=== PATIENT | male | born 1995 | race Two or more races ===

== ENCOUNTER 2020-04-12 09:25 | Outpatient (REF) | payer MEDICAID, SELFPAY | END 2020-04-12 09:26 | disposition home or self-care (01) | LOC: HO.LAB 09:25 | PROVIDERS: Visit Provider Internal Medicine | DX: Z20.822 Contact with and (suspected) exposure to COVID-19 (principal) | CPT/HCPCS: 36415; C9803; U0003; U0005 ==

== ENCOUNTER 2021-12-06 18:10 | Emergency (ER) | payer MEDICAID, SELFPAY | END 2021-12-06 19:37 | disposition left against medical advice (07) | PROVIDERS: Emergency Provider Emergency Medicine | DX: H57.11 Ocular pain, right eye (principal) ==

== ENCOUNTER 2022-05-20 11:37 | Emergency (ER) | payer MEDICAID, SELFPAY ==
--- NOTE | ~2022-05-20 | CT_ITS ---
EXAMINATION: CT SOFT TISSUE NECK WITH CONTRAST CLINICAL INFORMATION: Pain and swelling. COMPARISON: No relevant prior imaging. TECHNIQUE: Following the intravenous administration of 100 mL of Omnipaque 350 intravenous contrast, helical imaging was performed in the axial plane with generation of coronal and sagittal reformatted images. This CT examination was performed using dose optimization techniques as appropriate, variously including the following: *Automated exposure control *Adjustment of mA and/or kV according to patient size (this includes techniques or standardized protocols for targeted exams where dose is matched to indication/reason for exam; i.e. extremities or head) *Use of iterative reconstruction technique DLP: 1892 mGy-cm FINDINGS: There is no discrete drainable fluid collection. No pathologically enlarged cervical lymph nodes. No mediastinal or axillary adenopathy is visualized within the [id number] of this examination. Pharyngeal mucosal spaces are unremarkable. Parapharyngeal and retromaxillary fat is preserved. Api Developer spaces are symmetric. The parotid and submandibular glands are normal. The tongue base and epiglottis are normal. Preepiglottic fat is preserved. Glottic and subglottic airways are widely patent. The thyroid gland is normal and the remainder of the visualized visceral soft tissues are normal. Lung apices are clear. Aortic arch apex is normal. Cervical carotid and vertebral arteries are patent. Internal jugular veins fill symmetrically. There is no acute osseous finding. No worrisome lytic or blastic osseous lesion. Grossly no spinal canal compromise. The skull base is intact. No mastoid middle ear effusion. No active paranasal sinus disease. Limited visualization the intracranial anatomy reveals no abnormal finding. CT/CT soft tissue neck w IV con IMPRESSION: Unremarkable soft tissue neck CT scan. No discrete drainable fluid collection or abnormal inflammatory changes. No pathologically enlarged cervical lymph nodes.
--- NOTE | ~2022-05-20 | XR_ITS ---
EXAMINATION: XR CHEST CLINICAL INFORMATION: Chest pain. COMPARISON: None available. TECHNIQUE: Frontal view of the chest was obtained. FINDINGS: No significant abnormality is noted involving the heart, lungs, mediastinum, bony thorax or soft tissues. XR/XR chest 1V IMPRESSION: No acute cardiopulmonary process.
--- NOTE | ~2022-05-20 | CT_ITS ---
EXAMINATION: CT CHEST, ABDOMEN AND PELVIS WITH CONTRAST CLINICAL INFORMATION: Reason for Exam epigastric pain. Abdominal pain. COMPARISON: No pertinent prior studies are available for comparison TECHNIQUE: Multidetector volumetric imaging was performed from the thoracic inlet through the pubic symphysis following the administration of: Oral contrast: None Intravenous contrast: 125 mL Omnipaque 350 No contrast reaction reported Sagittal and coronal reformatted images were obtained on the technologist workstation. Total exam dose-length product 654 mGy-cm FINDINGS: CHEST: Lung: Trachea and central airway are patent. No focal consolidation. No significant pulmonary nodules are seen. Pleura: No pleural effusion or pneumothorax. Mediastinum: No suspicious thyroid findings. Normal heart size. No pericardial effusion. No hilar or mediastinal lymphadenopathy. Vascular: Normal caliber aorta.. Chest Wall/Axilla: No axillary or internal mammary lymphadenopathy. ABDOMEN/PELVIS: Liver, Gallbladder and Biliary Tree: The liver is normal in size, shape, and attenuation. No focal hepatic lesion or biliary ductal dilatation is present. The gallbladder is unremarkable with no evidence of radiopaque gallstones, gallbladder wall thickening, or obvious pericholecystic inflammatory changes. Pancreas: Unremarkable. No acute inflammatory changes. Spleen: Unremarkable. No focal lesion. Adrenal Glands: Unremarkable Kidneys and Ureters: The kidneys are normal in size, shape, and attenuation. No hydronephrosis, hydroureter, or calculi. Gastrointestinal Tract: Stomach and small bowel non-dilated. No colonic wall thickening or pericolonic inflammatory changes. The appendix is not identified. There appears be surgical clip in the cecum, could reflect prior appendectomy. No acute inflammatory changes seen in the right upper quadrant. No free fluid. No free air. Abdominal Wall: No significant hernia is appreciated. Lymphovascular Structures: No lymphadenopathy. The aorta is unremarkable. Bladder: No focal mass or wall thickening seen. No bladder calculi. Pelvic Viscera: Unremarkable. Osseous Structures: No acute or suspicious osseous abnormality. CT/CT abdomen pelvis w IV con IMPRESSION: *No acute findings identified in the chest. *No acute findings identified in the abdomen or pelvis. *The appendix not visualized. Question prior appendectomy. *Etiology of the patient's symptoms has not been identified by CT.
[2022-05-20 11:45] VITALS: BP 164/82; BP 198/105; PULSE 101; PULSE 108; RESP 20; TEMP 36.8; O2SAT 100; BMI 26.6
--- NOTE | 2022-05-20 11:45 | ED.GENADULT ---
HPI - General Adult General Chief complaint: General Medical Stated complaint: Panic attack, SOB per EMS Time Seen by Provider: 05/20/22 11:44 Source: patient and EMS Mode of arrival: EMS Limitations: no limitations History of Present Illness HPI narrative: Patient is a 26 year old assigned male at with a history of anxiety presenting to the emergency department today with epigastric pain, neck pain, and an anxiety attack. Patient states that he has been nauseous and vomiting but now he is having epigastric pain and neck pain. Patient denies any dizziness, lightheadedness, fever, chills, blurry vision, double vision, loss of vision, chest pain, difficulty breathing, shortness of breath, back pain, night sweats, pain with urination, increased urinary frequency, increased urinary urgency, blood in his urine or stool, syncope or a near syncopal episode, recent trauma or falls, bowel incontinence, bladder incontinence, bowel retention, bladder retention, or any other complaints at this time. Onset (ago): minute(s) Location: chest Severity: mild Severity scale (1-10): 3 Relieving factors: none Exacerbating factors: none Associated symptoms: nausea/vomiting Treatments prior to arrival: none Related Data Previous Rx's Medication Instructions Recorded metoclopramide HCl 10 mg tablet 10 mg PO Q6H PRN nausea and 05/20/22 (Reglan) vomiting #10 tabs Allergies Allergy/AdvReac Type Severity Reaction Status Date / Time No Known Allergies Allergy Unverified 11/19/19 16:18 [No Known Allergies*] Review of Systems Constitutional: Constitutional: Reports no additional constitutional complaints, Denies chills, Denies fever(s) and Denies night sweats Eyes: Eyes: Reports no additional eye complaints, Denies blurry vision, Denies change in vision, Denies diplopia, Denies eye discharge, Denies loss of vision and Denies eye pain ENT: Denies dizziness and Reports neck pain Cardiovascular: Cardiovascular: Reports no additional cardiovascular complaints, Denies chest pain, Denies lightheadedness, Denies Loss of Consciousness and Denies dyspnea Respiratory: Respiratory: Reports no additional respiratory complaints and Denies dyspnea Gastrointestinal: Gastrointestinal: Reports no additional gastrointestinal complaints, Reports abdominal pain, Denies melena, Denies hematochezia, Denies change in bowel habits, Denies change in stool character, Reports nausea and Reports vomiting Genitourinary: Genitourinary: Reports no additional male genitourinary complaints, Denies hematuria, Denies oliguria, Denies difficulty urinating, Denies dysuria, Denies urinary frequency, Denies urinary hesitancy, Denies urinary incontinence and Denies urinary urgency Musculoskeletal: Musculoskeletal: Reports no additional musculoskeletal complaints, Reports neck pain, Denies numbness and Denies tingling Neurologic: Denies dizziness, Denies loss of vision, Denies numbness and Denies tingling Psychiatric: Psychiatric: Reports no additional psychiatric complaints Endocrine: Endocrine: Reports no additional endocrine complaints Hematologic/Lymphatic: Hematologic/Lymphatic: Reports no additional hematologic/lymphatic complaints Allergic/Immunologic: Allergic/Immunologic: Reports no additional allergic/immunologic complaints [facility] Past Medical History Attestation statement: The following information was validated with the patient. Source: old records reviewed and nursing notes reviewed Social History Social History Smoked in Last 30 Days: No Use of substances other than those prescribed or required for medical reasons: Yes Substance Use Type: Marijuana Substance Use Frequency: Daily Last Used Substance: Days (ago) Advance Directives: No Advance Directives Information Provided: No Physical Exam ED Vital Signs: Vital Signs - 24 hr 05/20/22 11:45 05/20/22 12:19 05/20/22 13:17 Temperature 98.2 F Pulse Rate 101 H Pulse Rate [Apical] 101 H Respiratory Rate 20 20 Blood Pressure 198/105 H Pulse Oximetry 100 Oxygen Delivery Method Room Air 05/20/22 13:26 05/20/22 14:35 Temperature 98.8 F Pulse Rate 95 109 H Pulse Rate [Apical] Respiratory Rate 16 Blood Pressure 172/95 H Pulse Oximetry 98 Oxygen Delivery Method Room Air BMI result Body Mass Index 26.6 Const General: cooperative, no acute distress, alert and awake Nutritional Appearance: well nourished Orientation/consciousness: patient oriented x3 Limitations: no limitations HENMT Head: Yes normal to inspection and Yes atraumatic Ears: hearing grossly normal bilaterally and external ears normal General nose exam: Normal external nose present, no nasal discharge noted and no epistaxis Face and sinus: Yes normal facial exam, No abrasion and No laceration Mouth: Normal oral and palatal mucosa present, no drooling and no muffled voice Eyes General: appearance normal, both eyes and all related structures Periorbital: periorbital findings normal Eyelids: Yes eyelids normal Conjunctivae: conjunctivae normal Pupils: Equal, round and reactive pupils present EOM: EOMs intact bilaterally Neck Neck: Yes normal visual inspection, Yes full ROM and Yes no lymphadenopathy Chest Chest palpation & inspection: normal inspection of the chest Resp Effort & Inspection: normal respiratory effort and able to speak in complete sentences Auscultation: clear to auscultation bilaterally Cardio Rate: tachycardic Rhythm: regular rhythm GI Inspection: Yes normal to inspection Palpation (GI): Soft to palpation, not firm, nontender, no guarding and not rigid Neuro General: patient oriented x3 and moves all extremities Cranial nerves: Yes Equal, round and reactive pupils present Cognition (Neuro): normal cognition Motor exam (neuro): 5/5 motor strength present throughout Sensory Exam: Normal double simultaneous stimulation for sensation Coordination: [id number] test normal Extrem General: Yes normal to inspection, Yes full ROM and Yes capillary refill normal Psych Appearance: grossly normal Mental Status: mental status grossly normal Affect: normal affect Attitude: cooperative Thought process: Normal thought process present Thought content: Normal thought content present Insight: Good insight present (Psych) Medications Administered Discontinued Medications Generic Name Dose Route Start Last Admin Trade Name Freq PRN Reason Stop Dose Admin Al Hydroxide/Mg Hydroxide 15 ml 05/20/22 13:08 05/20/22 13:16 Magnesium Hydrox/Alum Hydrox 30 Ml Oral.Susp PO 05/20/22 13:09 15 ml ONCE ONE Administration Sodium Chloride 1,000 mls @ 999 mls/hr 05/20/22 12:00 05/20/22 12:59 Ns IV 05/20/22 13:00 Infused .Q1H1M PRIYANKA Infusion Sodium Chloride 1,000 mls @ 999 mls/hr 05/20/22 15:15 05/20/22 16:51 Ns IV 05/20/22 16:15 Infused .Q1H1M PRIYANKA Infusion Iohexol 100 ml 05/20/22 14:02 05/20/22 14:02 Iohexol 350 Mg/Ml 100 Ml Infus..Btl IV 05/20/22 14:03 100 ml ONCE ONE Administration Lorazepam 1 mg 05/20/22 11:48 05/20/22 12:07 Lorazepam 2 Mg/Ml Vial IVPUSH 05/20/22 11:49 1 mg ONCE ONE Administration Metoclopramide HCl 10 mg 05/20/22 15:13 05/20/22 15:26 Metoclopramide Hcl 10 Mg/2 Ml Vial IVPUSH 05/20/22 15:14 10 mg ONCE ONE Administration Morphine Sulfate 4 mg 05/20/22 13:08 05/20/22 13:17 Morphine Sulfate 4 Mg/Ml Cartridge IVPUSH 05/20/22 13:09 4 mg ONCE ONE Administration Protocol Ondansetron HCl 4 mg 05/20/22 13:08 05/20/22 13:17 Ondansetron Hcl 4 Mg/2 Ml Vial IVPUSH 05/20/22 13:09 4 mg ONCE ONE Administration Pantoprazole Sodium 40 mg 05/20/22 11:48 05/20/22 12:07 Pantoprazole Sodium 40 Mg/10 Ml Vial IVPUSH 05/20/22 11:49 40 mg ONCE ONE Administration Medical Decision Making Medical Decision Making [facility] Narrative: Patient is a 26 year old assigned male at with a history of anxiety and diabetes presenting to the emergency department today with nausea, vomiting, epigastric pain, and neck pain. Patient's physical exam showed tachycardia but was otherwise unremarkable. Patient's blood work was unremarkable. Patient's urine showed no acute process. Patient's drug screen did come back positive for opiates however, I believe this to be secondary to the morphine we gave him in the department. Patient's EKG showed tachycardia. Patient's chest x-ray, chest CT, soft tissue next CT, and abdomen/pelvis CT showed no acute process. I explained my physical exam findings as well as all test results to the patient. I answered all questions asked by the patient. Patient received IV fluids and anit-emetics which he stated helped his symptoms significantly. I stressed the importance of the patient taking his medication as prescribed. I stressed the importance of the patient following up with his primary care provider. I stressed the importance of the patient returning to the emergency department immediately if his symptoms were to worsen or if he were to develop any dizziness, shortness of breath, difficulty breathing, chest pain, blurry vision, loss of vision, nausea, vomiting, abdominal pain, fever, chills, back pain, or any other complaints. Patient verbalized agreement and understanding with this treatment plan and discharge. Differential Diagnosis Differential Diagnoses: The differential diagnosis associated with the presentation includes viral illness, nausea, vomiting Lab Data MDM Lab Attestation statement: I reviewed the patient's lab results. 05/20/22 12:01 05/20/22 12:01 Labs: Lab Results 05/20/22 05/20/22 05/20/22 Range/Units 11:52 12:01 12:01 WBC 11.1 H (4.8-10.8) X10*3/uL RBC 4.89 (4.60-5.80) X10*6/uL Hgb 14.9 (14.0-18.0) g/dl Hct 41.4 L (42.0-52.0) % MCV 84.7 (80.0-98.0) fL MCH 30.5 (27.0-33.0) pg MCHC 36.0 (31.0-36.0) g/dl RDW 11.7 (11.0-16.0) % Plt Count 256 (160-400) X10*3/uL MPV 10.8 (9.4-12.4) fL Immature Gran % (Auto) 0.3 (0.0-0.4) % Neut % (Auto) 76.1 H (45-73) % Lymph % (Auto) 17.1 L (20-40) % [place] % (Auto) 5.9 (2-11) % Eos % (Auto) 0.2 (0-4) % Baso % (Auto) 0.4 (0-2) % Lymph # (Auto) 1.9 (1.2-4.9) X10*3/uL [place] # (Auto) 0.7 (0.1-1.2) X10*3/uL Eos # (Auto) 0.0 (0.0-0.4) X10*3/uL Baso # (Auto) 0.1 (0.0-0.2) X10*3/uL Abs Immat Gran (auto) 0.03 (0.00-0.03) X10*3/uL Absolute Neuts (auto) 8.5 H (2.0-8.3) x10*3/uL Absolute Nucleated RBC 0.000 (0.0-0.012) X10*3/uL Nucleated RBC % (auto) 0.0 (0.0-0.2) /100WBC VBG pH (7.32-7.43) VBG pCO2 mmHg VBG pO2 mmHg VBG HCO3 (22-26) mmol/L VBG O2 Saturation % VBG Base Excess mmol/L Sodium 137 (135-145) mmol/L Potassium 4.9 (3.3-5.1) mmol/L Chloride 100 (96-108) mmol/L Carbon Dioxide 22 (22-29) mmol/L Anion Gap 20 (12-20) BUN 18 H (9-16) mg/dL Creatinine 1.04 (0.5-1.4) mg/dL Estim Creat Clear Calc 98.8 Estimated GFR > 60 Random Glucose 314 H (60-115) mg/dL Calcium 10.0 (8.4-10.2) mg/dL Magnesium 1.9 (1.6-2.6) mg/dL Total Bilirubin 1.7 H (0.0-1.0) mg/dL AST 21 (5-37) U/L ALT 12 (0-40) U/L Alkaline Phosphatase 90 (39-117) U/L Ammonia (13-55) umol/L Total Creatine Kinase 79 (38-174) U/L Troponin I High Sens (<3.5-35.0) ng/L Total Protein 7.8 (6.5-8.0) g/dL Albumin 4.6 (3.5-5.0) g/dL Lipase 20 (8-78) U/L Urine Color Urine Appearance Urine pH (5.0-9.0) Ur Specific [place] (1.005-1.025) Urine Protein (Neg-Trace) mg/dL Urine Glucose (UA) (Negative) mg/dL Urine Ketones (Negative) mg/dL Urine Blood (Negative) Urine Nitrite (Negative) Ur Leukocyte Esterase (Negative) Urine RBC (0-2) /HPF Urine WBC (0-5) /HPF Ur Squamous Epith Cells (0-2) /HPF Urine Bacteria (None Seen) Hyaline Casts (0-2) /LPF Urine Opiates Screen (Not Detect) Urine Fentanyl Screen (Not Detect) Ur Barbiturates Screen (Not Detect) Ur Phencyclidine Scrn (Not Detect) Ur Amphetamines Screen (Not Detect) U Benzodiazepines Scrn (Not Detect) Urine Cocaine Screen (Not Detect) U Marijuana (THC) Screen (Not Detect) Ethyl Alcohol mg/dL COVID-19 ([facility]) Negative (Negative) COVID-19 Clin Com See Note S. pyogenes GrpA JOSE (Negative) 05/20/22 05/20/22 05/20/22 Range/Units 12:01 12:01 12:01 WBC (4.8-10.8) X10*3/uL RBC (4.60-5.80) X10*6/uL Hgb (14.0-18.0) g/dl Hct (42.0-52.0) % MCV (80.0-98.0) fL MCH (27.0-33.0) pg MCHC (31.0-36.0) g/dl RDW (11.0-16.0) % Plt Count (160-400) X10*3/uL MPV (9.4-12.4) fL Immature Gran % (Auto) (0.0-0.4) % Neut % (Auto) (45-73) % Lymph % (Auto) (20-40) % [place] % (Auto) (2-11) % Eos % (Auto) (0-4) % Baso % (Auto) (0-2) % Lymph # (Auto) (1.2-4.9) X10*3/uL [place] # (Auto) (0.1-1.2) X10*3/uL Eos # (Auto) (0.0-0.4) X10*3/uL Baso # (Auto) (0.0-0.2) X10*3/uL Abs Immat Gran (auto) (0.00-0.03) X10*3/uL Absolute Neuts (auto) (2.0-8.3) x10*3/uL Absolute Nucleated RBC (0.0-0.012) X10*3/uL Nucleated RBC % (auto) (0.0-0.2) /100WBC VBG pH (7.32-7.43) VBG pCO2 mmHg VBG pO2 mmHg VBG HCO3 (22-26) mmol/L VBG O2 Saturation % VBG Base Excess mmol/L Sodium (135-145) mmol/L Potassium (3.3-5.1) mmol/L Chloride (96-108) mmol/L Carbon Dioxide (22-29) mmol/L Anion Gap (12-20) BUN (9-16) mg/dL Creatinine (0.5-1.4) mg/dL Estim Creat Clear Calc Estimated GFR Random Glucose (60-115) mg/dL Calcium (8.4-10.2) mg/dL Magnesium (1.6-2.6) mg/dL Total Bilirubin (0.0-1.0) mg/dL AST (5-37) U/L ALT (0-40) U/L Alkaline Phosphatase (39-117) U/L Ammonia 28 (13-55) umol/L Total Creatine Kinase (38-174) U/L Troponin I High Sens < 3.5 (<3.5-35.0) ng/L Total Protein (6.5-8.0) g/dL Albumin (3.5-5.0) g/dL Lipase (8-78) U/L Urine Color Urine Appearance Urine pH (5.0-9.0) Ur Specific [place] (1.005-1.025) Urine Protein (Neg-Trace) mg/dL Urine Glucose (UA) (Negative) mg/dL Urine Ketones (Negative) mg/dL Urine Blood (Negative) Urine Nitrite (Negative) Ur Leukocyte Esterase (Negative) Urine RBC (0-2) /HPF Urine WBC (0-5) /HPF Ur Squamous Epith Cells (0-2) /HPF Urine Bacteria (None Seen) Hyaline Casts (0-2) /LPF Urine Opiates Screen (Not Detect) Urine Fentanyl Screen (Not Detect) Ur Barbiturates Screen (Not Detect) Ur Phencyclidine Scrn (Not Detect) Ur Amphetamines Screen (Not Detect) U Benzodiazepines Scrn (Not Detect) Urine Cocaine Screen (Not Detect) U Marijuana (THC) Screen (Not Detect) Ethyl Alcohol < 10 mg/dL COVID-19 ([facility]) (Negative) COVID-19 Clin Com S. pyogenes GrpA JOSE (Negative) 05/20/22 05/20/22 05/20/22 Range/Units 12:05 14:15 14:47 WBC (4.8-10.8) X10*3/uL RBC (4.60-5.80) X10*6/uL Hgb (14.0-18.0) g/dl Hct (42.0-52.0) % MCV (80.0-98.0) fL MCH (27.0-33.0) pg MCHC (31.0-36.0) g/dl RDW (11.0-16.0) % Plt Count (160-400) X10*3/uL MPV (9.4-12.4) fL Immature Gran % (Auto) (0.0-0.4) % Neut % (Auto) (45-73) % Lymph % (Auto) (20-40) % [place] % (Auto) (2-11) % Eos % (Auto) (0-4) % Baso % (Auto) (0-2) % Lymph # (Auto) (1.2-4.9) X10*3/uL [place] # (Auto) (0.1-1.2) X10*3/uL Eos # (Auto) (0.0-0.4) X10*3/uL Baso # (Auto) (0.0-0.2) X10*3/uL Abs Immat Gran (auto) (0.00-0.03) X10*3/uL Absolute Neuts (auto) (2.0-8.3) x10*3/uL Absolute Nucleated RBC (0.0-0.012) X10*3/uL Nucleated RBC % (auto) (0.0-0.2) /100WBC VBG pH 7.47 H (7.32-7.43) VBG pCO2 28 mmHg VBG pO2 54 mmHg VBG HCO3 20 L (22-26) mmol/L VBG O2 Saturation 86.0 % VBG Base Excess -1.3 mmol/L Sodium (135-145) mmol/L Potassium (3.3-5.1) mmol/L Chloride (96-108) mmol/L Carbon Dioxide (22-29) mmol/L Anion Gap (12-20) BUN (9-16) mg/dL Creatinine (0.5-1.4) mg/dL Estim Creat Clear Calc Estimated GFR Random Glucose (60-115) mg/dL Calcium (8.4-10.2) mg/dL Magnesium (1.6-2.6) mg/dL Total Bilirubin (0.0-1.0) mg/dL AST (5-37) U/L ALT (0-40) U/L Alkaline Phosphatase (39-117) U/L Ammonia (13-55) umol/L Total Creatine Kinase (38-174) U/L Troponin I High Sens (<3.5-35.0) ng/L Total Protein (6.5-8.0) g/dL Albumin (3.5-5.0) g/dL Lipase (8-78) U/L Urine Color Yellow Urine Appearance Clear Urine pH 6.0 (5.0-9.0) Ur Specific [place] >= 1.030 H (1.005-1.025) Urine Protein 300 (3+) H (Neg-Trace) mg/dL Urine Glucose (UA) >=1000 H (Negative) mg/dL Urine Ketones 80 (Negative) mg/dL Urine Blood Large (3+) H (Negative) Urine Nitrite Negative (Negative) Ur Leukocyte Esterase Negative (Negative) Urine RBC >20 H (0-2) /HPF Urine WBC 0-5 (0-5) /HPF Ur Squamous Epith Cells 0-2 (0-2) /HPF Urine Bacteria None Seen (None Seen) Hyaline Casts 0-2 (0-2) /LPF Urine Opiates Screen (Not Detect) Urine Fentanyl Screen (Not Detect) Ur Barbiturates Screen (Not Detect) Ur Phencyclidine Scrn (Not Detect) Ur Amphetamines Screen (Not Detect) U Benzodiazepines Scrn (Not Detect) Urine Cocaine Screen (Not Detect) U Marijuana (THC) Screen (Not Detect) Ethyl Alcohol mg/dL COVID-19 ([facility]) (Negative) COVID-19 Clin Com S. pyogenes GrpA JOSE Negative (Negative) 05/20/22 Range/Units 14:47 WBC (4.8-10.8) X10*3/uL RBC (4.60-5.80) X10*6/uL Hgb (14.0-18.0) g/dl Hct (42.0-52.0) % MCV (80.0-98.0) fL MCH (27.0-33.0) pg MCHC (31.0-36.0) g/dl RDW (11.0-16.0) % Plt Count (160-400) X10*3/uL MPV (9.4-12.4) fL Immature Gran % (Auto) (0.0-0.4) % Neut % (Auto) (45-73) % Lymph % (Auto) (20-40) % [place] % (Auto) (2-11) % Eos % (Auto) (0-4) % Baso % (Auto) (0-2) % Lymph # (Auto) (1.2-4.9) X10*3/uL [place] # (Auto) (0.1-1.2) X10*3/uL Eos # (Auto) (0.0-0.4) X10*3/uL Baso # (Auto) (0.0-0.2) X10*3/uL Abs Immat Gran (auto) (0.00-0.03) X10*3/uL Absolute Neuts (auto) (2.0-8.3) x10*3/uL Absolute Nucleated RBC (0.0-0.012) X10*3/uL Nucleated RBC % (auto) (0.0-0.2) /100WBC VBG pH (7.32-7.43) VBG pCO2 mmHg VBG pO2 mmHg VBG HCO3 (22-26) mmol/L VBG O2 Saturation % VBG Base Excess mmol/L Sodium (135-145) mmol/L Potassium (3.3-5.1) mmol/L Chloride (96-108) mmol/L Carbon Dioxide (22-29) mmol/L Anion Gap (12-20) BUN (9-16) mg/dL Creatinine (0.5-1.4) mg/dL Estim Creat Clear Calc Estimated GFR Random Glucose (60-115) mg/dL Calcium (8.4-10.2) mg/dL Magnesium (1.6-2.6) mg/dL Total Bilirubin (0.0-1.0) mg/dL AST (5-37) U/L ALT (0-40) U/L Alkaline Phosphatase (39-117) U/L Ammonia (13-55) umol/L Total Creatine Kinase (38-174) U/L Troponin I High Sens (<3.5-35.0) ng/L Total Protein (6.5-8.0) g/dL Albumin (3.5-5.0) g/dL Lipase (8-78) U/L Urine Color Urine Appearance Urine pH (5.0-9.0) Ur Specific [place] (1.005-1.025) Urine Protein (Neg-Trace) mg/dL Urine Glucose (UA) (Negative) mg/dL Urine Ketones (Negative) mg/dL Urine Blood (Negative) Urine Nitrite (Negative) Ur Leukocyte Esterase (Negative) Urine RBC (0-2) /HPF Urine WBC (0-5) /HPF Ur Squamous Epith Cells (0-2) /HPF Urine Bacteria (None Seen) Hyaline Casts (0-2) /LPF Urine Opiates Screen POSITIVE H (Not Detect) Urine Fentanyl Screen Not Detected (Not Detect) Ur Barbiturates Screen Not Detected (Not Detect) Ur Phencyclidine Scrn Not Detected (Not Detect) Ur Amphetamines Screen Not Detected (Not Detect) U Benzodiazepines Scrn Not Detected (Not Detect) Urine Cocaine Screen Not Detected (Not Detect) U Marijuana (THC) Screen POSITIVE H (Not Detect) Ethyl Alcohol mg/dL COVID-19 ([facility]) (Negative) COVID-19 Clin Com S. pyogenes GrpA JOSE (Negative) Independent Interpretation I performed an independent interpretation of an: EKG Interpretation: Vent. Rate: 104 BPM ? ? Atrial Rate: 104 BPM P-R Int: 126 ms? QRS Dur: 094 ms QT Int: 340 ms ? ? ? P-R-T Axes: 063 055 065 degrees QTc Int: 447 ms ? Sinus tachycardia with Premature atrial complexes with Aberrant conduction Otherwise normal ECG No previous ECGs available DD/ 1152 Radiology Impression Radiologist Impression: My interpretation is in agreement with the radiologist's impression of these imaging studies. EXAMINATION: XR CHEST CLINICAL INFORMATION: Chest pain. COMPARISON: None available. TECHNIQUE: Frontal view of the chest was obtained. FINDINGS: No significant abnormality is noted involving the heart, lungs, mediastinum, bony thorax or soft tissues. XR/XR chest 1V IMPRESSION: No acute cardiopulmonary process. Dictated By: Gonzalez Leong MD Signed By: Electronically signed by Gonzalez Leong MD 05/20/22 1233 EXAMINATION: CT CHEST, ABDOMEN AND PELVIS WITH CONTRAST CLINICAL INFORMATION: Reason for Exam epigastric pain. Abdominal pain. COMPARISON: No pertinent prior studies are available for comparison TECHNIQUE: Multidetector volumetric imaging was performed from the thoracic inlet through the pubic symphysis following the administration of: Oral contrast: None Intravenous contrast: 125 mL Omnipaque 350 No contrast reaction reported Sagittal and coronal reformatted images were obtained on the technologist workstation. Total exam dose-length product 654 mGy-cm FINDINGS: CHEST: Lung: Trachea and central airway are patent. No focal consolidation. No significant pulmonary nodules are seen. Pleura: No pleural effusion or pneumothorax. Mediastinum: No suspicious thyroid findings. Normal heart size.? No pericardial effusion.? No hilar or mediastinal lymphadenopathy. Vascular: Normal caliber aorta.. Chest Wall/Axilla: No axillary or internal mammary lymphadenopathy. ABDOMEN/PELVIS: Liver, Gallbladder and Biliary Tree: The liver is normal in size, shape, and attenuation. No focal hepatic lesion or biliary ductal dilatation is present. The gallbladder is unremarkable with no evidence of radiopaque gallstones, gallbladder wall thickening, or obvious pericholecystic inflammatory changes.? Pancreas: Unremarkable. No acute inflammatory changes.? Spleen: Unremarkable. No focal lesion.? Adrenal Glands: Unremarkable? Kidneys and Ureters: The kidneys are normal in size, shape, and attenuation. No hydronephrosis, hydroureter, or calculi. ? Gastrointestinal Tract: Stomach and small bowel non-dilated.? No colonic wall thickening or pericolonic inflammatory changes.? The appendix is not identified. There appears be surgical clip in the cecum, could reflect prior appendectomy. No acute inflammatory changes seen in the right upper quadrant. No free fluid. No free air. Abdominal Wall: No significant hernia is appreciated.? Lymphovascular Structures: No lymphadenopathy. The aorta is unremarkable.? Bladder: No focal mass or wall thickening seen.? No bladder calculi.? Pelvic Viscera: Unremarkable. Osseous Structures: No acute or suspicious osseous abnormality.? CT/CT abdomen pelvis w IV con IMPRESSION: *No acute findings identified in the chest. *No acute findings identified in the abdomen or pelvis. *The appendix not visualized. Question prior appendectomy. *Etiology of the patient's symptoms has not been identified by CT. ? Dictated By: Marino Mcak MD Signed By: Electronically signed by Marino Mack MD 05/20/22 1455 EXAMINATION: CT SOFT TISSUE NECK WITH CONTRAST CLINICAL INFORMATION: Pain and swelling.? COMPARISON: No relevant prior imaging.? ? TECHNIQUE: Following the intravenous administration of 100 mL of Omnipaque 350 intravenous contrast, helical imaging was performed in the axial plane with generation of coronal and sagittal reformatted images. This CT examination was performed using dose optimization techniques as appropriate, variously including the following: *Automated exposure control *Adjustment of mA and/or kV according to patient size (this includes techniques or standardized protocols for targeted exams where dose is matched to indication/reason for exam; i.e. extremities or head) *Use of iterative reconstruction technique DLP: 1892 mGy-cm FINDINGS: There is no discrete drainable fluid collection. No pathologically enlarged cervical lymph nodes. No mediastinal or axillary adenopathy is visualized within the [id number] of this examination. Pharyngeal mucosal spaces are unremarkable. Parapharyngeal and retromaxillary fat is preserved. Wardrobe Manager spaces are symmetric. The parotid and submandibular glands are normal. The tongue base and epiglottis are normal. Preepiglottic fat is preserved. Glottic and subglottic airways are widely patent. The thyroid gland is normal and the remainder of the visualized visceral soft tissues are normal. Lung apices are clear. Aortic arch apex is normal. Cervical carotid and vertebral arteries are patent. Internal jugular veins fill symmetrically. There is no acute osseous finding. No worrisome lytic or blastic osseous lesion. Grossly no spinal canal compromise. The skull base is intact. No mastoid middle ear effusion. No active paranasal sinus disease. Limited visualization the intracranial anatomy reveals no abnormal finding. CT/CT soft tissue neck w IV con IMPRESSION: Unremarkable soft tissue neck CT scan. No discrete drainable fluid collection or abnormal inflammatory changes. No pathologically enlarged cervical lymph nodes. Dictated By: Martin Martin MD Signed By: Electronically signed by Martin Martin MD 05/20/22 1528 Independent Historian Clinical information obtained from an independent historian. History obtained from or confirmed by: EMS Discharge Plan Discharge Clinical Impression: Lack of adequate sleep, Nausea & vomiting Patient Disposition: Home, Self-Care Instructions: Acute Nausea and Vomiting (ED) Additional Instructions: Follow up with your primary care provider. Return to the emergency department immediately if your symptoms worsen or if you develop any dizziness, shortness of breath, difficulty breathing, chest pain, blurry vision, loss of vision, nausea, vomiting, abdominal pain, fever, chills, back pain, or any other complaints. Prescriptions: New metoclopramide HCl [Reglan] 10 mg tablet 10 mg PO Q6H PRN (Reason: nausea and vomiting) Qty: 10 0RF Referrals: [facility] [Provider Group] (Call to establish and follow up with a urologist to discuss your difficulty urinating and erectile difficulties. ) [place],Leanne, CHAIR TRIMMER [Primary Care Provider] - Stand Alone Forms: Work/School Release Print Language: Armenian
--- NOTE | 2022-05-20 11:47 | ECG_ITS ---
Test Reason : chest pain Blood Pressure : / mmHG Vent. Rate : 104 BPM Atrial Rate : 104 BPM P-R Int : 126 ms QRS Dur : 094 ms QT Int : 340 ms P-R-T Axes : 063 055 065 degrees QTc Int : 447 ms Sinus tachycardia with Premature atrial complexes with Aberrant conduction Otherwise normal ECG No previous ECGs available Referred By: Laisha Vela Electronically Signed By:Marcus Valdes
[2022-05-20 12:07] LABS: MANUAL DIFF FLAG NO
[2022-05-20] MEDS: LORazepam 2 MG/ML VIAL 1 MG IVPUSH (12:07)
[2022-05-20] MEDS: 0.9 % Sodium Chloride 1,000 ML 999 ML IV ×2 (12:07→15:43)
[2022-05-20] MEDS: Pantoprazole Sodium 40 MG/10 ML VIAL IVPUSH (12:07)
[2022-05-20 12:08] LABS: Basophils Absolute Auto 0.1 X10*3/uL (0.0-0.2); Basophils Percent Auto 0.4 % (0-2); Eosinophils Percent Auto 0.2 % (0-4); Hematocrit 41.4 % (42.0-52.0); Hemoglobin 14.9 g/dl (14.0-18.0); Imm Gran Abs Auto 0.03 X10*3/uL (0.00-0.03); Imm Gran Pct Auto 0.3 % (0.0-0.4); Lymphocytes Absolute Auto 1.9 X10*3/uL (1.2-4.9); Lymphocytes Percent Auto 17.1 % (20-40); Mean Corpuscular Hemoglobin 30.5 pg (27.0-33.0); Mean Corpuscular Volume 84.7 fL (80.0-98.0); Mean Platelet Volume 10.8 fL (9.4-12.4); Monocytes Absolute Auto 0.7 X10*3/uL (0.1-1.2); Monocytes Percent Auto 5.9 % (2-11); Neutrophils Absolute Auto 8.5 x10*3/uL (2.0-8.3); Neutrophils Percent Auto 76.1 % (45-73); Platelet Count 256 X10*3/uL (160-400); Red Blood Count 4.89 X10*6/uL (4.60-5.80); Red Cell Distribution Width 11.7 % (11.0-16.0); White Blood Count 11.1 X10*3/uL (4.8-10.8)
[2022-05-20 12:11] LABS: VBG Base Excess -1.3 mmol/L; VBG HCO3 20 mmol/L (22-26); VBG pCO2 28 mmHg; VBG pH 7.47 (7.32-7.43); VBG pO2 54 mmHg
[2022-05-20 12:14] LABS: Venous Blood Gas Refer to POC result
[2022-05-20 12:19] VITALS: PULSE 101
[2022-05-20 12:19] LABS: Ammonia 28 umol/L (13-55)
[2022-05-20 12:30] LABS: COVID-19 Test Negative (Negative); IDNOW Serial# 08D9AD1C
[2022-05-20 12:34] LABS: Alanine Aminotransferase 12 U/L (0-40); Albumin Level 4.6 g/dL (3.5-5.0); Alkaline Phosphatase 90 U/L (39-117); Anion Gap 20 (12-20); Aspartate Amino Transferase 21 U/L (5-37); Bilirubin Total 1.7 mg/dL (0.0-1.0); Blood Urea Nitrogen 18 mg/dL (9-16); Carbon Dioxide 22 mmol/L (22-29); Chloride 100 mmol/L (96-108); Creatinine Clr Calc Pharmacy 98.8; Estimated Glomerular Filt Rate > 60; Ethanol < 10 mg/dL; Glucose Random 314 mg/dL (60-115); Magnesium 1.9 mg/dL (1.6-2.6); Potassium 4.9 mmol/L (3.3-5.1); Sodium 137 mmol/L (135-145); Total Protein 7.8 g/dL (6.5-8.0); Troponin-I High Sensitivity < 3.5 ng/L (<3.5-35.0)
--- OUTSIDE RECORDS SUMMARY | 2022-05-20 12:40 | XMS_ITS | Continuity of Care Document ---
:1995 Author Organization [facility] Address [address] [place] [id number]- Care Team Providers Name Role Phone Tete Sutherland MD Primary Care Physician Encounter [facility] ACCT R [id number] Date(s): 10/27/20 - 10/27/[address] [address]- Discharge Disposition: A-D/C Walkout Attending Physician: Not on Staff, Attending MD Admitting Physician: Not on Staff, Admitting MD Referring Physician: Not on Staff, Referring MD Allergies, Adverse Reactions, Alerts Substance Reaction Severity Status NKA Active Medications BD Ultra-Fine 33G Lancets See Instructions, # 200 each, Refills 5, Tot. Refills 5, Maintenance, use as directed for Type 1 Diabetes Mellitus, 11/03/10 17:07:08 Start Date: 11/03/10 Stop Date: 05/02/11 Status: OrderedFreestyle Lite Lancets See Instructions, # 150 application, Refills 5, Tot. Refills 5, Maintenance, use as directed for Type 2 Diabetes Mellitus. check 4-5times a day, 04/09/12 15:09:59 Start Date: 04/09/12 Stop Date: 05/09/12 Status: OrderedFreestyle Lite Monitor See Instructions, # 1 each, Refills 5, Tot. Refills 5, Maintenance, use as directed for Type 1 Diabetes Mellitus, 01/22/11 14:36:41 Start Date: 01/22/11 Stop Date: 07/21/11 Status: OrderedFreestyle Lite Test Strips See Instructions, # 150 application, Maintenance, use as directed for Type 2 Diabetes Mellitus, check 4-5 times a day, 04/24/12 15:54:02 Start Date: 2/21/13 Stop Date: 05/24/12 Status: OrderedFreestyle Lite Test Strips See Instructions, # 200 each, Refills 11, Tot. Refills 11, Maintenance, DX: Type 2 Diabetes Mellitus, insulin requiring monitor blood sugars as directed up to 6 times per day, 06/16/13 16:57:20, Compound Start Date: 06/16/13 Stop Date: 06/11/14 Status: OrderedFreestyle Lite Test Strips See Instructions, # 150 application, Maintenance, use as directed for Type 2 Diabetes Mellitus, check 4-5 times a day, 10/31/11 15:14:02 Start Date: 10/31/11 Stop Date: 11/30/11 Status: OrderedGlucagon Emergency Kit See Instructions, Refills 11, Maintenance, use for t1dm, 01/04/12 15:05:37 Start Date: 01/04/12 Status: OrderedHumalog 100 u/ml subcutaneous injection Max dose of 60 units per day , Subcutaneous Injection, 3 times a day before meals, # 2 vials, 11 Refills, Maintenance Start Date: 08/05/09 Status: OrderedHumalog Kwik Pen 100 units/mL subcutaneous injection See Instructions, Subcutaneous Infusion, Use as directed for Diabetes mellitus type 1. (Max Dose=50 units/day), 11 Refills, Maintenance, 30, days Start Date: 04/24/12 Stop Date: 04/19/13 Status: OrderedInsulin Syringe, BD Ultra-Fine 1 cc 31 G x 8 mm (5/16in) See Instructions, Refills 11, Tot. Refills 5, Maintenance, use for t1dm 4-5 times daily, 01/04/12 15:06:09 Start Date: 01/04/12 Status: OrderedKetostix, Foil Wrapped See Instructions, # 50 each, Refills 5, Tot. Refills 5, Maintenance, use for t1dm, 08/10/09 15:31:48 Start Date: 08/10/09 Status: OrderedLantus Solostar Pen 100 units/mL subcutaneous solution See Instructions, Subcutaneous Injection, Use as directed for Diabetes mellitus type 1. (Max Dose = 70 units), # 3 vials, 11 Refills, Maintenance, 06/16/13 16:50:48, Use as directed for Diabetes mellitus type 1. (Max Dose = 70 units) Start Date: 06/16/13 Stop Date: 06/11/14 Status: OrderedLantus Solostar Pen 100 units/mL subcutaneous solution See Instructions, Subcutaneous Injection, Use as directed for Diabetes mellitus type 1. (Max Dose = 100 units/day), # 10 each, 6 Refills, Maintenance Start Date: 03/10/10 Stop Date: 10/06/10 Status: Orderedlisinopril 10 mg oral tablet 1 tablet = 10 mg, By Mouth, Daily, # 30 tablet, 6 Refills, Maintenance, Tablet, 1 tablet By Mouth Daily Start Date: 10/21/12 Status: Orderedmetformin 500 mg oral tablet, extended release 4 tablet = 2,000 mg, By Mouth, Daily, # 120 tablet, 11 Refills, Maintenance, 06/16/13 16:53:56, ER Tablet, 4 tablet By Mouth Daily Start Date: 06/16/13 Status: OrderedNovoLog Mix 70/30 FlexPen subcutaneous suspension See Instructions, Max dose of 70 units per day use as directed for IDDM, # 7 each, 11 Refills, Maintenance, 06/16/13 16:52:00, Suspension, Max dose of 70 units per day use as directed for IDDM Start Date: 06/16/13 Status: OrderedNovoLog Mix 70/30 subcutaneous suspension max dose of 60 units per day , Subcutaneous Infusion, Daily, # 2 vials, 11 Refills, Maintenance Start Date: 08/05/09 Status: OrderedOne Touch Ultra Test Strips See Instructions, # 200 each, Refills 5, Tot. Refills 5, Maintenance, Use as directed for T2DM. Test4-6x/day, 08/21/10 15:54:34 Start Date: 08/21/10 Status: OrderedPen [place], 32 G x 4 mm BD Ultra Fine III See instructions, # 150 each, Refills 11, Tot. Refills 11, Maintenance, DX: Type 2 Diabetes Mellitususe for insulin administration sc via insulin pen up to 5 times per day, 06/16/13 16:55:05, Compound Start Date: 06/16/13 Stop Date: 06/11/14 Status: Ordered Problem List Condition Effective Dates Status Health Status Informant Diabetes mellitus type 2(Confirmed) Active
[2022-05-20] MEDS: Magnesium Hydrox/Alum Hydrox 30 ML ORAL.SUSP 15 ML PO (13:16)
[2022-05-20 13:17] VITALS: RESP 20
[2022-05-20] MEDS: ondansetron HCL 4 MG/2 ML VIAL IVPUSH (13:17)
[2022-05-20] MEDS: Morphine Sulfate 4 MG/ML CARTRIDGE IVPUSH (13:17)
--- NOTE | 2022-05-20 13:25 | PC.NURSE ---
Provider and nurse at bedside, pt attempting to get up to use BR. Pt not opening his eyes fully, no fully responding to questions and swaying back and forth. Pt used commode for BR, unable to produce urine sample. Pt continues to verbalize sternal pain, PRN given.
[2022-05-20 13:26] VITALS: PULSE 95
[2022-05-20 13:42] LABS: Lipase 20 U/L (8-78)
[2022-05-20] MEDS: iohexoL 350 MG/ML 100 ML INFUS..BTL IV (14:02)
--- NOTE | 2022-05-20 14:03 | MHC.EDTECH ---
Pt bladder scanned and result was 552ml. MITCH Moreno aware and stated she would let provider know.
[2022-05-20 14:35] VITALS: BP 172/95; PULSE 109; RESP 16; TEMP 37.1; O2SAT 98
[2022-05-20 14:54] LABS: Appearance Urine Clear; Color Urine Yellow; Glucose Urine UA >=1000 mg/dL (Negative); Leukocyte Esterase Urine Negative (Negative); Nitrite Urine Negative (Negative); Specific Gravity - Urine >= 1.030 (1.005-1.025); UMIC TRIGGER UACC YES; Urine Blood Large (3+) (Negative); Urine Ketones 80 mg/dL (Negative); Urine Protein 300 (3+) mg/dL (Neg-Trace)
[2022-05-20 14:57] LABS: Bacteria Urine None Seen (None Seen); Hyaline Casts Urine 0-2 /LPF (0-2); RBC Urine >20 /HPF (0-2); Squamous Epithelial Cell Urine 0-2 /HPF (0-2); WBC Urine 0-5 /HPF (0-5)
[2022-05-20 15:16] LABS: IDNOW Serial# 08D9AD1C; Strep A Nucleic Acid Negative (Negative)
[2022-05-20] MEDS: Metoclopramide HCl 10 MG/2 ML VIAL IVPUSH (15:26)
[2022-05-20 15:35] LABS: Amphetamine Screen Urine Not Detected (Not Detect); Barbiturates, Urine Not Detected (Not Detect); Benzodiazepines Screen Urine Not Detected (Not Detect); Cannabinoid Screen Urine POSITIVE (Not Detect); Cocaine Screen Urine Not Detected (Not Detect); Fentanyl, urine Not Detected (Not Detect); Opiate Screen Urine POSITIVE (Not Detect); Phencyclidine Screen Urine Not Detected (Not Detect)
--- NOTE | 2022-05-20 15:49 | PC.NURSE ---
Pt girlfriend asking if patient can have a drink of water, provider at bedside, nurse brought in water for PO challenge, pt started to actively vomit, PRN given water held, pt now sleeping in bed comfortably
== END 2022-05-20 17:06 | disposition home or self-care (01) ==
PROVIDERS: Physician Assistant Medical; Emergency Provider Emergency Medicine; PCP Registered Nurse
DX: R06.02 Shortness of breath (principal); F41.0 Panic disorder [episodic paroxysmal anxiety]; R51.9 Headache, unspecified; M54.2 Cervicalgia; M54.6 Pain in thoracic spine; Z20.822 Contact with and (suspected) exposure to COVID-19; Z20.828 Contact with and (suspected) exposure to other viral communicable diseases; Z72.820 Sleep deprivation; Z79.899 Other long term (current) drug therapy
CPT/HCPCS: 36415; 70491; 71045; 71260; 74177; 80053; 80307; 81001; 82077; 82140; 82550; 82803; 83690; 83735; 84484; 85025; 87635; 87651; 93005; 96361; 96374; 96375; 99285; J2060; J2270; J2405; J2765; Q9967

== ENCOUNTER 2022-10-26 11:34 | Emergency (ER) | payer MEDICAID, SELFPAY ==
[2022-10-26 11:55] VITALS: BP 158/80; PULSE 100; O2SAT 100
[2022-10-26 11:59] VITALS: BP 193/85; PULSE 111; RESP 20; O2SAT 100; BMI 31.0
--- NOTE | 2022-10-26 12:21 | ECG_ITS ---
Test Reason : CP Blood Pressure : / mmHG Vent. Rate : 088 BPM Atrial Rate : 088 BPM P-R Int : 128 ms QRS Dur : 104 ms QT Int : 352 ms P-R-T Axes : 065 054 080 degrees QTc Int : 425 ms Normal sinus rhythm Normal ECG When compared with ECG of 20-MAY-2022 11:52, Heart rate has decreased Referred By: Tory Nieves Electronically Signed By:CODI WILLIAMSON
[2022-10-26] MEDS: ondansetron HCL 4 MG/2 ML VIAL IVPUSH (13:34)
[2022-10-26 13:39] VITALS: TEMP 36.7
--- NOTE | 2022-10-26 15:01 | ED.NAVMDI ---
HPI - Nausea/Vomiting/Diarrhea General Chief complaint: Nausea/Vomiting/Diarrhea Stated complaint: NAUSEA VOMITING Time Seen by Provider: 10/26/22 12:20 Source: patient and other (Fiancee) Mode of arrival: ambulatory Limitations: no limitations History of Present Illness HPI Narrative: 27-year-old male who presents emergency department for evaluation lightheadedness, dizziness, chest pain since 10:00. According to his fiancee, the patient had a bad reaction to his Trulicity shot last week. The patient had a Trulicity shot yesterday. This morning at 10:00, he developed a squeezing sensation in his chest. He states that the sensation is been constant is moderate to severe in intensity. Patient had associated nausea and vomiting. He denied fever, chills, rhinorrhea, sore throat. He states he has had an occasional nonproductive cough. Patient does have a history of anxiety and he states that he has been anxious since onset of his symptoms he has had uncontrolled shaking. The patient has been on Trulicity for 1 year but his dose was increased 1 month prior and since then he has been having difficulty after each injection. The patient has been having heartburn like symptoms and has been taking Pepto-Bismol daily. He states that when he vomited today, he was concerned that he had blood in his vomit which made him anxious. Related Data Previous Rx's Medication Instructions Recorded metoclopramide HCl 10 mg tablet 10 mg PO Q6H PRN nausea and 05/20/22 (Reglan) vomiting #10 tabs lorazepam 1 mg tablet (Ativan) 1 mg PO TID PRN anxiety #10 tabs 10/26/22 omeprazole 20 mg capsule,delayed 20 mg PO DAILY 30 days #30 caps 10/26/22 release ondansetron 4 mg disintegrating 4 mg PO Q6-8H PRN nausea and 10/26/22 tablet vomiting #14 tabs Allergies Allergy/AdvReac Type Severity Reaction Status Date / Time No Known Allergies Allergy Unverified 11/19/19 16:18 [No Known Allergies*] Review of Systems Review of Systems: Yes all other systems are reviewed and are negative [facility] Past Medical History [facility] Narrative: Past medical history: Diabetes mellitus, hypertension, anxiety. Social history: He denies tobacco use. He occasionally drinks alcohol. He smokes marijuana daily. Social History Social History Substance Use Type: Marijuana Advance Directives: No Advance Directives Information Provided: Yes Physical Exam Vital Signs: Vital Signs: Last Vital Signs Temp 99.3 F 10/26/22 15:32 Pulse 80 10/26/22 15:32 Resp 16 10/26/22 15:32 BP 146/76 H 10/26/22 15:32 Pulse Ox 98 10/26/22 15:32 O2 Del Method Room Air 10/26/22 15:32 BMI result Body Mass Index 31.0 Vital signs revealed elevated blood pressure of 146/76 otherwise unremarkable Exam: General: Awake, alert, appears anxious, defers to his fiancee to answer questions Head: Normocephalic, atraumatic EENT: PERRL, Lids normal, sclera normal, conjunctiva normal, nose normal , ears normal, throat without erythema or exudates Neck: Supple, no adenopathy, trachea midline and nontender Lung: breath sounds symmetric, no wheezing, rales or rhonchi Chest: symmetric movement, nontender Heart: regular rate and rhythm, normal S1, S2 no murmurs or rubs Abdomen: soft, non-tender, nondistended, normal bowel sounds Back: no vertebral tenderness, no CVAT Extremities: no deformities, moves all extremities symmetrically Skin: no rashes, no lesion, normal color and warmth Neuro: Awake, alert, oriented, normal speech, cranial nerves intact, moves all extremities symmetrically Psych: Pleasant, cooperative Medications Administered Discontinued Medications Generic Name Dose Route Start Last Admin Trade Name Freq PRN Reason Stop Dose Admin Sodium Chloride 1,000 mls @ 999 mls/hr 10/26/22 14:52 10/26/22 15:05 Ns IV 10/26/22 15:52 999 mls/hr .Q1H1M STA Administration Ketorolac Tromethamine 15 mg 10/26/22 14:44 10/26/22 15:03 Ketorolac Tromethamine 15 Mg/Ml Vial IVPUSH 10/26/22 14:45 15 mg ONCE STA Administration Lorazepam 1 mg 10/26/22 14:44 10/26/22 15:03 Lorazepam 2 Mg/Ml Vial IVPUSH 10/26/22 14:45 1 mg STAT STA Administration Ondansetron HCl 4 mg 10/26/22 12:20 10/26/22 13:34 Ondansetron Hcl 4 Mg/2 Ml Vial IVPUSH 10/26/22 12:21 4 mg ONCE ONE Administration Medical Decision Making Medical Decision Making [facility] Narrative: 27-year-old male who presents emergency department for evaluation of chest pain, lightheadedness, dizziness and anxiety. The patient has been on Trulicity for approximately 1 caren and receives the shot weekly. The patient's dose was increased 1 month prior. The patient had a Trulicity shot yesterday. This morning at 10:00, he developed a squeezing sensation in his chest, lightheadedness, dizziness and anxiety patient's vital signs initially revealed a very elevated blood pressure of 193/114 but this improved without treatment. The patient did appear to be anxious and tremulous otherwise exam was unremarkable. I ordered the following evaluation: CBC, CMP, lipase, PT/INR, PTT, high sensitive troponin I, EKG. Patient was treated with normal saline x1 L,, lactated Ringer's x1 L, Toradol 15 mg IV, lorazepam 1 mg IV, Zofran 4 mg IV 16:36: The patient's laboratory evaluation did reveal an elevated glucose. Patient had a normal high sensitive troponin I which is reassuring. Patient's 12 EKG was also unremarkable. Patient is feeling significantly better after the above treatment Patient's symptoms are most likely caused by an adverse reaction to the Trulicity injection which then triggered anxiety. Patient will be treated with Ativan 1 mg 3 times a day as needed for anxiety for the next several days, also prescribed Zofran ODT 4 mg Q 6-8 hours as needed for nausea and vomiting and Prilosec 20 mg daily for gastritis.. The patient will need to follow-up with his PCP next week to get on alternative treatment for his diabetes. Differential Diagnosis Differential Diagnoses: The differential diagnosis associated with the presentation includes Differential diagnosis includes was not limited to costochondritis, viral syndrome, myocardial infarction, myocardial ischemia, pneumonia, anxiety, adverse reaction to Trulicity Admission/Observation Consideration of admission/observation: Escalation of care including admission/observation considered Lab Data [facility] Lab Attestation statement: I reviewed the patient's lab results. My interpretation patient's laboratory evaluation is as follows: Mild anemia with an H&H of 12 and 24.9 with normal MCV of 86. Elevated glucose 300. Normal LFTs. High sensitive troponin I below detectable limits. Normal lipase. 10/26/22 15:30 10/26/22 15:30 Labs: Lab Results 10/26/22 10/26/22 10/26/22 Range/Units 15:30 15:30 15:30 WBC 10.0 (4.8-10.8) X10*3/uL RBC 4.06 L (4.60-5.80) X10*6/uL Hgb 12.6 L (14.0-18.0) g/dl Hct 34.9 L (42.0-52.0) % MCV 86.0 (80.0-98.0) fL MCH 31.0 (27.0-33.0) pg MCHC 36.1 H (31.0-36.0) g/dl RDW 11.7 (11.0-16.0) % Plt Count 186 D (160-400) X10*3/uL MPV 10.4 (9.4-12.4) fL Immature Gran % (Auto) 0.3 (0.0-0.4) % Neut % (Auto) 89.5 H (45-73) % Lymph % (Auto) 5.4 L (20-40) % Christian % (Auto) 4.6 (2-11) % Eos % (Auto) 0.0 (0-4) % Baso % (Auto) 0.2 (0-2) % Lymph # (Auto) 0.5 L (1.2-4.9) X10*3/uL Christian # (Auto) 0.5 (0.1-1.2) X10*3/uL Eos # (Auto) 0.0 (0.0-0.4) X10*3/uL Baso # (Auto) 0.0 (0.0-0.2) X10*3/uL Abs Immat Gran (auto) 0.03 (0.00-0.03) X10*3/uL Absolute Neuts (auto) 9.0 H (2.0-8.3) x10*3/uL Absolute Nucleated RBC 0.000 (0.0-0.012) X10*3/uL Nucleated RBC % (auto) 0.0 (0.0-0.2) /100WBC PT 11.9 (11.1-13.3) SEC INR 1.0 (0.9-1.1) APTT 29.3 (26.0-36.4) SEC Sodium 138 (135-145) mmol/L Potassium 4.0 (3.3-5.1) mmol/L Chloride 105 (96-108) mmol/L Carbon Dioxide 22 (22-29) mmol/L Anion Gap 15 (12-20) BUN 15 (9-16) mg/dL Creatinine 0.85 (0.5-1.4) mg/dL Estim Creat Clear Calc 137.0 Estimated GFR > 60 Random Glucose 300 H (60-115) mg/dL Calcium 9.5 (8.4-10.2) mg/dL Total Bilirubin 1.1 H (0.0-1.0) mg/dL AST 15 (5-37) U/L ALT 11 (0-40) U/L Alkaline Phosphatase 77 (39-117) U/L Troponin I High Sens (<3.5-35.0) ng/L Total Protein 6.7 (6.5-8.0) g/dL Albumin 4.1 (3.5-5.0) g/dL Lipase 16 (8-78) U/L // Range/Units 15:30 WBC (4.8-10.8) X10*3/uL RBC (4.60-5.80) X10*6/uL Hgb (14.0-18.0) g/dl Hct (42.0-52.0) % MCV (80.0-98.0) fL MCH (27.0-33.0) pg MCHC (31.0-36.0) g/dl RDW (11.0-16.0) % Plt Count (160-400) X10*3/uL MPV (9.4-12.4) fL Immature Gran % (Auto) (0.0-0.4) % Neut % (Auto) (45-73) % Lymph % (Auto) (20-40) % Christian % (Auto) (2-11) % Eos % (Auto) (0-4) % Baso % (Auto) (0-2) % Lymph # (Auto) (1.2-4.9) X10*3/uL Christian # (Auto) (0.1-1.2) X10*3/uL Eos # (Auto) (0.0-0.4) X10*3/uL Baso # (Auto) (0.0-0.2) X10*3/uL Abs Immat Gran (auto) (0.00-0.03) X10*3/uL Absolute Neuts (auto) (2.0-8.3) x10*3/uL Absolute Nucleated RBC (0.0-0.012) X10*3/uL Nucleated RBC % (auto) (0.0-0.2) /100WBC PT (11.1-13.3) SEC INR (0.9-1.1) APTT (26.0-36.4) SEC Sodium (135-145) mmol/L Potassium (3.3-5.1) mmol/L Chloride (96-108) mmol/L Carbon Dioxide (22-29) mmol/L Anion Gap (12-20) BUN (9-16) mg/dL Creatinine (0.5-1.4) mg/dL Estim Creat Clear Calc Estimated GFR Random Glucose (60-115) mg/dL Calcium (8.4-10.2) mg/dL Total Bilirubin (0.0-1.0) mg/dL AST (5-37) U/L ALT (0-40) U/L Alkaline Phosphatase (39-117) U/L Troponin I High Sens < 2.7 (<3.5-35.0) ng/L Total Protein (6.5-8.0) g/dL Albumin (3.5-5.0) g/dL Lipase (8-78) U/L Independent Interpretation I performed an independent interpretation of an: EKG Interpretation: My independent interpretation patient's 12 EKG done at 13:06 is as follows: Normal sinus rhythm rate of 88, normal RI interval, prolonged QRS of 104 milliseconds, normal QTC interval, no ST segment elevation, no ST segment depression, no T-wave abnormalities, no PACs, no PVCs this is a normal EKG. Prescription Management I considered prescription management with: Other (Anti-anxiety medications, anti-emetics) Chronic Conditions Patient?s care impacted by: Diabetes and Hypertension Discharge Plan Discharge Clinical Impression: Anxiety, Chest pain, Gastritis Adverse drug reaction Qualifiers: Encounter type: initial encounter Qualified Code(s): T50.905A - Adverse effect of unspecified drugs, medicaments and biological substances, initial encounter Vomiting Qualifiers: Vomiting type: unspecified Patient Disposition: Home, Self-Care Instructions: Gastritis (ED) Additional Instructions: You had an adverse reaction triggered by your Trulicity and this then triggered and anxiety reaction. You need to discuss an alternative treatment for your diabetes with your doctor. Take Ativan 1 mg pills, 1 pill every 6 hours as needed for anxiety. This medication will make you sleepy, do not drive or work while taking this medication. This medication can be addicting, if your concerned about addiction you can ask the pharmacist for less medications or do not get the prescription filled. Take Zofran ODT 4 mg pills, 1 pill dissolved in your mouth every 8 hours as needed for nausea and vomiting. Take Prilosec (omeprazole) 20 mg pills, 1 pill once a day for 1 month. This medication shuts off your acid production and lets the inflammation in your stomach and esophagus heal. Follow-up with your doctor in 2 days. Please return to the emergency department if your symptoms get worse or if you develop any symptoms that are concerning to you. Prescriptions: New omeprazole 20 mg capsule,delayed release(DR/EC) 20 mg PO DAILY 30 Days Qty: 30 0RF lorazepam [Ativan] 1 mg tablet 1 mg PO TID PRN (Reason: anxiety) Qty: 10 0RF Rx Instructions: Patient may request partial fill ondansetron 4 mg tablet,disintegrating 4 mg PO Q6-8H PRN (Reason: nausea and vomiting) Qty: 14 0RF No Action metoclopramide HCl [Reglan] 10 mg tablet 10 mg PO Q6H PRN (Reason: nausea and vomiting) Qty: 10 0RF
[2022-10-26] MEDS: LORazepam 2 MG/ML VIAL 1 MG IVPUSH (15:03)
[2022-10-26] MEDS: Ketorolac Tromethamine 15 MG/ML VIAL IVPUSH (15:03)
[2022-10-26] MEDS: 0.9 % Sodium Chloride 1,000 ML 999 ML IV (15:05)
[2022-10-26 15:32] VITALS: BP 146/76; PULSE 80; RESP 16; TEMP 37.4; O2SAT 98
[2022-10-26 15:33] LABS: MANUAL DIFF FLAG NO
--- NOTE | 2022-10-26 15:33 | MHC.EDTECH ---
THIS PCT ASSUMED CARE OF PT AT 1500 ,VITALS SIGN TAKEN AND BLOOD DRAWN AND SENT TO LAB ,PT RESTING QUIETLY IN BED .
[2022-10-26 15:35] LABS: Basophils Percent Auto 0.2 % (0-2); Hematocrit 34.9 % (42.0-52.0); Hemoglobin 12.6 g/dl (14.0-18.0); Imm Gran Abs Auto 0.03 X10*3/uL (0.00-0.03); Imm Gran Pct Auto 0.3 % (0.0-0.4); Lymphocytes Absolute Auto 0.5 X10*3/uL (1.2-4.9); Lymphocytes Percent Auto 5.4 % (20-40); Mean Corpuscular HGB Conc 36.1 g/dl (31.0-36.0); Mean Platelet Volume 10.4 fL (9.4-12.4); Monocytes Absolute Auto 0.5 X10*3/uL (0.1-1.2); Monocytes Percent Auto 4.6 % (2-11); Neutrophils Percent Auto 89.5 % (45-73); Platelet Count 186 X10*3/uL (160-400); Red Blood Count 4.06 X10*6/uL (4.60-5.80); Red Cell Distribution Width 11.7 % (11.0-16.0)
[2022-10-26 15:41] LABS: Prothrombin Time 11.9 SEC (11.1-13.3)
[2022-10-26 15:43] LABS: Partial Thromboplastin Time 29.3 SEC (26.0-36.4)
[2022-10-26 15:51] LABS: Alanine Aminotransferase 11 U/L (0-40); Albumin Level 4.1 g/dL (3.5-5.0); Alkaline Phosphatase 77 U/L (39-117); Anion Gap 15 (12-20); Aspartate Amino Transferase 15 U/L (5-37); Bilirubin Total 1.1 mg/dL (0.0-1.0); Blood Urea Nitrogen 15 mg/dL (9-16); Calcium 9.5 mg/dL (8.4-10.2); Carbon Dioxide 22 mmol/L (22-29); Chloride 105 mmol/L (96-108); Estimated Glomerular Filt Rate > 60; Glucose Random 300 mg/dL (60-115); Lipase 16 U/L (8-78); Sodium 138 mmol/L (135-145); Total Protein 6.7 g/dL (6.5-8.0)
[2022-10-26 16:12] LABS: Troponin-I High Sensitivity < 2.7 ng/L (<3.5-35.0)
== END 2022-10-26 17:09 | disposition home or self-care (01) ==
PROVIDERS: Emergency Provider Emergency Medicine Emergency Medical Services
DX: R07.89 Other chest pain (principal); R11.2 Nausea with vomiting, unspecified; F41.1 Generalized anxiety disorder; F43.0 Acute stress reaction; Z79.899 Other long term (current) drug therapy
CPT/HCPCS: 36415; 80053; 83690; 84484; 85025; 85610; 85730; 93005; 96374; 96375; 99284; J1885; J2060; J2405

== ENCOUNTER → 2023-02-15 12:55 | Outpatient (REF) | payer MEDICAID, SELFPAY ==
--- NOTE | 2023-02-15 12:58 | HM_ITS ---
* Total monitoring time 2 days. * Underlying rhythm is sinus. Average ventricular rate 92/Min. Range 74 to 171/Min. * About 21% of the time, rate > 100/Min. * Very rare ventricular ectopy. Minimal burden. * No significant pauses or AV blocks. * Patient marker correlates with sinus rhythm, sinus tachycardia. * Panic attack described in diary correlates with mild sinus tachycardia. MTDD
== END ==
LOC: HO.CARD 12:55
PROVIDERS: PCP Registered Nurse; Visit Provider Registered Nurse
DX: R00.0 Tachycardia, unspecified (principal)
CPT/HCPCS: 93225

== ENCOUNTER → 2023-02-15 12:58 | Outpatient (BNV) | payer MEDICAID, SELFPAY | PROVIDERS: PCP Registered Nurse; Visit Provider Internal Medicine | DX: R00.0 Tachycardia, unspecified (principal) | CPT/HCPCS: 93227 ==

== ENCOUNTER → 2023-06-24 13:06 | Outpatient (REF) | payer MEDICAID, SELFPAY ==
--- NOTE | 2023-06-24 13:09 | CA_ITS ---
Transthoracic Echocardiogram Patient (Last, First, Middle): Tristen Boateng, Gender: Male Date of : 1995 Age: 28 Procedure Date: 06/24/2023 Procedure Type: Transthoracic Echocardiogram Location: OP Height: 170.18 cm Weight: 97.07 kg BSA: 2.08 m2 Heart Rate: 81 bpm BP: 160 / 85 mmHg Rn [facility]: JIM Referring MD: Leanne [facility] [employer]ic Design Engineer: Jean-Pierre Lauren MD Symptoms: BI LAT LWER EXT EDEMA R60.0 Study Quality: Fair ECG Rhythm: Sinus Conclusions: - 1. Mildly reduced LV ejection fraction 45-50% with mild LVH 2. Normal cardiac valvular Doppler 3. Normal right atrial pressures 4. No gross pericardial effusion Findings Left Ventricle Normal left ventricular cavity size. There is mildly increased left ventricular wall thickness. The left ventricular systolic function is mildly decreased. The visually estimated ejection fraction is between 45-50%. Spectral Doppler is indicative of a normal filling pattern. Peak GLS is 13.7%, moderately reduced. Right Ventricle Normal right ventricular cavity size and systolic function. Atria The left atrium is normal in size. Interatrial shunt cannot be excluded. The right atrium is normal in size. Aortic Valve The aortic valve structure and function is likely normal. There is no aortic valve stenosis. There is no aortic valve regurgitation. Mitral Valve Likely normal mitral valve structure and function. There is trace mitral valve regurgitation. There is no mitral valve stenosis. Tricuspid Valve Normal tricuspid valve structure. Tricuspid regurgitation envelope is inadequate for calculation of right ventricular systolic pressure. Normal right atrial pressure. Great Vessels All visible segments of the aorta are normal in size. The pulmonary artery was not well visualized. Venous The inferior vena cava is normal in size and collapses greater than 50% with inspiration. Pericardium/Pleural There is no evidence of pericardial effusion. Prior Study Comparison No prior study available for comparison. Measurements 2D Linear Measurements IVSd: 1.34 0.6-0.9/0.6-1.0 cm LVIDd: 4.97 3.9-5.3/4.2-5.9 cm LVIDd Index: 2.39 2.4-3.2/2.2-3.1 cm/m2 LVIDs: 3.42 2.0-3.6 cm LVPWd: 1.48 0.7-1.1 cm LA Diam: 4.00 2.7-3.8/3.0-4.0 cm LAIDs Index: 1.92 1.5-2.3 cm/m2 LV Mass: 363.96 67-162/88-224 g LV Mass Index: 174.98 43-95/49-115 g/m2 LVOT Diam: 2.20 3.0+(-)1.3 cm 2D Systolic Function EF 4C: 46.90 >55% EF 2C: 56.20 >55% EF BiP: 48.20 >55% Mitral Valve MV Pk E: 0.91 MV PK A: 0.54 MV Decel Time: 130.00 E/A: 1.70 E'Lateral: 13.40 E'Medial: 10.10 E/E' Med: 9.00 E/E' Lat: 6.80 PHT: 38.00 MVA PHT: 5.79 Decel Lander: 7.01 Aortic Valve AoV Pk Tristian: 1.14 AoV Mn Tristian: 0.84 AoV VTI: 0.25 AoV Pk Grad: 5.00 Aov Mn Grad: 3.00 LUCIANO Cont.VTI: 3.01 LVOT LVOT Pk Tristian: 0.95 LVOT Mn Tristian: 0.67 LVOT VTI: 0.20 LVOT Pk Grad: 4.00 LVOT Mn Grad: 2.00 LVOT Diam: 2.20 LVOT Area: 3.80 Diastolic Function MV Pk E: 0.91 MV Pk A: 0.54 E/A: 1.70 E'Medial: 10.10 E/E' Med: 9.00 E' Laterial: 13.40 E/E' Lat: 6.80 Right Ventricle TAPSE (mm): 18.30 TVS' Tristian: 9.46 Tricuspid Valve RA Press: 3.00 Great Vessels Aorta Sinus of Valsalva: 3.50 2.0-3.5 cm Ao Asc: 3.20 2.1-3.4 cm Pulmonary Valve PV Pk Tristian: 1.02 Peak PV Grad: 4.00 Updated in Other Vendor System with Status of Final Jean-Pierre Lauren MD electronically signed on 06/25/2023 12:04:21 PM with status of Final
== END ==
LOC: HO.CARD 13:06
PROVIDERS: PCP Registered Nurse; Visit Provider Registered Nurse
DX: I10 Essential (primary) hypertension (principal); R60.0 Localized edema
CPT/HCPCS: 93306; 93356

== ENCOUNTER → 2023-06-24 13:09 | Outpatient (BNV) | payer MEDICAID, SELFPAY | PROVIDERS: PCP Registered Nurse; Visit Provider Internal Medicine Cardiovascular Disease | DX: I34.0 Nonrheumatic mitral (valve) insufficiency (principal); R93.1 Abnormal findings on diagnostic imaging of heart and coronary circulation | CPT/HCPCS: 93306; 93356 ==

== ENCOUNTER 2023-08-14 19:56 | Emergency (ER) | payer MEDICAID, SELFPAY ==
[2023-08-14 21:26] VITALS: BP 189/97; PULSE 95; RESP 16; TEMP 37.1; O2SAT 99; BMI 36.0
[2023-08-14 21:31] LABS: Glucose, Whole Blood 207 mg/dL (60-115)
[2023-08-14] MEDS: Ondansetron ODT 4 MG TAB.RAPDIS TRANSLINGU (22:19)
[2023-08-14 22:20] LABS: Basophils Percent Auto 0.3 % (0-2); Hematocrit 32.2 % (42.0-52.0); Hemoglobin 11.9 g/dl (14.0-18.0); Imm Gran Abs Auto 0.04 X10*3/uL (0.00-0.03); Imm Gran Pct Auto 0.3 % (0.0-0.4); Lymphocytes Absolute Auto 0.7 X10*3/uL (1.2-4.9); Lymphocytes Percent Auto 5.7 % (20-40); MANUAL DIFF FLAG SCAN; Mean Corpuscular Hemoglobin 30.4 pg (27.0-33.0); Mean Corpuscular Volume 82.1 fL (80.0-98.0); Mean Platelet Volume 9.7 fL (9.4-12.4); Monocytes Absolute Auto 0.2 X10*3/uL (0.1-1.2); Monocytes Percent Auto 1.5 % (2-11); Neutrophils Absolute Auto 11.4 x10*3/uL (2.0-8.3); Neutrophils Percent Auto 92.2 % (45-73); Platelet Count 218 X10*3/uL (160-400); Red Blood Count 3.92 X10*6/uL (4.60-5.80); Red Cell Distribution Width 12.3 % (11.0-16.0); SCAN SMEAR FLAG 1; White Blood Count 12.4 X10*3/uL (4.8-10.8)
[2023-08-14 22:34] LABS: Alanine Aminotransferase 15 U/L (0-40); Albumin Level 4.3 g/dL (3.5-5.0); Alkaline Phosphatase 88 U/L (39-117); Anion Gap 17 (12-20); Aspartate Amino Transferase 18 U/L (5-37); Bilirubin Total 1.3 mg/dL (0.0-1.0); Blood Urea Nitrogen 23 mg/dL (9-16); Carbon Dioxide 22 mmol/L (22-29); Chloride 103 mmol/L (96-108); Creatinine Clr Calc Pharmacy 88.8; Estimated Glomerular Filt Rate 60; Glucose Random 207 mg/dL (60-115); Lipase 9 U/L (8-78); Magnesium 1.7 mg/dL (1.6-2.6); Potassium 3.8 mmol/L (3.3-5.1); Sodium 138 mmol/L (135-145); Total Protein 7.4 g/dL (6.5-8.0)
[2023-08-14 22:46] LABS: SLIDE REVIEW VERIFIED
[2023-08-14 22:57] LABS: Influenza A PCR NEGATIVE (Negative); Influenza B PCR NEGATIVE (Negative); Resp Syncy Virus RNA Qual PCR NEGATIVE (Negative); SARS COV2 PCR INHOUSE NEGATIVE (Negative)
[2023-08-15 03:18] VITALS: BP 188/87; PULSE 97; RESP 14; TEMP 36.8; O2SAT 99
--- NOTE | 2023-08-15 04:27 | ED_ITS ---
HPI - Nausea/Vomiting/Diarrhea General Chief complaint: Nausea/Vomiting/Diarrhea Stated complaint: high blood sugar, has not eaten, type 2 diabetic Time Seen by Provider: 08/15/23 03:16 Source: patient Mode of arrival: ambulatory History of Present Illness ED Provider: Dr Shipman HPI Narrative: 28-year-old male who presents with vomiting, nausea and inability to hold anything down, endorses that he does smoke marijuana and states that this has happened previously, also reports epigastric discomfort and burning sensation within his chest. Otherwise no urinary symptoms, no diarrhea and no sick contacts. Related Data Previous Rx's ?Medication ?Instructions ?Recorded metoclopramide HCl 10 mg tablet 10 mg PO Q6H PRN nausea and 05/20/22 (Reglan) vomiting #10 tabs lorazepam 1 mg tablet (Ativan) 1 mg PO TID PRN anxiety #10 tabs 10/26/22 omeprazole 20 mg capsule,delayed 20 mg PO DAILY 30 days #30 caps 10/26/22 release ondansetron 4 mg disintegrating 4 mg PO Q6-8H PRN nausea and 10/26/22 tablet vomiting #14 tabs ondansetron 4 mg disintegrating 4 mg PO Q8H PRN nausea and 08/15/23 tablet vomiting #7 tabs sucralfate 100 mg/mL oral 10 ml PO BID #420 mL 08/15/23 suspension (Carafate) Allergies Allergy/AdvReac Type Severity Reaction Status Date / Time No Known Allergies Allergy Verified 08/14/23 21:28 [No Known Allergies*] Review of Systems 2 Review of Systems: Pertinent positives and negatives as stated in HPI [facility] Past Medical History Source: nursing notes reviewed Social History Social History Smoked in Last 30 Days: No Use of substances other than those prescribed or required for medical reasons: Yes Substance Use Type: Marijuana Advance Directives: No Advance Directives Information Provided: No Do you have a plan to hurt others: No Plan Physical Exam 2 Vital Signs: Vital Signs: Last Vital Signs Temp 98.3 F 08/15/23 03:18 Pulse 97 08/15/23 03:18 Resp 14 08/15/23 03:18 BP 178/88 H 08/15/23 04:28 Pulse Ox 99 08/15/23 03:18 O2 Del Method Room Air 08/15/23 03:18 BMI result Body Mass Index 36.0 VITAL SIGNS: Reviewed. GENERAL: Well developed, well nourished, in no acute distress. HEAD: Normocephalic/atraumatic EYES: PERRLA, EOMI EARS: Ext canals without abnormality NOSE: Nares patent bilateral OROPHARYNX: no oral lesions noted, posterior pharynx clear NECK: Supple, no adenopathy LUNGS: Normal breath sounds. No adventitious sounds or accessory muscle use. SpO2<99> CARDIOVASCULAR: Regular rate and rhythm without noted murmurs ABDOMEN: Soft, non-tender, non-distended with bowel sounds. MUSCULOSKELETAL: No tenderness, deformities, or effusions noted on gross inspection. EXTREMITIES: No cyanosis, clubbing or edema. SKIN: Inspection of the skin reveals no rashes NEUROLOGIC: Alert and oriented x 4. Strength and sensation to light touch were grossly intact x 4. Medications Administered Discontinued Medications Generic Name Dose Route Start Last Admin Trade Name Freq PRN Reason Stop Dose Admin Al Hydroxide/Mg Hydroxide 30 ml 08/15/23 03:50 08/15/23 04:28 Magnesium Hydrox/Alum Hydrox 30 Ml Oral.Susp PO 08/15/23 03:51 30 ml ONCE ONE Administration Amlodipine Besylate 5 mg 08/15/23 03:50 08/15/23 04:28 Amlodipine Besylate 5 Mg Tablet PO 08/15/23 03:51 5 mg ONCE ONE Administration Protocol Lidocaine HCl 10 ml 08/15/23 03:50 08/15/23 04:28 Lidocaine Hcl Viscous 2 % 15 Ml Solution MUCOUS MEM 08/15/23 03:51 10 ml ONCE ONE Administration Ondansetron HCl 4 mg 08/14/23 22:03 08/14/23 22:19 Ondansetron Odt 4 Mg Tab.Rapdis TRANSLINGU 08/14/23 22:04 4 mg ONCE ONE Administration Sucralfate 1 gm 08/15/23 04:32 08/15/23 04:56 Sucralfate Oral Suspension 1 Gm/10 Ml Oral.Susp PO 08/15/23 04:33 1 gm ONCE ONE Administration Medical Decision Making Medical Decision Making MDM Narrative: 28-year-old male with history and clinical presentation, DDX: Gastritis, pancreatitis and cholecystitis felt to be less likely, possible cannabis induced nausea and vomiting. Patient reports some improvement in symptoms. I reviewed all investigations and hematologic indices are significant for noninfectious leukocytosis with a stable normocytic anemia no thrombocytopenia. Patient is afebrile. Chemistry indices do not demonstrate an KARUNA and there is no electrolyte derangements and T bili is noted to be detectable at baseline otherwise no transaminitis. There is hyper glycemia without evidence of DKA or HHS. Viral testing is negative for influenza/RSV/COVID-19. Patient is feeling improved after having received the Zofran and GI cocktail. On re-evaluation patient continues to feel well, he has tolerated water, he does have some concerns about the possibility of gastroparesis and he was strongly encouraged to follow-up in the outpatient setting for full workup with his primary care doctor. I do not feel that this was an incident of gastroparesis as patient began experiencing nausea and vomiting prior to the epigastric discomfort. Differential Diagnosis Differential Diagnoses: The differential diagnosis associated with the presentation includes Please see the discussion above Admission/Observation Consideration of admission/observation: Escalation of care including admission/observation considered Please see the discussion above Lab Data MDM Lab Attestation statement: I reviewed the patient's lab results. Please see the discussion above 08/14/23 22:12 08/14/23 22:12 Labs: Lab Results 08/14/23 08/14/23 Range/Units 21:28 22:12 WBC 12.4 H (4.8-10.8) X10*3/uL RBC 3.92 L (4.60-5.80) X10*6/uL Hgb 11.9 L (14.0-18.0) g/dl Hct 32.2 L (42.0-52.0) % MCV 82.1 (80.0-98.0) fL MCH 30.4 (27.0-33.0) pg MCHC 37.0 H (31.0-36.0) g/dl RDW 12.3 (11.0-16.0) % Plt Count 218 (160-400) X10*3/uL MPV 9.7 (9.4-12.4) fL Immature Gran % (Auto) 0.3 (0.0-0.4) % Neut % (Auto) 92.2 H (45-73) % Lymph % (Auto) 5.7 L (20-40) % [place] % (Auto) 1.5 L (2-11) % Eos % (Auto) 0.0 (0-4) % Baso % (Auto) 0.3 (0-2) % Lymph # (Auto) 0.7 L (1.2-4.9) X10*3/uL [place] # (Auto) 0.2 (0.1-1.2) X10*3/uL Eos # (Auto) 0.0 (0.0-0.4) X10*3/uL Baso # (Auto) 0.0 (0.0-0.2) X10*3/uL Abs Immat Gran (auto) 0.04 H (0.00-0.03) X10*3/uL Absolute Neuts (auto) 11.4 H (2.0-8.3) x10*3/uL Absolute Nucleated RBC 0.000 (0.0-0.012) X10*3/uL Nucleated RBC % (auto) 0.0 (0.0-0.2) /100WBC Smear Tech's Comments VERIFIED Sodium 138 (135-145) mmol/L Potassium 3.8 (3.3-5.1) mmol/L Chloride 103 (96-108) mmol/L Carbon Dioxide 22 (22-29) mmol/L Anion Gap 17 (12-20) BUN 23 H (9-16) mg/dL Creatinine 1.40 (0.5-1.4) mg/dL Estim Creat Clear Calc 88.8 Estimated GFR 60 POC Glucose 207 H (60-115) mg/dL Random Glucose 207 H (60-115) mg/dL Calcium 10.0 (8.4-10.2) mg/dL Magnesium 1.7 (1.6-2.6) mg/dL Total Bilirubin 1.3 H (0.0-1.0) mg/dL AST 18 (5-37) U/L ALT 15 (0-40) U/L Alkaline Phosphatase 88 (39-117) U/L Total Protein 7.4 (6.5-8.0) g/dL Albumin 4.3 (3.5-5.0) g/dL Lipase 9 (8-78) U/L Influenza Type A (PCR) NEGATIVE (Negative) Influenza Type B (PCR) NEGATIVE (Negative) RSV RNA Qual (PCR) NEGATIVE (Negative) SARS-CoV-2 RNA (RT-PCR) NEGATIVE (Negative) External Record Review External record reviewed: Outpatient record, Prior outpatient labs and Prior outpatient radiology Chronic Conditions Patient?s care impacted by: Diabetes and Hypertension Critical Care Time Critical Care Time Critical Care Time: Yes Total Critical Care Time: 45 Attestation: I personally attest to this time spent taking care of the patient. Discharge Plan Discharge Clinical Impression: Epigastric pain, Cannabis hyperemesis syndrome concurrent with and due to cannabis dependence, Gastritis Patient Disposition: Home, Self-Care Instructions: Gastritis (ED), Diet for Stomach Ulcers and Gastritis (ED), Epigastric Pain (ED) Additional Instructions: 1. Resume all home medications as prescribed. 2. Please follow-up with your primary care doctor to discuss further evaluation for possible gastroparesis. Return to the ER for any worsening symptoms. Prescriptions: New ondansetron 4 mg tablet,disintegrating 4 mg PO Q8H PRN (Reason: nausea and vomiting) Qty: 7 0RF sucralfate [Carafate] 100 mg/mL suspension 10 ml PO BID Qty: 420 0RF No Action metoclopramide HCl [Reglan] 10 mg tablet 10 mg PO Q6H PRN (Reason: nausea and vomiting) Qty: 10 0RF omeprazole 20 mg capsule,delayed release(DR/EC) 20 mg PO DAILY 30 Days Qty: 30 0RF lorazepam [Ativan] 1 mg tablet 1 mg PO TID PRN (Reason: anxiety) Qty: 10 0RF Rx Instructions: Patient may request partial fill ondansetron 4 mg tablet,disintegrating 4 mg PO Q6-8H PRN (Reason: nausea and vomiting) Qty: 14 0RF Referrals: Leanne Alcazar, CARL [Primary Care Provider] - Print Language: Turkish
[2023-08-15 04:28] VITALS: BP 178/88
[2023-08-15] MEDS: Lidocaine HCl Viscous 2 % 15 ML SOLUTION 10 ML MUCOUS MEM (04:28)
[2023-08-15] MEDS: amLODIPine Besylate 5 MG TABLET PO (04:28)
[2023-08-15] MEDS: Magnesium Hydrox/Alum Hydrox 30 ML ORAL.SUSP PO (04:28)
--- NOTE | 2023-08-15 04:35 | PC.NURSE ---
Pt medicated per may. Plan of care ongoing. Pts so at bedside.
[2023-08-15] MEDS: Sucralfate Oral Suspension 1 GM/10 ML ORAL.SUSP PO (04:56)
--- NOTE | 2023-08-15 04:59 | PC.NURSE ---
Pt medicated per may. Po challenged with water. Tolerated well. Plan of care ongoing.
[2023-08-15] MEDS: Metoclopramide HCl 10 MG TABLET PO (05:54)
[2023-08-15 05:55] VITALS: BP 163/71; PULSE 91; RESP 16; TEMP 36.8; O2SAT 99
[2023-08-15 06:01] VITALS: BP 163/71; PULSE 91; RESP 16; TEMP 36.8; O2SAT 99
== END 2023-08-15 06:08 | disposition home or self-care (01) ==
PROVIDERS: Emergency Provider Student in an Organized Health Care Education/Training Program; PCP Registered Nurse
DX: R11.2 Nausea with vomiting, unspecified (principal); F12.20 Cannabis dependence, uncomplicated; R10.13 Epigastric pain; K29.70 Gastritis, unspecified, without bleeding
CPT/HCPCS: 0241U; 80053; 82947; 83690; 83735; 85025; 99283; 99284

== ENCOUNTER 2023-10-29 12:31 | Observation (INO) | payer MEDICAID, SELFPAY ==
[2023-10-29] VITALS (14 sets, daily range): BP systolic 175–212; BP diastolic 84–106; PULSE 80–100; RESP 12–24; TEMP 36.6–37.5; O2SAT 94–99; BMI 33.5
--- NOTE | 2023-10-29 12:44 | ECG_ITS ---
Test Reason : chest pain Blood Pressure : / mmHG Vent. Rate : 091 BPM Atrial Rate : 091 BPM P-R Int : 122 ms QRS Dur : 094 ms QT Int : 368 ms P-R-T Axes : 061 042 067 degrees QTc Int : 452 ms Normal sinus rhythm Normal ECG When compared with ECG of 26-OCT-2022 13:06, No significant change was found Referred By: Generic ED Physician Electronically Signed By:CODI WILLIAMSON
--- NOTE | 2023-10-29 12:45 | PC.NURSE ---
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
--- NOTE | 2023-10-29 12:54 | PC.NURSE ---
20G to L forearm. Tolerated well. Good blood return.
--- NOTE | 2023-10-29 12:55 | PC.NURSE ---
Labs drawn and sent as ordered. EKG completed and reviewed by Rg Flaherty MD
--- NOTE | 2023-10-29 12:56 | ED_ITS ---
HPI - Chest Pain General Chief Complaint: Chest Pain Stated Complaint: HIGH BP 206/102,INT SUBST CP PER EMS Time Seen by Provider: 10/29/23 12:49 Source: patient and EMS Mode of arrival: EMS Limitations: no limitations History of Present Illness ED Provider: Dr. Aziza Flaherty HPI narrative: Patient comes to the emergency room complaining of anxiety, hypertension. Patient states that he takes blood pressure medication and is compliant with his meds. Patient started having chest pain with anxiety, called EMS who gave him 324 mg of aspirin and 0.5 mg of sublingual nitroglycerin. Patient denies any URI symptoms. Admits that he is feeling very anxious. Patient also states that he has chest pain that radiates up towards his brainstem Related Data Previous Rx's ?Medication ?Instructions ?Recorded metoclopramide HCl 10 mg tablet 10 mg PO Q6H PRN nausea and 05/20/22 (Reglan) vomiting #10 tabs lorazepam 1 mg tablet (Ativan) 1 mg PO TID PRN anxiety #10 tabs 10/26/22 omeprazole 20 mg capsule,delayed 20 mg PO DAILY 30 days #30 caps 10/26/22 release ondansetron 4 mg disintegrating 4 mg PO Q6-8H PRN nausea and 10/26/22 tablet vomiting #14 tabs ondansetron 4 mg disintegrating 4 mg PO Q8H PRN nausea and 08/15/23 tablet vomiting #7 tabs sucralfate 100 mg/mL oral 10 ml PO BID #420 mL 08/15/23 suspension (Carafate) amlodipine 10 mg tablet 10 mg PO DAILY #90 tabs 10/29/23 olmesartan 40 mg tablet 40 mg PO DAILY #90 tabs 10/29/23 Allergies Allergy/AdvReac Type Severity Reaction Status Date / Time No Known Allergies Allergy Verified 10/29/23 12:42 [No Known Allergies*] Review of Systems 2 Review of Systems: Constitutional : No Weight loss, No Fever, No Chills, No Night Sweats, No Fatigue, No Malaise ENT/Mouth : No Hearing loss, No Ear Pain, No Nasal Congestion, No Sinus Pain, No Hoarseness, No sore throat, No Rhinorrhea, No Swallowing Difficulty Eyes: No Eye Pain, No Swelling, No Redness, No Foreign Body, No Discharge, No Vision Changes Cardiovascular : Complaining of Chest Pain, No SOB, No Dyspnea on Exertion, No Orthopnea, No Edema, No Palpitations Respiratory : No Cough, No Sputum, No Wheezing, No Smoke Exposure, No Dyspnea Gastrointestinal : No Nausea, No Vomiting, No Diarrhea, No Constipation, No abdominal Pain, No Hematochezia, No Melena Genitourinary : no irregular bleeding, No Dysuria, No Urinary Frequency, No Hematuria, No Urinary Incontinence, No Urgency, No Flank Pain, No Urinary Flow Changes, No Hesitancy Musculoskeletal : No joint pain, No Myalgias, No Joint Swelling Skin : No Skin Lesions, No rash Neuro : No Weakness, No Numbness, No Paresthesias, No Loss of Consciousness, No Dizziness, No Headache Psych : Complaining of feeling severely anxious, No Depression, No SI/HI/AH/VH, No Social Issues, Heme/Lymph: No Bruising, No Bleeding,No Lymphadenopathy Endocrine : No Polyuria, No Polydipsia, No Temperature Intolerance [facility] Past Medical History Medical History (Updated 10/29/23 @ 16:30 by Aziza Flaherty MD) Cannabis hyperemesis syndrome concurrent with and due to cannabis dependence Hypertension Social History Social History Smoked in Last 30 Days: No Use of substances other than those prescribed or required for medical reasons: No Substance Use Type: Marijuana Advance Directives: No Advance Directives Information Provided: Yes Do you have a plan to hurt others: No Plan Physical Exam 2 Vital Signs: Vital Signs: Last Vital Signs Temp 98.6 F 10/29/23 19:22 Pulse 86 10/29/23 19:57 Resp 20 10/29/23 19:57 BP 184/91 H 10/29/23 19:57 Pulse Ox 95 10/29/23 19:57 O2 Del Method Room Air 10/29/23 19:57 BMI result Body Mass Index 33.5 Const: Other: Appearance: Alert. Oriented X3. No acute distress. Eyes: Pupils equal, round and reactive to light. ENT: Pharynx normal. Neck: Normal inspection. Neck supple. No lymph nodes noted. No crepitus CVS: Normal heart rate and rhythm. Pulses normal. Normal S1 and S2 Respiratory: No respiratory distress. Breath sounds normal. No Wheezing. No rales Abdomen: Soft and nontender. No rigidity. No distention. Skin: Skin warm and dry. Normal skin color. Normal skin turgor. Extremities: No lower extremity edema. No Lacerations. No Rash Neuro: Oriented X 3. No motor deficit. No sensory deficit. Moving all extremities. No slurred speech. CN 2 through 12 grossly intact Psych: calm, cooperative, normal affect Course Course Course Narrative: All of patient's labs and imaging pending Patient is notoriously anxious, patient received p.o. Ativan Medications Administered Discontinued Medications Generic Name Dose Route Start Last Admin Trade Name Gregoryq PRN Reason Stop Dose Admin Sodium Chloride 1,000 mls @ 999 mls/hr 10/29/23 13:43 10/29/23 15:17 Ns IVCONT 10/29/23 14:43 Infused .Q1H1M ONE Infusion Labetalol HCl 100 mg 10/29/23 16:24 10/29/23 16:48 Labetalol Hcl 100 Mg Tablet PO 10/29/23 16:25 100 mg ONCE ONE Administration Protocol Labetalol HCl 10 mg 10/29/23 17:55 10/29/23 18:04 Labetalol Hcl 100 Mg/20 Ml Vial IVPUSH 10/29/23 17:56 10 mg ONCE ONE Administration Labetalol HCl 10 mg 10/29/23 19:06 10/29/23 19:29 Labetalol Hcl 100 Mg/20 Ml Vial IVPUSH 10/29/23 19:07 10 mg ONCE ONE Administration Lorazepam 1 mg 10/29/23 12:55 10/29/23 13:15 Lorazepam 1 Mg Tablet PO 10/29/23 12:56 1 mg ONCE ONE Administration Losartan Potassium 50 mg 10/29/23 15:35 10/29/23 15:50 Losartan Potassium 50 Mg Tablet PO 10/29/23 15:36 50 mg ONCE ONE Administration Protocol Medical Decision Making Medical Decision Making MDM Narrative: -my interpretation of EKG: Normal sinus rhythm, heart rate 91, no ST segment depression or elevation, no T-wave inversion, QTC 452 -my interpretation of labs, hematology at baseline, chemistry shows a bumped in creatinine to 1.6. Troponin negative. After IV fluids, patient's creatinine was rechecked, now basically normal, 1.42. Troponin 2 is negative -overall patient is feeling better. Still a bit anxious. -patient received 50 mg of losartan. Blood pressure did not improve. Patient now getting labetalol, p.o. 100 mg, current blood pressure 186/92, heart rate 88 -patient's blood pressure did not decrease much after p.o. labetalol. Patient then received 10 mg of labetalol IV, twice. Patient's blood pressure improved to 178 systolic. -I discussed with the patient that it would be best to admit him and his blood pressure controlled. I discussed the patient with Dr Pritchard, who accepted the patient. However, the patient states that he does not have anyone to baby-sit his child and would like to be discharged home. Patient aware that his blood pressure is significantly elevated. Patient was given an additional dose of amlodipine 10 mg p.o. -at this time, patient denies chest pain or shortness of breath, no arm pain either -20:10. Patient had already been discharged, still remain in his room, patient change his mind, patient is willing to stay. Differential Diagnosis Differential Diagnoses: The differential diagnosis associated with the presentation includes (Alexander control hypertension, hypertensive urgency, hypertensive emergency) Admission/Observation Consideration of admission/observation: Escalation of care including admission/observation considered (Admission was recommended, patient would like to be discharged home) Lab Data MDM Lab Attestation statement: I reviewed the patient's lab results. 10/29/23 12:54 10/29/23 15:21 Labs: Lab Results 10/29/23 10/29/23 10/29/23 Range/Units 12:54 14:00 15:21 WBC 9.1 (4.8-10.8) X10*3/uL RBC 3.87 L (4.60-5.80) X10*6/uL Hgb 11.6 L (14.0-18.0) g/dl Hct 31.9 L (42.0-52.0) % MCV 82.4 (80.0-98.0) fL MCH 30.0 (27.0-33.0) pg MCHC 36.4 H (31.0-36.0) g/dl RDW 12.3 (11.0-16.0) % Plt Count 235 (160-400) X10*3/uL MPV 9.6 (9.4-12.4) fL Immature Gran % (Auto) 0.2 (0.0-0.4) % Neut % (Auto) 69.6 (45-73) % Lymph % (Auto) 19.4 L (20-40) % [place] % (Auto) 9.3 (2-11) % Eos % (Auto) 1.1 (0-4) % Baso % (Auto) 0.4 (0-2) % Lymph # (Auto) 1.8 (1.2-4.9) X10*3/uL [place] # (Auto) 0.8 (0.1-1.2) X10*3/uL Eos # (Auto) 0.1 (0.0-0.4) X10*3/uL Baso # (Auto) 0.0 (0.0-0.2) X10*3/uL Abs Immat Gran (auto) 0.02 (0.00-0.03) X10*3/uL Absolute Neuts (auto) 6.3 (2.0-8.3) x10*3/uL Absolute Nucleated RBC 0.000 (0.0-0.012) X10*3/uL Nucleated RBC % (auto) 0.0 (0.0-0.2) /100WBC Sodium 139 139 (135-145) mmol/L Potassium 3.7 3.6 (3.3-5.1) mmol/L Chloride 105 108 (96-108) mmol/L Carbon Dioxide 22 24 (22-29) mmol/L Anion Gap 16 11 L (12-20) BUN 20 H 19 H (9-16) mg/dL Creatinine 1.60 H 1.42 H (0.5-1.4) mg/dL Estim Creat Clear Calc 74.9 84.4 Estimated GFR 51 59 POC Glucose 129 H (60-115) mg/dL Random Glucose 148 H 105 (60-115) mg/dL Calcium 9.4 8.5 D (8.4-10.2) mg/dL Troponin I High Sens 3.9 4.2 (<3.5-35.0) ng/L Urine Opiates Screen (Not Detect) Ur Buprenorphine Scrn (Not Detect) ng/mL Ur Oxycodone Screen (Not Detect) ng/mL Urine Methadone Screen (Not Detect) ng/mL Urine Fentanyl Screen (Not Detect) Ur Barbiturates Screen (Not Detect) Ur Phencyclidine Scrn (Not Detect) Ur Amphetamines Screen (Not Detect) U Benzodiazepines Scrn (Not Detect) Urine Cocaine Screen (Not Detect) U Marijuana (THC) Screen (Not Detect) Ethyl Alcohol < 10 mg/dL 10/29/23 Range/Units 16:47 WBC (4.8-10.8) X10*3/uL RBC (4.60-5.80) X10*6/uL Hgb (14.0-18.0) g/dl Hct (42.0-52.0) % MCV (80.0-98.0) fL MCH (27.0-33.0) pg MCHC (31.0-36.0) g/dl RDW (11.0-16.0) % Plt Count (160-400) X10*3/uL MPV (9.4-12.4) fL Immature Gran % (Auto) (0.0-0.4) % Neut % (Auto) (45-73) % Lymph % (Auto) (20-40) % [place] % (Auto) (2-11) % Eos % (Auto) (0-4) % Baso % (Auto) (0-2) % Lymph # (Auto) (1.2-4.9) X10*3/uL [place] # (Auto) (0.1-1.2) X10*3/uL Eos # (Auto) (0.0-0.4) X10*3/uL Baso # (Auto) (0.0-0.2) X10*3/uL Abs Immat Gran (auto) (0.00-0.03) X10*3/uL Absolute Neuts (auto) (2.0-8.3) x10*3/uL Absolute Nucleated RBC (0.0-0.012) X10*3/uL Nucleated RBC % (auto) (0.0-0.2) /100WBC Sodium (135-145) mmol/L Potassium (3.3-5.1) mmol/L Chloride (96-108) mmol/L Carbon Dioxide (22-29) mmol/L Anion Gap (12-20) BUN (9-16) mg/dL Creatinine (0.5-1.4) mg/dL Estim Creat Clear Calc Estimated GFR POC Glucose (60-115) mg/dL Random Glucose (60-115) mg/dL Calcium (8.4-10.2) mg/dL Troponin I High Sens (<3.5-35.0) ng/L Urine Opiates Screen Not Detected (Not Detect) Ur Buprenorphine Scrn Not Detected (Not Detect) ng/mL Ur Oxycodone Screen Not Detected (Not Detect) ng/mL Urine Methadone Screen Not Detected (Not Detect) ng/mL Urine Fentanyl Screen Not Detected (Not Detect) Ur Barbiturates Screen Not Detected (Not Detect) Ur Phencyclidine Scrn Not Detected (Not Detect) Ur Amphetamines Screen Not Detected (Not Detect) U Benzodiazepines Scrn Not Detected (Not Detect) Urine Cocaine Screen Not Detected (Not Detect) U Marijuana (THC) Screen POSITIVE H (Not Detect) Ethyl Alcohol mg/dL Independent Interpretation I performed an independent interpretation of an: EKG Interpretation: Interpretation of EKG: Normal sinus rhythm, heart rate 91, no ST segment depression or elevation, no T-wave inversion, QTC 452 Critical Care Time Critical Care Time Critical Care Time: Yes Total Critical Care Time: 75 Attestation: I have personally provided critical care time. Time includes review of lab data, radiology results, discussion with consultants, and monitoring for potential decompensation. Intervention performed as documented. Discharge Plan Discharge Clinical Impression: Uncontrolled hypertension, KARUNA (acute kidney injury), Anxiety Patient Disposition: Admitted As Inpatient Instructions: Acute Kidney Injury (DC), Chronic Hypertension (ED), Anxiety (ED) Additional Instructions: Ideally, you should be admitted to the hospital for blood pressure control. Please increase your dose of olmesartan to 40 mg daily and add amlodipine 10 mg. Please follow-up with your primary care physician tomorrow. If you have any worsening or new symptoms, please return to the emergency room or call 911 Prescriptions: New olmesartan 40 mg tablet 40 mg PO DAILY Qty: 90 0RF amlodipine 10 mg tablet 10 mg PO DAILY Qty: 90 0RF No Action metoclopramide HCl [Reglan] 10 mg tablet 10 mg PO Q6H PRN (Reason: nausea and vomiting) Qty: 10 0RF omeprazole 20 mg capsule,delayed release(DR/EC) 20 mg PO DAILY 30 Days Qty: 30 0RF lorazepam [Ativan] 1 mg tablet 1 mg PO TID PRN (Reason: anxiety) Qty: 10 0RF Rx Instructions: Patient may request partial fill ondansetron 4 mg tablet,disintegrating 4 mg PO Q6-8H PRN (Reason: nausea and vomiting) Qty: 14 0RF ondansetron 4 mg tablet,disintegrating 4 mg PO Q8H PRN (Reason: nausea and vomiting) Qty: 7 0RF sucralfate [Carafate] 100 mg/mL suspension 10 ml PO BID Qty: 420 0RF Print Language: Romanian
[2023-10-29 12:59] LABS: MANUAL DIFF FLAG NO
[2023-10-29 13:01] LABS: Basophils Percent Auto 0.4 % (0-2); Eosinophils Absolute Auto 0.1 X10*3/uL (0.0-0.4); Eosinophils Percent Auto 1.1 % (0-4); Hematocrit 31.9 % (42.0-52.0); Hemoglobin 11.6 g/dl (14.0-18.0); Imm Gran Abs Auto 0.02 X10*3/uL (0.00-0.03); Imm Gran Pct Auto 0.2 % (0.0-0.4); Lymphocytes Absolute Auto 1.8 X10*3/uL (1.2-4.9); Lymphocytes Percent Auto 19.4 % (20-40); Mean Corpuscular HGB Conc 36.4 g/dl (31.0-36.0); Mean Corpuscular Volume 82.4 fL (80.0-98.0); Mean Platelet Volume 9.6 fL (9.4-12.4); Monocytes Absolute Auto 0.8 X10*3/uL (0.1-1.2); Monocytes Percent Auto 9.3 % (2-11); Neutrophils Absolute Auto 6.3 x10*3/uL (2.0-8.3); Neutrophils Percent Auto 69.6 % (45-73); Platelet Count 235 X10*3/uL (160-400); Red Blood Count 3.87 X10*6/uL (4.60-5.80); Red Cell Distribution Width 12.3 % (11.0-16.0); White Blood Count 9.1 X10*3/uL (4.8-10.8)
--- NOTE | 2023-10-29 13:02 | MHC.EDTECH ---
Call to lab, spoke with tech in chemistry and asked if ethanol lab order could be added on to previous green gel tube sent down. Per lab okay to add on and they will print out the label.
[2023-10-29] MEDS: LORazepam 1 MG TABLET PO (13:15)
[2023-10-29 13:21] LABS: Anion Gap 16 (12-20); Blood Urea Nitrogen 20 mg/dL (9-16); Calcium 9.4 mg/dL (8.4-10.2); Carbon Dioxide 22 mmol/L (22-29); Chloride 105 mmol/L (96-108); Creatinine Clr Calc Pharmacy 74.9; Estimated Glomerular Filt Rate 51; Ethanol < 10 mg/dL; Glucose Random 148 mg/dL (60-115); Potassium 3.7 mmol/L (3.3-5.1); Sodium 139 mmol/L (135-145)
[2023-10-29 13:27] LABS: Troponin-I High Sensitivity 3.9 ng/L (<3.5-35.0)
[2023-10-29 14:05] LABS: Glucose, Whole Blood 129 mg/dL (60-115)
[2023-10-29] MEDS: 0.9 % Sodium Chloride 1,000 ML 999 ML IVCONT (14:12)
--- NOTE | 2023-10-29 15:27 | MHC.EDTECH ---
While drawing blood this tech asking patient again for a urine sample. Patient stated he didnt feel like he needed to go. I explained that we needed a very small amount. At patient request this tech removed blood pressure cuff and lowered bedside rail so that patient could stand to urinate if needed.
[2023-10-29 15:43] LABS: Anion Gap 11 (12-20); Blood Urea Nitrogen 19 mg/dL (9-16); Calcium 8.5 mg/dL (8.4-10.2); Carbon Dioxide 24 mmol/L (22-29); Chloride 108 mmol/L (96-108); Creatinine Clr Calc Pharmacy 84.4; Estimated Glomerular Filt Rate 59; Glucose Random 105 mg/dL (60-115); Potassium 3.6 mmol/L (3.3-5.1); Sodium 139 mmol/L (135-145)
[2023-10-29] MEDS: Losartan Potassium 50 MG TABLET PO (15:50)
[2023-10-29 15:53] LABS: Troponin-I High Sensitivity 4.2 ng/L (<3.5-35.0)
[2023-10-29] MEDS: Labetalol HCL 100 MG TABLET PO (16:48)
[2023-10-29 17:04] LABS: Amphetamine Screen Urine Not Detected (Not Detect); Barbiturates, Urine Not Detected (Not Detect); Benzodiazepines Screen Urine Not Detected (Not Detect); Buprenorphine Scr Not Detected (Not Detect); Cannabinoid Screen Urine POSITIVE (Not Detect); Cocaine Screen Urine Not Detected (Not Detect); Fentanyl, urine Not Detected (Not Detect); Methadone Screen, Urine Not Detected (Not Detect); Opiate Screen Urine Not Detected (Not Detect); Oxycodone Screen Urine Not Detected (Not Detect); Phencyclidine Screen Urine Not Detected (Not Detect)
[2023-10-29] MEDS: Labetalol HCL 100 MG/20 ML VIAL 10 MG IVPUSH ×2 (18:04→19:29)
--- NOTE | 2023-10-29 19:37 | PC.NURSE ---
this rn assumed care of pt, pt a&ox4, respirations even and unlabored. pt noted to be hypertensive at this time. pt medicated per may. dr. glover aware. pt normal sinus on tele 84-85bpm.
--- NOTE | 2023-10-29 19:59 | PC.NURSE ---
aware of pt blood pressure at this time, no new orders.
--- NOTE | 2023-10-29 20:13 | PM.IMHP ---
History of Present Illness Date of Service: 10/29/23 Chief Complaint: Elevated BP This is a 28-year-old male with pertinent history of mood disorder, hypertension, insulin-dependent diabetes mellitus who presents to the emergency department for evaluation of elevated blood pressure. Patient states he found that his blood pressure was significantly elevated with systolic greater than 200 at home and decided to come to the ER. States he is compliant with his home blood pressure medications. Initially had right-sided chest discomfort but it has resolved. Endorses anxiety. No palpitations or shortness of breath. No fever, chills, abdominal pain, changes in urinary or bowel habits. In the emergency department, blood pressure controlled with IV labetalol. Review of Systems Constitutional: Constitutional: Reports no additional constitutional complaints Respiratory: Respiratory: Reports no additional respiratory complaints Gastrointestinal: Gastrointestinal: Reports no additional gastrointestinal complaints Genitourinary: Genitourinary: Reports no additional male genitourinary complaints [facility] Medical History Cannabis hyperemesis syndrome concurrent with and due to cannabis dependence Hypertension Pertinent family history: No family history of early CAD Social History Smoked in Last 30 Days: No Use of substances other than those prescribed or required for medical reasons: No Substance Use Type: Marijuana Advance Directives: No Advance Directives Information Provided: Yes Do you have a plan to hurt others: No Plan Meds Allergies Allergy/AdvReac Type Severity Reaction Status Date / Time No Known Allergies Allergy Verified 10/29/23 12:42 [No Known Allergies*] Home Medications ?Medication ?Instructions ?Recorded ?Confirmed ?Last Taken ?Type empagliflozin 10 mg tablet 10 mg PO DAILY 10/29/23 Unknown History (Jardiance) insulin glargine 100 unit/mL (3 20 unit subcut QPM 10/29/23 Unknown History mL) subcutaneous pen (Lantus Solostar U-100 Insulin) Physical Exam Vital Signs and Narrative: Vital Signs: Last Vital Signs Temp 98.6 F 10/29/23 19:22 Pulse 86 10/29/23 19:57 Resp 20 10/29/23 19:57 BP 184/91 H 10/29/23 19:57 Pulse Ox 95 10/29/23 19:57 O2 Del Method Room Air 10/29/23 19:57 BMI result Body Mass Index 33.5 Middle-aged male lying in bed in no distress Neck supple, no JVD Regular rate and rhythm, S1-S2 heard Regular breath sounds bilaterally, no wheezing or crackles appreciated Abdomen soft nontender, no guarding, no rigidity Patient is awake, alert and oriented to self, place, time and person ; no focal motor deficit Psych: Normal mood No pedal edema Results Labs 10/29/23 12:54 10/29/23 15:21 Labs: Laboratory Results - last 24 hr 10/29/23 10/29/23 10/29/23 12:54 14:00 15:21 MCV 82.4 MCH 30.0 MCHC 36.4 H RDW 12.3 Plt Count 235 MPV 9.6 Immature Gran % (Auto) 0.2 Neut % (Auto) 69.6 Lymph % (Auto) 19.4 L [place] % (Auto) 9.3 Eos % (Auto) 1.1 Baso % (Auto) 0.4 Lymph # (Auto) 1.8 [place] # (Auto) 0.8 Eos # (Auto) 0.1 Baso # (Auto) 0.0 Abs Immat Gran (auto) 0.02 Absolute Neuts (auto) 6.3 Absolute Nucleated RBC 0.000 Nucleated RBC % (auto) 0.0 Anion Gap 16 11 L Estim Creat Clear Calc 74.9 84.4 Estimated GFR 51 59 POC Glucose 129 H Random Glucose 148 H 105 Calcium 9.4 8.5 D Troponin I High Sens 3.9 4.2 Urine Opiates Screen Ur Buprenorphine Scrn Ur Oxycodone Screen Urine Methadone Screen Urine Fentanyl Screen Ur Barbiturates Screen Ur Phencyclidine Scrn Ur Amphetamines Screen U Benzodiazepines Scrn Urine Cocaine Screen U Marijuana (THC) Screen Ethyl Alcohol < 10 10/29/23 16:47 MCV MCH MCHC RDW Plt Count MPV Immature Gran % (Auto) Neut % (Auto) Lymph % (Auto) [place] % (Auto) Eos % (Auto) Baso % (Auto) Lymph # (Auto) [place] # (Auto) Eos # (Auto) Baso # (Auto) Abs Immat Gran (auto) Absolute Neuts (auto) Absolute Nucleated RBC Nucleated RBC % (auto) Anion Gap Estim Creat Clear Calc Estimated GFR POC Glucose Random Glucose Calcium Troponin I High Sens Urine Opiates Screen Not Detected Ur Buprenorphine Scrn Not Detected Ur Oxycodone Screen Not Detected Urine Methadone Screen Not Detected Urine Fentanyl Screen Not Detected Ur Barbiturates Screen Not Detected Ur Phencyclidine Scrn Not Detected Ur Amphetamines Screen Not Detected U Benzodiazepines Scrn Not Detected Urine Cocaine Screen Not Detected U Marijuana (THC) Screen POSITIVE H Ethyl Alcohol Assessment and Plan (1) Uncontrolled hypertension: Status: Acute Plan This is a 28-year-old male with pertinent history of mood disorder, hypertension, insulin-dependent diabetes mellitus who presents to the emergency department for evaluation of elevated blood pressure. #. Hypertensive urgency: Will admit patient for observation with cardiac monitoring. Blood pressure appropriately lowered in the ER. Add amlodipine to patient's ARB. Continue to monitor and titrate antihypertensives #. Insulin-dependent diabetes mellitus: Continue basal plus insulin regimen #. Mood disorder: Continue home mood stabilizers #. Elevated creatinine: Likely CKD in the setting of uncontrolled blood pressure Med rec pending DVT prophylaxis: Lovenox Full code Quality Stroke Does the patient have a stroke diagnosis?: No VTE Prior VTE?: No VTE Risk Level:: Medical - moderate - high VTE Device Contraindication: Treatment Not Indicated VTE Drug Contraindication: N/A - Med Ordered
--- NOTE | 2023-10-29 20:47 | PHA.MEDREC ---
Addendum entered by Forest Daly [facility] 10/29/23 20:55: med rec reviewed Original Note: Pharmacy Consult ? Medication Reconciliation Pharmacy has completed the medication reconciliation. Confirmed medications with patient. Patient confirmed he is taking Lantus Solostar 20units at bedtime and he confirmed he last took that last night. He states he has Ondansentran 4mg still at home for when he is feeling nauseous. He was also taking a Hydroxizine 25mg tab 2 daily as needed for anxiety but states he has not taken that since 10/23 due to him thinking hes now having reactions to it. He states he took the rest of his regular medications this morning at 0600.
[2023-10-29] MEDS: amLODIPine Besylate 10 MG TABLET PO (20:51)
[2023-10-29] MEDS: Enoxaparin Sodium 40 MG/0.4 ML SYRINGE SUBCUT (20:52)
--- NOTE | 2023-10-29 20:53 | PC.NURSE ---
pt medicated per mar, tolerated well with water,.
[2023-10-29 21:11] LABS: Glucose, Whole Blood 131 mg/dL (60-115)
[2023-10-30] VITALS (11 sets, daily range): BP systolic 174–198; BP diastolic 78–107; PULSE 90–102; RESP 18–23; TEMP 36.2–37.2; O2SAT 96–99
--- NOTE | 2023-10-30 | ECG_ITS ---
Test Reason : chest pain Blood Pressure : / mmHG Vent. Rate : 109 BPM Atrial Rate : 109 BPM P-R Int : 128 ms QRS Dur : 104 ms QT Int : 356 ms P-R-T Axes : 066 053 068 degrees QTc Int : 479 ms Sinus tachycardia Otherwise normal ECG When compared with ECG of 29-OCT-2023 12:47, No significant change was found Referred By: Taras Aldana Electronically Signed By:CODI WILLIAMSON
[2023-10-30] MEDS: LORazepam 2 MG/ML VIAL 1 MG IVPUSH (00:06)
[2023-10-30] MEDS: ondansetron HCL 4 MG/2 ML VIAL IVPUSH ×3 (00:06→16:09)
[2023-10-30] MEDS: 0.9 % Sodium Chloride Flush 3 ML SYRINGE IVFLUSH ×3 (00:08→16:13)
[2023-10-30] MEDS: Melatonin 3 MG TABLET 6 MG PO ×2 (00:15→22:47)
--- NOTE | 2023-10-30 05:21 | PC.NURSE ---
Admission note:Patient admitted from the ED with elevated BP: (182/98, P=84), hands tremors around 2149 on 10/29/23. Patient oriented to unit routine, bed control, call light, tv, tel, bathroom etc. Patient verbalized understanding and found later to have s/s od a panic attack and dry hives. Dr Pritchard made aware. Patient medicated with 1 mg iv lorazepam, 4 mg iv zofran and 6 mg po melatonin with good effects. Safety precautions in place. We'll continue to monitor.
[2023-10-30 06:52] LABS: Hematocrit 28.9 % (42.0-52.0); Hemoglobin 10.5 g/dl (14.0-18.0); Mean Corpuscular HGB Conc 36.3 g/dl (31.0-36.0); Mean Corpuscular Hemoglobin 30.4 pg (27.0-33.0); Mean Corpuscular Volume 83.8 fL (80.0-98.0); Mean Platelet Volume 9.6 fL (9.4-12.4); Platelet Count 188 X10*3/uL (160-400); Red Blood Count 3.45 X10*6/uL (4.60-5.80); Red Cell Distribution Width 12.4 % (11.0-16.0); White Blood Count 6.3 X10*3/uL (4.8-10.8)
[2023-10-30 07:15] LABS: Anion Gap 13 (12-20); Blood Urea Nitrogen 20 mg/dL (9-16); Calcium 8.8 mg/dL (8.4-10.2); Carbon Dioxide 22 mmol/L (22-29); Chloride 108 mmol/L (96-108); Creatinine Clr Calc Pharmacy 87.5; Estimated Glomerular Filt Rate > 60; Glucose Random 103 mg/dL (60-115); Potassium 3.7 mmol/L (3.3-5.1); Sodium 139 mmol/L (135-145)
[2023-10-30] MEDS: amLODIPine Besylate 5 MG TABLET PO ×2 (07:26→07:45)
[2023-10-30] MEDS: Morphine Sulfate 4 MG/ML CARTRIDGE 3 MG IVPUSH ×2 (07:44→12:08)
[2023-10-30] MEDS: Butalb/Acetamin/Caff 50/325/40 TABLET 1 TAB PO ×2 (07:45→12:09)
[2023-10-30 07:57] LABS: Estimated Average Glucose 117 mg/dL; Hemoglobin A1c % 5.7 % (<6.0)
[2023-10-30 08:02] LABS: Glucose, Whole Blood 107 mg/dL (60-115)
[2023-10-30] MEDS: Empagliflozin 10 MG TABLET PO (09:27)
--- NOTE | 2023-10-30 10:24 | MHC.CM.PN ---
[place] 10/30/23, Pt lives with and child, he is independent, no home health services. For DME he has diabetic supplies. HCP is his , Melinda, form to be completed here and added to chart. Transportation at [place], is . DCP: home, self care. CM will follow for DC needs.
[2023-10-30 11:20] LABS: Glucose, Whole Blood 162 mg/dL (60-115)
[2023-10-30] MEDS: Insulin Lispro 100 UNIT/ML 3 ML VIAL SUBCUT (11:47)
--- NOTE | 2023-10-30 11:56 | HO.PM.IMPN ---
Subjective Subjective Date of Service: 10/30/23 Interval History: c/o TOLENTINO; BP elevated no chest pain Review of Systems Review of Systems: Yes all other systems are reviewed and are negative Physical Exam Vital Signs: Vital Signs: Last Vital Signs Temp 98.6 F 10/30/23 10:47 Pulse 95 10/30/23 10:47 Resp 18 10/30/23 10:47 BP 198/98 H 10/30/23 10:47 Pulse Ox 96 10/30/23 10:47 O2 Del Method Room Air 10/30/23 10:47 BMI result Body Mass Index 33.5 Gen: in no acute distress HEENT: sclera anicteric, moist mucus membranes Neck: supple Lungs: clear to auscultation bilaterally Heart: regular rate and rhythm, no murmurs Abd: soft, non-tender, non-distended Ext: no edema Skin: warm/well-perfused Neuro: alert and oriented x3, no focal findings Psych: appropriate affect Objective Data Active Medications Acetaminophen (Acetaminophen 325 Mg Tablet) 650 mg PO Q6H PRN PRN Reason: Pain, Mild (Pain Scale 1-3), fever or headache Acetaminophen/Butalbital/Caffeine (Butalb/Acetamin/Caff 50/325/40 Tablet) 1 tab PO ONCE ONE Stop: 10/30/23 11:49 Amlodipine Besylate (Amlodipine Besylate 10 Mg Tablet) 10 mg PO DAILY [facility]; Protocol Last Admin: 10/30/23 09:15 Dose: Not Given Documented By: TAMMY Non-Admin Reason: hold per Calcium Carbonate (Calcium Carbonate 750 Mg Tab.Chew) 750 mg PO Q4H PRN PRN Reason: Heartburn Carvedilol (Carvedilol 3.125 Mg Tablet) 3.125 mg PO BID [facility]; Protocol Empagliflozin (Empagliflozin 10 Mg Tablet) 10 mg PO DAILY [facility] Last Admin: 10/30/23 09:27 Dose: 10 mg Documented By: TAMMY Enoxaparin Sodium (Enoxaparin Sodium 40 Mg/0.4 Ml Syringe) 40 mg SUBCUT Q24H [facility] Last Admin: 10/29/23 20:52 Dose: 40 mg Documented By: DAVEY Glucose (Glucose Gel 15 Gm Gel..Gram.) 15 gm PO Q15M PRN; Protocol PRN Reason: per Hypoglycemia Standing Ord. Hydralazine HCl (Hydralazine Hcl 20 Mg/Ml Vial) 5 mg IVPUSH ONCE ONE; Protocol Stop: 10/30/23 11:49 Hydroxyzine HCl (Hydroxyzine Hcl 50 Mg Tablet) 50 mg PO DAILY PRN PRN Reason: Anxiety Dextrose (D10) 250 mls @ 750 mls/hr IV Q15M PRN; Protocol PRN Reason: per Hypoglycemia Standing Ord. Insulin Glargine (Insulin Glargine,Hum.Rec.Anlog 100 Unit/Ml 10 Ml Vial) 20 unit SUBCUT BEDTIME PRIYANKA Insulin Human Lispro (Insulin Lispro 100 Unit/Ml 3 Ml Vial) 0 unit SUBCUT QIDACHS [facility]; Protocol Last Admin: 10/30/23 11:47 Dose: 2 unit Documented By: TAMMY Magnesium Hydroxide (Milk Of Magnesia 30 Ml Oral.Susp) 30 ml PO DAILY PRN PRN Reason: Constipation Melatonin (Melatonin 3 Mg Tablet) 6 mg PO BEDTIME PRN PRN Reason: Insomnia Last Admin: 10/30/23 00:15 Dose: 6 mg Documented By: LORENZO Morphine Sulfate (Morphine Sulfate 4 Mg/Ml Cartridge) 3 mg IVPUSH ONCE ONE; Protocol Stop: 10/30/23 11:49 Ondansetron HCl (Ondansetron Hcl 4 Mg/2 Ml Vial) 4 mg IVPUSH Q8H PRN PRN Reason: Nausea and Vomiting Last Admin: 10/30/23 07:54 Dose: 4 mg Documented By: TAMMY Sodium Chloride (0.9 % Sodium Chloride Flush 3 Ml Syringe) 3 ml IVFSH [facility] Last Admin: 10/30/23 07:51 Dose: 3 ml Documented By: TAMMY Labs 10/30/23 06:40 10/30/23 06:40 Labs: Laboratory Results - last 24 hr 10/29/23 10/29/23 10/29/23 12:54 14:00 15:21 MCV 82.4 MCH 30.0 MCHC 36.4 H RDW 12.3 Plt Count 235 MPV 9.6 Immature Gran % (Auto) 0.2 Neut % (Auto) 69.6 Lymph % (Auto) 19.4 L [place] % (Auto) 9.3 Eos % (Auto) 1.1 Baso % (Auto) 0.4 Lymph # (Auto) 1.8 [place] # (Auto) 0.8 Eos # (Auto) 0.1 Baso # (Auto) 0.0 Abs Immat Gran (auto) 0.02 Absolute Neuts (auto) 6.3 Absolute Nucleated RBC 0.000 Nucleated RBC % (auto) 0.0 Anion Gap 16 11 L Estim Creat Clear Calc 74.9 84.4 Estimated GFR 51 59 POC Glucose 129 H Random Glucose 148 H 105 Estimat Average Glucose Hemoglobin A1c % Calcium 9.4 8.5 D Troponin I High Sens 3.9 4.2 Urine Opiates Screen Ur Buprenorphine Scrn Ur Oxycodone Screen Urine Methadone Screen Urine Fentanyl Screen Ur Barbiturates Screen Ur Phencyclidine Scrn Ur Amphetamines Screen U Benzodiazepines Scrn Urine Cocaine Screen U Marijuana (THC) Screen Ethyl Alcohol < 10 10/29/23 10/29/23 10/30/23 16:47 21:07 06:40 MCV 83.8 MCH 30.4 MCHC 36.3 H RDW 12.4 Plt Count 188 MPV 9.6 Immature Gran % (Auto) Neut % (Auto) Lymph % (Auto) [place] % (Auto) Eos % (Auto) Baso % (Auto) Lymph # (Auto) [place] # (Auto) Eos # (Auto) Baso # (Auto) Abs Immat Gran (auto) Absolute Neuts (auto) Absolute Nucleated RBC 0.000 Nucleated RBC % (auto) 0.0 Anion Gap 13 Estim Creat Clear Calc 87.5 Estimated GFR > 60 POC Glucose 131 H Random Glucose 103 Estimat Average Glucose 117 Hemoglobin A1c % 5.7 Calcium 8.8 Troponin I High Sens Urine Opiates Screen Not Detected Ur Buprenorphine Scrn Not Detected Ur Oxycodone Screen Not Detected Urine Methadone Screen Not Detected Urine Fentanyl Screen Not Detected Ur Barbiturates Screen Not Detected Ur Phencyclidine Scrn Not Detected Ur Amphetamines Screen Not Detected U Benzodiazepines Scrn Not Detected Urine Cocaine Screen Not Detected U Marijuana (THC) Screen POSITIVE H Ethyl Alcohol 10/30/23 10/30/23 07:00 11:17 MCV MCH MCHC RDW Plt Count MPV Immature Gran % (Auto) Neut % (Auto) Lymph % (Auto) [place] % (Auto) Eos % (Auto) Baso % (Auto) Lymph # (Auto) [place] # (Auto) Eos # (Auto) Baso # (Auto) Abs Immat Gran (auto) Absolute Neuts (auto) Absolute Nucleated RBC Nucleated RBC % (auto) Anion Gap Estim Creat Clear Calc Estimated GFR POC Glucose 107 162 H Random Glucose Estimat Average Glucose Hemoglobin A1c % Calcium Troponin I High Sens Urine Opiates Screen Ur Buprenorphine Scrn Ur Oxycodone Screen Urine Methadone Screen Urine Fentanyl Screen Ur Barbiturates Screen Ur Phencyclidine Scrn Ur Amphetamines Screen U Benzodiazepines Scrn Urine Cocaine Screen U Marijuana (THC) Screen Ethyl Alcohol Assessment and Plan (1) Uncontrolled hypertension: Status: Acute Plan d2 28yo M with HTN, DM2, mood disorder presenting with TOLENTINO + admitted for HTN urgency HTN urgency - increase amlodipine, add carvedilol renal insufficiency - ?baseline; SCr improving; continue to monitor + hold ARB TOLENTINO - prn Fioricet chronic issues: DM2 - well-controlled with A1c 5.7; continue basal-bolus insulin + empagliflozin mood disorder- hydroxyzine VTE ppx- enoxaparin dispo- eventual home In my clinical judgment, the patient requires continued inpatient hospitalization for the following reasons: severe TOLENTINO, HTN uncontrolled Total time managing care of this patient today: 35 minutes. Quality Stroke Does the patient have a stroke diagnosis?: No VTE Prior VTE?: No VTE Risk Level:: Medical - moderate - high VTE Device Contraindication: Treatment Not Indicated VTE Drug Contraindication: N/A - Med Ordered
[2023-10-30] MEDS: hydrALAZINE HCl 20 MG/ML VIAL 5 MG IVPUSH (12:08)
[2023-10-30] MEDS: carvediloL 3.125 MG TABLET PO ×2 (12:08→20:06)
[2023-10-30 15:17] LABS: Glucose, Whole Blood 80 mg/dL (60-115)
[2023-10-30] MEDS: Morphine Sulfate 4 MG/ML CARTRIDGE 3 MG IM (16:01)
[2023-10-30 16:35] LABS: Troponin-I High Sensitivity 4.4 ng/L (<3.5-35.0)
[2023-10-30 18:45] LABS: Troponin-I High Sensitivity 6.6 ng/L (<3.5-35.0)
[2023-10-30] MEDS: Acetaminophen 325 MG TABLET 650 MG PO (20:05)
[2023-10-30] MEDS: hydrOXYzine HCL 50 MG TABLET PO (20:06)
[2023-10-30] MEDS: Enoxaparin Sodium 40 MG/0.4 ML SYRINGE SUBCUT (20:07)
[2023-10-30 21:01] LABS: Glucose, Whole Blood 126 mg/dL (60-115)
[2023-10-30] MEDS: Insulin Glargine,Hum.rec.anlog 100 UNIT/ML 10 ML VIAL 20 UNIT SUBCUT (22:45)
[2023-10-31] MEDS: 0.9 % Sodium Chloride Flush 3 ML SYRINGE IVFLUSH (00:14)
[2023-10-31 02:33] VITALS: BP 160/92; PULSE 77
[2023-10-31 04:00] VITALS: BP 161/83; PULSE 84; RESP 18; TEMP 36.6; O2SAT 97
[2023-10-31 07:05] VITALS: BP 177/92; PULSE 80; RESP 18; TEMP 36.2; O2SAT 99
[2023-10-31 07:31] LABS: Glucose, Whole Blood 97 mg/dL (60-115)
[2023-10-31] MEDS: amLODIPine Besylate 10 MG TABLET PO (08:32)
[2023-10-31] MEDS: carvediloL 6.25 MG TABLET PO (08:32)
[2023-10-31] MEDS: Empagliflozin 10 MG TABLET PO (08:32)
[2023-10-31] MEDS: Morphine Sulfate 4 MG/ML CARTRIDGE 3 MG IM (08:32)
[2023-10-31 09:14] LABS: Anion Gap 11 (12-20); Blood Urea Nitrogen 21 mg/dL (9-16); Calcium 9.3 mg/dL (8.4-10.2); Carbon Dioxide 27 mmol/L (22-29); Chloride 105 mmol/L (96-108); Creatinine Clr Calc Pharmacy 79.4; Estimated Glomerular Filt Rate 55; Glucose Random 100 mg/dL (60-115); Potassium 3.7 mmol/L (3.3-5.1); Sodium 139 mmol/L (135-145)
[2023-10-31 10:59] VITALS: BP 174/94; PULSE 86; RESP 18; TEMP 36.2; O2SAT 97
--- NOTE | 2023-10-31 11:03 | PM.DS ---
DS: Providers Provider Date of Service: 10/31/23 Date of admission: 10/29/23 20:12 Date of discharge: 10/31/23 Primary care physician: CARL Gibbons DS: Diagnosis Discharge Diagnosis (1) Uncontrolled hypertension: Status: Acute (2) Chronic kidney disease, stage 2 (mild): Status: Acute DS: Summary Hospital Course Hospital Course: From the history and physical by the admitting hospitalist, Irais Pritchard MD, 10/29/23: This is a 28-year-old male with pertinent history of mood disorder, hypertension, insulin-dependent diabetes mellitus who presents to the emergency department for evaluation of elevated blood pressure. Patient states he found that his blood pressure was significantly elevated with systolic greater than 200 at home and decided to come to the ER. States he is compliant with his home blood pressure medications. Initially had right-sided chest discomfort but it has resolved. Endorses anxiety. No palpitations or shortness of breath. No fever, chills, abdominal pain, changes in urinary or bowel habits. In the emergency department, blood pressure controlled with IV labetalol. 28yo M with HTN, DM2, and mood disorder presenting with TOLENTINO + admitted to the telemetry unit for HTN urgency for which he was started on amlodipine plus carvedilol. He had mild renal insufficiency which may be chronic; olmesartan was discontinued and he should repeat BMP in 1 week. He was discharged home with instructions to follow up with his PCP in 1-2 weeks. Time Attestation Discharge Coordination Time (in mins): 35 Quality: Safe Use of Opioids Does Pt have an Active Cancer Diagnosis on the Problem List?: No Quality: Stroke Does the patient have a stroke diagnosis?: No Physical Exam Vital Signs: Vital Signs: Last Vital Signs Temp 97.2 F 10/31/23 10:59 Pulse 86 10/31/23 10:59 Resp 18 10/31/23 10:59 BP 174/94 H 10/31/23 10:59 Pulse Ox 97 10/31/23 10:59 O2 Del Method Room Air 10/31/23 10:59 BMI result Body Mass Index 33.5 Gen: in no acute distress HEENT: sclera anicteric, moist mucus membranes Neck: supple Lungs: clear to auscultation bilaterally Heart: regular rate and rhythm, no murmurs Abd: soft, non-tender, non-distended Ext: no edema Skin: warm/well-perfused Neuro: alert and oriented x3, no focal findings Psych: appropriate affect DS: Data Data Completed and Pending Completed studies during hospitalization [Text1]: Laboratory Results WBC 6.3 X10*3/uL (4.8-10.8) 10/30/23 06:40 RBC 3.45 X10*6/uL (4.60-5.80) L 10/30/23 06:40 Hgb 10.5 g/dl (14.0-18.0) L 10/30/23 06:40 Hct 28.9 % (42.0-52.0) L 10/30/23 06:40 MCV 83.8 fL (80.0-98.0) 10/30/23 06:40 MCH 30.4 pg (27.0-33.0) 10/30/23 06:40 MCHC 36.3 g/dl (31.0-36.0) H 10/30/23 06:40 RDW 12.4 % (11.0-16.0) 10/30/23 06:40 Plt Count 188 X10*3/uL (160-400) 10/30/23 06:40 MPV 9.6 fL (9.4-12.4) 10/30/23 06:40 Immature Gran % (Auto) 0.2 % (0.0-0.4) 10/29/23 12:54 Neut % (Auto) 69.6 % (45-73) 10/29/23 12:54 Lymph % (Auto) 19.4 % (20-40) L 10/29/23 12:54 [place] % (Auto) 9.3 % (2-11) 10/29/23 12:54 Eos % (Auto) 1.1 % (0-4) 10/29/23 12:54 Baso % (Auto) 0.4 % (0-2) 10/29/23 12:54 Lymph # (Auto) 1.8 X10*3/uL (1.2-4.9) 10/29/23 12:54 [place] # (Auto) 0.8 X10*3/uL (0.1-1.2) 10/29/23 12:54 Eos # (Auto) 0.1 X10*3/uL (0.0-0.4) 10/29/23 12:54 Baso # (Auto) 0.0 X10*3/uL (0.0-0.2) 10/29/23 12:54 Abs Immat Gran (auto) 0.02 X10*3/uL (0.00-0.03) 10/29/23 12:54 Absolute Neuts (auto) 6.3 x10*3/uL (2.0-8.3) 10/29/23 12:54 Absolute Nucleated RBC 0.000 X10*3/uL (0.0-0.012) 10/30/23 06:40 Nucleated RBC % (auto) 0.0 /100WBC (0.0-0.2) 10/30/23 06:40 Sodium 139 mmol/L (135-145) 10/31/23 08:43 Potassium 3.7 mmol/L (3.3-5.1) 10/31/23 08:43 Chloride 105 mmol/L (96-108) 10/31/23 08:43 Carbon Dioxide 27 mmol/L (22-29) 10/31/23 08:43 Anion Gap 11 (12-20) L 10/31/23 08:43 BUN 21 mg/dL (9-16) H 10/31/23 08:43 Creatinine 1.51 mg/dL (0.5-1.4) H 10/31/23 08:43 Estim Creat Clear Calc 79.4 10/31/23 08:43 Estimated GFR 55 10/31/23 08:43 POC Glucose 97 mg/dL (60-115) 10/31/23 07:07 Random Glucose 100 mg/dL (60-115) 10/31/23 08:43 Estimat Average Glucose 117 mg/dL 10/30/23 06:40 Hemoglobin A1c % 5.7 % (<6.0) 10/30/23 06:40 Calcium 9.3 mg/dL (8.4-10.2) 10/31/23 08:43 Troponin I High Sens 6.6 ng/L (<3.5-35.0) 10/30/23 18:19 Urine Opiates Screen Not Detected (Not Detect) 10/29/23 16:47 Ur Buprenorphine Scrn Not Detected ng/mL (Not Detect) 10/29/23 16:47 Ur Oxycodone Screen Not Detected ng/mL (Not Detect) 10/29/23 16:47 Urine Methadone Screen Not Detected ng/mL (Not Detect) 10/29/23 16:47 Urine Fentanyl Screen Not Detected (Not Detect) 10/29/23 16:47 Ur Barbiturates Screen Not Detected (Not Detect) 10/29/23 16:47 Ur Phencyclidine Scrn Not Detected (Not Detect) 10/29/23 16:47 Ur Amphetamines Screen Not Detected (Not Detect) 10/29/23 16:47 U Benzodiazepines Scrn Not Detected (Not Detect) 10/29/23 16:47 Urine Cocaine Screen Not Detected (Not Detect) 10/29/23 16:47 U Marijuana (THC) Screen POSITIVE (Not Detect) H 10/29/23 16:47 Ethyl Alcohol < 10 mg/dL 10/29/23 12:54 Discharge Plan Discharge Patient Disposition: Home, Self-Care Discharge Diagnosis: uncontrolled hypertension suspected chronic kidney disease stage 2 Referrals: Leanne Alcazar, [facility] [Primary Care Provider] - 1 Week Discharge Medications: New carvedilol 6.25 mg Tablet 6.25 mg PO BID Qty: 60 0RF Protocol: Hold for SBP/HR < HOLD for SBP < : 90 HOLD for HR < : 60 amlodipine 10 mg Tablet 10 mg PO DAILY Qty: 30 0RF Protocol: Hold for SBP< HOLD for SBP < : 90 Continued ondansetron 4 mg tablet,disintegrating 4 mg PO Q6-8H PRN (Reason: nausea and vomiting) Qty: 14 0RF insulin glargine [Lantus Solostar U-100 Insulin] 100 unit/mL (3 mL) insulin pen 20 unit subcut BEDTIME Jardiance 10 mg tablet 10 mg PO DAILY hydroxyzine HCl 25 mg tablet 50 mg PO DAILY PRN (Reason: Anxiety) Excedrin Migraine 250-250-65 mg Tablet 1 tab PO DAILY PRN (Reason: Migraine Headache) Discharge Orders: Discharge Order (Routine); Ordered 10/31/23 Ordered By: Taras Aldana Diet: Diabetic diet Activity on Discharge: As tolerated Stand Alone Forms: Patient Portal Discharge page Print Language: Surinamese Other Ambulatory Orders: Basic Metabolic Panel (Routine) Timeframe: 1 Week Facility: [facility] - Location: Laboratory Ordered By: Taras Aldana Care Plan Goals: cardiovascular health Health Concerns: uncontrolled hypertension suspected chronic kidney disease stage 2 Plan of Treatment: stop olmesartan take amlodipine 10 mg once daily PLUS carvedilol 6.25 mg twice daily follow up with your primary care doctor in 1 week and repeat BMP then Mediterranean diet Please follow up with your primary care doctor within 1 week. Return to the hospital if you experience recurrent or worsening symptoms. Assessment: See Discharge Summary. Patient Instructions: Chronic Hypertension (ED), Anxiety (ED), Mediterranean Diet (DC)
--- NOTE | 2023-10-31 11:04 | MHC.CM.PN ---
Pt has been medically cleared for DC. He will go home via family transport, plan is self care.
[2023-10-31 11:27] LABS: Glucose, Whole Blood 101 mg/dL (60-115)
== END 2023-10-31 13:30 | disposition home or self-care (01) ==
LOC: HO.ED 20:10 → HO.EDOVER 20:19 → HO.IMC 20:37
PROVIDERS: Admitting Provider Student in an Organized Health Care Education/Training Program; Emergency Provider Emergency Medicine; PCP Registered Nurse; Visit Provider Family Medicine
DX: I16.0 Hypertensive urgency (principal); N28.9 Disorder of kidney and ureter, unspecified; I10 Essential (primary) hypertension; E11.9 Type 2 diabetes mellitus without complications; R07.9 Chest pain, unspecified; R51.9 Headache, unspecified; F41.9 Anxiety disorder, unspecified; F39 Unspecified mood [affective] disorder; Z79.4 Long term (current) use of insulin; Z79.899 Other long term (current) drug therapy
CPT/HCPCS: 36415; 80048; 80307; 82947; 83036; 84484; 85025; 85027; 93005; 96361; 96372; 96374; 96375; 96376; 99222; 99285; J0360; J1650; J1920; J2060; J2270; J2405

== ENCOUNTER → 2023-10-29 13:09 | Outpatient (BNV) | payer MEDICAID, SELFPAY | PROVIDERS: Emergency Provider Emergency Medicine; PCP Registered Nurse; Visit Provider Student in an Organized Health Care Education/Training Program | DX: I12.9 Hypertensive chronic kidney disease with stage 1 through stage 4 chronic kidney disease, or unspecified chronic kidney disease (principal); N18.2 Chronic kidney disease, stage 2 (mild) | CPT/HCPCS: 99222; 99232; 99239 ==

== ENCOUNTER 2023-11-29 14:48 | Outpatient (AMB) | payer MEDICAID, SELFPAY ==
--- NOTE | 2023-11-29 13:42 | HO.NEPHOV_ITS ---
Vital Signs 11/29/23 14:49 11/29/23 15:10 Height 5 ft 7 in Weight 223 lb BMI 34.9 BP 148/89 H 140/86 H Blood Pressure Location Lt brachial Position Sitting Pulse 77 Pulse Source Pulse Oximeter Pulse Oximetry (%) 99 Oxygen Delivery Method Room Air Intake Visit Reasons: KARUNA/ Type 2 DM with hyperglycemia/ Conf Parts Counter Associate Required: No Accompanied by: Self / Same As Patient Allergies No Known Allergies [No Known Allergies*] Allergy (Verified 11/29/23 14:52) HPI Comments Details: 28 y/o male here for new patient visit referred by PCP for KARUNA medical history of primary HTN, DMII (diagnosed as a teenager, uncontrolled until last year or two per pt), obesity, anxiety. former daily cigar smoker, quit 1 year ago. Quit drinking alcohol 1 year ago (~1-2 beers daily prior to that). Daily marijuana smoker. 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 He is not sure about diabetic retinopathy but does see an eye doctor. Creatinine: 10/2022 0.85 08/14/23 1.40 10/29/23 1.60 10/30/23 1.37 10/31/[address] abd/pelvis- unremarkable renal findings. *of note, pt also had protein and blood in urine on UA from May 2022 pt was hospitalized on 10/31/23 at [facility] with uncontrolled HTN and chest pain, ACS eval was negative. KARUNA, olmesartan was held. currently prescribed amlodipine 10mg daily and carvedilol 6.25mg BID high blood pressure had been improving per pt, was in 180s for some time- notes panic attacks can often worsen his blood pressures lost 100lbs over about 5 years, gained a lot of it back in last year or so. family history: sister passed from lupus 2 years ago. Other siblings are healthy he thinks. father has diabetes and high blood pressure. mother has prediabetes. pt's son kowasaki disease when he was born NSAIDs are rare but he does take them on occasion take for headaches. does note constant pressure on his chest, reports this has improved since hospital visit but mild version is persisting no dyspnea no abdominal pain no pain with urination swelling in his legs- compression socks are helpful - pt reports since starting amlodipine [facility] Medical History (Updated 11/29/23 @ 15:21 by Myla Fraire DNP, ACCOUNT SUPPORT REP-BC) ADHD Generalized anxiety disorder Type 2 diabetes mellitus Cannabis hyperemesis syndrome concurrent with and due to cannabis dependence Hypertension Surgical History (Updated 11/29/23 @ 14:52 by Nelda Butler A) History of eye surgery (~06/2022) Social History Household Members: Significant Other and Children Housing: Apartment Do you presently have visiting nurse or other home services: No Patient Tobacco Use Status: Never used Tobacco e-Cigarette/Vaping Use: Never Used Second Hand Smoke Exposure: No (N/A) Substance Use Type: Marijuana service: No Review of Systems Const Denies anorexia, Denies fever(s) and Denies weakness ENT Denies dizziness Card Denies no additional complaints, Reports chest pain (reports constant, pressure since hospitalization 1 mo ago, anxiety), Denies lightheadedness and Denies dyspnea Resp Reports no additional complaints and Denies dyspnea GI Denies abdominal pain Denies hematuria, Denies difficulty urinating, Denies flank pain, Denies urinary frequency, Denies urinary incontinence and Denies urinary urgency Musc Denies back pain and Denies arthralgias Skin/Breast Denies rash Neuro Denies dizziness, Denies focal weakness, Denies tremor(s) and Denies weakness Psych Reports anxiety Physical Exam Const General: comfortable and no acute distress Orientation/consciousness: oriented to person, oriented to place and oriented to time Neck Neck: Yes no JVD Resp Effort & Inspection: able to speak in complete sentences Auscultation: clear to auscultation bilaterally Cardio Jugular venous distension: no JVD Rate: regular rate Rhythm: regular rhythm Heart sounds: S1 normal heart sound present and S2 normal heart sound present GI Palpation (GI): Soft to palpation Rectal Exam - Male: No tenderness General: Yes no CVA tenderness Back/Spine/Pelvis Back: no CVA tenderness Skin Rashes: no rashes Neuro General: oriented to person, oriented to place and oriented to time Extrem General: Yes normal to inspection Right upper extremity: edema (since starting amlodipine) Left upper extremity: edema (since starting amlodipine) Results Reviewed Nephrology Results: Hgb 10.5 g/dl (14.0-18.0) L 10/30/23 WBC 6.3 X10*3/uL (4.8-10.8) 10/30/23 Plt Count 188 X10*3/uL (160-400) 10/30/23 Sodium 139 mmol/L (135-145) 10/31/23 Potassium 3.7 mmol/L (3.3-5.1) 10/31/23 Chloride 105 mmol/L (96-108) 10/31/23 Carbon Dioxide 27 mmol/L (22-29) 10/31/23 BUN 21 mg/dL (9-16) H 10/31/23 Creatinine 1.51 mg/dL (0.5-1.4) H 10/31/23 Calcium 9.3 mg/dL (8.4-10.2) 10/31/23 Urine Protein 300 (3+) mg/dL (Neg-Trace) H 05/20/22 Assessment & Plan Assessment & Plan (1) Uncontrolled hypertension: Code(s): I10 - Essential (primary) hypertension Category: Medical (2) Chronic kidney disease, stage 2 (mild): Code(s): N18.2 - Chronic kidney disease, stage 2 (mild) Category: Medical (3) KARUNA (acute kidney injury): Code(s): N17.9 - Acute kidney failure, unspecified Category: Medical Plan Pt with CKD stage 3a in setting of longstanding DMII, with recent increase in creatinine may have been related to olmesartan, though also question glomerulonephritis brisa rivera hx of blood and protein in urine will get renal US to assess echogenicity and obstruction of CKD will also check SPEP, C3/C4 to rule out other non-diabetic etiologies of CKD will get UA, urine protein and creatinine pt blood pressure has significantly improved, will not make any medication changes today and get labs first, as it has been a month since medications were changed and unclear if creatinine has improved as a result of this he will avoid NSAIDs he will work on healthy diet and weight loss as well as regular exercise he has been working on avoiding salt in his diet he will also work on hydration he will return to the office in one month Discussed with Dr Perry. Orders: Orders 2 Complement C3 Today I10 - Essential (primary) hypertension, N17.9 - Acute kidney failure, unspecified, N18.2 - Chronic kidney disease, stage 2 (mild) Complement C4 Today I10 - Essential (primary) hypertension, N17.9 - Acute kidney failure, unspecified, N18.2 - Chronic kidney disease, stage 2 (mild) US renal BI Today I10 - Essential (primary) hypertension, N17.9 - Acute kidney failure, unspecified, N18.2 - Chronic kidney disease, stage 2 (mild) Protein Creatinine Ratio, Ur Today I10 - Essential (primary) hypertension, N17.9 - Acute kidney failure, unspecified, N18.2 - Chronic kidney disease, stage 2 (mild) UA w Microscopic Today I10 - Essential (primary) hypertension, N17.9 - Acute kidney failure, unspecified, N18.2 - Chronic kidney disease, stage 2 (mild) Protein Electrophoresis, Serum Today I10 - Essential (primary) hypertension, N17.9 - Acute kidney failure, unspecified, N18.2 - Chronic kidney disease, stage 2 (mild) Basic Metabolic Panel Today I10 - Essential (primary) hypertension, N17.9 - A cute kidney failure, unspecified, N18.2 - Chronic kidney disease, stage 2 (mild), N18.30 - Chronic kidney disease, stage 3 unspecified Medications: Discontinued ondansetron Discontinued Reason: Patient no longer taking 4 mg PO Q6-8H PRN 14 tabs 0RF nausea and vomiting carvedilol Discontinued Reason: Patient no longer taking 6.25 mg See Protocol PO BID 60 tabs 0RF Coding Level of Care Code New Pt Level 4 (81532) Diagnoses Uncontrolled hypertension I10 Chronic kidney disease, stage 2 (mild) N18.2 KARUNA (acute kidney injury) N17.9
[2023-11-29 14:49] VITALS: BP 148/89; PULSE 77; O2SAT 99; BMI 34.9
[2023-11-29 15:10] VITALS: BP 140/86
== END 2023-11-29 15:22 | disposition home or self-care (01) ==
PROVIDERS: PCP Registered Nurse; Referring Provider Registered Nurse; Visit Provider Internal Medicine Hypertension Specialist
DX: E11.22 Type 2 diabetes mellitus with diabetic chronic kidney disease (principal); I12.9 Hypertensive chronic kidney disease with stage 1 through stage 4 chronic kidney disease, or unspecified chronic kidney disease; N18.2 Chronic kidney disease, stage 2 (mild); N17.9 Acute kidney failure, unspecified
CPT/HCPCS: 99204

== ENCOUNTER → 2023-11-29 14:48 | Outpatient (BNVA) | payer MEDICAID, SELFPAY | PROVIDERS: PCP Registered Nurse; Referring Provider Registered Nurse; Visit Provider Internal Medicine Hypertension Specialist | DX: E11.22 Type 2 diabetes mellitus with diabetic chronic kidney disease (principal); I12.9 Hypertensive chronic kidney disease with stage 1 through stage 4 chronic kidney disease, or unspecified chronic kidney disease; E11.65 Type 2 diabetes mellitus with hyperglycemia; N18.2 Chronic kidney disease, stage 2 (mild); N17.9 Acute kidney failure, unspecified | CPT/HCPCS: 99212 ==

== ENCOUNTER 2024-02-06 10:05 | Inpatient (IN) | payer MEDICAID, SELFPAY ==
[2024-02-06] VITALS (8 sets, daily range): BP systolic 142–175; BP diastolic 78–100; PULSE 81–115; RESP 14–20; TEMP 36.6–37; O2SAT 97–100; BMI 33.2; BMI 30.6
--- NOTE | 2024-02-06 10:25 | ECG_ITS ---
Test Reason : CHEST PAIN Blood Pressure : / mmHG Vent. Rate : 107 BPM Atrial Rate : 107 BPM P-R Int : 132 ms QRS Dur : 084 ms QT Int : 334 ms P-R-T Axes : 072 045 066 degrees QTc Int : 445 ms Sinus tachycardia Otherwise normal ECG When compared with ECG of 30-OCT-2023 15:51, No significant change was found Referred By: Generic ED Physician Electronically Signed By:Marcus Valdes
[2024-02-06 10:48] LABS: Basophils Percent Auto 0.2 % (0-2); Hematocrit 33.7 % (42.0-52.0); Hemoglobin 12.2 g/dl (14.0-18.0); Imm Gran Abs Auto 0.04 X10*3/uL (0.00-0.03); Imm Gran Pct Auto 0.3 % (0.0-0.4); Lymphocytes Absolute Auto 1.4 X10*3/uL (1.2-4.9); Lymphocytes Percent Auto 12.1 % (20-40); MANUAL DIFF FLAG NO; Mean Corpuscular HGB Conc 36.2 g/dl (31.0-36.0); Mean Corpuscular Volume 82.8 fL (80.0-98.0); Mean Platelet Volume 9.6 fL (9.4-12.4); Monocytes Percent Auto 8.1 % (2-11); Neutrophils Absolute Auto 9.3 x10*3/uL (2.0-8.3); Neutrophils Percent Auto 79.3 % (45-73); Platelet Count 267 X10*3/uL (160-400); Red Blood Count 4.07 X10*6/uL (4.60-5.80); Red Cell Distribution Width 12.1 % (11.0-16.0); White Blood Count 11.7 X10*3/uL (4.8-10.8)
[2024-02-06 11:02] LABS: Alanine Aminotransferase 16 U/L (0-40); Albumin Level 4.1 g/dL (3.5-5.0); Alkaline Phosphatase 74 U/L (39-117); Anion Gap 18 (12-20); Aspartate Amino Transferase 18 U/L (5-37); Bilirubin Total 1.2 mg/dL (0.0-1.0); Blood Urea Nitrogen 34 mg/dL (9-16); Calcium 9.8 mg/dL (8.4-10.2); Carbon Dioxide 25 mmol/L (22-29); Chloride 95 mmol/L (96-108); Creatinine Clr Calc Pharmacy 57.6; Estimated Glomerular Filt Rate 38; Glucose Random 200 mg/dL (60-115); Magnesium 2.5 mg/dL (1.6-2.6); Potassium 4.2 mmol/L (3.3-5.1); Sodium 134 mmol/L (135-145); Total Protein 7.6 g/dL (6.5-8.0)
--- NOTE | 2024-02-06 11:27 | ED_ITS ---
HPI - General Adult General Chief complaint: Nausea/Vomiting/Diarrhea Stated complaint: Vomiting, diabetic Time Seen by Provider: 02/06/24 11:27 Source: patient Mode of arrival: wheelchair Limitations: no limitations History of Present Illness ED Provider: Laisha Vela PA-C HPI narrative: Patient is a 28 year old assigned male at with a history of DM, HTN, anxiety, and CKD stage 2 presenting to the emergency department today with nausea, vomiting, diarrhea, and epigastric pain. Patient states that over the last 2 days he has had nausea, vomiting, diarrhea, and epigastric pain. Patient states that he was supposed to see a kidney doctor but has not done so yet. Patient denies any dizziness, lightheadedness, fever, chills, blurry vision, double vision, loss of vision, chest pain, difficulty breathing, shortness of breath, back pain, night sweats, pain with urination, increased urinary frequency, increased urinary urgency, blood in his urine or stool, syncope or a near syncopal episode, recent trauma or falls, bowel incontinence, bladder incontinence, or any other complaints at this time. Onset (ago): day(s) (2) Relieving factors: none Exacerbating factors: none Associated symptoms: nausea/vomiting Treatments prior to arrival: none Related Data Home Medications ?Medication ?Instructions ?Recorded ?Confirmed empagliflozin 10 mg tablet 10 mg PO DAILY 10/29/23 02/06/24 (Jardiance) insulin glargine 100 unit/mL (3 10 unit subcut BEDTIME 10/29/23 02/06/24 mL) subcutaneous pen (Lantus Solostar U-100 Insulin) escitalopram oxalate 5 mg tablet 10 mg PO DAILY 11/29/23 02/06/24 carvedilol 25 mg tablet 25 mg PO BID 02/06/24 02/06/24 pantoprazole 20 mg tablet,delayed 20 mg PO DAILY 02/06/24 02/06/24 release Allergies Allergy/AdvReac Type Severity Reaction Status Date / Time No Known Allergies Allergy Verified 02/06/24 10:23 [No Known Allergies*] Review of Systems 2 Constitutional: Constitutional: Reports no additional constitutional complaints, Denies chills, Denies fever(s) and Denies night sweats Eyes: Eyes: Reports no additional eye complaints, Denies blurry vision, Denies change in vision, Denies diplopia, Denies eye discharge, Denies loss of vision and Denies eye pain ENT: Denies dizziness Cardiovascular: Cardiovascular: Reports no additional cardiovascular complaints, Denies chest pain, Denies lightheadedness, Denies Loss of Consciousness and Denies dyspnea Respiratory: Respiratory: Reports no additional respiratory complaints and Denies dyspnea Gastrointestinal: Gastrointestinal: Reports no additional gastrointestinal complaints, Reports abdominal pain, Denies melena, Denies hematochezia, Denies change in bowel habits, Denies change in stool character, Reports nausea and Reports vomiting Genitourinary: Genitourinary: Reports no additional male genitourinary complaints, Denies hematuria, Denies oliguria, Denies difficulty urinating, Denies dysuria, Denies urinary frequency, Denies urinary hesitancy, Denies urinary incontinence and Denies urinary urgency Musculoskeletal: Musculoskeletal: Reports no additional musculoskeletal complaints, Denies numbness and Denies tingling Neurologic: Denies dizziness, Denies loss of vision, Denies numbness and Denies tingling Psychiatric: Psychiatric: Reports no additional psychiatric complaints Endocrine: Endocrine: Reports no additional endocrine complaints Hematologic/Lymphatic: Hematologic/Lymphatic: Reports no additional hematologic/lymphatic complaints Allergic/Immunologic: Allergic/Immunologic: Reports no additional allergic/immunologic complaints [facility] Past Medical History Attestation statement: The following information was validated with the patient. Source: old records reviewed and nursing notes reviewed Medical History ADHD Generalized anxiety disorder Type 2 diabetes mellitus Cannabis hyperemesis syndrome concurrent with and due to cannabis dependence Hypertension Surgical History History of eye surgery (~06/2022) Social History Social History Household Members: Significant Other and Children Housing: Apartment Do you presently have visiting nurse or other home services: No Patient Tobacco Use Status: Never used Tobacco Smoked in Last 30 Days: No e-Cigarette/Vaping Use: Never Used Second Hand Smoke Exposure: No (N/A) Use of substances other than those prescribed or required for medical reasons: Yes Substance Use Type: Marijuana Advance Directives: No Do you have a plan to hurt others: No Plan service: No Physical Exam ED Vital Signs: Vital Signs - 24 hr 02/06/24 10:21 02/06/24 11:31 02/06/24 12:55 Temperature 97.8 F Pulse Rate 115 H 108 H 88 Respiratory Rate 20 20 16 Blood Pressure 159/96 H 175/100 H 152/84 H Pulse Oximetry 100 99 Oxygen Delivery Method Room Air Room Air 02/06/24 14:30 Temperature Pulse Rate 88 Respiratory Rate Blood Pressure 149/86 H Pulse Oximetry Oxygen Delivery Method BMI result Body Mass Index 33.2 Const General: cooperative, no acute distress, alert and awake Nutritional Appearance: well nourished Orientation/consciousness: patient oriented x3 Limitations: no limitations HENMT Head: Yes normal to inspection and Yes atraumatic Ears: hearing grossly normal bilaterally and external ears normal General nose exam: Normal external nose present, no nasal discharge noted and no epistaxis Face and sinus: Yes normal facial exam, No abrasion and No laceration Mouth: Normal oral and palatal mucosa present, no drooling and no muffled voice Eyes General: appearance normal, both eyes and all related structures Periorbital: periorbital findings normal Eyelids: Yes eyelids normal Conjunctivae: conjunctivae normal Pupils: Equal, round and reactive pupils present EOM: EOMs intact bilaterally Neck Neck: Yes normal visual inspection, Yes full ROM and Yes no lymphadenopathy Chest Chest palpation & inspection: normal inspection of the chest Resp Effort & Inspection: normal respiratory effort and able to speak in complete sentences Cardio Rate: tachycardic Rhythm: regular rhythm GI Inspection: Yes normal to inspection Neuro General: patient oriented x3 and moves all extremities Cranial nerves: Yes Equal, round and reactive pupils present Cognition (Neuro): normal cognition Extrem General: Yes normal to inspection, Yes full ROM and Yes capillary refill normal Psych Appearance: grossly normal Mental Status: mental status grossly normal Affect: normal affect Attitude: cooperative Thought process: Normal thought process present Thought content: Normal thought content present Insight: Good insight present (Psych) Medications Administered Generic Name Dose Route Start Last Admin Trade Name Freq PRN Reason Stop Dose Admin Carvedilol 25 mg 02/06/24 14:15 02/06/24 14:30 Carvedilol 25 Mg Tablet PO 25 mg BID PRIYANKA Administration Protocol Enoxaparin Sodium 40 mg 02/06/24 14:00 02/06/24 14:28 Enoxaparin Sodium 40 Mg/0.4 Ml Syringe SUBCUT 40 mg Q24H PRIYANKA Administration Escitalopram Oxalate 10 mg 02/06/24 14:30 02/06/24 14:30 Escitalopram Oxalate 10 Mg Tablet PO 10 mg DAILY PRIYANKA Administration Lactated Ringer's 1,000 mls @ 100 mls/hr 02/06/24 13:30 02/06/24 14:27 Lr IVCONT 100 mls/hr .Q10H PRIYANKA Administration Discontinued Medications Generic Name Dose Route Start Last Admin Trade Name Freq PRN Reason Stop Dose Admin Al Hydroxide/Mg Hydroxide 15 ml 02/06/24 11:28 02/06/24 11:42 Magnesium Hydrox/Alum Hydrox 30 Ml Oral.Susp PO 02/06/24 11:29 15 ml ONCE ONE Administration Lactated Ringer's 500 mls @ 999 mls/hr 02/06/24 11:30 02/06/24 12:32 Lr IV 02/06/24 12:00 Infused .Q31M PRIYANKA Infusion Lorazepam 1 mg 02/06/24 12:45 02/06/24 12:55 Lorazepam 2 Mg/Ml Vial IVPUSH 02/06/24 12:46 1 mg ONCE ONE Administration Ondansetron HCl 4 mg 02/06/24 11:28 02/06/24 11:42 Ondansetron Hcl 4 Mg/2 Ml Vial IVPUSH 02/06/24 11:29 4 mg ONCE ONE Administration Pantoprazole Sodium 40 mg 02/06/24 11:28 02/06/24 11:42 Pantoprazole Sodium 40 Mg/10 Ml Vial IVPUSH 02/06/24 11:29 40 mg ONCE ONE Administration Prochlorperazine Edisylate 5 mg 02/06/24 13:25 02/06/24 14:24 Prochlorperazine Edisylate 10 Mg/2 Ml Vial IVPUSH 02/06/24 13:26 5 mg ONCE ONE Administration Medical Decision Making Medical Decision Making MDM Narrative: Patient is a 28 year old assigned male at with a history of DM, HTN, anxiety, and CKD stage 2 presenting to the emergency department today with nausea, vomiting, diarrhea, and epigastric pain. Patient's physical exam was as noted in the physical exam portion of this note. Patient's blood work showed an elevated WBC of 11.7, NA of 134, BUN of 34, CR of 2.07, glucose of 200, and beta-hydroxy of 1.97. Patient's EKG showed sinus tachycardia. I gave the patient a GI cocktail and a liter of LR. Patient's clinical presentation is not consistent with sepsis @1230. I spoke to the hospitalist team who agreed to admission for KARUNA + gastritis. I explained my physical exam findings as well as all test results to the patient. I answered all questions asked by the patient. Patient verbalized agreement and understanding with this treatment plan and admission. Differential Diagnosis Differential Diagnoses: The differential diagnosis associated with the presentation includes Abdominal pain Gastritis DKA Acute kidney injury Admission/Observation Consideration of admission/observation: Escalation of care including admission/observation considered Patient admitted. Consult Healthcare Provider Management of the patient was discussed with: Hospitalist (agreed to admission as noted in the MDM Rationale portion of this note.) Lab Data [facility] Lab Attestation statement: I reviewed the patient's lab results. My interpretation of these results are in the MDM Rationale portion of this note. 02/06/24 10:43 02/06/24 10:43 Labs: Lab Results 02/06/24 02/06/24 Range/Units 10:43 12:43 WBC 11.7 H (4.8-10.8) X10*3/uL RBC 4.07 L (4.60-5.80) X10*6/uL Hgb 12.2 L (14.0-18.0) g/dl Hct 33.7 L (42.0-52.0) % MCV 82.8 (80.0-98.0) fL MCH 30.0 (27.0-33.0) pg MCHC 36.2 H (31.0-36.0) g/dl RDW 12.1 (11.0-16.0) % Plt Count 267 D (160-400) X10*3/uL MPV 9.6 (9.4-12.4) fL Immature Gran % (Auto) 0.3 (0.0-0.4) % Neut % (Auto) 79.3 H (45-73) % Lymph % (Auto) 12.1 L (20-40) % Ada % (Auto) 8.1 (2-11) % Eos % (Auto) 0.0 (0-4) % Baso % (Auto) 0.2 (0-2) % Lymph # (Auto) 1.4 (1.2-4.9) X10*3/uL Ada # (Auto) 1.0 (0.1-1.2) X10*3/uL Eos # (Auto) 0.0 (0.0-0.4) X10*3/uL Baso # (Auto) 0.0 (0.0-0.2) X10*3/uL Abs Immat Gran (auto) 0.04 H (0.00-0.03) X10*3/uL Absolute Neuts (auto) 9.3 H (2.0-8.3) x10*3/uL Absolute Nucleated RBC 0.000 (0.0-0.012) X10*3/uL Nucleated RBC % (auto) 0.0 (0.0-0.2) /100WBC VBG pH 7.51 H (7.32-7.43) VBG pCO2 42 mmHg VBG pO2 71 mmHg VBG HCO3 34 H (22-26) mmol/L VBG O2 Saturation 96.0 % VBG Base Excess 11.0 mmol/L Sodium 134 L (135-145) mmol/L Potassium 4.2 (3.3-5.1) mmol/L Chloride 95 L (96-108) mmol/L Carbon Dioxide 25 (22-29) mmol/L Anion Gap 18 (12-20) BUN 34 H (9-16) mg/dL Creatinine 2.07 H (0.5-1.4) mg/dL Estim Creat Clear Calc 57.6 Estimated GFR 38 Random Glucose 200 H (60-115) mg/dL Calcium 9.8 (8.4-10.2) mg/dL Magnesium 2.5 (1.6-2.6) mg/dL Total Bilirubin 1.2 H (0.0-1.0) mg/dL AST 18 (5-37) U/L ALT 16 (0-40) U/L Alkaline Phosphatase 74 (39-117) U/L Total Protein 7.6 (6.5-8.0) g/dL Albumin 4.1 (3.5-5.0) g/dL Beta-Hydroxybutyrate 1.97 H (0.02-0.27) mmol/L Independent Interpretation I performed an independent interpretation of an: EKG Interpretation: Vent. Rate: 107 BPM Atrial Rate: 107 BPM P-R Int: 132 ms QRS Dur: 084 ms QT Int: 334 ms P-R-T Axes: 072 045 066 degrees QTc Int: 445 ms Sinus tachycardia Otherwise normal ECG When compared with ECG of 30-OCT-2023 15:51, No significant change was found DD/ 1019 Chronic Conditions Patient?s care impacted by: Diabetes Critical Care Time Critical Care Time Critical Care Time: Yes Total Critical Care Time: 34 Attestation: I spent 34 minutes of Critical Care Time with this patient. This does not include time spent on separately reported billable procedures. Discharge Plan Discharge Clinical Impression: KARUNA (acute kidney injury), Acute gastritis Patient Disposition: Admitted As Inpatient Prescriptions: No Action pantoprazole 20 mg tablet,delayed release (DR/EC) 20 mg PO DAILY carvedilol 25 mg tablet 25 mg PO BID insulin glargine [Lantus Solostar U-100 Insulin] 100 unit/mL (3 mL) insulin pen 10 unit subcut BEDTIME Jardiance 10 mg tablet 10 mg PO DAILY escitalopram oxalate 5 mg tablet 10 mg PO DAILY Print Language: Botswanan
[2024-02-06] MEDS: ondansetron HCL 4 MG/2 ML VIAL IVPUSH (11:42)
[2024-02-06] MEDS: Pantoprazole Sodium 40 MG/10 ML VIAL IVPUSH ×2 (11:42→16:14)
[2024-02-06] MEDS: Magnesium Hydrox/Alum Hydrox 30 ML ORAL.SUSP 15 ML PO (11:42)
[2024-02-06] MEDS: Lactated Ringers 500 ML 999 ML IV (11:43)
--- NOTE | 2024-02-06 11:44 | PC.NURSE ---
Pt presents to ED from home via family, reports 3 days of abdominal pain and nausea vomiting. Ongoing issue for past 3-4 months, intermittent, has been admitted 2 times for this recently. Denies any fevers, CP, SOB. Alert and oriented, breathing even and unlabored, skin pale and clammy. ABD pain generalized, 10/10. Appears uncomfortable.
[2024-02-06 11:54] LABS: Beta-Hydroxybutyrate 1.97 mmol/L (0.02-0.27)
--- NOTE | 2024-02-06 12:49 | P.HPHOSP_ITS ---
History of Present Illness Date of Service: 02/06/24 Attending physician on admission: [facility] Chief Complaint: N/V, weakness Pt is a 28-year-old male with a PMH significant for?HTN, insulin-dependent type 2 diabetes, CKD2, blind in left eye, and axiety who presents to the ED with?with nausea, vomiting, and epigastric abdominal pain x2 days. Patient reports has not been able to keep anything down since Saturday. Has been experiencing sharp and stabbing epigastric pain, as well as 1-2 episodes of diarrhea yesterday. No hematemesis or hematochezia. Lize is at bed side and states pt ?passed out? earlier this morning while returning from the bathroom. The patient, however, reports felt lightheaded, dizzy, and weak and slumped to the floor. The patient denies loss of consciousness. No headstrike. Patient also complains of increasing anxiety. Patient has had insurance issues recently and relatively noncompliant with outpatient care. Was supposed to follow with Nephrology after last admission here at [facility] but has yet to do so. Has not yet established with outpatient psychiatric care and currently only on Lexapro. Reports previously was on hydralazine but stopped taking that after noticed blurry vision in his right eye. Patient also notes this is his 3rd hospital admission for similar symptoms in the past 4 months: Was admitted in October at [facility] and in December at [facility] [place]. In the ED pt was tachycardic up to 1 and hypertensive up to 175/100. Labs were significant for leukocytosis 0.7, sodium 134, BUN 34 , creatinine 2.07 (elevated from 1.51 on 10/31/2023), and beta hydroxybutyrate 1.97. EKG demonstrated sinus tachycardia of 107 without evidence of significant ST elevations or depressions. Pt was treated with Protonix, Maalox, ondansetron, Ativan, and IVF. Pt will be admitted to the hospital for KARUNA on CKD secondary to intractable nausea and vomiting likely secondary to anxiety/panic attack. Review of Systems 2 Review of Systems: Negative except for that which is stated in the [facility] Medical History ADHD Generalized anxiety disorder Type 2 diabetes mellitus Cannabis hyperemesis syndrome concurrent with and due to cannabis dependence Hypertension Surgical History History of eye surgery (~06/2022) Social History Household Members: Family Housing: Apartment Do you presently have visiting nurse or other home services: No Patient Tobacco Use Status: Never used Tobacco Smoked in Last 30 Days: No e-Cigarette/Vaping Use: Never Used Second Hand Smoke Exposure: No (N/A) Use of substances other than those prescribed or required for medical reasons: Yes Substance Use Type: Marijuana Substance Use Frequency: Daily Last Used Substance: Days (ago) Last Used Substance Other:: 3-4 days Currently Displaying Signs/Symptoms of Drug Intoxication Withdrawal: No Have you been hit, kicked, punched, or otherwise hurt by someone within the past year? If so, by whom?: No Do you feel safe in your current relationship?: Yes Is there a partner from a previous relationship who is making you feel unsafe now?: No Are you made to feel afraid or neglected: No Advance Directives: No Do you have a plan to hurt others: No Plan Recently lost weight without trying: Yes How much weight loss: 2-13 pounds Eating poorly because of decreased appetite: No Nutrition screen score: 3 Nutrition Risks: No Nutritional Risk Poor oral hygiene: No service: No Meds Allergies Allergy/AdvReac Type Severity Reaction Status Date / Time No Known Allergies Allergy Verified 02/06/24 10:23 [No Known Allergies*] Home Medications ?Medication ?Instructions ?Recorded ?Confirmed ?Last Taken ?Type empagliflozin 10 mg tablet 10 mg PO DAILY 10/29/23 02/06/24 02/05/24 History (Jardiance) insulin glargine 100 unit/mL (3 10 unit subcut BEDTIME 10/29/23 02/06/24 02/05/24 History mL) subcutaneous pen (Lantus Solostar U-100 Insulin) escitalopram oxalate 5 mg tablet 10 mg PO DAILY 11/29/23 02/06/24 02/05/24 History carvedilol 25 mg tablet 25 mg PO BID 02/06/24 02/06/24 02/05/24 History pantoprazole 20 mg tablet,delayed 20 mg PO DAILY 02/06/24 02/06/24 02/05/24 History release Physical Exam 2 Vital Signs and Narrative: Vital Signs: Last Vital Signs Temp 97.8 F 02/06/24 10:21 Pulse 108 H 02/06/24 11:31 Resp 20 02/06/24 11:31 BP 175/100 H 02/06/24 11:31 Pulse Ox 99 02/06/24 11:31 O2 Del Method Room Air 02/06/24 11:31 BMI result Body Mass Index 33.2 General: AOx3, looking uncomfortable Resp: CTA bilaterally CVS: S1, S2, RRR GI: +BS, no distention, epigastric tenderness Skin: Warm, dry Neuro: Cranial nerves II-XII grossly intact bilaterally. Motor grossly intact bilaterally Extremities: No edema Psych: Anxious, barely moving or speaking above a whisper Results Labs 02/07/24 06:04 02/07/24 06:04 Labs: Laboratory Results - last 24 hr 02/06/24 10:43 MCV 82.8 MCH 30.0 MCHC 36.2 H RDW 12.1 Plt Count 267 D MPV 9.6 Immature Gran % (Auto) 0.3 Neut % (Auto) 79.3 H Lymph % (Auto) 12.1 L [place] % (Auto) 8.1 Eos % (Auto) 0.0 Baso % (Auto) 0.2 Lymph # (Auto) 1.4 [place] # (Auto) 1.0 Eos # (Auto) 0.0 Baso # (Auto) 0.0 Abs Immat Gran (auto) 0.04 H Absolute Neuts (auto) 9.3 H Absolute Nucleated RBC 0.000 Nucleated RBC % (auto) 0.0 Anion Gap 18 Estim Creat Clear Calc 57.6 Estimated GFR 38 Random Glucose 200 H Calcium 9.8 Magnesium 2.5 Total Bilirubin 1.2 H AST 18 ALT 16 Alkaline Phosphatase 74 Total Protein 7.6 Albumin 4.1 Beta-Hydroxybutyrate 1.97 H Assessment and Plan (1) KARUNA (acute kidney injury): Status: Acute Plan Pt is a 28-year-old male with a PMH significant for?HTN, insulin-dependent type 2 diabetes, CKD2, blind in left eye, and axiety who presents to the ED with?with nausea, vomiting, and epigastric abdominal pain x2 days. Pt will be admitted to the hospital for KARUNA on CKD secondary to intractable nausea and vomiting likely secondary to anxiety/panic attack. KARUNA on CKD 2 Creatinine 2.07 at time of presentation, elevated from 1.51 on 10/30 Likely secondary to GI losses from intractable N/V and reduced p.o. intake Patient received IVF in the ED Will place on maintenance fluids Nephrology consult Follow creatinine Intractable nausea, vomiting, and epigastric abdominal pain Likely in the setting of anxiety/panic attack vs diabetic gastritis Will treat with IVF, Protonix, ondansetron, and Compazine x1 dose Clear liquid diet for now, advance as tolerated Uncontrolled anxiety Patient extremely anxious Recently stopped hydroxyzine due to blurry vision Does not have outpatient mental health care at the moment Continue escitalopram Ativan p.r.n. Hypertension Poorly controlled BP as high as 175/100 in the ED Continue carvedilol Labetalol p.r.n. for SBP>180 Insulin-dependent type 2 diabetes Hold Jardiance for now due to reduced p.o. intake Will place on sliding scale insulin Continue Lantus at 50% Full Code Attending:?Dr. Trinh DVT Prophylaxis: Lovenox Pt will require a hospitalization of at least two nights for treatment of?KARUNA on CKD in the setting of intractable nausea, vomiting, abdominal pain likely secondary to anxiety/panic attack. Quality Stroke Does the patient have a stroke diagnosis?: No VTE Prior VTE?: No VTE Risk Level:: Medical - moderate - high VTE Device Contraindication: Treatment Not Indicated VTE Drug Contraindication: N/A - Med Ordered
[2024-02-06] MEDS: LORazepam 2 MG/ML VIAL 1 MG IVPUSH (12:55)
[2024-02-06 12:57] LABS: VBG pCO2 42 mmHg; VBG pH 7.51 (7.32-7.43); VBG pO2 71 mmHg
[2024-02-06 12:58] LABS: VBG HCO3 34 mmol/L (22-26); Venous Blood Gas Refer to POC result
--- NOTE | 2024-02-06 13:07 | PHA.MEDREC ---
Addendum entered by Justyn Queen [facility] 02/06/24 14:19: Called significant other Melinda, she said patient is taking escitalopram 10 mg daily and carvedilol 25 mg bid. When asked about hydralazine, she doesn't think he's taking it because the bottle is still full . Addendum entered by Justyn Queen [facility] 02/06/24 14:09: For escitalopram, pt is still taking 5 mg daily. Med rec was reviewed by [facility]. Original Note: Pharmacy Consult ? Medication Reconciliation Pharmacy has completed the medication reconciliation. Spoke with patient and he was able to confirm medications with me. He states he is no longer taking the Amlodipine 10mg tab or the Hydroxyzine 50mg tab as of about 2-3 weeks ago due to him developing blurry vision while taking them. He also stated that he is not taking the Excedrin Migraine anymore per his Dr due to it effecting his kidneys and he states he stopped that a while ago . He confirmed his Lantus Solostar and confirmed he is injecting 10units at bedtime. He confirmed he last took his medications last night.
--- NOTE | 2024-02-06 14:22 | PM.CNNEP ---
History of Present Illness Reason for Consult Consult date: 02/06/24 Chief Complaint Chief complaint: Vomiting, diabetic History of Present Illness Narrative: pt is a 28 y/o male with a medical history of HTN, DMII, obesity, anxiety, blind in left eye (retinal detachment) and hx of KARUNA. He was seen in nephrology office for KARUNA in November 2023, lost to follow up. former smoker, reports quit alcohol 1 year ago. Daily marijuana use. Denies other drug use. 02/05 presented to [facility] with x2 days of nausea, vomiting, and epigastric pain. States had x1 episode of diarrhea first day then no more diarrhea, just vomiting. States he has not been able to keep anything down for over 2 days. Nephrology consulted for KARUNA. at home takes jardiance, lantus, carvedilol 12.5mg PO BID, pantoprazole 20mg daily, and PRN lorazepam. Denies other known prescriptions. Reports was on amlodipine and discontinued due to blurry vision. states he does not take NSAIDs as he knows it is not good for his kidneys. BP 175/100, tachy 110s, IVP labetolol, most recent BP 150s, HR 80s pt reports he is urinating comfortably without difficulty, denies urinary symptoms/flank pain. creatinine 2.07 02/06/24, most recent creatinine prior was 1.58 on 12/20 (scanned docs), 10/31/23 was 1.51. beta hydroxybuterate elevated at 1.97, sugar is 200. Of note, pt had nephrology office visit in November 2023, lost to follow up. He had labs done December 2023, serum complements, ANCA and serum immunofixation unremarkable. urine total protein/creatinine ratio significantly elevated at 3.44, microalbumin/creatinine 2700, CAM positive; renal US not yet performed. he denies other symptoms outside of nausea, vomiting, fatigue and epigastric pain. states epigastric pain can be severe, comes in waves. states this has occurred before (severe epigastric pain) and was diagnosed wtih gastritis. he denies urinary symptoms. Denies chest pain, dizziness, shortness of breath. Denies lower abdominal pain. Denies flank pain. Review of Systems Constitutional: Reports fatigue, Denies headache(s) and Reports malaise Denies dizziness and Denies headache(s) Cardiovascular: Denies chest pain, Denies leg edema, Denies lightheadedness and Denies dyspnea Respiratory: Denies cough and Denies dyspnea Gastrointestinal: Reports abdominal pain (epigastric pain), Denies constipation, Denies diarrhea, Reports nausea and Reports vomiting Genitourinary: Denies hematuria, Denies oliguria, Denies difficulty urinating, Denies flank pain, Denies urinary frequency and Denies urinary hesitancy Musculoskeletal: Denies back pain and Denies arthralgias Skin/Breast: Denies rash Denies dizziness and Denies headache(s) Endocrine: Reports fatigue [facility] Past Medical History Medical History ADHD Generalized anxiety disorder Type 2 diabetes mellitus Cannabis hyperemesis syndrome concurrent with and due to cannabis dependence Hypertension Surgical History Surgical History History of eye surgery (~06/2022) Social History Social History Household Members: Significant Other and Children Housing: Apartment Do you presently have visiting nurse or other home services: No Patient Tobacco Use Status: Never used Tobacco Smoked in Last 30 Days: No e-Cigarette/Vaping Use: Never Used Second Hand Smoke Exposure: No (N/A) Use of substances other than those prescribed or required for medical reasons: Yes Substance Use Type: Marijuana Advance Directives: No Do you have a plan to hurt others: No Plan service: No Meds Allergies Allergy/AdvReac Type Severity Reaction Status Date / Time No Known Allergies Allergy Verified 02/06/24 10:23 [No Known Allergies*] Active Medications: Current Medications Acetaminophen (Acetaminophen 325 Mg Tablet) 650 mg PO Q6H PRN PRN Reason: Pain, Mild (Pain Scale 1-3), fever or headache Calcium Carbonate (Calcium Carbonate 750 Mg Tab.Chew) 750 mg PO Q4H PRN PRN Reason: Heartburn Carvedilol (Carvedilol 25 Mg Tablet) 25 mg PO BID [facility]; Protocol Enoxaparin Sodium (Enoxaparin Sodium 40 Mg/0.4 Ml Syringe) 40 mg SUBCUT Q24H [facility] Escitalopram Oxalate (Escitalopram Oxalate 10 Mg Tablet) 10 mg PO DAILY [facility] Glucose (Glucose Gel 15 Gm Gel..Gram.) 15 gm PO Q15M PRN; Protocol PRN Reason: per Hypoglycemia Standing Ord. Lactated Ringer's (Lr) 1,000 mls @ 100 mls/hr IVCONT .Q10H PRIYANKA Dextrose (D10) 250 mls @ 750 mls/hr IV Q15M PRN; Protocol PRN Reason: per Hypoglycemia Standing Ord. Insulin Glargine (Insulin Glargine,Hum.Rec.Anlog 100 Unit/Ml 10 Ml Vial) 5 unit SUBCUT BEDTIME PRIYANKA Insulin Human Lispro (Insulin Lispro 100 Unit/Ml 3 Ml Vial) 0 unit SUBCUT QIDACHS [facility]; Protocol Labetalol HCl (Labetalol Hcl 100 Mg/20 Ml Vial) 5 mg IVPUSH Q6H PRN PRN Reason: Sbp > 170 Lorazepam (Lorazepam 2 Mg/Ml Vial) 0.5 mg IVPUSH Q6H PRN PRN Reason: Anxiety Magnesium Hydroxide (Milk Of Magnesia 30 Ml Oral.Susp) 30 ml PO DAILY PRN PRN Reason: Constipation Melatonin (Melatonin 3 Mg Tablet) 6 mg PO BEDTIME PRN PRN Reason: Insomnia Ondansetron HCl (Ondansetron Hcl 4 Mg/2 Ml Vial) 4 mg IVPUSH Q8H PRN PRN Reason: Nausea and Vomiting Pantoprazole Sodium (Pantoprazole Sodium 40 Mg/10 Ml Vial) 40 mg IVPUSH BID@0630,1630 [facility] Sodium Chloride (0.9 % Sodium Chloride Flush 3 Ml Syringe) 3 ml IVFLUSH QSHIFT [facility] Home Medications ?Medication ?Instructions ?Recorded ?Confirmed ?Last Taken ?Type empagliflozin 10 mg tablet 10 mg PO DAILY 10/29/23 02/06/24 02/05/24 History (Jardiance) insulin glargine 100 unit/mL (3 10 unit subcut BEDTIME 10/29/23 02/06/24 02/05/24 History mL) subcutaneous pen (Lantus Solostar U-100 Insulin) escitalopram oxalate 5 mg tablet 10 mg PO DAILY 11/29/23 02/06/24 02/05/24 History carvedilol 25 mg tablet 25 mg PO BID 02/06/24 02/06/24 02/05/24 History pantoprazole 20 mg tablet,delayed 20 mg PO DAILY 02/06/24 02/06/24 02/05/24 History release Physical Exam Vital Signs: Last Vital Signs Temp 97.8 F 02/06/24 10:21 Pulse 88 02/06/24 12:55 Resp 16 02/06/24 12:55 BP 152/84 H 02/06/24 12:55 Pulse Ox 99 02/06/24 11:31 O2 Del Method Room Air 02/06/24 11:31 BMI result Body Mass Index 33.2 Const General: no acute distress, alert and awake Orientation/consciousness: patient oriented x3 Neck Neck: Yes no JVD Resp Effort & Inspection: normal respiratory effort and able to speak in complete sentences Auscultation: clear to auscultation bilaterally Cardio Jugular venous distension: no JVD Rate: regular rate Rhythm: regular rhythm Heart sounds: S1 normal heart sound present and S2 normal heart sound present GI Palpation (GI): Soft to palpation and Tenderness to palpation present (GI) (tender to epigastric palpation; non-tender to lower abdominal palpation. ) General: Yes no CVA tenderness Back/Spine/Pelvis Back: no CVA tenderness Skin Rashes: no rashes Neuro General: patient oriented x3 Extrem General: No edema Results Lab Results 02/06/24 10:43 02/06/24 10:43 Lab results: Chemistry 02/06/24 10:43 Sodium 134 L Potassium 4.2 Carbon Dioxide 25 BUN 34 H Creatinine 2.07 H Calcium 9.8 Hematology 02/06/24 10:43 WBC 11.7 H Hgb 12.2 L Plt Count 267 D Assessment and Plan (1) KARUNA (acute kidney injury): Status: Acute (2) Uncontrolled hypertension: Status: Acute (3) Diabetic nephropathy: Qualifiers: Diabetes mellitus type: type 2 Qualified Code(s): E11.21 - Type 2 diabetes mellitus with diabetic nephropathy Status: Acute Plan KARUNA vs progression of underlying diabetic kidney disease likely has component of tubular injury from hypoperfusion from vomiting/reduced PO intake, though may also have progression of underlying chronic diabetic kidney disease recommend continuing to hold jardiance continue IVF as ordered continue current medication regimen, blood pressures acceptable at this time will check urine drug screen to rule out drug-related injury patient will need a renal biopsy once his acute issues are resolved avoid nephrotoxins regular blood pressure checks, daily electrolyte and renal function labs will continue to follow Discussed with Dr Guillaume Melgar Date of Service Date of Service: 02/06/24
[2024-02-06] MEDS: Prochlorperazine Edisylate 10 MG/2 ML VIAL 5 MG IVPUSH (14:24)
[2024-02-06] MEDS: Lactated Ringers 1,000 ML 100 ML IVCONT ×2 (14:27→22:24)
[2024-02-06] MEDS: Enoxaparin Sodium 40 MG/0.4 ML SYRINGE SUBCUT (14:28)
[2024-02-06] MEDS: carvediloL 25 MG TABLET PO ×2 (14:30→21:57)
[2024-02-06] MEDS: Escitalopram Oxalate 10 MG TABLET PO (14:30)
[2024-02-06 17:27] LABS: Glucose, Whole Blood 124 mg/dL (60-115)
[2024-02-06] MEDS: HYDROmorphone HCl 0.5 MG/0.5 ML SYRINGE IVPUSH ×2 (19:23→22:22)
[2024-02-06] MEDS: LORazepam 2 MG/ML VIAL 0.5 MG IVPUSH (19:29)
--- NOTE | 2024-02-06 19:40 | MHC.EDTECH ---
This tech took over care of pt at 1900,rounded and introduced self to pt,vitals taken,BP is elevated ,RN made aware,pt is resting with eyes closed,call marlow in reach
--- NOTE | 2024-02-06 19:41 | MHC.EDTECH ---
Attempted to get a UDS ,pt is unable to give at this time
--- NOTE | 2024-02-06 19:51 | PC.NURSE ---
this rn assumed care of pt @ 1900. pt medicated with prn ativan for increased anxiety and prn Dilaudid for increased pain. report given awaiting transport to bed assignment
[2024-02-06 20:54] LABS: Glucose, Whole Blood 142 mg/dL (60-115)
[2024-02-06] MEDS: Melatonin 3 MG TABLET 6 MG PO (21:58)
[2024-02-06] MEDS: Insulin Glargine,Hum.rec.anlog 100 UNIT/ML 10 ML VIAL SUBCUT (21:58)
[2024-02-06] MEDS: 0.9 % Sodium Chloride Flush 3 ML SYRINGE IVFLUSH (21:58)
[2024-02-06 22:07] LABS: Amphetamine Screen Urine Not Detected (Not Detect); Barbiturates, Urine Not Detected (Not Detect); Benzodiazepines Screen Urine Not Detected (Not Detect); Buprenorphine Scr Not Detected (Not Detect); Cannabinoid Screen Urine POSITIVE (Not Detect); Cocaine Screen Urine Not Detected (Not Detect); Fentanyl, urine Not Detected (Not Detect); Methadone Screen, Urine Not Detected (Not Detect); Opiate Screen Urine Not Detected (Not Detect); Oxycodone Screen Urine Not Detected (Not Detect); Phencyclidine Screen Urine Not Detected (Not Detect)
[2024-02-07] MEDS: LORazepam 2 MG/ML VIAL 0.5 MG IVPUSH ×4 (02:31→23:07)
[2024-02-07] MEDS: Pantoprazole Sodium 40 MG/10 ML VIAL IVPUSH (05:41)
[2024-02-07 06:37] LABS: Anion Gap 14 (12-20); Blood Urea Nitrogen 28 mg/dL (9-16); Calcium 9.1 mg/dL (8.4-10.2); Carbon Dioxide 26 mmol/L (22-29); Chloride 101 mmol/L (96-108); Creatinine Clr Calc Pharmacy 73.5; Estimated Glomerular Filt Rate 53; Glucose Random 119 mg/dL (60-115); Potassium 3.8 mmol/L (3.3-5.1); Sodium 137 mmol/L (135-145)
[2024-02-07 07:07] LABS: Hematocrit 32.3 % (42.0-52.0); Hemoglobin 11.2 g/dl (14.0-18.0); Mean Corpuscular HGB Conc 34.7 g/dl (31.0-36.0); Mean Corpuscular Hemoglobin 29.4 pg (27.0-33.0); Mean Corpuscular Volume 84.8 fL (80.0-98.0); Mean Platelet Volume 10.4 fL (9.4-12.4); Platelet Count 213 X10*3/uL (160-400); Red Blood Count 3.81 X10*6/uL (4.60-5.80); Red Cell Distribution Width 12.1 % (11.0-16.0); White Blood Count 6.8 X10*3/uL (4.8-10.8)
[2024-02-07 07:19] VITALS: BP 162/74; PULSE 72; RESP 16; TEMP 36.3; O2SAT 98
[2024-02-07 07:29] LABS: Glucose, Whole Blood 126 mg/dL (60-115)
--- NOTE | 2024-02-07 08:20 | PM.PNNEP ---
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 He was seen in nephrology office for KARUNA in November 2023, lost to follow up. 02/05 [place] [facility] [place] days of nausea, vomiting, and epigastric pain with reduced PO intake. Nephrology consulted for KARUNA. at home takes jardiance, lantus, carvedilol 12.5mg PO BID, pantoprazole 20mg daily, and PRN lorazepam. Denies other known prescriptions. Reports was on amlodipine and discontinued due to blurry vision. states he does not take NSAIDs as he knows it is not good for his kidneys. BP 175/100, tachy 110s, IVP labetolol, most recent SBP in 160s pt reports he is urinating comfortably without difficulty, denies urinary symptoms/flank pain. creatinine 2.07 02/06/24, most recent creatinine prior was 1.58 on 12/20 (scanned docs), 10/31/23 was 1.51. 02/06 creatinine has improved to 1.51 with IV hydration Of note, pt had nephrology office visit in November 2023, lost to follow up. He had labs done December 2023, serum complements, ANCA and serum immunofixation unremarkable. urine total protein/creatinine ratio significantly elevated at 3.44, microalbumin/creatinine 2700, CAM positive; renal US not yet performed. he denies other symptoms outside of nausea, vomiting, fatigue and epigastric pain. states epigastric pain can be severe, comes in waves. states this has occurred before (severe epigastric pain) and was diagnosed wtih gastritis. today he denies urinary symptoms. Denies chest pain, dizziness, shortness of breath. Denies lower abdominal pain. Denies flank pain. states upper abdominal pain has significantly improved. Sates nausea persists intermittently but has improved. Physical Exam Vital Signs: Vital Signs: Last Vital Signs Temp 97.4 F 02/07/24 07:19 Pulse 72 02/07/24 07:19 Resp 16 02/07/24 07:19 BP 162/74 H 02/07/24 07:19 Pulse Ox 98 02/07/24 07:19 O2 Del Method Room Air 02/07/24 07:19 BMI result Body Mass Index 30.6 Const: General: no acute distress, alert and awake Orientation/consciousness: patient oriented x3 Neck: Neck: Yes no JVD Resp: Effort & Inspection: normal respiratory effort and able to speak in complete sentences Auscultation: clear to auscultation bilaterally Cardio: Jugular venous distension: no JVD Rate: regular rate Rhythm: regular rhythm Heart sounds: S1 normal heart sound present and S2 normal heart sound present GI: Palpation (GI): Soft to palpation and Tenderness to palpation present (GI) (tender to epigastric palpation; non-tender to lower abdominal palpation. ) : General: Yes no CVA tenderness Back/Spine/Pelvis: Back: no CVA tenderness Skin: Rashes: no rashes Neuro: General: patient oriented x3 Extrem: General: No edema Objective Data Labs 02/07/24 06:04 02/07/24 06:04 Labs: Laboratory Results - last 24 hr 02/06/24 02/06/24 02/06/24 10:43 12:43 17:24 WBC 11.7 H RBC 4.07 L Hgb 12.2 L Hct 33.7 L MCV 82.8 MCH 30.0 MCHC 36.2 H RDW 12.1 Plt Count 267 D MPV 9.6 Immature Gran % (Auto) 0.3 Neut % (Auto) 79.3 H Lymph % (Auto) 12.1 L Simpson % (Auto) 8.1 Eos % (Auto) 0.0 Baso % (Auto) 0.2 Lymph # (Auto) 1.4 Simpson # (Auto) 1.0 Eos # (Auto) 0.0 Baso # (Auto) 0.0 Abs Immat Gran (auto) 0.04 H Absolute Neuts (auto) 9.3 H Absolute Nucleated RBC 0.000 Nucleated RBC % (auto) 0.0 VBG pH 7.51 H VBG pCO2 42 VBG pO2 71 VBG HCO3 34 H VBG O2 Saturation 96.0 VBG Base Excess 11.0 Sodium 134 L Potassium 4.2 Chloride 95 L Carbon Dioxide 25 Anion Gap 18 BUN 34 H Creatinine 2.07 H Estim Creat Clear Calc 57.6 Estimated GFR 38 POC Glucose 124 H Random Glucose 200 H Calcium 9.8 Magnesium 2.5 Total Bilirubin 1.2 H AST 18 ALT 16 Alkaline Phosphatase 74 Total Protein 7.6 Albumin 4.1 Beta-Hydroxybutyrate 1.97 H Urine Opiates Screen Ur Buprenorphine Scrn Ur Oxycodone Screen Urine Methadone Screen Urine Fentanyl Screen Ur Barbiturates Screen Ur Phencyclidine Scrn Ur Amphetamines Screen U Benzodiazepines Scrn Urine Cocaine Screen U Marijuana (THC) Screen 02/06/24 02/06/24 02/07/24 20:51 21:47 06:04 WBC 6.8 RBC 3.81 L Hgb 11.2 L Hct 32.3 L MCV 84.8 MCH 29.4 MCHC 34.7 RDW 12.1 Plt Count 213 MPV 10.4 Immature Gran % (Auto) Neut % (Auto) Lymph % (Auto) [place] % (Auto) Eos % (Auto) Baso % (Auto) Lymph # (Auto) [place] # (Auto) Eos # (Auto) Baso # (Auto) Abs Immat Gran (auto) Absolute Neuts (auto) Absolute Nucleated RBC 0.000 Nucleated RBC % (auto) 0.0 VBG pH VBG pCO2 VBG pO2 VBG HCO3 VBG O2 Saturation VBG Base Excess Sodium 137 Potassium 3.8 Chloride 101 Carbon Dioxide 26 Anion Gap 14 BUN 28 H Creatinine 1.56 H Estim Creat Clear Calc 73.5 Estimated GFR 53 POC Glucose 142 H Random Glucose 119 H Calcium 9.1 D Magnesium Total Bilirubin AST ALT Alkaline Phosphatase Total Protein Albumin Beta-Hydroxybutyrate Urine Opiates Screen Not Detected Ur Buprenorphine Scrn Not Detected Ur Oxycodone Screen Not Detected Urine Methadone Screen Not Detected Urine Fentanyl Screen Not Detected Ur Barbiturates Screen Not Detected Ur Phencyclidine Scrn Not Detected Ur Amphetamines Screen Not Detected U Benzodiazepines Scrn Not Detected Urine Cocaine Screen Not Detected U Marijuana (THC) Screen POSITIVE H 02/07/24 07:24 WBC RBC Hgb Hct MCV MCH MCHC RDW Plt Count MPV Immature Gran % (Auto) Neut % (Auto) Lymph % (Auto) [place] % (Auto) Eos % (Auto) Baso % (Auto) Lymph # (Auto) [place] # (Auto) Eos # (Auto) Baso # (Auto) Abs Immat Gran (auto) Absolute Neuts (auto) Absolute Nucleated RBC Nucleated RBC % (auto) VBG pH VBG pCO2 VBG pO2 VBG HCO3 VBG O2 Saturation VBG Base Excess Sodium Potassium Chloride Carbon Dioxide Anion Gap BUN Creatinine Estim Creat Clear Calc Estimated GFR POC Glucose 126 H Random Glucose Calcium Magnesium Total Bilirubin AST ALT Alkaline Phosphatase Total Protein Albumin Beta-Hydroxybutyrate Urine Opiates Screen Ur Buprenorphine Scrn Ur Oxycodone Screen Urine Methadone Screen Urine Fentanyl Screen Ur Barbiturates Screen Ur Phencyclidine Scrn Ur Amphetamines Screen U Benzodiazepines Scrn Urine Cocaine Screen U Marijuana (THC) Screen Procedures Date of Service Date of Service: 02/07/24 Assessment & Plan Assessment and plan (1) Diabetic nephropathy: Status: Acute (2) KARUNA (acute kidney injury): Status: Acute (3) Uncontrolled hypertension: Status: Acute Plan KARUNA vs progression of underlying diabetic kidney disease likely has component of tubular injury from hypoperfusion from vomiting/reduced PO intake given improvement in creatinine with IVF recommend continuing to hold jardiance continue IVF as ordered blood pressures suboptimal, increased carvedilol to 37.5mg PO BID patient will need a renal biopsy once his acute issues are resolved avoid nephrotoxins regular blood pressure checks, daily electrolyte and renal function labs will continue to follow, will ensure pt has outpatient follow up with nephrology upon discharge Discussed with Dr Galaviz Time Spent With Patient Time: Total time managing care of this patient today ____ minutes. Progress Note: Quality Stroke Does the patient have a stroke diagnosis?: No
[2024-02-07] MEDS: carvediloL 25 MG TABLET PO (08:29)
[2024-02-07] MEDS: Escitalopram Oxalate 10 MG TABLET PO (08:29)
[2024-02-07] MEDS: Lactated Ringers 1,000 ML 100 ML IVCONT ×2 (08:30→17:40)
--- NOTE | 2024-02-07 10:17 | HO.PM.IMPN ---
Subjective Subjective Date of Service: 02/07/24 Interval History: occasional nausea, no vomitting Physical Exam Vital Signs: Vital Signs: Last Vital Signs Temp 97.4 F 02/07/24 07:19 Pulse 72 02/07/24 07:19 Resp 16 02/07/24 07:19 BP 162/74 H 02/07/24 07:19 Pulse Ox 98 02/07/24 07:19 O2 Del Method Room Air 02/07/24 07:19 BMI result Body Mass Index 30.6 Const: Other: General: AO X 3, no acute distress Resp: CTA bilateral CVS: S1,S2,RRR GI: +BS, NT, no distention Skin: No rash Neuro: motor grossly intact Psych: appropriate affect Objective Data Active Medications Acetaminophen (Acetaminophen 325 Mg Tablet) 650 mg PO Q6H PRN PRN Reason: Pain, Mild (Pain Scale 1-3), fever or headache Calcium Carbonate (Calcium Carbonate 750 Mg Tab.Chew) 750 mg PO Q4H PRN PRN Reason: Heartburn Carvedilol (Carvedilol 25 Mg Tablet) 25 mg PO BID [facility]; Protocol Last Admin: 02/07/24 08:29 Dose: 25 mg Documented By: ERIN Enoxaparin Sodium (Enoxaparin Sodium 40 Mg/0.4 Ml Syringe) 40 mg SUBCUT Q24H [facility] Last Admin: 02/06/24 14:28 Dose: 40 mg Documented By: BENJAMIN Escitalopram Oxalate (Escitalopram Oxalate 10 Mg Tablet) 10 mg PO DAILY [facility] Last Admin: 02/07/24 08:29 Dose: 10 mg Documented By: ERIN Famotidine (Famotidine 20 Mg Tablet) 20 mg PO BID [facility] Glucose (Glucose Gel 15 Gm Gel..Gram.) 15 gm PO Q15M PRN; Protocol PRN Reason: per Hypoglycemia Standing Ord. Hydromorphone HCl (Hydromorphone Hcl 0.5 Mg/0.5 Ml Syringe) 0.5 mg IVPUSH Q3H PRN; Protocol PRN Reason: Pain, Severe (Pain Scale 7-10) Last Admin: 02/06/24 22:22 Dose: 0.5 mg Documented By: MAYNOR Lactated Ringer's (Lr) 1,000 mls @ 100 mls/hr IVCONT .Q10H [facility] Last Admin: 02/07/24 08:30 Dose: 100 mls/hr Documented By: ERIN Dextrose (D10) 250 mls @ 750 mls/hr IV Q15M PRN; Protocol PRN Reason: per Hypoglycemia Standing Ord. Insulin Glargine (Insulin Glargine,Hum.Rec.Anlog 100 Unit/Ml 10 Ml Vial) 5 unit SUBCUT BEDTIME [facility] Last Admin: 02/06/24 21:58 Dose: 5 unit Documented By: MAYNOR Insulin Human Lispro (Insulin Lispro 100 Unit/Ml 3 Ml Vial) 0 unit SUBCUT QIDACHS [facility]; Protocol Last Admin: 02/07/24 07:35 Dose: Not Given Documented By: ERIN Non-Admin Reason: No Insulin Coverage Labetalol HCl (Labetalol Hcl 100 Mg/20 Ml Vial) 5 mg IVPUSH Q6H PRN PRN Reason: Sbp > 170 Lorazepam (Lorazepam 2 Mg/Ml Vial) 0.5 mg IVPUSH Q6H PRN PRN Reason: Anxiety Last Admin: 02/07/24 02:31 Dose: 0.5 mg Documented By: MAYNOR Magnesium Hydroxide (Milk Of Magnesia 30 Ml Oral.Susp) 30 ml PO DAILY PRN PRN Reason: Constipation Melatonin (Melatonin 3 Mg Tablet) 6 mg PO BEDTIME PRN PRN Reason: Insomnia Last Admin: 02/06/24 21:58 Dose: 6 mg Documented By: MAYNOR Ondansetron HCl (Ondansetron Hcl 4 Mg/2 Ml Vial) 4 mg IVPUSH Q8H PRN PRN Reason: Nausea and Vomiting Sodium Chloride (0.9 % Sodium Chloride Flush 3 Ml Syringe) 3 ml IVFLUSH QSSDFT [facility] Last Admin: 02/07/24 08:29 Dose: Not Given Documented By: ERIN Non-Admin Reason: IV Running Labs 02/07/24 06:04 02/07/24 06:04 Labs: Laboratory Results - last 24 hr 02/06/24 02/06/24 02/06/24 10:43 12:43 17:24 MCV 82.8 MCH 30.0 MCHC 36.2 H RDW 12.1 Plt Count 267 D MPV 9.6 Immature Gran % (Auto) 0.3 Neut % (Auto) 79.3 H Lymph % (Auto) 12.1 L [place] % (Auto) 8.1 Eos % (Auto) 0.0 Baso % (Auto) 0.2 Lymph # (Auto) 1.4 [place] # (Auto) 1.0 Eos # (Auto) 0.0 Baso # (Auto) 0.0 Abs Immat Gran (auto) 0.04 H Absolute Neuts (auto) 9.3 H Absolute Nucleated RBC 0.000 Nucleated RBC % (auto) 0.0 VBG pH 7.51 H VBG pCO2 42 VBG pO2 71 VBG HCO3 34 H VBG O2 Saturation 96.0 VBG Base Excess 11.0 Anion Gap 18 Estim Creat Clear Calc 57.6 Estimated GFR 38 POC Glucose 124 H Random Glucose 200 H Calcium 9.8 Magnesium 2.5 Total Bilirubin 1.2 H AST 18 ALT 16 Alkaline Phosphatase 74 Total Protein 7.6 Albumin 4.1 Beta-Hydroxybutyrate 1.97 H Urine Opiates Screen Ur Buprenorphine Scrn Ur Oxycodone Screen Urine Methadone Screen Urine Fentanyl Screen Ur Barbiturates Screen Ur Phencyclidine Scrn Ur Amphetamines Screen U Benzodiazepines Scrn Urine Cocaine Screen U Marijuana (THC) Screen 02/06/24 02/06/24 02/07/24 20:51 21:47 06:04 MCV 84.8 MCH 29.4 MCHC 34.7 RDW 12.1 Plt Count 213 MPV 10.4 Immature Gran % (Auto) Neut % (Auto) Lymph % (Auto) [place] % (Auto) Eos % (Auto) Baso % (Auto) Lymph # (Auto) [place] # (Auto) Eos # (Auto) Baso # (Auto) Abs Immat Gran (auto) Absolute Neuts (auto) Absolute Nucleated RBC 0.000 Nucleated RBC % (auto) 0.0 VBG pH VBG pCO2 VBG pO2 VBG HCO3 VBG O2 Saturation VBG Base Excess Anion Gap 14 Estim Creat Clear Calc 73.5 Estimated GFR 53 POC Glucose 142 H Random Glucose 119 H Calcium 9.1 D Magnesium Total Bilirubin AST ALT Alkaline Phosphatase Total Protein Albumin Beta-Hydroxybutyrate Urine Opiates Screen Not Detected Ur Buprenorphine Scrn Not Detected Ur Oxycodone Screen Not Detected Urine Methadone Screen Not Detected Urine Fentanyl Screen Not Detected Ur Barbiturates Screen Not Detected Ur Phencyclidine Scrn Not Detected Ur Amphetamines Screen Not Detected U Benzodiazepines Scrn Not Detected Urine Cocaine Screen Not Detected U Marijuana (THC) Screen POSITIVE H 02/07/24 07:24 MCV MCH MCHC RDW Plt Count MPV Immature Gran % (Auto) Neut % (Auto) Lymph % (Auto) [place] % (Auto) Eos % (Auto) Baso % (Auto) Lymph # (Auto) [place] # (Auto) Eos # (Auto) Baso # (Auto) Abs Immat Gran (auto) Absolute Neuts (auto) Absolute Nucleated RBC Nucleated RBC % (auto) VBG pH VBG pCO2 VBG pO2 VBG HCO3 VBG O2 Saturation VBG Base Excess Anion Gap Estim Creat Clear Calc Estimated GFR POC Glucose 126 H Random Glucose Calcium Magnesium Total Bilirubin AST ALT Alkaline Phosphatase Total Protein Albumin Beta-Hydroxybutyrate Urine Opiates Screen Ur Buprenorphine Scrn Ur Oxycodone Screen Urine Methadone Screen Urine Fentanyl Screen Ur Barbiturates Screen Ur Phencyclidine Scrn Ur Amphetamines Screen U Benzodiazepines Scrn Urine Cocaine Screen U Marijuana (THC) Screen Assessment and Plan (1) Acute gastritis: Status: Acute (2) Chronic kidney disease: Status: Acute (3) KARUNA (acute kidney injury): Status: Acute Plan Pt is a 28-year-old male with a PMH significant for?HTN, insulin-dependent type 2 diabetes, CKD2, blind in left eye, and axiety who presents to the ED with?with nausea, vomiting, and epigastric abdominal pain x2 days. Pt will be admitted to the hospital for KARUNA on CKD secondary to intractable nausea and vomiting likely secondary to anxiety/panic attack. KARUNA on CKD 2, likely related to nausea and vomitting, creatine has trended down to within his baseline. Should follow up with nephrology on outpatient basis. Cr went from 2.07 to now 1.56 Intractable nausea, vomiting, and epigastric abdominal pain--likely gastritis, vs gastroparesis. Improved with IVF, protonix and antiemetic. Advance diet Uncontrolled anxiety Patient extremely anxious Recently stopped hydroxyzine due to blurry vision Does not have outpatient mental health care at the moment Continue escitalopram Ativan p.r.n. Hypertension, uncontrolled. Added Norvasc to Coreg, and outpatient follow up for further med adjustment Insulin-dependent type 2 diabetes Hold Jardiance for now due to reduced p.o. intake Will place on sliding scale insulin Continue Lantus at 50% Full Code DVT Prophylaxis: Lovenox Pt will require a hospitalization of at least two nights for treatment of?KARUNA on CKD in the setting of intractable nausea, vomiting, abdominal pain likely secondary to anxiety/panic attack. Quality Stroke Does the patient have a stroke diagnosis?: No VTE Prior VTE?: No VTE Risk Level:: Medical - moderate - high VTE Device Contraindication: Treatment Not Indicated VTE Drug Contraindication: N/A - Med Ordered
--- NOTE | 2024-02-07 10:27 | P.DS_ITS ---
DS: Providers Provider Date of Service: 02/08/24 Date of admission: 02/06/24 17:44 Date of discharge: 02/08/24 Primary care physician: CARL Gibbons Consults: 02/06/24 13:34 Consult to Nephrology Routine Consulting Provider: [facility] [place] [facility] Reason for consultation: KARUNA on CKD, pt has not yet followed up in office DS: Diagnosis Discharge Diagnosis (1) Acute gastritis: Status: Acute (2) Chronic kidney disease: Status: Acute (3) KARUNA (acute kidney injury): Status: Acute DS: Summary Hospital Course Hospital Course: Admission hpi Chief Complaint: N/V, weakness Pt is a 28-year-old male with a PMH significant for?HTN, insulin-dependent type 2 diabetes, CKD2, blind in left eye, and axiety who presents to the ED with?with nausea, vomiting, and epigastric abdominal pain x2 days. Patient reports has not been able to keep anything down since Saturday. Has been experiencing sharp and stabbing epigastric pain, as well as 1-2 episodes of diarrhea yesterday. No hematemesis or hematochezia. Lize is at bed side and states pt ?passed out? earlier this morning while returning from the bathroom. The patient, however, reports felt lightheaded, dizzy, and weak and slumped to the floor. The patient denies loss of consciousness. No headstrike. Patient also complains of increasing anxiety. Patient has had insurance issues recently and relatively noncompliant with outpatient care. Was supposed to follow with Nephrology after last admission here at [facility] [place] but has yet to do so. Has not yet established with outpatient psychiatric care and currently only on Lexapro. Reports previously was on hydralazine but stopped taking that after noticed blurry vision in his right eye. Patient also notes this is his 3rd hospital admission for similar symptoms in the past 4 months: Was admitted in October at [facility] [place] and in December at [facility] [place]. In the ED pt was tachycardic up to 1 and hypertensive up to 175/100. Labs were significant for leukocytosis 0.7, sodium 134, BUN 34 , creatinine 2.07 (elevated from 1.51 on 10/31/2023), and beta hydroxybutyrate 1.97. EKG demonstrated sinus tachycardia of 107 without evidence of significant ST elevations or depressions. Pt was treated with Protonix, Maalox, ondansetron, Ativan, and IVF. Pt will be admitted to the hospital for KARUNA on CKD secondary to intractable nausea and vomiting likely secondary to anxiety/panic attack. Hospital course: KARUNA on CKD 2, likely related to nausea and vomitting, creatine has trended down to within his baseline. Should follow up with nephrology on outpatient basis. Cr went from 2.07 to now 1.23 Intractable nausea, vomiting, and epigastric abdominal pain--likely gastritis, vs gastroparesis. Improved with IVF, protonix and antiemetic. Diet advanced, tolerating Anxiety- Continue escitalopram Outpatient therapy Hypertension, uncontrolled. Added Norvasc to Coreg, and outpatient follow up for further med adjustment Insulin-dependent type 2 diabetes resume home meds Time Attestation Discharge Coordination Time (in mins): 35 Quality: Safe Use of Opioids Does Pt have an Active Cancer Diagnosis on the Problem List?: No Quality: Stroke Does the patient have a stroke diagnosis?: No Physical Exam Vital Signs: Vital Signs: Selected Entries 02/08/24 07:34 Temperature 98.8 F Pulse Rate 72 Respiratory Rate 18 Blood Pressure 172/81 H Pulse Oximetry 100 Oxygen Delivery Me thod Room Air Const: Other: General: AO X 3, no acute distress Resp: CTA bilateral CVS: S1,S2,RRR GI: +BS, NT, no distention Skin: No rash Neuro: motor grossly intact Psych: appropriate affect DS: Data Data Completed and Pending Labs on day of discharge: Laboratory Tests 02/06/24 02/07/24 02/08/24 10:43 06:04 05:51 Creatinine 2.07 H 1.56 H 1.29 Discharge Plan Discharge Anticipated Discharge Date/Time: 02/07/24 09:54 Patient Disposition: Home, Self-Care Discharge Diagnosis: Gastritis, KARUNA, uncontrolled blood pressure Referrals: [place],Leanne, COLLATOR HAND [Primary Care Provider] - 1 Week Discharge Medications: New amlodipine 5 mg Tablet 5 mg PO DAILY Qty: 90 0RF Protocol: Hold for SBP< HOLD for SBP < : 90 Continued pantoprazole 20 mg tablet,delayed release (DR/EC) 20 mg PO DAILY carvedilol 25 mg tablet 25 mg PO BID insulin glargine [Lantus Solostar U-100 Insulin] 100 unit/mL (3 mL) insulin pen 10 unit subcut BEDTIME Jardiance 10 mg tablet 10 mg PO DAILY escitalopram oxalate 5 mg tablet 10 mg PO DAILY Discharge Orders: Discharge Order (Routine); Ordered 02/08/24 Ordered By: Atul Trinh Diet: Advance to usual diet Activity on Discharge: As tolerated Stand Alone Forms: Patient Portal Discharge page Print Language: Georgian Care Plan Goals: recovery from nausea and vomiting d/t gastritis, gastroparesis Health Concerns: Nausea and vomiting Gastritis Diabetes gastroparesis Plan of Treatment: take pepcid and reglan as directed norvasc is started to better control your blood pressure Assessment: see above
[2024-02-07 11:15] LABS: Glucose, Whole Blood 167 mg/dL (60-115)
[2024-02-07 11:56] VITALS: BP 180/93
[2024-02-07] MEDS: amLODIPine Besylate 5 MG TABLET PO (11:56)
[2024-02-07 11:58] VITALS: BP 180/93; PULSE 78
[2024-02-07] MEDS: Insulin Lispro 100 UNIT/ML 3 ML VIAL SUBCUT ×2 (11:59→21:33)
--- NOTE | 2024-02-07 12:50 | MHC.CM.PN ---
SPE[employer] EVENTS [employer]ANNER AND CM MET WITH PT AT BEDSIDE PT LIVES WITH FAMILY AT HOME PT RECEICES NO SERVICES PT DOES NOT USE DME PT'S HCP IS S/O. JESSENIA COLE [phone] PCP [facility] PT'S INS IS MEDICAID PT DCP HOME VS HOME W/ SERVICES VIA PRIVATE TRANSPORT
[2024-02-07 13:07] VITALS: BP 179/81
[2024-02-07] MEDS: Enoxaparin Sodium 40 MG/0.4 ML SYRINGE SUBCUT (14:06)
[2024-02-07 15:08] VITALS: BP 175/87; PULSE 81; RESP 16; TEMP 37.3; O2SAT 98
[2024-02-07 16:11] LABS: Glucose, Whole Blood 148 mg/dL (60-115)
[2024-02-07 19:24] VITALS: BP 168/90; PULSE 75; RESP 18; TEMP 36.4; O2SAT 99
[2024-02-07] MEDS: Famotidine 20 MG TABLET PO (20:11)
[2024-02-07] MEDS: carvediloL 12.5 MG TABLET 37.5 MG PO (20:11)
[2024-02-07] MEDS: Insulin Glargine,Hum.rec.anlog 100 UNIT/ML 10 ML VIAL SUBCUT (20:14)
[2024-02-07 20:32] LABS: Glucose, Whole Blood 169 mg/dL (60-115)
[2024-02-07] MEDS: Melatonin 3 MG TABLET 6 MG PO (21:34)
[2024-02-08 03:39] VITALS: BP 159/79; PULSE 76; RESP 16; TEMP 36.6; O2SAT 99
[2024-02-08] MEDS: Lactated Ringers 1,000 ML 100 ML IVCONT (04:37)
[2024-02-08] MEDS: Acetaminophen 325 MG TABLET 650 MG PO (06:22)
[2024-02-08 06:58] LABS: Anion Gap 12 (12-20); Blood Urea Nitrogen 21 mg/dL (9-16); Carbon Dioxide 27 mmol/L (22-29); Chloride 104 mmol/L (96-108); Creatinine Clr Calc Pharmacy 88.9; Estimated Glomerular Filt Rate > 60; Glucose Random 124 mg/dL (60-115); Potassium 3.9 mmol/L (3.3-5.1); Sodium 139 mmol/L (135-145)
[2024-02-08 07:34] VITALS: BP 172/81; PULSE 72; RESP 18; TEMP 37.1; O2SAT 100
[2024-02-08 07:56] LABS: Glucose, Whole Blood 165 mg/dL (60-115)
[2024-02-08 07:56] LABS: Glucose, Whole Blood 116 mg/dL (60-115)
[2024-02-08] MEDS: Insulin Lispro 100 UNIT/ML 3 ML VIAL SUBCUT (08:19)
[2024-02-08] MEDS: Famotidine 20 MG TABLET PO (08:19)
[2024-02-08] MEDS: Escitalopram Oxalate 10 MG TABLET PO (08:19)
[2024-02-08] MEDS: carvediloL 12.5 MG TABLET 37.5 MG PO (08:19)
[2024-02-08] MEDS: amLODIPine Besylate 5 MG TABLET PO (08:19)
[2024-02-08] MEDS: 0.9 % Sodium Chloride Flush 3 ML SYRINGE IVFLUSH (08:20)
[2024-02-08] MEDS: LORazepam 1 MG TABLET PO (08:37)
--- NOTE | 2024-02-08 08:42 | MHC.CM.PN ---
pt dcd home self care
[2024-02-08 10:01] VITALS: BP 169/83; PULSE 73; RESP 18; O2SAT 99
== END 2024-02-08 11:07 | disposition home or self-care (01) | DRG 241 ==
LOC: HO.ED 14:59 → HO.EDOVER 17:45 → HO.S3 19:38
PROVIDERS: Nurse Practitioner Family; Physician Assistant Medical; Admitting Provider Student in an Organized Health Care Education/Training Program; Emergency Provider Student in an Organized Health Care Education/Training Program; PCP Registered Nurse; Visit Provider Internal Medicine
DX: K29.00 Acute gastritis without bleeding (principal); N17.9 Acute kidney failure, unspecified; E11.22 Type 2 diabetes mellitus with diabetic chronic kidney disease; E11.43 Type 2 diabetes mellitus with diabetic autonomic (poly)neuropathy; K31.84 Gastroparesis; H54.62 Unqualified visual loss, left eye, normal vision right eye; F41.0 Panic disorder [episodic paroxysmal anxiety]; N18.2 Chronic kidney disease, stage 2 (mild); I12.9 Hypertensive chronic kidney disease with stage 1 through stage 4 chronic kidney disease, or unspecified chronic kidney disease; Z79.4 Long term (current) use of insulin; Z79.84 Long term (current) use of oral hypoglycemic drugs; Z79.899 Other long term (current) drug therapy
CPT/HCPCS: 36415; 80048; 80053; 80307; 82010; 82803; 82947; 83735; 85025; 85027; 93005; 99285; J0737; J1171; J1650; J2060; J2405; J2470; J7120

== ENCOUNTER → 2024-02-06 10:25 | Outpatient (BNV) | payer MEDICAID, SELFPAY | PROVIDERS: Admitting Provider Student in an Organized Health Care Education/Training Program; Emergency Provider Student in an Organized Health Care Education/Training Program; PCP Registered Nurse; Visit Provider Internal Medicine Cardiovascular Disease | DX: R07.9 Chest pain, unspecified (principal) | CPT/HCPCS: 93010 ==

== ENCOUNTER → 2024-02-06 11:32 | Outpatient (BNV) | payer MEDICAID, SELFPAY | PROVIDERS: Emergency Provider Student in an Organized Health Care Education/Training Program; PCP Registered Nurse; Visit Provider Nurse Practitioner Family | DX: N17.9 Acute kidney failure, unspecified (principal); I12.9 Hypertensive chronic kidney disease with stage 1 through stage 4 chronic kidney disease, or unspecified chronic kidney disease; E11.22 Type 2 diabetes mellitus with diabetic chronic kidney disease; N18.2 Chronic kidney disease, stage 2 (mild) | CPT/HCPCS: 99222; 99232 ==

== ENCOUNTER → 2024-02-06 17:44 | Outpatient (BNV) | payer MEDICAID, SELFPAY | PROVIDERS: Admitting Provider Student in an Organized Health Care Education/Training Program; Emergency Provider Student in an Organized Health Care Education/Training Program; PCP Registered Nurse; Visit Provider Student in an Organized Health Care Education/Training Program | DX: N17.9 Acute kidney failure, unspecified (principal); N18.2 Chronic kidney disease, stage 2 (mild); K29.00 Acute gastritis without bleeding | CPT/HCPCS: 99223; 99232 ==

== ENCOUNTER 2024-02-25 12:03 | Inpatient (IN) | payer MEDICAID, SELFPAY ==
[2024-02-25] VITALS (9 sets, daily range): BP systolic 133–215; BP diastolic 50–98; PULSE 75–118; RESP 14–18; TEMP 36.7–37.2; O2SAT 94–100; BMI 34.5; BMI 32.9
--- NOTE | 2024-02-25 | ECG_ITS ---
Test Reason : chest pain Blood Pressure : / mmHG Vent. Rate : 082 BPM Atrial Rate : 082 BPM P-R Int : 120 ms QRS Dur : 094 ms QT Int : 358 ms P-R-T Axes : 058 052 071 degrees QTc Int : 418 ms Normal sinus rhythm Normal ECG When compared with ECG of 06-FEB-2024 10:19, No significant change was found Referred By: Generic ED Physician Electronically Signed By:Marcus Valdes
[2024-02-25 12:24] LABS: Basophils Percent Auto 0.4 % (0-2); Eosinophils Absolute Auto 0.1 X10*3/uL (0.0-0.4); Eosinophils Percent Auto 0.5 % (0-4); Hematocrit 32.5 % (42.0-52.0); Hemoglobin 11.7 g/dl (14.0-18.0); Imm Gran Abs Auto 0.03 X10*3/uL (0.00-0.03); Imm Gran Pct Auto 0.3 % (0.0-0.4); Lymphocytes Absolute Auto 0.9 X10*3/uL (1.2-4.9); Lymphocytes Percent Auto 7.8 % (20-40); MANUAL DIFF FLAG NO; Mean Corpuscular Hemoglobin 30.4 pg (27.0-33.0); Mean Corpuscular Volume 84.4 fL (80.0-98.0); Mean Platelet Volume 9.7 fL (9.4-12.4); Monocytes Absolute Auto 0.3 X10*3/uL (0.1-1.2); Monocytes Percent Auto 2.7 % (2-11); Neutrophils Absolute Auto 9.6 x10*3/uL (2.0-8.3); Neutrophils Percent Auto 88.3 % (45-73); Platelet Count 249 X10*3/uL (160-400); Red Blood Count 3.85 X10*6/uL (4.60-5.80); Red Cell Distribution Width 12.3 % (11.0-16.0); White Blood Count 10.8 X10*3/uL (4.8-10.8)
[2024-02-25] MEDS: Labetalol HCL 100 MG/20 ML VIAL IVPUSH (12:33)
[2024-02-25 12:45] LABS: Alanine Aminotransferase 13 U/L (0-40); Albumin Level 4.1 g/dL (3.5-5.0); Alkaline Phosphatase 86 U/L (39-117); Anion Gap 13 (12-20); Aspartate Amino Transferase 18 U/L (5-37); Bilirubin Direct 0.1 mg/dL (0.0-0.5); Bilirubin Total 0.7 mg/dL (0.0-1.0); Blood Urea Nitrogen 24 mg/dL (9-16); Calcium 9.7 mg/dL (8.4-10.2); Carbon Dioxide 27 mmol/L (22-29); Chloride 104 mmol/L (96-108); Creatinine Clr Calc Pharmacy 72.7; Estimated Glomerular Filt Rate 49; Glucose Random 258 mg/dL (60-115); Lipase 21 U/L (8-78); Magnesium 2.3 mg/dL (1.6-2.6); Potassium 4.1 mmol/L (3.3-5.1); Sodium 140 mmol/L (135-145); Total Protein 7.5 g/dL (6.5-8.0)
[2024-02-25 12:50] LABS: Troponin-I High Sensitivity < 2.7 ng/L (<3.5-35.0)
[2024-02-25 13:01] LABS: Influenza A PCR NEGATIVE (Negative); Influenza B PCR NEGATIVE (Negative); Resp Syncy Virus RNA Qual PCR NEGATIVE (Negative); SARS COV2 PCR INHOUSE NEGATIVE (Negative)
[2024-02-25] MEDS: 0.9 % Sodium Chloride 1,000 ML 999 ML IV (13:08)
[2024-02-25 13:15] LABS: Glucose, Whole Blood 209 mg/dL (60-115)
--- NOTE | 2024-02-25 13:16 | PC.NURSE ---
pt presents to ED via EMS complaining of epigastric pain w/ associated nonbloody n/v x this morning. pt endorses sudden onset nonradiating substernal chest pain during transport. pt appears disheveled, wailing and moaning, grunting, and tensing all extremities on exam room stretcher IV access was established and basic labs were obtained pt was noted to be hypertensive on arrival MD Shipman to bedside- pt given 5mg labetalol healthcare translator applied. pt does have hx of DM for which he stated he did not take his meds today pt sts that he has had these episodes in the past but they dont know what it is Pt called this nurse to room pt personal cgm reading 52 pt then began grunting hyperventilating, and flailing extremities. attempted to academic coach pt with pursed lip breathing. encouraged pt to slow breathing. POC blood glucose obtained-poc 209 notified 1L IVF initiated per order.
--- NOTE | 2024-02-25 13:39 | PC.NURSE ---
notified via [employer] connect pt reqeusts analgesia at this time
--- NOTE | 2024-02-25 13:43 | ED.ABDPAIN ---
HPI - Abdominal Pain General Chief Complaint: Abdominal Pain Stated Complaint: ABD PAIN,N/V,CP PER EMS Time Seen by Provider: 02/25/24 12:23 Source: patient Mode of arrival: EMS History of Present Illness ED Provider: Umberto HPI narrative: 28-year-old male who presents via EMS with epigastric pain that he has had several times before, patient is also diabetic, denies any alcohol use but does engage in cannabis use he also reports nausea, vomiting but denies any fevers or chills, states he was not able to take his medication this morning Related Data Home Medications ?Medication ?Instructions ?Recorded ?Confirmed empagliflozin 10 mg tablet 10 mg PO DAILY 10/29/23 02/06/24 (Jardiance) insulin glargine 100 unit/mL (3 10 unit subcut BEDTIME 10/29/23 02/06/24 mL) subcutaneous pen (Lantus Solostar U-100 Insulin) escitalopram oxalate 5 mg tablet 10 mg PO DAILY 11/29/23 02/06/24 carvedilol 25 mg tablet 25 mg PO BID 02/06/24 02/06/24 pantoprazole 20 mg tablet,delayed 20 mg PO DAILY 02/06/24 02/06/24 release Previous Rx's ?Medication ?Instructions ?Recorded amlodipine 5 mg tablet 5 mg PO DAILY #90 tabs 02/07/24 ondansetron 4 mg disintegrating 4 mg PO Q8H PRN nausea and 02/25/24 tablet vomiting #10 tabs Allergies Allergy/AdvReac Type Severity Reaction Status Date / Time No Known Allergies Allergy Verified 02/25/24 12:08 [No Known Allergies*] Review of Systems Review of Systems Pertinent positives and negatives as stated in HPI PMFSH Past Medical History Source: nursing notes reviewed Medical History ADHD Generalized anxiety disorder Type 2 diabetes mellitus Cannabis hyperemesis syndrome concurrent with and due to cannabis dependence Hypertension Surgical History History of eye surgery (~06/2022) Social History Social History Household Members: Family Housing: Apartment Do you presently have visiting nurse or other home services: No Patient Tobacco Use Status: Never used Tobacco Smoked in Last 30 Days: Yes e-Cigarette/Vaping Use: Never Used Second Hand Smoke Exposure: No (N/A) Use of substances other than those prescribed or required for medical reasons: Yes Substance Use Type: Marijuana Advance Directives: No Advance Directives Information Provided: Yes Do you have a plan to hurt others: No Plan service: No Physical Exam ED Vital Signs: Vital Signs - 24 hr 02/25/24 12:13 02/25/24 12:33 02/25/24 12:55 Temperature 98.1 F Pulse Rate 76 88 95 Respiratory Rate 14 18 Blood Pressure 215/98 H 199/87 H 195/91 H Pulse Oximetry 100 100 Oxygen Delivery Method Room Air Room Air 02/25/24 14:00 Temperature 98.4 F Pulse Rate 77 Respiratory Rate 18 Blood Pressure 133/50 L Pulse Oximetry 95 Oxygen Delivery Method Room Air BMI result Body Mass Index 34.5 VITAL SIGNS: Reviewed. GENERAL: Well developed, well nourished, in no acute distress. HEAD: Normocephalic/atraumatic EYES: PERRLA, EOMI LUNGS: Normal breath sounds. No adventitious sounds or accessory muscle use. SpO2<100> CARDIOVASCULAR: Regular rate and rhythm without noted murmurs ABDOMEN: Soft, non-tender, non-distended with bowel sounds. MUSCULOSKELETAL: No tenderness, deformities, or effusions noted on gross inspection. EXTREMITIES: No cyanosis, clubbing or edema. SKIN: Inspection of the skin reveals no rashes NEUROLOGIC: Alert and oriented x 4. Strength and sensation to light touch were grossly intact x 4. Medical Decision Making Medical Decision Making MDM Narrative: 28-year-old male with history and clinical presentation, DD DX: Noted to be hypertensive and received 5 mg of labetalol via IV, also received antiemetics and IV fluids. I reviewed interpreted all investigations and there is no infectious leukocytosis, there is a stable anemia and no thrombocytopenia. There is an KARUNA which is likely secondary to patient's dehydration in combination with nausea and vomiting, he received IV fluids as well as medication for both his blood pressure as well as his nausea and vomiting. There is hyperglycemia without evidence of DKA or HHS. Liver enzymes are otherwise within normal limits and urine is not indicative of UTI. Viral testing is negative for COVID-19/flu/RSV. INTERVENTION: IVF, haldol, zofran, Labetalol, Ativan, Toradol, Pepcid Patient did not tolerate GI cocktail and carafate. Will admit for intractable vomiting and KARUNA, I discussed with inpatient hospitalist who agrees to admission. Differential Diagnosis Differential Diagnoses: The differential diagnosis associated with the presentation includes See above Admission/Observation Consideration of admission/observation: Escalation of care including admission/observation considered Does not meet inpatient level of care Lab Data MDM Lab Attestation statement: I reviewed the patient's lab results. See above 02/25/24 12:19 02/25/24 12:19 Labs: Lab Results 02/25/24 02/25/24 02/25/24 Range/Units 12:19 13:10 13:32 WBC 10.8 (4.8-10.8) X10*3/uL RBC 3.85 L (4.60-5.80) X10*6/uL Hgb 11.7 L (14.0-18.0) g/dl Hct 32.5 L (42.0-52.0) % MCV 84.4 (80.0-98.0) fL MCH 30.4 (27.0-33.0) pg MCHC 36.0 (31.0-36.0) g/dl RDW 12.3 (11.0-16.0) % Plt Count 249 (160-400) X10*3/uL MPV 9.7 (9.4-12.4) fL Immature Gran % (Auto) 0.3 (0.0-0.4) % Neut % (Auto) 88.3 H (45-73) % Lymph % (Auto) 7.8 L (20-40) % [place] % (Auto) 2.7 (2-11) % Eos % (Auto) 0.5 (0-4) % Baso % (Auto) 0.4 (0-2) % Lymph # (Auto) 0.9 L (1.2-4.9) X10*3/uL [place] # (Auto) 0.3 (0.1-1.2) X10*3/uL Eos # (Auto) 0.1 (0.0-0.4) X10*3/uL Baso # (Auto) 0.0 (0.0-0.2) X10*3/uL Abs Immat Gran (auto) 0.03 (0.00-0.03) X10*3/uL Absolute Neuts (auto) 9.6 H (2.0-8.3) x10*3/uL Absolute Nucleated RBC 0.000 (0.0-0.012) X10*3/uL Nucleated RBC % (auto) 0.0 (0.0-0.2) /100WBC Sodium 140 (135-145) mmol/L Potassium 4.1 (3.3-5.1) mmol/L Chloride 104 (96-108) mmol/L Carbon Dioxide 27 (22-29) mmol/L Anion Gap 13 (12-20) BUN 24 H (9-16) mg/dL Creatinine 1.67 H (0.5-1.4) mg/dL Estim Creat Clear Calc 72.7 Estimated GFR 49 POC Glucose 209 H (60-115) mg/dL Random Glucose 258 H (60-115) mg/dL Calcium 9.7 D (8.4-10.2) mg/dL Magnesium 2.3 (1.6-2.6) mg/dL Total Bilirubin 0.7 (0.0-1.0) mg/dL Direct Bilirubin 0.1 (0.0-0.5) mg/dL AST 18 (5-37) U/L ALT 13 (0-40) U/L Alkaline Phosphatase 86 (39-117) U/L Troponin I High Sens < 2.7 D (<3.5-35.0) ng/L Total Protein 7.5 (6.5-8.0) g/dL Albumin 4.1 (3.5-5.0) g/dL Lipase 21 (8-78) U/L Urine Color Yellow Urine Appearance Clear Urine pH 6.5 (5.0-9.0) Ur Specific [place] >= 1.030 H (1.005-1.025) Urine Protein 300 (3+) H (Neg-Trace) mg/dL Urine Glucose (UA) >=1000 H (Negative) mg/dL Urine Ketones Trace (Negative) mg/dL Urine Blood Moderate (2+) H (Negative) Urine Nitrite Negative (Negative) Ur Leukocyte Esterase Negative (Negative) Urine RBC >20 H (0-2) /HPF Urine WBC 0-5 (0-5) /HPF Ur Squamous Epith Cells 0-2 (0-2) /HPF Urine Bacteria None Seen (None Seen) Hyaline Casts 0-2 (0-2) /LPF Urine Opiates Screen Not Detected (Not Detect) Ur Buprenorphine Scrn Not Detected (Not Detect) ng/mL Ur Oxycodone Screen Not Detected (Not Detect) ng/mL Urine Methadone Screen Not Detected (Not Detect) ng/mL Urine Fentanyl Screen Not Detected (Not Detect) Ur Barbiturates Screen Not Detected (Not Detect) Ur Phencyclidine Scrn Not Detected (Not Detect) Ur Amphetamines Screen Not Detected (Not Detect) U Benzodiazepines Scrn Not Detected (Not Detect) Urine Cocaine Screen Not Detected (Not Detect) U Marijuana (THC) Screen POSITIVE H (Not Detect) Influenza Type A (PCR) NEGATIVE (Negative) Influenza Type B (PCR) NEGATIVE (Negative) RSV RNA Qual (PCR) NEGATIVE (Negative) SARS-CoV-2 RNA (RT-PCR) NEGATIVE (Negative) External Record Review External record reviewed: Outside ED record Chronic Conditions Patient?s care impacted by: Hypertension Medications Administered Discontinued Medications Generic Name Dose Route Start Last Admin Trade Name Freq PRN Reason Stop Dose Admin Al Hydroxide/Mg Hydroxide 30 ml 02/25/24 15:31 02/25/24 15:35 Magnesium Hydrox/Alum Hydrox 30 Ml Oral.Susp PO 02/25/24 15:32 30 ml ONCE ONE Administration Famotidine 20 mg 02/25/24 13:47 02/25/24 13:57 Famotidine/Pf 20 Mg/2 Ml Vial IVPUSH 02/25/24 13:48 20 mg ONCE ONE Administration Sodium Chloride 1,000 mls @ 999 mls/hr 02/25/24 13:15 02/25/24 14:36 Ns IV 02/25/24 14:15 Infused .Q1H1M PRIYANKA Infusion Ketorolac Tromethamine 15 mg 02/25/24 13:47 02/25/24 13:58 Ketorolac Tromethamine 30 Mg/Ml Vial IVPUSH 02/25/24 13:48 15 mg ONCE ONE Administration Labetalol HCl 5 mg 02/25/24 12:24 02/25/24 12:33 Labetalol Hcl 100 Mg/20 Ml Vial IVPUSH 02/25/24 12:25 5 mg ONCE ONE Administration Lidocaine HCl 10 ml 02/25/24 15:31 02/25/24 15:35 Lidocaine Hcl Viscous 2 % 15 Ml Solution MUCOUS MEM 02/25/24 15:32 10 ml ONCE ONE Administration Lorazepam 0.5 mg 02/25/24 13:45 02/25/24 13:57 Lorazepam 2 Mg/Ml Vial IVPUSH 02/25/24 13:46 0.5 mg ONCE ONE Administration Sucralfate 1 gm 02/25/24 15:31 02/25/24 15:35 Sucralfate Oral Suspension 1 Gm/10 Ml Oral.Susp PO 02/25/24 15:32 1 gm ONCE ONE Administration Discharge Plan Discharge Clinical Impression: Cyclical vomiting, Hypertension, KARUNA (acute kidney injury), Cannabis use disorder Patient Disposition: Admitted As Inpatient Prescriptions: New ondansetron 4 mg tablet,disintegrating 4 mg PO Q8H PRN (Reason: nausea and vomiting) Qty: 10 0RF No Action pantoprazole 20 mg tablet,delayed release (DR/EC) 20 mg PO DAILY carvedilol 25 mg tablet 25 mg PO BID amlodipine 5 mg Tablet 5 mg PO DAILY Qty: 90 0RF Protocol: Hold for SBP< HOLD for SBP < : 90 insulin glargine [Lantus Solostar U-100 Insulin] 100 unit/mL (3 mL) insulin pen 10 unit subcut BEDTIME Jardiance 10 mg tablet 10 mg PO DAILY escitalopram oxalate 5 mg tablet 10 mg PO DAILY Referrals: Ottoniel,Leanne, [employer] [Primary Care Provider] - Print Language: Bolivian
[2024-02-25 13:44] LABS: Appearance Urine Clear; Color Urine Yellow; Glucose Urine UA >=1000 mg/dL (Negative); Leukocyte Esterase Urine Negative (Negative); Nitrite Urine Negative (Negative); PH 6.5 (5.0-9.0); Specific Gravity - Urine >= 1.030 (1.005-1.025); UMIC TRIGGER UACC YES; Urine Blood Moderate (2+) (Negative); Urine Ketones Trace mg/dL (Negative); Urine Protein 300 (3+) mg/dL (Neg-Trace)
[2024-02-25 13:49] LABS: Bacteria Urine None Seen (None Seen); Hyaline Casts Urine 0-2 /LPF (0-2); RBC Urine >20 /HPF (0-2); Squamous Epithelial Cell Urine 0-2 /HPF (0-2); WBC Urine 0-5 /HPF (0-5)
[2024-02-25 13:51] LABS: Amphetamine Screen Urine Not Detected (Not Detect); Barbiturates, Urine Not Detected (Not Detect); Benzodiazepines Screen Urine Not Detected (Not Detect); Buprenorphine Scr Not Detected (Not Detect); Cannabinoid Screen Urine POSITIVE (Not Detect); Cocaine Screen Urine Not Detected (Not Detect); Fentanyl, urine Not Detected (Not Detect); Methadone Screen, Urine Not Detected (Not Detect); Opiate Screen Urine Not Detected (Not Detect); Oxycodone Screen Urine Not Detected (Not Detect); Phencyclidine Screen Urine Not Detected (Not Detect)
[2024-02-25] MEDS: Famotidine/PF 20 MG/2 ML VIAL IVPUSH (13:57)
[2024-02-25] MEDS: LORazepam 2 MG/ML VIAL 0.5 MG IVPUSH ×2 (13:57→19:00)
[2024-02-25] MEDS: Ketorolac Tromethamine 30 MG/ML VIAL 15 MG IVPUSH ×2 (13:58→19:03)
--- NOTE | 2024-02-25 15:25 | PC.NURSE ---
no further episodes of vomiting since medication administration- pt appears to be sleeping, blanket provided- call marlow within reach
[2024-02-25] MEDS: Sucralfate Oral Suspension 1 GM/10 ML ORAL.SUSP PO (15:35)
[2024-02-25] MEDS: Magnesium Hydrox/Alum Hydrox 30 ML ORAL.SUSP PO (15:35)
[2024-02-25] MEDS: Lidocaine HCl Viscous 2 % 15 ML SOLUTION 10 ML MUCOUS MEM (15:35)
--- NOTE | 2024-02-25 15:53 | PM.IMHP ---
History of Present Illness Date of Service: 02/25/24 Attending physician on admission: Taras Aldana Chief Complaint: Intractable N/V Pt is a 28-year-old male with a PMH significant for?HTN, insulin-dependent type 2 diabetes, CKD 2, blind in left eye, cyclic vomiting syndrome, and anxiety who presents to the ED with?intractable nausea and vomiting since this morning. Patient reports he has been unable to tolerate any p.o. intake. Also complains of epigastric ?gripping and squeezing? pain/sensation that began sometime after N/V started. Additionally, patient has been experiencing significantly increased anxiety today. Denies diarrhea. No hematemesis or hematochezia. Denies headache or lightheadedness or dizziness. Of note, this is patient's 4th hospitalization for similar symptoms in the past 4 months. Was admitted in December at [facility] and in December and earlier in February here at [facility]. Patient states he is trying to cut back on marijuana, currently down to smoking 1-2 times daily mostly prior to bedtime. Patient also has a history of significant anxiety and reports has not yet been able to establish psychiatric care. In the ED pt was hypertensive up to 04/18/1989 vitals otherwise stable and WNL. Labs were significant for elevated creatinine at 1.67 (baseline around 1.30) and random glucose 258, otherwise grossly unremarkable and around baseline for patient. Stable normocytic anemia of 11.7/32.5. No significant electrolyte abnormalities. Troponin negative. Hepatic function WNL. UA negative for UTI. Tox screen positive for marijuana. EKG demonstrated normal sinus rhythm without evidence of significant ST elevations or depressions. Pt was treated with labetalol, IVF, Protonix, Ativan, ketorolac, and GI cocktail. Pt will be admitted to the hospital for treatment and further evaluation of KARUNA on CKD secondary to intractable nausea and vomiting likely secondary to cannabis hyperemesis syndrome. Review of Systems Review of Systems: Negative except for that which is stated in the [facility] Medical History ADHD Generalized anxiety disorder Type 2 diabetes mellitus Cannabis hyperemesis syndrome concurrent with and due to cannabis dependence Hypertension Surgical History History of eye surgery (~06/2022) Social History Household Members: Family Housing: Apartment Do you presently have visiting nurse or other home services: No Patient Tobacco Use Status: Never used Tobacco Smoked in Last 30 Days: Yes e-Cigarette/Vaping Use: Never Used Second Hand Smoke Exposure: No (N/A) Use of substances other than those prescribed or required for medical reasons: Yes Substance Use Type: Marijuana Advance Directives: No Advance Directives Information Provided: Yes Do you have a plan to hurt others: No Plan service: No Meds Allergies Allergy/AdvReac Type Severity Reaction Status Date / Time No Known Allergies Allergy Verified 02/25/24 12:08 [No Known Allergies*] Home Medications ?Medication ?Instructions ?Recorded ?Confirmed ?Last Taken ?Type empagliflozin 10 mg tablet 10 mg PO DAILY 10/29/23 02/25/24 02/24/24 History (Jardiance) insulin glargine 100 unit/mL (3 10 unit subcut BEDTIME 10/29/23 02/25/24 02/24/24 History mL) subcutaneous pen (Lantus Solostar U-100 Insulin) carvedilol 25 mg tablet 25 mg PO BID 02/06/24 02/25/24 02/24/24 History pantoprazole 20 mg tablet,delayed 20 mg PO DAILY 02/06/24 02/25/24 02/24/24 History release amlodipine 10 mg tablet 10 mg PO DAILY 02/25/24 02/25/24 02/24/24 History escitalopram oxalate 10 mg tablet 10 mg PO DAILY 02/25/24 02/25/24 02/24/24 History Physical Exam Vital Signs and Narrative: Vital Signs: Last Vital Signs Temp 98.4 F 02/25/24 14:00 Pulse 77 02/25/24 14:00 Resp 18 02/25/24 14:00 BP 133/50 L 02/25/24 14:00 Pulse Ox 95 02/25/24 14:00 O2 Del Method Room Air 02/25/24 14:00 BMI result Body Mass Index 34.5 General: AOx3, lookd uncomfortable Resp: CTA bilaterally CVS: S1, S2, RRR GI: +BS, NT, no distention Skin: Warm, dry Neuro: Cranial nerves II-XII grossly intact bilaterally. Motor grossly intact bilaterally Extremities: No edema Psych: Anxious, moving very little and speaking in a whisper. Pt tremulous Results Labs 02/25/24 12:19 02/25/24 12:19 Labs: Laboratory Results - last 24 hr 02/25/24 02/25/24 02/25/24 12:19 13:10 13:32 MCV 84.4 MCH 30.4 MCHC 36.0 RDW 12.3 Plt Count 249 MPV 9.7 Immature Gran % (Auto) 0.3 Neut % (Auto) 88.3 H Lymph % (Auto) 7.8 L [place] % (Auto) 2.7 Eos % (Auto) 0.5 Baso % (Auto) 0.4 Lymph # (Auto) 0.9 L [place] # (Auto) 0.3 Eos # (Auto) 0.1 Baso # (Auto) 0.0 Abs Immat Gran (auto) 0.03 Absolute Neuts (auto) 9.6 H Absolute Nucleated RBC 0.000 Nucleated RBC % (auto) 0.0 Anion Gap 13 Estim Creat Clear Calc 72.7 Estimated GFR 49 POC Glucose 209 H Random Glucose 258 H Calcium 9.7 D Magnesium 2.3 Total Bilirubin 0.7 Direct Bilirubin 0.1 AST 18 ALT 13 Alkaline Phosphatase 86 Troponin I High Sens < 2.7 D Total Protein 7.5 Albumin 4.1 Lipase 21 Urine Color Yellow Urine Appearance Clear Urine pH 6.5 Ur Specific [place] >= 1.030 H Urine Protein 300 (3+) H Urine Glucose (UA) >=1000 H Urine Ketones Trace Urine Blood Moderate (2+) H Urine Nitrite Negative Ur Leukocyte Esterase Negative Urine RBC >20 H Urine WBC 0-5 Ur Squamous Epith Cells 0-2 Urine Bacteria None Seen Hyaline Casts 0-2 Urine Opiates Screen Not Detected Ur Buprenorphine Scrn Not Detected Ur Oxycodone Screen Not Detected Urine Methadone Screen Not Detected Urine Fentanyl Screen Not Detected Ur Barbiturates Screen Not Detected Ur Phencyclidine Scrn Not Detected Ur Amphetamines Screen Not Detected U Benzodiazepines Scrn Not Detected Urine Cocaine Screen Not Detected U Marijuana (THC) Screen POSITIVE H Influenza Type A (PCR) NEGATIVE Influenza Type B (PCR) NEGATIVE RSV RNA Qual (PCR) NEGATIVE SARS-CoV-2 RNA (RT-PCR) NEGATIVE Assessment and Plan (1) KARUNA (acute kidney injury): Status: Acute (2) Cyclical vomiting: Status: Acute Plan Pt is a 28-year-old male with a PMH significant for?HTN, insulin-dependent type 2 diabetes, CKD 2, blind in left eye, cyclic vomiting syndrome, and anxiety who presents to the ED with?intractable nausea and vomiting since this morning. Pt will be admitted to the hospital for treatment and further evaluation of KARUNA on CKD secondary to intractable nausea and vomiting likely secondary to cannabis hyperemesis syndrome. KARUNA on CKD 2 Creatinine 1.67 at time of presentation, elevated from 1.29 on 02/07 Likely secondary to GI losses from intractable N/V and reduced p.o. intake Patient received IVF in the ED Will place on maintenance fluids Follow creatinine Intractable nausea and vomiting Likely secondary to cannabis hyperemesis syndrome Pt smokes marijuana daily Will treat with IVF, Protonix, ondansetron, and Compazine x1 dose Clear liquid diet for now, advance as tolerated Marijuana cessation counseled Uncontrolled anxiety Patient extremely anxious Recently stopped hydroxyzine due to blurry vision Does not have outpatient mental health care at the moment Continue escitalopram Ativan p.r.n. Pt needs to establish outpatient mental health care Hypertensive urgency Hx of poorly controlled HTN BP as high as 215/98 in the ED Continue carvedilol Labetalol p.r.n. for SBP>170 Insulin-dependent type 2 diabetes Hold Jardiance for now due to reduced p.o. intake Will place on sliding scale insulin Continue Lantus at 50% Full Code Attending:?Dr. Aldana DVT Prophylaxis: Lovenox Pt will require a hospitalization of at least two nights for treatment of?KARUNA on CKD secondary to intractable nausea and vomiting secondary to cannabis hyperemesis syndrome. The patient will need inpatient level of care for administration of IVF, IV antiemetics, IV analgesics, and close monitoring of labs and BP. Quality Stroke Does the patient have a stroke diagnosis?: No VTE Prior VTE?: No VTE Risk Level:: Medical - moderate - high VTE Device Contraindication: Treatment Not Indicated VTE Drug Contraindication: N/A - Med Ordered
[2024-02-25] MEDS: Haloperidol Lactate 5 MG/ML VIAL 1.7 MG IVPUSH (15:59)
--- NOTE | 2024-02-25 16:14 | PC.NURSE ---
pt had additional episode of vomiting after admin st GI kimberly- notified, latasha ordered- pt to be admitted
--- NOTE | 2024-02-25 16:42 | PHA.MEDREC ---
Addendum entered by [facility] 02/25/24 16:51: med rec reviewed Original Note: Pharmacy Consult ? Medication Reconciliation Pharmacy has completed the medication reconciliation. Spoke to patient to confirm med list. Patient confirmed Lantus Solostar 10 units at bedtime, patient states he is now on Carvedilol 25 mg, last filled 12/21/23 for 30 days.
[2024-02-25] MEDS: Pantoprazole Sodium 40 MG/10 ML VIAL IVPUSH (17:21)
[2024-02-25] MEDS: Prochlorperazine Edisylate 10 MG/2 ML VIAL 5 MG IVPUSH (17:21)
[2024-02-25] MEDS: Lactated Ringers 1,000 ML 100 ML IVCONT (17:21)
[2024-02-25] MEDS: Enoxaparin Sodium 40 MG/0.4 ML SYRINGE SUBCUT (17:22)
[2024-02-25 20:47] LABS: Glucose, Whole Blood 121 mg/dL (60-115)
[2024-02-26] VITALS (8 sets, daily range): BP systolic 161–195; BP diastolic 70–88; PULSE 73–83; RESP 16–18; TEMP 36.9–37.4; O2SAT 95–99
[2024-02-26] MEDS: Lactated Ringers 1,000 ML 100 ML IVCONT ×3 (02:34→22:46)
[2024-02-26] MEDS: carvediloL 25 MG TABLET PO ×2 (03:46→17:20)
[2024-02-26] MEDS: amLODIPine Besylate 10 MG TABLET PO (03:46)
--- NOTE | 2024-02-26 04:21 | PC.NURSE ---
BP 195/79, pulse 83. No nausea or vomiting. Home BP meds reordered and given, will continue to monitor.
[2024-02-26] MEDS: Pantoprazole Sodium 40 MG/10 ML VIAL IVPUSH (06:03)
[2024-02-26] MEDS: LORazepam 2 MG/ML VIAL 0.5 MG IVPUSH ×3 (06:03→19:40)
[2024-02-26 07:03] LABS: Anion Gap 13 (12-20); Blood Urea Nitrogen 26 mg/dL (9-16); Calcium 8.8 mg/dL (8.4-10.2); Carbon Dioxide 25 mmol/L (22-29); Chloride 106 mmol/L (96-108); Creatinine Clr Calc Pharmacy 71.1; Estimated Glomerular Filt Rate 49; Glucose Random 112 mg/dL (60-115); Potassium 3.7 mmol/L (3.3-5.1); Sodium 140 mmol/L (135-145)
[2024-02-26 07:32] LABS: Glucose, Whole Blood 122 mg/dL (60-115)
[2024-02-26 09:08] LABS: Hemoglobin A1C 149.7985 umol/L
[2024-02-26] MEDS: Escitalopram Oxalate 10 MG TABLET PO (09:21)
--- NOTE | 2024-02-26 10:03 | P.PNIM_ITS ---
Subjective Subjective Date of Service: 02/26/24 Interval History: wishes to try solids N/V improved SCr still high Review of Systems Review of Systems: Yes all other systems are reviewed and are negative Physical Exam 2 Vital Signs: Vital Signs: Last Vital Signs Temp 98.5 F 02/26/24 07:22 Pulse 78 02/26/24 07:22 Resp 16 02/26/24 07:22 BP 179/83 H 02/26/24 07:22 Pulse Ox 95 02/26/24 07:22 O2 Del Method Room Air 02/26/24 07:22 BMI result Body Mass Index 32.9 Gen: in no acute distress HEENT: sclera anicteric, moist mucus membranes Neck: supple Lungs: clear to auscultation bilaterally Heart: regular rate and rhythm, no murmurs Abd: soft, mildly tender, non-distended Ext: no edema Skin: warm/well-perfused Neuro: alert and oriented x3, no focal findings Psych: appropriate affect Objective Data Active Medications Acetaminophen (Acetaminophen 325 Mg Tablet) 650 mg PO Q6H PRN PRN Reason: Pain, Mild 1-3,fever,headache Amlodipine Besylate (Amlodipine Besylate 10 Mg Tablet) 10 mg PO DAILY [facility]; Protocol Last Admin: 02/26/24 03:46 Dose: 10 mg Documented By: MARKUS Benzonatate (Benzonatate 100 Mg Capsule) 100 mg PO TID PRN PRN Reason: Cough Calcium Carbonate (Calcium Carbonate 750 Mg Tab.Chew) 750 mg PO Q4H PRN PRN Reason: Heartburn Carvedilol (Carvedilol 25 Mg Tablet) 25 mg PO BIDWM [facility]; Protocol Last Admin: 02/26/24 03:46 Dose: 25 mg Documented By: MARKUS Enoxaparin Sodium (Enoxaparin Sodium 40 Mg/0.4 Ml Syringe) 40 mg SUBCUT Q24H PRIYANKA Last Admin: 02/25/24 17:22 Dose: 40 mg Documented By: ROMEO Escitalopram Oxalate (Escitalopram Oxalate 10 Mg Tablet) 10 mg PO DAILY [facility] Last Admin: 02/26/24 09:21 Dose: 10 mg Documented By: HARMEET Glucose (Glucose Gel 15 Gm Gel..Gram.) 15 gm PO Q15M PRN; Protocol PRN Reason: per Hypoglycemia Standing Ord. Lactated Ringer's (Lr) 1,000 mls @ 100 mls/hr IVCONT .Q10H [facility] Last Admin: 02/26/24 02:34 Dose: 100 mls/hr Documented By: MARKUS Dextrose (D10) 250 mls @ 750 mls/hr IV Q15M PRN; Protocol PRN Reason: per Hypoglycemia Standing Ord. Insulin Glargine (Insulin Glargine,Hum.Rec.Anlog 100 Unit/Ml 10 Ml Vial) 10 unit SUBCUT BEDTIME [facility] Insulin Human Lispro (Insulin Lispro 100 Unit/Ml 3 Ml Vial) 0 unit SUBCUT QIDACHS [facility]; Protocol Last Admin: 02/26/24 08:04 Dose: Not Given Documented By: HARMEET Non-Admin Reason: No Insulin Coverage Ketorolac Tromethamine (Ketorolac Tromethamine 30 Mg/Ml Vial) 15 mg IVPUSH Q6H PRN PRN Reason: Pain, Moderate(Pain Scale 4-6) Stop: 03/01/24 16:40 Last Admin: 02/25/24 19:03 Dose: 15 mg Documented By: MARKUS Lorazepam (Lorazepam 2 Mg/Ml Vial) 0.5 mg IVPUSH Q4H PRN PRN Reason: anxiety/restlessness Last Admin: 02/26/24 06:03 Dose: 0.5 mg Documented By: MARKUS Magnesium Hydroxide (Milk Of Magnesia 30 Ml Oral.Susp) 30 ml PO DAILY PRN PRN Reason: Constipation Melatonin (Melatonin 3 Mg Tablet) 6 mg PO BEDTIME PRN PRN Reason: Insomnia Ondansetron HCl (Ondansetron Hcl 4 Mg/2 Ml Vial) 4 mg IVPUSH Q8H PRN PRN Reason: Nausea and Vomiting Pantoprazole Sodium (Pantoprazole Sodium 40 Mg/10 Ml Vial) 40 mg IVPUSH DAILY@0630 [facility] Last Admin: 02/26/24 06:03 Dose: 40 mg Documented By: MARKUS Sodium Chloride (0.9 % Sodium Chloride Flush 3 Ml Syringe) 3 ml IVFLUSH QSHIFT [facility] Last Admin: 02/26/24 09:18 Dose: Not Given Documented By: HARMEET Non-Admin Reason: IV Running Labs 02/25/24 12:19 02/26/24 06:01 Labs: Laboratory Results - last 24 hr 12/24/24 12/24/24 12/24/24 12:19 13:10 13:32 MCV 84.4 MCH 30.4 MCHC 36.0 RDW 12.3 Plt Count 249 MPV 9.7 Immature Gran % (Auto) 0.3 Neut % (Auto) 88.3 H Lymph % (Auto) 7.8 L [place] % (Auto) 2.7 Eos % (Auto) 0.5 Baso % (Auto) 0.4 Lymph # (Auto) 0.9 L [place] # (Auto) 0.3 Eos # (Auto) 0.1 Baso # (Auto) 0.0 Abs Immat Gran (auto) 0.03 Absolute Neuts (auto) 9.6 H Absolute Nucleated RBC 0.000 Nucleated RBC % (auto) 0.0 Anion Gap 13 Estim Creat Clear Calc 72.7 Estimated GFR 49 POC Glucose 209 H Random Glucose 258 H Calcium 9.7 D Magnesium 2.3 Total Bilirubin 0.7 Direct Bilirubin 0.1 AST 18 ALT 13 Alkaline Phosphatase 86 Troponin I High Sens < 2.7 D Total Protein 7.5 Albumin 4.1 Lipase 21 Urine Color Yellow Urine Appearance Clear Urine pH 6.5 Ur Specific [place] >= 1.030 H Urine Protein 300 (3+) H Urine Glucose (UA) >=1000 H Urine Ketones Trace Urine Blood Moderate (2+) H Urine Nitrite Negative Ur Leukocyte Esterase Negative Urine RBC >20 H Urine WBC 0-5 Ur Squamous Epith Cells 0-2 Urine Bacteria None Seen Hyaline Casts 0-2 Urine Opiates Screen Not Detected Ur Buprenorphine Scrn Not Detected Ur Oxycodone Screen Not Detected Urine Methadone Screen Not Detected Urine Fentanyl Screen Not Detected Ur Barbiturates Screen Not Detected Ur Phencyclidine Scrn Not Detected Ur Amphetamines Screen Not Detected U Benzodiazepines Scrn Not Detected Urine Cocaine Screen Not Detected U Marijuana (THC) Screen POSITIVE H Influenza Type A (PCR) NEGATIVE Influenza Type B (PCR) NEGATIVE RSV RNA Qual (PCR) NEGATIVE SARS-CoV-2 RNA (RT-PCR) NEGATIVE 02/25/24 02/26/24 02/26/24 20:42 06:01 07:27 MCV MCH MCHC RDW Plt Count MPV Immature Gran % (Auto) Neut % (Auto) Lymph % (Auto) [place] % (Auto) Eos % (Auto) Baso % (Auto) Lymph # (Auto) [place] # (Auto) Eos # (Auto) Baso # (Auto) Abs Immat Gran (auto) Absolute Neuts (auto) Absolute Nucleated RBC Nucleated RBC % (auto) Anion Gap 13 Estim Creat Clear Calc 71.1 Estimated GFR 49 POC Glucose 121 H 122 H Random Glucose 112 Calcium 8.8 D Magnesium Total Bilirubin Direct Bilirubin AST ALT Alkaline Phosphatase Troponin I High Sens Total Protein Albumin Lipase Urine Color Urine Appearance Urine pH Ur Specific [place] Urine Protein Urine Glucose (UA) Urine Ketones Urine Blood Urine Nitrite Ur Leukocyte Esterase Urine RBC Urine WBC Ur Squamous Epith Cells Urine Bacteria Hyaline Casts Urine Opiates Screen Ur Buprenorphine Scrn Ur Oxycodone Screen Urine Methadone Screen Urine Fentanyl Screen Ur Barbiturates Screen Ur Phencyclidine Scrn Ur Amphetamines Screen U Benzodiazepines Scrn Urine Cocaine Screen U Marijuana (THC) Screen Influenza Type A (PCR) Influenza Type B (PCR) RSV RNA Qual (PCR) SARS-CoV-2 RNA (RT-PCR) Assessment and Plan (1) Cyclical vomiting: Status: Acute Plan d2 for 28yo M with HTN, DM2, CKD2, L eye blindness, cyclic vomiting syndrome, anxiety, excess THC use admitted for KARUNA/CKD2 due to intractable N/V due to cannabinoid hyperemesis syndrome CHS/CVS - IV fluids, ondansetron, PPI - counseled to avoid THC completely or he will likely be back in the hospital; Addiction Medicine consult - try to advance diet today KARUNA/CKD2 - SCr still up, continue IV fluids, recheck BMP in AM HTN urgency - resolved; continue carvedilol and amlodipine uncontrolled anxiety - stopped hydroxyzine due to report of blurry vision; does not have outpt mental health care; continue escitlaopram + lorazepam; consult Psychiatr DM2 - A1c pending; continue empagliflozin + basal-bolus insulin VTE prophylaxis - enoxaparin dispo - eventual home In my clinical judgment, the patient requires continued inpatient hospitalization for the following reasons: IV fluids for KARUNA Total time managing care of this patient today: 35 minutes. Quality Stroke Does the patient have a stroke diagnosis?: No VTE Prior VTE?: No VTE Risk Level:: Medical - moderate - high VTE Device Contraindication: Treatment Not Indicated VTE Drug Contraindication: N/A - Med Ordered
[2024-02-26 10:52] LABS: Estimated Average Glucose 148 mg/dL; Hemoglobin A1c % 6.8 % (<6.0)
[2024-02-26 11:21] LABS: Glucose, Whole Blood 135 mg/dL (60-115)
--- NOTE | 2024-02-26 13:51 | PM.PSYCN ---
History of Present Illness Date of Service: 02/26/2024 Chief Complaint: Intractable nausea and vomiting Reason for Consult: anxiety Requesting physician: Taras Aldana Sources of Information: patient interviewed, chart reviewed and crisis/core team assessment reviewed HPI Narrative: 28 yo male admitted for KARUNA, CKD-2, Intractable nausea and vomiting, possibly from cannabis hyperemesis syndrome, anxiety, HTN urgency 215/98 in ER and DM. Met with pt, , son to discuss medication options. Pt reports escitalopram has been somewhat helpful. He is in process of referral to therapy and psychiatry, however sx of anxiety are still present. Discussed cannabis use and hyperemesis. Pt reports a significant decrease in use of cannabis since vomiting episodes have become an issue. Cannabis is helpful for his mgt of sx of anxiety. Review of options of antihypertensives, mirtazapine, mood stabilizers. Past Psychiatric History: Referral for therapy,and possibly med mgt in place Medical Evaluation Reviewed: Yes Review of Systems Review of Systems as noted in HPI [facility] Medical History ADHD Generalized anxiety disorder Type 2 diabetes mellitus Cannabis hyperemesis syndrome concurrent with and due to cannabis dependence Hypertension Surgical History History of eye surgery (~06/2022) Diagnostics Vital Signs (24Hr): Vital Signs - 24 hr 02/25/24 14:00 02/25/24 16:00 02/25/24 18:58 Temperature 98.4 F 98.1 F 98.9 F Pulse Rate 77 78 118 H Respiratory Rate 18 18 15 Blood Pressure 133/50 L 165/86 H Pulse Oximetry 95 97 Oxygen Delivery Method Room Air Room Air 02/25/24 19:23 02/25/24 19:25 02/26/24 03:17 Temperature 98.8 F 99.4 F Pulse Rate 89 83 Respiratory Rate 16 16 Blood Pressure 170/74 H 160/70 H 195/79 H Pulse Oximetry 94 98 Oxygen Delivery Method Room Air Room Air 02/26/24 05:45 02/26/24 07:22 Temperature 98.5 F Pulse Rate 78 Respiratory Rate 16 Blood Pressure 173/80 H 179/83 H Pulse Oximetry 95 Oxygen Delivery Method Room Air BMI result Body Mass Index 32.9 Labs 12/24/24 12:19 02/26/24 06:01 Labs: Laboratory Results - last 48 hr 02/25/24 02/25/24 02/25/24 12:19 13:10 13:32 WBC 10.8 RBC 3.85 L Hgb 11.7 L Hct 32.5 L MCV 84.4 MCH 30.4 MCHC 36.0 RDW 12.3 Plt Count 249 MPV 9.7 Immature Gran % (Auto) 0.3 Neut % (Auto) 88.3 H Lymph % (Auto) 7.8 L [place] % (Auto) 2.7 Eos % (Auto) 0.5 Baso % (Auto) 0.4 Lymph # (Auto) 0.9 L [place] # (Auto) 0.3 Eos # (Auto) 0.1 Baso # (Auto) 0.0 Abs Immat Gran (auto) 0.03 Absolute Neuts (auto) 9.6 H Absolute Nucleated RBC 0.000 Nucleated RBC % (auto) 0.0 Sodium 140 Potassium 4.1 Chloride 104 Carbon Dioxide 27 Anion Gap 13 BUN 24 H Creatinine 1.67 H Estim Creat Clear Calc 72.7 Estimated GFR 49 POC Glucose 209 H Random Glucose 258 H Estimat Average Glucose Hemoglobin A1c % Calcium 9.7 D Magnesium 2.3 Total Bilirubin 0.7 Direct Bilirubin 0.1 AST 18 ALT 13 Alkaline Phosphatase 86 Troponin I High Sens < 2.7 D Total Protein 7.5 Albumin 4.1 Lipase 21 Urine Color Yellow Urine Appearance Clear Urine pH 6.5 Ur Specific [place] >= 1.030 H Urine Protein 300 (3+) H Urine Glucose (UA) >=1000 H Urine Ketones Trace Urine Blood Moderate (2+) H Urine Nitrite Negative Ur Leukocyte Esterase Negative Urine RBC >20 H Urine WBC 0-5 Ur Squamous Epith Cells 0-2 Urine Bacteria None Seen Hyaline Casts 0-2 Urine Opiates Screen Not Detected Ur Buprenorphine Scrn Not Detected Ur Oxycodone Screen Not Detected Urine Methadone Screen Not Detected Urine Fentanyl Screen Not Detected Ur Barbiturates Screen Not Detected Ur Phencyclidine Scrn Not Detected Ur Amphetamines Screen Not Detected U Benzodiazepines Scrn Not Detected Urine Cocaine Screen Not Detected U Marijuana (THC) Screen POSITIVE H Influenza Type A (PCR) NEGATIVE Influenza Type B (PCR) NEGATIVE RSV RNA Qual (PCR) NEGATIVE SARS-CoV-2 RNA (RT-PCR) NEGATIVE 02/25/24 02/26/24 02/26/24 20:42 06:01 07:27 WBC RBC Hgb Hct MCV MCH MCHC RDW Plt Count MPV Immature Gran % (Auto) Neut % (Auto) Lymph % (Auto) [place] % (Auto) Eos % (Auto) Baso % (Auto) Lymph # (Auto) [place] # (Auto) Eos # (Auto) Baso # (Auto) Abs Immat Gran (auto) Absolute Neuts (auto) Absolute Nucleated RBC Nucleated RBC % (auto) Sodium 140 Potassium 3.7 Chloride 106 Carbon Dioxide 25 Anion Gap 13 BUN 26 H Creatinine 1.67 H Estim Creat Clear Calc 71.1 Estimated GFR 49 POC Glucose 121 H 122 H Random Glucose 112 Estimat Average Glucose Hemoglobin A1c % Calcium 8.8 D Magnesium Total Bilirubin Direct Bilirubin AST ALT Alkaline Phosphatase Troponin I High Sens Total Protein Albumin Lipase Urine Color Urine Appearance Urine pH Ur Specific [place] Urine Protein Urine Glucose (UA) Urine Ketones Urine Blood Urine Nitrite Ur Leukocyte Esterase Urine RBC Urine WBC Ur Squamous Epith Cells Urine Bacteria Hyaline Casts Urine Opiates Screen Ur Buprenorphine Scrn Ur Oxycodone Screen Urine Methadone Screen Urine Fentanyl Screen Ur Barbiturates Screen Ur Phencyclidine Scrn Ur Amphetamines Screen U Benzodiazepines Scrn Urine Cocaine Screen U Marijuana (THC) Screen Influenza Type A (PCR) Influenza Type B (PCR) RSV RNA Qual (PCR) SARS-CoV-2 RNA (RT-PCR) 02/26/24 02/26/24 11:15 12:19 WBC RBC Hgb Hct MCV MCH MCHC RDW Plt Count MPV Immature Gran % (Auto) Neut % (Auto) Lymph % (Auto) [place] % (Auto) Eos % (Auto) Baso % (Auto) Lymph # (Auto) [place] # (Auto) Eos # (Auto) Baso # (Auto) Abs Immat Gran (auto) Absolute Neuts (auto) Absolute Nucleated RBC Nucleated RBC % (auto) Sodium Potassium Chloride Carbon Dioxide Anion Gap BUN Creatinine Estim Creat Clear Calc Estimated GFR POC Glucose 135 H Random Glucose Estimat Average Glucose 148 Hemoglobin A1c % 6.8 H Calcium Magnesium Total Bilirubin Direct Bilirubin AST ALT Alkaline Phosphatase Troponin I High Sens Total Protein Albumin Lipase Urine Color Urine Appearance Urine pH Ur Specific [place] Urine Protein Urine Glucose (UA) Urine Ketones Urine Blood Urine Nitrite Ur Leukocyte Esterase Urine RBC Urine WBC Ur Squamous Epith Cells Urine Bacteria Hyaline Casts Urine Opiates Screen Ur Buprenorphine Scrn Ur Oxycodone Screen Urine Methadone Screen Urine Fentanyl Screen Ur Barbiturates Screen Ur Phencyclidine Scrn Ur Amphetamines Screen U Benzodiazepines Scrn Urine Cocaine Screen U Marijuana (THC) Screen Influenza Type A (PCR) Influenza Type B (PCR) RSV RNA Qual (PCR) SARS-CoV-2 RNA (RT-PCR) Mental Status Exam Mental Status Exam Patient Appearance: Fatigued and Appropriate Patient Orientation: Person, Place, Time and Situation Level of Consciousness: Alert Patient Behavior: Appropriate, Talkative, Cooperative and Good Eye Contact Mood Description: Anxious and Apprehensive Affect Description: Anxious and Apprehensive Patient Cognition Impaired: No Ability to Follow Directions: Good Speech Pattern: Spontaneous Speech Memory Description: Intact Hallucinations: None Delusions: Not Present Thought Process: Intact and Goal Oriented Thought Content: positive for Intact and positive for Goal Oriented Judgement: Good Medications Medications Current Medications Acetaminophen (Acetaminophen 325 Mg Tablet) 650 mg PO Q6H PRN PRN Reason: Pain, Mild 1-3,fever,headache Amlodipine Besylate (Amlodipine Besylate 10 Mg Tablet) 10 mg PO DAILY [facility]; Protocol Last Admin: 02/26/24 03:46 Dose: 10 mg Benzonatate (Benzonatate 100 Mg Capsule) 100 mg PO TID PRN PRN Reason: Cough Calcium Carbonate (Calcium Carbonate 750 Mg Tab.Chew) 750 mg PO Q4H PRN PRN Reason: Heartburn Carvedilol (Carvedilol 25 Mg Tablet) 25 mg PO BIDWM [facility]; Protocol Last Admin: 02/26/24 03:46 Dose: 25 mg Empagliflozin (Empagliflozin 10 Mg Tablet) 10 mg PO DAILY [facility] Enoxaparin Sodium (Enoxaparin Sodium 40 Mg/0.4 Ml Syringe) 40 mg SUBCUT Q24H [facility] Last Admin: 02/25/24 17:22 Dose: 40 mg Escitalopram Oxalate (Escitalopram Oxalate 10 Mg Tablet) 10 mg PO DAILY [facility] Last Admin: 02/26/24 09:21 Dose: 10 mg Glucose (Glucose Gel 15 Gm Gel..Gram.) 15 gm PO Q15M PRN; Protocol PRN Reason: per Hypoglycemia Standing Ord. Lactated Ringer's (Lr) 1,000 mls @ 100 mls/hr IVCONT .Q10H [facility] Last Infusion: 02/26/24 12:35 Dose: Infused Dextrose (D10) 250 mls @ 750 mls/hr IV Q15M PRN; Protocol PRN Reason: per Hypoglycemia Standing Ord. Insulin Glargine (Insulin Glargine,Hum.Rec.Anlog 100 Unit/Ml 10 Ml Vial) 10 unit SUBCUT BEDTIME [facility] Insulin Human Lispro (Insulin Lispro 100 Unit/Ml 3 Ml Vial) 0 unit SUBCUT QIDACHS [facility]; Protocol Last Admin: 02/26/24 11:22 Dose: Not Given Ketorolac Tromethamine (Ketorolac Tromethamine 30 Mg/Ml Vial) 15 mg IVPUSH Q6H PRN PRN Reason: Pain, Moderate(Pain Scale 4-6) Stop: 03/01/24 16:40 Last Admin: 02/25/24 19:03 Dose: 15 mg Lorazepam (Lorazepam 2 Mg/Ml Vial) 0.5 mg IVPUSH Q4H PRN PRN Reason: anxiety/restlessness Last Admin: 02/26/24 11:10 Dose: 0.5 mg Magnesium Hydroxide (Milk Of Magnesia 30 Ml Oral.Susp) 30 ml PO DAILY PRN PRN Reason: Constipation Melatonin (Melatonin 3 Mg Tablet) 6 mg PO BEDTIME PRN PRN Reason: Insomnia Ondansetron HCl (Ondansetron Hcl 4 Mg/2 Ml Vial) 4 mg IVPUSH Q8H PRN PRN Reason: Nausea and Vomiting Pantoprazole Sodium (Pantoprazole Sodium 40 Mg/10 Ml Vial) 40 mg IVPUSH DAILY@0630 [facility] Last Admin: 02/26/24 06:03 Dose: 40 mg Sodium Chloride (0.9 % Sodium Chloride Flush 3 Ml Syringe) 3 ml IVFLUSH QSHIFT [facility] Last Admin: 02/26/24 09:18 Dose: Not Given Allergies Allergies Allergy/AdvReac Type Severity Reaction Status Date / Time No Known Allergies Allergy Verified 02/25/24 12:08 [No Known Allergies*] Assessment & Plan Assessment & Plan (1) Cannabis use disorder: Status: Acute Code(s): F12.90 - Cannabis use, unspecified, uncomplicated (2) Anxiety: Status: Acute Code(s): F41.9 - Anxiety disorder, unspecified Plan Discussed with pt and cannabis hyperemesis syndrome and pt possibly needing to stop use or consult with a medical cannabis provider to discuss options that he will be able to tolerate. Discussed options for mgt of anxiety including escitalopram titration when physical sx resolve, clonidine prn, mirtazapine, buspirone or addition of a mood stabilizer to escitalopram. Pt will consider Suggest clonidine 0.1 mg bid prn trial during in pt stay for assessment of efficacy, tolerance (new start of Carvedilol with potential SE) Total time managing care of this patient today ____ minutes.
--- NOTE | 2024-02-26 14:10 | MHC.CM.PN ---
CM MET WITH PT AT BEDSIDE. PT LIVES WITH FAMILY AND IS FUNCTIONALLY INDEPENDENT. +HCP ON FILE AND VERIFIED. PCP [facility] DP: HOME, NO SERVICES IS THE GOAL. PT HAS OWN [facility]. CM WILL CONTINUE TO FOLLOW FOR ANY CHANGE TO DC PLAN/NEEDS.
[2024-02-26 16:23] LABS: Glucose, Whole Blood 126 mg/dL (60-115)
[2024-02-26] MEDS: Enoxaparin Sodium 40 MG/0.4 ML SYRINGE SUBCUT (17:21)
[2024-02-26] MEDS: Losartan Potassium 25 MG TABLET PO (19:35)
[2024-02-26 20:17] LABS: Glucose, Whole Blood 122 mg/dL (60-115)
[2024-02-26] MEDS: Ketorolac Tromethamine 30 MG/ML VIAL 15 MG IVPUSH (21:55)
[2024-02-26] MEDS: Melatonin 3 MG TABLET 6 MG PO (22:04)
[2024-02-27] MEDS: LORazepam 2 MG/ML VIAL 0.5 MG IVPUSH (02:45)
[2024-02-27 02:52] VITALS: BP 180/98; PULSE 75; RESP 18; TEMP 36.5; O2SAT 99
[2024-02-27] MEDS: Acetaminophen 325 MG TABLET 650 MG PO (02:57)
[2024-02-27] MEDS: carvediloL 25 MG TABLET PO (02:58)
[2024-02-27] MEDS: amLODIPine Besylate 10 MG TABLET PO (02:58)
--- NOTE | 2024-02-27 03:03 | PC.NURSE ---
Addendum entered by Myla Leigh RN 02/27/24 05:07: Rechecked BP after medication: 168/80 manually, pt resting comfortably in bed with respirations even and unlabored. MD Lou made aware of the pt's BP. No orders given. Will continue to monitor pt's BP. Original Note: Pt with elevated BP 180/98n manually, anxious, and 7/10 headache. PRN Ativan given to pt, see MAR, pending effectiveness. MD Salgado notified of the pt's elevated BP. MD keyes to give PRIYANKA Carvedilol and Amlodipine earlier. BP medications given to pt, see MAR. Will reassess Pt's BP in 1 hour. Will continue to monitor.
[2024-02-27 04:57] VITALS: BP 168/80
[2024-02-27] MEDS: Pantoprazole Sodium 40 MG/10 ML VIAL IVPUSH (06:28)
[2024-02-27 07:36] VITALS: BP 178/84; PULSE 75; RESP 16; TEMP 36.9; O2SAT 99
[2024-02-27 07:45] LABS: Glucose, Whole Blood 111 mg/dL (60-115)
[2024-02-27] MEDS: 0.9 % Sodium Chloride Flush 3 ML SYRINGE IVFLUSH (08:35)
[2024-02-27] MEDS: Empagliflozin 10 MG TABLET PO (08:38)
[2024-02-27] MEDS: Escitalopram Oxalate 10 MG TABLET PO (08:38)
[2024-02-27 08:40] VITALS: BP 177/84
[2024-02-27] MEDS: Losartan Potassium 25 MG TABLET PO (08:40)
--- NOTE | 2024-02-27 08:47 | PC.NURSE ---
BP elevated 177/84 ,pt denies nausea,no vomiting,pt would like to be discharged,Dr. Cullen notified
[2024-02-27 11:16] LABS: Glucose, Whole Blood 157 mg/dL (60-115)
[2024-02-27] MEDS: Insulin Lispro 100 UNIT/ML 3 ML VIAL SUBCUT (11:44)
--- NOTE | 2024-02-27 12:56 | MHC.CM.PN ---
Addendum entered by Sakina Tinajero 02/27/24 13:41: PT WILL DC HOME TODAY WITH NO SERVICES Original Note: [facility] AND CM MET WITH PT AT BEDSIDE PT STATES HE LIVES AT HOME WITH FAMILY PT'S PCP IS [facility] PT'S HCP IS JESSENIA COLE, PT'S INS IS [facility] PT' HAS NO SERVICES OR DME DCP: [facility] NO SERVICES
--- NOTE | 2024-02-27 13:44 | P.DS_ITS ---
DS: Providers Provider Date of Service: 02/27/24 Date of admission: 02/25/24 16:41 Date of discharge: 02/27/24 Primary care physician: CARL Gibbons Consults: 02/26/24 07:23 Consult to Psychiatry [place]ine [place]ing [place] [facility] [place] Reason for consultation: Uncontrolled anxiety 02/26/24 10:08 Addiction Medicine Routine Consulting Provider: Addiction Covering Reason for consultation: daily THC use leading to health problems DS: Diagnosis Discharge Diagnosis (1) Cannabis use disorder: Status: Acute (2) Anxiety: Status: Acute DS: Summary Hospital Course Hospital Course: 28-year-old male with a PMH significant for?HTN, insulin-dependent type 2 diabetes, CKD 2, blind in left eye, cyclic vomiting syndrome, and anxiety who presents to the ED with?intractable nausea and vomiting since this morning. Patient reports he has been unable to tolerate any p.o. intake. Also complains of epigastric ?gripping and squeezing? pain/sensation that began sometime after N/V started. Additionally, patient has been experiencing significantly increased anxiety today. Denies diarrhea. No hematemesis or hematochezia. Denies headache or lightheadedness or dizziness. Of note, this is patient's 4th hospitalization for similar symptoms in the past 4 months. Was admitted in December at [facility] [place] and in December and earlier in [place] [facility] Patient states he is trying to cut back on marijuana, currently down to smoking 1-2 times daily mostly prior to bedtime. Patient also has a history of significant anxiety and reports has not yet been able to establish psychiatric care. In the ED pt was hypertensive up to 04/18/1989 vitals otherwise stable and WNL. Labs were significant for elevated creatinine at 1.67 (baseline around 1.30) and random glucose 258, otherwise grossly unremarkable and around baseline for patient. Stable normocytic anemia of 11.7/32.5. No significant electrolyte abnormalities. Troponin negative. Hepatic function WNL. UA negative for UTI. Tox screen positive for marijuana. EKG demonstrated normal sinus rhythm without evidence of significant ST elevations or depressions. Pt was treated with labetalol, IVF, Protonix, Ativan, ketorolac, and GI cocktail. Pt will be admitted to the hospital for treatment and further evaluation of KARUNA on CKD secondary to intractable nausea and vomiting likely secondary to cannabis hyperemesis syndrome. Hospital Course Patient admitted to general medical floor kept on clear liquids IV antiemetics. He was also given IV Ativan for anxiety which he states drives his cannabis use. He was seen in consult by Psychiatry for possible options for his anxiety. At this point in time, patient is tolerating diet and is willing to be discharged on BuSpar 5 mg t.i.d. and follow up with PCP. He is advised to seek a medical cannabis provider to assess the ability to take cannabis safely for his anxiety. He will follow up with the PCP next available Time Attestation Discharge Coordination Time (in mins): 35 Quality: Safe Use of Opioids Does Pt have an Active Cancer Diagnosis on the Problem List?: No Quality: Stroke Does the patient have a stroke diagnosis?: No Physical Exam Vital Signs: Vital Signs: Last Vital Signs Temp 98.4 F 02/27/24 07:36 Pulse 75 02/27/24 07:36 Resp 16 02/27/24 07:36 BP 177/84 H 02/27/24 08:40 Pulse Ox 99 02/27/24 07:36 O2 Del Method Room Air 02/27/24 07:36 BMI result Body Mass Index 32.9 Const: Other: Awake alert no acute distress Resp: Other: Clear to auscultation bilaterally no rales rhonchi or wheezes Cardio: Other: No S4; positive S1-S2; no S3 murmurs rubs or gallops GI: Other: Soft nontender nondistended normoactive bowel sounds Extrem: Other: No edema bilaterally DS: Data Data Completed and Pending Labs on day of discharge: Laboratory Results - last 24 hr 02/26/24 02/26/24 02/27/24 16:20 20:00 07:35 POC Glucose 126 H 122 H 111 02/27/24 11:08 POC Glucose 157 H Discharge Plan Discharge Anticipated Discharge Date/Time: 02/27/24 13:37 Patient Disposition: Home, Self-Care Discharge Diagnosis: Cannabis use disorder Referrals: Leanne Alcazar, [employer] [Primary Care Provider] - Discharge Medications: New losartan 25 mg Tablet 25 mg PO DAILY Qty: 30 0RF Protocol: Hold for SBP< HOLD for SBP < : 90 buspirone 5 mg tablet 5 mg PO TID Qty: 90 0RF Continued pantoprazole 20 mg tablet,delayed release (DR/EC) 20 mg PO DAILY carvedilol 25 mg tablet 25 mg PO BID insulin glargine [Lantus Solostar U-100 Insulin] 100 unit/mL (3 mL) insulin pen 10 unit subcut BEDTIME Jardiance 10 mg tablet 10 mg PO DAILY amlodipine 10 mg tablet 10 mg PO DAILY escitalopram oxalate 10 mg tablet 10 mg PO DAILY Discharge Orders: Discharge Order (Routine); Ordered 02/27/24 Ordered By: Damion Cullen Diet: Advance to usual diet Activity on Discharge: As tolerated Stand Alone Forms: Patient Portal Discharge page Print Language: Liberian Care Plan Goals: Continue current therapies as prior to admission. BuSpar 5 mg t.i.d. has been added to your regimen for anxiety Health Concerns: You need to refrain from cannabis use; discuss with PCP option for anxiety including medically monitored cannabis Plan of Treatment: Follow up with PCP next available Assessment: See discharge summary
[2024-02-27 14:17] LABS: Anion Gap 12 (12-20); Blood Urea Nitrogen 21 mg/dL (9-16); Calcium 9.1 mg/dL (8.4-10.2); Carbon Dioxide 27 mmol/L (22-29); Chloride 104 mmol/L (96-108); Estimated Glomerular Filt Rate > 60; Glucose Random 147 mg/dL (60-115); Potassium 3.8 mmol/L (3.3-5.1); Sodium 139 mmol/L (135-145)
== END 2024-02-27 15:28 | disposition home or self-care (01) | DRG 249 ==
LOC: HO.ED 15:50 → HO.EDOVER 17:03 → HO.S3 17:47
PROVIDERS: Family Medicine; Admitting Provider Student in an Organized Health Care Education/Training Program; Emergency Provider Student in an Organized Health Care Education/Training Program; PCP Registered Nurse; Visit Provider Hospitalist
DX: R11.2 Nausea with vomiting, unspecified (principal); N17.9 Acute kidney failure, unspecified; E86.0 Dehydration; I12.9 Hypertensive chronic kidney disease with stage 1 through stage 4 chronic kidney disease, or unspecified chronic kidney disease; N18.2 Chronic kidney disease, stage 2 (mild); F41.9 Anxiety disorder, unspecified; I16.0 Hypertensive urgency; E11.22 Type 2 diabetes mellitus with diabetic chronic kidney disease; E11.65 Type 2 diabetes mellitus with hyperglycemia; F12.20 Cannabis dependence, uncomplicated; Z20.822 Contact with and (suspected) exposure to COVID-19; Z79.899 Other long term (current) drug therapy
CPT/HCPCS: 0241U; 36415; 80048; 80053; 80307; 81001; 82248; 82947; 83036; 83690; 83735; 84484; 85025; 93005; 99285; J0737; J1630; J1650; J1885; J1920; J2060; J2470; J7120; S9485

== ENCOUNTER → 2024-02-25 12:18 | Outpatient (BNV) | payer MEDICAID, SELFPAY | PROVIDERS: Emergency Provider Student in an Organized Health Care Education/Training Program; PCP Registered Nurse; Visit Provider Internal Medicine Cardiovascular Disease | DX: R07.9 Chest pain, unspecified (principal) | CPT/HCPCS: 93010 ==

== ENCOUNTER → 2024-02-25 12:23 | Outpatient (BNV) | payer MEDICAID, SELFPAY | PROVIDERS: Emergency Provider Student in an Organized Health Care Education/Training Program; PCP Registered Nurse; Visit Provider Student in an Organized Health Care Education/Training Program | DX: R11.15 Cyclical vomiting syndrome unrelated to migraine (principal) | CPT/HCPCS: 99223; 99232; 99239 ==

== ENCOUNTER → 2024-02-25 16:41 | Outpatient (BNV) | payer OTHER, SELFPAY | PROVIDERS: Admitting Provider Student in an Organized Health Care Education/Training Program; Emergency Provider Student in an Organized Health Care Education/Training Program; PCP Registered Nurse; Visit Provider Clinical Nurse Specialist Psychiatric/Mental Health, Adult | DX: F12.90 Cannabis use, unspecified, uncomplicated (principal); F41.9 Anxiety disorder, unspecified | CPT/HCPCS: 99232 ==

== ENCOUNTER 2024-03-03 15:07 | Outpatient (AMB) | payer MEDICAID, SELFPAY ==
--- NOTE | 2024-03-03 15:10 | MHC.OFFVIS ---
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/htn Intake Note: New patient was in ekg 02/24 had had 4x woke up with intense chest pain has gone to the ED for it Clinic Coordinator Required: No Allergies No Known Allergies [No Known Allergies*] Allergy (Verified 02/25/24 12:08) Medication List - Last Reconciled 03/03/24 by Jean-Pierre Lauren MD amlodipine 10 mg PO DAILY carvedilol 25 mg PO BID empagliflozin (Jardiance) 10 mg PO DAILY escitalopram oxalate 10 mg PO DAILY insulin glargine (Lantus Solostar U-100 Insulin) 10 units subcut BEDTIME losartan 25 mg See Protocol PO DAILY pantoprazole 40 mg PO DAILY HPI Comments Details: Thank you for referring Tristen in cardiology consultation today for evaluation of chest pain. Tristen's the pleasant 28-year-old male who has been to the emergency room multiple times with chest pain syndrome. Some of these chest pain syndrome have been associated with significantly elevated blood pressure. He has been treated for the same. He said however he continues to have these intermittent episode of chest pain which she describes as retrosternal chest pressure also sometimes without having significantly elevated blood pressure. He was referred here for further evaluation. An echocardiogram last June which had shown mildly reduced LV ejection fraction of 45-50%. He has longstanding history of insulin-requiring diabetes since his early teen years. He also has history of chronic kidney disease. He is currently being followed by Nephrology. He is currently taking all his medications regularly. Comes for further evaluation. [facility] Medical History (Updated 03/06/24 @ 00:01 by Luis F Singleton) Cannabis use disorder Hypertension Anxiety Chest pain ADHD Generalized anxiety disorder Type 2 diabetes mellitus Cannabis hyperemesis syndrome concurrent with and due to cannabis dependence Hypertension Surgical History History of eye surgery (~06/2022) Family History (Updated 03/03/24 @ 15:19 by CASSIE Oden) Father HTN (hypertension) Mother No problems noted. Social History Household Members: Family Housing: Apartment Do you presently have visiting nurse or other home services: No Patient Tobacco Use Status: Never used Tobacco e-Cigarette/Vaping Use: Never Used Second Hand Smoke Exposure: No (N/A) Substance Use Type: Marijuana service: No Review of Systems Const Denies chills, Denies daytime sleepiness, Denies fatigue, Denies fever(s), Denies frequent falls, Denies poor appetite, Denies snoring, Denies stops breathing during sleep, Denies weakness, Denies weight gain and Denies weight loss Eyes Denies loss of vision ENT Denies dizziness and Denies hearing loss Card Denies chest pain, Denies claudication, Denies leg edema, Denies lightheadedness, Denies palpitations, Denies dyspnea, Denies dyspnea on exertion and Denies orthopnea Resp Denies cough, Denies excessive phlegm production, Denies dyspnea, Denies dyspnea on exertion, Denies snoring and Denies wheezing GI Denies abdominal pain, Denies hematochezia, Denies change in bowel habits, Denies nausea and Denies vomiting Denies dysuria and Denies urinary frequency Musc Denies arthralgias, Denies muscle weakness, Denies numbness and Denies other (frequent falls) Skin/Breast Denies nail changes and Denies rash Neuro Denies Abnormal speech present, Denies dizziness, Denies frequent falls, Denies loss of vision, Denies memory loss, Denies numbness and Denies weakness Psych Denies depression and Denies memory loss Endo Denies fatigue and Denies palpitations Trevor/Lymph Reports easy bruising and Reports other (anemia) Aller/Immun Denies wheezing Physical Exam Vital Signs: Last Vital Signs Pulse 77 03/03/24 15:11 BP 134/80 03/03/24 15:11 BMI result Body Mass Index 31.8 Const General: cooperative, comfortable, no acute distress, alert, awake and Physically active Nutritional Appearance: overweight Orientation/consciousness: patient oriented x3 Limitations: no limitations HEENT Head: Yes normocephalic and Yes atraumatic Neck Neck: Yes trachea midline, Yes supple and Yes no JVD Resp Effort & Inspection: normal respiratory effort Auscultation: clear to auscultation bilaterally Cardio Jugular venous distension: no JVD Palpation: normal PMI Rate: regular rate Rhythm: regular rhythm Heart sounds: S1 normal heart sound present, S2 normal heart sound present, no click, no gallops, no murmurs and no rubs GI Auscultation: normal bowel sounds Skin General skin exam: no rashes or lesions noted Neuro General: patient oriented x3 and no focal motor deficits Speech: No Abnormal speech present Extrem General: Yes no clubbing, cyanosis or edema Psych Affect: Anxious affect present Assessment & Plan Assessment & Plan (1) Chest pain: Code(s): R07.9 - Chest pain, unspecified Category: Medical Plan: Chest pain syndrome in this young man most of the episodes in relation to elevated blood pressure. Chest pain syndrome has improved but still present intermittently and not always with exertion. Atypical symptoms although given his longstanding history of insulin-requiring diabetes for more than a decade as well as hypertension family history ischemic heart disease needs to be ruled out despite his age. I would suggest him to undergo exercise myocardial perfusion imaging for further evaluation for myocardial ischemia. Further treatment based on the findings. Other possibility includes subendocardial ischemia related to cardiomyopathy and elevated blood pressure in absence of epicardial coronary disease. This was discussed with him. Continue aggressive blood pressure control and risk factor modification. Given his longstanding diabetes and hypertension should be on statin therapy, high-intensity to target goal LDL less than 70 mg/dL. (2) Cardiomyopathy: Code(s): I42.9 - Cardiomyopathy, unspecified Category: Medical Plan: Mild cardiomyopathy may be related to diabetes or hypertension. Continue current neurohormonal modulation with losartan as well as carvedilol. Can continue to maximize losartan. Follow-up echocardiogram on annual basis. Importance of aggressive blood pressure control was discussed. He is currently not having any signs or symptoms of heart failure. Can continue Jardiance therapy as other neurohormonal modulator. Goal blood pressure less than 130/84. Low-salt diet was discussed. Signs and symptoms of heart failure were discussed. Will follow up in the clinic in 6 weeks time, sooner p.r.n.. Thank you for allowing me to partake in his care Orders: Orders Basic Metabolic Panel 1 Week E11.21 - Type 2 diabetes mellitus with diabetic nephropathy NM cardiolite stress test 2 Weeks I42.9 - Cardiomyopathy, unspecified, R07.9 - Chest pain, unspecified Lipid Panel 1 Week I10 - Essential (primary) hypertension, I25.10 - Atherosclerotic heart disease of [place] coronary artery without angina pectoris CA stress test 03/03/24 I42.9 - Cardiomyopathy, unspecified, R07.9 - Chest pain, unspecified CA echo transthoracic complete 4 Months I42.9 - Cardiomyopathy, unspecified Medications: New losartan 50 mg PO DAILY 30 tabs 5RF Discontinued losartan Discontinued Reason: Doctor's Order 25 mg See Protocol PO DAILY 30 tabs 0RF Coding Level of Care Code New Pt Level 4 (44605) Complex EM visit Add On G2211 Diagnoses Chest pain R07.9 Cardiomyopathy I42.9
[2024-03-03 15:11] VITALS: BP 134/80; PULSE 77; BMI 31.8
== END 2024-03-03 15:36 | disposition home or self-care (01) ==
PROVIDERS: PCP Registered Nurse; Visit Provider Internal Medicine Cardiovascular Disease
DX: R07.9 Chest pain, unspecified (principal); I42.9 Cardiomyopathy, unspecified
CPT/HCPCS: 99214

== ENCOUNTER → 2024-03-03 15:07 | Outpatient (BNVA) | payer MEDICAID, SELFPAY | PROVIDERS: PCP Registered Nurse; Visit Provider Internal Medicine Cardiovascular Disease | DX: R07.9 Chest pain, unspecified (principal); I42.9 Cardiomyopathy, unspecified | CPT/HCPCS: 99212 ==

== ENCOUNTER 2024-03-11 16:18 | Outpatient (REF) | payer MEDICAID, SELFPAY ==
--- NOTE | ~2024-03-11 | US_ITS ---
EXAMINATION: US KIDNEY BILATERAL HISTORY: N18.2 - Chronic kidney disease, stage 2 (mild) TECHNIQUE: Real-time grayscale ultrasound imaging of the kidneys was performed and images were reviewed. COMPARISON: Correlation is made with a CT of the abdomen dated 05/20/2022. FINDINGS: Right kidney: The right kidney measures 12.8 x 7.6 x 5.9 cm. Renal parenchymal echotexture and thickness are normal. There are no masses. There is no hydronephrosis or renal calculi. Left Kidney: The left kidney measures 11.3 x 6.2 x 6.5 cm. Renal parenchymal echotexture and thickness are normal. There are no masses. There is no hydronephrosis or renal calculi. US/US renal BI IMPRESSION: Unremarkable renal ultrasound. Electronically signed by: Martin Puentes MD 03/13/2024 11:32 AM [facility]
== END 2024-03-11 16:19 | disposition home or self-care (01) ==
LOC: HO.US 16:18
PROVIDERS: PCP Registered Nurse; Visit Provider Nurse Practitioner Family
DX: I12.9 Hypertensive chronic kidney disease with stage 1 through stage 4 chronic kidney disease, or unspecified chronic kidney disease (principal); N18.2 Chronic kidney disease, stage 2 (mild); N17.9 Acute kidney failure, unspecified
CPT/HCPCS: 76775

== ENCOUNTER → 2024-03-11 16:20 | Outpatient (BNV) | payer MEDICAID, SELFPAY | PROVIDERS: PCP Registered Nurse; Visit Provider Radiology Diagnostic Radiology | DX: N18.2 Chronic kidney disease, stage 2 (mild) (principal) | CPT/HCPCS: 76775 ==

== ENCOUNTER 2024-03-13 11:32 | Observation (INO) | payer MEDICAID, SELFPAY ==
[2024-03-13] VITALS (11 sets, daily range): BP systolic 156–223; BP diastolic 74–112; PULSE 78–110; RESP 16–24; TEMP 36.7–37.4; O2SAT 95–100; BMI 32.9
--- NOTE | ~2024-03-13 | XR_ITS ---
EXAMINATION: XR CHEST CLINICAL INFORMATION: sever abdominal pain COMPARISON: 05/20/2022. TECHNIQUE: Frontal view of the chest was obtained. FINDINGS: Cardiac, hilar, and mediastinal contours are normal. The lungs are clear bilaterally. No pneumothorax or effusion. No soft tissue or osseous abnormalities. XR/XR chest 1V IMPRESSION: Normal chest. Electronically signed by: Amarjit Kim MD 03/13/2024 12:18 PM [facility] [place]
--- NOTE | 2024-03-13 11:39 | ED_ITS ---
HPI - General Adult General Chief complaint: Abdominal Pain Stated complaint: N/V/D,FLU-LIKE Time Seen by Provider: 03/13/24 11:35 History of Present Illness ED Provider: Hua HILL narrative: The patient is a 28-year-old male. He has a history of multiple medical problems including type 2 diabetes and a cardiomyopathy. He also has a history of hospitalizations for episodes of significant vomiting associated with worsening of his chronic renal insufficiency. The patient was hospitalized twice in February of 2024 for vomiting and an acute kidney injury. The patient is a marijuana user and has been felt to have cannabis hyperemesis in the past. The patient presents to the emergency room this morning complaining of severe abdominal pain nausea, vomiting, and diarrhea. He arrived by ambulance this morning. The patient looked extremely uncomfortable and was unable to give any additional history. Related Data Home Medications ?Medication ?Instructions ?Recorded ?Confirmed empagliflozin 10 mg tablet 10 mg PO DAILY 10/29/23 03/03/24 (Jardiance) insulin glargine 100 unit/mL (3 10 unit subcut BEDTIME 10/29/23 03/03/24 mL) subcutaneous pen (Lantus Solostar U-100 Insulin) carvedilol 25 mg tablet 25 mg PO BID 02/06/24 03/03/24 amlodipine 10 mg tablet 10 mg PO DAILY 02/25/24 03/03/24 escitalopram oxalate 10 mg tablet 10 mg PO DAILY 02/25/24 03/03/24 pantoprazole 20 mg tablet,delayed 40 mg PO DAILY 03/03/24 03/03/24 release Previous Rx's ?Medication ?Instructions ?Recorded losartan 50 mg tablet 50 mg PO DAILY #30 tabs 03/03/24 Allergies Allergy/AdvReac Type Severity Reaction Status Date / Time No Known Allergies Allergy Verified 03/13/24 11:38 [No Known Allergies*] Review of Systems 2 Review of Systems: Yes all other systems are reviewed and are negative PMFSH Past Medical History Medical History (Updated 03/13/24 @ 17:16 by Stefan Sequeira MD) Cannabis use disorder Hypertension Anxiety Chest pain ADHD Generalized anxiety disorder Type 2 diabetes mellitus Cannabis hyperemesis syndrome concurrent with and due to cannabis dependence Hypertension Surgical History History of eye surgery (~06/2022) Family History Family History (Updated 03/03/24 @ 15:19 by CASSIE Oden) Father HTN (hypertension) Mother No problems noted. Social History Social History Household Members: Family Housing: Apartment Do you presently have visiting nurse or other home services: No Patient Tobacco Use Status: Never used Tobacco Smoked in Last 30 Days: No e-Cigarette/Vaping Use: Never Used Second Hand Smoke Exposure: No (N/A) Use of substances other than those prescribed or required for medical reasons: Yes Substance Use Type: Marijuana Advance Directives: Yes Advance Directives on File: Yes Advance Directives Date on File: 11/01/23 service: No Physical Exam ED Vital Signs: Vital Signs - 24 hr 03/13/24 11:36 03/13/24 11:50 03/13/24 14:39 Temperature 98.1 F 98.8 F Pulse Rate 110 H 99 94 Respiratory Rate 24 H 22 H 16 Blood Pressure 223/96 H 157/74 H Pulse Oximetry 100 97 Oxygen Delivery Method Room Air Room Air 03/13/24 16:20 Temperature 98.6 F Pulse Rate 102 H Respiratory Rate 16 Blood Pressure 189/112 H Pulse Oximetry 98 Oxygen Delivery Method Room Air BMI result Body Mass Index 32.9 Const Other: The patient is a 28-year-old male who is very chronically ill-appearing and looks considerably older than his age. He looks acutely uncomfortable as well and was vomiting significantly HENMT Other: The patient has left eye seems to exhibit some strabismus but face otherwise seems symmetrical. Mucous membranes not obviously dry. Eyes Other: The patient's left eye seems deviated. The patient reports he does not see anything out of the left eye. Right eye appears normal with a reactive pupil. Neck Neck: Yes full ROM and Yes no lymphadenopathy Resp Effort & Inspection: normal respiratory effort Auscultation: clear to auscultation bilaterally Cardio Rate: regular rate Rhythm: regular rhythm Heart sounds: S1 normal heart sound present and S2 normal heart sound present GI Other: The patient's abdomen is soft. There was some epigastric tenderness without rebound or guarding Skin Other: Skin is pale and dry Neuro Other: The patient was awake but vomiting a great deal and seemed completely distracted by his vomiting. He reports no vision of the left eye. Face seems symmetrical. He seems to have symmetrical strength in his extremities. Extrem Other: No peripheral edema Medications Administered Discontinued Medications Generic Name Dose Route Start Last Admin Trade Name Sony PRN Reason Stop Dose Admin Diphenhydramine HCl 50 mg 03/13/24 11:41 03/13/24 11:46 Diphenhydramine Hcl 50 Mg/Ml Vial IVPUSH 03/13/24 11:42 50 mg ONCE ONE Administration Famotidine 20 mg 03/13/24 13:01 03/13/24 13:10 Famotidine/Pf 20 Mg/2 Ml Vial IVPUSH 03/13/24 13:02 20 mg ONCE ONE Administration Haloperidol Lactate 5 mg 03/13/24 11:41 03/13/24 11:49 Haloperidol Lactate 5 Mg/Ml Vial IVPUSH 03/13/24 11:42 5 mg ONCE ONE Administration Haloperidol Lactate 5 mg 03/13/24 13:00 03/13/24 13:09 Haloperidol Lactate 5 Mg/Ml Vial IVPUSH 03/13/24 13:01 5 mg ONCE STA Administration Lactated Ringer's 1,000 mls @ 999 mls/hr 03/13/24 13:00 03/13/24 14:29 Lr IV 03/13/24 14:00 Infused .Q1H1M PRIYANKA Infusion Lactated Ringer's 1,000 mls @ 999 mls/hr 03/13/24 15:15 03/13/24 16:19 Lr IV 03/13/24 16:15 Infused .Q1H1M PRIYANKA Infusion Lorazepam 1 mg 03/13/24 13:00 03/13/24 13:07 Lorazepam 2 Mg/Ml Vial IVPUSH 03/13/24 13:01 1 mg ONCE ONE Administration Medical Decision Making Medical Decision Making [facility] Narrative: The patient is a chronically ill 28-year-old with type 2 diabetes, a cardiomyopathy, and problems with hypertension. He also has problems with cannabis hyperemesis. He presents today with vomiting highly suggestive of another episode of cannabis hyperemesis. He was treated with IV haloperidol and IV fluids. The haloperidol was effective but he required a 2nd dose and he was also given a dose of lorazepam. He is somewhat hypertensive but not severely so. The patient's labs show an exacerbation of the patient's chronic renal insufficiency. He has a mild white count elevation of 13,000 but an unremarkable CRP. The patient's renal function improved slightly after 2 L of IV fluids. He continued to complain of ongoing nausea. My overall impression is that he is not sufficiently well for discharge, especially given his history of diabetes and hypertension. I think he will require hospitalization for further treatment and safe discharge. Lab Data 03/13/24 11:45 03/13/24 16:26 Labs: Lab Results 03/13/24 03/13/24 03/13/24 Range/Units 11:45 11:53 13:05 WBC 13.7 H (4.8-10.8) X10*3/uL RBC 3.82 L (4.60-5.80) X10*6/uL Hgb 11.7 L (14.0-18.0) g/dl Hct 33.3 L (42.0-52.0) % MCV 87.2 (80.0-98.0) fL MCH 30.6 (27.0-33.0) pg MCHC 35.1 (31.0-36.0) g/dl RDW 12.6 (11.0-16.0) % Plt Count 296 (160-400) X10*3/uL MPV 10.0 (9.4-12.4) fL Immature Gran % (Auto) 0.4 (0.0-0.4) % Neut % (Auto) 84.7 H (45-73) % Lymph % (Auto) 10.1 L (20-40) % [place] % (Auto) 3.9 (2-11) % Eos % (Auto) 0.5 (0-4) % Baso % (Auto) 0.4 (0-2) % Lymph # (Auto) 1.4 (1.2-4.9) X10*3/uL [place] # (Auto) 0.5 (0.1-1.2) X10*3/uL Eos # (Auto) 0.1 (0.0-0.4) X10*3/uL Baso # (Auto) 0.1 (0.0-0.2) X10*3/uL Abs Immat Gran (auto) 0.06 H (0.00-0.03) X10*3/uL Absolute Neuts (auto) 11.6 H (2.0-8.3) x10*3/uL Absolute Nucleated RBC 0.000 (0.0-0.012) X10*3/uL Nucleated RBC % (auto) 0.0 (0.0-0.2) /100WBC PT 10.1 L (10.9-12.4) SEC INR 0.9 (0.9-1.1) VBG pH 7.52 H (7.32-7.43) VBG pCO2 29 mmHg VBG pO2 61 mmHg VBG HCO3 24 (22-26) mmol/L VBG O2 Saturation 92.0 % VBG Base Excess 2.4 mmol/L Sodium 138 (135-145) mmol/L Potassium 5.1 D (3.3-5.1) mmol/L Chloride 106 (96-108) mmol/L Carbon Dioxide 22 (22-29) mmol/L Anion Gap 15 (12-20) BUN 30 H (9-16) mg/dL Creatinine 1.68 H (0.5-1.4) mg/dL Estim Creat Clear Calc 75.3 Estimated GFR 48 Random Glucose 259 H (60-115) mg/dL Calcium 9.7 D (8.4-10.2) mg/dL Magnesium 2.4 (1.6-2.6) mg/dL Total Bilirubin 0.7 (0.0-1.0) mg/dL Direct Bilirubin 0.2 (0.0-0.5) mg/dL AST 28 (5-37) U/L ALT 16 (0-40) U/L Alkaline Phosphatase 92 (39-117) U/L Troponin I High Sens < 2.7 (<3.5-35.0) ng/L C-Reactive Protein 0.28 (< or = 0.50) mg/dL B-Natriuretic Peptide 154 H (<100) pg/mL Total Protein 7.8 (6.5-8.0) g/dL Albumin 4.1 (3.5-5.0) g/dL Lipase 32 (8-78) U/L Beta-Hydroxybutyrate 0.71 H (0.02-0.27) mmol/L Urine Color Yellow Urine Appearance Clear Urine pH 7.5 (5.0-9.0) Ur Specific [place] 1.020 (1.005-1.025) Urine Protein 300 (3+) H (Neg-Trace) mg/dL Urine Glucose (UA) >=1000 H (Negative) mg/dL Urine Ketones Trace (Negative) mg/dL Urine Blood Large (3+) H (Negative) Urine Nitrite Negative (Negative) Ur Leukocyte Esterase Negative (Negative) Urine RBC >20 H (0-2) /HPF Urine WBC 0-5 (0-5) /HPF Ur Squamous Epith Cells 0-2 (0-2) /HPF Urine Bacteria None Seen (None Seen) Hyaline Casts 0-2 (0-2) /LPF Urine Opiates Screen Not Detected (Not Detect) Ur Buprenorphine Scrn Not Detected (Not Detect) ng/mL Ur Oxycodone Screen Not Detected (Not Detect) ng/mL Urine Methadone Screen Not Detected (Not Detect) ng/mL Urine Fentanyl Screen Not Detected (Not Detect) Ur Barbiturates Screen Not Detected (Not Detect) Ur Phencyclidine Scrn Not Detected (Not Detect) Ur Amphetamines Screen Not Detected (Not Detect) U Benzodiazepines Scrn Not Detected (Not Detect) Urine Cocaine Screen Not Detected (Not Detect) U Marijuana (THC) Screen POSITIVE H (Not Detect) Ethyl Alcohol < 10 mg/dL Influenza Type A (PCR) NEGATIVE (Negative) Influenza Type B (PCR) NEGATIVE (Negative) RSV RNA Qual (PCR) NEGATIVE (Negative) SARS-CoV-2 RNA (RT-PCR) NEGATIVE (Negative) 03/13/24 Range/Units 16:26 WBC (4.8-10.8) X10*3/uL RBC (4.60-5.80) X10*6/uL Hgb (14.0-18.0) g/dl Hct (42.0-52.0) % MCV (80.0-98.0) fL MCH (27.0-33.0) pg MCHC (31.0-36.0) g/dl RDW (11.0-16.0) % Plt Count (160-400) X10*3/uL MPV (9.4-12.4) fL Immature Gran % (Auto) (0.0-0.4) % Neut % (Auto) (45-73) % Lymph % (Auto) (20-40) % [place] % (Auto) (2-11) % Eos % (Auto) (0-4) % Baso % (Auto) (0-2) % Lymph # (Auto) (1.2-4.9) X10*3/uL [place] # (Auto) (0.1-1.2) X10*3/uL Eos # (Auto) (0.0-0.4) X10*3/uL Baso # (Auto) (0.0-0.2) X10*3/uL Abs Immat Gran (auto) (0.00-0.03) X10*3/uL Absolute Neuts (auto) (2.0-8.3) x10*3/uL Absolute Nucleated RBC (0.0-0.012) X10*3/uL Nucleated RBC % (auto) (0.0-0.2) /100WBC PT (10.9-12.4) SEC INR (0.9-1.1) VBG pH (7.32-7.43) VBG pCO2 mmHg VBG pO2 mmHg VBG HCO3 (22-26) mmol/L VBG O2 Saturation % VBG Base Excess mmol/L Sodium 140 (135-145) mmol/L Potassium 4.7 (3.3-5.1) mmol/L Chloride 107 (96-108) mmol/L Carbon Dioxide 27 (22-29) mmol/L Anion Gap 11 L (12-20) BUN 25 H (9-16) mg/dL Creatinine 1.55 H (0.5-1.4) mg/dL Estim Creat Clear Calc 81.7 Estimated GFR 53 Random Glucose 156 H (60-115) mg/dL Calcium 8.6 D (8.4-10.2) mg/dL Magnesium (1.6-2.6) mg/dL Total Bilirubin (0.0-1.0) mg/dL Direct Bilirubin (0.0-0.5) mg/dL AST (5-37) U/L ALT (0-40) U/L Alkaline Phosphatase (39-117) U/L Troponin I High Sens (<3.5-35.0) ng/L C-Reactive Protein (< or = 0.50) mg/dL B-Natriuretic Peptide (<100) pg/mL Total Protein (6.5-8.0) g/dL Albumin (3.5-5.0) g/dL Lipase (8-78) U/L Beta-Hydroxybutyrate (0.02-0.27) mmol/L Urine Color Urine Appearance Urine pH (5.0-9.0) Ur Specific [place] (1.005-1.025) Urine Protein (Neg-Trace) mg/dL Urine Glucose (UA) (Negative) mg/dL Urine Ketones (Negative) mg/dL Urine Blood (Negative) Urine Nitrite (Negative) Ur Leukocyte Esterase (Negative) Urine RBC (0-2) /HPF Urine WBC (0-5) /HPF Ur Squamous Epith Cells (0-2) /HPF Urine Bacteria (None Seen) Hyaline Casts (0-2) /LPF Urine Opiates Screen (Not Detect) Ur Buprenorphine Scrn (Not Detect) ng/mL Ur Oxycodone Screen (Not Detect) ng/mL Urine Methadone Screen (Not Detect) ng/mL Urine Fentanyl Screen (Not Detect) Ur Barbiturates Screen (Not Detect) Ur Phencyclidine Scrn (Not Detect) Ur Amphetamines Screen (Not Detect) U Benzodiazepines Scrn (Not Detect) Urine Cocaine Screen (Not Detect) U Marijuana (THC) Screen (Not Detect) Ethyl Alcohol mg/dL Influenza Type A (PCR) (Negative) Influenza Type B (PCR) (Negative) RSV RNA Qual (PCR) (Negative) SARS-CoV-2 RNA (RT-PCR) (Negative) Independent Interpretation I performed an independent interpretation of an: EKG Interpretation: EKG at 1209 shows sinus tachycardia at 111 beats per minute. No significant change from previous EKG. No definite acute findings other than tachycardia. Discharge Plan Discharge Clinical Impression: Intractable vomiting with nausea, Acute dehydration Patient Disposition: Home, Self-Care Prescriptions: No Action carvedilol 25 mg tablet 25 mg PO BID pantoprazole 20 mg tablet,delayed release (DR/EC) 40 mg PO DAILY insulin glargine [Lantus Solostar U-100 Insulin] 100 unit/mL (3 mL) insulin pen 10 unit subcut BEDTIME Jardiance 10 mg tablet 10 mg PO DAILY amlodipine 10 mg tablet 10 mg PO DAILY escitalopram oxalate 10 mg tablet 10 mg PO DAILY losartan 50 mg tablet 50 mg PO DAILY Qty: 30 5RF Print Language: Uzbek
--- NOTE | 2024-03-13 11:39 | ECG_ITS ---
Test Reason : VOMITING Blood Pressure : */* mmHG Vent. Rate : 111 BPM Atrial Rate : 111 BPM P-R Int : 134 ms QRS Dur : 96 ms QT Int : 344 ms P-R-T Axes : 65 36 68 degrees QTcB Int : 467 ms Sinus tachycardia Otherwise normal ECG When compared with ECG of 25-Feb-2024 12:18, No significant change was found Referred By: Stefan Sequeira Electronically Signed By: JEANE LAMA
[2024-03-13] MEDS: diphenhydrAMINE HCL 50 MG/ML VIAL IVPUSH (11:46)
[2024-03-13] MEDS: Haloperidol Lactate 5 MG/ML VIAL IVPUSH ×2 (11:49→13:09)
[2024-03-13 11:52] LABS: MANUAL DIFF FLAG NO
[2024-03-13 11:55] LABS: Basophils Absolute Auto 0.1 X10*3/uL (0.0-0.2); Basophils Percent Auto 0.4 % (0-2); Eosinophils Absolute Auto 0.1 X10*3/uL (0.0-0.4); Eosinophils Percent Auto 0.5 % (0-4); Hematocrit 33.3 % (42.0-52.0); Hemoglobin 11.7 g/dl (14.0-18.0); Imm Gran Abs Auto 0.06 X10*3/uL (0.00-0.03); Imm Gran Pct Auto 0.4 % (0.0-0.4); Lymphocytes Absolute Auto 1.4 X10*3/uL (1.2-4.9); Lymphocytes Percent Auto 10.1 % (20-40); Mean Corpuscular HGB Conc 35.1 g/dl (31.0-36.0); Mean Corpuscular Hemoglobin 30.6 pg (27.0-33.0); Mean Corpuscular Volume 87.2 fL (80.0-98.0); Monocytes Absolute Auto 0.5 X10*3/uL (0.1-1.2); Monocytes Percent Auto 3.9 % (2-11); Neutrophils Absolute Auto 11.6 x10*3/uL (2.0-8.3); Neutrophils Percent Auto 84.7 % (45-73); Platelet Count 296 X10*3/uL (160-400); Red Blood Count 3.82 X10*6/uL (4.60-5.80); Red Cell Distribution Width 12.6 % (11.0-16.0); White Blood Count 13.7 X10*3/uL (4.8-10.8)
[2024-03-13 12:03] LABS: VBG Base Excess 2.4 mmol/L; VBG HCO3 24 mmol/L (22-26); VBG pCO2 29 mmHg; VBG pH 7.52 (7.32-7.43); VBG pO2 61 mmHg
[2024-03-13 12:04] LABS: Venous Blood Gas Refer to POC result
[2024-03-13 12:06] LABS: INTERNATIONAL NORM RATIO 0.9 (0.9-1.1); Prothrombin Time 10.1 SEC (10.9-12.4)
[2024-03-13 12:15] LABS: B Type Natriuretic Peptide 154 pg/mL (<100)
[2024-03-13 12:16] LABS: Alanine Aminotransferase 16 U/L (0-40); Albumin Level 4.1 g/dL (3.5-5.0); Anion Gap 15 (12-20); Aspartate Amino Transferase 28 U/L (5-37); Beta-Hydroxybutyrate 0.71 mmol/L (0.02-0.27); Bilirubin Direct 0.2 mg/dL (0.0-0.5); Bilirubin Total 0.7 mg/dL (0.0-1.0); Blood Urea Nitrogen 30 mg/dL (9-16); C Reactive Protein 0.28 mg/dL (< or = 0.50); Calcium 9.7 mg/dL (8.4-10.2); Carbon Dioxide 22 mmol/L (22-29); Chloride 106 mmol/L (96-108); Creatinine Clr Calc Pharmacy 75.3; Estimated Glomerular Filt Rate 48; Ethanol < 10 mg/dL; Glucose Random 259 mg/dL (60-115); Lipase 32 U/L (8-78); Magnesium 2.4 mg/dL (1.6-2.6); Potassium 5.1 mmol/L (3.3-5.1); Sodium 138 mmol/L (135-145); Total Protein 7.8 g/dL (6.5-8.0)
[2024-03-13 12:18] LABS: Troponin-I High Sensitivity < 2.7 ng/L (<3.5-35.0)
[2024-03-13 12:20] LABS: Alkaline Phosphatase 92 U/L (39-117)
[2024-03-13 12:32] LABS: Influenza A PCR NEGATIVE (Negative); Influenza B PCR NEGATIVE (Negative); Resp Syncy Virus RNA Qual PCR NEGATIVE (Negative); SARS COV2 PCR INHOUSE NEGATIVE (Negative)
[2024-03-13] MEDS: Lactated Ringers 1,000 ML 999 ML IV ×2 (12:59→15:15)
[2024-03-13] MEDS: LORazepam 2 MG/ML VIAL 1 MG IVPUSH (13:07)
[2024-03-13] MEDS: Famotidine/PF 20 MG/2 ML VIAL IVPUSH (13:10)
[2024-03-13 13:13] LABS: Appearance Urine Clear; Color Urine Yellow; Glucose Urine UA >=1000 mg/dL (Negative); Leukocyte Esterase Urine Negative (Negative); Nitrite Urine Negative (Negative); PH 7.5 (5.0-9.0); UMIC TRIGGER UACC YES; Urine Blood Large (3+) (Negative); Urine Ketones Trace mg/dL (Negative); Urine Protein 300 (3+) mg/dL (Neg-Trace)
[2024-03-13 13:29] LABS: Amphetamine Screen Urine Not Detected (Not Detect); Barbiturates, Urine Not Detected (Not Detect); Benzodiazepines Screen Urine Not Detected (Not Detect); Buprenorphine Scr Not Detected (Not Detect); Cannabinoid Screen Urine POSITIVE (Not Detect); Cocaine Screen Urine Not Detected (Not Detect); Fentanyl, urine Not Detected (Not Detect); Methadone Screen, Urine Not Detected (Not Detect); Opiate Screen Urine Not Detected (Not Detect); Oxycodone Screen Urine Not Detected (Not Detect); Phencyclidine Screen Urine Not Detected (Not Detect)
[2024-03-13 13:53] LABS: Bacteria Urine None Seen (None Seen); Hyaline Casts Urine 0-2 /LPF (0-2); RBC Urine >20 /HPF (0-2); Squamous Epithelial Cell Urine 0-2 /HPF (0-2); WBC Urine 0-5 /HPF (0-5)
--- NOTE | 2024-03-13 14:48 | PC.NURSE ---
Pt presents to ED via EMS from home for N/V and severe epigastric ABD pain starting this morning. Pt had had multiple episodes of this in the past and has been hospitalized. In acute distress on arrival, after medicated per MAY, pt sleeping and more comfortable. Alert and oriented, breathing even and unlabored, skin clammy. Denies SOB or CP, no fevers, coughs.
[2024-03-13 16:43] LABS: Anion Gap 11 (12-20); Blood Urea Nitrogen 25 mg/dL (9-16); Calcium 8.6 mg/dL (8.4-10.2); Carbon Dioxide 27 mmol/L (22-29); Chloride 107 mmol/L (96-108); Creatinine Clr Calc Pharmacy 81.7; Estimated Glomerular Filt Rate 53; Glucose Random 156 mg/dL (60-115); Potassium 4.7 mmol/L (3.3-5.1); Sodium 140 mmol/L (135-145)
--- NOTE | 2024-03-13 17:32 | P.HPHOSP_ITS ---
History of Present Illness Date of Service: 03/13/24 Attending physician on admission: Yolanda Gonzales Chief Complaint: Nausea and vomiting Pt is a 28-year-old male with a PMH significant for?poorly controlled HTN, insulin-dependent type 2 diabetes, CKD 2, blind left eye, cannabis hyperemesis syndrome, and poorly controlled anxiety who presents to the ED with?with intractable nausea and vomiting since earlier this morning. Pt is very somnolent at time of interview and exam, and difficult to keep awake to fully answer questions. Pt reports has had diffuse abdominal pain associated with nausea and vomiting. Unclear if pt had been experiencing diarrhea: Initial triage note indicates experienced diarrhea, though denied as such during current interview. Pt unable to provide much more additional history. Of note, this is patient's 5th hospitalization for similar symptoms in the past 5 months. Was previously admitted to the hospital here at [facility] twice in 02/2024. Pt has been known to be a daily user of marijuana, the currently states he has not smoked in a few days. Pt also has a history of significant uncontrolled anxiety and has yet to establish outpatient psychiatric care due to insurance issues. In the ED pt was tachycardic up to 110, tachypneic up to 24, and hypertensive up to 223/96. Labs were significant for leukocytosis 13.7, initial creatinine 1.68 improved to 1.55 4 hours later, and mildly elevated BNP of 154. UA negative for UTI. CXR showed no acute cardiopulmonary process. EKG demonstrated sinus tachycardia of 111. Pt was treated with diphenhydramine, Haldol 5 mg IV x2 doses, Ativan, IVF, and Protonix. Pt will be admitted to the hospital under observation for treatment and further evaluation of KARUNA on CKD secondary to intractable nausea and vomiting likely multifactorial from cannabis hyperemesis syndrome and uncontrolled anxiety. Review of Systems 2 Review of Systems: Negative except for that which stated in the [facility] Medical History (Updated 03/13/24 @ 17:46 by ANGEL Garcia) Cannabis hyperemesis syndrome concurrent with and due to cannabis dependence Cannabis use disorder Hypertension Anxiety Chest pain ADHD Generalized anxiety disorder Type 2 diabetes mellitus Hypertension Family History Father HTN (hypertension) Mother No problems noted. Surgical History History of eye surgery (~06/2022) Social History Household Members: Family Housing: Apartment Do you presently have visiting nurse or other home services: No Patient Tobacco Use Status: Never used Tobacco Smoked in Last 30 Days: No e-Cigarette/Vaping Use: Never Used Second Hand Smoke Exposure: No (N/A) Use of substances other than those prescribed or required for medical reasons: Yes Substance Use Type: Marijuana Currently Displaying Signs/Symptoms of Drug Intoxication Withdrawal: No Advance Directives: Yes Advance Directives on File: Yes Advance Directives Date on File: 11/01/23 service: No Meds Allergies Allergy/AdvReac Type Severity Reaction Status Date / Time No Known Allergies Allergy Verified 03/13/24 11:38 [No Known Allergies*] Active Medications: Current Medications Acetaminophen (Acetaminophen 325 Mg Tablet) 650 mg PO Q6H PRN PRN Reason: Pain, Mild 1-3,fever,headache Calcium Carbonate (Calcium Carbonate 750 Mg Tab.Chew) 750 mg PO Q4H PRN PRN Reason: Heartburn Enoxaparin Sodium (Enoxaparin Sodium 40 Mg/0.4 Ml Syringe) 40 mg SUBCUT Q24H PRIYANKA Lactated Ringer's (Lr) 1,000 mls @ 80 mls/hr IVCONT .[id number] PRIYANKA Labetalol HCl (Labetalol Hcl 100 Mg/20 Ml Vial) 5 mg IVPUSH Q6H PRN PRN Reason: SBP >170 Magnesium Hydroxide (Milk Of Magnesia 30 Ml Oral.Susp) 30 ml PO DAILY PRN PRN Reason: Constipation Melatonin (Melatonin 3 Mg Tablet) 6 mg PO BEDTIME PRN PRN Reason: Insomnia Ondansetron HCl (Ondansetron Hcl 4 Mg/2 Ml Vial) 4 mg IVPUSH Q8H PRN PRN Reason: Nausea and Vomiting Sodium Chloride (0.9 % Sodium Chloride Flush 3 Ml Syringe) 3 ml IVFLUSH QSHIFT [facility] Home Medications ?Medication ?Instructions ?Recorded ?Confirmed ?Last Taken ?Type empagliflozin 10 mg tablet 10 mg PO DAILY 10/29/23 03/13/24 03/12/24 History (Jardiance) insulin glargine 100 unit/mL (3 10 unit subcut BEDTIME 08/03/13/24 03/12/24 History mL) subcutaneous pen (Lantus Solostar U-100 Insulin) carvedilol 25 mg tablet 25 mg PO BID 02/06/24 03/13/24 03/12/24 History amlodipine 10 mg tablet 10 mg PO DAILY 02/25/24 03/13/24 03/12/24 History escitalopram oxalate 10 mg tablet 10 mg PO DAILY 02/25/24 03/13/24 03/12/24 History pantoprazole 20 mg tablet,delayed 40 mg PO DAILY 03/03/24 03/13/24 03/12/24 History release Physical Exam 2 Vital Signs and Narrative: Vital Signs: Last Vital Signs Temp 98.6 F 03/13/24 16:20 Pulse 102 H 03/13/24 16:20 Resp 16 03/13/24 16:20 BP 189/112 H 03/13/24 16:20 Pulse Ox 98 03/13/24 16:20 O2 Del Method Room Air 03/13/24 16:20 BMI result Body Mass Index 32.9 General: AOx3, somnolent but arousable, though falling back asleep and minimally participatory in interview and exam. In no acute distress Resp: Mild expiratory wheezing bilaterally CVS: S1, S2, regular rhythm, tachycardic GI: +BS, NT, no distention Skin: Warm, dry Neuro: Cranial nerves II-XII grossly intact bilaterally. Motor grossly intact bilaterally Extremities: No edema Results Labs 03/14/24 05:52 03/14/24 05:52 Labs: Laboratory Results - last 24 hr 03/13/24 03/13/24 03/13/24 11:45 11:53 13:05 MCV 87.2 MCH 30.6 MCHC 35.1 RDW 12.6 Plt Count 296 MPV 10.0 Immature Gran % (Auto) 0.4 Neut % (Auto) 84.7 H Lymph % (Auto) 10.1 L [place] % (Auto) 3.9 Eos % (Auto) 0.5 Baso % (Auto) 0.4 Lymph # (Auto) 1.4 [place] # (Auto) 0.5 Eos # (Auto) 0.1 Baso # (Auto) 0.1 Abs Immat Gran (auto) 0.06 H Absolute Neuts (auto) 11.6 H Absolute Nucleated RBC 0.000 Nucleated RBC % (auto) 0.0 PT 10.1 L INR 0.9 VBG pH 7.52 H VBG pCO2 29 VBG pO2 61 VBG HCO3 24 VBG O2 Saturation 92.0 VBG Base Excess 2.4 Anion Gap 15 Estim Creat Clear Calc 75.3 Estimated GFR 48 Random Glucose 259 H Calcium 9.7 D Magnesium 2.4 Total Bilirubin 0.7 Direct Bilirubin 0.2 AST 28 ALT 16 Alkaline Phosphatase 92 Troponin I High Sens < 2.7 C-Reactive Protein 0.28 B-Natriuretic Peptide 154 H Total Protein 7.8 Albumin 4.1 Lipase 32 Beta-Hydroxybutyrate 0.71 H Urine Color Yellow Urine Appearance Clear Urine pH 7.5 Ur Specific [place] 1.020 Urine Protein 300 (3+) H Urine Glucose (UA) >=1000 H Urine Ketones Trace Urine Blood Large (3+) H Urine Nitrite Negative Ur Leukocyte Esterase Negative Urine RBC >20 H Urine WBC 0-5 Ur Squamous Epith Cells 0-2 Urine Bacteria None Seen Hyaline Casts 0-2 Urine Opiates Screen Not Detected Ur Buprenorphine Scrn Not Detected Ur Oxycodone Screen Not Detected Urine Methadone Screen Not Detected Urine Fentanyl Screen Not Detected Ur Barbiturates Screen Not Detected Ur Phencyclidine Scrn Not Detected Ur Amphetamines Screen Not Detected U Benzodiazepines Scrn Not Detected Urine Cocaine Screen Not Detected U Marijuana (THC) Screen POSITIVE H Ethyl Alcohol < 10 Influenza Type A (PCR) NEGATIVE Influenza Type B (PCR) NEGATIVE RSV RNA Qual (PCR) NEGATIVE SARS-CoV-2 RNA (RT-PCR) NEGATIVE 03/13/24 16:26 MCV MCH MCHC RDW Plt Count MPV Immature Gran % (Auto) Neut % (Auto) Lymph % (Auto) [place] % (Auto) Eos % (Auto) Baso % (Auto) Lymph # (Auto) [place] # (Auto) Eos # (Auto) Baso # (Auto) Abs Immat Gran (auto) Absolute Neuts (auto) Absolute Nucleated RBC Nucleated RBC % (auto) PT INR VBG pH VBG pCO2 VBG pO2 VBG HCO3 VBG O2 Saturation VBG Base Excess Anion Gap 11 L Estim Creat Clear Calc 81.7 Estimated GFR 53 Random Glucose 156 H Calcium 8.6 D Magnesium Total Bilirubin Direct Bilirubin AST ALT Alkaline Phosphatase Troponin I High Sens C-Reactive Protein B-Natriuretic Peptide Total Protein Albumin Lipase Beta-Hydroxybutyrate Urine Color Urine Appearance Urine pH Ur Specific [place] Urine Protein Urine Glucose (UA) Urine Ketones Urine Blood Urine Nitrite Ur Leukocyte Esterase Urine RBC Urine WBC Ur Squamous Epith Cells Urine Bacteria Hyaline Casts Urine Opiates Screen Ur Buprenorphine Scrn Ur Oxycodone Screen Urine Methadone Screen Urine Fentanyl Screen Ur Barbiturates Screen Ur Phencyclidine Scrn Ur Amphetamines Screen U Benzodiazepines Scrn Urine Cocaine Screen U Marijuana (THC) Screen Ethyl Alcohol Influenza Type A (PCR) Influenza Type B (PCR) RSV RNA Qual (PCR) SARS-CoV-2 RNA (RT-PCR) Imaging Radiologist's Impressions: Impressions Chest X-Ray 03/13/24 11:39 IMPRESSION: Normal chest. Electronically signed by: Amarjit Kim MD 03/13/2024 12:18 PM [facility] [place] and Plan (1) KARUNA (acute kidney injury): Status: Acute (2) Cannabis hyperemesis syndrome concurrent with and due to cannabis dependence: Status: Acute Plan Pt is a 28-year-old male with a PMH significant for?poorly controlled HTN, insulin-dependent type 2 diabetes, CKD 2, blind left eye, cannabis hyperemesis syndrome, and poorly controlled anxiety who presents to the ED with?with intractable nausea and vomiting since earlier this morning. Pt will be admitted to the hospital under observation for treatment and further evaluation of KARUNA on CKD secondary to intractable nausea and vomiting likely multifactorial from cannabis hyperemesis syndrome and uncontrolled anxiety. KARUNA on CKD 2 Creatinine 1.68 at time of presentation, elevated from 1.32 on 02/26 Likely secondary to GI losses from intractable N/V and reduced p.o. intake Has multiple similar presentations to the hospital Patient received IVF in the ED Will place on maintenance fluids Follow creatinine Intractable nausea and vomiting Likely secondary to cannabis hyperemesis syndrome and unctonrolled anxiety Pt a longtime daily smoker of marijuana Will treat with IVF, Protonix, ondansetron, and capsaicin cream Consider Compazine x1 dose for intractable nausea Clear liquid diet for now, advance as tolerated Marijuana cessation counseled Uncontrolled anxiety Patient with history of extreme anxiety Recently stopped hydroxyzine due to blurry vision Does not have outpatient mental health care at the moment Continue escitalopram Psychiatry consult Pt needs to establish outpatient mental health care Hypertensive urgency Hx of poorly controlled HTN BP as high as 223/96 in the ED Continue carvedilol, amlodipine, losartan Labetalol p.r.n. for SBP>170 Leukocytosis Reactionary, not due to sepsis Tachycardia and tachypnea secondary to intractable nausea and vomiting, not due to sepsis No indication for antibiotics at this time Insulin-dependent type 2 diabetes Hold Jardiance for now due to reduced p.o. intake Will place on sliding scale insulin Continue Lantus at 50% Full Code Attending:?Dr. Gonzales DVT Prophylaxis: Lovenox Pt will be admitted to the hospital under observation for treatment and further evaluation of KARUNA on CKD secondary to intractable nausea and vomiting likely multifactorial from cannabis hyperemesis syndrome and uncontrollable anxiety. The pt will require administration of IVF and IV antiemetics, as well as close monitoring of labs. Quality Stroke Does the patient have a stroke diagnosis?: No VTE Prior VTE?: No VTE Risk Level:: Medical - moderate - high VTE Device Contraindication: Treatment Not Indicated VTE Drug Contraindication: N/A - Med Ordered
[2024-03-13] MEDS: Labetalol HCL 100 MG/20 ML VIAL IVPUSH ×2 (17:37→21:46)
[2024-03-13] MEDS: Enoxaparin Sodium 40 MG/0.4 ML SYRINGE SUBCUT (17:38)
[2024-03-13] MEDS: Lactated Ringers 1,000 ML 80 ML IVCONT (17:40)
--- NOTE | 2024-03-13 18:16 | PHA.MEDREC ---
Addendum entered by Forest Daly [facility] 03/13/24 18:26: Med rec reviewed Original Note: Pharmacy Consult ? Medication Reconciliation Pharmacy has completed the medication reconciliation. Spoke with patient and he confirmed his medications. He confirmed his Lantus Solostar U-100 Insulin and confirmed he is injecting 10 units at bedtime. He confirmed he is taking the Losartan 50mg tab once daily. He stated he was here at the end of February and stated the Dr wrote for Buspirone 5mg tabs and the patient stated when he tries to pick it up at the pharmacy they keep saying its put on hold and he does not know why. He confirmed he took all his medications last night.
[2024-03-13 21:03] LABS: Glucose, Whole Blood 103 mg/dL (60-115)
[2024-03-13] MEDS: Insulin Glargine,Hum.rec.anlog 100 UNIT/ML 10 ML VIAL SUBCUT (21:23)
--- NOTE | 2024-03-13 21:35 | PC.NURSE ---
Pt BP 197/94, not due for labatolol until 2337 per MAY. Inpatient MD Prabha Boateng aware via tiger text.
--- NOTE | 2024-03-13 21:41 | PC.NURSE ---
MD Boateng approved prn dose of labatolol to be given now
[2024-03-13] MEDS: amLODIPine Besylate 5 MG TABLET PO (22:33)
[2024-03-14 03:52] VITALS: BP 170/88; PULSE 95; RESP 18; TEMP 37.2; O2SAT 98
[2024-03-14] MEDS: LORazepam 0.5 MG TABLET PO (06:04)
[2024-03-14] MEDS: Pantoprazole Sodium 40 MG/10 ML VIAL IVPUSH (06:05)
[2024-03-14] MEDS: Lactated Ringers 1,000 ML 80 ML IVCONT (06:10)
[2024-03-14 06:27] LABS: Hemoglobin 10.6 g/dl (14.0-18.0); Mean Corpuscular HGB Conc 34.2 g/dl (31.0-36.0); Mean Corpuscular Volume 87.8 fL (80.0-98.0); Mean Platelet Volume 10.1 fL (9.4-12.4); Platelet Count 236 X10*3/uL (160-400); Red Blood Count 3.53 X10*6/uL (4.60-5.80); Red Cell Distribution Width 12.6 % (11.0-16.0)
[2024-03-14 06:42] LABS: Anion Gap 14 (12-20); Blood Urea Nitrogen 22 mg/dL (9-16); Calcium 9.2 mg/dL (8.4-10.2); Carbon Dioxide 24 mmol/L (22-29); Chloride 106 mmol/L (96-108); Creatinine Clr Calc Pharmacy 80.1; Estimated Glomerular Filt Rate 52; Glucose Random 109 mg/dL (60-115); Sodium 140 mmol/L (135-145)
[2024-03-14 07:02] VITALS: BP 181/87; PULSE 94; RESP 16; TEMP 37.4; O2SAT 97
[2024-03-14 07:14] LABS: Glucose, Whole Blood 121 mg/dL (60-115)
[2024-03-14 08:06] VITALS: BP 173/81; PULSE 94
--- NOTE | 2024-03-14 08:12 | PC.NURSE ---
BP elevated 173/81 pulse 94,pt c/o feeling anxious
[2024-03-14] MEDS: Escitalopram Oxalate 10 MG TABLET PO (09:15)
[2024-03-14] MEDS: Omeprazole 20 MG CAPSULE.DR PO (09:16)
[2024-03-14 09:18] VITALS: BP 178/84; PULSE 94
[2024-03-14] MEDS: carvediloL 25 MG TABLET PO (09:18)
[2024-03-14] MEDS: Losartan Potassium 50 MG TABLET PO (09:18)
--- NOTE | 2024-03-14 11:00 | MHC.CM.PN ---
pt lives with family,has own ride home dc plan home no servues
[2024-03-14 11:05] LABS: Glucose, Whole Blood 168 mg/dL (60-115)
--- NOTE | 2024-03-14 11:42 | PM.DS ---
DS: Providers Provider Date of Service: 03/14/24 Date of admission: 03/13/24 17:16 Date of discharge: 03/14/24 Primary care physician: CARL Gibbons Consults: 03/13/24 17:14 Consult to Psychiatry Routine Consulting Provider: [facility] [place] Covering Reason for consultation: Uncontrolled anxiety, no outpatient therapy Attending physician on discharge: Yolanda Gonzales Discharging clinician: Yolanda Gonzales DS: Diagnosis Discharge Diagnosis (1) KARUNA (acute kidney injury): Status: Acute (2) Cannabis hyperemesis syndrome concurrent with and due to cannabis dependence: Status: Acute DS: Summary Hospital Course Hospital Course: HPI:28-year-old male with a PMH significant for poorly controlled HTN, insulin-dependent type 2 diabetes, CKD 2, blind left eye, cannabis hyperemesis syndrome, and poorly controlled anxiety who presents to the ED with with intractable nausea and vomiting since earlier this morning. Pt is very somnolent at time of interview and exam, and difficult to keep awake to fully answer questions. Pt reports has had diffuse abdominal pain associated with nausea and vomiting. Unclear if pt had been experiencing diarrhea: Initial triage note indicates experienced diarrhea, though denied as such during current interview. Pt unable to provide much more additional history. Of note, this is patient's 5th hospitalization for similar symptoms in the past 5 months. Was previously admitted to the hospital here at [facility] [place] twice in 02/2024. Pt has been known to be a daily user of marijuana, the currently states he has not smoked in a few days. Pt also has a history of significant uncontrolled anxiety and has yet to establish outpatient psychiatric care due to insurance issues. In the ED pt was tachycardic up to 110, tachypneic up to 24, and hypertensive up to 223/96. Labs were significant for leukocytosis 13.7, initial creatinine 1.68 improved to 1.55 4 hours later, and mildly elevated BNP of 154. UA negative for UTI. CXR showed no acute cardiopulmonary process. EKG demonstrated sinus tachycardia of 111. Pt was treated with diphenhydramine, Haldol 5 mg IV x2 doses, Ativan, IVF, and Protonix. Pt will be admitted to the hospital under observation for treatment and further evaluation of KARUNA on CKD secondary to intractable nausea and vomiting likely multifactorial from cannabis hyperemesis syndrome and uncontrolled anxiety. Hospital course: Patient came with intractable nausea and vomiting : Patient was admitted with KARUNA, intractable nausea and vomiting in the setting of cannabis hyperemesis syndrome: Patient was given IV fluid Protonix Haldol, aldosterone, supportive care patient seems to be improved significantly, tolerating diet. With hydration KARUNA improved, patient is asymptomatic. Patient was strongly advised to think about abstaining from marijuana use. Also strongly advised and encouraged for p.o. hydration and p.o. intake. plan: strongly advised to think about abstaining from marijuana use. Also strongly advised and encouraged for p.o. hydration and p.o. intake. Above management discussed with the patient in detail length she understand and in agreement with the above plan, time spent 40 min. Time Attestation Total time managing care of this patient today: 40 mintues. Discharge Coordination Time (in mins): 40 min Quality: Safe Use of Opioids Does Pt have an Active Cancer Diagnosis on the Problem List?: No Quality: Stroke Does the patient have a stroke diagnosis?: No Physical Exam Vital Signs: Vital Signs: Last Vital Signs Temp 99.3 F 03/14/24 07:02 Pulse 94 03/14/24 09:18 Resp 16 03/14/24 07:02 BP 178/84 H 03/14/24 09:18 Pulse Ox 97 03/14/24 07:02 O2 Del Method Room Air 03/14/24 07:02 BMI result Body Mass Index 32.9 Appearance: Alert.? Oriented X3.? cvs: rrr, [id number] , no murmur res: clear to auscultation ,no rhonchii or wheezing abd: no rebound or guarding ,nt, bs present. ext pulses present , no cyanosis . neuro: axo3 , nonfocal. DS: Data Data Completed and Pending Labs on day of discharge: Laboratory Results - last 24 hr 03/13/24 03/13/24 03/13/24 11:45 11:53 13:05 WBC 13.7 H RBC 3.82 L Hgb 11.7 L Hct 33.3 L MCV 87.2 MCH 30.6 MCHC 35.1 RDW 12.6 Plt Count 296 MPV 10.0 Immature Gran % (Auto) 0.4 Neut % (Auto) 84.7 H Lymph % (Auto) 10.1 L [place] % (Auto) 3.9 Eos % (Auto) 0.5 Baso % (Auto) 0.4 Lymph # (Auto) 1.4 [place] # (Auto) 0.5 Eos # (Auto) 0.1 Baso # (Auto) 0.1 Abs Immat Gran (auto) 0.06 H Absolute Neuts (auto) 11.6 H Absolute Nucleated RBC 0.000 Nucleated RBC % (auto) 0.0 PT 10.1 L INR 0.9 VBG pH 7.52 H VBG pCO2 29 VBG pO2 61 VBG HCO3 24 VBG O2 Saturation 92.0 VBG Base Excess 2.4 Sodium 138 Potassium 5.1 D Chloride 106 Carbon Dioxide 22 Anion Gap 15 BUN 30 H Creatinine 1.68 H Estim Creat Clear Calc 75.3 Estimated GFR 48 POC Glucose Random Glucose 259 H Calcium 9.7 D Magnesium 2.4 Total Bilirubin 0.7 Direct Bilirubin 0.2 AST 28 ALT 16 Alkaline Phosphatase 92 Troponin I High Sens < 2.7 C-Reactive Protein 0.28 B-Natriuretic Peptide 154 H Total Protein 7.8 Albumin 4.1 Lipase 32 Beta-Hydroxybutyrate 0.71 H Urine Color Yellow Urine Appearance Clear Urine pH 7.5 Ur Specific [place] 1.020 Urine Protein 300 (3+) H Urine Glucose (UA) >=1000 H Urine Ketones Trace Urine Blood Large (3+) H Urine Nitrite Negative Ur Leukocyte Esterase Negative Urine RBC >20 H Urine WBC 0-5 Ur Squamous Epith Cells 0-2 Urine Bacteria None Seen Hyaline Casts 0-2 Urine Opiates Screen Not Detected Ur Buprenorphine Scrn Not Detected Ur Oxycodone Screen Not Detected Urine Methadone Screen Not Detected Urine Fentanyl Screen Not Detected Ur Barbiturates Screen Not Detected Ur Phencyclidine Scrn Not Detected Ur Amphetamines Screen Not Detected U Benzodiazepines Scrn Not Detected Urine Cocaine Screen Not Detected U Marijuana (THC) Screen POSITIVE H Ethyl Alcohol < 10 Influenza Type A (PCR) NEGATIVE Influenza Type B (PCR) NEGATIVE RSV RNA Qual (PCR) NEGATIVE SARS-CoV-2 RNA (RT-PCR) NEGATIVE 03/13/24 03/13/24 03/14/24 16:26 20:59 05:52 WBC 9.0 RBC 3.53 L Hgb 10.6 L Hct 31.0 L MCV 87.8 MCH 30.0 MCHC 34.2 RDW 12.6 Plt Count 236 MPV 10.1 Immature Gran % (Auto) Neut % (Auto) Lymph % (Auto) [place] % (Auto) Eos % (Auto) Baso % (Auto) Lymph # (Auto) [place] # (Auto) Eos # (Auto) Baso # (Auto) Abs Immat Gran (auto) Absolute Neuts (auto) Absolute Nucleated RBC 0.000 Nucleated RBC % (auto) 0.0 PT INR VBG pH VBG pCO2 VBG pO2 VBG HCO3 VBG O2 Saturation VBG Base Excess Sodium 140 140 Potassium 4.7 4.0 Chloride 107 106 Carbon Dioxide 27 24 Anion Gap 11 L 14 BUN 25 H 22 H Creatinine 1.55 H 1.58 H Estim Creat Clear Calc 81.7 80.1 Estimated GFR 53 52 POC Glucose 103 Random Glucose 156 H 109 Calcium 8.6 D 9.2 D Magnesium Total Bilirubin Direct Bilirubin AST ALT Alkaline Phosphatase Troponin I High Sens C-Reactive Protein B-Natriuretic Peptide Total Protein Albumin Lipase Beta-Hydroxybutyrate Urine Color Urine Appearance Urine pH Ur Specific [place] Urine Protein Urine Glucose (UA) Urine Ketones Urine Blood Urine Nitrite Ur Leukocyte Esterase Urine RBC Urine WBC Ur Squamous Epith Cells Urine Bacteria Hyaline Casts Urine Opiates Screen Ur Buprenorphine Scrn Ur Oxycodone Screen Urine Methadone Screen Urine Fentanyl Screen Ur Barbiturates Screen Ur Phencyclidine Scrn Ur Amphetamines Screen U Benzodiazepines Scrn Urine Cocaine Screen U Marijuana (THC) Screen Ethyl Alcohol Influenza Type A (PCR) Influenza Type B (PCR) RSV RNA Qual (PCR) SARS-CoV-2 RNA (RT-PCR) 03/14/24 03/14/24 07:10 10:59 WBC RBC Hgb Hct MCV MCH MCHC RDW Plt Count MPV Immature Gran % (Auto) Neut % (Auto) Lymph % (Auto) [place] % (Auto) Eos % (Auto) Baso % (Auto) Lymph # (Auto) [place] # (Auto) Eos # (Auto) Baso # (Auto) Abs Immat Gran (auto) Absolute Neuts (auto) Absolute Nucleated RBC Nucleated RBC % (auto) PT INR VBG pH VBG pCO2 VBG pO2 VBG HCO3 VBG O2 Saturation VBG Base Excess Sodium Potassium Chloride Carbon Dioxide Anion Gap BUN Creatinine Estim Creat Clear Calc Estimated GFR POC Glucose 121 H 168 H Random Glucose Calcium Magnesium Total Bilirubin Direct Bilirubin AST ALT Alkaline Phosphatase Troponin I High Sens C-Reactive Protein B-Natriuretic Peptide Total Protein Albumin Lipase Beta-Hydroxybutyrate Urine Color Urine Appearance Urine pH Ur Specific [place] Urine Protein Urine Glucose (UA) Urine Ketones Urine Blood Urine Nitrite Ur Leukocyte Esterase Urine RBC Urine WBC Ur Squamous Epith Cells Urine Bacteria Hyaline Casts Urine Opiates Screen Ur Buprenorphine Scrn Ur Oxycodone Screen Urine Methadone Screen Urine Fentanyl Screen Ur Barbiturates Screen Ur Phencyclidine Scrn Ur Amphetamines Screen U Benzodiazepines Scrn Urine Cocaine Screen U Marijuana (THC) Screen Ethyl Alcohol Influenza Type A (PCR) Influenza Type B (PCR) RSV RNA Qual (PCR) SARS-CoV-2 RNA (RT-PCR) Imaging Chest x-ray: Radiologist's impression: ITS Impressions Chest X-Ray 03/13/24 11:39 IMPRESSION: Normal chest. Electronically signed by: Amarjit Kim MD 03/13/2024 12:18 PM [facility] Discharge Plan Discharge Anticipated Discharge Date/Time: 03/14/24 11:32 Patient Disposition: Home, Self-Care Discharge Diagnosis: cannabis hyperemesis syndrome Referrals: Douglas,Tracy, [employer]INE [Primary Care Provider] - 1 Week Discharge Medications: Continued carvedilol 25 mg tablet 25 mg PO BID pantoprazole 20 mg tablet,delayed release (DR/EC) 40 mg PO DAILY insulin glargine [Lantus Solostar U-100 Insulin] 100 unit/mL (3 mL) insulin pen 10 unit subcut BEDTIME Jardiance 10 mg tablet 10 mg PO DAILY amlodipine 10 mg tablet 10 mg PO DAILY escitalopram oxalate 10 mg tablet 10 mg PO DAILY losartan 50 mg tablet 50 mg PO DAILY Qty: 30 5RF Discharge Orders: Discharge Order (Routine); Ordered 03/14/24 Ordered By: Yolanda Gonzales Diet: Advance to usual diet Activity on Discharge: As tolerated Stand Alone Forms: Patient Portal Discharge page Print Language: [place] Care Plan Goals: Patient came with intractable nausea and vomiting : Patient was admitted with KARUNA, intractable nausea and vomiting in the setting of cannabis hyperemesis syndrome: Patient was given IV fluid Protonix Haldol, aldosterone, supportive care patient seems to be improved significantly, tolerating diet. With hydration KARUNA improved, patient is asymptomatic. Patient was strongly advised to think about abstaining from marijuana use. Also strongly advised and encouraged for p.o. hydration and p.o. intake. plan: strongly advised to think about abstaining from marijuana use. Also strongly advised and encouraged for p.o. hydration and p.o. intake. Health Concerns: As above. Plan of Treatment: strongly advised to think about abstaining from marijuana use. Also strongly advised and encouraged for p.o. hydration and p.o. intake.Documented Assessment: strongly advised to think about abstaining from marijuana use. Also strongly advised and encouraged for p.o. hydration and p.o. intake.
[2024-03-14] MEDS: Insulin Lispro 100 UNIT/ML 3 ML VIAL SUBCUT (11:46)
--- NOTE | 2024-03-14 11:51 | MHC.CM.PN ---
pt dcd home self care
[2024-03-14 11:56] VITALS: BP 169/83; PULSE 82
[2024-03-14 11:57] VITALS: BP 162/79
== END 2024-03-14 14:09 | disposition home or self-care (01) ==
LOC: HO.ED 17:16 → HO.EDOVER 17:37 → HO.S3 19:33
PROVIDERS: Admitting Provider Student in an Organized Health Care Education/Training Program; Emergency Provider Emergency Medicine; PCP Registered Nurse; Visit Provider Internal Medicine
DX: N17.9 Acute kidney failure, unspecified (principal); F12.288 Cannabis dependence with other cannabis-induced disorder; R11.2 Nausea with vomiting, unspecified; E86.0 Dehydration; E11.22 Type 2 diabetes mellitus with diabetic chronic kidney disease; I12.9 Hypertensive chronic kidney disease with stage 1 through stage 4 chronic kidney disease, or unspecified chronic kidney disease; N18.2 Chronic kidney disease, stage 2 (mild); R10.9 Unspecified abdominal pain; I42.9 Cardiomyopathy, unspecified; Z79.4 Long term (current) use of insulin; Z79.899 Other long term (current) drug therapy; Z03.818 Encounter for observation for suspected exposure to other biological agents ruled out
CPT/HCPCS: 0241U; 36415; 71045; 80048; 80076; 80307; 81001; 82010; 82803; 82947; 83690; 83735; 83880; 84484; 85025; 85027; 85610; 86140; 93005; 96361; 96372; 96374; 96375; 96376; 99221; 99285; J1200; J1630; J1650; J1920; J2060; J2470; J7120

== ENCOUNTER → 2024-03-13 11:39 | Outpatient (BNV) | payer MEDICAID, SELFPAY | PROVIDERS: Admitting Provider Student in an Organized Health Care Education/Training Program; Emergency Provider Emergency Medicine; PCP Registered Nurse; Visit Provider Internal Medicine | DX: R00.0 Tachycardia, unspecified (principal) | CPT/HCPCS: 93010 ==

== ENCOUNTER → 2024-03-13 11:39 | Outpatient (BNV) | payer MEDICAID, SELFPAY | PROVIDERS: Emergency Provider Emergency Medicine; PCP Registered Nurse; Visit Provider Radiology Diagnostic Radiology | DX: R10.9 Unspecified abdominal pain (principal) | CPT/HCPCS: 71045 ==

== ENCOUNTER → 2024-03-13 17:16 | Outpatient (BNV) | payer MEDICAID, SELFPAY | PROVIDERS: Admitting Provider Student in an Organized Health Care Education/Training Program; Emergency Provider Emergency Medicine; PCP Registered Nurse; Visit Provider Student in an Organized Health Care Education/Training Program | DX: N17.9 Acute kidney failure, unspecified (principal); F12.288 Cannabis dependence with other cannabis-induced disorder | CPT/HCPCS: 99222; 99239 ==

== ENCOUNTER 2024-03-16 15:20 | Outpatient (AMB) | payer MEDICAID, SELFPAY ==
--- NOTE | 2024-03-16 15:22 | A.OFFVIS_ITS ---
Vital Signs 03/16/24 15:24 Height 5 ft 7 in Weight 206 lb 12.697 oz BMI 32.4 BP 172/99 H Blood Pressure Location Rt brachial Position Sitting Pulse 79 Intake Visit Reasons: Gastritis Intake Note: New patient in office today for gastritis. CC: Patient c/o burps with foul smell after eating, heartburn, acid reflux, nausea, and vomiting for months . He also reports diarrhea when he has the flare ups . Patient states that he has tried Pepto-Bismol but continues having symptoms. He reports black stools 2-3 weeks ago. 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 Over the past couple months patient has been seen in the ER and admitted couple times for severe dehydration. Patient has been diabetic for some time and has been dealing with epigastric pain postprandially. Patient currently is taking pantoprazole and his symptoms are suppressed. However patient does report that sometimes he will get epigastric pain where he will have severe acid reflux. Foul-smelling odor and belching when this happens. Patient reports that he will have nausea and will proceed to have severe projectile vomiting. Patient also reports at the same time having diarrhea. Patient admitted couple times for dehydration. Acute kidney injury. Currently is seeing medical office representative. Will have appointment with the medical office representative tomorrow to discuss ultrasound of his kidneys. Patient also reports that he has been seen by corporate vp advertising & online for hypertension. Blood pressure high in the office today as well. Patient reports that he used to smoke marijuana and has not smoked for few weeks. Patient was seen in the ER on March 13 and urine tox was negative for marijuana use. Patient reports that he is trying to avoid dietary triggers along with taking pantoprazole. Patient reports that he will have breakthrough symptoms if he will have something spicy or something with tomato PFSH Medical History Cannabis hyperemesis syndrome concurrent with and due to cannabis dependence Cannabis use disorder Hypertension Anxiety Chest pain ADHD Generalized anxiety disorder Type 2 diabetes mellitus Hypertension Surgical History [place] teeth extracted History of appendectomy History of eye surgery (~06/2022) Family History Father HTN (hypertension) Mother Arthritis Sister Lupus (systemic lupus erythematosus) Social History Household Members: Family Housing: Apartment Do you presently have visiting nurse or other home services: No Alcohol intake: former Patient Tobacco Use Status: Never used Tobacco e-Cigarette/Vaping Use: Never Used Second Hand Smoke Exposure: No (N/A) Substance Use Type: Marijuana Advance Directives Date on File: 11/01/23 service: No Review of Systems Const Denies weight gain and Denies weight loss ENT Reports no additional complaints, Denies dysphagia and Denies odynophagia Card Reports no additional complaints Resp Reports no additional complaints GI Reports abdominal pain (Epigastric), Denies belching, Denies melena, Denies bloating, Denies change in bowel habits, Denies dysphagia, Denies excessive flatus, Reports dyspepsia, Reports heartburn, Denies diarrhea, Reports loose stools (Occasionally), Denies nausea, Denies odynophagia and Denies vomiting Reports no additional complaints Musc Reports no additional complaints Neuro Reports no additional complaints Psych Reports no additional complaints Endo Reports no additional complaints Physical Exam Vital Signs: Last Vital Signs Pulse 79 03/16/24 15:24 BP 172/99 H 03/16/24 15:24 BMI result Body Mass Index 32.4 Const General: healthy appearing and no acute distress Nutritional Appearance: obese Orientation/consciousness: patient oriented x3 Resp Effort & Inspection: normal respiratory effort, able to speak in complete sentences, no tracheal deviation and symmetric chest movement Auscultation: clear to auscultation bilaterally Cardio Rate: regular rate GI Inspection: Yes normal to inspection and No distended Palpation (GI): Soft to palpation, not firm, nontender and No hepatosplenomegaly present Auscultation: normal bowel sounds General: Yes no CVA tenderness Back/Spine/Pelvis Back: no CVA tenderness Skin General skin exam: elasticity normal, turgor normal and dry skin Neuro General: patient oriented x3 Psych Appearance: grossly normal Mental Status: mental status grossly normal Assessment & Plan Assessment & Plan (1) GERD (gastroesophageal reflux disease): Code(s): K21.9 - Gastro-esophageal reflux disease without esophagitis Qualifiers: Esophagitis presence: esophagitis presence not specified Qualified Code(s): K21.9 - Gastro-esophageal reflux disease without esophagitis (2) Postprandial epigastric pain: Code(s): R10.13 - Epigastric pain (3) Nausea & vomiting: Code(s): R11.2 - Nausea with vomiting, unspecified Qualifiers: Vomiting type: projectile vomiting Qualified Code(s): R11.12 - Projectile vomiting Plan Continue pantoprazole. Avoid dietary triggers and late night snacking. Staying upright for minimum 3 hours after meals discussed with patient. Patient will take famotidine at bedtime. Will check for H pylori, lipase, A1c, thyroid study, transglutaminase, vitamin-D, B12 and folate. Patient will be sent for upper GI series. He is not having to follow with endocrinology. Message sent to 1 of the providers and referral was made. Patient will follow-up in the office in 2 months. He will be sent for upper endoscopy, however he is seen cardiology now and is going for stress test as well as echocardiogram. Long discussion with patient about avoiding dietary triggers which will probably be the most important. Continue avoiding marijuana. Eat smaller meals and more often. Patient is agreeable to current plan of care and verbalizes understandin g of instructions. He was given the opportunity to ask questions and all questions answered. Thank you for allowing me to participate in his care Orders: Orders H pylori Ag Stool Today K21.9 - Gastro-esophageal reflux disease without esophagitis Lipase Today R10.9 - Unspecified abdominal pain Hemoglobin A1c Today Z83.3 - Family history of diabetes mellitus [place] upper GI w Ba Swallow Today K21.9 - Gastro-esophageal reflux disease without esophagitis TSH reflex Free T4 Today K59.00 - Constipation, unspecified Transglutaminase IgA Today R10.9 - Unspecified abdominal pain Vitamin B12 and Folate Today R19.7 - Diarrhea, unspecified Vitamin D 25-OH (D2 and D3) Today E55.9 - Vitamin D deficiency, unspecified Referrals Endocrinology Referral E11.9 - Type 2 diabetes mellitus without complications Medications: New famotidine (Pepcid) 20 mg PO BEDTIME 30 tabs 3RF K21.9 - Gastro-esophageal reflux disease without esophagitis Coding Level of Care Code New Pt Level 4 (95510) Diagnoses Gastroesophageal reflux disease, unspecified whether esophagitis present K21.9 Esophagitis presence: esophagitis presence not specified Postprandial epigastric pain R10.13 Projectile vomiting with nausea R11.12 Vomiting type: projectile vomiting Time Spent (min) 45 Comment 30 minutes spent with patient and additional 15 minutes spent reviewing his records
[2024-03-16 15:24] VITALS: BP 172/99; PULSE 79; BMI 32.4
== END 2024-03-16 15:51 | disposition home or self-care (01) ==
PROVIDERS: PCP Registered Nurse; Visit Provider Nurse Practitioner Family
DX: K21.9 Gastro-esophageal reflux disease without esophagitis (principal); R10.13 Epigastric pain; R11.12 Projectile vomiting
CPT/HCPCS: 99204

== ENCOUNTER 2024-03-16 15:20 | Outpatient (REF) | payer MEDICAID, SELFPAY ==
[2024-03-16 17:51] LABS: Estimated Average Glucose 148 mg/dL; Hemoglobin A1C 141.8988 umol/L; Hemoglobin A1c % 6.8 % (<6.0); Total Hemoglobin (HGBA1C) 2821.5308 umol/L
[2024-03-16 18:24] LABS: Anion Gap 13 (12-20); Blood Urea Nitrogen 23 mg/dL (9-16); Calcium 9.3 mg/dL (8.4-10.2); Carbon Dioxide 26 mmol/L (22-29); Chloride 105 mmol/L (96-108); Cholesterol 246 mg/dL (<200); Estimated Glomerular Filt Rate 47; HDL Cholesterol 44 mg/dL (>40); LDL Cholesterol Calculated 145 mg/dL (<100); Lipase 67 U/L (8-78); Potassium 4.5 mmol/L (3.3-5.1); Sodium 139 mmol/L (135-145); Triglycerides 287 mg/dL (<150)
[2024-03-16 18:36] LABS: TSH reflex Free T4 0.66 uIU/mL (0.32-4.0)
[2024-03-16 18:41] LABS: Glucose Random 174 mg/dL (60-115)
[2024-03-16 19:17] LABS: Anion Gap 13 (12-20); Blood Urea Nitrogen 24 mg/dL (9-16); Calcium 9.5 mg/dL (8.4-10.2); Carbon Dioxide 26 mmol/L (22-29); Chloride 105 mmol/L (96-108); Cholesterol 250 mg/dL (<200); Estimated Glomerular Filt Rate 47; Glucose Random 174 mg/dL (60-115); HDL Cholesterol 42 mg/dL (>40); LDL Cholesterol Calculated 150 mg/dL (<100); Potassium 4.4 mmol/L (3.3-5.1); Sodium 140 mmol/L (135-145); Triglycerides 290 mg/dL (<150)
[2024-03-16 19:30] LABS: Folate 12.6 ng/mL (> or = 4.0); Vitamin B12 450 pg/mL (200-900)
[2024-03-17 21:58] LABS: Transglutaminase IgA <1.0 U/mL
[2024-03-19 18:22] LABS: Vitamin D 25-OH, D2 <4 ng/mL; Vitamin D 25-OH, D3 17 ng/mL; Vitamin D 25-OH, Total 17 ng/mL (30-100)
== END 2024-03-16 15:21 | disposition home or self-care (01) ==
LOC: HO.LAB 15:20
PROVIDERS: Absent Provider Internal Medicine Cardiovascular Disease; PCP Registered Nurse; Visit Provider Nurse Practitioner Family
DX: R10.9 Unspecified abdominal pain (principal); Z83.3 Family history of diabetes mellitus; K59.00 Constipation, unspecified; E55.9 Vitamin D deficiency, unspecified; R19.7 Diarrhea, unspecified; E11.21 Type 2 diabetes mellitus with diabetic nephropathy; I25.10 Atherosclerotic heart disease of native coronary artery without angina pectoris; I10 Essential (primary) hypertension; K21.9 Gastro-esophageal reflux disease without esophagitis; R11.12 Projectile vomiting
CPT/HCPCS: 36415; 80048; 80061; 82306; 82607; 82746; 83036; 83690; 84443; 86364; 99212

== ENCOUNTER 2024-03-17 15:38 | Outpatient (AMB) | payer MEDICAID, SELFPAY ==
[2024-03-17 15:36] VITALS: BP 182/90; PULSE 82; O2SAT 98; BMI 32.7
--- NOTE | 2024-03-17 15:36 | HO.NEPHOV_ITS ---
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 Accompanied by: Self / Same As Patient Allergies No Known Allergies [No Known Allergies*] Allergy (Verified 03/17/24 15:38) Medication List - Last Reconciled 03/17/24 by Royce Perry MD amlodipine 10 mg PO DAILY carvedilol 25 mg PO BID empagliflozin (Jardiance) 10 mg PO DAILY escitalopram oxalate 10 mg PO DAILY famotidine (Pepcid) 20 mg PO BEDTIME insulin glargine (Lantus Solostar U-100 Insulin) 10 units subcut BEDTIME losartan 50 mg PO DAILY pantoprazole 40 mg PO QAM HPI Comments Details: 28 y/o male here for new patient visit referred by PCP for KARUNA medical history of primary HTN, DMII (diagnosed as a teenager, uncontrolled until last year or two per pt), obesity, anxiety. former daily cigar smoker, quit 1 year ago. Quit drinking alcohol 1 year ago (~1-2 beers daily prior to that). Daily marijuana smoker. 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 He is not sure about diabetic retinopathy but does see an eye doctor. Creatinine: 10/2022 0.85 08/14/23 1.40 10/29/23 1.60 10/30/23 1.37 10/31/[address] abd/pelvis- unremarkable renal findings. *of note, pt also had protein and blood in urine on UA from May 2022 pt was hospitalized on 10/31/[address] [facility] [place] with uncontrolled HTN and chest pain, ACS eval was negative. KARUNA, olmesartan was held. currently prescribed amlodipine 10mg daily and carvedilol 6.25mg BID high blood pressure had been improving per pt, was in 180s for some time- notes panic attacks can often worsen his blood pressures lost 100lbs over about 5 years, gained a lot of it back in last year or so. family history: sister passed from lupus 2 years ago. Other siblings are healthy he thinks. father has diabetes and high blood pressure. mother has prediabetes. pt's son kowasaki disease when he was born NSAIDs are rare but he does take them on occasion take for headaches. does note constant pressure on his chest, reports this has improved since hospital visit but mild version is persisting no dyspnea no abdominal pain no pain with urination swelling in his legs- compression socks are helpful - pt reports since starting amlodipine 03/17/2024. Tristen claims he is anxious. His blood pressure has always stayed elevated. He states that the only time it comes down is when he smokes marijuana. [facility], [facility] Medical History Cannabis hyperemesis syndrome concurrent with and due to cannabis dependence Cannabis use disorder Hypertension Anxiety Chest pain ADHD Generalized anxiety disorder Type 2 diabetes mellitus Hypertension Surgical History [place] teeth extracted History of appendectomy History of eye surgery (~06/2022) Family History Father HTN (hypertension) Mother Arthritis Sister Lupus (systemic lupus erythematosus) Social History Household Members: Family Housing: Apartment Do you presently have visiting nurse or other home services: No Alcohol intake: former Patient Tobacco Use Status: Never used Tobacco e-Cigarette/Vaping Use: Never Used Second Hand Smoke Exposure: No (N/A) Substance Use Type: Marijuana Advance Directives Date on File: 11/01/23 service: No Physical Exam Vital Signs: Last Vital Signs Pulse 82 03/17/24 15:36 BP 182/90 H 03/17/24 15:36 Pulse Ox 98 03/17/24 15:36 Oxygen Delivery Method Room Air 03/17/24 15:36 BMI result Body Mass Index 32.7 Comfortable Neck supple no JVD. Lungs entry equal no rales. Heart S1-S2 heard no gallop or rub. Abdomen soft nontender. Neuro alert awake oriented. No asterixis. Extremities no edema. Results Reviewed Results Reviewed: Right kidney: The right kidney measures 12.8 x 7.6 x 5.9 cm. Renal parenchymal echotexture and thickness are normal. There are no masses. There is no hydronephrosis or renal calculi. Left Kidney: The left kidney measures 11.3 x 6.2 x 6.5 cm. Renal parenchymal echotexture and thickness are normal. There are no masses. There is no hydronephrosis or renal calculi. Nephrology Results: Hgb 10.6 g/dl (14.0-18.0) L 03/14/24 WBC 9.0 X10*3/uL (4.8-10.8) 03/14/24 Plt Count 236 X10*3/uL (160-400) 03/14/24 Sodium 140 mmol/L (135-145) 03/16/24 Potassium 4.4 mmol/L (3.3-5.1) 03/16/24 Chloride 105 mmol/L (96-108) 03/16/24 Carbon Dioxide 26 mmol/L (22-29) 03/16/24 BUN 24 mg/dL (9-16) H 03/16/24 Creatinine 1.72 mg/dL (0.5-1.4) H 03/16/24 Calcium 9.5 mg/dL (8.4-10.2) 03/16/24 Urine Protein 300 (3+) mg/dL (Neg-Trace) H 03/13/24 Renal US 03/11/24 Assessment & Plan Assessment & Plan (1) Uncontrolled hypertension: Code(s): I10 - Essential (primary) hypertension Category: Medical (2) Chronic kidney disease, stage 2 (mild): Code(s): N18.2 - Chronic kidney disease, stage 2 (mild) Category: Medical (3) KARUNA (acute kidney injury): Code(s): N17.9 - Acute kidney failure, unspecified Category: Medical (4) Chronic kidney disease: Code(s): N18.9 - Chronic kidney disease, unspecified Category: Medical Plan Pt with CKD stage 3a in setting of longstanding DMII, with recent increase in creatinine may have been related to olmesartan, though also question glomerulonephritis given hx of blood and protein in urine Renal ultrasonogram was unremarkable no evidence of obstruction. check SPEP, C3/C4 to rule out other non-diabetic etiologies of CKD - Reordered Anxiety is clearly playing a role in the resistant hypertension. avoid NSAIDs work on healthy diet and weight loss as well as regular exercise Low salt diet Obtain 24 hr ABPM Orders: Orders Phospholipase A2 Receptor Pnl 3 Weeks I10 - Essential (primary) hypertension, N18.9 - Chronic kidney disease, unspecified Protein Electrophoresis, Serum 3 Weeks I10 - Essential (primary) hypertension, N18.9 - Chronic kidney disease, unspecified AMB 24 HR B/P Monitor PLACEMENT Today I10 - Essential (primary) hypertension Complement C3 3 Weeks I10 - Essential (primary) hypertension, N18.9 - Chronic kidney disease, unspecified Complement C4 3 Weeks I10 - Essential (primary) hypertension, N18.9 - Chronic kidney disease, unspecified Basic Metabolic Panel 3 Weeks I10 - Essential (primary) hypertension, N18.9 - Chronic kidney disease, unspecified Coding Level of Care Code Est Pt Level 4 (68975) Diagnoses Uncontrolled hypertension I10 Chronic kidney disease, stage 2 (mild) N18.2 KARUNA (acute kidney injury) N17.9 Chronic kidney disease N18.9
== END 2024-03-17 15:55 | disposition home or self-care (01) ==
PROVIDERS: PCP Registered Nurse; Visit Provider Internal Medicine Hypertension Specialist
DX: I12.9 Hypertensive chronic kidney disease with stage 1 through stage 4 chronic kidney disease, or unspecified chronic kidney disease (principal); N18.2 Chronic kidney disease, stage 2 (mild); N17.9 Acute kidney failure, unspecified; N18.9 Chronic kidney disease, unspecified
CPT/HCPCS: 99214

== ENCOUNTER → 2024-03-17 15:38 | Outpatient (BNVA) | payer MEDICAID, SELFPAY | PROVIDERS: PCP Registered Nurse; Visit Provider Internal Medicine Hypertension Specialist | DX: I12.9 Hypertensive chronic kidney disease with stage 1 through stage 4 chronic kidney disease, or unspecified chronic kidney disease (principal); N18.2 Chronic kidney disease, stage 2 (mild); N17.9 Acute kidney failure, unspecified | CPT/HCPCS: 99212 ==

== ENCOUNTER → 2024-03-30 14:32 | Outpatient (BNVA) | payer MEDICAID, SELFPAY | PROVIDERS: PCP Registered Nurse; Visit Provider Internal Medicine Hypertension Specialist ==

== ENCOUNTER 2024-03-31 14:39 | Outpatient (AMB) | payer MEDICAID, SELFPAY ==
--- NOTE | 2024-03-31 14:45 | AM.OFFVISNUR ---
Intake Visit Reasons: BPM Interpretation/ Conf Allergies No Known Allergies [No Known Allergies*] Allergy (Verified 03/31/24 14:44) Coding Level of Care Code ABPM Recording/Return ([id number])
--- NOTE | 2024-03-31 14:47 | HO.NEPHOV_ITS ---
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 Accompanied by: Self / Same As Patient Allergies No Known Allergies [No Known Allergies*] Allergy (Verified 03/31/24 14:53) Medication List - Last Reconciled 03/31/24 by Royce Perry MD amlodipine 10 mg PO DAILY atorvastatin 40 mg PO BEDTIME carvedilol 25 mg PO BID empagliflozin (Jardiance) 10 mg PO DAILY escitalopram oxalate 10 mg PO DAILY famotidine (Pepcid) 20 mg PO BEDTIME insulin glargine (Lantus Solostar U-100 Insulin) 10 units subcut BEDTIME losartan 50 mg PO DAILY pantoprazole 40 mg PO QAM HPI Comments Details: 28 y/o male here for new patient visit referred by PCP for KARUNA medical history of primary HTN, DMII (diagnosed as a teenager, uncontrolled until last year or two per pt), obesity, anxiety. former daily cigar smoker, quit 1 year ago. Quit drinking alcohol 1 year ago (~1-2 beers daily prior to that). Daily marijuana smoker. 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 He is not sure about diabetic retinopathy but does see an eye doctor. Creatinine: 10/2022 0.85 08/14/23 1.40 10/29/23 1.60 10/30/23 1.37 10/31/[address] abd/pelvis- unremarkable renal findings. *of note, pt also had protein and blood in urine on UA from May 2022 pt was [place] on 10[place]31/23 [place] [facility] [place]N and chest pain, ACS eval was negative. KARUAN, olmesartan was held. currently prescribed amlodipine 10mg daily and carvedilol 6.25mg BID high blood pressure had been improving per pt, was in 180s for some time- notes panic attacks can often worsen his blood pressures lost 100lbs over about 5 years, gained a lot of it back in last year or so. family history: sister passed from lupus 2 years ago. Other siblings are healthy he thinks. father has diabetes and high blood pressure. mother has prediabetes. pt's son kowasaki disease when he was born NSAIDs are rare but he does take them on occasion take for headaches. does note constant pressure on his chest, reports this has improved since hospital visit but mild version is persisting no dyspnea no abdominal pain no pain with urination swelling in his legs- compression socks are helpful - pt reports since starting amlodipine 03/17/2024. Tristen claims he is anxious. His blood pressure has always stayed elevated. He states that the only time it comes down is when he smokes marijuana. 03/31/2024. He forgot to take his medications today. Underwent 24 hour ambulatory blood pressure [facility] Medical History Cannabis hyperemesis syndrome concurrent with and due to cannabis dependence Cannabis use disorder Hypertension Anxiety Chest pain ADHD Generalized anxiety disorder Type 2 diabetes mellitus Hypertension Surgical History [place] teeth extracted History of appendectomy History of eye surgery (~06/2022) Family History Father HTN (hypertension) Mother Arthritis Sister Lupus (systemic lupus erythematosus) Social History Household Members: Family Housing: Apartment Do you presently have visiting nurse or other home services: No Alcohol intake: former Patient Tobacco Use Status: Never used Tobacco e-Cigarette/Vaping Use: Never Used Second Hand Smoke Exposure: No (N/A) Substance Use Type: Marijuana Advance Directives Date on File: 11/01/23 service: No Physical Exam Vital Signs: Last Vital Signs BP 160/84 H 03/31/24 14:52 Comfortable Neck supple no JVD. Lungs entry equal no rales. Heart S1-S2 heard no gallop or rub. Abdomen soft nontender. Neuro alert awake oriented. No asterixis. Extremities no edema. Results Reviewed Nephrology Results: Hgb 10.6 g/dl (14.0-18.0) L 03/14/24 WBC 9.0 X10*3/uL (4.8-10.8) 03/14/24 Plt Count 236 X10*3/uL (160-400) 03/14/24 Sodium 140 mmol/L (135-145) 03/16/24 Potassium 4.4 mmol/L (3.3-5.1) 03/16/24 Chloride 105 mmol/L (96-108) 03/16/24 Carbon Dioxide 26 mmol/L (22-29) 03/16/24 BUN 24 mg/dL (9-16) H 03/16/24 Creatinine 1.72 mg/dL (0.5-1.4) H 03/16/24 Calcium 9.5 mg/dL (8.4-10.2) 03/16/24 Urine Protein 300 (3+) mg/dL (Neg-Trace) H 03/13/24 Renal US 03/11/24 Assessment & Plan Assessment & Plan (1) Uncontrolled hypertension: Code(s): I10 - Essential (primary) hypertension Category: Medical (2) Chronic kidney disease, stage 2 (mild): Code(s): N18.2 - Chronic kidney disease, stage 2 (mild) Category: Medical (3) KARUNA (acute kidney injury): Code(s): N17.9 - Acute kidney failure, unspecified Category: Medical (4) Chronic kidney disease: Code(s): N18.9 - Chronic kidney disease, unspecified Category: Medical Plan Pt with CKD stage 3a in setting of longstanding DMII, with recent increase in creatinine may have been related to olmesartan, though also question glomerulonephritis given hx of blood and protein in urine Renal ultrasonogram was unremarkable no evidence of obstruction. Once again he did not undergo the serological workup. I reordered again today.- check SPEP, C3/C4 to rule out other non-diabetic etiologies of CKD Anxiety is clearly playing a role in the resistant hypertension. avoid NSAIDs work on healthy diet and weight loss as well as regular exercise Low salt diet . 24 hour ambulatory blood pressure monitoring revealed ABP M stage I hypertension without nocturnal dipping. No white coat effect. There were several readings that were in the normal range. His blood pressure is suboptimal today because he did not did not take amlodipine and losartan Discussed importance of compliance. Orders: Orders Basic Metabolic Panel 6 Weeks N18.9 - Chronic kidney disease, unspecified Neutrophil Cytoplasma Ab 6 Weeks N18.9 - Chronic kidney disease, unspecified Anti DNA DS Antibody 6 Weeks N18.9 - Chronic kidney disease, unspecified Anti Glomerular Basement Memb 6 Weeks N18.9 - Chronic kidney disease, unspecified Complement C4 6 Weeks N18.9 - Chronic kidney disease, unspecified Complement C3 6 Weeks N18.9 - Chronic kidney disease, unspecified Protein Electrophoresis, Serum 6 Weeks N18.9 - Chronic kidney disease, unspecified Coding Level of Care Code Est Pt Level 4 (14434) Diagnoses Uncontrolled hypertension I10 Chronic kidney disease, stage 2 (mild) N18.2 KARUNA (acute kidney injury) N17.9 Chronic kidney disease N18.9
[2024-03-31 14:52] VITALS: BP 160/84
--- OUTSIDE RECORDS SUMMARY | 2024-03-31 15:33 | XMS_ITS | Encounter Summary ---
Author Organization [employer] Address [address] [place] [address] Care Team Providers Care Customer Operations Intern Name Role Phone Leanne Alcazar FLORAL ASSOCIATE Primary Care Provider [phone] Encounter Details Date Type Department Care Team ([facility] st Contact Info) Description 03/13/2024 Orders Only GENERIC EXTERNAL DATA DEPARTMENT Provider, Generic External Data Social History Tobacco Use Types Packs/Day Years Used Date Smoking Tobacco: Never Passive Smoke Exposure: Never Smokeless Tobacco: Never Alcohol Use Standard Drinks/Week Comments Not Currently 0 (1 standard drink = 0.6 oz pur e alcohol) occassional Depression Answer Date Recorded Patient Health Questionnaire-9 Score 0 01/27/2024 Patient Health Questionnaire-9 Score 0 01/27/2024 Last PHQ-9: Questionnaire Data Not on file 1 03/28/2023 Housing Stability Answer Date Recorded What is your housing situation today? I have felton montano 01/28/[address] you li ve. Do you have problems with any of the following? None of the above 01/28/2023 Food Insecurity Answer Date Recorded Within the past 12 months, y ou worried that your food would run out before you got money to buy more: Never True 01/28/2023 Within the past 12 months,th e food you bought just didn't last and you didn't have enough money to get more: Never True Transportation Answer Date Recorded In the past 12 months, has l ack of transportation kept you from medical appts, meetings, work or from getting things needed for daily living? No 01/28/2023 Utilities Answer Date Recorded In the past 12 months, has t he electric, gas, oil or water company threatened to shut off services in your home? No 01/28/2023 Depression Answer Date Recorded Patient Health Questionnaire-2 Score 0 01/27/2024 Internet Access Answer Date Recorded Internet Access Q1 Yes 12/02/2023 Internet Access Q2 Not on file 12/02/2023 Sex and Gender Information Value Date Recorded Sex Assigned at Male 01/01/2022 10:40 AM EDT Legal Sex Male 10:40 AM EDT Gender Identity Male 01/01/2022 10:40 AM EDT Sexual Orientation Choose not to disclose 2021 10:40 AM EDT documented as of this encounter Plan of Treatment Upcoming Encounters Date Type Department Care Team (Late st Contact Info) Description 04/06/2024 10:30 AM EST Office Visit [facility] [address] [place] [address] [facility], [facility] [address] [place] [address] documented as of this encounter Procedures Procedure Name Priority Date/Time Associated Diagnosis Comments BASIC METABOLIC PANEL Routine 03/13/2024 4:26 PM EST URINALYSIS, COMPLETE, WITH REFLEX TO CULTURE Routine 03/13/2024 1:05 PM EST DRUG MONITOR, PANEL 1, SCREEN, URINE Routine 03/13/2024 1:05 PM EST VENOUS BLOOD GAS Routine 03/13/2024 11:5 3 AM EST HIGH SENSITIVITY TROPONIN I Routine 03/13/2024 11:45 AM EST ETHANOL Routine 03/13/2024 11:45 AM EST SARS COV2/INFLUENZA A/B AND RSV RNA QL NAAT Routine 03/13/2024 11:45 AM EST BETA-HYDROXYBUTYRATE Routine 03/13/2024 11:45 AM EST CBC WITH AUTO DIFFERENTIAL Routine 03/13/2024 11:45 AM EST PROTHROMBIN TIME-INR Routine 03/13/2024 11:45 AM EST C-REACTIVE PROTEIN Routine 03/13/2024 11 :45 AM EST B TYPE NATRIURETIC PEPTIDE (BNP) Routine 03/13/2024 11:45 AM EST MAGNESIUM Routine 03/13/2024 11:45 AM EST LIPASE Routine 03/13/2024 11:45 AM EST HEPATIC FUNCTION PANEL Routine 03/13/2024 11:45 AM EST BASIC METABOLIC PANEL Routine 03/13/2024 11:45 AM EST XR CHEST 1 VIEW Routine 03/13/2024 11:39 AM EST documented in this encounter Results * (ABNORMAL) Basic Metabolic Panel (03/13/2024 4:26 PM EST) Sodium 140 135 - 145 mmol/L [facility] Potassium 4.7 3.3 - 5.1 mmol/L [facility] Chloride 107 96 - 108 mmol/L [facility] Carbon Dioxide 27 22 - 29 mmol/L [facility] Anion Gap 11(L) 12 - 20 [facility] Urea Nitrogen (BUN) 25(H) 9 - 16 mg/dL [facility] Creatinine, Serum 1.55(H) 0.5 - 1.4 mg/dL [facility] Creatinine Clr Calc Pharmacy 81.7 [facility] Comment:eGFR (calculated fro m the MDRD study equation) and eCrCl(calculated from the Cockcroft-Gault equation) are based ondifferent parameters and may not yield comparable results.If eCrCl result is absurd, please check patient'sheight/weight. Estimated Glomerular Filt Rate 53 [facility] Comment:Chronic Kidney Disea se: Estimated GFR < 60 mL/min/1.29g7Zxzybw Kidney Disease: Estimated GFR < 15 mL/min/1.73m2 Glucose 156(H) 60 - 115 mg/dL [facility] Calcium 8.6 8.4 - 10.2 mg/dL [facility] 03/13/2024 4:26 PM EST 03/13/2024 4:29 PM EST us Generic External Data Provider LAB BLOOD ORDERAB LES Final Result [facility] [address] [place] [address] [phone] * (ABNORMAL) Drug Monitoring, Panel 1, Screen, Urine (03/13/2024 1:05 PM EST) Opiate Screen Urine Not Detected Not Detect [facility] Comment:Opiate cut-off is 30 0 ng/mL.Positive results are unconfirmed and should not be used fornon-medical purposes. Barbiturates, Urine Not Detected Not Detect [facility] Comment:Barbiturate cut-off is 200 ng/mL.Positive results are unconfirmed and should not be used fornon-medical purposes. Phencyclidine Screen Urine Not Detected Not Detect [facility] Comment:Phencyclidine cut-of f is 25 ng/mL.Positive results are unconfirmed and should not be used fornon-medical purposes. Amphetamine Screen Urine Not Detected Not Detect [facility] Comment:Amphetamine cut-off is 1000 ng/mL.Positive results are unconfirmed and should not be used fornon-medical purposes. Benzodiazepines Screen Urine Not Detected Not Detect [facility] Comment:Benzodiazepine cut-o ff is 200 ng/mL.Positive results are unconfirmed and should not be used fornon-medical purposes. Cocaine Screen Urine Not Detected Not Detect [facility] Comment:Cocaine cut-off is 3 00 ng/mL.Positive results are unconfirmed and should not be used fornon-medical purposes. Cannabinoid Screen Urine POSITIVE(A) Not Detect [facility] Comment:Cannabinoid cut-off is 50 ng/mL.Positive results are unconfirmed and should not be used fornon-medical purposes. Methadone Screen, Urine Not Detected Not Detect ng/mL [facility] Comment:Methadone cut-off is 300 ng/mL.Positive results are unconfirmed and should not be used fornon-medical purposes. FENTANYL URINE Not Detected Not Detect [facility] Comment:Fentanyl cut-off is 1 ng/mL.Positive results are unconfirmed and should not be used fornon-medical purposes. Oxycodone Urine Screen Not Detected Not Detect ng/mL [facility] Comment:Oxycodone cut-off is 100 ng/mL.Positive results are unconfirmed and should not be used fornon-medical purposes. Buprenorphine Screen Not Detected Not Detect ng/mL [facility] Comment:Buprenorphine cut-of f is 5 ng/mL.Positive results are unconfirmed and should not be used fornon-medical purposes. 03/13/2024 1:05 PM EST 03/13/2024 1:08 PM EST us Generic External Data Provider LAB URINE ORDERAB LES Final Result [facility] [address] [place] [phone] * (ABNORMAL) Urinalysis, Complete, with Reflex to Culture (03/13/2024 1:05 PM EST) Color Urine Yellow [facility] Appearance Urine Clear [facility] PH 7.5 5.0 - 9.0 [facility] Glucose Urine UA >=1000(A) Negative mg/dL [facility] Urine Blood Large (3+)(A) Negative [facility] Specific [place] - Urine 1.020 1.005 - 1.025 [facility] Urine Protein 300 (3+)(A) Neg-Trace mg/dL [facility] Urine Ketones Trace Negative mg/dL [facility] Nitrite Urine Negative Negative [facility] Leukocyte Esterase Urine Negative Negative [facility] RBC Urine >20(A) 0 - 2 /HPF [facility] Urine WBC 0-5 0 - 5 /HPF [facility] Urine Squamous Epithelial Cell 0-2 0 - 2 /HPF [facility] Urine Bacteria None Seen None Seen [facility] Hyaline Casts, Urine 0-2 0 - 2 /LPF [facility] 03/13/2024 1:05 PM EST 03/13/2024 1:08 PM EST Narrative [facility] - 03/13/2024 1:54 PM EST [id number], [employer] us Generic External Data Provider LAB URINE ORDERAB LES Final Result Performing Organization Address [facility] Co de Phone Number [facility] [address] [place] [address] [phone] * (ABNORMAL) VENOUS BLOOD GAS (03/13/2024 11:53 AM EST) VBG pH 7.52(H) 7.32 - 7.43 [facility] Comment:METER #: [id number] additional_comment: Cb snowma VBG PCO2 29 mmHg [facility] Comment:METER #: [id number] additional_comment: Cb snowma VBG PO2 61 mmHg [facility] Comment:METER #: [id number] additional_comment: Cb snowma VBG Base Excess 2.4 mmol/L [facility] Comment:METER #: [id number] additional_comment: Cb snowma VBG HCO3 24 22 - 26 mmol/L [facility] Comment:METER #: [id number] additional_comment: Cb snowma O2 Sat, Arnel 92.0 % [facility] Comment:METER #: [id number] additional_comment: Cb snowma 03/13/2024 11:5 3 AM EST 03/13/2024 12:02 PM EST us Generic External Data Provider LAB BLOOD ORDERAB LES Final Result Performing Organization Address [facility] Co de Phone Number [facility] [address] [place] [phone] * SARS-CoV-2 RNA, Influenza A/B, and RSV RNA, Ql NAAT (03/13/2024 11:45 AM EST) Influenza A PCR NEGATIVE Negative [facility] Influenza B PCR NEGATIVE Negative [facility] Resp Syncy Virus RNA Qual PCR NEGATIVE Negative [facility] SARS COV2 PCR NEGATIVE Negative [facility] Comment:All test results mus t be correlated with clinical findings.Negative results do not preclude SARS-CoV2, influenza Avirus, influenza B virus and/or RSV infectionand should not be used as the sole basis for treatment orother patient management decisions. Negative results must becombined with clinical observations, patient history, andepidemiological information.This test has not been evaluated for monitoring treatment ofinfection.This test has been authorized by the FDA under an EmergencyUse Authorization (EUA) for use by authorized laboratories.Testing performed on the for[MD] GeneXpert utilizingreal-time RT-PCR.All SARS CoV2 and positive influenza A/B results arereported to [facility]. 03/13/2024 11:4 5 AM EST 03/13/2024 11:51 AM EST Generic External Data Provider LAB MICROBIOLOGY - GENERAL ORDERABLES Final Result Performing Organization Address [facility]/ZIP Co de Phone Number [facility] [address] [place] [phone] * High Sensitivity Troponin I (03/13/2024 11:45 AM EST) TROPONIN I HIGH SENSITIVITY <2.7 <3.5 - 35.0 ng/L [facility] Comment:The Akers high sens itivity Troponin-I results should beused in conjunction with other diagnostic information suchas ECG, clinical observations and information, and patientsymptoms to aid in the diagnosis of [place]. 03/13/2024 11:4 5 AM EST 03/13/2024 11:51 AM EST Generic External Data Provider LAB BLOOD ORDERAB LES Final Result Performing Organization Address [facility]/ZIP Co de Phone Number [facility] [address] [place] [phone] * Ethanol (03/13/2024 11:45 AM EST) ETHANOL (MG/DL) IN SER/PLAS <10 mg/dL [facility] Comment:Serum/plasma ethanol results are to be used formedical/treatment purposes only. 03/13/2024 11:4 5 AM EST 03/13/2024 11:51 AM EST Generic External Data Provider LAB BLOOD ORDERAB LES Final Result Performing Organization Address [facility] Co de Phone Number [facility] [address] [place] [phone] * (ABNORMAL) Beta-Hydroxybutyrate (03/13/2024 11:45 AM EST) Beta-Hydroxybu tyrate 0.71(H) 0.02 - 0.27 mmol/L [facility] 03/13/2024 11:4 5 AM EST 03/13/2024 11:51 AM EST Generic External Data Provider LAB BLOOD ORDERAB LES Final Result Performing Organization Address [facility] Co de Phone Number [facility] [address] [place] [phone] * Lipase (03/13/2024 11:45 AM EST) Lipase 32 8 - 78 U/L [facility] 03/13/2024 11:4 5 AM EST 03/13/2024 11:51 AM EST Generic External Data Provider LAB BLOOD ORDERAB LES Final Result Performing Organization Address [facility] de Phone Number [facility] [address] [place] [phone] * C-reactive Protein (03/13/2024 11:45 AM EST) C Reactive Protein 0.28 < or = 0.50 mg/dL [facility] 03/13/2024 11:4 5 AM EST 03/13/2024 11:51 AM EST Generic External Data Provider LAB BLOOD ORDERAB LES Final Result Performing Organization Address [facility] de Phone Number [facility] [address] [place] [phone] * Magnesium (03/13/2024 11:45 AM EST) [facility] Magnesium 2.4 1.6 - 2.6 mg/dL [facility] 03/13/2024 11:4 5 AM EST 03/13/2024 11:51 AM EST Generic External Data Provider LAB BLOOD ORDERAB LES Final Result Performing Organization Address [facility] Phone Number [facility] [address] [place] [phone] * (ABNORMAL) Basic Metabolic Panel (03/13/2024 11:45 AM EST) [facility] Sodium 138 135 - 145 mmol/L [facility] Potassium 5.1 3.3 - 5.1 mmol/L [facility] Comment:Slight Hemolysis.Int erpret result with caution. Chloride 106 96 - 108 mmol/L [facility] Carbon Dioxide 22 22 - 29 mmol/L [facility] Anion Gap 15 12 - 20 [facility] Urea Nitrogen (BUN) 30(H) 9 - 16 mg/dL [facility] Creatinine, Serum 1.68(H) 0.5 - 1.4 mg/dL [facility] Creatinine Clr Calc Pharmacy 75.3 [facility] Comment:eGFR (calculated fro m the MDRD study equation) and eCrCl(calculated from the Cockcroft-Gault equation) are based ondifferent parameters and may not yield comparable results.If eCrCl result is absurd, please check patient'sheight/weight. Estimated Glomerular Filt Rate 48 [facility] Comment:Chronic Kidney Disea se: Estimated GFR < 60 mL/min/1.81d6Smzipu Kidney Disease: Estimated GFR < 15 mL/min/1.73m2 Glucose 259(H) 60 - 115 mg/dL [facility] Calcium 9.7 8.4 - 10.2 mg/dL [facility] 03/13/2024 11:4 5 AM EST 03/13/2024 11:51 AM EST us Generic External Data Provider LAB BLOOD ORDERAB LES Final Result Performing Organization Address [facility] Co de Phone Number [facility] [address] [place], [place] [phone] * Hepatic Function Panel (03/13/2024 11:45 AM EST) Bilirubin, Total 0.7 0.0 - 1.0 mg/dL [facility] Bilirubin, Direct 0.2 0.0 - 0.5 mg/dL [facility] Aspartate Amino Transferase 28 5 - 37 U/L [facility] Comment:Slight Hemolysis.Int erpret result with caution. Alanine Aminotransferase 16 0 - 40 U/L [facility] Total Protein 7.8 6.5 - 8.0 g/dL [facility] Albumin Level 4.1 3.5 - 5.0 g/dL [facility] Alkaline Phosphatase 92 39 - 117 U/L [facility] 03/13/2024 11:4 5 AM EST 03/13/2024 11:51 AM EST us Generic External Data Provider LAB BLOOD ORDERAB LES Final Result Performing Organization Address [facility] Co de Phone Number [facility] [address] [place] [address] [phone] * (ABNORMAL) B Type Natriuretic Peptide (BNP) (03/13/2024 11:45 AM EST) B Type Natriuretic Peptide 154(H) <100 pg/mL [facility] Comment:For those patients w ho are being treated with Natrecor(nesiritide, recombinant BNP), BNP testing should beperformed at least two hours post treatment in order toensure that only endogenous levels of BNP are detected. 03/13/2024 11:4 5 AM EST 03/13/2024 11:51 AM EST Generic External Data Provider LAB BLOOD ORDERAB LES Final Result [facility] [address] [place] [phone] * (ABNORMAL) Prothrombin Time-INR (03/13/2024 11:45 AM EST) Prothrombin Time 10.1(L) 10.9 - 12.4 SEC [facility] INTERNATIONAL NORM RATIO 0.9 0.9 - 1.1 [facility] Comment:INTERNATIONAL NORMAL IZED RATIO (INR) REFERENCE RANGES Reference RangeFor patients not on anticoagulant therapy: 0.9 - 1.1INR ranges for oral anticoagulanttherapy:For prevention and treatment of venous thrombosis and pulmonary embolism: 2.0 - 3.0For acute myocardial infarction with aspirin therapy: 2.0 - 3.0For acute myocardial infarction without aspirin therapy: 3.0 - 4.0For patients with mechanical prosthetic heart valves: 2.5 - 3.5 03/13/2024 11:4 5 AM EST 03/13/2024 11:51 AM EST us [employer] External Data Provider LAB BLOOD ORDERAB LES Final Result Performing Organization Address [facility]/ZIP Co de Phone Number [facility] [address] [place] [phone] * (ABNORMAL) CBC auto differential (03/13/2024 11:45 AM EST) White Blood Count 13.7(H) 4.8 - 10.8 X10*3/uL [facility] Red Blood Count 3.82(L) 4.60 - 5.80 X10*6/uL [facility] Hemoglobin 11.7(L) 14.0 - 18.0 g/dl [facility] Hematocrit 33.3(L) 42.0 - 52.0 % [facility] Mean Corpuscular Volume 87.2 80.0 - 98.0 fL [facility] Mean Corpuscular Hemoglobin 30.6 27.0 - 33.0 pg [facility] Mean Corpuscular HGB Conc 35.1 31.0 - 36.0 g/dl [facility] Red Cell Distribution Width 12.6 11.0 - 16.0 % [facility] Platelet Count 296 160 - 400 X10*3/uL [facility] Mean Platelet Volume 10.0 9.4 - 12.4 fL [facility] Neutrophils Percent Auto 84.7(H) 45 - 73 % [facility] Imm Gran Pct Auto 0.4 0.0 - 0.4 % [facility] Lymphocytes Percent Auto 10.1(L) 20 - 40 % [facility] Monocytes Percent Auto 3.9 2 - 11 % [facility] Eosinophils Percent Auto 0.5 0 - 4 % [facility] Basophils Percent Auto 0.4 0 - 2 % [facility] NRBC Pct Auto 0.0 0.0 - 0.2 /100WBC [facility] Neutrophils Absolute Auto 11.6(H) 2.0 - 8.3 x10*3/uL [facility] Imm Gran Abs Auto 0.06(H) 0.00 - 0.03 X10*3/uL [facility] Lymphocytes Absolute Auto 1.4 1.2 - 4.9 X10*3/uL [facility] Monocytes Absolute Auto 0.5 0.1 - 1.2 X10*3/uL [facility] Eosinophils Absolute Auto 0.1 0.0 - 0.4 X10*3/uL [facility] Basophils Absolute Auto 0.1 0.0 - 0.2 X10*3/uL [facility] NRBC Abs Auto 0.000 0.0 - 0.012 X10*3/uL [facility] 03/13/2024 11:4 5 AM EST 03/13/2024 11:51 AM EST us Generic External Data Provider LAB BLOOD ORDERAB LES Final Result [facility] [address] [place] [phone] * XR Chest 1 View (03/13/2024 11:39 AM EST) Anatomical Region Laterality Modality Chest Radiographic Robyn ging 03/13/2024 11:3 9 AM EST Narrative 03/13/2024 12:21 PM EST ? [facility] ?[address] ?[place] [address] ?XRay Report ? Signed ? Patient: Boateng,Trsiten ?MR#: [id number] ?? 8 ? : 1995 ?Acct:[id number] ? Age/Sex: 28 / M ?ADM Date: 03/13/24 ? Loc: HO.ED ? Attending Dr: ? Ordering Physician: Stefan Sequeira MD ?? Date of Service: 03/13/24 ?? Procedure(s): XR chest 1V ?? Accession Number(s): [id number] ? cc: Stefan Sequeira MD; Leanne Alcazar ? EXAMINATION: ?? XR CHEST ? CLINICAL INFORMATION: ?? sever abdominal pain ? COMPARISON: ?? 05/20/2022. ? TECHNIQUE: ?? Frontal view of the chest was obtained. ? FINDINGS: ?? Cardiac, hilar, and mediastinal contours are normal. ? The lungs are clear bilaterally. No pneumothorax or effusion. ? No soft tissue or osseous abnormalities. ? XR/XR chest 1V ?? IMPRESSION: ?? Normal chest. ? Electronically signed by: ??Amarjit Kim MD ??03/13/2024 12:18 PM EST RP ? Dictated By: ?Amarjit Kim MD ? Signed By: ?<Electronically signed by Amarjit Kim MD in OV> ?// 1218 ? DD/ 1139 ? TD/TT: 03/13/24 1207 ? Direct Care Professional: ? Procedure Note Donotuseinterpreter, Image - 03/13/[address] [address] XRay Report Signed Patient: Mala Boateng#: [id number] 8 : 1995Acct:[id number] Age/Sex: 28 / MADM Date: 03/13/24 Loc: HO.ED Attending Dr: Ordering Physician: Stefan Sequeira MD Date of Service: 03/13/24 Procedure(s): XR chest 1V Accession Number(s): [id number] cc: Stefan Sequeira MD; Leanne Alcazar EXAMINATION: XR CHEST CLINICAL INFORMATION: sever abdominal pain COMPARISON: 05/20/2022. TECHNIQUE: Frontal view of the chest was obtained. FINDINGS: Cardiac, hilar, and mediastinal contours are normal. The lungs are clear bilaterally. No pneumothorax or effusion. No soft tissue or osseous abnormalities. XR/XR chest 1V IMPRESSION: Normal chest. Electronically signed by: Amarjit Kim MD 03/13/2024 12:18 PM EST Dictated By: Amarjit Kim MD Signed By: <Electronically signed by Amarjit Kim MD in OV> 03/13/24 1218 DD/ 1139 TD/TT: 03/13/24 1207 Direct Care Professional: [facility] External Provider IMG XR PROCEDURES Final Result documented in this encounter Visit Diagnoses Not on filedocumented in this encounter Additional Health Concerns Assessment Noted Time PHQ-9 Depression Total Score: 0 01/27/20 24 3:31 PM EST documented as of this encounter Care Teams Customer Operations Intern Relationship Specialty Start Date End Date Leanne Alcazar FNP [address] [place] [address] PCP - General Family Medicine 12/13/21 documented as of this encounter
--- OUTSIDE RECORDS SUMMARY | 2024-03-31 15:33 | XMS_ITS | Encounter Summary ---
Author Organization [facility] Address [address] [place] [id number] Phone Care Team Providers Care Or Assistant Name Role Phone Tete Sutherland MD Primary Care Provider Encounter Details Date Type Department Care Team (Late st Contact Info) Description 07/21/2012 Documentation [facility] [place] Family Medicine [address] [place] [address] Family Medicine, Physician [address] [place], [place] [id number] Social History Tobacco Use Types Packs/Day Years Used Date Smoking Tobacco: Never Comments:Never smoker Sex and Gender Information Value Date Recorded Sex Assigned at Not on file Legal Sex Male 4:51 PM EDT Gender Identity Not on file Sexual Orientation Not on file documented as of this encounter Plan of Treatment Not on file documented as of this encounter Visit Diagnoses Not on filedocumented in this encounter Care Teams Or Assistant Relationship Specialty Start Date End Date Tete Sutherland MD [address] [place] [address] [place] [address] PCP - General 10/12/16 08/27/22 documented as of this encounter
--- OUTSIDE RECORDS SUMMARY | 2024-03-31 15:33 | XMS_ITS | Encounter Summary ---
Author Organization [facility] Address [address] [place] [phone] Phone Care Team Providers Care Digital Marketer Name Role Phone Tete Sutherland MD Primary Care Provider Encounter Details Date Type Department Care Team (Late st Contact Info) Description 01/29/2012 Documentation [facility] [place] [address] [place] [address] Family Medicine, Physician [address] [place], [place] [phone] Social History Tobacco Use Types Packs/Day Years Used Date Smoking Tobacco: Never Assessed Sex and Gender Information Value Date Recorded Sex Assigned at Not on file Legal Sex Male 4:51 PM EDT Gender Identity Not on file Sexual Orientation Not on file documented as of this encounter Plan of Treatment Not on file documented as of this encounter Visit Diagnoses Not on filedocumented in this encounter Care Teams Digital Marketer Relationship Specialty Start Date End Date Tete Sutherland MD [address] [place] [address] SULMA Narayan [id number] PCP - General 10/12/16 08/27/22 documented as of this encounter
--- OUTSIDE RECORDS SUMMARY | 2024-03-31 15:33 | XMS_ITS | Clinical Summary ---
Author Organization [employer] Address [address] [facility] [address] [place] [address] Care Team Providers Care Food And Beverage Cashier Name Role Phone Leanne Alcazar WAD COMPRESSOR OPERATOR ADJUSTER Primary Care Provider [phone] Allergies No known active allergies Medications * This document contains information received from the source organization and may not represent a complete record from that organization. FREESTYLE LITE test strip USE DIRECTED TO TEST BLOOD SUGAR ONE OR TWO TIMES DAILY 12/14/19 22 Active glucose blood (FREESTYLE LITE) test strip USE 1 Each by DIRECTED route every day 12/14/19 22 Active Blood Pressure Monitoring (Omron 3 Series BP Monitor) device USE TO CHECK BLOOD PRESSURE ONE OR TWO TIMES DAILY 12/19/19 22 Active Blood Glucose Monitoring Suppl (FreeStyle [place] Lite) w/Device kit TEST BLOOD SUGAR ONE OR TWO TIMES DAILY DIRECTED 12/14/19 22 Active insulin pen needle 30G x 5 mm miscIndications:T ype 2 diabetes mellitus with hyperglycemia, without long-term current use of insulin (CMS/[facility]) Use as instructed 100 each 12 01/29/20 23 Active TRUEplus Lancets 33G miscIndications:T ype 2 diabetes mellitus with hyperglycemia, without long-term current use of insulin (CMS/HCC) TEST BLOOD SUGAR 4 times daily 120 each 1 01/29/20 23 Active glucose blood test stripIndications: Type 2 diabetes mellitus with hyperglycemia, without long-term current use of insulin (CMS/HCC) Use as directed to check blood sugar four times daily 100 each 12 01/29/20 23 Active Continuous Glucose Electric Razor Mechanic (FreeStyle Ave 2 [place]) deviceIndications :Type 2 diabetes mellitus with hyperglycemia, without long-term current use of insulin (CMS/HCC) Scan sensor every 8 hours 1 each 06/20/19 24 Active empagliflozin (Jardiance) 10 MG Take 1 tablet (10 mg) by mouth Once per day. 30 tablet 11 08/16/19 24 2024 Active glucose 4 g chewable tabletIndications :Type 2 diabetes mellitus with hypoglycemia without coma, without long-term current use of insulin ([facility]) Chew 4 tablets (16 g) if needed for low blood sugar. 50 tablet 12 12/02/19 24 2024 Active Alcohol Swabs (Alcohol Prep) 70 % pads USE TO CLEAN SKIN BEFORE testing blood SUGAR OR INJECTION 100 each 5 12/06/19 24 Active Lantus SoloStar 100 UNIT/ML pen Inject 10 Units under the skin Once per day. 12/02/19 24 Active LORazepam (Ativan) 1 MG tablet Take 1 tablet by mouth 2 times daily. 12/21/19 24 Active amLODIPine (Norvasc) 10 MG tablet Take 1 tablet (10 mg) by mouth Once per day. 90 tablet 01/07/20 24 Active carvedilol (Coreg) 25 MG tablet Take 1 tablet (25 mg) by mouth 2 times daily. 180 tablet 01/07/20 24 Active Continuous Glucose Sensor (FreeStyle Ave 2 Sensor) miscIndications:T ype 2 diabetes mellitus with hyperglycemia, without long-term current use of insulin ([facility]) USE DIRECTED CHANGE EVERY 14 DAYS 2 each 3 02/19/20 24 Active escitalopram (Lexapro) 10 MG tabletIndications :Generalized anxiety disorder TAKE 1 TABLET BY MOUTH EVERY DAY 30 tablet 2 03/25/19 25 Active ondansetron (Zofran) 4 MG tabletIndications :Nausea TAKE 2 TABLETS BY MOUTH EVERY 8 HOURS NEEDED FOR NAUSEA AND VOMITING 30 tablet 03/31/19 25 Active pantoprazole (ProtoNix) 40 MG EC tabletIndications :Epigastric pain TAKE 1 TABLET BY MOUTH EVERY MORNING BEFORE BREAKFAST. DO NOT BREAK, CRUSH, DISSOLVE OR CHEW 90 tablet 03/31/19 25 Active escitalopram (Lexapro) 10 MG tabletIndications :Generalized anxiety disorder Take 1 tablet (10 mg) by mouth Once per day. 30 tablet 2 12/02/19 24 2024 Discontinued ondansetron ODT (Zofran-ODT) 4 MG disintegrating tablet Take 1 tablet by mouth every 8 (eight) hours if needed for vomiting or nausea. 08/15/19 24 2024 Discontinued pantoprazole (ProtoNix) 20 MG EC tablet Take 1 tablet (20 mg) by mouth Once per day. 90 tablet 01/07/20 24 2024 Discontinued ondansetron (Zofran) 4 MG tabletIndications :Nausea Take 2 tablets (8 mg) by mouth every 8 (eight) hours if needed for nausea or vomiting for up to 7 days. 30 tablet 03/02/20 24 2024 Discontinued pantoprazole (Protonix) 40 MG EC tabletIndications :Epigastric pain Take 1 tablet (40 mg) by mouth before breakfast. Do not crush, chew, or split. 30 tablet 1 03/02/20 24 2024 Discontinued Active Problems Problem Noted Date Diagnosed Date Nausea 03/02/2024 Epigastric pain 03/02/2024 Assessment & Plan (03/02/2024 2:18 PM EST): I went up on his pantoprazole to 40mg daily Zofrna PRN Patient has upcoming GI appointment on 03/16/23 I printed letter and advise not to miss his appointment Acute kidney injury superimposed on CKD ([facility] ) 03/02/2024 Assessment & Plan (03/02/2024 2:17 PM EST): Drink plenty of water Avoid nephrotoxic medication Work on glucose and blood pressure control 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 with imaging system administrator 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 2 diabetes mellitus ([facility] /[facility]) 12/02/2023 Assessment & Plan (03/02/2024 2:16 PM EST): C/w current medications, diabetic diet was advised, f/u with PCP Assessment & Plan (01/27/2024 4:34 PM EST): Plan to f/u with nephrology Will obtain BMP today to monitor renal function Encouraged adequate hydration and avoidance of NSAIDs Primary hypertension 06/11/2022 Overview (02/05/2023): ?? Olmesartan 5mg daily - Aerobic exercise to reduce BP. Initial goal of 30 min walk 3-5x/week. Increase as tolerated. - low-sodium diet (goal: <2g/day) and heart healthy diet such as DASH to reduce BP and prevent ASCVD. - Home BP monitoring 1-2 x day with goal of <140/90. - Seek immediate medical attention for chest pain, palpitations, SOB, syncope, or sudden changes in mental status. - Do not change or discontinue current prescriptions without first consulting health care provider Assessment & Plan (03/02/2024 2:19 PM EST): I advise low Na diet I advise to take his amlodipine 10mg every day without missing any dose, f/u in 1 week with nurse for BP check, plan would be accordingly PCP decision Assessment & Plan (01/27/2024 4:37 PM EST): Pt will continue to take amlodipine and carvedilol daily Pt will take home Bps and keep a log for next 2 weeks Pt will RTC in 2 weeks for RN BP check ad then f/u with PCP in March to f/u on all chronic conditions Assessment & Plan (02/05/2023 9:25 PM EST): ?? BP with mild elevation in office. Reports home readings well controlled ?? Inconsistently taking olmesartan 5mg ?? Will continue to monitor Assessment & Plan (06/11/2022 1:11 PM EDT): ?? BP elevated in office. Patient states he did not take medication today. Reports home BP well controlled. Will continue to monitor ADHD 03/12/2022 Healthcare maintenance 03/12/2022 Overview (03/12/2022): ?? C-Scope: Routine age 43 ?? PSA: Routine age 43 ?? HCV Screen: Negative 12/2021 ?? HIV Screen: Negative 12/2021 ?? STI Screening: RPR negative 12/2021 ?? Vision Exam: 12/2021, [place] ?? Dental Care: Discuss at follow up ?? Immunizations: Needs PCV20, covid booster at follow up Type 2 diabetes mellitus 12/15/2021 Overview (11/15/2023): Jardiance Lantus 10 units Metformin 500mg XR Pt reports he was previously >300lb, has since lost weight w/ diet and exercises Prior to TP appt 12/06/2021, patient was w/o medication x 8 years. Previously rx'd lantus, and humalog A1c: 03/2022-9.6% 07/2022-7.9% BMP: 08/2022 Microalbumin: Pending Foot Exam: 08/2022 Risk 0 Eye Exam: Referred to [facility]; followed by outside retinal specialist Lipid panel: 08/2022 WNL ASCVD: Calculate pending updated labs Statin: No ASA: No LATISHA/ARB: Yes Encouraged regular aerobic exercise for improved glycemic control Encouraged daily foot checks Encouraged lean protein snacks and to avoid foods high in sugar and simple carbohydrates Treatment Goals: A1c goal: <7% FBG goal: <130 2 hour post prandial goal: <180 Assessment & Plan (01/27/2024 4:36 PM EST): Glucose 151 today Pt using CGM Pt not taking lantus consistently, will stop insulin altogether at this time Will wait until pt is seen by nephrology before consideration for restarting metformin Pt will continue on Jardiance Pt will obtain routine eye examination next month Assessment & Plan (02/05/2023 9:22 PM EST): Lab Results Component Value Date HGBA1C 12.4 (A) 01/28/2023 ?? Pt not taking medications ?? STOP Trulicity (side effects) ?? START lantus-starting 10 units at bedtime with instructions to increase by 2 units every 3 days until morning FBG < 130 ?? Referral to [facility] DM educator Assessment & Plan (11/18/2022 12:46 PM EDT): Lab Results Component Value Date HGBA1C 9.6 (A) 10/24/2022 ?? RESTART trulicity at lower dose 3mg which patient previously tolerated well ?? Pt will contact HC if difficulty tolerating dose Assessment & Plan (08/05/2022 11:29 AM EDT): Lab Results Component Value Date HGBA1C 7.9 (H) 07/26/2022 ?? Significant improvement in A1c ?? INCREASE trulicity to 4.5mg subcutaneous weekly Assessment & Plan (06/11/2022 1:07 PM EDT): Lab Results Component Value Date HGBA1C 9.6 (A) 03/06/2022 ?? A1c improving from >14% ?? Continue current regimen ?? Pt may self-increase metformin to 1000mg b.i.d as tolerated with GI sx Assessment & Plan (03/12/2022 6:07 AM EST): - Increase trulicity to 3mg subcutaneous weekly - Start metformin XR 500mg once daily BMP: 12/2021 WNL, order repeat at f/u Microalbumin: 12/2021, elevated. Order repeat at f/u Foot Exam: Complete at follow up Eye Exam: 12/2021, completed in [place] Lipid panel: 12/2021 WNL, order repeat at f/u ASCVD: Calculate pending updated labs Statin: No ASA: No LATISHA/ARB: Yes Encouraged regular aerobic exercise for improved glycemic control Encouraged daily foot checks Encouraged lean protein snacks and to avoid foods high in sugar and simple carbohydrates Treatment Goals: A1c goal: <7% FBG goal: <130 2 hour post prandial goal: <180 Generalized anxiety disorder 12/15/2021 Overview (02/05/2023): ?? Hx of anxiety/depression. Previous therapy was not helpful Assessment & Plan (02/05/2023 9:24 PM EST): ?? Pt declines maintenance pharmacotherapy or referral to ?? Will trial PRN hydroxyzine for acute anxiety. Reviewed administration, risks, side effects ?? Contact HC if sx worsen or experiencing thoughts of SI or self harm. Pt has [facility] crisis contact information Assessment & Plan (11/18/2022 12:46 PM EDT): ?? STOP sertraline due to s/e ?? Declines N referral ?? Contact HC if sx worsen or experiencing thoughts of SI or self harm. Pt has [facility] crisis contact information Assessment & Plan (08/05/2022 11:31 AM EDT): ?? INCREASE sertraline to 50mg daily ?? Declines [facility] referral ?? Denies SI or thoughts of self harm Assessment & Plan (06/11/2022 1:08 PM EDT): ?? START sertraline 25mg once daily. Reviewed administration, risks, side effects ?? Declines [facility] referral at this time ?? Contact HC if sx worsen or experiencing thoughts of suicide or self harm Resolved Problems Problem Noted Date Diagnosed Date Resolved Date KARUNA (acute kidney injury) 11/15/2023 Encounters Date Type Department Care Team Description 03/30/2024 Refill [facility] [address] [place] [address] Irma Jensen MD Nausea; Epigastric pain 03/21/2024 Refill [facility] [address] [place] [address] [facility] Generalized anxiety disorder 03/16/2024 Orders Only GENERIC EXTERNAL DATA DEPARTMENT Provider, Generic External Data 03/13/2024 Orders Only GENERIC EXTERNAL DATA DEPARTMENT Provider, Generic External Data 03/11/2024 Orders Only [facility] External Provider, [facility] 03/02/2024 1:00 PM EST Office Visit [facility] [address] [place] [address] Irma Jensen MD Nausea (Primary Dx); 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 2 diabetes mellitus (CMS/HCC) ([facility]); Epigastric pain; Primary hypertension; Acute kidney injury superimposed on CKD (CMS/HCC) ([facility]/HCC) 03/02/2024 Travel 02/28/2024 Telephone [facility] [address] [place] [address] Chente Corey MA Chart Prep 02/17/2024 Refill [facility] [address] [place] [address] Irma Jensen MD Type 2 diabetes mellitus with hyperglycemia, without long-term current use of insulin ([facility]/HCC) 02/12/2024 Patient Outreach [address] [address] Leanne Alcazar FNP Transition Of Care (Tcm) (HDF- scheduled and SDOH screening completed on 12/02/2023) 01/27/2024 3:15 PM EST Office Visit [address] [address] Leanne Alcazar FNP Routine adult health maintenance (Primary Dx); 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 2 diabetes mellitus (CMS/HCC) ([facility]); Type 2 diabetes mellitus with hyperglycemia, without long-term current use of insulin ([facility]); Primary hypertension 01/27/2024 Travel 01/23/[address] [address] Leanne Alcazar FNP insurance 01/23/[address] [address] Leanne Alcazar FNP No Show 01/16/2024 Patient Outreach [address] [address] Leanne Alcazar FNP Pre-visit Planning (SDOH screening completed on 12/02/2023) 01/07/[address] [address] Noreen See PharmD Appointment Request 01/07/2024 Refill [facility] [address] [place], [place] [address] Leanne Alcazar FNP 12/31/[address] [address] Leanne Alcazar FNP from Last 3 Months Immunizations Name Administration Dates Next Due DTP 01/21/1995, 4,1993,09/21 DTaP, 5 pertussis antigens 10/26/1998 HPV, Quadrivalent 11/28/2012,06/18/2012,04/15/19 13 Hep B, Adolescent or Pediatric 5,12/10/2013,11/10/2013,01/18,1993,1993 Hep B, adult 12/19/2021 Hib (PRP-T) 07/31/1994,02/21/1994,1993 IPV 10/26/1998, 4,1993,09/21 Influenza injectable quadriv alent preservative free 01/28/2023,12/13/2021,12/04/2013 Influenza, IIV3, injectable 01/17/2009, 8,01/15/2007 Influenza, Split (incl. tammy fied surface antigen) 11/28/2012,04/15/2012,12/26/2010,01/13 Influenza, seasonal, injecta ble, preservative free 11/15/2023 MMR 11/10/2013,10/26/1998,07/31/1994 Meningococcal MCV4P ACYW-135 01/15/2007 Novel Tqpzufmea-F2C6-90, all formulations 01/17/2009 Pfizer Covid-19 Vaccine 12+ 01/28/2023 Pneumococcal Polysaccharide PPSV23 01/17/2009 Tdap 12/13/2021,09/09/2015,12/24/2005 Family History Medical History Relation Name Comments Lupus Sister Relation Name Status Comments Sister Social History Tobacco Use Types Packs/Day Years Used Date Smoking Tobacco: Never Passive Smoke Exposure: Never Smokeless Tobacco: Never Tobacco Cessation:Counseling Given: Not Answered Alcohol Use Standard Drinks/Week Comments Not Currently 0 (1 standard drink = 0.6 oz pur e alcohol) occassional Depression Answer Date Recorded Patient Health Questionnaire-9 Score 0 01/27/2024 Patient Health Questionnaire-9 Score 0 01/27/2024 Last PHQ-9: Questionnaire Data Not on file 1 03/28/2023 Housing Stability Answer Date Recorded What is your housing situation today? I have felton dusty 01/28/[address] you li [...] not to disclose 2021 10:40 AM EDT Last Filed Vital Signs Vital Sign Reading Time Taken Comments Blood Pressure 178/99 03/02/2024 1:27 PM EST n m eds taken Pulse 80 03/02/2024 1:27 PM EST Temperature 36.4 ??C (97.5 ??F) 03/02/2024 1:27 PM ES T Respiratory Rate 20 03/02/2024 1:27 PM EST Oxygen Saturation 99% 01/27/2024 3:29 PM EST Inhaled Oxygen Concentration - - Weight 92.5 kg (204 lb) 03/02/2024 1:27 PM EST Height 170.2 cm (5' 7 ) 03/02/2024 1:27 PM EST Body Mass Index 31.95 03/02/2024 1:27 PM EST Plan of Treatment Upcoming Encounters Date Type Department Care Team (Late st Contact Info) Description 04/06/2024 10:30 AM EST Office Visit [facility] [address] [place] [address] [facility], [facility] [address] [place] [address] Health Maintenance Due Date Last Done Comments Alcohol/Substance Use Screening 2005 Family Planning (PISQ) 2008 Pneumococcal Vaccine: Pediatrics (0 to 5 Years) and At-Risk Patients (6 to 64 Years) (2 of 2 - PCV) 01/17/2010 01/17/2009 Lipid Panel 07/27/2023 07/26/2022, 12/13/2021 COVID-19 Vaccine ( - 2023- season) 2023 01/28/2023, 02/08/2021, 07/08/2020, Additional history exists Eye Exam 12/03/2023 12/02/2021 Diabetes: Foot Exam 09/05/2024 09/06/2023, 09/06/2023, 07/26/2022, Additional history exists Diabetes: Hemoglobin A1C 09/13/2024 025, 09/06/2023, 06/12/2023, Additional history exists SDOH Screening 12/01/2024 12/02/2023 Depression Screening 01/26/2025 01/27/2024, 01/27/20 24 Tobacco Screening 03/02/2025 03/02/2024 DTaP/Tdap/Td Vaccines (9 - Td or Tdap) 12/14/2031 12/13/2021, 09/09/2015, 12/24/2005, Additional history exists Zoster Vaccines (1 of 2) 06/02/2043 RSV Patients and Patients Aged 60 years or older (1 - 1-dose 75+ series) 2068 HIB Vaccines Completed 07/31/1994, 02/02, 1993 IPV Vaccines Completed 10/26/1998, 02/02, 1993, Additional history exists Meningococcal Vaccine Aged Out 01/15/2007 No aristeo sally eligible based on patient's age to complete this topic HPV Vaccines Completed 11/28/2012, 06/02, 04/15/2012 HIV Screening Completed 12/13/2021 Hepatitis C Screening Completed 12/13/2021 Hepatitis B Vaccines Completed 12/19/2021, 03/15/2014, 12/10/2013, Additional history exists Influenza Vaccine Completed 11/15/2023, , 12/13/2021, Additional history exists Hepatitis A Vaccines Aged Out No long er eligible based on patient's age to complete this topic RSV under 20 months Aged Out No longe r eligible based on patient's age to complete this topic Rotavirus Vaccines Aged Out No longer eligible based on patient's age to complete this topic Procedures Procedure Name Priority Date/Time Associated Diagnosis Comments VITAMIN D 25-OH (D2 AND D3) Routine 03/16/2024 4:20 PM EST TISSUE TRANSGLUTAMINASE AB, IGA Routine 03/16/2024 4:20 PM EST VITAMIN B12/FOLATE, SERUM PANEL Routine 03/16/2024 4:20 PM EST HEMOGLOBIN A1C Routine 03/16/2024 4:20 PM EST BASIC METABOLIC PANEL Routine 03/13/2024 4:26 PM EST DRUG MONITOR, PANEL 1, SCREEN, URINE Routine 03/13/2024 1:05 PM EST URINALYSIS, COMPLETE, WITH REFLEX TO CULTURE Routine 03/13/2024 1:05 PM EST VENOUS BLOOD GAS Routine 03/13/2024 11:5 3 AM EST HIGH SENSITIVITY TROPONIN I Routine 03/13/2024 11:45 AM EST ETHANOL Routine 03/13/2024 11:45 AM EST BETA-HYDROXYBUTYRATE Routine 03/13/2024 11:45 AM EST LIPASE Routine 03/13/2024 11:45 AM EST C-REACTIVE PROTEIN Routine 03/13/2024 11 :45 AM EST MAGNESIUM Routine 03/13/2024 11:45 AM EST BASIC METABOLIC PANEL Routine 03/13/2024 11:45 AM EST HEPATIC FUNCTION PANEL Routine 11:45 AM EST B TYPE NATRIURETIC PEPTIDE (BNP) Routine 03/13/2024 11:45 AM EST PROTHROMBIN TIME-INR Routine 03/13/2024 11:45 AM EST CBC WITH AUTO DIFFERENTIAL Routine 03/13/2024 11:45 AM EST SARS COV2/INFLUENZA A/B AND RSV RNA QL NAAT Routine 03/13/2024 11:45 AM EST XR CHEST 1 VIEW Routine 03/13/2024 11:39 AM EST US RENAL BI Routine 03/11/2024 4:23 PM EST POCT GLUCOSE Routine 03/02/2024 1:28 PM EST 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 2 diabetes mellitus (CMS/HCC) (CMS/HCC) DRUG MONITOR, PANEL 1, SCREEN, URINE Routine 02/25/2024 1:32 PM EST URINALYSIS, COMPLETE, WITH REFLEX TO CULTURE Routine 02/25/2024 1:32 PM EST GLUCOSE, WHOLE BLOOD Routine 02/25/2024 1:10 PM EST HIGH SENSITIVITY TROPONIN I Routine 02/25/2024 12:19 PM EST CBC WITH AUTO DIFFERENTIAL Routine 02/25/2024 12:19 PM EST SARS COV2/INFLUENZA A/B AND RSV RNA QL NAAT Routine 02/25/2024 12:19 PM EST GLUCOSE, WHOLE BLOOD Routine 02/06/2024 5:24 PM EST VENOUS BLOOD GAS Routine 02/06/2024 12:4 3 PM EST MAGNESIUM Routine 02/06/2024 10:43 AM EST COMPREHENSIVE METABOLIC PANEL Routine 02/06/2024 10:43 AM EST CBC WITH AUTO DIFFERENTIAL Routine 02/06/2024 10:43 AM EST POCT GLUCOSE Routine 01/27/2024 3:52 PM EST Type 2 diabetes mellitus with hyperglycemia, without long-term current use of insulin (CMS/HCC) LIPID PANEL, STANDARD Routine 07/26/2022 12:08 PM EDT Type 2 diabetes mellitus with hyperglycemia, without long-term current use of insulin (CMS/HCC) ZZZ HISTORICAL HEPATITIS C AB W/REFL TO HCV RNA, QN, PCR Routine 12/13/2021 11:51 AM EDT HIV 1/2 ANTIGEN/ANTIBODY, FOURTH GENERATION W/RFL Routine 12/13/2021 11:51 AM EDT from Last 3 Months or Most Recently Relevant to Health Maintenance Results * (ABNORMAL) VITAMIN D 25-OH (D2 AND D3) (03/16/2024 4:20 PM EST) Vitamin D, 25-OH, D2 <4 ng/mL [facility] Comment:This test was develo ped and its analytical performancecharacteristics have been determined by [employer] [place], [place]. It hasnot been cleared or approved by the U.S. Food and DrugAdministration. This assay has been validated pursuantto the CLIA regulations and is used for clinicalpurposes.THIS TEST WAS PERFORMED AT:[facility] [place] [id number] W. MASON,MD,PHD Vitamin D, 25-OH, D3 17 ng/mL [facility] Comment:This test was develo ped and its analytical performancecharacteristics have been determined by [employer] [place], [place]. It hasnot been cleared or approved by the U.S. Food and DrugAdministration. This assay has been validated pursuantto the CLIA regulations and is used for clinicalpurposes. Vitamin D, 25-OH, Total 17(A) 30 - 100 ng/mL [facility] Comment:Vitamin D, 25-Hydrox y reports concentrations of twocommon forms, 25-OHD2 and 25-OHD3. 25-OHD3 indicatesboth endogenous production and supplementation.25-OHD2 is an indicator of exogenous sources such asdiet or supplementation. Therapy is based onmeasurement of Total 25-OHD, with levels <20 ng/mLindicative of Vitamin D deficiency, while levelsbetween 20 ng/mL and 30 ng/mL suggest insufficiency.Optimal levels are > or = 30 ng/mL.For additional information, please refer [email or web address]/[email or web address](This link is being provided for informational/educational purposes only.) 03/16/2024 4:20 PM EST 03/16/2024 4:20 PM EST us Generic External Data Provider LAB BLOOD ORDERAB LES Final Result [facility] [address] [place] [phone] * Vitamin B12 (Cobalamin) and Folate Panel, Serum (03/16/2024 4:20 PM EST) Vitamin B12 450 200 - 900 pg/mL [facility] Comment:NORMAL 200-900 PG/ML INDETERMINATE 160-199 PG/ML DEFICIENT < 160 PG/ML Folate 12.6 > or = 4.0 ng/mL [facility] Comment:Reference Values:> o r = 4.0 ng/mL< 4.0 ng/mL suggests folate deficiency Methotrexate, aminopterin and folinic acid(leucovorin) are chemotherapeutic agents whose molecularstructures are similar to folate; therefore, the Architectfolate assay cannot be used for patients using these drugs. 03/16/2024 4:20 PM EST 03/16/2024 4:20 PM EST us Generic External Data Provider LAB BLOOD ORDERAB LES Final Result Performing Organization Address [facility] Co de Phone Number [facility] [address] [place] [phone] * Tissue Transglutaminase Antibody, IgA (03/16/2024 4:20 PM EST) Transglutaminase IgA <1.0 U/mL [facility] Comment:Value Interpretation ----- <15.0 Antibody not detected> or = 15.0 Antibody detectedTHIS TEST WAS PERFORMED AT:[facility] [employer] [place] [id number] BAEZ MD 03/16/2024 4:20 PM EST 03/16/2024 4:20 PM EST us Generic External Data Provider LAB BLOOD ORDERAB LES Final Result Performing Organization Address [facility] Co de Phone Number [facility] [address] [place] [phone] * (ABNORMAL) Hemoglobin A1c (03/16/2024 4:20 PM EST) Hemoglobin A1c 6.8(H) <6.0 % [facility] Comment:Hemoglobin A1C Refer ence Range Adults: 4.8 - 6.0 % Non diabetic: < 6.0 % Goal: < 7.0 %Additional Action Suggested: > 8.0 %Note: Hemoglobin A1c results are invalid for patients with abnormal amounts of HbF. Blood transfusions may impact the HbA1c concentration in the patient sample. Estimated Average Glucose 148 mg/dL [facility] Comment:eAG = Estimated ave rage glucose which is %A1C expressed asaverage glucose, using the formula of the U7D-XtejnmePmlqycg Glucose study (ADAG), Diabetes Care, Vol.31,#8,Oct. 2007 03/16/2024 4:20 PM EST 03/16/2024 4:20 PM EST us Generic External Data Provider LAB BLOOD ORDERAB LES Final Result Performing Organization Address [facility] Co de Phone Number [facility] [address] [place] [phone] * (ABNORMAL) Basic Metabolic Panel (03/13/2024 4:26 PM EST) Only the most recent of2 resultswithin the time period is included. Sodium 140 135 - 145 mmol/L [facility] Potassium 4.7 3.3 - 5.1 mmol/L [facility] Chloride 107 96 - 108 mmol/L [facility] Carbon Dioxide 27 22 - 29 mmol/L [facility] Anion Gap 11(L) 12 - 20 [facility] Urea Nitrogen (BUN) 25(H) 9 - 16 mg/dL [facility] Creatinine, Serum 1.55(H) 0.5 - 1.4 mg/dL [facility] Creatinine Clr Calc Pharmacy 81.7 [facility] Comment:eGFR (calculated fro m the MDRD study equation) and eCrCl(calculated from the Cockcroft-Gault equation) are based ondifferent parameters and may not yield comparable results.If eCrCl result is absurd, please check patient'sheight/weight. Estimated Glomerular Filt Rate 53 [facility] Comment:Chronic Kidney Disea se: Estimated GFR < 60 mL/min/1.69v5Gnezun Kidney Disease: Estimated GFR < 15 mL/min/1.73m2 Glucose 156(H) 60 - 115 mg/dL [facility] Calcium 8.6 8.4 - 10.2 mg/dL [facility] 03/13/2024 4:26 PM EST 03/13/2024 4:29 PM EST us Generic External Data Provider LAB BLOOD ORDERAB LES Final Result Performing Organization Address [facility] Co de Phone Number [facility] [address] [place] [phone] * (ABNORMAL) Urinalysis, Complete, with Reflex to Culture (03/13/2024 1:05 PM EST) Only the most recent of2 resultswithin the time period is included. Color Urine Yellow [facility] Appearance Urine Clear [facility] PH 7.5 5.0 - 9.0 [facility] Glucose Urine UA >=1000(A) Negative mg/dL [facility] Urine Blood Large (3+)(A) Negative [facility] Specific Chemult - Urine 1.020 1.005 - 1.025 [facility] Urine Protein 300 (3+)(A) Neg-Trace mg/dL [facility] Urine Ketones Trace Negative mg/dL [facility] Nitrite Urine Negative Negative [facility] Leukocyte Esterase Urine Negative Negative [facility] RBC Urine >20(A) 0 - 2 /HPF [facility] Urine WBC 0-5 0 - 5 /HPF [facility] Urine Squamous Epithelial Cell 0-2 0 - 2 /HPF [facility] Urine Bacteria None Seen None Seen [facility] Hyaline Casts, Urine 0-2 0 - 2 /LPF [facility] 03/13/2024 1:0 5 PM EST 03/13/2024 1:08 PM EST Narrative [facility] - 03/13/2024 1:54 PM EST [id number], Clean Catch us Generic External Data Provider LAB URINE ORDERAB LES Final Result Performing Organization Address City/State/[facility] Co de Phone Number [facility] [address] [place] [phone] * (ABNORMAL) Drug Monitoring, Panel 1, Screen, Urine (03/13/2024 1:05 PM EST) Only the most recent of2 resultswithin the time period is included. Opiate Screen Urine Not Detected Not Detect [facility] Comment:Opiate cut-off is 30 0 ng/mL.Positive results are unconfirmed and should not be used fornon-medical purposes. Barbiturates, Urine Not Detected Not Detect [facility] Comment:Barbiturate cut-off is 200 ng/mL.Positive results are unconfirmed and should not be used fornon-medical purposes. Phencyclidine Screen Urine Not Detected Not Detect [facility] Comment:Phencyclidine cut-of f is 25 ng/mL.Positive results are unconfirmed and should not be used fornon-medical purposes. Amphetamine Screen Urine Not Detected Not Detect [facility] Comment:Amphetamine cut-off is 1000 ng/mL.Positive results are unconfirmed and should not be used fornon-medical purposes. Benzodiazepines Screen Urine Not Detected Not Detect [facility] Comment:Benzodiazepine cut-o ff is 200 ng/mL.Positive results are unconfirmed and should not be used fornon-medical purposes. Cocaine Screen Urine Not Detected Not Detect [facility] Comment:Cocaine cut-off is 3 00 ng/mL.Positive results are unconfirmed and should not be used fornon-medical purposes. Cannabinoid Screen Urine POSITIVE(A) Not Detect [facility] Comment:Cannabinoid cut-off is 50 ng/mL.Positive results are unconfirmed and should not be used fornon-medical purposes. Methadone Screen, Urine Not Detected Not Detect ng/mL [facility] Comment:Methadone cut-off is 300 ng/mL.Positive results are unconfirmed and should not be used fornon-medical purposes. FENTANYL URINE Not Detected Not Detect [facility] Comment:Fentanyl cut-off is 1 ng/mL.Positive results are unconfirmed and should not be used fornon-medical purposes. Oxycodone Urine Screen Not Detected Not Detect ng/mL [facility] Comment:Oxycodone cut-off is 100 ng/mL.Positive results are unconfirmed and should not be used fornon-medical purposes. Buprenorphine Screen Not Detected Not Detect ng/mL [facility] Comment:Buprenorphine cut-of f is 5 ng/mL.Positive results are unconfirmed and should not be used fornon-medical purposes. 03/13/2024 1:05 PM EST 03/13/2024 1:08 PM EST us Generic External Data Provider LAB URINE ORDERAB LES Final Result [facility] [address] [place] [phone] * (ABNORMAL) VENOUS BLOOD GAS (03/13/2024 11:53 AM EST) Only the most recent of2 resultswithin the time period is included. VBG pH 7.52(H) 7.32 - 7.43 [facility] Comment:METER #: [id number] additional_comment: Cb snowma VBG PCO2 29 mmHg [facility] Comment:METER #: [id number] additional_comment: Cb snowma VBG PO2 61 mmHg [facility] Comment:METER #: [id number] additional_comment: Cb snowma VBG Base Excess 2.4 mmol/L [facility] Comment:METER #: [id number] additional_comment: Cb snowma VBG HCO3 24 22 - 26 mmol/L [facility] Comment:METER #: [id number] additional_comment: Cb snowma O2 Sat, Arnel 92.0 % [facility] Comment:METER #: [id number] additional_comment: Cb snowma 03/13/2024 11:5 3 AM EST 03/13/2024 12:02 PM EST us Generic External Data Provider LAB BLOOD ORDERAB LES Final Result [facility] [address] [place] [phone] * High Sensitivity Troponin I (03/13/2024 11:45 AM EST) Only the most recent of2 resultswithin the time period is included. TROPONIN I HIGH SENSITIVITY <2.7 <3.5 - 35.0 ng/L [facility] Comment:The Akers high sens itivity Troponin-I results should beused in conjunction with other diagnostic information suchas ECG, clinical observations and information, and patientsymptoms to aid in the diagnosis of MT. 03/13/2024 11:4 5 AM EST 03/13/2024 11:51 AM EST us Generic External Data Provider LAB BLOOD ORDERAB LES Final Result Performing Organization Address City/[facility]/ZIP Co de Phone Number [facility] [address] [place] [phone] * Ethanol (03/13/2024 11:45 AM EST) ETHANOL (MG/DL) IN SER/PLAS <10 mg/dL [facility] Comment:Serum/plasma ethanol results are to be used formedical/treatment purposes only. 03/13/2024 11:4 5 AM EST 03/13/2024 11:51 AM EST Generic External Data Provider LAB BLOOD ORDERAB LES Final Result Performing Organization Address [facility] Co de Phone Number [facility] [address] [place] [phone] * SARS-CoV-2 RNA, Influenza A/B, and RSV RNA, Ql NAAT (03/13/2024 11:45 AM EST) Only the most recent of2 resultswithin the time period is included. Influenza A PCR NEGATIVE Negative [facility] Influenza B PCR NEGATIVE Negative [facility] Resp Syncy Virus RNA Qual PCR NEGATIVE Negative [facility] SARS COV2 PCR NEGATIVE Negative [facility] Comment:All test results mus t [...] use by authorized laboratories.Testing performed on the [employer] GeneXpert utilizingreal-time RT-PCR.All SARS CoV2 and positive influenza A/B results arereported to [facility]. 03/13/2024 11:4 5 AM EST 03/13/2024 11:51 AM EST Generic External Data Provider LAB MICROBIOLOGY - GENERAL ORDERABLES Final Result Performing Organization Address [facility] Co de Phone Number [facility] [address] [place] [phone] * (ABNORMAL) Beta-Hydroxybutyrate (03/13/2024 11:45 AM EST) Pathologist [facility] Beta-Hydroxybu tyrate 0.71(H) 0.02 - 0.27 mmol/L [facility] 03/13/2024 11:4 5 AM EST 03/13/2024 11:51 AM EST Generic External Data Provider LAB BLOOD ORDERAB LES Final Result Performing Organization Address [facility] Phone Number [facility] [address] [place] [phone] * (ABNORMAL) CBC auto differential (03/13/2024 11:45 AM EST) Only the most recent of3 resultswithin the time period is included. Pathologist [facility] White Blood Count 13.7(H) 4.8 - 10.8 X10*3/uL [facility] Red Blood Count 3.82(L) 4.60 - 5.80 X10*6/uL [facility] Hemoglobin 11.7(L) 14.0 - 18.0 g/dl [facility] Hematocrit 33.3(L) 42.0 - 52.0 % [facility] Mean Corpuscular Volume 87.2 80.0 - 98.0 fL [facility] Mean Corpuscular Hemoglobin 30.6 27.0 - 33.0 pg [facility] Mean Corpuscular HGB Conc 35.1 31.0 - 36.0 g/dl [facility] Red Cell Distribution Width 12.6 11.0 - 16.0 % [facility] Platelet Count 296 160 - 400 X10*3/uL [facility] Mean Platelet Volume 10.0 9.4 - 12.4 fL [facility] Neutrophils Percent Auto 84.7(H) 45 - 73 % [facility] Imm Gran Pct Auto 0.4 0.0 - 0.4 % [facility] Lymphocytes Percent Auto 10.1(L) 20 - 40 % [facility] Monocytes Percent Auto 3.9 2 - 11 % [facility] Eosinophils Percent Auto 0.5 0 - 4 % [facility] Basophils Percent Auto 0.4 0 - 2 % [facility] NRBC Pct Auto 0.0 0.0 - 0.2 /100WBC [facility] Neutrophils Absolute Auto 11.6(H) 2.0 - 8.3 x10*3/uL [facility] Imm Gran Abs Auto 0.06(H) 0.00 - 0.03 X10*3/uL [facility] Lymphocytes Absolute Auto 1.4 1.2 - 4.9 X10*3/uL [facility] Monocytes Absolute Auto 0.5 0.1 - 1.2 X10*3/uL [facility] Eosinophils Absolute Auto 0.1 0.0 - 0.4 X10*3/uL [facility] Basophils Absolute Auto 0.1 0.0 - 0.2 X10*3/uL [facility] NRBC Abs Auto 0.000 0.0 - 0.012 X10*3/uL [facility] 03/13/2024 11:4 5 AM EST 03/13/2024 11:51 AM EST us Generic External Data Provider LAB BLOOD ORDERAB LES Final Result [facility] [address] [place] [phone] * (ABNORMAL) Prothrombin Time-INR (03/13/2024 11:45 AM EST) Prothrombin Time 10.1(L) 10.9 - 12.4 [facility] INTERNATIONAL NORM RATIO 0.9 0.9 - 1.1 [facility] Comment:INTERNATIONAL NORMAL IZED RATIO [...] ORDERAB LES Final Result Performing Organization Address [facility] Co de Phone Number [facility] [address] [place] [phone] * C-reactive Protein (03/13/2024 11:45 AM EST) C Reactive Protein 0.28 < or = 0.50 mg/dL [facility] 03/13/2024 11:4 5 AM EST 03/13/2024 11:51 AM EST [employer] External Data Provider LAB BLOOD ORDERAB LES Final Result Performing Organization Address [facility] de Phone Number [facility] [address] [place] [phone] * (ABNORMAL) B Type Natriuretic Peptide (BNP) (03/13/2024 11:45 AM EST) B Type Natriuretic Peptide 154(H) <100 pg/mL [facility] Comment:For those patients w ho are being treated with Natrecor(nesiritide, recombinant BNP), BNP testing should beperformed at least two hours post treatment in order toensure that only endogenous levels of BNP are detected. 03/13/2024 11:4 5 AM EST 03/13/2024 11:51 AM EST us Generic External Data Provider LAB BLOOD ORDERAB LES Final Result Performing Organization Address [facility] Co de Phone Number [facility] [address] [place] [phone] * Magnesium (03/13/2024 11:45 AM EST) Only the most recent of2 resultswithin the time period is included. Magnesium 2.4 1.6 - 2.6 mg/dL [facility] 03/13/2024 11:4 5 AM EST 03/13/2024 11:51 AM EST Generic External Data Provider LAB BLOOD ORDERAB LES Final Result Performing Organization Address [facility] Phone Number [facility] [address] [place] [phone] * Lipase (03/13/2024 11:45 AM EST) Lipase 32 8 - 78 U/L [facility] 03/13/2024 11:4 5 AM EST 03/13/2024 11:51 AM EST Generic External Data Provider LAB BLOOD ORDERAB LES Final Result Performing Organization Address [facility] de Phone Number [facility] [address] [place] [phone] * Hepatic Function Panel (03/13/2024 11:45 AM EST) Bilirubin, Total 0.7 0.0 - 1.0 mg/dL [facility] Bilirubin, Direct 0.2 0.0 - 0.5 mg/dL [facility] Aspartate Amino Transferase 28 5 - 37 U/L [facility] Comment:Slight Hemolysis.Int erpret result with caution. Alanine Aminotransferase 16 0 - 40 U/L [facility] Total Protein 7.8 6.5 - 8.0 g/dL [facility] Albumin Level 4.1 3.5 - 5.0 g/dL [facility] Alkaline Phosphatase 92 39 - 117 U/L [facility] 03/13/2024 11:4 5 AM EST 03/13/2024 11:51 AM EST us Generic External Data Provider LAB BLOOD ORDERAB LES Final Result [facility] [address] [facility] [place] [phone] * XR Chest 1 View (03/13/2024 11:39 AM EST) Anatomical Region Laterality Modality Chest Radiographic Robyn ging 03/13/2024 11:3 9 AM EST Narrative 03/13/2024 12:21 PM EST ? [facility] ?[address] ?[place] [address] ?XRay Report ? Signed ? Patient: Boateng,Tristen ?MR#: [id number] ?? 8 ? : 1995 ?Acct:[id number] ? Age/Sex: 28 / M ?ADM Date: 03/13/24 ? Loc: HO.ED ? Attending Dr: ? Ordering Physician: Stefan Sequeira MD ?? Date of Service: 03/13/24 ?? Procedure(s): XR chest 1V ?? Accession Number(s): [id number] ? cc: Stefan Sequeira MD; Leanne Alcazar [...] signed by Amarjit Kim MD in OV> ?03/13/24 1218 ? DD/ 1139 ? TD/TT: 03/13/24 1207 ? Neurophysiologist: ? Procedure Note Donsonjordanter, Image - 03/13/2024 [place] [address] XRay Report Signed Patient: Mala Boateng#: [id number] 8 : 1995Acct:[id number] Age/Sex: 28 / MADM Date: 03/13/24 Loc: HO.ED Attending Dr: Ordering Physician: Stefan Sequeira MD Date of Service: 03/13/24 Procedure(s): XR chest 1V Accession Number(s): [id number] cc: Stefan Sequeira MD; [facility]AM[facility]ATION: XR CHEST CLINICAL INFORMATION: sever abdominal [...] 03/13/24 1218 DD/ 1139 TD/TT: 03/13/24 1207 Neurophysiologist: us [facility] External Provider IMG XR PROCEDURES Final Result * US RENAL BI (03/11/2024 4:23 PM EST) Anatomical Region Laterality Modality Abdomen Ultrasound 03/11/2024 4:23 PM EST Narrative 03/13/2024 11:35 AM EST ? [facility] ?[address] ?[place] [address] ? Ultrasound Report ? Signed ? Patient: Boateng,Tristen ?MR#: [id number] ?? 8 ? : 1995 ?Acct:[id number] ? Age/Sex: 28 / M ?ADM Date: 03/11/24 ? Loc: HO.US ? Attending Dr: Myla Fraire DNP, WAD COMPRESSOR OPERATOR ADJUSTER-BC ? Ordering Physician: Myla Fraire DNP WAD COMPRESSOR OPERATOR ADJUSTER-BC ?? Date of Service: 03/11/24 ?? Procedure(s): US renal BI ?? Accession Number(s): [id number] ? cc: Myla Fraire DNP, WAD COMPRESSOR OPERATOR ADJUSTER-BC; [facility] WAD COMPRESSOR OPERATOR ADJUSTER ? EXAMINATION: ??US KIDNEY BILATERAL ? HISTORY: N18.2 - Chronic kidney disease, stage 2 (mild) ? TECHNIQUE: Real-time grayscale ultrasound imaging of the kidneys was ?? performed and images were reviewed. ? COMPARISON: Correlation is made with a CT of the abdomen dated ?? 05/20/2022. ? FINDINGS: ? Right kidney: ??The right kidney measures 12.8 x 7.6 x 5.9 cm. ??Renal ?? parenchymal echotexture and thickness are normal. ??There are no masses. ?? There is no hydronephrosis or renal calculi. ? Left Kidney: ??The left kidney measures 11.3 x 6.2 x 6.5 cm. ??Renal ?? parenchymal echotexture and thickness are normal. ??There are no masses. ?? There is no hydronephrosis or renal calculi. ? US/US renal BI ?? IMPRESSION: ? Unremarkable renal ultrasound. ? Electronically signed by: ??Martin Puentes MD ??03/13/2024 11:32 AM EST ? Dictated By: ?Martin Puentes MD ? Signed By: ?<Electronically signed by Martin Puentes MD in OV> ?03/13/24 1132 ? DD/ 1623 ? TD/TT: 03/11/24 1625 ? Neurophysiologist: ? Procedure Note Lotus Bond - 03/13/[address] [address] Ultrasound Report Signed Patient: KiloMala#: [id number] 8 : 1995Acct:[id number] Age/Sex: 28 / MADM Date: 03/11/24 Loc: HO. Attending Dr: YUKI Xiong DNP Ordering Physician: Myla Fraire DNP, FNP-BC Date of Service: 03/11/24 Procedure(s): US renal BI Accession Number(s): [id number] cc: Myla Fraire DNP, FNP-BC; [facility] EXAMINATION: US KIDNEY BILATERAL HISTORY: N18.2 - Chronic kidney disease, stage 2 (mild) TECHNIQUE: Real-time grayscale ultrasound imaging of the kidneys was performed and images were reviewed. COMPARISON: Correlation is made with a CT of the abdomen dated 05/20/2022. FINDINGS: Right kidney: The right kidney measures 12.8 x 7.6 x 5.9 cm. Renal parenchymal echotexture and thickness are normal. There are no masses. There is no hydronephrosis or renal calculi. Left Kidney: The left kidney measures 11.3 x 6.2 x 6.5 cm. Renal parenchymal echotexture and thickness are normal. There are no masses. There is no hydronephrosis or renal calculi. US/US renal BI IMPRESSION: Unremarkable renal ultrasound. Electronically signed by: Martin Puentes MD 03/13/2024 11:32 AM EST Dictated By: Martin Puentes MD Signed By: <Electronically signed by Martin Puentes MD in OV> 03/13/24 1132 DD/ 1623 TD/TT: 03/11/24 1625 Neurophysiologist: [facility] External Provider IMG US PROCEDURES Final Result * (ABNORMAL) POCT Glucose (03/02/2024 1:28 PM EST) Only the most recent of2 resultswithin the time period is included. Glucose Blood, POC 281(A) 60 - 200 mg/dL QC Media Lot # [id number] Lot# Expiration Date Blood Capillary blood specimen / Unknown 03/02/2024 1:28 PM EST us Irma Aleman MD POINT OF CARE TEST EN TER/EDIT ORDERABLES Final Result * (ABNORMAL) Glucose, Whole Blood (02/25/2024 1:10 PM EST) Only the most recent of2 resultswithin the time period is included. Glucose, Whole Blood 209(H) 60 - 115 mg/dL [facility] Comment:METER #: [id number] 02/25/2024 1:10 PM EST 02/25/2024 1:14 PM EST us Generic External Data Provider LAB BLOOD ORDERAB LES Final Result [facility] [address] [place] [phone] * (ABNORMAL) Comprehensive Metabolic Panel (02/06/2024 10:43 AM EST) Pathologist [facility] Sodium 134(L) 135 - 145 mmol/L [facility] Potassium 4.2 3.3 - 5.1 mmol/L [facility] Chloride 95(L) 96 - 108 mmol/L [facility] Carbon Dioxide 25 22 - 29 mmol/L [facility] Anion Gap 18 12 - 20 [facility] Urea Nitrogen (BUN) 34(H) 9 - 16 mg/dL [facility] Creatinine, Serum 2.07(H) 0.5 - 1.4 mg/dL [facility] Creatinine Clr Calc Pharmacy 57.6 [facility] Comment:eGFR (calculated fro m the MDRD study equation) and eCrCl(calculated from the Cockcroft-Gault equation) are based ondifferent parameters and may not yield comparable results.If eCrCl result is absurd, please check patient'sheight/weight. Estimated Glomerular Filt Rate 38 [facility] Comment:Chronic Kidney Disea se: Estimated GFR < 60 mL/min/1.63e2Kcnvsy Kidney Disease: Estimated GFR < 15 mL/min/1.73m2 Glucose 200(H) 60 - 115 mg/dL [facility] Calcium 9.8 8.4 - 10.2 mg/dL [facility] Bilirubin, Total 1.2(H) 0.0 - 1.0 mg/dL [facility] Aspartate Amino Transferase 18 5 - 37 U/L [facility] Alanine Aminotransferase 16 0 - 40 U/L [facility] Total Protein 7.6 6.5 - 8.0 g/dL [facility] Albumin Level 4.1 3.5 - 5.0 g/dL [facility] Alkaline Phosphatase 74 39 - 117 U/L [facility] 02/06/2024 10:4 3 AM EST 02/06/2024 10:46 AM EST us Generic External Data Provider LAB BLOOD ORDERAB LES Final Result [facility] [address] [place] [phone] * Lipid Panel, Standard (07/26/2022 12:08 PM EDT) Cholesterol, Total 169 <200 mg/dL [facility] HDL Cholesterol 53 > OR = 40 mg/dL [facility] Triglycerides 103 <150 mg/dL [facility] LDL Cholesterol 96 mg/dL (calc) [facility] Comment: Reference range: <100 Desirable range <100 mg/dL for primary prevention; ?? <70 mg/dL for patients with CHD or diabetic patients with > or = 2 CHD risk factors. LDL-C is now calculated using the Cristo-Carlos calculation, which is a validated novel method providing better accuracy than the Friedewald equation in the estimation of LDL-C. Cristo SS et al. ROSIO. 2013;310(19): 5491-8148 (http://education.CricHQ/faq/QEN427) Chol/HDLC Ratio 3.2 <5.0 (calc) [facility] Non-HDL Cholesterol 116 <130 mg/dL (calc) [facility] Comment: For patients with diabetes plus 1 major ASCVD risk factor, treating to a non-HDL-C goal of <100 mg/dL (LDL-C of <70 mg/dL) is considered a therapeutic option. Blood Venous blood specimen / Unknown 07/26/2022 12:08 PM EDT 07/26/2022 12:08 PM EDT Narrative [facility] - 07/27/2022 6:10 AM EDT FASTING:YES FASTING: YES [facility] LAB BLOOD ORDERABLES Final Re sult Performing Organization Address City/[facility]/ZIP Co de Phone Number [facility] [address], [place] [phone] [facility] [address] [place] [phone] * HEPATITIS C AB W/REFL TO HCV RNA, QN, PCR (12/13/2021 11:51 AM EDT) HEPATITIS C ANTIBODY NON-REACTI VE NON-REACT EULOGIO [facility] INDEX 0.04 <1.00 [facility] Comment: ?? HCV antibody was non-reactive. There is no laboratory ?? evidence of HCV infection. ?? In most cases, no further action is required. However, if recent HCV exposure is suspected, a test for HCV RNA (test code 50656) is suggested. ?? For additional information please refer to http://education.Investview/faq/HOK18h9 (This link is being provided for informational/ educational purposes only.) ?? 12/13/2021 11:5 1 AM EDT [facility] HISTORICAL/NON ORDERABLE LABS Final Result Performing Organization Address City/[facility]/ZIP Co de Phone Number CONVERTED LEGACY LABS * HIV 1/2 ANTIGEN/ANTIBODY,FOURTH GENERATION W/RFL (12/13/2021 11:51 AM EDT) HIV-1/2 ANTIGEN AND ANTIBODIES, 4TH GENERATION W/ REFLEX NON-REACT EULOGIO NON-REACT EULOGIO CONVERTED LEGACY LABS Comment: HIV-1 antigen and HIV-1/HIV-2 antibodies were not detected. There is no laboratory evidence of HIV infection. ?? PLEASE NOTE: This information has been disclosed to you from records whose confidentiality may be protected by state law. ??If your state requires such protection, then the state law prohibits you from making any further disclosure of the information without the specific written consent of the person to whom it pertains, or as otherwise permitted by law. A general authorization for the release of medical or other information is NOT sufficient for this purpose. ? For additional information please refer to http://ReturnHauler.Investview/faq/KIE631 (This link is being provided for informational/ educational purposes only.) ? The performance of this assay has not been clinically validated in patients less than 2 years old. ?? 12/13/2021 11:5 1 AM EDT [facility] LAB BLOOD ORDERABLES Final Re sult CONVERTED LEGACY LABS from Last 3 Months or Most Recently Relevant to Health Maintenance Insurance [facility] C3 * Guarantor: Tristen Boateng Account Type Relation to Patient Date of Phone Billing Address Personal/Family Self [address] [place] [address] * Guarantor: Tristen Boateng Account Type Relation to Patient Date of Phone Billing Address Personal/Family Self [address] [place] [address] Care Teams Food And Beverage Cashier Relationship Specialty Start Date End Date [place] CARL Perdomo [address] [place] [address] PCP - General Family Medicine 12/13/21
--- OUTSIDE RECORDS SUMMARY | 2024-03-31 15:33 | XMS_ITS | Encounter Summary ---
Author Organization [facility] Address [address] [place] [address] Phone Care Team Providers Care Vice Chancellor Name Role Phone Tete Sutherland MD Primary Care Provider Encounter Details Date Type Department Care Team (Late st Contact Info) Description 10/21/[address] [facility] Family Medicine [address] [place] [address] Family Medicine, Physician [address] [place], [place] [phone] Social History Tobacco Use Types Packs/Day Years [...] on filedocumented in this encounter Care Teams Vice Chancellor Relationship Specialty Start Date End Date Tete Sutherland MD [address] [place] [address] [place] [address] PCP - General 10/12/16 08/27/22 documented as of this encounter
--- OUTSIDE RECORDS SUMMARY | 2024-03-31 15:33 | XMS_ITS | Encounter Summary ---
Author Organization [facility] Address [address] [place] [address] Phone Care Team Providers Care Manager Route Name Role Phone Tete Sutherland MD Primary Care Provider Encounter Details Date Type Department Care Team (Late st Contact Info) Description 10/18/2016 Conversion Encounter [facility] [address] [place] [address] Social History Tobacco Use Types Packs/Day Years [...] on filedocumented in this encounter Care Teams Manager Route Relationship Specialty Start Date End Date Tete Sutherladn MD [address] [place] [address] PCP - General 10/12/16 08/27/22 documented as of this encounter
--- OUTSIDE RECORDS SUMMARY | 2024-03-31 15:33 | XMS_ITS | Encounter Summary ---
Author Organization [facility] Address [address] [place] [address] Phone Care Team Providers Care Surfboard Designer Name Role Phone Tete Sutherland MD Primary Care Provider Encounter Details Date Type Department Care Team (Late st Contact Info) Description 05/26/2014 Documentation [facility] Family Medicine [address] [place] [address] Family Medicine, Physician [address] [place], [place] [phone] Social History Tobacco Use Types Packs/Day Years [...] on filedocumented in this encounter Care Teams Surfboard Designer Relationship Specialty Start Date End Date Tete Sutherland MD [address] [place] [address] [place] [address] PCP - General 10/12/16 08/27/22 documented as of this encounter
--- OUTSIDE RECORDS SUMMARY | 2024-03-31 15:33 | XMS_ITS | Encounter Summary ---
Author Organization [employer] Address [address] [facility] [address] [place] [address] Care Team Providers Care Baggage Screener Name Role Phone Leanne Alcazar SENIOR TELECOMMUNICATIONS SPECIALIST Primary Care Provider [phone] Reason for Visit * Reason Comments Med Refill Encounter Details Date Type Department Care Team ([facility] st Contact Info) Description 03/30/2024 Refill [facility] MEDICINE [address] [place], [place] [phone] Irma Jensen MD [address] [place], [place] [phone] Nausea; Epigastric pain Social History Tobacco Use Types Packs/Day Years [...] Description 04/06/2024 10:30 AM EST Office Visit [facility] MEDICINE [address] [place] [address] Leanne Alcazar FNP [address] [place] [address] documented as of this encounter Visit Diagnoses Diagnosis Nausea Nausea alone Epigastric pain Abdominal pain, epigastric documented in this encounter Additional Health Concerns Assessment Noted Time PHQ-9 Depression Total Score: 0 01/27/20 24 3:31 PM EST documented as of this encounter Care Teams Baggage Screener Relationship Specialty Start Date End Date Leanne Alcazar FNP [address] [place] [address] PCP - General Family Medicine 12/13/21 documented as of this encounter
--- OUTSIDE RECORDS SUMMARY | 2024-03-31 15:33 | XMS_ITS | Clinical Summary ---
Author Organization [facility] Address [address] [place] [address] Phone Care Team Providers Care Medical Collections Specialist Name Role Phone Unavailable Primary Care Provider Unavailabl e Immunizations Name Administration Dates Next Due DTP 01/21/1995, 4,1993,09/21 DTaP 5 10/26/1998 H1N1 01/17/2009 HPV, Quadrivalent 11/28/2012,06/18/2012,04/15/19 13 Hep B, ped/adol 03/15/2014, 4,11/10/2013,01/18,1993,1993 Hib (PRP-T) 07/31/1994,02/21/1994,1993 IPV 10/26/1998, 4,1993,09/21 Influenza Split 11/28/2012, 3,12/26/2010,01/13 Influenza, injectable, quadr ivalent, preservative free 12/04/2013 Influenza, injectable, trivalent 01/17/2009,01/02,01/15/2007 MMR 11/10/2013,10/26/1998,07/31/1994 Meningococcal Conj (Menactra) MCV4P 01/15/2007 Pneumococcal Polysaccharide 01/17/2009 Tdap 12/24/2005 Family History Relation Name Status Comments Brother Alive Brother: ADD/AD HD Obesity Father Alive Father: Hyperli pidemia Migraines Mother Alive Mother: Migrain es Obesity Other Family history of Diabetes mellitus Sister Alive Sister: Lupus O besity Social History Tobacco Use Types Packs/Day Years Used Date Smoking Tobacco: Never Comments:Never smoker Sex and Gender Information Value Date Recorded Sex Assigned at Not on file Legal Sex Male 4:51 PM EDT Gender Identity Not on file Sexual Orientation Not on file Last Filed Vital Signs Vital Sign Reading Time Taken Comments Blood Pressure 130/90 09/18/2011 12:00 AM EDT Pulse 96 02/17/2010 12:00 AM EST Temperature 36.9 ??C (98.4 ??F) 06/18/2012 12:00 AM E DT Respiratory Rate - - Oxygen Saturation - - Inhaled Oxygen Concentration - - Weight 129 kg (283 lb 8 oz) 06/18/2012 12:00 AM EDT Height 169.7 cm (5' 6.8 ) 04/15/2012 12:00 AM ES T Body Mass Index 44.67 04/15/2012 12:00 AM EST Plan of Treatment Health Maintenance Due Date Last Done Comments Varicella Vaccines (1 of 2 - 13+ 2-dose series) 12/08/2013 DTaP,Tdap,and Td Vaccines (7 - Td or Tdap) 12/25/2015 12/24/2005, 10/26/1998, 01/21/1995, Additional history exists Influenza Vaccines (#1) 2023 12/05/19 14, 11/28/2012, 04/15/2012, Additional history exists COVID-19 Vaccine (2023- season) 2023 HIB Vaccines Completed 07/31/1994, 02/02, 1993 IPV Vaccines Completed 10/26/1998, 02/02, 1993, Additional history exists Meningococcal Vaccine Aged Out 01/15/2007 No aristeo sally eligible based on patient's age to complete this topic Pneumococcal Vaccine Aged Out 01/17/2009 No long er eligible based on patient's age to complete this topic HPV Vaccines Completed 11/28/2012, 06/02, 04/15/2012 MMR Vaccines Completed 11/10/2013, 10/03, 07/31/1994 Hepatitis B Vaccines Completed 03/15/2014, 12/10/2013, 11/10/2013, Additional history exists Hepatitis A Vaccines Aged Out No long er eligible based on patient's age to complete this topic Men B Vaccine Aged Out No longer elig ible based on patient's age to complete this topic
--- OUTSIDE RECORDS SUMMARY | 2024-03-31 15:33 | XMS_ITS | Encounter Summary ---
Demographics Address [facility] [address] [place] [address] Mobile Phone Work Phone Preferred Language en Marital Status Unknown Shinto Affiliation Unknown Race Other Race Ethnic Group Unknown Author Organization [employer] Address [address] [facility] [address] [place] [address] Care Team Providers Care Motors Assembler Name Role Phone Leanne Alcazar STOCK PREPARATION OPERATOR Primary Care Provider [phone] Encounter Details Date Type Department Care Team (Late st Contact Info) Description 03/11/2024 Orders Only [facility] External Provider, [facility] Social History Tobacco Use Types Packs/Day Years [...] Description 04/06/2024 10:30 AM EST Office Visit [facility] MEDICINE [address] [place] [address] PendergrassLeanne FNP [address] [place] [address] documented as of this encounter Procedures Procedure Name Priority Date/Time Associated Diagnosis Comments US RENAL BI Routine 03/11/2024 4:23 PM EST documented in this encounter Results * US RENAL BI (03/11/2024 4:23 PM EST) Anatomical Region Laterality Modality Abdomen Ultrasound 03/11/2024 4:23 PM EST Narrative 03/13/2024 11:35 AM EST ? [facility] ?[address] ?[place] [address] ? Ultrasound Report ? Signed ? Patient: Tristen Boateng ?MR#: [id number] ?? 8 ? : 1995 ?Acct:[id number] ? Age/Sex: 28 / M ?ADM Date: 03/11/24 ? Loc: HO.US ? Attending Dr: Myla Fraire DNP, STOCK PREPARATION OPERATOR-BC ? Ordering Physician: Myla Fraire DNP, STOCK PREPARATION OPERATOR-BC ?? Date of Service: 03/11/24 ?? Procedure(s): US renal BI ?? Accession Number(s): [id number] ? cc: Myla Fraire KORTNEY, CARL-TOMI; Leanne Alcazar CARL ? EXAMINATION: ??US KIDNEY BILATERAL ? HISTORY: [...] DD/ 1623 ? TD/TT: 03/11/24 1625 ? Feather Boner: ? Procedure Note Lotus Bond - 03/13/2024 [place] [address] Ultrasound Report Signed Patient: Mala Boateng#: [id number] 8 : 1995Acct:[id number] Age/Sex: 28 / MADM Date: 03/11/24 Loc: HO.US Attending Dr: YUKI Xiong DNP Ordering Physician: Myla Fraire DNP, FNP-BC Date of Service: 03/11/24 Procedure(s): US renal BI Accession Number(s): [id number] cc: Myla Fraire DNP, FNP-BC; Leanne Alcazar EXAMINATION: US KIDNEY BILATERAL HISTORY: N18.2 - [...] Martin Puentes MD 03/13/2024 11:32 AM EST RP Dictated By: Martin Puentes MD Signed By: <Electronically signed by Martin Puentes MD in OV> 03/13/24 1132 DD/ 1623 TD/TT: 03/11/24 1625 Feather Boner: [facility] External Provider IMG US PROCEDURES Final Result documented in this encounter Visit Diagnoses Not on filedocumented in this encounter Additional Health Concerns Assessment Noted Time PHQ-9 Depression Total Score: 0 01/27/20 24 3:31 PM EST documented as of this encounter Care Teams Motors Assembler Relationship Specialty Start Date End Date Leanne Alcazar FNP [address] [place] [address] PCP - General Family Medicine 12/13/21 documented as of this encounter
--- OUTSIDE RECORDS SUMMARY | 2024-03-31 15:33 | XMS_ITS | Encounter Summary ---
Author Organization [facility] Address [address] [place] [address] Phone Care Team Providers Care President And Chief Operating Officer Name Role Phone Tete Sutherland MD Primary Care Provider Encounter Details Date Type Department Care Team (Late st Contact Info) Description 11/13/2012 Documentation [facility] Family Medicine [address] [place] [address] Family Medicine, Physician [address] [place], [place] [phone] Social History Tobacco Use Types Packs/Day Years [...] on filedocumented in this encounter Care Teams President And Chief Operating Officer Relationship Specialty Start Date End Date Tete Sutherland MD [address] [place] [address] [place] [address] PCP - General 10/12/16 08/27/22 documented as of this encounter
--- OUTSIDE RECORDS SUMMARY | 2024-03-31 15:33 | XMS_ITS | Encounter Summary ---
Author Organization [facility] Address [address] [place] [address] Phone Care Team Providers Care Principal Hardware Architect Name Role Phone Tete Sutherland MD Primary Care Provider Encounter Details Date Type Department Care Team (Late st Contact Info) Description 02/04/2014 Documentation [facility] Family Medicine [address] [place] [address] Family Medicine, Physician [address] [place], [place] [phone] Social History Tobacco Use Types Packs/Day Years [...] on filedocumented in this encounter Care Teams Principal Hardware Architect Relationship Specialty Start Date End Date Tete Sutherland MD [address] [place] [address] [place] [address] PCP - General 10/12/16 08/27/22 documented as of this encounter
--- OUTSIDE RECORDS SUMMARY | 2024-03-31 15:33 | XMS_ITS | Encounter Summary ---
Author Organization [employer] Address [address] [facility] [address]t [place] [address] Care Team Providers Care Faculty Support Coordinator Name Role Phone [facility] Primary Care Provider Reason for Visit * Reason Onset Date Comments Referral 06/21/2022 Encounter Details Date Type Department Care Team ([facility] st Contact Info) Description 06/21/2022 Telephone [facility] MEDICINE [address] [place], [place] [phone] [facility] [address] [place], [place] [phone] Referral Social History Tobacco Use Types Packs/Day Years Used Date Smoking Tobacco: Never Smokeless Tobacco: Never Alcohol Use Standard Drinks/Week Comments Never 0 (1 standard drink = 0.6 oz pur e alcohol) Depression Answer Date Recorded Patient Health Questionnaire-9 [...] not to disclose 2021 10:40 AM EDT COVID-19 Exposure Response Date Recorded In the last 10 days, have yo u been in contact with someone who was confirmed or suspected to have Coronavirus/COVID-19? No / Unsure 08/16/2022 9:53 AM EDT documented as of this encounter Miscellaneous Notes * Telephone Encounter - Jaky Valdes - 08/07/2022 12:25 PM EDT R# generated and faxed to office. * Telephone Encounter - Noris Crespo - 06/21/2022 9:51 AM EDT Tc from pt requesting a renewal referral for Practice Representative , [facility], [address] [place] [phone] , states needs more visit on referral for a year. Referral was placed on 06/08/22 Please contact at [phone] documented in this encounter Plan of Treatment Upcoming Encounters Date Type Department Care Team ([facility] st Contact Info) Description 04/06/2024 10:30 AM EST Office Visit [facility] MEDICINE [address] [place], [place] [phone] [place] [place] [address] [place], [place] [phone] documented as of this encounter Visit Diagnoses Not on filedocumented in this encounter Care Teams Faculty Support Coordinator Relationship Specialty Start Date End Date Leanne Alcazar FNP [address] [place] [address] PCP - General Family Medicine 12/13/21 documented as of this encounter
--- OUTSIDE RECORDS SUMMARY | 2024-03-31 15:33 | XMS_ITS | Encounter Summary ---
Author Organization [employer] Address [address] [facility] 7t [place] [address] Care Team Providers Care Power Driven Brush Maker Name Role Phone Leanne Alcazar BIOLOGICS SPECIALIST Primary Care Provider [phone] Encounter Details Date Type Department Care Team (Late st Contact Info) Description 03/02/2024 1:00 PM EST Office Visit [facility] MEDICINE [address] [place], [place] [phone] Irma Jensen MD [address] [place] [address] Nausea (Primary Dx); 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 2 diabetes mellitus (CMS/HCC) ([facility]/HCC); Epigastric pain; Primary hypertension; Acute kidney injury superimposed on CKD (CMS/HCC) ([facility]/HCC) Social History Tobacco Use Types Packs/Day Years [...] AM EDT documented as of this encounter Last Filed Vital Signs Vital Sign Reading Time Taken Comments Blood Pressure 178/99 03/02/2024 1:27 PM EST n m eds taken Pulse 80 03/02/2024 1:27 PM EST Temperature 36.4 ??C (97.5 ??F) 03/02/2024 1:27 PM ES T Respiratory Rate 20 03/02/2024 1:27 PM EST Oxygen Saturation - - Inhaled Oxygen Concentration - - Weight 92.5 kg (204 lb) 03/02/2024 1:27 PM EST Height 170.2 cm (5' 7 ) 03/02/2024 1:27 PM EST Body Mass Index 31.95 03/02/2024 1:27 PM EST documented in this encounter Progress Notes * Irma Aleman MD - 03/02/2024 1:00 PM EST SUBJECTIVE: Tristen Boateng is a 28 y.o. year old male who presents for HDF . [facility] (02/06/24 - 02/08/24) Patient with PMH of CKD and T2DM presented with N/V/D and epigastric abdominal pain. FISCAL ASSISTANT patient had episode of dizziness and weakness, and fell to the floor, however denied loss of consciousness. Patient hypertensive to 175/100 mmHg. Labs remarkable for Scr 2.07 mg/dL and beta-hydroxybutyrate 1.97mmol/L. EKG demonstrated sinus tachycardia to 107, without evidence of ischemic changes. Patient treated with pantoprazole, Maalox, ondansetron, and IV fluids for likely gastritis vs. gastroparesis. Scr improved to 1.23 mg/dL. Patient initiated on amlodipine with instruction to follow up with PCP for further hypertension management. Patient discharged to home. Medication changes that occurred during hospitalization include: Added Amlodipine 5 mg once daily Likely med rec error, as patient has been actively filling amlodipine 10 mg once daily (LF 01/27/24x 90ds) Changed None Discontinued None Acute Concerns: Patient tells me he thinks his diagnose regarding hyperemesis secondary to marijuana is incorrect, he has being having stomach problems since before (epigastric pain with nausea and vomiting), he reports he s again starting to have nausea, he has not vomit Patient reports he was taking amlodipine 10mg daily but he stopped taking the medication because hestates his blood pressure numbers where normal at home, today blood pressure is high, he denies headache, chest pain, SOB, dizziness, weakness or numbness Patient reports he has a jumpbasting collar baster and will re-schedule his appointment Social History Social History Narrative Tobacco Use: None ETOH: Occasional Marijuana Use: Daily, helps with sleep Other substance use: None Current living environment: Lives with partner (Melinda), son, brother Children: 1 (Elier) Employment/education: [employer] Sexually active: yes Partners are: AFAB Patient Active Problem List Diagnosis Type 2 diabetes mellitus (CMS/HCC) Generalized anxiety disorder ADHD Healthcare maintenance Primary hypertension 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 2 diabetes mellitus (CMS/HCC) (CMS/HCC) Nausea Epigastric pain Acute kidney injury superimposed on CKD (CMS/HCC) (CMS/HCC) Family History Problem Relation Name Age of Onset Lupus Sister Review of Systems Constitutional: Negative. HENT: Negative. Respiratory: Negative. Cardiovascular: Negative. Gastrointestinal: Positive for abdominal distention, abdominal pain, nausea and vomiting. Negative for anal bleeding, blood in stool, constipation, diarrhea and rectal pain. OBJECTIVE: Vitals: 03/02/24 1327 BP: (!) 178/99 BP Location: Left arm Patient Position: Sitting BP Cuff Size: Adult Pulse: 80 Resp: 20 Temp: 97.5 ??F (36.4 ??C) TempSrc: Oral Weight: 204 lb (92.5 kg) Height: 5' 7 (1.702 m) Physical Exam Cardiovascular: Rate and Rhythm: Normal rate and regular rhythm. Pulmonary: Effort: Pulmonary effort is normal. Breath sounds: Normal breath sounds. Abdominal: General: Abdomen is flat. Palpations: Abdomen is soft. Tenderness: There is abdominal tenderness in the epigastric area. Musculoskeletal: Right lower leg: No edema. Left lower leg: No edema. Neurological: Mental Status: He is alert. Follow Up: Follow up for 1 week blood pressure check with nurse then f/u with PCP . Current Outpatient Medications on File Prior to Visit Medication Sig Dispense Refill Alcohol Swabs (Alcohol Prep) 70 % pads USE TO CLEAN SKIN BEFORE testing blood SUGAR OR INJECTION 100 each 5 amLODIPine (Norvasc) 10 MG tablet Take 1 tablet (10 mg) by mouth Once per day. 90 tablet 0 Blood Glucose Monitoring Suppl (FreeStyle [place] Lite) w/Device kit TEST BLOOD SUGAR ONE OR TWO TIMES DAILY DIRECTED Blood Pressure Monitoring (Omron 3 Series BP Monitor) device USE TO CHECK BLOOD PRESSURE ONE OR TWOTIMES DAILY carvedilol (Coreg) 25 MG tablet Take 1 tablet (25 mg) by mouth 2 times daily. 180 tablet 0 Continuous Glucose Welding Foreman (FreeStyle Ave [address] [place]) device Scan sensor every 8 hours 1 each 0 Continuous Glucose Sensor (FreeStyle Ave 2 Sensor) misc USE DIRECTED CHANGE EVERY 14 DAYS 2 each 3 empagliflozin (Jardiance) 10 MG Take 1 tablet (10 mg) by mouth Once per day. 30 tablet 11 escitalopram (Lexapro) 10 MG tablet Take 1 tablet (10 mg) by mouth Once per day. 30 tablet 2 FREESTYLE LITE test strip USE DIRECTED TO TEST BLOOD SUGAR ONE OR TWO TIMES DAILY glucose 4 g chewable tablet Chew 4 tablets (16 g) if needed for low blood sugar. 50 tablet 12 glucose blood (FREESTYLE LITE) test strip USE 1 Each by DIRECTED route every day glucose blood test strip Use as directed to check blood sugar four times daily 100 each 12 insulin pen needle 30G x 5 mm misc Use as instructed 100 each 12 Lantus SoloStar 100 UNIT/ML pen Inject 10 Units under the skin Once per day. LORazepam (Ativan) 1 MG tablet Take 1 tablet by mouth 2 times daily. ondansetron ODT (Zofran-ODT) 4 MG disintegrating tablet Take 1 tablet by mouth every 8 (eight) hours if needed for vomiting or nausea. pantoprazole (ProtoNix) 20 MG EC tablet Take 1 tablet (20 mg) by mouth Once per day. 90 tablet 0 TRUEplus Lancets 33G misc TEST BLOOD SUGAR 4 times daily 120 each 1 No current facility-administered medications on file prior to visit. Problem List Items Addressed This Visit 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 2 diabetes mellitus ([facility]) ([facility]) C/w current medications, diabetic diet was advised, f/u with PCP Relevant Orders POCT Glucose (Completed) Nausea - Primary Relevant Medications ondansetron (Zofran) 4 MG tablet Epigastric pain I went up on his pantoprazole to 40mg daily Zofrna PRN Patient has upcoming GI appointment on 03/16/23 I printed letter and advise not to miss his appointment Relevant Medications pantoprazole (Protonix) 40 MG EC tablet Primary hypertension I advise low Na diet I advise to take his amlodipine 10mg every day without missing any dose, f/u in 1 week with nurse for BP check, plan would be accordingly PCP decision Acute kidney injury superimposed on CKD ([facility]) ([facility]) Drink plenty of water Avoid nephrotoxic medication Work on glucose and blood pressure control 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 with jumpbasting collar baster documented in this encounter Miscellaneous Notes * Assessment & Plan Note - Irma Aleman MD - 03/02/2024 2:19 PM EST Associated Problem(s): Primary hypertension I advise low Na diet I advise to take his amlodipine 10mg every day without missing any dose, f/u in 1 week with nurse for BP check, plan would be accordingly PCP decision * Assessment & Plan Note - Irma Aleman MD - 03/02/2024 2:18 PM EST Associated Problem(s): Epigastric pain I went up on his pantoprazole to 40mg daily Zofrna PRN Patient has upcoming GI appointment on 03/16/23 I printed letter and advise not to miss his appointment * Assessment & Plan Note - Irma Aleman MD - 03/02/2024 2:17 PM EST Associated Problem(s): Acute kidney injury superimposed on CKD (CMS/HCC) ([facility]/HCC) Drink plenty of water Avoid nephrotoxic medication Work on glucose and blood pressure control 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 with jumpbasting collar baster * Assessment & Plan Note - Irma Aleman MD - 03/02/2024 2:16 PM EST Associated Problem(s): 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 2 diabetes mellitus (CMS/HCC) ([facility]/HCC) C/w current medications, diabetic diet was advised, f/u with PCP documented in this encounter Plan of Treatment Upcoming Encounters Date Type Department Care Team (Late st Contact Info) Description 04/06/2024 10:30 AM EST Office Visit [facility] MEDICINE [address] [place] [address] [facility] [address] [place] [address] documented as of this encounter Procedures Procedure Name Priority Date/Time Associated Diagnosis Comments POCT GLUCOSE Routine 03/02/2024 1:28 PM EST 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 2 diabetes mellitus (CMS/HCC) ([facility]/HCC) documented in this encounter Results * (ABNORMAL) POCT Glucose (03/02/2024 1:28 PM EST) Glucose Blood, POC 281(A) 60 - 200 mg/dL QC Media Lot # [id number] Lot# Expiration Date Blood Capillary blood specimen / Unknown 03/02/2024 1:28 PM EST Irma Aleman MD POINT OF CARE TEST EN TER/EDIT ORDERABLES Final Result documented in this encounter Visit Diagnoses Diagnosis Nausea- Primary Nausea alone 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 2 diabetes mellitus (CMS/HCC) (CMS/HCC) Epigastric pain Abdominal pain, epigastric Primary hypertension Unspecified essential hypertension Acute kidney injury superimposed on CKD (CMS/HCC) (CMS/HCC) documented in this encounter Additional Health Concerns Assessment Noted Time PHQ-9 Depression Total Score: 0 01/27/20 24 3:31 PM EST documented as of this encounter Care Teams Power Driven Brush Maker Relationship Specialty Start Date End Date Leanne Alcazar FNP [address] [place] [address] PCP - General Family Medicine 12/13/21 documented as of this encounter
--- OUTSIDE RECORDS SUMMARY | 2024-03-31 15:33 | XMS_ITS | Encounter Summary ---
Author Organization [facility] Address [address] [place] [address] Phone Care Team Providers Care Avionics Engineer Name Role Phone Tete Sutherland MD Primary Care Provider Encounter Details Date Type Department Care Team (Late st Contact Info) Description 10/22/2012 Documentation [facility] [place] [address] [place] [address] Family Medicine, Physician [address] [place], [place] [phone] Social History Tobacco Use Types Packs/Day Years [...] on filedocumented in this encounter Care Teams Avionics Engineer Relationship Specialty Start Date End Date Tete Sutherland MD [address] [place] [address] [place] [address] PCP - General 10/12/16 08/27/22 documented as of this encounter
--- OUTSIDE RECORDS SUMMARY | 2024-03-31 15:33 | XMS_ITS | Encounter Summary ---
Author Organization [employer] Address [address] [facility] [address] [place] [address] Care Team Providers Care Home Care Music Therapist Name Role Phone Leanne Alcazar PLASTICS FITTER Primary Care Provider [phone] Encounter Details Date Type Department Care Team (Latest Contact Info) Description 03/02/2024 Travel Social History Tobacco Use Types Packs/Day Years [...] Description 04/06/2024 10:30 AM EST Office Visit [facility] MEDICINE [address] [place] [address] Leanne Alcazar FNP [address] [place] [address] documented as of this encounter Visit Diagnoses Not on filedocumented in this encounter Additional Health Concerns Assessment Noted Time PHQ-9 Depression Total Score: 0 01/27/20 24 3:31 PM EST documented as of this encounter Care Teams Home Care Music Therapist Relationship Specialty Start Date End Date Leanne Alcazar FNP [address] [place] [address] PCP - General Family Medicine 12/13/21 documented as of this encounter
--- OUTSIDE RECORDS SUMMARY | 2024-03-31 15:33 | XMS_ITS | Encounter Summary ---
Author Organization [employer] Address [address] [facility] 7t [place] [address] Care Team Providers Care Bookkeeping Service Sales Agent Name Role Phone Leanne Alcazar [facility] Primary Care Provider [phone] Reason for Visit * Reason Onset Date Comments Nurse Triage 08/15/2023 Encounter Details Date Type Department Care Team ([facility] st Contact Info) Description 08/15/[address] [facility] MEDICINE [address] [place], [place] [phone] [facility] [address] [place] [address] Nurse Triage Social History Tobacco Use Types Packs/Day Years Used Date Smoking Tobacco: Never Smokeless Tobacco: Never Alcohol Use Standard Drinks/Week Comments Yes 0 (1 standard drink = 0.6 oz pur e alcohol) occassional Depression Answer Date Recorded Patient Health Questionnaire-9 Score 24 01/28/2023 Patient Health Questionnaire-9 Score 24 01/28/2023 Last PHQ-9: Questionnaire Data Not on file 1 03/30/2022 Housing Stability Answer Date Recorded What is [...] Answer Date Recorded Patient Health Questionnaire-2 Score 6 01/28/2023 Sex and Gender Information Value Date Recorded Sex Assigned at Male 01/01/2022 10:40 AM EDT Legal Sex Male 10:40 AM EDT Gender Identity Male 01/01/2022 10:40 AM EDT Sexual Orientation Choose not to disclose 2021 10:40 AM EDT documented as of this encounter Miscellaneous Notes * Telephone Encounter - Carla Barfield RN - 08/15/2023 8:52 AM EDT Called pt. He states that yesterday pt. Was projectile vomiting all day. Pt has Diabetes and his blood sugars were WNL. Pt went to [facility] ED 08/14/23 in the evening due to vomiting. Pt was put on Zofran in ED but not sent home with a RX. Pt was told to look for blood in stool and blood in urine. Pt. Has not seen any blood. No vomiting today and current blood sugar 190. Pt is afraid to eat. Denies abdo nicole pain at present but is requesting script for Zofran to have on hand and also a fu has been made for 08/16/23 at 230pm. Pt will monitor blood sugars, rest and drink water for now. Advised if he starts to vomit again and it does not stop, to go back to ED for evaluation and fluids. Will send request for Zofran to Pt. PCP or provider. * Telephone Encounter - Jennifer Michel - 08/15/2023 8:49 AM EDT Symptom: Abdominal Pain - Male Outcome: Schedule an urgent appointment (within 4 hours) or talk to a nurse or provider soon Reason: Started within the past 3 days, pt was seen at [facility] on 08/14 for nausea/vomiting. Pt has not eaten in 28 hours. The caller accepted this outcome Please contact pt at [phone] documented in this encounter Plan of Treatment Upcoming Encounters Date Type Department Care Team (Late st Contact Info) Description 04/06/2024 10:30 AM EST Office Visit [facility] MEDICINE [address] [place] [address] Leanne Alcazar FNP [address] [place] [address] documented as of this encounter Visit Diagnoses Not on filedocumented in this encounter Additional Health Concerns Assessment Noted Time PHQ-9 Depression Total Score: 24 023 10:42 AM EST documented as of this encounter Care Teams Bookkeeping Service Sales Agent Relationship Specialty Start Date End Date Leanne Alcazar FNP [address] [place] [address] PCP - General Family Medicine 12/13/21 documented as of this encounter
--- OUTSIDE RECORDS SUMMARY | 2024-03-31 15:33 | XMS_ITS | Encounter Summary ---
Author Organization [employer] Address [address] [facility] [address]t [place] [address] Care Team Providers Care Industrial Machine Operator Name Role Phone [facility] Primary Care Provider [phone] Reason for Visit * Reason Comments Med Refill Encounter Details Date Type Department Care Team ([facility] st Contact Info) Description 03/21/2024 Refill [facility] MEDICINE [address] [place], [place] [phone] [facility] [address] [place], [place] [phone] Generalized anxiety disorder Social History Tobacco Use Types Packs/Day Years [...] Description 04/06/2024 10:30 AM EST Office Visit [facility] MEDICINE [address] [place] [address] Leanne Alcazar FNP [address] [place] [address] documented as of this encounter Visit Diagnoses Diagnosis Generalized anxiety disorder documented in this encounter Additional Health Concerns Assessment Noted Time PHQ-9 Depression Total Score: 0 01/27/20 24 3:31 PM EST documented as of this encounter Care Teams Industrial Machine Operator Relationship Specialty Start Date End Date Leanne Alcazar FNP [address] [place] [address] PCP - General Family Medicine 12/13/21 documented as of this encounter
--- OUTSIDE RECORDS SUMMARY | 2024-03-31 15:33 | XMS_ITS | Encounter Summary ---
Author Organization [facility] Address [address] [place] [address] Phone Care Team Providers Care Missile Mechanic Name Role Phone Tete Sutherland MD Primary Care Provider [phone] Encounter Details Date Type Department Care Team (Late st Contact Info) Description 04/08/2014 Documentation [facility] Family Medicine [address] [place] [address] Family Medicine, Physician [address] [place], [place] [phone] Social History Tobacco Use Types Packs/Day Years [...] on filedocumented in this encounter Care Teams Missile Mechanic Relationship Specialty Start Date End Date Tete Sutherland MD [address] [place] [address] [place] [address] PCP - General 10/12/16 08/27/22 documented as of this encounter
--- OUTSIDE RECORDS SUMMARY | 2024-03-31 15:33 | XMS_ITS | Encounter Summary ---
Author Organization [facility] Address [address] [place] [address] Phone Care Team Providers Care Gymnastics Coach Or Instructor Name Role Phone Tete Sutherland MD Primary Care Provider Encounter Details Date Type Department Care Team (Late st Contact Info) Description 08/05/2009 Documentation [facility] Family Medicine [address] [place] [address] Family Medicine, Physician [address] [place], [place] [phone] Social History Tobacco Use Types Packs/Day Years [...] on filedocumented in this encounter Care Teams Gymnastics Coach Or Instructor Relationship Specialty Start Date End Date Tete Sutherland MD [address] [place] [address] [place] [id number] PCP - General 10/12/16 08/27/22 documented as of this encounter
--- OUTSIDE RECORDS SUMMARY | 2024-03-31 15:33 | XMS_ITS | Encounter Summary ---
Author Organization [employer] Address [address] [facility] [address] [place] [address] Care Team Providers Care Adjunct Communications Faculty Member Name Role Phone Ottoniel [facility] Primary Care Provider [phone] Reason for Visit * Reason Onset Date Comments F 05/21/2022 Encounter Details Date Type Department Care Team ([facility] st Contact Info) Description 05/21/2022 Telephone [facility] MEDICINE [address] [place], [place] [phone] [facility] [address] [place] [address] [facility] Social History Tobacco Use Types Packs/Day Years Used Date Smoking Tobacco: Never Smokeless Tobacco: Never Alcohol Use Standard Drinks/Week Comments Never 0 (1 standard drink = 0.6 oz pur e alcohol) Sex and Gender Information Value Date Recorded Sex Assigned at Male 01/01/2022 10:40 AM EDT Legal Sex Male 10:40 AM EDT Gender Identity Male 01/01/2022 10:40 AM EDT Sexual Orientation Choose not to disclose 2021 10:40 AM EDT documented as of this encounter Miscellaneous Notes * Telephone Encounter - Amanda Jean - 05/21/2022 3:37 PM EDT HDF F/U (no symptoms) Patient hospitalized at [facility]. Patient was admitted on 05/20/2022 and discharged on 05/21/2022. The patient was diagnosed with Virus. Patient advised will forward to [facility] Clinical Coordinators for follow up and appointment scheduling. Please contact Pt at [phone] documented in this encounter Plan of Treatment Upcoming Encounters Date Type Department Care Team (Late st Contact Info) Description 04/06/2024 10:30 AM EST Office Visit [facility] MEDICINE [address] [place] [address] Leanne Alcazar FNP [address] [place] [address] documented as of this encounter Visit Diagnoses Not on filedocumented in this encounter Care Teams Adjunct Communications Faculty Member Relationship Specialty Start Date End Date Leanne Alcazar FNP [address] [place] [address] PCP - General Family Medicine 12/13/21 documented as of this encounter
--- OUTSIDE RECORDS SUMMARY | 2024-03-31 15:34 | XMS_ITS | Encounter Summary ---
Author Organization [email or web address] Address [address] [place] [address] Care Team Providers Care Hydroblaster Name Role Phone Leanne Alcazar SWITCHBOARD OPERATOR SUPERVISOR Primary Care Provider [phone] Encounter Details Date Type Department Care Team ([facility] st Contact Info) Description 03/16/2024 Orders Only GENERIC EXTERNAL DATA DEPARTMENT [...] Description 04/06/2024 10:30 AM EST Office Visit [facility] [address] [place] [address] [facility] [address] [place], [place] [phone] documented as of this encounter Procedures Procedure Name Priority Date/Time Associated Diagnosis Comments VITAMIN D 25-OH (D2 AND D3) Routine 03/16/2024 4:20 PM EST VITAMIN B12/FOLATE, SERUM PANEL Routine 03/16/2024 4:20 PM EST TISSUE TRANSGLUTAMINASE AB, IGA Routine 03/16/2024 4:20 PM EST HEMOGLOBIN A1C Routine 03/16/2024 4:20 PM EST documented in this encounter Results * (ABNORMAL) VITAMIN D 25-OH (D2 AND D3) (03/16/2024 4:20 PM EST) Vitamin D, 25-OH, D2 <4 ng/mL [facility] Comment:This test was sadny noel and its analytical performancecharacteristics have been determined by [employer], [place]. It hasnot been cleared or approved by the U.S. Food and DrugAdministration. This assay has been validated pursuantto the CLIA regulations and is used for clinicalpurposes.THIS TEST WAS PERFORMED AT:[id number] [place] [address]YEPDYCFSILVA EDGE MD,PHD Vitamin D, 25-OH, D3 17 ng/mL [facility] Comment:This test was sandy noel and its analytical performancecharacteristics have been determined by [employer] [place] [place]. It hasnot been cleared or approved by the U.S. Food and DrugAdministration. This assay has been validated pursuantto the CLIA regulations and is used for clinicalpurposes. Vitamin D, 25-OH, Total 17(A) 30 - 100 ng/mL [facility] Comment:Vitamin D, 25-Hydrox y [...] = 30 ng/mL.For additional information, please refer tohttp://education.[facility]/faq/EZW316(This link is being provided for informational/educational purposes only.) 03/16/2024 4:20 PM EST 03/16/2024 4:20 PM EST us Generic External Data Provider LAB BLOOD ORDERAB LES Final Result [facility] [address] [place] [phone] * Tissue Transglutaminase Antibody, IgA (03/16/2024 4:20 PM EST) Transglutaminase IgA <1.0 U/mL [facility] Comment:Value Interpretation ----- <15.0 Antibody not detected> or = 15.0 Antibody detectedTHIS TEST WAS PERFORMED AT:[facility] [place] [id number] BAEZ MD 03/16/2024 4:20 PM EST 03/16/2024 4:20 PM EST Generic External Data Provider LAB BLOOD ORDERAB LES Final Result Performing Organization Address [facility] de Phone Number [facility] [address] [place] [phone] * Vitamin B12 (Cobalamin) and Folate Panel, Serum (03/16/2024 4:20 PM EST) Vitamin B12 450 200 - 900 pg/mL [facility] Comment:NORMAL 200-900 PG/ML INDETERMINATE 160-199 PG/ML DEFICIENT < 160 PG/ML Folate 12.6 > or = 4.0 ng/mL [facility] Comment:Reference Values:> o r = 4.0 ng/mL< 4.0 ng/mL suggests folate deficiency Methotrexate, aminopterin and folinic acid(leucovorin) are chemotherapeutic agents whose molecularstructures are similar to folate; therefore, the Architectfolate assay cannot be used for patients using these drugs. 03/16/2024 4:20 PM EST 03/16/2024 4:20 PM EST [facility] External Data Provider LAB BLOOD ORDERAB LES Final Result Performing Organization Address [facility] Phone Number [facility] [address] [place] [phone] * (ABNORMAL) Hemoglobin A1c (03/16/2024 4:20 PM EST) Hemoglobin A1c 6.8(H) <6.0 % [facility] Comment:Hemoglobin A1C Refer ence Range Adults: 4.8 - 6.0 % Non diabetic: < 6.0 % Goal: < 7.0 %Additional Action Suggested: > 8.0 %Note: Hemoglobin A1c results are invalid for patients with abnormal amounts of HbF. Blood transfusions may impact the HbA1c concentration in the patient sample. Estimated Average Glucose 148 mg/dL [facility] Comment:eAG = Estimated ave rage glucose which is %A1C expressed asaverage glucose, using the formula of the H9B-NgljpraHorndtk Glucose study (ADAG), Diabetes Care, Vol.31,#8,Oct. 2007 03/16/2024 4:20 PM EST 03/16/2024 4:20 PM EST us Generic External Data Provider LAB BLOOD ORDERAB LES Final Result [facility] [address] [place] [phone] documented in this encounter Visit Diagnoses Not on filedocumented in this encounter Additional Health Concerns Assessment Noted Time PHQ-9 Depression Total Score: 0 01/27/20 24 3:31 PM EST documented as of this encounter Care Teams Hydroblaster Relationship Specialty Start Date End Date Leanne Alcazar FNP [address] [place] [phone] PCP - General Family Medicine 12/13/21 documented as of this encounter
== END 2024-03-31 14:55 | disposition home or self-care (01) ==
PROVIDERS: PCP Registered Nurse; Visit Provider Internal Medicine Hypertension Specialist
DX: I12.9 Hypertensive chronic kidney disease with stage 1 through stage 4 chronic kidney disease, or unspecified chronic kidney disease (principal); E11.22 Type 2 diabetes mellitus with diabetic chronic kidney disease; N18.31 Chronic kidney disease, stage 3a; N17.9 Acute kidney failure, unspecified
CPT/HCPCS: 93790; 99214

== ENCOUNTER → 2024-03-31 14:39 | Outpatient (BNVA) | payer MEDICAID, SELFPAY | PROVIDERS: PCP Registered Nurse; Visit Provider Internal Medicine Hypertension Specialist | DX: E11.22 Type 2 diabetes mellitus with diabetic chronic kidney disease (principal); I12.9 Hypertensive chronic kidney disease with stage 1 through stage 4 chronic kidney disease, or unspecified chronic kidney disease; N17.9 Acute kidney failure, unspecified; N18.31 Chronic kidney disease, stage 3a; Z79.4 Long term (current) use of insulin; Z79.84 Long term (current) use of oral hypoglycemic drugs | CPT/HCPCS: 93786; 99212 ==

== ENCOUNTER 2024-04-02 14:45 | Outpatient (AMB) | payer MEDICAID, SELFPAY ==
--- NOTE | 2024-04-02 14:47 | A.OFFVIS_ITS ---
Vital Signs 04/02/24 14:48 Height 5 ft 7 in Weight 202 lb 13.204 oz BMI 31.8 BP 126/80 Blood Pressure Location Rt brachial Position Sitting Pulse 75 Pulse Source Pulse Oximeter Intake Visit Reasons: Type 2 diabetes mellitus without complications Intake Note: NEW Patient presents today to establish treatment for Type 2 Diabetes Mellitus: Last Diabetic eye exam was on: 03/18/2024 Last Podiatry exam was on: Patient does not see a Chemical Tank Worker Most recent HbA1c: 6.8%, 03/16/2024 Random Glucose- 195 mg/dL, Today Wharf Labourer Required: No Accompanied by: Self / Same As Patient Allergies No Known Allergies [No Known Allergies*] Allergy (Verified 04/02/24 14:54) Medication List - Last Reconciled 04/02/24 by Myla Navarro MD amlodipine 10 mg PO DAILY atorvastatin 40 mg PO BEDTIME carvedilol 25 mg PO BID empagliflozin (Jardiance) 10 mg PO DAILY escitalopram oxalate 10 mg PO DAILY famotidine (Pepcid) 20 mg PO BEDTIME glucose 16 grams PO insulin glargine (Lantus Solostar U-100 Insulin) 10 units subcut BEDTIME losartan 50 mg PO DAILY pantoprazole 40 mg PO QAM HPI Comments Details: 28 year old presenting for diabetic consultation. Referred by gastroenterology Medical history: IDDM, CKD, hypertension, anxiety Diagnosed ~10 years of age PCP: [facility] A1C 6.8 03/16/2024 Current medications: Lantus 10 units, jardiance [address] CGM Was discharged mid March after hospitalized-admitted with KARUNA, intractable nausea and vomiting in the setting of cannabis hyperemesis syndrome: Patient was given IV fluid Protonix Haldol, aldosterone, supportive care patient seems to be improved significantly, tolerating diet. With hydration KARUNA improved Seeing nephrology, gastroenterology Family history of diabetes-dads side. Eye Exam May. Also sees retinal specialist. ROS CONSTITUTIONAL: Denies weight loss, fever and chills. HEENT: Denies changes in vision and hearing. RESPIRATORY: Denies SOB and cough. CV: Denies palpitations and CP GI: Denies abdominal pain, nausea, vomiting and diarrhea. : Denies dysuria and urinary frequency. MSK: Denies new myalgia and joint pain. SKIN: Denies rash and pruritus. NEUROLOGICAL: Denies headache PSYCHIATRIC: Denies recent changes in mood. PHYSICAL EXAM: GENERAL: Alert and oriented x 3. NAD EYES: EOMI. Anicteric. HENT: Moist mucous membranes. No scleral icterus. No cervical lymphadenopathy. LUNGS: Clear to auscultation bilaterally. CARDIOVASCULAR: Regular rate and rhythm. No murmur. No JVD. ABDOMEN: Soft, non-tender +bs EXTREMITIES: No edema. Non-tender. SKIN: No rashes or lesions. Warm. NEUROLOGIC: No focal neurological deficits. CN II-XII grossly intact PSYCHIATRIC: Cooperative. Appropriate mood and affect [facility] Medical History (Updated 04/02/24 @ 15:41 by Myla Navarro MD) Cannabis hyperemesis syndrome concurrent with and due to cannabis dependence Cannabis use disorder Hypertension Anxiety Chest pain ADHD Generalized anxiety disorder Type 2 diabetes mellitus Hypertension Surgical History [place] teeth extracted History of appendectomy History of eye surgery (~06/2022) Family History Father HTN (hypertension) Mother Arthritis Sister Lupus (systemic lupus erythematosus) Social History Household Members: Family Housing: Apartment Do you presently have visiting nurse or other home services: No Alcohol intake: former Patient Tobacco Use Status: Never used Tobacco e-Cigarette/Vaping Use: Never Used Second Hand Smoke Exposure: No (N/A) Substance Use Type: Marijuana Advance Directives Date on File: 11/01/23 service: No Physical Exam Vital Signs: BMI result Body Mass Index 31.8 Assessment & Plan Assessment & Plan (1) Type 2 diabetes mellitus: Code(s): E11.9 - Type 2 diabetes mellitus without complications Category: Medical Qualifiers: Diabetes mellitus mcc insulin use: with termination clerk use Diabetes mellitus complication status: with hyperglycemia Qualified Code(s): E11.65 - Type 2 diabetes mellitus with hyperglycemia; Z79.4 - custodial (current) use of insulin Plan: Increase lantus as needed to 20 units daily prior to next appt. Discussed fasting and post prandial glucose goals Patient has attended diabetic education in the past Patients last A1C at goal, however hyperglycemic now that GI symptoms have subsided hence increase in insulin Orders: Orders Glutamic acid decarboxylase Ab Today E11.21 - Type 2 diabetes mellitus with diabetic nephropathy Medications: Changed From insulin glargine (Lantus Solostar U-100 Insulin) 10 units subcut BEDTIME To insulin glargine (Lantus Solostar U-100 Insulin) 20 units (0.2 mL) subcut BEDTIME 15 mL 3RF Coding Level of Care Code Est Pt Level 4 (83946) Diagnoses Type 2 diabetes mellitus with hyperglycemia, with long-term current use of insulin E11.65; Z79.4 Diabetes mellitus termination clerk insulin use: with termination clerk use Diabetes mellitus complication status: with hyperglycemia
[2024-04-02 14:48] VITALS: BP 126/80; PULSE 75; BMI 31.8
[2024-04-02 15:03] LABS: Glucose, Whole Blood 194 mg/dL (60-115)
--- OUTSIDE RECORDS SUMMARY | 2024-04-02 18:40 | XMS_ITS | Encounter Summary ---
Author Organization [facility] Address [address] [place] [phone] Phone Care Team Providers Care Reconcilement Clerk Name Role Phone Tete Sutherland MD Primary Care Provider Encounter Details Date Type Department Care Team (Late st Contact Info) Description 04/08/2014 Documentation [facility] [place] [facility] [address] [place] [address] Family Medicine, Physician [address] [place], [place] [phone] Social History Tobacco Use Types Packs/Day Years [...] on filedocumented in this encounter Care Teams Reconcilement Clerk Relationship Specialty Start Date End Date Tete Sutherland MD [address] [place] [address] [place] [address] PCP - General 10/12/16 08/27/22 documented as of this encounter
--- OUTSIDE RECORDS SUMMARY | 2024-04-02 18:40 | XMS_ITS | Encounter Summary ---
Author Organization [employer] Address [address] [facility] 7t [place] [address] Care Team Providers Care Practicing Urologist Name Role Phone [facility] Primary Care Provider [phone] Reason for Visit * Reason Onset Date Comments Referral 06/21/2022 Encounter Details Date Type Department Care Team ([facility] st Contact Info) Description 06/21/2022 Telephone [facility] [address] [place], [place] [phone] [facility] [address] [place], [place] [phone] Referral Social History Tobacco Use Types Packs/Day [...] from pt requesting a renewal referral for Patent Chemist , [facility], [address] [place] [phone] , states needs more visit on referral for a year. Referral was placed on 06/08/22 Please contact at [phone] documented in this encounter Plan of Treatment Upcoming Encounters Date Type Department Care Team ([facility] st Contact Info) Description 04/06/2024 10:30 AM EST Office Visit [facility] [address] [place], [place] [phone] [place], [place], [facility] [address] [place], [place] [phone] documented as of this encounter Visit Diagnoses Not on filedocumented in this encounter Care Teams Practicing Urologist Relationship Specialty Start Date End Date Leanne Alcazar FNP [address] [place] [address] PCP - General Family Medicine 12/13/21 documented as of this encounter
--- OUTSIDE RECORDS SUMMARY | 2024-04-02 18:40 | XMS_ITS | Encounter Summary ---
Author Organization [employer] Address [address] [facility] 7t [place] [address] Care Team Providers Care Flare Stitcher Name Role Phone [facility] Primary Care Provider [phone] Reason for Visit * Reason Comments Med Refill Encounter Details Date Type Department Care Team ([facility] st Contact Info) Description 03/21/2024 Refill [facility] [address] [place], [place] [phone] [facility] [address] [place], [place] [phone] Generalized anxiety disorder Social History Tobacco Use [...] Description 04/06/2024 10:30 AM EST Office Visit [facility] [address] [place] [phone] Leanne Alcazar FNP [address] [place] [address] documented as of this encounter Visit Diagnoses Diagnosis Generalized anxiety disorder documented in this encounter Additional Health Concerns Assessment Noted Time PHQ-9 Depression Total Score: 0 01/27/20 24 3:31 PM EST documented as of this encounter Care Teams Flare Stitcher Relationship Specialty Start Date End Date Leanne Alcazar FNP [address] [place] [address] PCP - General Family Medicine 12/13/21 documented as of this encounter
--- OUTSIDE RECORDS SUMMARY | 2024-04-02 18:40 | XMS_ITS | Encounter Summary ---
Author Organization [facility] Address [address] [place] [phone] Phone Care Team Providers Care Research Physician Name Role Phone Tete Sutherland MD Primary Care Provider Encounter Details Date Type Department Care Team (Late st Contact Info) Description 10/22/2012 Documentation [facility] [place] [facility] [address] [place] [address] Family Medicine, Physician [address] [place], [place] [phone] Social History Tobacco Use Types Packs/Day Years [...] on filedocumented in this encounter Care Teams Research Physician Relationship Specialty Start Date End Date Tete Sutherland MD [address] [place] [address] [place] [address] PCP - General 10/12/16 08/27/22 documented as of this encounter
--- OUTSIDE RECORDS SUMMARY | 2024-04-02 18:40 | XMS_ITS | Encounter Summary ---
Author Organization [facility] Address [address] [place] [address] Phone Care Team Providers Care Customer Support Analyst Name Role Phone Tete Sutherland MD Primary Care Provider Encounter Details Date Type Department Care Team (Late st Contact Info) Description 05/26/2014 Documentation [facility] [place] [address] [place] [address] Family Medicine, Physician [address] [place], [place] [phone] Social History Tobacco Use Types Packs/Day Years [...] on filedocumented in this encounter Care Teams Customer Support Analyst Relationship Specialty Start Date End Date Tete Sutherland MD [address] [place] [address] [place] [address] PCP - General 10/12/16 08/27/22 documented as of this encounter
--- OUTSIDE RECORDS SUMMARY | 2024-04-02 18:40 | XMS_ITS | Encounter Summary ---
Author Organization [employer] Address [address] [facility] 7t [place] [address] Care Team Providers Care Store Protection Specialist Name Role Phone Leanne Alcazar SR. DIRECTOR Primary Care Provider [phone] Reason for Visit * Reason Comments Med Refill Encounter Details Date Type Department Care Team ([facility] st Contact Info) Description 03/30/2024 Refill [facility] [address] [place], [place] [phone] Irma Jensen MD [address] [place], [place] [phone] Nausea; Epigastric pain Social History Tobacco Use [...] Description 04/06/2024 10:30 AM EST Office Visit [facility] [address] [place] [address] Leanne Alcazar FNP [address] [place] [address] documented as of this encounter Visit Diagnoses Diagnosis Nausea Nausea alone Epigastric pain Abdominal pain, epigastric documented in this encounter Additional Health Concerns Assessment Noted Time PHQ-9 Depression Total Score: 0 01/27/20 24 3:31 PM EST documented as of this encounter Care Teams Store Protection Specialist Relationship Specialty Start Date End Date Leanne Alcazar FNP [address] [place] [address] PCP - General Family Medicine 12/13/21 documented as of this encounter
--- OUTSIDE RECORDS SUMMARY | 2024-04-02 18:40 | XMS_ITS | Clinical Summary ---
Author Organization [employer] Address [address] [facility] [address] [place] [address] Care Team Providers Care Track Leader Name Role Phone Leanne Alcazar TRAVELING STOREKEEPER Primary Care Provider [phone] Allergies No known active allergies Medications * [...] 22 Active Blood Glucose Monitoring Suppl (FreeStyle [place] Lite) w/Device kit TEST BLOOD SUGAR ONE OR TWO TIMES DAILY DIRECTED 12/14/19 22 Active insulin pen needle 30G x 5 mm miscIndications:T ype 2 diabetes mellitus with hyperglycemia, without long-term current use of insulin (CMS/[facility]) Use as instructed 100 each 12 01/29/20 [...] each 12 01/29/20 23 Active Continuous Glucose Customer Support Advisor (FreeStyle [address] [place]) deviceIndications :Type 2 diabetes mellitus with hyperglycemia, [...] [facility]) Chew 4 tablets (16 g) if needed [...] [facility]) USE DIRECTED CHANGE EVERY 14 DAYS 2 [...] [facility] ) 03/02/2024 Assessment & Plan (03/02/2024 2:17 PM EST): Drink plenty of water Avoid nephrotoxic medication Work on glucose and blood pressure control 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 Vision Exam: 12/2021, fox ?? Dental Care: Discuss at follow up [...] 08/2022 Risk 0 Eye Exam: Referred to [facility] Eye Care; followed by outside retinal [...] morning FBG < 130 ?? Referral to [facility] DM educator Assessment & Plan (11/18/2022 [...] follow up Eye Exam: 12/2021, completed in [place] Lipid panel: 12/2021 WNL, order repeat at [...] Encounters Date Type Department Care Team Description 04/02/2024 Orders Only GENERIC EXTERNAL DATA DEPARTMENT Provider, Generic External Data 03/30/2024 Refill [facility]IC[facility] [address] [place] [address] Irma Jensen MD Nausea; Epigastric pain 03/21/2024 Refill [facility] [address] [place] [address] [facility] Generalized anxiety disorder 03/16/2024 Orders Only GENERIC EXTERNAL DATA DEPARTMENT Provider, Generic External Data 03/13/2024 Orders Only GENERIC EXTERNAL DATA DEPARTMENT Provider, Generic External Data 03/11/2024 Orders Only [facility] External Provider, [facility] 03/02/2024 1:00 PM EST Office Visit [facility] [address] [place] [address] Irma Jensen MD Nausea (Primary Dx); 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 2 diabetes mellitus (CMS/HCC) ([facility]); Epigastric pain; Primary hypertension; Acute kidney injury superimposed on CKD (CMS/HCC) ([facility]/HCC) 03/02/2024 Travel 02/28/2024 Telephone [facility] [address] [place] [address] Chente Corey MA Chart Prep 02/17/2024 Refill [facility] [address] [place] [address] Irma Jensen MD Type 2 diabetes mellitus with hyperglycemia, without long-term current use of insulin ([facility]/HCC) 02/12/2024 Patient Outreach [address] [address] Leanne Alcazar FNP Transition Of Care (Tcm) (HDF- scheduled and SDOH screening completed on 12/02/2023) 01/27/2024 3:15 PM EST Office Visit [address] [address] Leanne Alcazar FNP Routine adult health maintenance (Primary Dx); 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 2 diabetes mellitus ([facility]) ([facility]); Type 2 diabetes mellitus with hyperglycemia, without long-term current use of insulin ([facility]); Primary hypertension 01/27/2024 Travel 01/23/[address] [address] Leanne Alcazar FNP insurance 01/23/[address] [address] Leanne Alcazar FNP No Show 01/16/2024 Patient Outreach [address] [address] Leanne Alcazar FNP Pre-visit Planning (SDOH screening completed on 12/02/2023) 01/07/[address] [address] Noreen See, PharmD Appointment Request 01/07/2024 Refill [facility] [address] [place], [place] [phone] Leanne Alcazar FNP from Last 3 Months [...] MMR 11/10/2013,10/26/1998,07/31/1994 Meningococcal MCV4P [id number] 01/15/2007 Novel [id number], all formulations 01/17/2009 Pfizer Covid-19 Vaccine 12+ [...] 04/06/2024 10:30 AM EST Office Visit [facility] [address] [place] [address] [facility], [facility] [address] [place] [address] Health Maintenance Due Date Last Done Comments Alcohol/Substance Use Screening 2005 Family Planning (PISQ) 2008 Pneumococcal Vaccine: Pediatrics (0 to 5 Years) and At-Risk Patients (6 to 49) Years) (2 of 2 - PCV) 01/17/2010 01/17/2009 Lipid Panel 07/27/2023 07/26/2022, 12/13/2021 COVID-19 Vaccine ( season) 2023 01/28/2023, 02/08/2021, 07/08/2020, Additional history [...] Procedure Name Priority Date/Time Associated Diagnosis Comments GLUCOSE, WHOLE BLOOD Routine 04/02/2024 2:59 PM EST VITAMIN D 25-OH (D2 AND D3) Routine [...] Relevant to Health Maintenance Results * (ABNORMAL) Glucose, Whole Blood (04/02/2024 2:59 PM EST) Glucose, Whole Blood 194(H) 60 - 115 mg/dL [facility] Comment:METER #: [id number] 5Testing performed in the Endocrinology Department [address], [address], [facility]. 04/02/2024 2:59 PM EST 04/02/2024 3:03 PM EST us Generic External Data Provider LAB BLOOD ORDERAB LES Final Result [facility] [address] [place] [phone] * (ABNORMAL) VITAMIN D 25-OH (D2 AND D3) (03/16/2024 4:20 PM EST) Vitamin D, 25-OH, D2 <4 ng/mL [facility] Comment:This test was develo ped and its analytical performancecharacteristics have been determined by [employer] [place], [place]. It hasnot been cleared or approved by the U.S. Food and DrugAdministration. This assay has been validated pursuantto the CLIA regulations and is used for clinicalpurposes.THIS TEST WAS PERFORMED AT:[id number] [place] [address]HBSIZHDSILVA EDGE MD,PHD Vitamin D, 25-OH, D3 17 ng/mL [facility] Comment:This test was develo ped and its analytical performancecharacteristics have been determined by [employer] [place], [place]. It hasnot been cleared or approved by the U.S. Food and DrugAdministration. This assay has been validated pursuantto the CLIA regulations and is used for clinicalpurposes. Vitamin D, 25-OH, Total 17(A) 30 - 100 ng/mL [facility] Comment:Vitamin D, 25-Hydrox y reports concentrations [...] = 30 ng/mL.For additional information, please refer [email or web address](This link is being provided for informational/educational purposes only.) 03/16/2024 4:20 PM EST 03/16/2024 4:20 PM EST us Generic External Data Provider LAB BLOOD ORDERAB LES Final Result [facility] [address] [place] [phone] * Vitamin B12 (Cobalamin) and Folate Panel, Serum (03/16/2024 4:20 PM EST) Vitamin B12 450 200 - 900 pg/mL [facility] Comment:NORMAL 200-900 PG/ML INDETERMINATE 160-199 PG/ML DEFICIENT < 160 PG/ML Folate 12.6 > or = 4.0 ng/mL [facility] Comment:Reference Values:> o r = 4.0 ng/mL< 4.0 ng/mL suggests folate deficiency Methotrexate, aminopterin and folinic acid(leucovorin) are chemotherapeutic agents whose molecularstructures are similar to folate; therefore, the Architectfolate assay cannot be used for patients using these drugs. 03/16/2024 4:20 PM EST 03/16/2024 4:20 PM EST Generic External Data Provider LAB BLOOD ORDERAB LES Final Result Performing Organization Address [facility] Co de Phone Number [facility] [address] [place] [phone] [phone] * Tissue Transglutaminase Antibody, IgA (03/16/2024 4:20 PM EST) Transglutaminase IgA <1.0 U/mL [facility] Comment:Value Interpretation ----- <15.0 Antibody not detected> or = 15.0 Antibody detectedTHIS TEST WAS PERFORMED AT:[employer] [address] [id number] BAEZ MD 03/16/2024 4:20 PM EST 03/16/2024 4:20 PM EST Generic External Data Provider LAB BLOOD ORDERAB LES Final Result Performing Organization Address [facility] Co de Phone Number [facility] [address] [place] [address] [phone] * (ABNORMAL) Hemoglobin A1c (03/16/2024 4:20 PM EST) Hemoglobin A1c 6.8(H) <6.0 % [facility] Comment:Hemoglobin A1C Refer ence Range Adults: 4.8 - 6.0 % Non diabetic: < 6.0 % Goal: < 7.0 %Additional Action Suggested: > 8.0 %Note: Hemoglobin A1c results are invalid for patients with abnormal amounts of HbF. Blood transfusions may impact the HbA1c concentration in the patient sample. Estimated Average Glucose 148 mg/dL [facility] Comment:eAG = Estimated ave rage glucose which is %A1C expressed asaverage glucose, using the formula of the U5Z-SoljhvjLwzijie Glucose study (ADAG), Diabetes Care, Vol.31,#8,Oct. 2007 03/16/2024 4:20 PM EST 03/16/2024 4:20 PM EST us Generic External Data Provider LAB BLOOD ORDERAB LES Final Result [facility] [address] [place] [phone] * (ABNORMAL) Basic Metabolic Panel (03/13/2024 4:26 PM EST) Only the most recent of2 resultswithin the time period is included. Sodium 140 135 - 145 mmol/L [facility] Potassium 4.7 3.3 - 5.1 mmol/L [facility] Chloride 107 96 - 108 mmol/L [facility] Carbon Dioxide 27 22 - 29 mmol/L [facility] Anion Gap 11(L) 12 - 20 [facility] Urea Nitrogen (BUN) 25(H) 9 - 16 mg/dL [facility] Creatinine, Serum 1.55(H) 0.5 - 1.4 mg/dL [facility] Creatinine Clr Calc Pharmacy 81.7 [facility] Comment:eGFR (calculated fro m the MDRD study equation) and eCrCl(calculated from the Cockcroft-Gault equation) are based ondifferent parameters and may not yield comparable results.If eCrCl result is absurd, please check patient'sheight/weight. Estimated Glomerular Filt Rate 53 [facility] Comment:Chronic Kidney Disea se: Estimated GFR < 60 mL/min/1.49s7Orkmop Kidney Disease: Estimated GFR < 15 mL/min/1.73m2 Glucose 156(H) 60 - 115 mg/dL [facility] Calcium 8.6 8.4 - 10.2 mg/dL [facility] 03/13/2024 4:26 PM EST 03/13/2024 4:29 PM EST us Generic External Data Provider LAB BLOOD ORDERAB LES Final Result [facility] [address] [place], [place] [phone] * (ABNORMAL) Urinalysis, Complete, with Reflex to Culture (03/13/2024 1:05 PM EST) Only the most recent of2 resultswithin the time period is included. Color Urine Yellow [facility] Appearance Urine Clear [facility] PH 7.5 5.0 - 9.0 [facility] Glucose Urine UA >=1000(A) Negative mg/dL [facility] Urine Blood Large (3+)(A) Negative [facility] Specific [place] - Urine 1.020 1.005 - 1.025 [facility] Urine Protein 300 (3+)(A) Neg-Trace mg/dL [facility] Urine Ketones Trace Negative mg/dL [facility] Nitrite Urine Negative Negative [facility] Leukocyte Esterase Urine Negative Negative [facility] RBC Urine >20(A) 0 - 2 /HPF [facility] Urine WBC 0-5 0 - 5 /HPF [facility] Urine Squamous Epithelial Cell 0-2 0 - 2 /HPF [facility] Urine Bacteria None Seen None Seen [facility] Hyaline Casts, Urine 0-2 0 - 2 /LPF [facility] 03/13/2024 1:05 PM EST 03/13/2024 1:08 PM EST Narrative [facility] - 03/13/2024 1:54 PM EST [id number], Clean Catch us Generic External Data Provider LAB URINE ORDERAB LES Final Result [facility] [address] [place] [phone] [phone] * (ABNORMAL) Drug Monitoring, Panel 1, Screen, Urine (03/13/2024 1:05 PM EST) Only the most recent of2 resultswithin the time period is included. Opiate Screen Urine Not Detected Not Detect [facility] Comment:Opiate cut-off is 30 0 ng/mL.Positive results are unconfirmed and should not be used fornon-medical purposes. Barbiturates, Urine Not Detected Not Detect [facility] Comment:Barbiturate cut-off is 200 ng/mL.Positive results are unconfirmed and should not be used fornon-medical purposes. Phencyclidine Screen Urine Not Detected Not Detect [facility] Comment:Phencyclidine cut-of f is 25 ng/mL.Positive results are unconfirmed and should not be used fornon-medical purposes. Amphetamine Screen Urine Not Detected Not Detect [facility] Comment:Amphetamine cut-off is 1000 ng/mL.Positive results are unconfirmed and should not be used fornon-medical purposes. Benzodiazepines Screen Urine Not Detected Not Detect [facility] Comment:Benzodiazepine cut-o ff is 200 ng/mL.Positive results are unconfirmed and should not be used fornon-medical purposes. Cocaine Screen Urine Not Detected Not Detect [facility] Comment:Cocaine cut-off is 3 00 ng/mL.Positive results are unconfirmed and should not be used fornon-medical purposes. Cannabinoid Screen Urine POSITIVE(A) Not Detect [facility] Comment:Cannabinoid cut-off is 50 ng/mL.Positive results are unconfirmed and should not be used fornon-medical purposes. Methadone Screen, Urine Not Detected Not Detect ng/mL [facility] Comment:Methadone cut-off is 300 ng/mL.Positive results are unconfirmed and should not be used fornon-medical purposes. FENTANYL URINE Not Detected Not Detect [facility] Comment:Fentanyl cut-off is 1 ng/mL.Positive results are unconfirmed and should not be used fornon-medical purposes. Oxycodone Urine Screen Not Detected Not Detect ng/mL [facility] Comment:Oxycodone cut-off is 100 ng/mL.Positive results are unconfirmed and should not be used fornon-medical purposes. Buprenorphine Screen Not Detected Not Detect ng/mL [facility] Comment:Buprenorphine cut-of f is 5 ng/mL.Positive results are unconfirmed and should not be used fornon-medical purposes. 03/13/2024 1:05 PM EST 03/13/2024 1:08 PM EST us Generic External Data Provider LAB URINE ORDERAB LES Final Result [facility] [address] [place] [phone] * (ABNORMAL) VENOUS BLOOD GAS (03/13/2024 11:53 AM EST) Only the most recent of2 resultswithin the time period is included. VBG pH 7.52(H) 7.32 - 7.43 [facility] Comment:METER #: [id number] additional_comment: Cb snowma VBG PCO2 29 mmHg [facility] Comment:METER #: [id number] additional_comment: Cb snowma VBG PO2 61 mmHg [facility] Comment:METER #: [id number] additional_comment: Cb snowma VBG Base Excess 2.4 mmol/L [facility] Comment:METER #: [id number] additional_comment: Cb snowma VBG HCO3 24 22 - 26 mmol/L [facility] Comment:METER #: [id number] additional_comment: Cb snowma O2 Sat, Arnel 92.0 % [facility] Comment:METER #: [id number] additional_comment: Cb snowma 03/13/2024 11:5 3 AM EST 03/13/2024 12:02 PM EST us Generic External Data Provider LAB BLOOD ORDERAB LES Final Result Performing Organization Address [facility] Co de Phone Number [facility] [address] [place] [phone] * High Sensitivity Troponin I (03/13/2024 11:45 AM EST) Only the most recent of2 resultswithin the time period is included. [facility] TROPONIN I HIGH SENSITIVITY <2.7 <3.5 - 35.0 ng/L [facility] Comment:The Akers high sens itivity Troponin-I results should beused in conjunction with other diagnostic information suchas ECG, clinical observations and information, and patientsymptoms to aid in the diagnosis of SD. 03/13/2024 11:4 5 AM EST 03/13/2024 11:51 AM EST Generic External Data Provider LAB BLOOD ORDERAB LES Final Result Performing Organization Address [facility] Co de Phone Number [facility] [address] [place] [phone] * Ethanol (03/13/2024 11:45 AM EST) [facility] ETHANOL (MG/DL) IN SER/PLAS <10 mg/dL [facility] Comment:Serum/plasma ethanol results are to be used formedical/treatment purposes only. 03/13/2024 11:4 5 AM EST 03/13/2024 11:51 AM EST Generic External Data Provider LAB BLOOD ORDERAB LES Final Result Performing Organization Address [facility] Co de Phone Number [facility] [address] [place] [phone] * SARS-CoV-2 RNA, Influenza A/B, and RSV RNA, Ql NAAT (03/13/2024 11:45 AM EST) Only the most recent of2 resultswithin the time period is included. [facility] Influenza A PCR NEGATIVE Negative [facility] Influenza B PCR NEGATIVE Negative [facility] Resp Syncy Virus RNA Qual PCR NEGATIVE Negative [facility] SARS COV2 PCR NEGATIVE Negative [facility] Comment:All test results mus t [...] use by authorized laboratories.Testing performed on the [employer] GeneXpert utilizingreal-time RT-PCR.All SARS CoV2 and positive influenza A/B results arereported to [facility]. 03/13/2024 11:4 5 AM EST 03/13/2024 11:51 AM EST Generic External Data Provider LAB MICROBIOLOGY - GENERAL ORDERABLES Final Result Performing Organization Address [facility]/ZIP Co de Phone Number [facility] [address] [place] [phone] * (ABNORMAL) Beta-Hydroxybutyrate (03/13/2024 11:45 AM EST) [facility] Beta-Hydroxybu tyrate 0.71(H) 0.02 - 0.27 mmol/L [facility] 03/13/2024 11:4 5 AM EST 03/13/2024 11:51 AM EST Generic External Data Provider LAB BLOOD ORDERAB LES Final Result Performing Organization Address [facility] Co de Phone Number [facility] [address] [place] [phone] * (ABNORMAL) CBC auto differential (03/13/2024 11:45 AM EST) Only the most recent of3 resultswithin the time period is included. Pathologist [facility] White Blood Count 13.7(H) 4.8 - 10.8 X10*3/uL [facility] Red Blood Count 3.82(L) 4.60 - 5.80 X10*6/uL [facility] Hemoglobin 11.7(L) 14.0 - 18.0 g/dl [facility] Hematocrit 33.3(L) 42.0 - 52.0 % [facility] Mean Corpuscular Volume 87.2 80.0 - 98.0 fL [facility] Mean Corpuscular Hemoglobin 30.6 27.0 - 33.0 pg [facility] Mean Corpuscular HGB Conc 35.1 31.0 - 36.0 g/dl [facility] Red Cell Distribution Width 12.6 11.0 - 16.0 % [facility] Platelet Count 296 160 - 400 X10*3/uL [facility] Mean Platelet Volume 10.0 9.4 - 12.4 fL [facility] Neutrophils Percent Auto 84.7(H) 45 - 73 % [facility] Imm Gran Pct Auto 0.4 0.0 - 0.4 % [facility] Lymphocytes Percent Auto 10.1(L) 20 - 40 % [facility] Monocytes Percent Auto 3.9 2 - 11 % [facility] Eosinophils Percent Auto 0.5 0 - 4 % [facility] Basophils Percent Auto 0.4 0 - 2 % [facility] NRBC Pct Auto 0.0 0.0 - 0.2 /100WBC [facility] Neutrophils Absolute Auto 11.6(H) 2.0 - 8.3 x10*3/uL [facility] Imm Gran Abs Auto 0.06(H) 0.00 - 0.03 X10*3/uL [facility] Lymphocytes Absolute Auto 1.4 1.2 - 4.9 X10*3/uL [facility] Monocytes Absolute Auto 0.5 0.1 - 1.2 X10*3/uL [facility] Eosinophils Absolute Auto 0.1 0.0 - 0.4 X10*3/uL [facility] Basophils Absolute Auto 0.1 0.0 - 0.2 X10*3/uL [facility] NRBC Abs Auto 0.000 0.0 - 0.012 X10*3/uL [facility] 03/13/2024 11:4 5 AM EST 03/13/2024 11:51 AM EST Generic External Data Provider LAB BLOOD ORDERAB LES Final Result Performing Organization Address [facility] Co de Phone Number [facility] [address] [place] [phone] * (ABNORMAL) Prothrombin Time-INR (03/13/2024 11:45 AM EST) Prothrombin Time 10.1(L) 10.9 - 12.4 SEC [facility] INTERNATIONAL NORM RATIO 0.9 0.9 - 1.1 [facility] Comment:INTERNATIONAL NORMAL IZED RATIO (INR) REFERENCE [...] ORDERAB LES Final Result Performing Organization Address City/[facility]/ZIP Co de Phone Number [facility] [address] [place] [phone] * C-reactive Protein (03/13/2024 11:45 AM EST) C Reactive Protein 0.28 < or = 0.50 mg/dL [facility] 03/13/2024 11:4 5 AM EST 03/13/2024 11:51 AM EST us Generic External Data Provider LAB BLOOD ORDERAB LES Final Result Performing Organization Address [facility] Co de Phone Number [facility] [address] [place] [phone] * (ABNORMAL) B Type Natriuretic Peptide (BNP) (03/13/2024 11:45 AM EST) B Type Natriuretic Peptide 154(H) <100 pg/mL [facility] Comment:For those patients w ho are being treated with Natrecor(nesiritide, recombinant BNP), BNP testing should beperformed at least two hours post treatment in order toensure that only endogenous levels of BNP are detected. 03/13/2024 11:4 5 AM EST 03/13/2024 11:51 AM EST Generic External Data Provider LAB BLOOD ORDERAB LES Final Result Performing Organization Address [facility] Co de Phone Number [facility] [address] [place] [phone] * Magnesium (03/13/2024 11:45 AM EST) Only the most recent of2 resultswithin the time period is included. Magnesium 2.4 1.6 - 2.6 mg/dL [facility] 03/13/2024 11:4 5 AM EST 03/13/2024 11:51 AM EST Generic External Data Provider LAB BLOOD ORDERAB LES Final Result Performing Organization Address [facility] Co de Phone Number [facility] [address] [place] [phone] * Lipase (03/13/2024 11:45 AM EST) Lipase 32 8 - 78 U/L [facility] 03/13/2024 11:4 5 AM EST 03/13/2024 11:51 AM EST Generic External Data Provider LAB BLOOD ORDERAB LES Final Result Performing Organization Address [facility] de Phone Number [facility] [address] [place] [address] [phone] * Hepatic Function Panel (03/13/2024 11:45 AM EST) Bilirubin, Total 0.7 0.0 - 1.0 mg/dL [facility] Bilirubin, Direct 0.2 0.0 - 0.5 mg/dL [facility] Aspartate Amino Transferase 28 5 - 37 U/L [facility] Comment:Slight Hemolysis.Int erpret result with caution. Alanine Aminotransferase 16 0 - 40 U/L [facility] Total Protein 7.8 6.5 - 8.0 g/dL [facility] Albumin Level 4.1 3.5 - 5.0 g/dL [facility] Alkaline Phosphatase 92 39 - 117 U/L [facility] 03/13/2024 11:4 5 AM EST 03/13/2024 11:51 AM EST Generic External Data Provider LAB BLOOD ORDERAB LES Final Result Performing Organization Address [facility] de Phone Number [facility] [address] [place] [phone] * XR Chest 1 View (03/13/2024 11:39 AM EST) Anatomical Region Laterality Modality Chest Radiographic Robyn ging 03/13/2024 11:3 9 AM EST Narrative 03/13/2024 12:21 PM EST ? [facility] ?[address] ?[place] [address] ?XRay Report ? Signed ? Patient: Boateng,Tristen ?MR#: [id number] ?? 8 ? : 1995 ?Acct:[id number] ? Age/Sex: 28 / M ?ADM Date: 01/10/25 ? Loc: HO.ED ? Attending Dr: ? Ordering Physician: Stefan Sequeira MD ?? Date of Service: 03/13/24 ?? Procedure(s): XR chest 1V ?? Accession Number(s): [id number] ? cc: Stefan Sequeira MD; OttonielLeanne lee TRAVELING STOREKEEPER ? EXAMINATION: ?? XR CHEST ? CLINICAL [...] DD/ 1139 ? TD/TT: 03/13/24 1207 ? Wildlife Protector: ? Procedure Note Franciscoeliseo, Image - 03/13/[address] [address] XRay Report Signed Patient: Mala Boateng#: [id number] 8 : 1995Acct:[id number] Age/Sex: 28 / MADM Date: 03/13/24 Loc: HO.ED Attending Dr: Ordering Physician: Stefan Sequeira MD Date of Service: 03/13/24 Procedure(s): XR chest 1V Accession Number(s): [id number] cc: Stefan Sequeira MD; [place] [facility] EXAMINATION: XR CHEST CLINICAL INFORMATION: sever abdominal pain COMPARISON: 05/20/2022. TECHNIQUE: Frontal view of the chest was obtained. FINDINGS: Cardiac, hilar, and mediastinal contours are normal. The lungs are clear bilaterally. No pneumothorax or effusion. No soft tissue or osseous abnormalities. XR/XR chest 1V IMPRESSION: Normal chest. Electronically signed by: Amarjit Kim MD 03/13/2024 12:18 PM EST RP Dictated By: Amarjit Kim MD Signed By: <Electronically signed by Amarjit Kim MD in OV> 03/13/24 1218 DD/ 1139 TD/TT: 03/13/24 1207 Wildlife Protector: [facility] External Provider IMG XR PROCEDURES Final Result * US RENAL BI (03/11/2024 4:23 PM EST) Anatomical Region Laterality Modality Abdomen Ultrasound 03/11/2024 4:23 PM EST Narrative 03/13/2024 11:35 AM EST ? [facility] ?[address] ?[place] [address] ? Ultrasound Report ? Signed ? Patient: Tristen Boateng ?MR#: [id number] ?? 8 ? : 1995 ?Acct:[id number] ? Age/Sex: 28 / M ?ADM Date: 03/11/24 ? Loc: HO.US ? Attending Dr: Myla Fraire DNP, TRAVELING STOREKEEPER-BC ? Ordering Physician: Myla Fraire DNP TRAVELING STOREKEEPER-BC ?? Date of Service: 03/11/24 ?? Procedure(s): US renal BI ?? Accession Number(s): [id number] ? cc: Myla Fraire DNP, TRAVELING STOREKEEPER-BC; [place] ? EXAMINATION: ??US KIDNEY BILATERAL ? HISTORY: [...] ??Martin Puentes MD ??03/13/2024 11:32 AM EST ?? RP ? Dictated By: ?Martin Puentes MD ? Signed By: ?<Electronically signed by Martin Puentes MD in OV> ?/12/26 1132 ? DD/ 1623 ? TD/TT: 03/11/24 1625 ? Wildlife Protector: ? Procedure Note Donotcarolyninterpreter, Image - 03/13/[address] [address] Ultrasound Report Signed Patient: Mala Boateng#: [id number] 8 : 1995Acct:[id number] Age/Sex: 28 / MADM Date: 03/11/24 Loc: HO. Attending Dr: YUKI Xiong DNP Ordering Physician: Myla Fraire DNP, FNP-BC Date of Service: 03/11/24 Procedure(s): US renal BI Accession Number(s): [id number] cc: Myla Fraire DNP, FNP-BC; [facility] EXAMINATION: US KIDNEY BILATERAL HISTORY: N18.2 - [...] 03/13/24 1132 DD/ 1623 TD/TT: 03/11/24 1625 Wildlife Protector: [facility] External Provider IMG US PROCEDURES Final Result * (ABNORMAL) POCT Glucose (03/02/2024 1:28 PM EST) Only the most recent of2 resultswithin the time period is included. Pathologist [facility] Glucose Blood, POC 281(A) 60 - 200 mg/dL QC Media Lot # [id number] Lot# Expiration Date Blood Capillary blood specimen / Unknown 03/02/2024 1:28 PM EST Irma Aleman MD POINT OF CARE TEST EN TER/EDIT ORDERABLES Final Result * (ABNORMAL) Glucose, Whole Blood (02/25/2024 1:10 PM EST) Only the most recent of2 resultswithin the time period is included. [facility] Glucose, Whole Blood 209(H) 60 - 115 mg/dL [facility] Comment:METER #: [id number] 02/25/2024 1:10 PM EST 02/25/2024 1:14 PM EST Result [facility] Generic External Data Provider LAB BLOOD ORDERAB LES Final Result [facility] [address] [place] [phone] * (ABNORMAL) Comprehensive Metabolic Panel (02/06/2024 10:43 AM EST) [facility] Sodium 134(L) 135 - 145 mmol/L [facility] Potassium 4.2 3.3 - 5.1 mmol/L [facility] Chloride 95(L) 96 - 108 mmol/L [facility] Carbon Dioxide 25 22 - 29 mmol/L [facility] Anion Gap 18 12 - 20 [facility] Urea Nitrogen (BUN) 34(H) 9 - 16 mg/dL [facility] Creatinine, Serum 2.07(H) 0.5 - 1.4 mg/dL [facility] Creatinine Clr Calc Pharmacy 57.6 [facility] Comment:eGFR (calculated fro m the MDRD study equation) and eCrCl(calculated from the Cockcroft-Gault equation) are based ondifferent parameters and may not yield comparable results.If eCrCl result is absurd, please check patient'sheight/weight. Estimated Glomerular Filt Rate 38 [facility] Comment:Chronic Kidney Disea se: Estimated GFR < 60 mL/min/1.32q9Egjitk Kidney Disease: Estimated GFR < 15 mL/min/1.73m2 Glucose 200(H) 60 - 115 mg/dL [facility] Calcium 9.8 8.4 - 10.2 mg/dL [facility] Bilirubin, Total 1.2(H) 0.0 - 1.0 mg/dL [facility] Aspartate Amino Transferase 18 5 - 37 U/L [facility] Alanine Aminotransferase 16 0 - 40 U/L [facility] Total Protein 7.6 6.5 - 8.0 g/dL [facility] Albumin Level 4.1 3.5 - 5.0 g/dL [facility] Alkaline Phosphatase 74 39 - 117 U/L [facility] 02/06/2024 10:4 3 AM EST 02/06/2024 10:46 AM EST us Generic External Data Provider LAB BLOOD ORDERAB LES Final Result [facility] [address] [place] [phone] * Lipid Panel, Standard (07/26/2022 12:08 PM EDT) Cholesterol, Total 169 <200 mg/dL [employer] [facility] HDL Cholesterol 53 > OR = 40 mg/dL [employer] [employer] [facility] Triglycerides 103 <150 mg/dL [facility] [employer] LDL Cholesterol 96 mg/dL (calc) [facility] [employer] Comment: Reference range: <100 Desirable range <100 mg/dL for primary prevention; ?? <70 mg/dL for patients with CHD or diabetic patients with > or = 2 CHD risk factors. LDL-C is now calculated using the Alfredo calculation, which is a validated novel method providing better accuracy than the Friedewald equation in the estimation of LDL-C. Cristo SS et al. ROSIO. 2013;310(19): 3057-7539 (http://education.[employer]/faq/MIK279) Chol/HDLC Ratio 3.2 <5.0 (calc) [facility] [employer] Non-HDL Cholesterol 116 <130 mg/dL (calc) [facility] [employer] [facility] Comment: For patients with diabetes plus 1 major ASCVD risk factor, treating to a non-HDL-C goal of <100 mg/dL (LDL-C of <70 mg/dL) is considered a therapeutic option. Blood Venous blood specimen / Unknown 07/26/2022 12:08 PM EDT 07/26/2022 12:08 PM EDT Narrative [facility] - 07/27/2022 6:10 AM EDT FASTING:YES FASTING: YES [facility] LAB BLOOD ORDERABLES Final Re sult [facility] [address], [place] [address] [employer] [address] [place] [address] * HEPATITIS C AB W/REFL TO HCV [...] a test for HCV RNA (test code 69519) is suggested. ?? For additional information please refer to http://[employer]/faq/DDC16a6 (This link is being provided for informational/ educational purposes only.) ?? 12/13/2021 11:5 1 AM EDT [facility] TRAVELING STOREKEEPER HISTORICAL/NON ORDERABLE LABS Final Result Performing Organization Address City/[facility] Co de Phone Number CONVERTED LEGACY LABS [...] ? For additional information please refer to http://[employer]/faq/PYP312 (This link is being provided for informational/ educational purposes only.) ? The performance of this assay has not been clinically validated in patients less than 2 years old. ?? 12/13/2021 11:5 1 AM EDT [facility] LAB BLOOD ORDERABLES Final Re sult CONVERTED LEGACY LABS from Last 3 Months or Most Recently Relevant to Health Maintenance Insurance [place] C[place] * Guarantor: Tristen Boateng Account Type Relation to Patient Date of Phone Billing Address Personal/Family Self [address] [place] [address] * Guarantor: Tristen Boateng Account Type Relation to Patient Date of Phone Billing Address Personal/Family Self [address] [place] [address] * Guarantor: Tristen Boateng Account Type Relation to Patient Date of Phone Billing Address Personal/Family Self [address] [place] [address] Care Teams Track Leader Relationship Specialty Start Date End Date Leanne Alcazar FNP [address] [place] [phone] PCP - General Family Medicine 12/13/21
--- OUTSIDE RECORDS SUMMARY | 2024-04-02 18:40 | XMS_ITS | Encounter Summary ---
Author Organization [employer] Address [address] [facility] 7t [place] [address] Care Team Providers Care Automotive Project Engineer Name Role Phone Leanne Alcazar [facility] Primary Care Provider [phone] Reason for Visit * Reason Onset Date Comments Nurse Triage 08/15/2023 Encounter Details Date Type Department Care Team ([facility] st Contact Info) Description 08/15/2023 Telephone [facility] MEDICINE [address] [place], [place] [phone] [place] [facility] [address] [place] [address] Nurse Triage Social History Tobacco Use Types [...] blood sugars were WNL. Pt went to [facility] ED 08/14/23 in the evening due to [...] past 3 days, pt was seen at [facility] on 08/14 for nausea/vomiting. Pt has not eaten in 28 hours. The caller accepted this outcome Please contact pt at [phone] documented in this encounter Plan of Treatment Upcoming Encounters Date Type Department Care Team (Late st Contact Info) Description 04/06/2024 10:30 AM EST Office Visit [facility] MEDICINE [address] [place] [address] Leanne Alcazar FNP [address] [place] [address] documented as of this encounter Visit Diagnoses Not on filedocumented in this encounter Additional Health Concerns Assessment Noted Time PHQ-9 Depression Total Score: 24 023 10:42 AM EST documented as of this encounter Care Teams Automotive Project Engineer Relationship Specialty Start Date End Date Leanne Alcazar FNP [address] [place] [phone] PCP - General Family Medicine 12/13/21 documented as of this encounter
--- OUTSIDE RECORDS SUMMARY | 2024-04-02 18:40 | XMS_ITS | Encounter Summary ---
Author Organization [facility] Address [address] [place] [address] Phone Care Team Providers Care Vp Integrity Name Role Phone Tete Sutherland MD Primary Care Provider [phone] Encounter Details Date Type Department Care Team (Late st Contact Info) Description 08/05/2009 Documentation [facility] [address] [place] [address] Family Medicine, Physician [address] [place], [place] [phone] Social History Tobacco Use Types Packs/Day Years [...] on filedocumented in this encounter Care Teams Vp Integrity Relationship Specialty Start Date End Date Tete Sutherland MD [address] [place] [address] SULMA Narayan [address] PCP - General 10/12/16 08/27/22 documented as of this encounter
--- OUTSIDE RECORDS SUMMARY | 2024-04-02 18:40 | XMS_ITS | Encounter Summary ---
Author Organization [facility] Address [address] [place] [phone] Phone Care Team Providers Care Bisque Placer Name Role Phone Tete Sutherland MD Primary Care Provider Encounter Details Date Type Department Care Team (Late st Contact Info) Description 01/29/2012 Documentation [facility] [place] [address] [place] [address] Family Medicine, Physician [address] [place], [place] [phone] Social History Tobacco Use Types Packs/Day Years [...] on filedocumented in this encounter Care Teams Bisque Placer Relationship Specialty Start Date End Date Tete Sutherland MD [address] [place] [address] SULMA Narayan [address] PCP - General 10/12/16 08/27/22 documented as of this encounter
--- OUTSIDE RECORDS SUMMARY | 2024-04-02 18:40 | XMS_ITS | Encounter Summary ---
Author Organization [facility] Address [address] [place] [address] Phone Care Team Providers Care Valve Inspector Name Role Phone Tete Sutherland MD Primary Care Provider Encounter Details Date Type Department Care Team (Late st Contact Info) Description 10/18/2016 Conversion Encounter [facility] [address] [place] [address] Social History Tobacco Use Types Packs/Day Years [...] on filedocumented in this encounter Care Teams Valve Inspector Relationship Specialty Start Date End Date Tete Sutherland MD [address] [place] [address] PCP - General 10/12/16 08/27/22 documented as of this encounter
--- OUTSIDE RECORDS SUMMARY | 2024-04-02 18:40 | XMS_ITS | Encounter Summary ---
Author Organization [facility] Address [address] [place] [address] Phone Care Team Providers Care Welder Fitter Arc Name Role Phone Tete Sutherland MD Primary Care Provider Encounter Details Date Type Department Care Team (Late st Contact Info) Description 07/21/2012 Documentation [facility] [place] [place] [address] [place] [address] Family Medicine, Physician [address] [place], [place] [phone] Social History Tobacco Use Types Packs/Day Years [...] on filedocumented in this encounter Care Teams Welder Fitter Arc Relationship Specialty Start Date End Date Tete Sutherland MD [address] [place] [address] [place] [address] PCP - General 10/12/16 08/27/22 documented as of this encounter
--- OUTSIDE RECORDS SUMMARY | 2024-04-02 18:40 | XMS_ITS | Encounter Summary ---
Author Organization [facility] Address [address] [place] [address] Phone Care Team Providers Care Inspector Grain Mill Products Name Role Phone Tete Sutherland MD Primary Care Provider Encounter Details Date Type Department Care Team (Late st Contact Info) Description 02/04/2014 Documentation [facility] [place] [place] [address] [place] [address] Family Medicine, Physician [address] [place], [place] [phone] Social History Tobacco Use Types Packs/Day Years [...] on filedocumented in this encounter Care Teams Inspector Grain Mill Products Relationship Specialty Start Date End Date Tete Sutherland MD [address] [place] [address] [place] [address] PCP - General 10/12/16 08/27/22 documented as of this encounter
--- OUTSIDE RECORDS SUMMARY | 2024-04-02 18:40 | XMS_ITS | Encounter Summary ---
Author Organization [facility] Address [address] [place] [address] Phone Care Team Providers Care Pick And Shovel Man Name Role Phone Tete Sutherland MD Primary Care Provider Encounter Details Date Type Department Care Team (Late st Contact Info) Description 11/13/[address] [facility] [place] Family Medicine [address] [place] [address] Family Medicine, Physician [address] [place], [place] [phone] Social History Tobacco Use Types Packs/Day Years [...] on filedocumented in this encounter Care Teams Pick And Shovel Man Relationship Specialty Start Date End Date Tete Sutherland MD [address] [place] [address] [place] [address] PCP - General 10/12/16 08/27/22 documented as of this encounter
--- OUTSIDE RECORDS SUMMARY | 2024-04-02 18:40 | XMS_ITS | Encounter Summary ---
Author Organization [employer] Address [address] [facility] [address] [place] [address] Care Team Providers Care Sign Painter Apprentice Name Role Phone Ottoniel [facility] Primary Care Provider [phone] Reason for Visit * Reason Onset Date Comments F 05/21/2022 Encounter Details Date Type Department Care Team ([facility] st Contact Info) Description 05/21/2022 Telephone [facility] MEDICINE [address] [place], [place] [phone] [facility] [address] [place] [address] [facility] Social History Tobacco Use Types Packs/Day Years [...] HDF F/U (no symptoms) Patient hospitalized at [facility]. Patient was admitted on 05/20/2022 and discharged on 05/21/2022. The patient was diagnosed with Virus. Patient advised will forward to [facility] Clinical Coordinators for follow up and appointment scheduling. Please contact Pt at [phone] documented in this encounter Plan of Treatment Upcoming Encounters Date Type Department Care Team (Late st Contact Info) Description 04/06/2024 10:30 AM EST Office Visit [facility] MEDICINE [address] [place] [address] Leanne Alcazar FNP [address] [place] [address] documented as of this encounter Visit Diagnoses Not on filedocumented in this encounter Care Teams Sign Painter Apprentice Relationship Specialty Start Date End Date Leanne Alcazar FNP [address] [place] [address] PCP - General Family Medicine 12/13/21 documented as of this encounter
--- OUTSIDE RECORDS SUMMARY | 2024-04-02 18:40 | XMS_ITS | Clinical Summary ---
Author Organization [facility] Address [address] [place] [address] Phone Care Team Providers Care Patient Services Coordinator Name Role Phone Unavailable Primary Care Provider [...]
--- OUTSIDE RECORDS SUMMARY | 2024-04-02 18:40 | XMS_ITS | Encounter Summary ---
Author Organization [facility] Address [address] [place] [address] Phone Care Team Providers Care Mechanical Service Representative Name Role Phone Tete Sutherland MD Primary Care Provider Encounter Details Date Type Department Care Team (Late st Contact Info) Description 10/21/2012 Documentation [facility] [place] Family Medicine [address] [place] [address] Family Medicine, Physician [address] [place], [place] [phone] Social History Tobacco Use Types Packs/Day Years [...] on filedocumented in this encounter Care Teams Mechanical Service Representative Relationship Specialty Start Date End Date Tete Sutherland MD [address] [place] [address] [place] [address] PCP - General 10/12/16 08/27/22 documented as of this encounter
--- OUTSIDE RECORDS SUMMARY | 2024-04-02 18:41 | XMS_ITS | Encounter Summary ---
Author Organization [employer] Address [address] [place] [address] Care Team Providers Care Curriculum And Assessment Director Name Role Phone Leanne Alcazar COTTON SEED CULLER Primary Care Provider [phone] Encounter Details Date Type Department Care Team ([facility] st Contact Info) Description 03/13/2024 Orders Only [...] 10:30 AM EST Office Visit [facility] [address] [place] [address] [facility], [facility] [address] [place] [address] documented as of this encounter Procedures Procedure [...] EST) Sodium 140 135 - 145 mmol/L [facility] Potassium 4.7 3.3 - 5.1 mmol/L [facility] Chloride 107 96 - 108 mmol/L [facility] Carbon Dioxide 27 22 - 29 mmol/L [facility] Anion Gap 11(L) 12 - 20 [facility] Urea Nitrogen (BUN) 25(H) 9 - 16 mg/dL [facility] Creatinine, Serum 1.55(H) 0.5 - 1.4 mg/dL [facility] Creatinine Clr Calc Pharmacy 81.7 [facility] Comment:eGFR (calculated fro m the MDRD study equation) and eCrCl(calculated from the Cockcroft-Gault equation) are based ondifferent parameters and may not yield comparable results.If eCrCl result is absurd, please check patient'sheight/weight. Estimated Glomerular Filt Rate 53 [facility] Comment:Chronic Kidney Disea se: Estimated GFR < 60 mL/min/1.19b3Avuzki Kidney Disease: Estimated GFR < 15 mL/min/1.73m2 Glucose 156(H) 60 - 115 mg/dL [facility] Calcium 8.6 8.4 - 10.2 mg/dL [facility] 03/13/2024 4:26 PM EST 03/13/2024 4:29 PM EST us Generic External Data Provider LAB BLOOD ORDERAB LES Final Result [facility] [address] [place] [phone] * (ABNORMAL) Drug Monitoring, Panel 1, Screen, Urine (03/13/2024 1:05 PM EST) Opiate Screen Urine Not Detected Not Detect [facility] Comment:Opiate cut-off is 30 0 ng/mL.Positive results are unconfirmed and should not be used fornon-medical purposes. Barbiturates, Urine Not Detected Not Detect [facility] Comment:Barbiturate cut-off is 200 ng/mL.Positive results are unconfirmed and should not be used fornon-medical purposes. Phencyclidine Screen Urine Not Detected Not Detect [facility] Comment:Phencyclidine cut-of f is 25 ng/mL.Positive results are unconfirmed and should not be used fornon-medical purposes. Amphetamine Screen Urine Not Detected Not Detect [facility] Comment:Amphetamine cut-off is 1000 ng/mL.Positive results are unconfirmed and should not be used fornon-medical purposes. Benzodiazepines Screen Urine Not Detected Not Detect [facility] Comment:Benzodiazepine cut-o ff is 200 ng/mL.Positive results are unconfirmed and should not be used fornon-medical purposes. Cocaine Screen Urine Not Detected Not Detect [facility] Comment:Cocaine cut-off is 3 00 ng/mL.Positive results are unconfirmed and should not be used fornon-medical purposes. Cannabinoid Screen Urine POSITIVE(A) Not Detect [facility] Comment:Cannabinoid cut-off is 50 ng/mL.Positive results are unconfirmed and should not be used fornon-medical purposes. Methadone Screen, Urine Not Detected Not Detect ng/mL [facility] Comment:Methadone cut-off is 300 ng/mL.Positive results are unconfirmed and should not be used fornon-medical purposes. FENTANYL URINE Not Detected Not Detect [facility] Comment:Fentanyl cut-off is 1 ng/mL.Positive results are unconfirmed and should not be used fornon-medical purposes. Oxycodone Urine Screen Not Detected Not Detect ng/mL [facility] Comment:Oxycodone cut-off is 100 ng/mL.Positive results are unconfirmed and should not be used fornon-medical purposes. Buprenorphine Screen Not Detected Not Detect ng/mL [facility] Comment:Buprenorphine cut-of f is 5 ng/mL.Positive results are unconfirmed and should not be used fornon-medical purposes. 03/13/2024 1:05 PM EST 03/13/2024 1:08 PM EST us Generic External Data Provider LAB URINE ORDERAB LES Final Result [facility] [address] [place] [phone] * (ABNORMAL) Urinalysis, Complete, with Reflex to Culture (03/13/2024 1:05 PM EST) Color Urine Yellow [facility] Appearance Urine Clear [facility] PH 7.5 5.0 - 9.0 [facility] Glucose Urine UA >=1000(A) Negative mg/dL [facility] Urine Blood Large (3+)(A) Negative [facility] Specific Reese - Urine 1.020 1.005 - 1.025 [facility] Urine Protein 300 (3+)(A) Neg-Trace mg/dL [facility] Urine Ketones Trace Negative mg/dL [facility] Nitrite Urine Negative Negative [facility] Leukocyte Esterase Urine Negative Negative [facility] RBC Urine >20(A) 0 - 2 /HPF [facility] Urine WBC 0-5 0 - 5 /HPF [facility] Urine Squamous Epithelial Cell 0-2 0 - 2 /HPF [facility] Urine Bacteria None Seen None Seen [facility] Hyaline Casts, Urine 0-2 0 - 2 /LPF [facility] 03/13/2024 1:05 PM EST 03/13/2024 1:08 PM EST Narrative [facility] - 03/13/2024 1:54 PM EST [id number], Clean Catch us Generic External Data Provider LAB URINE ORDERAB LES Final Result Performing Organization Address [facility] Co de Phone Number [facility] [address] [place] [address] [phone] * (ABNORMAL) VENOUS BLOOD GAS (03/13/2024 11:53 AM EST) VBG pH 7.52(H) 7.32 - 7.43 [facility] Comment:METER #: [id number] additional_comment: Cb snowma VBG PCO2 29 mmHg [facility] Comment:METER #: [id number] additional_comment: Cb snowma VBG PO2 61 mmHg [facility] Comment:METER #: [id number] additional_comment: Cb snowma VBG Base Excess 2.4 mmol/L [facility] Comment:METER #: [id number] additional_comment: Cb snowma VBG HCO3 24 22 - 26 mmol/L [facility] Comment:METER #: [id number] additional_comment: Cb snowma O2 Sat, Arnel 92.0 % [facility] Comment:METER #: [id number] additional_comment: Cb snowma 03/13/2024 11:5 3 AM EST 03/13/2024 12:02 PM EST us Generic External Data Provider LAB BLOOD ORDERAB LES Final Result Performing Organization Address [facility] Co de Phone Number [facility] [address] [place] [phone] * SARS-CoV-2 RNA, Influenza A/B, and RSV RNA, Ql NAAT (03/13/2024 11:45 AM EST) Influenza A PCR NEGATIVE Negative [facility] Influenza B PCR NEGATIVE Negative [facility] Resp Syncy Virus RNA Qual PCR NEGATIVE Negative [facility] SARS COV2 PCR NEGATIVE Negative [facility] Comment:All test results mus t [...] use by authorized laboratories.Testing performed on the [employer] GeneXpert utilizingreal-time RT-PCR.All SARS CoV2 and positive influenza A/B results arereported to [facility]. 03/13/2024 11:4 5 AM EST 03/13/2024 11:51 AM EST Generic External Data Provider LAB MICROBIOLOGY - GENERAL ORDERABLES Final Result Performing Organization Address [facility]/ZIP Co de Phone Number [facility] [address] [place] [phone] * High Sensitivity Troponin I (03/13/2024 11:45 AM EST) TROPONIN I HIGH SENSITIVITY <2.7 <3.5 - 35.0 ng/L [facility] Comment:The Akers high sens itivity Troponin-I results should beused in conjunction with other diagnostic information suchas ECG, clinical observations and information, and patientsymptoms to aid in the diagnosis of [place]. 03/13/2024 11:4 5 AM EST 03/13/2024 11:51 AM EST Generic External Data Provider LAB BLOOD ORDERAB LES Final Result Performing Organization Address [facility]/ZIP Co de Phone Number [facility] [address] [place] [phone] * Ethanol (03/13/2024 11:45 AM EST) ETHANOL (MG/DL) IN SER/PLAS <10 mg/dL [facility] Comment:Serum/plasma ethanol results are to be used formedical/treatment purposes only. 03/13/2024 11:4 5 AM EST 03/13/2024 11:51 AM EST Generic External Data Provider LAB BLOOD ORDERAB LES Final Result Performing Organization Address [facility] Co de Phone Number [facility] [address] [place] [phone] * (ABNORMAL) Beta-Hydroxybutyrate (03/13/2024 11:45 AM EST) Beta-Hydroxybu tyrate 0.71(H) 0.02 - 0.27 mmol/L [facility] 03/13/2024 11:4 5 AM EST 03/13/2024 11:51 AM EST Generic External Data Provider LAB BLOOD ORDERAB LES Final Result Performing Organization Address [facility] Co de Phone Number [facility] [address] [place] [phone] * Lipase (03/13/2024 11:45 AM EST) Lipase 32 8 - 78 U/L [facility] 03/13/2024 11:4 5 AM EST 03/13/2024 11:51 AM EST Generic External Data Provider LAB BLOOD ORDERAB LES Final Result Performing Organization Address [facility] de Phone Number [facility] [address] [place] [phone] * C-reactive Protein (03/13/2024 11:45 AM EST) C Reactive Protein 0.28 < or = 0.50 mg/dL [facility] 03/13/2024 11:4 5 AM EST 03/13/2024 11:51 AM EST Generic External Data Provider LAB BLOOD ORDERAB LES Final Result Performing Organization Address [facility] de Phone Number [facility] [address] [place] [phone] * Magnesium (03/13/2024 11:45 AM EST) [facility] Magnesium 2.4 1.6 - 2.6 mg/dL [facility] 03/13/2024 11:4 5 AM EST 03/13/2024 11:51 AM EST Generic External Data Provider LAB BLOOD ORDERAB LES Final Result Performing Organization Address [facility] Phone Number [facility] [address] [place] [phone] * (ABNORMAL) Basic Metabolic Panel (03/13/2024 11:45 AM EST) [facility] Sodium 138 135 - 145 mmol/L [facility] Potassium 5.1 3.3 - 5.1 mmol/L [facility] Comment:Slight Hemolysis.Int erpret result with caution. Chloride 106 96 - 108 mmol/L [facility] Carbon Dioxide 22 22 - 29 mmol/L [facility] Anion Gap 15 12 - 20 [facility] Urea Nitrogen (BUN) 30(H) 9 - 16 mg/dL [facility] Creatinine, Serum 1.68(H) 0.5 - 1.4 mg/dL [facility] Creatinine Clr Calc Pharmacy 75.3 [facility] Comment:eGFR (calculated fro m the MDRD study equation) and eCrCl(calculated from the Cockcroft-Gault equation) are based ondifferent parameters and may not yield comparable results.If eCrCl result is absurd, please check patient'sheight/weight. Estimated Glomerular Filt Rate 48 [facility] Comment:Chronic Kidney Disea se: Estimated GFR < 60 mL/min/1.76o2Eexbjb Kidney Disease: Estimated GFR < 15 mL/min/1.73m2 Glucose 259(H) 60 - 115 mg/dL [facility] Calcium 9.7 8.4 - 10.2 mg/dL [facility] 03/13/2024 11:4 5 AM EST 03/13/2024 11:51 AM EST us Generic External Data Provider LAB BLOOD ORDERAB LES Final Result Performing Organization Address [facility] Co de Phone Number [facility] [address] [place], [place] [phone] * Hepatic Function Panel (03/13/2024 11:45 AM EST) Bilirubin, Total 0.7 0.0 - 1.0 mg/dL [facility] Bilirubin, Direct 0.2 0.0 - 0.5 mg/dL [facility] Aspartate Amino Transferase 28 5 - 37 U/L [facility] Comment:Slight Hemolysis.Int erpret result with caution. Alanine Aminotransferase 16 0 - 40 U/L [facility] Total Protein 7.8 6.5 - 8.0 g/dL [facility] Albumin Level 4.1 3.5 - 5.0 g/dL [facility] Alkaline Phosphatase 92 39 - 117 U/L [facility] 03/13/2024 11:4 5 AM EST 03/13/2024 11:51 AM EST us Generic External Data Provider LAB BLOOD ORDERAB LES Final Result Performing Organization Address [facility] Co de Phone Number [facility] [address] [place] [address] [phone] * (ABNORMAL) B Type Natriuretic Peptide (BNP) (03/13/2024 11:45 AM EST) B Type Natriuretic Peptide 154(H) <100 pg/mL [facility] Comment:For those patients w ho are being treated with Natrecor(nesiritide, recombinant BNP), BNP testing should beperformed at least two hours post treatment in order toensure that only endogenous levels of BNP are detected. 03/13/2024 11:4 5 AM EST 03/13/2024 11:51 AM EST Generic External Data Provider LAB BLOOD ORDERAB LES Final Result [facility] [address] [place] [phone] * (ABNORMAL) Prothrombin Time-INR (03/13/2024 11:45 AM EST) Prothrombin Time 10.1(L) 10.9 - 12.4 SEC [facility] INTERNATIONAL NORM RATIO 0.9 0.9 - 1.1 [facility] Comment:INTERNATIONAL NORMAL IZED RATIO (INR) [...] AM EST 03/13/2024 11:51 AM EST us [employer] External Data Provider LAB BLOOD ORDERAB LES Final Result Performing Organization Address [facility]/ZIP Co de Phone Number [facility] [address] [place] [phone] * (ABNORMAL) CBC auto differential (03/13/2024 11:45 AM EST) White Blood Count 13.7(H) 4.8 - 10.8 X10*3/uL [facility] Red Blood Count 3.82(L) 4.60 - 5.80 X10*6/uL [facility] Hemoglobin 11.7(L) 14.0 - 18.0 g/dl [facility] Hematocrit 33.3(L) 42.0 - 52.0 % [facility] Mean Corpuscular Volume 87.2 80.0 - 98.0 fL [facility] Mean Corpuscular Hemoglobin 30.6 27.0 - 33.0 pg [facility] Mean Corpuscular HGB Conc 35.1 31.0 - 36.0 g/dl [facility] Red Cell Distribution Width 12.6 11.0 - 16.0 % [facility] Platelet Count 296 160 - 400 X10*3/uL [facility] Mean Platelet Volume 10.0 9.4 - 12.4 fL [facility] Neutrophils Percent Auto 84.7(H) 45 - 73 % [facility] Imm Gran Pct Auto 0.4 0.0 - 0.4 % [facility] Lymphocytes Percent Auto 10.1(L) 20 - 40 % [facility] Monocytes Percent Auto 3.9 2 - 11 % [facility] Eosinophils Percent Auto 0.5 0 - 4 % [facility] Basophils Percent Auto 0.4 0 - 2 % [facility] NRBC Pct Auto 0.0 0.0 - 0.2 /100WBC [facility] Neutrophils Absolute Auto 11.6(H) 2.0 - 8.3 x10*3/uL [facility] Imm Gran Abs Auto 0.06(H) 0.00 - 0.03 X10*3/uL [facility] Lymphocytes Absolute Auto 1.4 1.2 - 4.9 X10*3/uL [facility] Monocytes Absolute Auto 0.5 0.1 - 1.2 X10*3/uL [facility] Eosinophils Absolute Auto 0.1 0.0 - 0.4 X10*3/uL [facility] Basophils Absolute Auto 0.1 0.0 - 0.2 X10*3/uL [facility] NRBC Abs Auto 0.000 0.0 - 0.012 X10*3/uL [facility] 03/13/2024 11:4 5 AM EST 03/13/2024 11:51 AM EST us Generic External Data Provider LAB BLOOD ORDERAB LES Final Result [facility] [address] [facility] [place] [address] [phone] * XR Chest 1 View (03/13/2024 11:39 AM EST) Anatomical Region Laterality Modality Chest Radiographic Robyn ging 03/13/2024 11:3 9 AM EST Narrative 03/13/2024 12:21 PM EST ? [facility] ?[address] ?Jodi Narayan [address] ?XRay Report ? Signed ? Patient: Boateng,Tristen ?MR#: [id number] ?? 8 ? : 1995 ?Acct:[id number] ? Age/Sex: 28 / M ?ADM Date: 03/13/24 ? Loc: HO.ED ? Attending Dr: ? Ordering Physician: Stefan Sequeira MD ?? Date of Service: 03/13/24 ?? Procedure(s): XR chest 1V ?? Accession Number(s): [id number] ? cc: Stefan Sequeira MD; Leanne Alcazar [...] DD/ 1139 ? TD/TT: 03/13/24 1207 ? Expanding Machine Operator: ? Procedure Note Donotuseinterpreter, Image - 03/13/[address] [address] XRay Report Signed Patient: Mala Boateng#: [id number] 8 : 1995Acct:[id number] Age/Sex: 28 / MADM Date: 03/13/24 Loc: HO.ED Attending Dr: Ordering Physician: Stefan Sequeira MD Date of Service: 03/13/24 Procedure(s): XR chest 1V Accession Number(s): [id number] cc: Stefan Sequeira MD; Leanne Alcazar EXAMINATION: [...] 03/13/24 1218 DD/ 1139 TD/TT: 03/13/24 1207 Expanding Machine Operator: [facility] External Provider IMG XR PROCEDURES Final Result documented in this encounter Visit Diagnoses Not on filedocumented in this encounter Additional Health Concerns Assessment Noted Time PHQ-9 Depression Total Score: 0 01/27/20 24 3:31 PM EST documented as of this encounter Care Teams Curriculum And Assessment Director Relationship Specialty Start Date End Date Leanne Alcazar FNP [address] [place] [address] PCP - General Family Medicine 12/13/21 documented as of this encounter
--- OUTSIDE RECORDS SUMMARY | 2024-04-02 18:41 | XMS_ITS | Encounter Summary ---
Author Organization [employer] Address [address] [place] [address] Care Team Providers Care Adult Services Librarian Name Role Phone Leanne Alcazar EDUCATIONAL DIRECTOR Primary Care Provider [phone] Encounter Details Date Type Department Care Team ([facility] st Contact Info) Description 03/16/2024 Orders [...] Description 04/06/2024 10:30 AM EST Office Visit [facility] [address] [place] [address] [facility] [address] [place], [place] [phone] documented as of this encounter Procedures Procedure [...] EST) Vitamin D, 25-OH, D2 <4 ng/mL [facility] Comment:This test was sandy noel and its analytical performancecharacteristics have been determined by [employer] [place], [place]. It hasnot been cleared or approved by the U.S. Food and DrugAdministration. This assay has been validated pursuantto the CLIA regulations and is used for clinicalpurposes.THIS TEST WAS PERFORMED AT:[employer] [place] [address]RHLHOYNSILVA EDGE MD,PHD Vitamin D, 25-OH, D3 17 ng/mL [facility] Comment:This test was sandy noel and its analytical performancecharacteristics have been determined by [employer] [place], [place]. It hasnot been cleared or approved by the U.S. Food and DrugAdministration. This assay has been validated pursuantto the CLIA regulations and is used for clinicalpurposes. Vitamin D, 25-OH, Total 17(A) 30 - 100 ng/mL [facility] Comment:Vitamin D, 25-Hydrox y reports [...] = 30 ng/mL.For additional information, please refer tohttp://education.[employer]/faq/BQE359(This link is being provided for informational/educational purposes only.) 03/16/2024 4:20 PM EST 03/16/2024 4:20 PM EST us Generic External Data Provider LAB BLOOD ORDERAB LES Final Result [facility] [address] [place] [phone] * Tissue Transglutaminase Antibody, IgA (03/16/2024 4:20 PM EST) Transglutaminase IgA <1.0 U/mL [facility] Comment:Value Interpretation ----- <15.0 Antibody not detected> or = 15.0 Antibody detectedTHIS TEST WAS PERFORMED AT:[employer] [place] [id number] BAEZ MD 03/16/2024 4:20 PM EST 03/16/2024 4:20 PM EST Generic External Data Provider LAB BLOOD ORDERAB LES Final Result Performing Organization Address [facility] de Phone Number [facility] [address] [place] [phone] * Vitamin B12 (Cobalamin) and Folate Panel, Serum (03/16/2024 4:20 PM EST) Vitamin B12 450 200 - 900 pg/mL [facility] Comment:NORMAL 200-900 PG/ML INDETERMINATE 160-199 PG/ML DEFICIENT < 160 PG/ML Folate 12.6 > or = 4.0 ng/mL [facility] Comment:Reference Values:> o r = 4.0 ng/mL< 4.0 ng/mL suggests folate deficiency Methotrexate, aminopterin and folinic acid(leucovorin) are chemotherapeutic agents whose molecularstructures are similar to folate; therefore, the Architectfolate assay cannot be used for patients using these drugs. 03/16/2024 4:20 PM EST 03/16/2024 4:20 PM EST [employer] External Data Provider LAB BLOOD ORDERAB LES Final Result Performing Organization Address [facility] Phone Number [facility] [address] [place] [phone] * (ABNORMAL) Hemoglobin A1c (03/16/2024 4:20 PM EST) Hemoglobin A1c 6.8(H) <6.0 % [facility] Comment:Hemoglobin A1C Refer ence Range Adults: 4.8 - 6.0 % Non diabetic: < 6.0 % Goal: < 7.0 %Additional Action Suggested: > 8.0 %Note: Hemoglobin A1c results are invalid for patients with abnormal amounts of HbF. Blood transfusions may impact the HbA1c concentration in the patient sample. Estimated Average Glucose 148 mg/dL [facility] Comment:eAG = Estimated ave rage glucose which is %A1C expressed asaverage glucose, using the formula of the N6I-[id number] Glucose study (ADAG), Diabetes Care, Vol.31,#8,Oct. 2007 03/16/2024 4:20 PM EST 03/16/2024 4:20 PM EST us Generic External Data Provider LAB BLOOD ORDERAB LES Final Result [facility] [address] [place] [phone] documented in this encounter Visit Diagnoses Not on filedocumented in this encounter Additional Health Concerns Assessment Noted Time PHQ-9 Depression Total Score: 0 01/27/20 24 3:31 PM EST documented as of this encounter Care Teams Adult Services Librarian Relationship Specialty Start Date End Date Leanne Alcazar FNP [address] [place] [phone] PCP - General Family Medicine 12/13/21 documented as of this encounter
--- OUTSIDE RECORDS SUMMARY | 2024-04-02 18:41 | XMS_ITS | Encounter Summary ---
Demographics Address [facility] [address] [place] [address] Mobile Phone Work Phone Preferred Language en Marital Status Unknown Episcopal Affiliation Unknown Race Other Race Ethnic Group Unknown Author Organization [employer] Address [address] [place] [address] Care Team Providers Care Junk Removal Specialist Name Role Phone Leanne Alcazar TOBACCO PACKER Primary Care Provider [phone] Encounter Details Date Type Department Care Team (Late st Contact Info) Description 03/11/2024 Orders Only [facility] External Provider, [facility] Social History Tobacco Use Types Packs/Day Years [...] Description 04/06/2024 10:30 AM EST Office Visit [facility] [address] [facility] [place] [address] [place] FNP [address] [facility] [place] [address] documented as of this encounter Procedures Procedure Name Priority Date/Time Associated Diagnosis Comments US RENAL BI Routine 03/11/2024 4:23 PM EST documented in this encounter Results * US RENAL BI (03/11/2024 4:23 PM EST) Anatomical Region Laterality Modality Abdomen Ultrasound 03/11/2024 4:23 PM EST Narrative 03/13/2024 11:35 AM EST ? [facility] ?[address] ?[place] [address] ? Ultrasound Report ? Signed ? Patient: Tristen Boateng ?MR#: [id number] ?? 8 ? : 1995 ?Acct:[id number] ? Age/Sex: 28 / M ?ADM Date: 03/11/24 ? Loc: HO.US ? Attending Dr: Myla Fraire DNP, TOBACCO PACKER-BC ? Ordering Physician: Myla Fraire DNP, TOBACCO PACKER-BC ?? Date of Service: 03/11/24 ?? Procedure(s): US renal BI ?? Accession Number(s): [id number] ? cc: Myla Fraire KORTNEY, CARL-TOMI; Leanne [...] DD/ 1623 ? TD/TT: 03/11/24 1625 ? Bathing Suit Maker: ? Procedure Note Lotus Bond - 03/13/2024 [place] [address] Ultrasound Report Signed Patient: Mala Boateng#: [id number] 8 : 1995Acct:[id number] Age/Sex: 28 / MADM Date: 03/11/24 Loc: HO.US Attending Dr: YUKI Xiong DNP Ordering Physician: Myla Fraire DNP, FNP-BC Date of Service: 03/11/24 Procedure(s): US renal BI Accession Number(s): [id number] cc: Myla Fraire DNP, FNP-BC; Leanne Alcazar [...] 03/13/24 1132 DD/ 1623 TD/TT: 03/11/24 1625 Bathing Suit Maker: [facility] External Provider IMG US PROCEDURES Final Result documented in this encounter Visit Diagnoses Not on filedocumented in this encounter Additional Health Concerns Assessment Noted Time PHQ-9 Depression Total Score: 0 01/27/20 24 3:31 PM EST documented as of this encounter Care Teams Junk Removal Specialist Relationship Specialty Start Date End Date Leanne Alcazar FNP [address] [place] [address] PCP - General Family Medicine 12/13/21 documented as of this encounter
== END 2024-04-02 15:26 | disposition home or self-care (01) ==
PROVIDERS: PCP Registered Nurse; Visit Provider Internal Medicine
DX: E11.65 Type 2 diabetes mellitus with hyperglycemia (principal); Z79.4 Long term (current) use of insulin

== ENCOUNTER → 2024-04-02 14:45 | Outpatient (BNVA) | payer MEDICAID, SELFPAY | PROVIDERS: PCP Registered Nurse; Visit Provider Internal Medicine | DX: E11.65 Type 2 diabetes mellitus with hyperglycemia (principal); E11.21 Type 2 diabetes mellitus with diabetic nephropathy; Z79.4 Long term (current) use of insulin; Z79.899 Other long term (current) drug therapy | CPT/HCPCS: 82947; 99212 ==

== ENCOUNTER 2024-06-05 15:10 | Emergency (ER) | payer MEDICAID, SELFPAY ==
[2024-06-05 15:29] VITALS: BP 143/92; PULSE 93; O2SAT 100
[2024-06-05 15:51] VITALS: BP 128/77; PULSE 85; RESP 18; TEMP 37.1; O2SAT 100; BMI 31.0
--- NOTE | 2024-06-05 17:04 | ED.GENADULT ---
HPI - General Adult General Chief complaint: Nausea/Vomiting/Diarrhea Stated complaint: vomiting, throat/abd pain Time Seen by Provider: 06/05/24 21:29 Source: patient, RN notes reviewed and old records reviewed Mode of arrival: EMS Limitations: no limitations History of Present Illness ED Provider: Ronda HPI narrative: 29-year-old male with past medical history significant for type 2 diabetes, history of cannabis hyperemesis syndrome, diabetic nephropathy, left eye blindness, chronic kidney disease, hypertension presents for evaluation of nausea and vomiting. Patient reports 3 days of vomiting. He currently denies any abdominal pain. Denies any black or bloody stool. He reports that he last smoked marijuana about a week ago he reports a remote history of appendectomy as a child but no other abdominal surgeries Related Data Home Medications ?Medication ?Instructions ?Recorded ?Confirmed empagliflozin 10 mg tablet 10 mg PO DAILY 10/29/23 03/31/24 (Jardiance) carvedilol 25 mg tablet 25 mg PO BID 02/06/24 03/31/24 amlodipine 10 mg tablet 10 mg PO DAILY 02/25/24 03/31/24 escitalopram oxalate 10 mg tablet 10 mg PO DAILY 02/25/24 03/31/24 pantoprazole 40 mg tablet,delayed 40 mg PO QAM 03/16/24 03/31/24 release glucose 4 gram chewable tablet 16 g PO diabetes mellitus 04/02/24 Previous Rx's ?Medication ?Instructions ?Recorded losartan 50 mg tablet 50 mg PO DAILY #30 tabs 03/03/24 famotidine 20 mg tablet (Pepcid) 20 mg PO BEDTIME #30 tabs 03/16/24 atorvastatin 40 mg tablet 40 mg PO BEDTIME #30 tabs 03/18/24 insulin glargine 100 unit/mL (3 20 unit (0.2 mL) subcut BEDTIME 04/02/24 mL) subcutaneous pen (Lantus #15 mL Solostar U-100 Insulin) Allergies Allergy/AdvReac Type Severity Reaction Status Date / Time No Known Allergies Allergy Verified 06/05/24 15:54 [No Known Allergies*] Review of Systems Constitutional: Constitutional: Denies body ache(s), Denies chills, Denies fever(s) and Denies headache(s) Eyes: Eyes: Denies blurry vision and Denies floaters ENT: Denies vertigo, Denies dizziness and Denies headache(s) Cardiovascular: Cardiovascular: Denies chest pain Respiratory: Respiratory: Denies cough Gastrointestinal: Gastrointestinal: Denies abdominal pain, Denies hematochezia, Denies diarrhea, Denies loose stools, Reports nausea and Reports vomiting Musculoskeletal: Musculoskeletal: Denies back pain Integumentary/Breasts: Skin/Breast: Denies rash Neurologic: Denies vertigo, Denies dizziness and Denies headache(s) Psychiatric: Psychiatric: Reports anxiety and Denies suicidal ideation [facility] Past Medical History Medical History (Updated 06/06/24 @ 01:53 by Guillaume Bond) Cannabis hyperemesis syndrome concurrent with and due to cannabis dependence Cannabis use disorder Hypertension Anxiety Chest pain ADHD Generalized anxiety disorder Type 2 diabetes mellitus Hypertension Surgical History [place] teeth extracted History of appendectomy History of eye surgery (~06/2022) Family History Family History Father HTN (hypertension) Mother Arthritis Sister Lupus (systemic lupus erythematosus) Social History Social History Household Members: Family Housing: Apartment Do you presently have visiting nurse or other home services: No Alcohol intake: former Patient Tobacco Use Status: Never used Tobacco e-Cigarette/Vaping Use: Never Used Second Hand Smoke Exposure: No (N/A) Substance Use Type: Marijuana Advance Directives: Yes Advance Directives on File: Yes Advance Directives Date on File: 11/01/23 service: No Physical Exam ED Vital Signs: Vital Signs - 24 hr 06/05/24 15:51 06/05/24 20:40 06/05/24 23:33 Temperature 98.7 F 97.7 F 98.6 F Pulse Rate 85 101 H 95 Respiratory Rate 18 20 20 Blood Pressure 128/77 142/67 H 160/84 H Pulse Oximetry 100 99 97 Oxygen Delivery Method Room Air Room Air Room Air BMI result Body Mass Index 31.0 Const General: healthy appearing, comfortable, no acute distress, alert and awake Nutritional Appearance: well nourished Orientation/consciousness: patient oriented x3 HENMT Head: Yes normocephalic and Yes atraumatic Eyes Eyelids: Yes eyelids normal Conjunctivae: conjunctivae normal Sclerae: sclerae normal Corneas: corneas normal Pupils: Equal, round and reactive pupils present EOM: EOMs intact bilaterally Neck Neck: Yes full ROM Resp Effort & Inspection: normal respiratory effort, able to speak in complete sentences and not labored GI Inspection: No distended Palpation (GI): Soft to palpation, not firm, nontender, no guarding and not rigid Skin General skin exam: elasticity normal Neuro General: patient oriented x3 Cranial nerves: Yes Equal, round and reactive pupils present and Yes Bilaterally intact EOM present Cognition (Neuro): normal cognition Extrem Other: Moving all extremities well without any obvious deformities Course Course Course Narrative: RME performed by Laisha Vela PA-C. Patient is a 29 year old assigned male at presenting to the emergency department with nausea, vomiting, and abdominal pain. Detailed physical exam and review of systems are deferred to the breeder hen service technician. Labs and swabs ordered. Patient placed back in the waiting room pending room availability and results. Reevaluation(s) Reevaluation #1: patient is resting comfortably, he has had no further nausea and vomiting. Plan to repeat BNP and p.o. challenge the pat Time: 00:19 Reevaluation #2: patient's repeat creatinine has improved to 1.83 which is just above his baseline. The patient is able to tolerate p.o. fluids, he is stable for discharge at this time Time: 01:52 Medications Administered Discontinued Medications Generic Name Dose Route Start Last Admin Trade Name Freq PRN Reason Stop Dose Admin Haloperidol Lactate 2.5 mg 06/05/24 21:47 06/05/24 22:11 Haloperidol Lactate 5 Mg/Ml Vial IVPUSH 06/05/24 21:48 2.5 mg STAT STA Administration Sodium Chloride 1,000 mls @ 999 mls/hr 06/05/24 22:00 06/06/24 00:17 Ns IV 06/06/24 00:00 Infused .Q1H1M PRIYANKA Infusion Lorazepam 1 mg 06/05/24 22:02 06/05/24 22:12 Lorazepam 2 Mg/Ml Vial IVPUSH 06/05/24 22:03 1 mg STAT STA Administration Medical Decision Making Medical Decision Making MDM Narrative: 29-year-old male presents for evaluation of nausea and vomiting. He was frequent ED visits for similar. It is likely that he has diabetic gastroparesis versus cannabis hyperemesis syndrome. He currently denies abdominal pain, he has no abdominal tenderness on exam. Less likely infectious pathology. He was continuing to have bowel movements and passing gas. Less likely obstruction. he has no leukocytosis. the patient does have a history of chronic kidney disease with a baseline creatinine of around 1.5. His creatinine today is 2.04 which is likely due to his vomiting and decreased oral intake. We will treat with IV fluids and attempted to stop his nausea and vomiting. I do not see any indication for emergent imaging at this time. Differential Diagnosis Differential Diagnoses: The differential diagnosis associated with the presentation includes Nausea and vomiting KARUNA Dehydration Diabetic gastroparesis Cannabis hyperemesis syndrome Admission/Observation Consideration of admission/observation: Escalation of care including admission/observation considered Lab Data MDM Lab Attestation statement: I reviewed the patient's lab results. as above 06/05/24 17:25 06/06/24 00:39 Labs: Lab Results 06/05/24 06/06/24 Range/Units 17:25 00:39 WBC 7.5 (4.8-10.8) X10*3/uL RBC 3.66 L (4.60-5.80) X10*6/uL Hgb 10.9 L (14.0-18.0) g/dl Hct 30.4 L (42.0-52.0) % MCV 83.1 (80.0-98.0) fL MCH 29.8 (27.0-33.0) pg MCHC 35.9 (31.0-36.0) g/dl RDW 11.9 (11.0-16.0) % Plt Count 208 (160-400) X10*3/uL MPV 9.6 (9.4-12.4) fL Immature Gran % (Auto) 0.4 (0.0-0.4) % Neut % (Auto) 76.9 H (45-73) % Lymph % (Auto) 13.3 L (20-40) % [place] % (Auto) 9.3 (2-11) % Eos % (Auto) 0.0 (0-4) % Baso % (Auto) 0.1 (0-2) % Lymph # (Auto) 1.0 L (1.2-4.9) X10*3/uL [place] # (Auto) 0.7 (0.1-1.2) X10*3/uL Eos # (Auto) 0.0 (0.0-0.4) X10*3/uL Baso # (Auto) 0.0 (0.0-0.2) X10*3/uL Abs Immat Gran (auto) 0.03 (0.00-0.03) X10*3/uL Absolute Neuts (auto) 5.8 (2.0-8.3) x10*3/uL Absolute Nucleated RBC 0.000 (0.0-0.012) X10*3/uL Nucleated RBC % (auto) 0.0 (0.0-0.2) /100WBC Sodium 136 139 (135-145) mmol/L Potassium 4.0 3.5 (3.3-5.1) mmol/L Chloride 100 104 (96-108) mmol/L Carbon Dioxide 25 23 (22-29) mmol/L Anion Gap 15 16 (12-20) BUN 38 H 36 H (9-16) mg/dL Creatinine 2.04 H 1.83 H (0.5-1.4) mg/dL Estim Creat Clear Calc 59.7 66.6 Estimated GFR 38 43 Random Glucose 209 H 134 H (60-115) mg/dL Calcium 9.1 8.3 L D (8.4-10.2) mg/dL Magnesium 2.4 (1.6-2.6) mg/dL Total Bilirubin 1.4 H (0.0-1.0) mg/dL AST 22 (5-37) U/L ALT 32 (0-40) U/L Alkaline Phosphatase 81 (39-117) U/L Total Protein 6.5 (6.5-8.0) g/dL Albumin 3.7 (3.5-5.0) g/dL Influenza Type A (PCR) NEGATIVE (Negative) Influenza Type B (PCR) NEGATIVE (Negative) RSV RNA Qual (PCR) NEGATIVE (Negative) SARS-CoV-2 RNA (RT-PCR) NEGATIVE (Negative) Discharge Plan Discharge Clinical Impression: Vomiting, KARUNA (acute kidney injury) Patient Disposition: Home, Self-Care Instructions: Acute Kidney Injury (DC), Acute Nausea and Vomiting (ED) Additional Instructions: your blood work showed slightly worsening chronic kidney disease which improved with fluids. Your symptoms were again likely related to cannabis abuse follow-up with your primary doctor, return for new or worsening symptoms Prescriptions: No Action atorvastatin 40 mg tablet 40 mg PO BEDTIME Qty: 30 3RF carvedilol 25 mg tablet 25 mg PO BID Jardiance 10 mg tablet 10 mg PO DAILY amlodipine 10 mg tablet 10 mg PO DAILY escitalopram oxalate 10 mg tablet 10 mg PO DAILY losartan 50 mg tablet 50 mg PO DAILY Qty: 30 5RF pantoprazole 40 mg tablet,delayed release (DR/EC) 40 mg PO QAM famotidine [Pepcid] 20 mg tablet 20 mg PO BEDTIME Qty: 30 3RF glucose 4 gram tablet,chewable 16 g PO insulin glargine [Lantus Solostar U-100 Insulin] 100 unit/mL (3 mL) insulin pen 20 unit subcut BEDTIME Qty: 15 3RF Print Language: Hungarian
[2024-06-05 17:30] LABS: MANUAL DIFF FLAG NO
[2024-06-05 17:37] LABS: Basophils Percent Auto 0.1 % (0-2); Hematocrit 30.4 % (42.0-52.0); Hemoglobin 10.9 g/dl (14.0-18.0); Imm Gran Abs Auto 0.03 X10*3/uL (0.00-0.03); Imm Gran Pct Auto 0.4 % (0.0-0.4); Lymphocytes Percent Auto 13.3 % (20-40); Mean Corpuscular HGB Conc 35.9 g/dl (31.0-36.0); Mean Corpuscular Hemoglobin 29.8 pg (27.0-33.0); Mean Corpuscular Volume 83.1 fL (80.0-98.0); Mean Platelet Volume 9.6 fL (9.4-12.4); Monocytes Absolute Auto 0.7 X10*3/uL (0.1-1.2); Monocytes Percent Auto 9.3 % (2-11); Neutrophils Absolute Auto 5.8 x10*3/uL (2.0-8.3); Neutrophils Percent Auto 76.9 % (45-73); Platelet Count 208 X10*3/uL (160-400); Red Blood Count 3.66 X10*6/uL (4.60-5.80); Red Cell Distribution Width 11.9 % (11.0-16.0); White Blood Count 7.5 X10*3/uL (4.8-10.8)
[2024-06-05 17:45] LABS: Alanine Aminotransferase 32 U/L (0-40); Albumin Level 3.7 g/dL (3.5-5.0); Alkaline Phosphatase 81 U/L (39-117); Anion Gap 15 (12-20); Aspartate Amino Transferase 22 U/L (5-37); Bilirubin Total 1.4 mg/dL (0.0-1.0); Blood Urea Nitrogen 38 mg/dL (9-16); Calcium 9.1 mg/dL (8.4-10.2); Carbon Dioxide 25 mmol/L (22-29); Chloride 100 mmol/L (96-108); Creatinine Clr Calc Pharmacy 59.7; Estimated Glomerular Filt Rate 38; Glucose Random 209 mg/dL (60-115); Magnesium 2.4 mg/dL (1.6-2.6); Sodium 136 mmol/L (135-145); Total Protein 6.5 g/dL (6.5-8.0)
[2024-06-05 18:07] LABS: Influenza A PCR NEGATIVE (Negative); Influenza B PCR NEGATIVE (Negative); Resp Syncy Virus RNA Qual PCR NEGATIVE (Negative); SARS COV2 PCR INHOUSE NEGATIVE (Negative)
[2024-06-05 20:40] VITALS: BP 142/67; PULSE 101; RESP 20; TEMP 36.5; O2SAT 99
--- OUTSIDE RECORDS SUMMARY | 2024-06-05 20:41 | XMS_ITS | Encounter Summary ---
Author Organization [facility] Address [address] [place] [phone] Phone Care Team Providers Care Buffet Attendant Name Role Phone Tete Sutherland MD Primary Care Provider Encounter Details Date Type Department Care Team (Late st Contact Info) Description 11/13/2012 Documentation [facility] Family Medicine [address] [place] [address] Family Medicine, Physician [address] [place], [place] [phone] Social History Tobacco Use Types Packs/Day Years [...] on filedocumented in this encounter Care Teams Buffet Attendant Relationship Specialty Start Date End Date Tete Sutherland MD [address] [place] [address] [place] [address] PCP - General 10/12/16 08/27/22 documented as of this encounter
--- OUTSIDE RECORDS SUMMARY | 2024-06-05 20:41 | XMS_ITS | Clinical Summary ---
Author Organization [facility] Address [address] [place] [address] Phone Care Team Providers Care Stove Fitter Name Role Phone Unavailable Primary Care Provider Unavailabl e Immunizations Immunization Administration Dates Next Due DTP 01/21/1995, 4,1993,09/21 [...]
--- OUTSIDE RECORDS SUMMARY | 2024-06-05 20:41 | XMS_ITS | Encounter Summary ---
Author Organization [facility] Address [address] [place] [address] Phone Care Team Providers Care Boot And Shoe Laborer Name Role Phone Tete Sutherland MD Primary Care Provider Encounter Details Date Type Department Care Team (Late st Contact Info) Description 04/08/2014 Documentation [facility] [address] [place] [address] Family Medicine, Physician [address] [place], [place] [phone] Social History Tobacco Use Types Packs/Day Years [...] on filedocumented in this encounter Care Teams Boot And Shoe Laborer Relationship Specialty Start Date End Date Tete Sutherland MD [address] [place] [address] [place] [address] PCP - General 10/12/16 08/27/22 documented as of this encounter
--- OUTSIDE RECORDS SUMMARY | 2024-06-05 20:41 | XMS_ITS | Encounter Summary ---
Author Organization [facility] Address [address] [place] [address] Phone Care Team Providers Care Autoglazier Name Role Phone Tete Sutherland MD Primary Care Provider Encounter Details Date Type Department Care Team (Late st Contact Info) Description 10/21/2012 Documentation [facility] [place] [address] [place] [address] Family Medicine, Physician [address] [place], [place] [phone] Social History Tobacco Use Types Packs/Day Years [...] on filedocumented in this encounter Care Teams Autoglazier Relationship Specialty Start Date End Date Tete Sutherland MD [address] [place] [address] [place] [address] PCP - General 10/12/16 08/27/22 documented as of this encounter
--- OUTSIDE RECORDS SUMMARY | 2024-06-05 20:41 | XMS_ITS | Encounter Summary ---
Author Organization [facility] Address [address] [place] [address] Phone Care Team Providers Care Milling Planer Operator Name Role Phone Tete Sutherland MD Primary Care Provider [phone] Encounter Details Date Type Department Care Team (Late st Contact Info) Description 10/18/2016 Conversion Encounter [facility] [address] [place] [address] Social History Tobacco Use Types Packs/Day Years [...] on filedocumented in this encounter Care Teams Milling Planer Operator Relationship Specialty Start Date End Date Tete Sutherland MD [address] [place] [address] PCP - General 10/12/16 08/27/22 documented as of this encounter
--- OUTSIDE RECORDS SUMMARY | 2024-06-05 20:41 | XMS_ITS | Encounter Summary ---
Author Organization [facility] Address [address] [place] [address] Phone Care Team Providers Care Welfare Worker Name Role Phone Tete Sutherland MD Primary Care Provider Encounter Details Date Type Department Care Team (Late st Contact Info) Description 02/04/2014 Documentation [facility] [place] Family Medicine [address] [place] [address] Family Medicine, Physician [address] [place], [place] [phone] Social History Tobacco Use Types Packs/Day Years [...] on filedocumented in this encounter Care Teams Welfare Worker Relationship Specialty Start Date End Date Tete Sutherland MD [address] [place] [address] [place] [address] PCP - General 10/12/16 08/27/22 documented as of this encounter
--- OUTSIDE RECORDS SUMMARY | 2024-06-05 20:41 | XMS_ITS | Clinical Summary ---
Author Organization [employer] Address [address] [place] [address] Care Team Providers Care Greens Keeper Name Role Phone Leanne Alcazar PROCESS IMPROVEMENT MANAGER Primary Care Provider [phone] Allergies No known active allergies Medications * This document contains information received from the source organization and may not represent a complete record from that organization. FREESTYLE LITE test strip USE DIRECTED TO TEST BLOOD SUGAR ONE OR TWO TIMES DAILY 2 Active glucose blood (FREESTYLE LITE) test strip USE 1 Each by DIRECTED route every day 2 Active Blood Pressure Monitoring (Omron 3 Series BP Monitor) device USE TO CHECK BLOOD PRESSURE ONE OR TWO TIMES DAILY 2 Active Blood Glucose Monitoring Suppl (FreeStyle Rachel Lite) w/Device kit TEST BLOOD SUGAR ONE OR TWO TIMES DAILY DIRECTED 2 Active TRUEplus Lancets 33G miscIndications:T ype 2 diabetes mellitus with hyperglycemia, without long-term current use of insulin ([facility]) TEST BLOOD SUGAR 4 times daily 120 each 1 3 Active glucose blood test stripIndications: Type 2 diabetes mellitus with hyperglycemia, without long-term current use of insulin ([facility]) Use as directed to check blood sugar four times daily 100 each 12 3 Active Continuous Glucose Revenue Investigator (FreeStyle Ave 2 [place]) deviceIndications :Type 2 diabetes mellitus with hyperglycemia, without long-term current use of insulin ([facility]) Scan sensor every 8 hours 1 each 4 Active empagliflozin (Jardiance) 10 MG Take 1 tablet (10 mg) by mouth Once per day. 30 tablet 11 4 08/16/19 25 Active glucose 4 g chewable tabletIndications :Type 2 diabetes mellitus with hypoglycemia without coma, without long-term current use of insulin ([facility]) Chew 4 tablets (16 g) if needed for low blood sugar. 50 tablet 12 4 12/02/19 25 Active Alcohol Swabs (Alcohol Prep) 70 % pads USE TO CLEAN SKIN BEFORE testing blood SUGAR OR INJECTION 100 each 5 4 Active Lantus SoloStar 100 UNIT/ML pen Inject 10 Units under the skin Once per day. 4 Active LORazepam (Ativan) 1 MG tablet Take 1 tablet by mouth 2 times daily. 4 Active amLODIPine (Norvasc) 10 MG tablet Take 1 tablet (10 mg) by mouth Once per day. 90 tablet 4 Active carvedilol (Coreg) 25 MG tablet Take 1 tablet (25 mg) by mouth 2 times daily. 180 tablet 4 Active Continuous Glucose Sensor (FreeStyle Ave 2 Sensor) miscIndications:T ype 2 diabetes mellitus with hyperglycemia, without long-term current use of insulin (CMS/HCC) USE DIRECTED CHANGE EVERY 14 DAYS 2 each 3 4 Active escitalopram (Lexapro) 10 MG tabletIndications :Generalized anxiety disorder TAKE 1 TABLET BY MOUTH EVERY DAY 30 tablet 2 5 Active ondansetron (Zofran) 4 MG tabletIndications :Nausea TAKE 2 TABLETS BY MOUTH EVERY 8 HOURS NEEDED FOR NAUSEA AND VOMITING 30 tablet 5 Active pantoprazole (ProtoNix) 40 MG EC tabletIndications :Epigastric pain TAKE 1 TABLET BY MOUTH EVERY MORNING BEFORE BREAKFAST. DO NOT BREAK, CRUSH, DISSOLVE OR CHEW 90 tablet 5 Active insulin pen needle (Sure Comfort Pen [place]) 31G x 5 mm miscIndications:T ype 2 diabetes mellitus with hyperglycemia, without long-term current use of insulin (CMS/HCC) USE DAILY DIRECTED 100 each 11 5 Active Active Problems Problem Noted Date Diagnosed Date Nausea 03/02/2024 Epigastric pain 03/02/2024 Assessment & Plan (03/02/2024 2:18 PM EST): I went up on his pantoprazole to 40mg daily Zofrna PRN Patient has upcoming GI appointment on 03/16/23 I printed letter and advise not to miss his appointment Acute kidney injury superimposed on CKD ([facility] ) 03/02/2024 Assessment & Plan (03/02/2024 2:17 PM EST): Drink plenty of water Avoid nephrotoxic medication Work on glucose and blood pressure control 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 with color matcher 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 2 diabetes mellitus ([facility]) 12/02/2023 Assessment & Plan (03/02/2024 2:16 PM [...] RPR negative 12/2021 ?? Vision Exam: 12/2021, [place] ?? Dental Care: Discuss at follow up [...] 08/2022 Risk 0 Eye Exam: Referred to [facility]; followed by outside retinal specialist [...] morning FBG < 130 ?? Referral to [facility] DM educator Assessment & Plan (11/18/2022 12:46 [...] follow up Eye Exam: 12/2021, completed in [place] Lipid panel: 12/2021 WNL, order repeat at [...] of SI or self harm. Pt has [facility] crisis contact information Assessment & Plan (11/18/2022 12:46 PM EDT): ?? STOP sertraline due to s/e ?? Declines N referral ?? Contact HC if sx worsen or experiencing thoughts of SI or self harm. Pt has [facility] crisis contact information Assessment & Plan (08/05/2022 11:31 AM EDT): ?? INCREASE sertraline to 50mg daily ?? Declines N referral ?? Denies SI or thoughts of self harm Assessment & Plan (06/11/2022 1:08 PM EDT): ?? START sertraline 25mg once daily. Reviewed administration, risks, side effects ?? Declines N referral at this time ?? Contact HC if sx worsen or experiencing thoughts of suicide or self harm Resolved Problems Problem Noted Date Diagnosed Date Resolved Date KARUNA (acute kidney injury) 11/15/2023 Encounters Date Type Department Care Team Description 05/15/2024 Population Health Risk Score [facility] Care [facility] (C3) Department [address] [phone] Provider, Population Health Generic 05/13/2024 Telephone [facility] [address] [place] [address] [place] [facility] No Show 04/10/2024 Refill [facility] [address] [facility] [place] [address] [facility] Type 2 diabetes mellitus with hyperglycemia, without long-term current use of insulin ([facility]) 04/03/2024 Telephone [facility] [address] [place] [address] [facility] 04/02/2024 Orders Only GENERIC EXTERNAL DATA DEPARTMENT Provider, Generic External Data 03/30/2024 Refill [facility] [address] [place] [address] Irma Jensen MD Nausea; Epigastric pain 03/21/2024 Refill [facility] [address] [place], [place] [phone] [place] lee [facility] Generalized anxiety disorder 03/16/2024 Orders Only GENERIC EXTERNAL DATA DEPARTMENT Provider, Generic External Data 03/13/2024 Orders Only GENERIC EXTERNAL DATA DEPARTMENT Provider, Generic External Data 03/11/2024 Orders Only [facility] External Provider, [facility] from Last 3 Months Immunizations Name Administration [...] MMR 11/10/2013,10/26/1998,07/31/1994 Meningococcal MCV4P [id number]-135 01/15/2007 Novel Xayremiaz-C1H6-58, all formulations 01/17/2009 Pfizer Covid-19 Vaccine 12+ [...] 03/02/2024 1:27 PM EST Plan of Treatment Health Maintenance Due [...] RENAL BI Routine 03/11/2024 4:23 PM EST LIPID PANEL, STANDARD Routine 07/26/2022 12:08 PM [...] Whole Blood 194(H) 60 - 115 mg/dL [facility] Comment:METER #: [id number] 5Testing performed in the Endocrinology Department [address] , [address], [facility]. 04/02/2024 2:59 PM EST 04/02/2024 3:03 PM EST us Generic External Data Provider LAB BLOOD ORDERAB LES Final Result [facility] [address] [place] [phone] * (ABNORMAL) VITAMIN D 25-OH (D2 AND D3) (03/16/2024 4:20 PM EST) Vitamin D, 25-OH, D2 <4 ng/mL [facility] Comment:This test was develo ped and its analytical performancecharacteristics have been determined by [employer] [place], [place]. It hasnot been cleared or approved by the U.S. Food and DrugAdministration. This assay has been validated pursuantto the CLIA regulations and is used for clinicalpurposes.THIS TEST WAS PERFORMED AT:[facility] [place] [address]SYOAUTCSILVA EDGE MD,PHD Vitamin D, 25-OH, D3 17 ng/mL [facility] Comment:This test was develo ped and its analytical performancecharacteristics have been determined by [employer] [place], [place]. It hasnot been cleared or approved by the U.S. Food and DrugAdministration. This assay has been validated pursuantto the CLIA regulations and is used for clinicalpurposes. Vitamin D, 25-OH, Total 17(A) 30 - 100 ng/mL [facility] Comment:Vitamin D, 25-Hydrox y reports concentrations [...] = 30 ng/mL.For additional information, please refer tohttp://education.ideacts innovations/faq/BNL374(This link is being provided for informational/educational purposes only.) 03/16/2024 4:20 PM EST 03/16/2024 4:20 PM EST us Generic External Data Provider LAB BLOOD ORDERAB LES Final Result [facility] [address] [place] [phone] * Vitamin B12 (Cobalamin) and Folate Panel, Serum (03/16/2024 4:20 PM EST) Vitamin B12 450 200 - 900 pg/mL [facility] Comment:NORMAL 200-900 PG/ML INDETERMINATE 160-199 PG/ML DEFICIENT < 160 PG/ML Folate 12.6 > or = 4.0 ng/mL [facility] Comment:Reference Values:> o r = 4.0 ng/mL< 4.0 ng/mL suggests folate deficiency Methotrexate, aminopterin and folinic acid(leucovorin) are chemotherapeutic agents whose molecularstructures are similar to folate; therefore, the Architectfolate assay cannot be used for patients using these drugs. 03/16/2024 4:20 PM EST 03/16/2024 4:20 PM EST Generic External Data Provider LAB BLOOD ORDERAB LES Final Result Performing Organization Address [facility] de Phone Number [facility] [address] [place] [phone] * Tissue Transglutaminase Antibody, IgA (03/16/2024 4:20 PM EST) Transglutaminase IgA <1.0 U/mL [facility] Comment:Value Interpretation ----- <15.0 Antibody not detected> or = 15.0 Antibody detectedTHIS TEST WAS PERFORMED AT:[employer] [place] [id number] BAEZ MD 03/16/2024 4:20 PM EST 03/16/2024 4:20 PM EST Generic External Data Provider LAB BLOOD ORDERAB LES Final Result Performing Organization Address [facility] Number [facility] [address] [place] [phone] * (ABNORMAL) Hemoglobin A1c (03/16/2024 4:20 PM EST) Hemoglobin A1c 6.8(H) <6.0 % [facility] Comment:Hemoglobin A1C Refer ence Range Adults: 4.8 - 6.0 % Non diabetic: < 6.0 % Goal: < 7.0 %Additional Action Suggested: > 8.0 %Note: Hemoglobin A1c results are invalid for patients with abnormal amounts of HbF. Blood transfusions may impact the HbA1c concentration in the patient sample. Estimated Average Glucose 148 mg/dL [facility] Comment:eAG = Estimated ave rage glucose which is %A1C expressed asaverage glucose, using the formula of the E3L-XfflfypVerjhdg Glucose study (ADAG), Diabetes Care, Vol.31,#8,2007 03/16/2024 4:20 PM EST 03/16/2024 4:20 PM EST us Generic External Data Provider LAB BLOOD ORDERAB LES Final Result Performing Organization Address City/[facility]/ZIP Co de Phone Number [facility] [address] [place] [phone] * (ABNORMAL) Basic Metabolic Panel (03/13/2024 4:26 PM EST) Only the most recent of2 resultswithin the time period is included. Sodium 140 135 - 145 mmol/L [facility] Potassium 4.7 3.3 - 5.1 mmol/L [facility] Chloride 107 96 - 108 mmol/L [facility] Carbon Dioxide 27 22 - 29 mmol/L [facility] Anion Gap 11(L) 12 - 20 [facility] Urea Nitrogen (BUN) 25(H) 9 - 16 mg/dL [facility] Creatinine, Serum 1.55(H) 0.5 - 1.4 mg/dL [facility] Creatinine Clr Calc Pharmacy 81.7 [facility] Comment:eGFR (calculated fro m the MDRD study equation) and eCrCl(calculated from the Cockcroft-Gault equation) are based ondifferent parameters and may not yield comparable results.If eCrCl result is absurd, please check patient'sheight/weight. Estimated Glomerular Filt Rate 53 [facility] Comment:Chronic Kidney Disea se: Estimated GFR < 60 mL/min/1.97a3Ywdfmj Kidney Disease: Estimated GFR < 15 mL/min/1.73m2 Glucose 156(H) 60 - 115 mg/dL [facility] Calcium 8.6 8.4 - 10.2 mg/dL [facility] 03/13/2024 4:26 PM EST 03/13/2024 4:29 PM EST us Generic External Data Provider LAB BLOOD ORDERAB LES Final Result [facility] [address] [place] [phone] [phone] * (ABNORMAL) Urinalysis, Complete, with Reflex to Culture (03/13/2024 1:05 PM EST) Color Urine Yellow [facility] Appearance Urine Clear [facility] PH 7.5 5.0 - 9.0 [facility] Glucose Urine UA >=1000(A) Negative mg/dL [facility] Urine Blood Large (3+)(A) Negative [facility] Specific [place] - Urine 1.020 1.005 - 1.025 [facility] Urine Protein 300 (3+)(A) Neg-Trace mg/dL [facility] Urine Ketones Trace Negative mg/dL [facility] Nitrite Urine Negative Negative [facility] Leukocyte Esterase Urine Negative Negative [facility] RBC Urine >20(A) 0 - 2 /HPF [facility] Urine WBC 0-5 0 - 5 /HPF [facility] Urine Squamous Epithelial Cell 0-2 0 - 2 /HPF [facility] Urine Bacteria None Seen None Seen [facility] Hyaline Casts, Urine 0-2 0 - 2 /LPF [facility] 03/13/2024 1:05 PM EST 03/13/2024 1:08 PM EST Narrative [facility] - 03/13/2024 1:54 PM EST [id number], [employer] us Generic External Data Provider LAB URINE ORDERAB LES Final Result Performing Organization Address [facility]/ZIP Co de Phone Number [facility] [address] [place] [address] [phone] * (ABNORMAL) Drug Monitoring, Panel 1, Screen, Urine (03/13/2024 1:05 PM EST) Opiate Screen Urine Not Detected Not Detect [facility] Comment:Opiate cut-off is 30 0 ng/mL.Positive results are unconfirmed and should not be used fornon-medical purposes. Barbiturates, Urine Not Detected Not Detect [facility] Comment:Barbiturate cut-off is 200 ng/mL.Positive results are unconfirmed and should not be used fornon-medical purposes. Phencyclidine Screen Urine Not Detected Not Detect [facility] Comment:Phencyclidine cut-of f is 25 ng/mL.Positive results are unconfirmed and should not be used fornon-medical purposes. Amphetamine Screen Urine Not Detected Not Detect [facility] Comment:Amphetamine cut-off is 1000 ng/mL.Positive results are unconfirmed and should not be used fornon-medical purposes. Benzodiazepines Screen Urine Not Detected Not Detect [facility] Comment:Benzodiazepine cut-o ff is 200 ng/mL.Positive results are unconfirmed and should not be used fornon-medical purposes. Cocaine Screen Urine Not Detected Not Detect [facility] Comment:Cocaine cut-off is 3 00 ng/mL.Positive results are unconfirmed and should not be used fornon-medical purposes. Cannabinoid Screen Urine POSITIVE(A) Not Detect [facility] Comment:Cannabinoid cut-off is 50 ng/mL.Positive results are unconfirmed and should not be used fornon-medical purposes. Methadone Screen, Urine Not Detected Not Detect ng/mL [facility] Comment:Methadone cut-off is 300 ng/mL.Positive results are unconfirmed and should not be used fornon-medical purposes. FENTANYL URINE Not Detected Not Detect [facility] Comment:Fentanyl cut-off is 1 ng/mL.Positive results are unconfirmed and should not be used fornon-medical purposes. Oxycodone Urine Screen Not Detected Not Detect ng/mL [facility] Comment:Oxycodone cut-off is 100 ng/mL.Positive results are unconfirmed and should not be used fornon-medical purposes. Buprenorphine Screen Not Detected Not Detect ng/mL [facility] Comment:Buprenorphine cut-of f is 5 ng/mL.Positive results are unconfirmed and should not be used fornon-medical purposes. 03/13/2024 1:05 PM EST 03/13/2024 1:08 PM EST us Generic External Data Provider LAB URINE ORDERAB LES Final Result Performing Organization Address [facility] Co de Phone Number [facility] [address] [place] [phone] * (ABNORMAL) VENOUS BLOOD GAS (03/13/2024 11:53 AM EST) VBG pH 7.52(H) 7.32 - 7.43 [facility] Comment:METER #: [id number] additional_comment: Cb snowma VBG PCO2 29 mmHg [facility] Comment:METER #: [id number] additional_comment: Cb snowma VBG PO2 61 mmHg [facility] Comment:METER #: [id number] additional_comment: Cb snowma VBG Base Excess 2.4 mmol/L [facility] Comment:METER #: [id number] additional_comment: Cb snowma VBG HCO3 24 22 - 26 mmol/L [facility] Comment:METER #: [id number] additional_comment: Cb snowma O2 Sat, Arnel 92.0 % [facility] Comment:METER #: [id number] additional_comment: Cb snowma 03/13/2024 11:5 3 AM EST 03/13/2024 12:02 PM EST Generic External Data Provider LAB BLOOD ORDERAB LES Final Result Performing Organization Address [facility] de Phone Number [facility] [address] [place] [phone] * High Sensitivity Troponin I (03/13/2024 11:45 AM EST) TROPONIN I HIGH SENSITIVITY <2.7 <3.5 - 35.0 ng/L [facility] Comment:The Akers high sens itivity Troponin-I results should beused in conjunction with other diagnostic information suchas ECG, clinical observations and information, and patientsymptoms to aid in the diagnosis of SD. 03/13/2024 11:4 5 AM EST 03/13/2024 11:51 AM EST us Generic External Data Provider LAB BLOOD ORDERAB LES Final Result Performing Organization Address [facility] Co de Phone Number [facility] [address] [place] [phone] * Ethanol (03/13/2024 11:45 AM EST) ETHANOL (MG/DL) IN SER/PLAS <10 mg/dL [facility] Comment:Serum/plasma ethanol results are to be used formedical/treatment purposes only. 03/13/2024 11:4 5 AM EST 03/13/2024 11:51 AM EST Generic External Data Provider LAB BLOOD ORDERAB LES Final Result Performing Organization Address [facility] de Phone Number [facility] [address] [place] [phone] * SARS-CoV-2 RNA, Influenza A/B, and RSV RNA, Ql NAAT (03/13/2024 11:45 AM EST) Pathologist [facility] Influenza A PCR NEGATIVE Negative [facility] Influenza B PCR NEGATIVE Negative [facility] Resp Syncy Virus RNA Qual PCR NEGATIVE Negative [facility] SARS COV2 PCR NEGATIVE Negative [facility] Comment:All test results mus t [...] use by authorized laboratories.Testing performed on the [employer] GeneXpert utilizingreal-time RT-PCR.All SARS CoV2 and positive influenza A/B results arereported to [facility]. 03/13/2024 11:4 5 AM EST 03/13/2024 11:51 AM EST us Generic External Data Provider LAB MICROBIOLOGY - GENERAL ORDERABLES Final Result Performing Organization Address [facility] Co de Phone Number [facility] [address] [place] [phone] * (ABNORMAL) Beta-Hydroxybutyrate (03/13/2024 11:45 AM EST) Pathologist [facility] Beta-Hydroxybu tyrate 0.71(H) 0.02 - 0.27 mmol/L [facility] 03/13/2024 11:4 5 AM EST 03/13/2024 11:51 AM EST Generic External Data Provider LAB BLOOD ORDERAB LES Final Result Performing Organization Address [facility] de Phone Number [facility] [address] [place] [phone] * (ABNORMAL) CBC auto differential (03/13/2024 11:45 AM EST) Pathologist [facility] White Blood Count 13.7(H) 4.8 - 10.8 X10*3/uL [facility] Red Blood Count 3.82(L) 4.60 - 5.80 X10*6/uL [facility] Hemoglobin 11.7(L) 14.0 - 18.0 g/dl [facility] Hematocrit 33.3(L) 42.0 - 52.0 % [facility] Mean Corpuscular Volume 87.2 80.0 - 98.0 fL [facility] Mean Corpuscular Hemoglobin 30.6 27.0 - 33.0 pg [facility] Mean Corpuscular HGB Conc 35.1 31.0 - 36.0 g/dl [facility] Red Cell Distribution Width 12.6 11.0 - 16.0 % [facility] Platelet Count 296 160 - 400 X10*3/uL [facility] Mean Platelet Volume 10.0 9.4 - 12.4 fL [facility] Neutrophils Percent Auto 84.7(H) 45 - 73 % [facility] Imm Gran Pct Auto 0.4 0.0 - 0.4 % [facility] Lymphocytes Percent Auto 10.1(L) 20 - 40 % [facility] Monocytes Percent Auto 3.9 2 - 11 % [facility] Eosinophils Percent Auto 0.5 0 - 4 % [facility] Basophils Percent Auto 0.4 0 - 2 % [facility] NRBC Pct Auto 0.0 0.0 - 0.2 /100WBC [facility] Neutrophils Absolute Auto 11.6(H) 2.0 - 8.3 x10*3/uL [facility] Imm Gran Abs Auto 0.06(H) 0.00 - 0.03 X10*3/uL [facility] Lymphocytes Absolute Auto 1.4 1.2 - 4.9 X10*3/uL [facility] Monocytes Absolute Auto 0.5 0.1 - 1.2 X10*3/uL [facility] Eosinophils Absolute Auto 0.1 0.0 - 0.4 X10*3/uL [facility] Basophils Absolute Auto 0.1 0.0 - 0.2 X10*3/uL [facility] NRBC Abs Auto 0.000 0.0 - 0.012 X10*3/uL [facility] 03/13/2024 11:4 5 AM EST 03/13/2024 11:51 AM EST us Generic External Data Provider LAB BLOOD ORDERAB LES Final Result [facility] [address] [place] [phone] * (ABNORMAL) Prothrombin Time-INR (03/13/2024 11:45 AM EST) Prothrombin Time 10.1(L) 10.9 - 12.4 SEC [facility] INTERNATIONAL NORM RATIO 0.9 0.9 - 1.1 [facility] Comment:INTERNATIONAL NORMAL IZED RATIO (INR) REFERENCE [...] ORDERAB LES Final Result Performing Organization Address [facility] Co de Phone Number [facility] [address] [place] [phone] * C-reactive Protein (03/13/2024 11:45 AM EST) C Reactive Protein 0.28 < or = 0.50 mg/dL [facility] 03/13/2024 11:4 5 AM EST 03/13/2024 11:51 AM EST [employer] External Data Provider LAB BLOOD ORDERAB LES Final Result Performing Organization Address [facility] Co de Phone Number [facility] [address] [place] [phone] * (ABNORMAL) B Type Natriuretic Peptide (BNP) (03/13/2024 11:45 AM EST) B Type Natriuretic Peptide 154(H) <100 pg/mL [facility] Comment:For those patients w ho are being treated with Natrecor(nesiritide, recombinant BNP), BNP testing should beperformed at least two hours post treatment in order toensure that only endogenous levels of BNP are detected. 03/13/2024 11:4 5 AM EST 03/13/2024 11:51 AM EST Generic External Data Provider LAB BLOOD ORDERAB LES Final Result Performing Organization Address [facility]/ZIP Co de Phone Number [facility] [address] [place] [phone] * Magnesium (03/13/2024 11:45 AM EST) Magnesium 2.4 1.6 - 2.6 mg/dL [facility] 03/13/2024 11:4 5 AM EST 03/13/2024 11:51 AM EST Generic External Data Provider LAB BLOOD ORDERAB LES Final Result Performing Organization Address [facility] Co de Phone Number [facility] [address] [place] [phone] * Lipase (03/13/2024 11:45 AM EST) Pathologist [facility] Lipase 32 8 - 78 U/L [facility] 03/13/2024 11:4 5 AM EST 03/13/2024 11:51 AM EST Generic External Data Provider LAB BLOOD ORDERAB LES Final Result Performing Organization Address [facility] de Phone Number [facility] [address] [place] [phone] * Hepatic Function Panel (03/13/2024 11:45 AM EST) Bilirubin, Total 0.7 0.0 - 1.0 mg/dL [facility] Bilirubin, Direct 0.2 0.0 - 0.5 mg/dL [facility] Aspartate Amino Transferase 28 5 - 37 U/L [facility] Comment:Slight Hemolysis.Int erpret result with caution. Alanine Aminotransferase 16 0 - 40 U/L [facility] Total Protein 7.8 6.5 - 8.0 g/dL [facility] Albumin Level 4.1 3.5 - 5.0 g/dL [facility] Alkaline Phosphatase 92 39 - 117 U/L [facility] 03/13/2024 11:4 5 AM EST 03/13/2024 11:51 AM EST us Generic External Data Provider LAB BLOOD ORDERAB LES Final Result Performing Organization Address [facility]/State/ZIP Co de Phone Number [facility] [address] [facility] [place] [address] [phone] * XR Chest 1 View (03/13/2024 11:39 AM EST) Anatomical Region Laterality Modality Chest Radiographic Robyn ging 03/13/2024 11:3 9 AM EST Narrative 03/13/2024 12:21 PM EST ? [facility] ?[address] ?Jodi Narayan [address] ?XRay Report ? Signed ? Patient: Boateng,Tristen ?MR#: [id number] ?? 8 ? : 1995 ?Acct:[id number] ? Age/Sex: 28 / M ?ADM Date: 03/13/24 ? Loc: HO.ED ? Attending Dr: ? Ordering Physician: Stefan Sequeira MD ?? Date of Service: 03/13/24 ?? Procedure(s): XR chest 1V ?? Accession Number(s): [id number] ? cc: Stefan Sequeira MD; Leanne Alcazar PROCESS IMPROVEMENT MANAGER ? EXAMINATION: ?? XR CHEST ? CLINICAL [...] signed by Amarjit Kim MD in OV> ?01/10/25 1218 ? DD/DT: //25 1139 ? TD/TT: 03/13/24 1207 ? Roll Weigher: ? Procedure Note Donotcarolyninterpreter, Image - 03/13/[address] [address] XRay Report Signed Patient: Mala Boateng#: [id number] 8 : 1995Acct:[id number] Age/Sex: 28 / MADM Date: 03/13/24 Loc: HO.ED Attending Dr: Ordering Physician: Stefan Sequeira MD Date of Service: 03/13/24 Procedure(s): XR chest 1V Accession Number(s): [id number] cc: Stefan Sequeira MD; Leanne Alcazar [facility] EXAMINATION: XR CHEST CLINICAL INFORMATION: sever [...] 03/13/24 1218 DD/ 1139 TD/TT: 03/13/24 1207 Roll Weigher: us [facility] External Provider IMG XR PROCEDURES Final Result * US RENAL BI (03/11/2024 4:23 PM EST) Anatomical Region Laterality Modality Abdomen Ultrasound 03/11/2024 4:23 PM EST Narrative 03/13/2024 11:35 AM EST ? [facility] ?[address] ?[place] [address] ? Ultrasound Report ? Signed ? Patient: Boateng,Tristen ?MR#: [id number] ?? 8 ? : 1995 ?Acct:[id number] ? Age/Sex: 28 / M ?ADM Date: //25 ? Loc: HO.US ? Attending Dr: Myla Fraire DNP, PROCESS IMPROVEMENT MANAGER-BC ? Ordering Physician: Myla Fraire DNP, FNP-BC ?? Date of Service: 03/11/24 ?? Procedure(s): US renal BI ?? Accession Number(s): [id number] ? cc: Myla Fraire DNP, PROCESS IMPROVEMENT MANAGER-BC; [facility] PROCESS IMPROVEMENT MANAGER ? EXAMINATION: ??US KIDNEY BILATERAL ? HISTORY: [...] DD/ 1623 ? TD/TT: 03/11/24 1625 ? Roll Weigher: ? Procedure Note Ronda, Image - 03/13/[address] [address] Ultrasound Report Signed Patient: Mala Boateng#: [id number] 8 : 1995Acct:[id number] Age/Sex: 28 / MADM Date: 03/11/24 Loc: HO.US Attending Dr: Myla Fraire DNP, PROCESS IMPROVEMENT MANAGER-BC Ordering Physician: Myla Fraire DNP [facility] Date of Service: 03/11/24 Procedure(s): US renal BI Accession Number(s): [id number] cc: Darren Fraireah Ana Laura SHEETS [facility]; Leanne Alcazar [facility] EXAMINATION: US KIDNEY BILATERAL HISTORY: N18.2 - [...] by: Martin Puentes MD 03/13/2024 11:32 AM [facility] Dictated By: Martin Puentes MD Signed By: <Electronically signed by Martin Puentes MD in OV> 03/13/24 1132 DD/ 1623 TD/TT: 03/11/24 1625 Roll Weigher: [facility] External Provider IM US PROCEDURES Final Result * Lipid Panel, Standard (07/26/2022 12:08 PM EDT) Cholesterol, Total 169 <200 mg/dL [facility] HDL Cholesterol 53 > OR = 40 mg/dL [facility] Triglycerides 103 <150 mg/dL [facility] LDL Cholesterol 96 mg/dL (calc) [facility] Comment: Reference range: <100 Desirable range <100 mg/dL for primary prevention; ?? <70 mg/dL for patients with CHD or diabetic patients with > or = 2 CHD risk factors. LDL-C is now calculated using the Cristo-Gonzalez calculation, which is a validated novel method providing better accuracy than the Friedewald equation in the estimation of LDL-C. Cristo SS et al. ROSIO. 2013;310(19): 0008-7623 (http://BiggerBoat.ideacts innovations/faq/INP410) Chol/HDLC Ratio 3.2 <5.0 (calc) [facility] Non-HDL Cholesterol 116 <130 mg/dL (calc) [facility] Comment: For patients with diabetes plus 1 major ASCVD risk factor, treating to a non-HDL-C goal of <100 mg/dL (LDL-C of <70 mg/dL) is considered a therapeutic option. Blood Venous blood specimen / Unknown 07/26/2022 12:08 PM EDT 07/26/2022 12:08 PM EDT Narrative [facility] - 07/27/2022 6:10 AM EDT FASTING:YES FASTING: YES Result [facility] LAB BLOOD ORDERABLES Final Re sult [facility] [address], [place] [address] [facility] [address] [place] [address] * HEPATITIS C AB W/REFL TO HCV [...] a test for HCV RNA (test code 93049) is suggested. ?? For additional information please refer to http://education.PharmMD/faq/PRZ76e2 (This link is being provided for informational/ educational purposes only.) ?? 12/13/2021 11:5 1 AM EDT [facility] PROCESS IMPROVEMENT MANAGER HISTORICAL/NON ORDERABLE LABS Final Result CONVERTED LEGACY LABS * HIV 1/2 ANTIGEN/ANTIBODY,FOURTH [...] ? For additional information please refer to http://education.PharmMD/faq/MHS020 (This link is being provided for informational/ educational purposes only.) ? The performance of this assay has not been clinically validated in patients less than 2 years old. ?? 12/13/2021 11:5 1 AM EDT [facility] PROCESS IMPROVEMENT MANAGER LAB BLOOD ORDERABLES Final Re sult Performing Organization Address City/[facility]/ZIP Co de Phone Number CONVERTED LEGACY LABS from Last 3 Months or Most Recently Relevant to Health Maintenance [facility] * Guarantor: Tristen Boateng Account Type Relation to Patient Date of Phone Billing Address Personal/Family Self [address] [place] [address] * Guarantor: Tristen Boateng Account Type Relation to Patient Date of Phone Billing Address Personal/Family Self [address] [place] [address] * Guarantor: Tristen Boateng Account Type Relation to Patient Date of Phone Billing Address Personal/Family Self [address] [place] [address] Care Teams Greens Keeper Relationship Specialty Start Date End Date Leanne Alcazar FNP [address] [place] [address] PCP - General Family Medicine 12/13/21
--- OUTSIDE RECORDS SUMMARY | 2024-06-05 20:41 | XMS_ITS | Encounter Summary ---
Author Organization [facility] Address [address] [place] [address] Phone Care Team Providers Care Wild Oyster Harvester Name Role Phone Tete Sutherland MD Primary Care Provider Encounter Details Date Type Department Care Team (Late st Contact Info) Description 10/22/2012 Documentation [facility] Family Medicine [address] [place] [address] Family Medicine, Physician [address] [place], [place] [phone] Social History Tobacco Use Types Packs/Day Years [...] on filedocumented in this encounter Care Teams Wild Oyster Harvester Relationship Specialty Start Date End Date Tete Sutherland MD [address] [place] [address] [place] [address] PCP - General 10/12/16 08/27/22 documented as of this encounter
--- OUTSIDE RECORDS SUMMARY | 2024-06-05 20:41 | XMS_ITS | Encounter Summary ---
Author Organization [facility] Address [address] [place] [address] Phone Care Team Providers Care Scrap Iron Cutter Name Role Phone Tete Sutherland MD Primary Care Provider [phone] Encounter Details Date Type Department Care Team (Late st Contact Info) Description 05/26/2014 Documentation [facility] [place] Medicine [address] [place] [address] Family Medicine, Physician [address] [place], [place] [phone] Social History Tobacco Use Types Packs/Day Years [...] on filedocumented in this encounter Care Teams Scrap Iron Cutter Relationship Specialty Start Date End Date Tete Sutherland MD [address] [place] [address] [place] [address] PCP - General 10/12/16 08/27/22 documented as of this encounter
--- OUTSIDE RECORDS SUMMARY | 2024-06-05 20:42 | XMS_ITS | Encounter Summary ---
Author Organization [employer] [facility] Address [address] [facility] 7[address] [place] [address] Care Team Providers Care Accordion Repairer Name Role Phone Ottoniel [facility] Primary Care Provider [phone] Reason for Visit * Reason Onset Date Comments F 05/21/2022 Encounter Details Date Type Department Care Team ([facility] st Contact Info) Description 05/21/2022 Telephone [facility] MEDICINE [address] [place], [place] [phone] [facility] [address] [place] [address] [facility] Social History Tobacco Use Types Packs/Day Years [...] HDF F/U (no symptoms) Patient hospitalized at [facility]. Patient was admitted on 05/20/2022 and discharged on 05/21/2022. The patient was diagnosed with Virus. Patient advised will forward to [facility] Clinical Coordinators for follow up and appointment scheduling. Please contact Pt at [phone] documented in this encounter Plan of Treatment Not on file documented as of this encounter Visit Diagnoses Not on filedocumented in this encounter Care Teams Accordion Repairer Relationship Specialty Start Date End Date Leanne Alcazar FNP [address] [place] [address] PCP - General Family Medicine 12/13/21 documented as of this encounter
--- OUTSIDE RECORDS SUMMARY | 2024-06-05 20:42 | XMS_ITS | Encounter Summary ---
Author Organization [employer] Address [address] [facility] [address]t [place] [address] Care Team Providers Care Digester Name Role Phone Leanne Alcazar [facility] Primary Care Provider [phone] Reason for Visit * Reason Onset Date Comments Nurse Triage 08/15/2023 Encounter Details Date Type Department Care Team ([facility] st Contact Info) Description 08/15/2023 Telephone [facility] MEDICINE [address] [place], [place] [phone] [facility] [address] [place] [address] Nurse Triage Social History Tobacco Use Types [...] is your housing situation today? I have felotn montano 01/28/[address] you [...] blood sugars were WNL. Pt [place] [facility] [place] in the [...] past 3 days, pt was seen [place] [facility] [place] for nausea/vomiting. Pt has not eaten in 28 hours. The caller accepted this outcome Please contact pt at [phone] documented in this encounter Plan of Treatment Not on file documented as of this encounter Visit Diagnoses Not on filedocumented in this encounter Additional Health Concerns Assessment Noted Time PHQ-9 Depression Total Score: 24 023 10:42 AM EST documented as of this encounter Care Teams Digester Relationship Specialty Start Date End Date Leanne Alcazar FNP [address] [place] [address] PCP - General Family Medicine 12/13/21 documented as of this encounter
--- OUTSIDE RECORDS SUMMARY | 2024-06-05 20:42 | XMS_ITS | Encounter Summary ---
Author Organization [facility] Address [address] [place] [address] Phone Care Team Providers Care Procurement Professional Name Role Phone Tete Sutherland MD Primary Care Provider [phone] Encounter Details Date Type Department Care Team (Late st Contact Info) Description 01/29/2012 Documentation [facility] Family Medicine [address] [place] [address] Family Medicine, Physician [address] [place], [place] [phone] Social History Tobacco Use Types Packs/Day Years [...] on filedocumented in this encounter Care Teams Procurement Professional Relationship Specialty Start Date End Date Tete Sutherland MD [address] [place] [address] SULMA Narayan [address] PCP - General 10/12/16 08/27/22 documented as of this encounter
--- OUTSIDE RECORDS SUMMARY | 2024-06-05 20:42 | XMS_ITS | Encounter Summary ---
Author Organization [facility] Address [address] [place] [address] Phone Care Team Providers Care Bioinformatics Assistant Name Role Phone Tete Sutherland MD Primary Care Provider [phone] Encounter Details Date Type Department Care Team (Late st Contact Info) Description 07/21/2012 Documentation [facility] Family Medicine [address] [place] [address] Family Medicine, Physician [address] [place], [place] [phone] Social History Tobacco Use Types Packs/Day Years [...] on filedocumented in this encounter Care Teams Bioinformatics Assistant Relationship Specialty Start Date End Date Tete Sutherland MD [address] [place] [address] [place] [address] PCP - General 10/12/16 08/27/22 documented as of this encounter
--- OUTSIDE RECORDS SUMMARY | 2024-06-05 20:42 | XMS_ITS | Encounter Summary ---
Author Organization [facility] Address [address] [place] [address] Phone Care Team Providers Care Electric Stove Installer Name Role Phone Tete Sutherland MD Primary Care Provider Encounter Details Date Type Department Care Team (Late st Contact Info) Description 08/05/2009 Documentation [facility] [place] [place] Family Medicine [address] [place] [address] Family Medicine, Physician [address] [place], [place] [phone] Social History Tobacco Use Types Packs/Day Years [...] on filedocumented in this encounter Care Teams Electric Stove Installer Relationship Specialty Start Date End Date Tete Sutherland MD [address] [place] [address] S[place] Narayan [address] PCP - General 10/12/16 08/27/22 documented as of this encounter
[2024-06-05] MEDS: 0.9 % Sodium Chloride 1,000 ML 999 ML IV ×2 (22:09→23:09)
[2024-06-05] MEDS: Haloperidol Lactate 5 MG/ML VIAL 2.5 MG IVPUSH (22:11)
[2024-06-05] MEDS: LORazepam 2 MG/ML VIAL 1 MG IVPUSH (22:12)
[2024-06-05 23:33] VITALS: BP 160/84; PULSE 95; RESP 20; TEMP 37; O2SAT 97
[2024-06-06 00:58] LABS: Anion Gap 16 (12-20); Blood Urea Nitrogen 36 mg/dL (9-16); Calcium 8.3 mg/dL (8.4-10.2); Carbon Dioxide 23 mmol/L (22-29); Chloride 104 mmol/L (96-108); Creatinine Clr Calc Pharmacy 66.6; Estimated Glomerular Filt Rate 43; Glucose Random 134 mg/dL (60-115); Potassium 3.5 mmol/L (3.3-5.1); Sodium 139 mmol/L (135-145)
[2024-06-06 02:01] VITALS: BP 176/82; PULSE 100; RESP 18; TEMP 37.4; O2SAT 98
--- NOTE | 2024-06-06 02:23 | PC.NURSE ---
pt able to tolerate po fluids pt ambulatory though noted to keep hunching over when pt asked what was wrong would not answer this rn iv removed at discharge nico raman made aware of temp 99.2 temporal and bp 176/82 no new orders
[2024-06-06 02:31] VITALS: BP 176/82; PULSE 100; RESP 18; TEMP 36.6; O2SAT 98
== END 2024-06-06 02:32 | disposition home or self-care (01) ==
PROVIDERS: Physician Assistant; Physician Assistant Medical; Emergency Provider Internal Medicine; PCP Registered Nurse
DX: R11.2 Nausea with vomiting, unspecified (principal); R10.2 Pelvic and perineal pain; N17.9 Acute kidney failure, unspecified; F12.90 Cannabis use, unspecified, uncomplicated; E11.43 Type 2 diabetes mellitus with diabetic autonomic (poly)neuropathy; K31.84 Gastroparesis; Z03.818 Encounter for observation for suspected exposure to other biological agents ruled out; Z79.899 Other long term (current) drug therapy; Z79.4 Long term (current) use of insulin
CPT/HCPCS: 0241U; 36415; 80048; 80053; 83735; 85025; 96361; 96374; 96375; 99284; J1630; J2060

== ENCOUNTER → 2024-06-25 12:43 | Outpatient (REF) | payer MEDICAID, SELFPAY ==
--- NOTE | 2024-06-25 12:45 | CA_ITS ---
Transthoracic Echocardiogram Patient (Last, First, Middle): Tristen Boateng, Gender: Male Date of : 1995 Age: 29 Procedure Date: 06/25/2024 Procedure Type: Transthoracic Echocardiogram Location: OP Height: 170.18 cm Weight: 99.79 kg BSA: 2.11 m2 Heart Rate: 70 bpm BP: 115 / 80 mmHg Manager Advertising: JIM/FOZIA Referring MD: Jean-Pierre Lauren MD Symptoms: I42.9 - Cardiomyopathy, unspecified Study Quality: Fair ECG Rhythm: Sinus Conclusions: - The left ventricular systolic function is mildly decreased. The calculated ejection fraction is 50% by biplane method. - There is moderately increased left ventricular wall thickness. - No obvious valvular pathology seen on this study. Findings Left Ventricle Normal left ventricular cavity size. There is moderately increased left ventricular wall thickness. The left ventricular systolic function is mildly decreased. The calculated ejection fraction is 50% by biplane method. There is mild global hypokinesis. Diastolic function is normal for age. LV peak GLS -14.3%. Right Ventricle Mildly increased right ventricular cavity size. There is normal right ventricular systolic function. Atria Both atria are normal in size. Aortic Valve There is a normal trileaflet aortic valve. There is no aortic valve stenosis. There is no aortic valve regurgitation. Mitral Valve The mitral valve appears normal. There is trace mitral valve regurgitation. There is no mitral valve stenosis. Pulmonic Valve The pulmonic valve is likely normal. Tricuspid Valve There is trace tricuspid valve regurgitation. Tricuspid regurgitation envelope is inadequate for calculation of right ventricular systolic pressure. Great Vessels The asc aorta is normal in size. Venous The inferior vena cava is normal in size and collapses greater than 50% with inspiration. Pericardium/Pleural There is no evidence of pericardial effusion. Prior Study Comparison No significant change compared to prior study dated: 06/24/2023. Recommendations, Care & Conclusions No obvious valvular pathology seen on this study. Measurements 2D Linear Measurements IVSd: 1.44 0.6-0.9/0.6-1.0 cm LVIDd: 5.28 3.9-5.3/4.2-5.9 cm LVIDd Index: 2.50 2.4-3.2/2.2-3.1 cm/m2 LVIDs: 3.44 2.0-3.6 cm LVPWd: 1.38 0.7-1.1 cm LA Diam: 4.10 2.7-3.8/3.0-4.0 cm LAIDs Index: 1.94 1.5-2.3 cm/m2 LV Mass: 399.61 67-162/88-224 g LV Mass Index: 189.39 43-95/49-115 g/m2 LVOT Diam: 2.20 3.0+(-)1.3 cm 2D Systolic Function EF 4C: 42.30 >55% EF 2C: 56.90 >55% EF BiP: 49.80 >55% Mitral Valve MV Pk E: 0.75 MV PK A: 0.50 MV Decel Time: 195.00 E/A: 1.50 E'Lateral: 13.90 E'Medial: 8.49 E/E' Med: 8.90 E/E' Lat: 5.40 PHT: 57.00 MVA PHT: 3.86 Decel [place]: 3.87 Aortic Valve AoV Pk Tristian: 1.28 AoV Mn Tristian: 0.91 AoV VTI: 0.28 AoV Pk Grad: 7.00 Aov Mn Grad: 4.00 LUCIANO Cont.VTI: 3.29 LVOT LVOT Pk Tristian: 1.01 LVOT Mn Tristian: 0.79 LVOT VTI: 0.25 LVOT Pk Grad: 4.00 LVOT Mn Grad: 3.00 LVOT Diam: 2.20 LVOT Area: 3.80 Diastolic Function MV Pk E: 0.75 MV Pk A: 0.50 E/A: 1.50 E'Medial: 8.49 E/E' Med: 8.90 E' Laterial: 13.90 E/E' Lat: 5.40 Right Ventricle TAPSE (mm): 20.70 TVS' Tristian: 11.70 Tricuspid Valve RA Press: 3.00 Great Vessels Aorta Sinus of Valsalva: 3.00 2.0-3.5 cm Ao Asc: 3.30 2.1-3.4 cm Pulmonary Valve PV Pk Tristian: 1.15 Peak PV Grad: 5.00 Updated in Other Vendor System with Status of Final Pranav Altamirano MD electronically signed on 06/26/2024 5:11:00 PM with status of Final
--- OUTSIDE RECORDS SUMMARY | 2024-06-25 14:56 | XMS_ITS | Encounter Summary ---
Author Organization [employer] Address [address] [facility] 7t [place] [address] Care Team Providers Care Thermoscrew Operator Name Role Phone Leanne Alcazar [facility] Primary Care Provider [phone] Reason for Visit * Reason Onset Date Comments Nurse Triage 08/15/2023 Encounter Details Date Type Department Care Team ([facility] st Contact Info) Description 08/15/2023 Telephone [facility] MEDICINE [address] [place], [place] [phone] [facility] [address] [place] [address] Nurse Triage Social History Tobacco Use Types [...] blood sugars were WNL. Pt went to [facility] ED 08/14/23 in the evening due to [...] past 3 days, pt was seen at [facility] on 08/14 for nausea/vomiting. Pt has not eaten in 28 hours. The caller accepted this outcome Please contact pt at [phone] documented in this encounter Plan of Treatment Not on file documented as of this encounter Visit Diagnoses Not on filedocumented in this encounter Additional Health Concerns Assessment Noted Time PHQ-9 Depression Total Score: 24 023 10:42 AM EST documented as of this encounter Care Teams Thermoscrew Operator Relationship Specialty Start Date End Date Leanne Alcazar FNP [address] [place] [address] PCP - General Family Medicine 12/13/21 documented as of this encounter
--- OUTSIDE RECORDS SUMMARY | 2024-06-25 14:56 | XMS_ITS | Clinical Summary ---
Author Organization [employer] Address [address] [facility] 7t [place] [address] Care Team Providers Care Before School Name Role Phone Leanne Alcazar LAB HEAD Primary Care Provider [phone] Allergies No known active allergies Medications * [...] 2 Active Blood Glucose Monitoring Suppl (FreeStyle [place] Lite) w/Device kit TEST BLOOD SUGAR ONE OR TWO TIMES DAILY DIRECTED 2 Active TRUEplus Lancets 33G miscIndications:T ype 2 diabetes mellitus with hyperglycemia, without long-term current use of insulin ([facility]) TEST BLOOD SUGAR 4 times daily 120 each 1 3 Active glucose blood test stripIndications: Type 2 diabetes mellitus with hyperglycemia, without long-term current use of insulin ([facility]) Use as directed to check blood sugar four times daily 100 each 12 3 Active Continuous Glucose Marketing Trainee (FreeStyle [address] [place]) deviceIndications :Type 2 diabetes mellitus with hyperglycemia, without long-term current use of insulin ([facility]) Scan sensor every 8 hours 1 each 4 Active empagliflozin (Jardiance) 10 MG Take 1 tablet (10 mg) by mouth Once per day. 30 tablet 11 4 08/16/19 25 Active glucose 4 g chewable tabletIndications :Type 2 diabetes mellitus with hypoglycemia without coma, without long-term current use of insulin ([facility]) Chew 4 tablets (16 g) [...] Active insulin pen needle (Sure Comfort Pen [place]) 31G x 5 mm miscIndications:T ype 2 [...] appointment Acute kidney injury superimposed on CKD ([facility] ) 03/02/2024 Assessment & Plan (03/02/2024 2:17 PM EST): Drink plenty of water Avoid nephrotoxic medication Work on glucose and blood pressure control 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 with estate conservator 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 2 diabetes mellitus ([facility]) 12/02/2023 Assessment & Plan (03/02/2024 [...] RPR negative 12/2021 ?? Vision Exam: 12/2021, farner ?? Dental Care: Discuss at follow up [...] 08/2022 Risk 0 Eye Exam: Referred to [facility]; followed by outside retinal [...] morning FBG < 130 ?? Referral to [facility] DM educator Assessment & Plan (11/18/2022 [...] follow up Eye Exam: 12/2021, completed in [place] Lipid panel: 12/2021 WNL, order repeat at [...] of SI or self harm. Pt has [facility] crisis contact information Assessment & Plan (11/18/2022 12:46 PM EDT): ?? STOP sertraline due to s/e ?? Declines N referral ?? Contact HC if sx worsen or experiencing thoughts of SI or self harm. Pt has [facility] crisis contact information Assessment & Plan [...] Encounters Date Type Department Care Team Description 06/06/2024 Orders Only GENERIC EXTERNAL DATA DEPARTMENT Provider, Generic External Data 05/15/2024 Population Health Risk Score [facility] () Department [address] [place] [address], [place] [address] Provider, Population Health Generic 05/13/2024 Telephone [facility] [address] [facility] [place] [address] [employer] No Show 04/10/2024 Refill [facility] [address] [facility] [place] [address] [employer] Type 2 diabetes mellitus with hyperglycemia, without long-term current use of insulin ([facility]) 04/03/2024 Telephone [facility] [address] [place] [address] [employer] chart prep 04/02/2024 Orders Only GENERIC EXTERNAL DATA DEPARTMENT Provider, Generic External Data 03/30/2024 Refill [facility] [address] [facility] [place], [place] [phone] Irma Jensen MD Nausea; Epigastric pain from Last 3 Months Immunizations Name Administration [...] MMR 11/10/2013,10/26/1998,07/31/1994 Meningococcal MCV4P ACYW-135 01/15/2007 Novel Amtlouwsy-B1I3-53, all formulations 01/17/2009 Pfizer Covid-19 Vaccine 12+ [...] Associated Diagnosis Comments BASIC METABOLIC PANEL Routine 06/06/2024 12:39 AM EDT GLUCOSE, WHOLE BLOOD Routine 04/02/2024 2:59 PM EST HEMOGLOBIN A1C Routine 03/16/2024 4:20 PM EST LIPID PANEL, STANDARD Routine 07/26/2022 12:08 PM EDT Type 2 diabetes mellitus with hyperglycemia, without long-term current use of insulin ([facility]) ZZZ HISTORICAL HEPATITIS C AB W/REFL TO HCV RNA, QN, PCR Routine 12/13/2021 11:51 AM EDT HIV 1/2 ANTIGEN/ANTIBODY, FOURTH GENERATION W/RFL Routine 12/13/2021 11:51 AM EDT from Last 3 Months or Most Recently Relevant to Health Maintenance Results * (ABNORMAL) Basic Metabolic Panel (06/06/2024 12:39 AM EDT) Sodium 139 135 - 145 mmol/L [facility] Potassium 3.5 3.3 - 5.1 mmol/L [facility] Chloride 104 96 - 108 mmol/L [facility] Carbon Dioxide 23 22 - 29 mmol/L [facility] Anion Gap 16 12 - 20 [facility] Urea Nitrogen (BUN) 36(H) 9 - 16 mg/dL [facility] Creatinine, Serum 1.83(H) 0.5 - 1.4 mg/dL [facility] Creatinine Clr Calc Pharmacy 66.6 [facility] Comment:eGFR (calculated fro m the MDRD study equation) and eCrCl(calculated from the Cockcroft-Gault equation) are based ondifferent parameters and may not yield comparable results.If eCrCl result is absurd, please check patient'sheight/weight. Estimated Glomerular Filt Rate 43 [facility] Comment:Chronic Kidney Disea se: Estimated GFR < 60 mL/min/1.09z7Fqqatd Kidney Disease: Estimated GFR < 15 mL/min/1.73m2 Glucose 134(H) 60 - 115 mg/dL [facility] Calcium 8.3(L) 8.4 - 10.2 mg/dL [facility] 06/06/2024 12:3 9 AM EDT 06/06/2024 12:43 AM EDT us Generic External Data Provider LAB BLOOD ORDERAB LES Final Result Performing Organization Address City/State/[facility] Co de Phone Number [facility] [address] [place] [phone] * (ABNORMAL) Glucose, Whole Blood (04/02/2024 2:59 PM EST) Glucose, Whole Blood 194(H) 60 - 115 mg/dL [facility] Comment:METER #: [id number] 5Testing performed in the Endocrinology Department [address] , [address], [facility]. 04/02/2024 2:59 PM EST 04/02/2024 3:03 PM EST Generic External Data Provider LAB BLOOD ORDERAB LES Final Result Performing Organization Address [facility]/Va Hospital/ZIP Co de Phone Number [facility] [address] [place] [phone] * (ABNORMAL) Hemoglobin A1c (03/16/2024 4:20 PM EST) Hemoglobin A1c 6.8(H) <6.0 % [facility] Comment:Hemoglobin A1C Refer ence Range Adults: 4.8 - 6.0 % Non diabetic: < 6.0 % Goal: < 7.0 %Additional Action Suggested: > 8.0 %Note: Hemoglobin A1c results are invalid for patients with abnormal amounts of HbF. Blood transfusions may impact the HbA1c concentration in the patient sample. Estimated Average Glucose 148 mg/dL [facility] Comment:eAG = Estimated ave rage glucose which is %A1C expressed asaverage glucose, using the formula of the F4R-OaaezjnPslrbdn Glucose study (ADAG), Diabetes Care, Vol.31,#8,Oct. 2007 03/16/2024 4:20 PM EST 03/16/2024 4:20 PM EST [employer] External Data Provider LAB BLOOD ORDERAB LES Final Result Performing Organization Address [facility] Co de Phone Number [facility] [address] [place] [phone] * Lipid Panel, Standard (07/26/2022 12:08 PM EDT) Cholesterol, Total 169 <200 mg/dL [facility] [place] [facility] HDL Cholesterol 53 > OR = 40 mg/dL [facility] [place] [facility] Triglycerides 103 <150 mg/dL [facility] [place] [facility] LDL Cholesterol 96 mg/dL (calc) [facility] [place] [facility] Comment: Reference range: <100 Desirable range <100 mg/dL for primary prevention; ?? <70 mg/dL for patients with CHD or diabetic patients with > or = 2 CHD risk factors. LDL-C is now calculated using the Cristo-Gonzalez calculation, which is a validated novel method providing better accuracy than the Friedewald equation in the estimation of LDL-C. Cristo SS et al. ROSIO. 2013;310(19): 1142-5765 (http://Cloud.[employer]/faq/RZI995) Chol/HDLC Ratio 3.2 <5.0 (calc) [facility] Non-HDL Cholesterol 116 <130 mg/dL (calc) [facility] [place] [facility] Comment: For patients with diabetes plus 1 major ASCVD risk factor, treating to a non-HDL-C goal of <100 mg/dL (LDL-C of <70 mg/dL) is considered a therapeutic option. Blood Venous blood specimen / Unknown 07/26/2022 12:08 PM EDT 07/26/2022 12:08 PM EDT Narrative [facility] - 07/27/2022 6:10 AM EDT FASTING:YES FASTING: YES [facility] LAB BLOOD ORDERABLES Final Re sult [facility] [address], [place] [address] [facility] [place] [facility] [address] [place] [address] * HEPATITIS C AB W/REFL TO HCV [...] a test for HCV RNA (test code 86823) is suggested. ?? For additional information please refer to http://education.[employer]/faq/IFE34e4 (This link is being provided for informational/ educational purposes only.) ?? 12/13/2021 11:5 1 AM EDT us Leanne [place] [facility] HEAD HISTORICAL/NON ORDERABLE LABS Final Result CONVERTED LEGACY [...] ? For additional information please refer to http://education.[employer]/faq/ZQS599 (This link is being provided for informational/ educational purposes only.) ? The performance of this assay has not been clinically validated in patients less than 2 years old. ?? 12/13/2021 11:5 1 AM EDT [facility] LAB HEAD LAB BLOOD ORDERABLES Final Re sult Performing Organization Address City/[facility] Hospital/ZIP Co de Phone Number CONVERTED LEGACY LABS from Last 3 Months or Most Recently Relevant to Health Maintenance [facility] * Guarantor: Tristen Boateng Account Type Relation to Patient Date of Phone Billing Address Personal/Family Self [address] [place] [address] Care Teams Before School Relationship Specialty Start Date End Date Leanne Alcazar FNP [address] [place] [phone] PCP - General Family Medicine 12/13/21
--- OUTSIDE RECORDS SUMMARY | 2024-06-25 14:56 | XMS_ITS | Clinical Summary ---
Author Organization [facility] Address [address] [place] [address] Phone Care Team Providers Care Medical Bill Processor Name Role Phone Unavailable Primary Care Provider [...]
--- OUTSIDE RECORDS SUMMARY | 2024-06-25 14:56 | XMS_ITS | Encounter Summary ---
Author Organization [facility] Address [address] [place] [address] Phone Care Team Providers Care Kiln Burner Name Role Phone Tete Sutherland MD Primary Care Provider Encounter Details Date Type Department Care Team (Late st Contact Info) Description 02/04/2014 Documentation [facility] [place] [address] [place] [address] Family Medicine, Physician [address] [place], [place] [phone] Social History Tobacco Use Types Packs/Day Years [...] on filedocumented in this encounter Care Teams Kiln Burner Relationship Specialty Start Date End Date Tete Sutherland MD [address] [place] [address] [place] [address] PCP - General 10/12/16 08/27/22 documented as of this encounter
--- OUTSIDE RECORDS SUMMARY | 2024-06-25 14:56 | XMS_ITS | Encounter Summary ---
Author Organization [facility] Address [address] [place] [address] Phone Care Team Providers Care Installment Account Checker Name Role Phone Tete Sutherland MD Primary Care Provider Encounter Details Date Type Department Care Team (Late st Contact Info) Description 05/26/2014 [place] [facility] [place] [address] [place] [address] Family Medicine, Physician [address] [place], [place] [phone] Social History Tobacco Use Types Packs/Day Years [...] on filedocumented in this encounter Care Teams Installment Account Checker Relationship Specialty Start Date End Date Tete Sutherland MD [address] [place] [address] [place] [address] PCP - General 10/12/16 08/27/22 documented as of this encounter
--- OUTSIDE RECORDS SUMMARY | 2024-06-25 14:56 | XMS_ITS | Encounter Summary ---
Author Organization [employer] Address [address] [facility] [address]t [place] [address] Care Team Providers Care Alum Plant Supervisor Name Role Phone Ottoniel [facility] Primary Care Provider [phone] Reason for Visit * Reason Onset Date Comments F 05/21/2022 Encounter Details Date Type Department Care Team ([facility] st Contact Info) Description 05/21/2022 Telephone [facility] [address] [place], [place] [phone] [facility] [address] [place] [address] [facility] Social History Tobacco Use Types Packs/Day [...] HDF F/U (no symptoms) Patient hospitalized at [facility]. Patient was admitted on 05/20/2022 and discharged on 05/21/2022. The patient was diagnosed with Virus. Patient advised will forward to [facility] Clinical Coordinators for follow up and appointment scheduling. Please contact Pt at [phone] documented in this encounter Plan of Treatment Not on file documented as of this encounter Visit Diagnoses Not on filedocumented in this encounter Care Teams Alum Plant Supervisor Relationship Specialty Start Date End Date Leanne Alcazar FNP [address] [place] [address] PCP - General Family Medicine 12/13/21 documented as of this encounter
--- OUTSIDE RECORDS SUMMARY | 2024-06-25 14:56 | XMS_ITS | Encounter Summary ---
Author Organization [facility] Address [address] [place] [address] Phone Care Team Providers Care Voucher Clerk Name Role Phone Tete Sutherland MD Primary Care Provider Encounter Details Date Type Department Care Team (Late st Contact Info) Description 11/13/2012 Documentation [facility] [place] Family Medicine [address] [place] [address] Family Medicine, Physician [address] [place], [place] [phone] Social History Tobacco Use Types Packs/Day Years [...] on filedocumented in this encounter Care Teams Voucher Clerk Relationship Specialty Start Date End Date Tete Sutherland MD [address] [place] [address] [place] [address] PCP - General 10/12/16 08/27/22 documented as of this encounter
--- OUTSIDE RECORDS SUMMARY | 2024-06-25 14:56 | XMS_ITS | Encounter Summary ---
Author Organization [facility] Address [address] [place] [address] Phone Care Team Providers Care Patent Law Specialist Name Role Phone Tete Sutherland MD Primary Care Provider Encounter Details Date Type Department Care Team (Late st Contact Info) Description 01/29/2012 Documentation [facility] [place] Medicine [address] [place] [address] Family Medicine, Physician [address] [place], [place] [phone] Social History Tobacco Use Types Packs/Day Years [...] on filedocumented in this encounter Care Teams Patent Law Specialist Relationship Specialty Start Date End Date Tete Sutherland MD [address] [place] [address] SUL[place] Narayan [address] PCP - General 10/12/16 08/27/22 documented as of this encounter
--- OUTSIDE RECORDS SUMMARY | 2024-06-25 14:56 | XMS_ITS | Encounter Summary ---
Author Organization [facility] Address [address] [place] [phone] Phone Care Team Providers Care Dispatcher Chief Oil Name Role Phone Tete Sutherland MD Primary Care Provider Encounter Details Date Type Department Care Team (Late st Contact Info) Description 10/21/2012 [place]ation [facility] [place] [address] [place] [address] Family Medicine, Physician [address] [place], [place] [phone] Social History Tobacco Use Types Packs/Day Years [...] on filedocumented in this encounter Care Teams Dispatcher Chief Oil Relationship Specialty Start Date End Date Tete Sutherland MD [address] [place] [address] [place] [address] PCP - General 10/12/16 08/27/22 documented as of this encounter
--- OUTSIDE RECORDS SUMMARY | 2024-06-25 14:56 | XMS_ITS | Encounter Summary ---
Author Organization [facility] Address [address] [place] [address] Phone Care Team Providers Care Feeder Tender Name Role Phone Tete Sutherland MD Primary Care Provider Encounter Details Date Type Department Care Team (Late st Contact Info) Description 10/22/2012 [place]ation [facility] [place] [address] [place] [address] Family Medicine, Physician [address] [place], [place] [phone] Social History Tobacco Use Types Packs/Day Years [...] on filedocumented in this encounter Care Teams Feeder Tender Relationship Specialty Start Date End Date Tete Sutherland MD [address] [place] [address] [place] [address] PCP - General 10/12/16 08/27/22 documented as of this encounter
--- OUTSIDE RECORDS SUMMARY | 2024-06-25 14:56 | XMS_ITS | Encounter Summary ---
Author Organization [facility] Address [address] [place] [address] Phone Care Team Providers Care Health Companion Name Role Phone Tete Sutherland MD Primary Care Provider Encounter Details Date Type Department Care Team (Late st Contact Info) Description 10/18/2016 Conversion Encounter [facility] [place] [address] [place] [address] Social History Tobacco Use Types Packs/Day Years [...] on filedocumented in this encounter Care Teams Health Companion Relationship Specialty Start Date End Date Tete Sutherland MD [address] [place] [address] PCP - General 10/12/16 08/27/22 documented as of this encounter
--- OUTSIDE RECORDS SUMMARY | 2024-06-25 14:56 | XMS_ITS | Encounter Summary ---
Author Organization [facility] Address [address] [place] [address] Phone Care Team Providers Care Service Delivery Supervisor Name Role Phone Tete Sutherland MD Primary Care Provider Encounter Details Date Type Department Care Team (Late st Contact Info) Description 07/21/2012 Documentation [facility] [place] [address] [place] [address] Family Medicine, Physician [address] [place], [place] [phone] Social History Tobacco Use Types Packs/Day Years [...] on filedocumented in this encounter Care Teams Service Delivery Supervisor Relationship Specialty Start Date End Date Tete Sutherland MD [address] [place] [address] [place] [address] PCP - General 10/12/16 08/27/22 documented as of this encounter
--- OUTSIDE RECORDS SUMMARY | 2024-06-25 14:56 | XMS_ITS | Encounter Summary ---
Author Organization [facility] Address [address] [place] [address] Phone Care Team Providers Care Internal Sales Engineer Name Role Phone Tete Sutherland MD Primary Care Provider Encounter Details Date Type Department Care Team (Late st Contact Info) Description 08/05/2009 Documentation [facility] [place] [address] [place] [address] Family Medicine, Physician [address] [place], [place] [phone] Social History Tobacco Use Types Packs/Day Years [...] on filedocumented in this encounter Care Teams Internal Sales Engineer Relationship Specialty Start Date End Date Tete Sutherland MD [address] [place] [address] [place] Narayan [address] PCP - General 10/12/16 08/27/22 documented as of this encounter
--- OUTSIDE RECORDS SUMMARY | 2024-06-25 14:56 | XMS_ITS | Encounter Summary ---
Author Organization [facility] Address [address] [place] [address] Phone Care Team Providers Care Pvc Monitor Name Role Phone Tete Sutherland MD Primary Care Provider Encounter Details Date Type Department Care Team (Late st Contact Info) Description 04/08/2014 Documentation [facility] [place] [address] [place] [address] Family Medicine, Physician [address] [place], [place] [phone] Social History Tobacco Use Types Packs/Day Years [...] on filedocumented in this encounter Care Teams Pvc Monitor Relationship Specialty Start Date End Date Tete Sutherland MD [address] [place] [address] [place] [address] PCP - General 10/12/16 08/27/22 documented as of this encounter
[2024-06-25 16:32] LABS: Appearance Urine Clear; Color Urine Yellow; Glucose Urine UA >=1000 mg/dL (Negative); Leukocyte Esterase Urine Negative (Negative); Nitrite Urine Negative (Negative); PH 5.5 (5.0-9.0); UMIC TRIGGER UA YES; Urine Blood Moderate (2+) (Negative); Urine Ketones Negative (Negative); Urine Protein 300 (3+) mg/dL (Neg-Trace)
[2024-06-25 16:33] LABS: Anion Gap 12 (12-20)
[2024-06-25 16:35] LABS: Bacteria Urine None Seen (None Seen); Hyaline Casts Urine 0-2 /LPF (0-2); Squamous Epithelial Cell Urine 0-2 /HPF (0-2); WBC Urine 0-5 /HPF (0-5)
[2024-06-25 16:36] LABS: Alanine Aminotransferase 19 U/L (0-40); Albumin Level 3.9 g/dL (3.5-5.0); Aspartate Amino Transferase 19 U/L (5-37); Bilirubin Direct 0.2 mg/dL (0.0-0.5); Bilirubin Total 0.9 mg/dL (0.0-1.0); Blood Urea Nitrogen 31 mg/dL (9-16); Calcium 9.1 mg/dL (8.4-10.2); Carbon Dioxide 24 mmol/L (22-29); Chloride 105 mmol/L (96-108); Cholesterol 139 mg/dL (<200); Estimated Glomerular Filt Rate 44; Glucose Random 243 mg/dL (60-115); HDL Cholesterol 42 mg/dL (>40); LDL Cholesterol Calculated 64 mg/dL (<100); Potassium 4.6 mmol/L (3.3-5.1); Sodium 136 mmol/L (135-145); Total Protein 6.6 g/dL (6.5-8.0); Triglycerides 167 mg/dL (<150)
[2024-06-25 16:38] LABS: Anion Gap 13 (12-20); Blood Urea Nitrogen 31 mg/dL (9-16); Calcium 9.1 mg/dL (8.4-10.2); Carbon Dioxide 23 mmol/L (22-29); Chloride 105 mmol/L (96-108); Cholesterol 140 mg/dL (<200); Estimated Glomerular Filt Rate 44; Glucose Random 242 mg/dL (60-115); HDL Cholesterol 42 mg/dL (>40); LDL Cholesterol Calculated 65 mg/dL (<100); Potassium 4.7 mmol/L (3.3-5.1); Sodium 136 mmol/L (135-145); Triglycerides 166 mg/dL (<150)
[2024-06-25 16:44] LABS: Alkaline Phosphatase 99 U/L (39-117)
[2024-06-25 16:54] LABS: Creatinine Urine 122.62 mg/dL
[2024-06-25 17:23] LABS: Protein/Creatinine Ratio, Ur 3.29 (<0.2); Total Protein Urine Random 403 mg/dL (<12)
[2024-06-26 21:52] LABS: Anti DNA DS Antibody <1 IU/mL; Anti Glomerular Basement Memb <1.0 AI
[2024-06-27 17:08] LABS: Complement C3 96 mg/dL (82-185)
== END ==
LOC: HO.CARD 12:43
PROVIDERS: Family Medicine; Internal Medicine; Nurse Practitioner Family; Absent Provider Internal Medicine Hypertension Specialist; PCP Registered Nurse; Visit Provider Internal Medicine Cardiovascular Disease
DX: I42.9 Cardiomyopathy, unspecified (principal); I12.9 Hypertensive chronic kidney disease with stage 1 through stage 4 chronic kidney disease, or unspecified chronic kidney disease; E11.22 Type 2 diabetes mellitus with diabetic chronic kidney disease; N18.2 Chronic kidney disease, stage 2 (mild); N17.9 Acute kidney failure, unspecified; E11.21 Type 2 diabetes mellitus with diabetic nephropathy; R07.9 Chest pain, unspecified; Z79.899 Other long term (current) drug therapy
CPT/HCPCS: 36415; 80048; 80053; 80061; 81001; 82248; 82570; 83520; 84156; 84165; 86036; 86160; 86225; 86255; 86341; 93306

== ENCOUNTER → 2024-06-25 12:45 | Outpatient (BNV) | payer MEDICAID, SELFPAY | PROVIDERS: Absent Provider Internal Medicine Hypertension Specialist; PCP Registered Nurse; Visit Provider Internal Medicine | DX: I42.8 Other cardiomyopathies (principal) | CPT/HCPCS: 93306; 93356 ==

== ENCOUNTER 2024-07-02 10:53 | Inpatient (IN) | payer MEDICAID, SELFPAY ==
[2024-07-02] VITALS (10 sets, daily range): BP systolic 146–182; BP diastolic 70–105; PULSE 87–112; RESP 16–20; TEMP 36.8–36.9; O2SAT 97–100; BMI 34.5
--- NOTE | ~2024-07-02 | CT_ITS ---
CLINICAL HISTORY: epigastric pain N V white count CT abdomen and pelvis without contrast Comparison: CT/SR - CT ABDOMEN PELVIS W IV CON - 05/20/22 13:42 EDT Findings: The lung bases are clear. Borderline dilatation of the bilateral renal collecting systems. No renal or ureteral calculus. Unremarkable liver, spleen, pancreas and adrenal glands. Mild debris within the gallbladder. No biliary dilatation. The stomach is poorly distended. There is no evidence of bowel edema or dilatation. There is moderate distention of the urinary bladder. Unremarkable prostate. Appendix not definitively seen. No secondary findings to suggest appendicitis. The bones are intact. IMPRESSION: 1. Moderate distention of the urinary bladder. 2. Borderline dilatation of the renal collecting systems. This may be on the basis of bladder distention. Correlate with urinalysis. 3. There is mild debris within the gallbladder. This may represent sludge or tiny gallstones. Consider further evaluation with ultrasound if indicated. This document has been electronically signed by: Jolie Vela MD on 07/02/2024 17:17:51
--- NOTE | ~2024-07-02 | NM_ITS ---
EXAMINATION: Nuclear medicine hepatobiliary without pharmaceutical drug. CLINICAL INDICATIONS: Abdominal pain. Gallbladder sludge. COMPARISON: Ultrasound abdomen limited 07/02/2024. TECHNIQUE: Following intravenous administration of 5 mCi of technetium 99m mebrofenin, imaging over right upper quadrant was obtained up to 60 minutes. FINDINGS: There is normal hepatic uptake with no focal defects seen. There is prompt visualization of gallbladder by 22 minutes. CBD is visualized by 26 minutes. Small bowel is visualized by 20 minutes. NM/NM hepatobiliary wo pharm IMPRESSION: Normal hepatic uptake. Patent cystic duct. Patent CBD. Electronically signed by: Jonny Linares MD 07/03/2024 01:09 PM EDT
--- NOTE | ~2024-07-02 | XR_ITS ---
CLINICAL HISTORY: fever 1 view chest x-ray Comparison: 03/13/2024 Findings: Portions of the exam are obscured by overlying material. The lungs are clear. Heart size is normal. No acute fracture. IMPRESSION: 1. No acute findings. This document has been electronically signed by: David Ruiz MD on 07/02/2024 21:16:31
--- NOTE | ~2024-07-02 | US_ITS ---
CLINICAL HISTORY: epigastric pain ?sludge on CT --- Additional Notes or Special Instructions: look at GB, ducts, pancreas, liver US abdomen limited Comparison: Abdominopelvic CT 07/02/2024, 05/20/2022 Findings: The visualized pancreas is normal. The aorta and inferior vena cava are normal caliber. The appearance of the liver suggests fatty infiltration without focal lesion. There is no intrahepatic bile duct dilatation. The common duct is 4.0 mm in diameter. There is trace amount of gallbladder sludge. The gallbladder is otherwise normal. There is no sonographic Lima sign. The main portal vein is antegrade. The right kidney is partially visualized. No ascites. IMPRESSION: 1. Minimal gallbladder sludge. 2. Hepatic steatosis. This document has been electronically signed by: David Ruiz MD on 07/02/2024 18:57:22
--- NOTE | 2024-07-02 11:09 | ECG_ITS ---
Test Reason : epigastric pain Blood Pressure : */* mmHG Vent. Rate : 96 BPM Atrial Rate : 96 BPM P-R Int : 140 ms QRS Dur : 94 ms QT Int : 350 ms P-R-T Axes : 73 41 82 degrees QTcB Int : 442 ms Normal sinus rhythm Normal ECG When compared with ECG of 13-Mar-2024 12:09, No significant change was found Referred By: Damien Thompson Electronically Signed By: Marcus Valdes
--- NOTE | 2024-07-02 11:12 | ED.GENADULT ---
HPI - General Adult General Chief complaint: Abdominal Pain Stated complaint: NAUSEA VOMITING X24HR ACID REFLUX Time Seen by Provider: 07/02/24 15:30 Source: patient, EMS, RN notes reviewed and old records reviewed Mode of arrival: EMS Limitations: no limitations History of Present Illness ED Provider: CYNDI STUBBS PA-C HPI narrative: 29-year-old male with pmhx significant for type 2 diabetes, GERD, cannabinoid hyperemesis, diabetic nephropathy, left eye blindness, CKD, HTN presents for evaluation of epigastric pain x 24 hours. Patient also reports nausea and vomiting with a burning sensation that radiates up midline after episodes of vomiting. Patient has trialed tums, peptol bismol, and zofran with no relief. Last episode of emesis was in the waiting room of the ED. Last PO intake was 2 days ago. Patient reports not taking BP medication in 2 days due to nausea/vomiting. Also admits to poor insulin compliance. Admits to daily marijuana use. Denies cough, SOB, palpitations, urinary symptoms. Related Data Home Medications ?Medication ?Instructions ?Recorded ?Confirmed empagliflozin 10 mg tablet 10 mg PO DAILY 10/29/23 03/31/24 (Jardiance) carvedilol 25 mg tablet 25 mg PO BID 02/06/24 03/31/24 amlodipine 10 mg tablet 10 mg PO DAILY 02/25/24 03/31/24 escitalopram oxalate 10 mg tablet 10 mg PO DAILY 02/25/24 03/31/24 pantoprazole 40 mg tablet,delayed 40 mg PO QAM 03/16/24 03/31/24 release glucose 4 gram chewable tablet 16 g PO diabetes mellitus 04/02/24 Previous Rx's ?Medication ?Instructions ?Recorded losartan 50 mg tablet 50 mg PO DAILY #30 tabs 03/03/24 insulin glargine 100 unit/mL (3 20 unit (0.2 mL) subcut BEDTIME 04/02/24 mL) subcutaneous pen (Lantus #15 mL Solostar U-100 Insulin) famotidine 20 mg tablet 20 mg PO BEDTIME #30 tabs 06/08/24 atorvastatin 40 mg tablet 40 mg PO BEDTIME #90 tabs 06/09/24 Allergies Allergy/AdvReac Type Severity Reaction Status Date / Time No Known Allergies Allergy Verified 07/02/24 11:08 [No Known Allergies*] Review of Systems Review of Systems: Yes all other systems are reviewed and are negative [facility] Past Medical History Attestation statement: The following information was validated with the patient. Source: old records reviewed and nursing notes reviewed Medical History Cannabis hyperemesis syndrome concurrent with and due to cannabis dependence Cannabis use disorder Hypertension Anxiety Chest pain ADHD Generalized anxiety disorder Type 2 diabetes mellitus Hypertension Surgical History [place] teeth extracted History of appendectomy History of eye surgery (~06/2022) Family History Family History Father HTN (hypertension) Mother Arthritis Sister Lupus (systemic lupus erythematosus) Social History Social History Household Members: Family Housing: Apartment Do you presently have visiting nurse or other home services: No Alcohol intake: former Patient Tobacco Use Status: Never used Tobacco Smoked in Last 30 Days: No e-Cigarette/Vaping Use: Never Used Second Hand Smoke Exposure: No (N/A) Use of substances other than those prescribed or required for medical reasons: Yes Substance Use Type: Marijuana Advance Directives: Yes Advance Directives on File: Yes Advance Directives Date on File: 11/01/23 Do you have a plan to hurt others: No Plan Nutrition Risks: No Nutritional Risk service: No Physical Exam ED Vital Signs: Vital Signs - 24 hr 07/02/24 11:06 07/02/24 15:31 07/02/24 16:24 Temperature 98.4 F 98.2 F Pulse Rate 110 H 100 100 Respiratory Rate 20 18 17 Blood Pressure 180/98 H 171/94 H Pulse Oximetry 100 98 97 Oxygen Delivery Method Room Air Room Air 07/02/24 17:56 07/02/24 18:22 07/02/24 18:45 Temperature 98.3 F Pulse Rate 102 H 95 109 H Respiratory Rate 16 16 20 Blood Pressure 182/89 H 146/70 H 167/89 H Pulse Oximetry 98 98 Oxygen Delivery Method Room Air Room Air 07/02/24 18:47 07/02/24 20:52 07/02/24 21:05 Temperature 98.3 F Pulse Rate 94 87 Respiratory Rate 18 17 Blood Pressure 175/88 H 148/80 H Pulse Oximetry 98 97 97 Oxygen Delivery Method Room Air Room Air BMI result Body Mass Index 34.5 Afebrile. Hypertensive to 180/98 mmHg. tachycardic to 110 bmp. General: appears lethargic however arousable to verbal stimuli, pale Skin: Warm, dry, intact. No rashes or lesions. Head: Normocephalic, atraumatic. EENT: Hearing is intact b/l. Conjunctiva clear. Sclera is anicteric. PERRLA. Dry mucous membranes.? Neck: Supple without LAD.? Cardiac: Chest wall symmetric. RRR. Lungs: Normal respiratory effort without accessory muscle use. CTA bilaterally? Abdomen: +soft, nondistended, tender to palpation of epigastric region without rebound tenderness or guarding. negative gutierrez sign. active BS x4. Ext: Upper and lower extremities atraumatic, without tenderness, deformity, swelling or erythema. Neuro: AOx3. Normal speech. Course Course Course Narrative: RME: 29-year-old male history diabetes acid reflux presents to ED for epigastric pain and acid reflux. Patient describes pain as acid burning. Patient is not taking his PPI. Zofran given at EMS. POC ordered labs EKG and troponin. Reevaluation(s) Reevaluation #1: 1718 -- CBC with leukocytosis to 11.7 with left shift. Normocytic anemia, H & H stable when compared to priors and above transfusion threshold. VBG showing pH of 7.54, otherwise WNL. Chemistry showing mild hyponatremia to 134 likely secondary to hyperglycemia. Chloride 91. Random glucose 301, repeat 282 prior to treatment. Acute on chronic kidney injury with BUN 44 and creatinine 2.40 likely secondary to hypovolemia/ volume loss. Total bili 1.4, LFTs otherwise WNL. Noted to have hyperbilirubinemia on previous labs. Triglycerides elevated to 320. Beta hydroxybutyrate 4.71. Troponin WNL x2. ekg showing normal sinus rhythm without ST elevation or ischemic changes. > IV fluids and insulin ordered. morphine ordered for pain control. Reglan + Benadryl ordered for N/V with good affect. Plan to repeat labs and re-evaluate. 7602 -- CT abdomen/pelvis showing borderline dilation of the bilateral renal collecting systems without noted renal or ureteral calculi. Mild debris within the gallbladder question sludge versus tiny gallstones. Recommending ultrasound. Appendix is not definitively seen - he is status post appendectomy. No evidence of bowel edema or dilation. > given epigastric abdominal pain, nausea and vomiting > right upper quadrant ultrasound ordered to rule out biliary pathology. 1800 -- patient stable at the end of my shift. sign out given to Valorie ORTIZ pending UA, ultrasound, repeat CMP/beta hydroxy and disposition. Reevaluation #2: I Bety So PA-C have accepted care of the patient and signed out pending labs imaging and final disposition Ultrasound of the gallbladder coming back it was unremarkable, on CT scan, there maybe evidence of pyelonephritis. Urine just being collected. We will be repeating his labs once his IV fluid resuscitation is complete. It appears he is likely not in DKA. I checked a rectal temperature, it was 99. Not a fever,, he may be developing 1. We will add blood cultures and lactic. We will add additional studies to determine if he has anything else infectious, adding viral panel and chest x-ray I have independently reviewed the following tests: 2.2, the 2nd is increased to 3.2 Chest x-ray: indings: Portions of the exam are obscured by overlying material. The lungs are clear. Heart size is normal. No acute fracture. IMPRESSION: 1. No acute findings. Patient is still nauseous and vomiting adding Zofran we will be admitting, given CT findings with the urine sample, I am calling it pyelonephritis Medications Administered Generic Name Dose Route Start Last Admin Trade Name Freq PRN Reason Stop Dose Admin Heparin Sodium (Porcine) 5,000 unit 07/03/24 00:00 07/03/24 00:39 Heparin Sodium,Porcine 5,000 Unit/Ml Vial SUBCUT 5,000 unit Q8H PRIYANKA Administration Hydromorphone HCl 0.5 mg 07/02/24 23:54 07/03/24 00:39 Hydromorphone Hcl 0.5 Mg/0.5 Ml Syringe IVPUSH 0.5 mg Q4H PRN Administration Pain, Severe (Pain Scale 7-10) Protocol Sodium Chloride 1,000 mls @ 100 mls/hr 07/02/24 23:45 07/03/24 00:40 Ns IVCONT 100 mls/hr .Q10H PRIYANKA Administration Insulin Human Lispro 0 unit 07/03/24 00:30 07/03/24 07:47 Insulin Lispro 100 Unit/Ml 3 Ml Vial SUBCUT Not Given Q6H PRIYANKA Protocol Ondansetron HCl 4 mg 07/02/24 23:54 07/03/24 03:27 Ondansetron Hcl 4 Mg/2 Ml Vial IVPUSH 4 mg Q8H PRN Administration Nausea and Vomiting Pantoprazole Sodium 40 mg 07/03/24 06:30 07/03/24 06:15 Pantoprazole Sodium 40 Mg/10 Ml Vial IVPUSH 40 mg BID@0630,1630 PRIYANKA Administration Sodium Chloride 3 ml 07/03/24 00:00 07/03/24 07:46 0.9 % Sodium Chloride Flush 3 Ml Syringe IVFLUSH Not Given QSHIFT PRIYANKA Discontinued Medications Generic Name Dose Route Start Last Admin Trade Name Freq PRN Reason Stop Dose Admin Ceftriaxone Sodium 2 gm 07/02/24 20:30 07/02/24 20:41 Ceftriaxone Sodium 2 Gm Vial IVPUSH 07/02/24 20:31 2 gm ONCE ONE Administration Diphenhydramine HCl 25 mg 07/02/24 15:47 07/02/24 16:03 Diphenhydramine Hcl 50 Mg/Ml Vial IVPUSH 07/02/24 15:48 25 mg ONCE ONE Administration Haloperidol Lactate 5 mg 07/03/24 04:11 07/03/24 04:42 Haloperidol Lactate 5 Mg/Ml Vial IM 07/03/24 04:12 5 mg ONCE ONE Administration Hydroxyzine HCl 50 mg 07/03/24 01:41 07/03/24 03:27 Hydroxyzine Hcl 50 Mg Tablet PO 07/03/24 01:42 50 mg ONCE ONE Administration Sodium Chloride 1,000 mls @ 999 mls/hr 07/02/24 15:45 07/02/24 17:34 Ns IV 07/02/24 16:45 Infused .Q1H1M PRIYANKA Infusion Lactated Ringer's 1,000 mls @ 999 mls/hr 07/02/24 16:00 07/02/24 17:17 Lr IV 07/02/24 17:00 Infused .Q1H1M PRIYANKA Infusion Lactated Ringer's 1,000 mls @ 999 mls/hr 07/02/24 18:45 07/02/24 20:42 Lr IV 07/02/24 19:45 Infused .Q1H1M PRIYANKA Infusion Sodium Chloride 500 mls @ 500 mls/hr 07/02/24 23:45 07/03/24 01:43 Ns IV 07/03/24 00:44 Infused .Q1H PRIYANKA Infusion Ibuprofen 600 mg 07/02/24 23:59 07/03/24 00:39 Ibuprofen 600 Mg Tablet PO 07/03/24 00:00 600 mg ONCE ONE Administration Insulin Human Regular 5 unit 07/02/24 15:47 07/02/24 16:15 Insulin Regular, Human 100 Unit/Ml 10 Ml Vial IVPUSH 07/02/24 15:48 5 unit ONCE ONE Administration Labetalol HCl 10 mg 07/03/24 04:18 07/03/24 05:15 Labetalol Hcl 100 Mg/20 Ml Vial IVPUSH 07/03/24 04:19 Not Given ONCE ONE Lidocaine HCl 15 ml 07/03/24 04:11 07/03/24 04:42 Lidocaine Hcl Viscous 2 % 15 Ml Solution [facility] 07/03/24 04:12 15 ml ONCE ONE Administration Metoclopramide HCl 10 mg 07/02/24 15:47 07/02/24 16:04 Metoclopramide Hcl 10 Mg/2 Ml Vial IVPUSH 07/02/24 15:48 10 mg ONCE ONE Administration Metoclopramide HCl 10 mg 07/03/24 04:11 07/03/24 04:42 Metoclopramide Hcl 10 Mg/2 Ml Vial IVPUSH 07/03/24 04:12 10 mg ONCE ONE Administration Morphine Sulfate 4 mg 07/02/24 17:15 07/02/24 17:28 Morphine Sulfate 4 Mg/Ml Cartridge IVPUSH 07/02/24 17:16 4 mg ONCE ONE Administration Protocol Morphine Sulfate 4 mg 07/02/24 19:26 07/02/24 19:37 Morphine Sulfate 4 Mg/Ml Cartridge IVPUSH 07/02/24 19:27 4 mg ONCE ONE Administration Protocol Ondansetron HCl 4 mg 07/02/24 21:37 07/02/24 21:44 Ondansetron Hcl 4 Mg/2 Ml Vial IVPUSH 07/02/24 21:38 4 mg ONCE ONE Administration Pantoprazole Sodium 40 mg 07/02/24 17:37 07/02/24 17:53 Pantoprazole Sodium 40 Mg/10 Ml Vial IVPUSH 07/02/24 17:38 40 mg ONCE ONE Administration Medical Decision Making Medical Decision Making [facility] Narrative: 29-year-old male with pmhx significant for type 2 diabetes, GERD, cannabinoid hyperemesis, diabetic nephropathy, left eye blindness, CKD, HTN presents for evaluation of epigastric pain x 24 hours. hypertensive to 180/98, tachycardic to 110. afebrile. he is ill appearing, pale. abdomen is obese, soft, nondistended, tender to palpation of epigastric region without rebound or guarding. Active bowel sounds x4. negative gutierrez sign. Differential diagnosis includes hyperglycemia, DKA, pancreatitis, biliary colic, gastroenteritis, gastritis, PUD, GERD. Abdominal exam without peritoneal signs. No evidence of acute abdomen at this time. Moderate suspicion for acute hepatobiliary disease (including acute cholecystitis). Less likely to represent perforated ulcer/ GI bleed, acute infectious processes (pneumonia, hepatitis, pyelonephritis), atypical appendicitis, vascular catastrophe, bowel obstruction or viscus perforation. Presentation not consistent with other acute, emergent causes of abdominal pain at this time. I have also considered ACS, arrhythmia, pneumonia. Labs, EKG, urinalysis ordered from triage. Will add on antiemetic, IV fluids, insulin, protonix, pain meds, imaging, VBG with re-evaluation. Differential Diagnosis Differential Diagnoses: The differential diagnosis associated with the presentation includes As above Admission/Observation Consideration of admission/observation: Escalation of care including admission/observation considered Lab Data [facility] Lab Attestation statement: I reviewed the patient's lab results. As above 07/03/24 06:40 07/03/24 06:40 Labs: Lab Results 07/02/24 07/02/24 07/02/24 Range/Units 11:38 15:45 16:01 WBC 11.7 H (4.8-10.8) X10*3/uL RBC 4.28 L (4.60-5.80) X10*6/uL Hgb 12.7 L (14.0-18.0) g/dl Hct 36.2 L (42.0-52.0) % MCV 84.6 (80.0-98.0) fL MCH 29.7 (27.0-33.0) pg MCHC 35.1 (31.0-36.0) g/dl RDW 12.0 (11.0-16.0) % Plt Count 248 (160-400) X10*3/uL MPV 10.0 (9.4-12.4) fL Immature Gran % (Auto) 0.4 (0.0-0.4) % Neut % (Auto) 86.7 H (45-73) % Lymph % (Auto) 8.5 L (20-40) % [place] % (Auto) 4.2 (2-11) % Eos % (Auto) 0.0 (0-4) % Baso % (Auto) 0.2 (0-2) % Lymph # (Auto) 1.0 L (1.2-4.9) X10*3/uL [place] # (Auto) 0.5 (0.1-1.2) X10*3/uL Eos # (Auto) 0.0 (0.0-0.4) X10*3/uL Baso # (Auto) 0.0 (0.0-0.2) X10*3/uL Abs Immat Gran (auto) 0.05 H (0.00-0.03) X10*3/uL Absolute Neuts (auto) 10.1 H (2.0-8.3) x10*3/uL Absolute Nucleated RBC 0.000 (0.0-0.012) X10*3/uL Nucleated RBC % (auto) 0.0 (0.0-0.2) /100WBC VBG pH (7.32-7.43) VBG pCO2 mmHg VBG pO2 mmHg VBG HCO3 (22-26) mmol/L VBG O2 Saturation % VBG Base Excess mmol/L Sodium 134 L (135-145) mmol/L Potassium 4.6 (3.3-5.1) mmol/L Chloride 91 L (96-108) mmol/L Carbon Dioxide 23 (22-29) mmol/L Anion Gap 25 H (12-20) BUN 44 H (9-16) mg/dL Creatinine 2.40 H (0.5-1.4) mg/dL Estim Creat Clear Calc 50.1 Estimated GFR 32 POC Glucose 282 H (60-115) mg/dL Random Glucose 301 H (60-115) mg/dL Lactic Acid (0.5-2.0) mmol/L Lactic Acid F/U @ 2Hr (0.5-2.0) mmol/L Calcium 9.8 D (8.4-10.2) mg/dL Total Bilirubin 1.4 H (0.0-1.0) mg/dL Direct Bilirubin (0.0-0.5) mg/dL AST 23 (5-37) U/L ALT 29 (0-40) U/L Alkaline Phosphatase 99 (39-117) U/L Troponin I High Sens 9.7 D 11.0 (<3.5-35.0) ng/L Total Protein 7.6 (6.5-8.0) g/dL Albumin 4.4 (3.5-5.0) g/dL Triglycerides 320 H (<150) mg/dL Lipase 53 (8-78) U/L Beta-Hydroxybutyrate 4.71 H (0.02-0.27) mmol/L Urine Color Urine Appearance Urine pH (5.0-9.0) Ur Specific [place] (1.005-1.025) Urine Protein (Neg-Trace) mg/dL Urine Glucose (UA) (Negative) mg/dL Urine Ketones (Negative) mg/dL Urine Blood (Negative) Urine Nitrite (Negative) Ur Leukocyte Esterase (Negative) Urine RBC (0-2) /HPF Urine WBC (0-5) /HPF Ur Squamous Epith Cells (0-2) /HPF Urine Bacteria (None Seen) Hyaline Casts (0-2) /LPF Influenza Type A (PCR) (Negative) Influenza Type B (PCR) (Negative) RSV RNA Qual (PCR) (Negative) SARS-CoV-2 RNA (RT-PCR) (Negative) 07/02/24 07/02/24 07/02/24 Range/Units 16:08 17:58 18:53 WBC (4.8-10.8) X10*3/uL RBC (4.60-5.80) X10*6/uL Hgb (14.0-18.0) g/dl Hct (42.0-52.0) % MCV (80.0-98.0) fL MCH (27.0-33.0) pg MCHC (31.0-36.0) g/dl RDW (11.0-16.0) % Plt Count (160-400) X10*3/uL MPV (9.4-12.4) fL Immature Gran % (Auto) (0.0-0.4) % Neut % (Auto) (45-73) % Lymph % (Auto) (20-40) % [place] % (Auto) (2-11) % Eos % (Auto) (0-4) % Baso % (Auto) (0-2) % Lymph # (Auto) (1.2-4.9) X10*3/uL [place] # (Auto) (0.1-1.2) X10*3/uL Eos # (Auto) (0.0-0.4) X10*3/uL Baso # (Auto) (0.0-0.2) X10*3/uL Abs Immat Gran (auto) (0.00-0.03) X10*3/uL Absolute Neuts (auto) (2.0-8.3) x10*3/uL Absolute Nucleated RBC (0.0-0.012) X10*3/uL Nucleated RBC % (auto) (0.0-0.2) /100WBC VBG pH 7.54 H (7.32-7.43) VBG pCO2 30 mmHg VBG pO2 107 mmHg VBG HCO3 26 (22-26) mmol/L VBG O2 Saturation 99.0 % VBG Base Excess 5.0 mmol/L Sodium 138 (135-145) mmol/L Potassium 4.4 (3.3-5.1) mmol/L Chloride 97 (96-108) mmol/L Carbon Dioxide 26 (22-29) mmol/L Anion Gap 19 (12-20) BUN 44 H (9-16) mg/dL Creatinine 2.27 H (0.5-1.4) mg/dL Estim Creat Clear Calc 53.0 Estimated GFR 34 POC Glucose (60-115) mg/dL Random Glucose 171 H (60-115) mg/dL Lactic Acid 2.2 H* (0.5-2.0) mmol/L Lactic Acid F/U @ 2Hr (0.5-2.0) mmol/L Calcium 9.1 D (8.4-10.2) mg/dL Total Bilirubin 1.1 H (0.0-1.0) mg/dL Direct Bilirubin (0.0-0.5) mg/dL AST 17 (5-37) U/L ALT 20 (0-40) U/L Alkaline Phosphatase 84 (39-117) U/L Troponin I High Sens (<3.5-35.0) ng/L Total Protein 6.6 (6.5-8.0) g/dL Albumin 3.9 (3.5-5.0) g/dL Triglycerides (<150) mg/dL Lipase (8-78) U/L Beta-Hydroxybutyrate 1.68 H (0.02-0.27) mmol/L Urine Color Urine Appearance Urine pH (5.0-9.0) Ur Specific [place] (1.005-1.025) Urine Protein (Neg-Trace) mg/dL Urine Glucose (UA) (Negative) mg/dL Urine Ketones (Negative) mg/dL Urine Blood (Negative) Urine Nitrite (Negative) Ur Leukocyte Esterase (Negative) Urine RBC (0-2) /HPF Urine WBC (0-5) /HPF Ur Squamous Epith Cells (0-2) /HPF Urine Bacteria (None Seen) Hyaline Casts (0-2) /LPF Influenza Type A (PCR) (Negative) Influenza Type B (PCR) (Negative) RSV RNA Qual (PCR) (Negative) SARS-CoV-2 RNA (RT-PCR) (Negative) 07/02/24 07/02/24 07/02/24 Range/Units 20:34 20:49 21:30 WBC (4.8-10.8) X10*3/uL RBC (4.60-5.80) X10*6/uL Hgb (14.0-18.0) g/dl Hct (42.0-52.0) % MCV (80.0-98.0) fL MCH (27.0-33.0) pg MCHC (31.0-36.0) g/dl RDW (11.0-16.0) % Plt Count (160-400) X10*3/uL MPV (9.4-12.4) fL Immature Gran % (Auto) (0.0-0.4) % Neut % (Auto) (45-73) % Lymph % (Auto) (20-40) % [place] % (Auto) (2-11) % Eos % (Auto) (0-4) % Baso % (Auto) (0-2) % Lymph # (Auto) (1.2-4.9) X10*3/uL [place] # (Auto) (0.1-1.2) X10*3/uL Eos # (Auto) (0.0-0.4) X10*3/uL Baso # (Auto) (0.0-0.2) X10*3/uL Abs Immat Gran (auto) (0.00-0.03) X10*3/uL Absolute Neuts (auto) (2.0-8.3) x10*3/uL Absolute Nucleated RBC (0.0-0.012) X10*3/uL Nucleated RBC % (auto) (0.0-0.2) /100WBC VBG pH 7.49 H (7.32-7.43) VBG pCO2 37 mmHg VBG pO2 80 mmHg VBG HCO3 28 H (22-26) mmol/L VBG O2 Saturation 97.0 % VBG Base Excess 5.5 mmol/L Sodium 137 (135-145) mmol/L Potassium 4.1 (3.3-5.1) mmol/L Chloride 98 (96-108) mmol/L Carbon Dioxide 25 (22-29) mmol/L Anion Gap 18 (12-20) BUN 40 H (9-16) mg/dL Creatinine 2.15 H (0.5-1.4) mg/dL Estim Creat Clear Calc 56.0 Estimated GFR 36 POC Glucose (60-115) mg/dL Random Glucose 183 H (60-115) mg/dL Lactic Acid (0.5-2.0) mmol/L Lactic Acid F/U @ 2Hr 3.2 H* (0.5-2.0) mmol/L Calcium 8.7 (8.4-10.2) mg/dL Total Bilirubin 1.1 H (0.0-1.0) mg/dL Direct Bilirubin 0.3 (0.0-0.5) mg/dL AST 17 (5-37) U/L ALT 22 (0-40) U/L Alkaline Phosphatase 76 (39-117) U/L Troponin I High Sens (<3.5-35.0) ng/L Total Protein 6.1 L (6.5-8.0) g/dL Albumin 3.6 (3.5-5.0) g/dL Triglycerides (<150) mg/dL Lipase (8-78) U/L Beta-Hydroxybutyrate (0.02-0.27) mmol/L Urine Color Yellow Urine Appearance Clear Urine pH 5.0 (5.0-9.0) Ur Specific [place] 1.020 (1.005-1.025) Urine Protein 300 (3+) H (Neg-Trace) mg/dL Urine Glucose (UA) >=1000 H (Negative) mg/dL Urine Ketones 15 (Negative) mg/dL Urine Blood Moderate (2+) H (Negative) Urine Nitrite Negative (Negative) Ur Leukocyte Esterase Negative (Negative) Urine RBC 3-5 H (0-2) /HPF Urine WBC 0-5 (0-5) /HPF Ur Squamous Epith Cells 0-2 (0-2) /HPF Urine Bacteria None Seen (None Seen) Hyaline Casts 3-5 (0-2) /LPF Influenza Type A (PCR) NEGATIVE (Negative) Influenza Type B (PCR) NEGATIVE (Negative) RSV RNA Qual (PCR) NEGATIVE (Negative) SARS-CoV-2 RNA (RT-PCR) NEGATIVE (Negative) Independent Interpretation I performed an independent interpretation of an: EKG, Ultrasound and CT Scan Interpretation: EKG showing normal sinus rhythm, rate of 96 beats per minute, QT 350, QTC 442, no acute ischemic changes or ST elevations. CT A/P without evidence of bowel obstruction Radiology Impression Discussion of test interpretation with radiology: I have reviewed the radiologist's reading. Radiologist Impression: Procedure(s): CT abdomen pelvis wo IV con Accession Number(s): [id number] cc: Cyndi Stubbs~ Report Number: [id number]: Total DLP = 574.00 mGy-cm CLINICAL HISTORY: epigastric pain N V white count CT abdomen and pelvis without contrast Comparison: CT/SR - CT ABDOMEN PELVIS W IV CON - 05/20/22 13:42 EDT Findings: The lung bases are clear. Borderline dilatation of the bilateral renal collecting systems. No renal or ureteral calculus. Unremarkable liver, spleen, pancreas and adrenal glands. Mild debris within the gallbladder. No biliary dilatation. The stomach is poorly distended. There is no evidence of bowel edema or dilatation. There is moderate distention of the urinary bladder. Unremarkable prostate. Appendix not definitively seen. No secondary findings to suggest appendicitis. The bones are intact. IMPRESSION: 1. Moderate distention of the urinary bladder. 2. Borderline dilatation of the renal collecting systems. This may be on the basis of bladder distention. Correlate with urinalysis. 3. There is mild debris within the gallbladder. This may represent sludge or tiny gallstones. Consider further evaluation with ultrasound if indicated. Independent Historian Clinical information obtained from an independent historian. History obtained from or confirmed by: EMS External Record Review External record reviewed: Inpatient record Prescription Management I considered prescription management with: Pain Medication Chronic Conditions Patient?s care impacted by: Diabetes Social Determinants Patient?s care significantly limited by Social Determinants of Health including: Other Social Determinant of Health Critical Care Time Critical Care Time Critical Care Time: Yes Total Critical Care Time: 40 Attestation: Critical care time in the amount of 40 minutes has been provided to the patient in terms of direct patient care, frequent reevaluation, review and interpretation of medical data and results, and management of potentially life-threatening conditions. This is all outside of any medical procedures. Discharge Plan Discharge Clinical Impression: Hyperglycemia, Acute kidney injury, Acidosis, lactic, Acute pyelonephritis Patient Disposition: Admitted As Inpatient Interventions: Admission Worksheet (ED) Last Done: 07/03/24 07:36
[2024-07-02 11:44] LABS: MANUAL DIFF FLAG NO
[2024-07-02 11:47] LABS: Basophils Percent Auto 0.2 % (0-2); Hematocrit 36.2 % (42.0-52.0); Hemoglobin 12.7 g/dl (14.0-18.0); Imm Gran Abs Auto 0.05 X10*3/uL (0.00-0.03); Imm Gran Pct Auto 0.4 % (0.0-0.4); Lymphocytes Percent Auto 8.5 % (20-40); Mean Corpuscular HGB Conc 35.1 g/dl (31.0-36.0); Mean Corpuscular Hemoglobin 29.7 pg (27.0-33.0); Mean Corpuscular Volume 84.6 fL (80.0-98.0); Monocytes Absolute Auto 0.5 X10*3/uL (0.1-1.2); Monocytes Percent Auto 4.2 % (2-11); Neutrophils Absolute Auto 10.1 x10*3/uL (2.0-8.3); Neutrophils Percent Auto 86.7 % (45-73); Platelet Count 248 X10*3/uL (160-400); Red Blood Count 4.28 X10*6/uL (4.60-5.80); White Blood Count 11.7 X10*3/uL (4.8-10.8)
[2024-07-02 12:12] LABS: Troponin-I High Sensitivity 9.7 ng/L (<3.5-35.0)
[2024-07-02 12:14] LABS: Alanine Aminotransferase 29 U/L (0-40); Albumin Level 4.4 g/dL (3.5-5.0); Alkaline Phosphatase 99 U/L (39-117); Anion Gap 25 (12-20); Aspartate Amino Transferase 23 U/L (5-37); Beta-Hydroxybutyrate 4.71 mmol/L (0.02-0.27); Bilirubin Total 1.4 mg/dL (0.0-1.0); Blood Urea Nitrogen 44 mg/dL (9-16); Calcium 9.8 mg/dL (8.4-10.2); Carbon Dioxide 23 mmol/L (22-29); Chloride 91 mmol/L (96-108); Creatinine Clr Calc Pharmacy 50.1; Estimated Glomerular Filt Rate 32; Glucose Random 301 mg/dL (60-115); Lipase 53 U/L (8-78); Potassium 4.6 mmol/L (3.3-5.1); Sodium 134 mmol/L (135-145); Total Protein 7.6 g/dL (6.5-8.0)
[2024-07-02 15:49] LABS: Glucose, Whole Blood 282 mg/dL (60-115)
[2024-07-02 15:53] LABS: Triglycerides 320 mg/dL (<150)
[2024-07-02] MEDS: diphenhydrAMINE HCL 50 MG/ML VIAL 25 MG IVPUSH (16:03)
[2024-07-02] MEDS: Metoclopramide HCl 10 MG/2 ML VIAL IVPUSH (16:04)
[2024-07-02] MEDS: 0.9 % Sodium Chloride 1,000 ML 999 ML IV (16:06)
[2024-07-02 16:14] LABS: VBG HCO3 26 mmol/L (22-26); VBG pCO2 30 mmHg; VBG pH 7.54 (7.32-7.43); VBG pO2 107 mmHg
[2024-07-02 16:14] LABS: Venous Blood Gas Refer to POC result
[2024-07-02] MEDS: Insulin Regular, Human 100 UNIT/ML 10 ML VIAL IVPUSH (16:15)
[2024-07-02] MEDS: Lactated Ringers 1,000 ML 999 ML IV ×2 (16:16→18:45)
[2024-07-02] MEDS: Morphine Sulfate 4 MG/ML CARTRIDGE IVPUSH ×2 (17:28→19:37)
[2024-07-02] MEDS: Pantoprazole Sodium 40 MG/10 ML VIAL IVPUSH (17:53)
[2024-07-02 18:23] LABS: Alanine Aminotransferase 20 U/L (0-40); Albumin Level 3.9 g/dL (3.5-5.0); Alkaline Phosphatase 84 U/L (39-117); Anion Gap 19 (12-20); Aspartate Amino Transferase 17 U/L (5-37); Beta-Hydroxybutyrate 1.68 mmol/L (0.02-0.27); Bilirubin Total 1.1 mg/dL (0.0-1.0); Blood Urea Nitrogen 44 mg/dL (9-16); Calcium 9.1 mg/dL (8.4-10.2); Carbon Dioxide 26 mmol/L (22-29); Chloride 97 mmol/L (96-108); Estimated Glomerular Filt Rate 34; Glucose Random 171 mg/dL (60-115); Potassium 4.4 mmol/L (3.3-5.1); Sodium 138 mmol/L (135-145); Total Protein 6.6 g/dL (6.5-8.0)
--- OUTSIDE RECORDS SUMMARY | 2024-07-02 18:39 | XMS_ITS | Encounter Summary ---
Author Organization [facility] Address [address] [place] [id number] Phone Care Team Providers Care Brusher Operator Name Role Phone Tete Sutherland MD Primary Care Provider Encounter Details Date Type Department Care Team (Late st Contact Info) Description 05/26/2014 Documentation [facility] [address] [place] [address] Family Medicine, Physician [address] [place], [place] [id number] Social History Tobacco Use Types Packs/Day Years [...] on filedocumented in this encounter Care Teams Brusher Operator Relationship Specialty Start Date End Date Tete Sutherland MD [address] [place] [address] [place] [address] PCP - General 10/12/16 08/27/22 documented as of this encounter
--- OUTSIDE RECORDS SUMMARY | 2024-07-02 18:39 | XMS_ITS | Encounter Summary ---
Author Organization [employer] Address [address] [facility] [address]t [place] [address] Care Team Providers Care Web Interface Developer Name Role Phone Ottoniel [facility] Primary Care Provider [phone] Reason for Visit * Reason Onset Date Comments F 05/21/2022 Encounter Details Date Type Department Care Team ([facility] st Contact Info) Description 05/21/2022 Telephone [facility] MEDICINE [address] [place], [place] [phone] [facility] [address] [place] [address] [facility] Social History Tobacco Use Types [...] HDF F/U (no symptoms) Patient hospitalized at [facility]. Patient was admitted on 05/20/2022 and discharged on 05/21/2022. The patient was diagnosed with Virus. Patient advised will forward to [facility] Clinical Coordinators for follow up and appointment scheduling. Please contact Pt at [phone] documented in this encounter Plan of Treatment Not on file documented as of this encounter Visit Diagnoses Not on filedocumented in this encounter Care Teams Web Interface Developer Relationship Specialty Start Date End Date Leanne Alcazar FNP [address] [place] [address] PCP - General Family Medicine 12/13/21 documented as of this encounter
--- OUTSIDE RECORDS SUMMARY | 2024-07-02 18:39 | XMS_ITS | Clinical Summary ---
Author Organization [facility] Address [address] [place] [address] Phone Care Team Providers Care Market Development Specialist Name Role Phone Unavailable Primary Care [...]
--- OUTSIDE RECORDS SUMMARY | 2024-07-02 18:39 | XMS_ITS | Encounter Summary ---
Author Organization [employer] Address [address] [facility] 7t [place] [address] Care Team Providers Care Tire Mounter Name Role Phone Leanne Alcazar [facility] Primary Care Provider [phone] Reason for Visit * Reason Onset Date Comments Nurse Triage 08/15/2023 Encounter Details Date Type Department Care Team ([facility] st Contact Info) Description 08/15/2023 Telephone [facility] MEDICINE [address] [place], [place] [phone] [facility] [address] [place] [address] Nurse Triage Social History Tobacco Use Types [...] blood sugars were WNL. Pt went to [facility] 08/14/23 in the evening due to [...] past 3 days, pt was seen at [facility] on 08/14 for nausea/vomiting. Pt has not eaten in 28 hours. The caller accepted this outcome Please contact pt at [phone] documented in this encounter Plan of Treatment Not on file documented as of this encounter Visit Diagnoses Not on filedocumented in this encounter Additional Health Concerns Assessment Noted Time PHQ-9 Depression Total Score: 24 023 10:42 AM EST documented as of this encounter Care Teams Tire Mounter Relationship Specialty Start Date End Date Leanne Alcazar FNP [address] [place] [address] PCP - General Family Medicine 12/13/21 documented as of this encounter
--- OUTSIDE RECORDS SUMMARY | 2024-07-02 18:39 | XMS_ITS | Encounter Summary ---
Author Organization [facility] Address [address] [place] [address] Phone Care Team Providers Care Business Rules Analyst Name Role Phone Tete Sutherland MD Primary Care Provider [phone] Encounter Details Date Type Department Care Team (Late st Contact Info) Description 02/04/2014 Documentation [facility] Family Medicine [address] [place] [address] Family Medicine, Physician [address] [place], [place] [phone] Social History Tobacco Use Types Packs/Day Years [...] on filedocumented in this encounter Care Teams Business Rules Analyst Relationship Specialty Start Date End Date Tete Sutherland MD [address] [place] [address] [place] [address] PCP - General 10/12/16 08/27/22 documented as of this encounter
--- OUTSIDE RECORDS SUMMARY | 2024-07-02 18:39 | XMS_ITS | Encounter Summary ---
Author Organization [facility] Address [address] [place] [address] Phone Care Team Providers Care Brand Specialist Name Role Phone Tete Sutherland MD Primary Care Provider Encounter Details Date Type Department Care Team (Late st Contact Info) Description 07/21/2012 Documentation [facility] [place] [address] [place] [address] Family Medicine, Physician [address] [place], [place] [phone] Social History Tobacco Use Types Packs/Day Years [...] on filedocumented in this encounter Care Teams Brand Specialist Relationship Specialty Start Date End Date Tete Sutherland MD [address] [place] [address] [place] [address] PCP - General 10/12/16 08/27/22 documented as of this encounter
--- OUTSIDE RECORDS SUMMARY | 2024-07-02 18:39 | XMS_ITS | Encounter Summary ---
Author Organization [facility] Address [address] [place] [address] Phone Care Team Providers Care Pre Certification Specialist Name Role Phone Tete Sutherland MD Primary Care Provider Encounter Details Date Type Department Care Team (Late st Contact Info) Description 11/13/2012 Documentation [facility] [place] Family Medicine [address] [place] [address] Family Medicine, Physician [address] [place], [place] [phone] Social History Tobacco Use Types Packs/Day Years [...] on filedocumented in this encounter Care Teams Pre Certification Specialist Relationship Specialty Start Date End Date Tete Sutherland MD [address] [place] [address] [place] [address] PCP - General 10/12/16 08/27/22 documented as of this encounter
--- OUTSIDE RECORDS SUMMARY | 2024-07-02 18:39 | XMS_ITS | Encounter Summary ---
Author Organization [facility] Address [address] [place] [address] Phone Care Team Providers Care Kiln Drawer Name Role Phone Tete Sutherland MD Primary Care Provider Encounter Details Date Type Department Care Team (Late st Contact Info) Description 08/05/2009 Documentation [facility] [place] [address] [place] [address] Family Medicine, Physician [address] [place], [place] [phone] Social History Tobacco Use Types Packs/Day Years [...] filedocumented in this encounter Care Teams Kiln Drawer Relationship Specialty Start Date End Date Tete Sutherland MD [address] [place] [address] SUL[place] Narayan [address] PCP - General 10/12/16 08/27/22 documented as of this encounter
--- OUTSIDE RECORDS SUMMARY | 2024-07-02 18:39 | XMS_ITS | Encounter Summary ---
Author Organization [facility] Address [address] [place] [address] Phone Care Team Providers Care Tube Drawing Supervisor Name Role Phone Tete Sutherland MD Primary Care Provider [phone] Encounter Details Date Type Department Care Team (Late st Contact Info) Description 04/08/2014 Documentation [facility] [place] [address] [place] [address] Family Medicine, Physician [address] [place], [place] [phone] Social History Tobacco Use Types Packs/Day Years [...] on filedocumented in this encounter Care Teams Tube Drawing Supervisor Relationship Specialty Start Date End Date Tete Sutherland MD [address] [place] [address] [place] [address] PCP - General 10/12/16 08/27/22 documented as of this encounter
--- OUTSIDE RECORDS SUMMARY | 2024-07-02 18:39 | XMS_ITS | Encounter Summary ---
Author Organization [facility] Address [address] [place] [address] Phone Care Team Providers Care Mrp Controller Name Role Phone Tete Sutherland MD Primary Care Provider Encounter Details Date Type Department Care Team (Late st Contact Info) Description 10/21/2012 Documentation [facility] Family Medicine [address] [place] [address] Family Medicine, Physician [address] [place], [place] [phone] Social History Tobacco Use Types Packs/Day Years [...] on filedocumented in this encounter Care Teams Mrp Controller Relationship Specialty Start Date End Date Tete Sutherland MD [address] [place] [address] [place] [address] PCP - General 10/12/16 08/27/22 documented as of this encounter
--- OUTSIDE RECORDS SUMMARY | 2024-07-02 18:39 | XMS_ITS | Encounter Summary ---
Author Organization [facility] Address [address] [place] [address] Phone Care Team Providers Care Direct Response Consultant Name Role Phone Tete Sutherland MD Primary Care Provider Encounter Details Date Type Department Care Team (Late st Contact Info) Description 01/29/2012 Documentation [facility] [place] [address] [place] [address] Family Medicine, Physician [address] [place], [place] [phone] Social History Tobacco Use Types Packs/Day Years [...] on filedocumented in this encounter Care Teams Direct Response Consultant Relationship Specialty Start Date End Date Tete Sutherland MD [address] [place] [address] [place] Narayan [address] PCP - General 10/12/16 08/27/22 documented as of this encounter
--- OUTSIDE RECORDS SUMMARY | 2024-07-02 18:39 | XMS_ITS | Encounter Summary ---
Author Organization [facility] Address [address] [place] [address] Phone Care Team Providers Care It Application Architect Name Role Phone Tete Sutherland MD Primary Care Provider Encounter Details Date Type Department Care Team (Late st Contact Info) Description 10/22/2012 Documentation [facility] [place] [address] [place] [address] Family Medicine, Physician [address] [place], [place] [phone] Social History Tobacco Use Types Packs/Day Years [...] on filedocumented in this encounter Care Teams It Application Architect Relationship Specialty Start Date End Date Tete Sutherland MD [address] [place] [address] [place] [address] PCP - General 10/12/16 08/27/22 documented as of this encounter
--- OUTSIDE RECORDS SUMMARY | 2024-07-02 18:39 | XMS_ITS | Clinical Summary ---
Author Organization [employer] Address [address] [facility] [address] [place] [address] Care Team Providers Care Sash Installer Name Role Phone Leanne Alcazar MILLWRIGHT HELPER Primary Care Provider [phone] Allergies No known active allergies Medications * [...] 2 Active Blood Glucose Monitoring Suppl (FreeStyle Massena Lite) w/Device kit TEST BLOOD SUGAR ONE OR TWO TIMES DAILY DIRECTED 2 Active TRUEplus Lancets 33G miscIndications:T ype 2 diabetes mellitus with hyperglycemia, without long-term current use of insulin ([facility]) TEST BLOOD SUGAR 4 times daily 120 each 1 3 Active glucose blood test stripIndications: Type 2 diabetes mellitus with hyperglycemia, without long-term current use of insulin ([facility]) Use as directed to check blood sugar four times daily 100 each 12 3 Active Continuous Glucose Devops Developer (FreeStyle [address] [place]) deviceIndications :Type 2 diabetes mellitus with hyperglycemia, without long-term current use of insulin ([facility]) Scan sensor every 8 hours 1 each 4 Active empagliflozin (Jardiance) 10 MG Take 1 tablet (10 mg) by mouth Once per day. 30 tablet 11 4 08/16/19 25 Active glucose 4 g chewable tabletIndications :Type 2 diabetes mellitus with hypoglycemia without coma, without long-term current use of insulin ([facility]) Chew 4 tablets (16 g) [...] Active insulin pen needle (Sure Comfort Pen [place]) 31G x 5 mm miscIndications:T ype 2 [...] appointment Acute kidney injury superimposed on CKD ([facility] ) 03/02/2024 Assessment & Plan (03/02/2024 2:17 PM EST): Drink plenty of water Avoid nephrotoxic medication Work on glucose and blood pressure control 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 Vision Exam: 12/2021, sharon ?? Dental Care: Discuss at follow up [...] 08/2022 Risk 0 Eye Exam: Referred to [facility]; followed by outside retinal [...] morning FBG < 130 ?? Referral to [facility] DM educator Assessment & Plan (11/18/2022 [...] follow up Eye Exam: 12/2021, completed in [place] Lipid panel: 12/2021 WNL, order repeat at [...] of SI or self harm. Pt has [facility] crisis contact information Assessment & Plan (11/18/2022 12:46 PM EDT): ?? STOP sertraline due to s/e ?? Declines N referral ?? Contact HC if sx worsen or experiencing thoughts of SI or self harm. Pt has [facility] crisis contact information Assessment & Plan (08/05/2022 [...] Encounters Date Type Department Care Team Description 06/25/2024 Orders Only GENERIC EXTERNAL DATA DEPARTMENT Provider, Generic External Data 06/06/2024 Orders Only GENERIC EXTERNAL DATA DEPARTMENT Provider, Generic External Data 05/15/2024 Population Health Risk Score Community Care [facility] (C3) Department [address] [place] [phone] Provider, Population Health Generic 05/13/2024 Telephone [facility] [address] [place], [place] [phone] [facility] No Show 04/10/2024 Refill [facility] [address] [place] [address] [facility] Type 2 diabetes mellitus with hyperglycemia, without long-term current use of insulin ([facility]) from Last 3 Months Immunizations Name Administration [...] MMR 11/10/2013,10/26/1998,07/31/1994 Meningococcal MCV4P [id number]-135 01/15/2007 Novel [id number], all formulations 01/17/2009 Pfizer Covid-19 Vaccine 12+ [...] (2 of 2 - PCV) 01/17/2010 01/17/2009 COVID-19 Vaccine ( season) 2023 01/28/2023, 02/08/2021, 07/08/2020, Additional history exists Eye Exam 12/03/2023 12/02/2021 Diabetes: Foot Exam 09/05/2024 09/06/2023, 09/06/2023, 07/26/2022, Additional history exists Diabetes: Hemoglobin A1C 09/13/2024 025, 09/06/2023, 06/12/2023, Additional history exists SDOH Screening 12/01/2024 12/02/2023 Depression Screening 01/26/2025 01/27/2024, 01/27/20 24 Tobacco Screening 03/02/2025 03/02/2024 Lipid Panel 06/25/2025 06/25/2024, 07/03, 12/13/2021 DTaP/Tdap/Td Vaccines (9 - Td or Tdap) [...] Procedure Name Priority Date/Time Associated Diagnosis Comments LIPID PANEL, STANDARD Routine 06/25/2024 2:45 PM EDT HEPATIC FUNCTION PANEL Routine 2:45 PM EDT Routine adult health maintenance COMPREHENSIVE METABOLIC PANEL Routine 06/25/2024 2:45 PM EDT Acute kidney injury (CMS/HCC) GLUTAMIC ACID DECARBOXYLASE 65 AB Routine 06/25/2024 2:37 PM EDT PROTEIN CREATININE RATIO, URINE Routine 06/25/2024 2:18 PM EDT URINALYSIS, COMPLETE Routine 06/25/2024 2:18 PM EDT BASIC METABOLIC PANEL Routine 06/06/2024 12:39 AM EDT HEMOGLOBIN A1C Routine 03/16/2024 4:20 PM EST [facility] HISTORICAL HEPATITIS C AB W/REFL TO HCV RNA, QN, PCR Routine 12/13/2021 11:51 AM EDT HIV 1/2 ANTIGEN/ANTIBODY, FOURTH GENERATION W/RFL Routine 12/13/2021 11:51 AM EDT from Last 3 Months or Most Recently Relevant to Health Maintenance Results * Hepatic Function Panel (06/25/2024 2:45 PM EDT) Bilirubin, Direct 0.2 0.0 - 0.5 mg/dL [facility] Blood Venous blood specimen / Unknown 06/25/2024 2:45 PM EDT 06/25/2024 2:45 PM EDT [facility] MILLWRIGHT HELPER LAB BLOOD ORDERABLES Final Re sult Performing Organization Address City/[facility] Co de Phone Number [facility] [address] [place] [phone] * (ABNORMAL) Lipid Panel, Standard (06/25/2024 2:45 PM EDT) Triglycerides 167(H) <150 mg/dL [facility] Comment:Desirable Triglyceri de: less than 150 mg/dLBorderline High Triglyceride 150-199 mg/dLHigh Triglyceride: 200-499 mg/dLVery High Triglyceride: greater than or equal to 5OO mg/dL Cholesterol 139 <200 mg/dL [facility] Comment:Desirable Cholestero l: less than 200 mg/dLBorderline High Cholesterol: 200-239 mg/dLHigh Cholesterol: greater than 239 mg/dL LDL Cholesterol Calculated 64 <100 mg/dL [facility] Comment:Desirable LDL: less than 100 mg/dLNear Optimal/Above Optimal LDL: 110- 129 mg/dLBorderline High LDL: 130-159 mg/dLHigh LDL: 160-189 mg/dLVery High LDL: greater than or equal to 190 mg/dL HDL Cholesterol 42 >40 mg/dL [facility] Comment:Desirable HDL: great er than 40 mg/dL Note: This HDL assay may give artificially low results in patients with liver disease. 06/25/2024 2:45 PM EDT 06/25/2024 2:45 PM EDT Generic External Data Provider LAB BLOOD ORDERAB LES Final Result Performing Organization Address City/[facility]/ZIP Co de Phone Number [facility] [address] [place] [phone] * (ABNORMAL) Comprehensive Metabolic Panel (06/25/2024 2:45 PM EDT) Sodium 136 135 - 145 mmol/L [facility] Potassium 4.6 3.3 - 5.1 mmol/L [facility] Chloride 105 96 - 108 mmol/L [facility] Carbon Dioxide 24 22 - 29 mmol/L [facility] Anion Gap 12 12 - 20 [facility] Urea Nitrogen (BUN) 31(H) 9 - 16 mg/dL [facility] Creatinine, Serum 1.81(H) 0.5 - 1.4 mg/dL [facility] Estimated Glomerular Filt Rate 44 [facility] Comment:Chronic Kidney Disea se: Estimated GFR < 60 mL/min/1.97j8Eshceu Kidney Disease: Estimated GFR < 15 mL/min/1.73m2 Glucose 243(H) 60 - 115 mg/dL [facility] Calcium 9.1 8.4 - 10.2 mg/dL [facility] Bilirubin, Total 0.9 0.0 - 1.0 mg/dL [facility] Aspartate Amino Transferase 19 5 - 37 U/L [facility] Alanine Aminotransferase 19 0 - 40 U/L [facility] Total Protein 6.6 6.5 - 8.0 g/dL [facility] Albumin Level 3.9 3.5 - 5.0 g/dL [facility] Alkaline Phosphatase 99 39 - 117 U/L [facility] Blood Venous blood specimen / Unknown 06/25/2024 2:45 PM EDT 06/25/2024 2:45 PM EDT [facility] LAB BLOOD ORDERABLES Final Re sult [facility] [address] [place] [phone] * (ABNORMAL) Glutamic Acid Decarboxylase 65 Antibody (06/25/2024 2:37 PM EDT) Glutamic acid decarboxylase Ab >250(A) <5 IU/mL [facility] Comment:This test was perfor med using the GAD65 JALYN method,which is standardized against the Internationalreference preparation 97/550.THIS TEST WAS PERFORMED AT:Topic/[id number] [place] [id number] EDGE MD,PHD 06/25/2024 2:37 PM EDT 06/25/2024 2:37 PM EDT Generic External Data Provider LAB BLOOD ORDERAB LES Final Result Performing Organization Address [facility] Co de Phone Number [facility] [address] [place] [phone] * (ABNORMAL) Protein Creatinine Ratio, Urine (06/25/2024 2:18 PM EDT) Creatinine, Urine 122.62 mg/dL [facility] Protein, Total, Random Urine 403(H) <12 mg/dL [facility] Protein/Creati nine Ratio, Ur 3.29(H) <0.2 [facility] Comment:The spot urine prote in:creatinine ratio may increase to 0.3during normal . 06/25/2024 2:18 PM EDT 06/25/2024 4:09 PM EDT Generic External Data Provider LAB URINE ORDERAB LES Final Result Performing Organization Address [facility]/ZIP Co de Phone Number [facility] [address] [place] [phone] * (ABNORMAL) Urinalysis Complete (06/25/2024 2:18 PM EDT) Color Urine Yellow [facility] Appearance Urine Clear [facility] PH 5.5 5.0 - 9.0 [facility] Glucose Urine UA >=1000(A) Negative mg/dL [facility] Urine Blood Moderate (2+)(A) Negative [facility] Specific [place] - Urine 1.020 1.005 - 1.025 [facility] Urine Protein 300 (3+)(A) Neg-Trace mg/dL [facility] Urine Ketones Negative Negative mg/dL [facility] Nitrite Urine Negative Negative [facility] Leukocyte Esterase Urine Negative Negative [facility] RBC Urine 6-10(A) 0 - 2 /HPF [facility] Urine WBC 0-5 0 - 5 /HPF [facility] Urine Squamous Epithelial Cell 0-2 0 - 2 /HPF [facility] Urine Bacteria None Seen None Seen [facility] Hyaline Casts, Urine 0-2 0 - 2 /LPF [facility] 06/25/2024 2:18 PM EDT 06/25/2024 4:09 PM EDT us Generic External Data Provider LAB URINE ORDERAB LES Final Result [facility] [address] [place] [phone] * (ABNORMAL) Basic Metabolic Panel (06/06/2024 12:39 AM EDT) Sodium 139 135 - 145 mmol/L [facility] Potassium 3.5 3.3 - 5.1 mmol/L [facility] Chloride 104 96 - 108 mmol/L [facility] Carbon Dioxide 23 22 - 29 mmol/L [facility] Anion Gap 16 12 - 20 [facility] Urea Nitrogen (BUN) 36(H) 9 - 16 mg/dL [facility] Creatinine, Serum 1.83(H) 0.5 - 1.4 mg/dL [facility] Creatinine Clr Calc Pharmacy 66.6 [facility] Comment:eGFR (calculated fro m the MDRD study equation) and eCrCl(calculated from the Cockcroft-Gault equation) are based ondifferent parameters and may not yield comparable results.If eCrCl result is absurd, please check patient'sheight/weight. Estimated Glomerular Filt Rate 43 [facility] Comment:Chronic Kidney Disea se: Estimated GFR < 60 mL/min/[id number] Kidney Disease: Estimated GFR < 15 mL/min/1.73m2 Glucose 134(H) 60 - 115 mg/dL [facility] Calcium 8.3(L) 8.4 - 10.2 mg/dL [facility] 06/06/2024 12:3 9 AM EDT 06/06/2024 12:43 AM EDT Generic External Data Provider LAB BLOOD ORDERAB LES Final Result Performing Organization Address [facility] Co de Phone Number [facility] [address] [place] [phone] * (ABNORMAL) Hemoglobin A1c (03/16/2024 4:20 PM EST) Hemoglobin A1c 6.8(H) <6.0 % [facility] Comment:Hemoglobin A1C Refer ence Range Adults: 4.8 - 6.0 % Non diabetic: < 6.0 % Goal: < 7.0 %Additional Action Suggested: > 8.0 %Note: Hemoglobin A1c results are invalid for patients with abnormal amounts of HbF. Blood transfusions may impact the HbA1c concentration in the patient sample. Estimated Average Glucose 148 mg/dL [facility] Comment:eAG = Estimated ave rage glucose which is %A1C expressed asaverage glucose, using the formula of the W5P-AvsctndUftgxbo Glucose study (ADAG), Diabetes Care, Vol.31,#8,Oct. 2007 03/16/2024 4:20 PM EST 03/16/2024 4:20 PM EST Generic External Data Provider LAB BLOOD ORDERAB LES Final Result Performing Organization Address [facility] Co de Phone Number [facility] [address] [place] [phone] * HEPATITIS C AB W/REFL TO HCV [...] a test for HCV RNA (test code 24224) is suggested. ?? For additional information please refer to http://[employer]DoubleRecall/faq/XZJ15w2 (This link is being provided for informational/ educational purposes only.) ?? 12/13/2021 11:5 1 AM EDT [facility] MILLWRIGHT HELPER HISTORICAL/NON ORDERABLE LABS Final Result CONVERTED LEGACY [...] ? For additional information please refer to http://[employer].DoubleRecall/faq/YZU778 (This link is being provided for informational/ educational purposes only.) ? The performance of this assay has not been clinically validated in patients less than 2 years old. ?? 12/13/2021 11:5 1 AM EDT [facility] LAB BLOOD ORDERABLES Final Re sult CONVERTED LEGACY LABS from Last 3 Months or Most Recently Relevant to Health Maintenance Insurance * Guarantor: Tristen Boateng Account Type Relation to Patient Date of Phone Billing Address Personal/Family Self [address] [place] [address] [facility] C[facility] * Guarantor: Tristen Boateng Account Type Relation to Patient Date of Phone Billing Address Personal/Family Self [address] [place] [address] * Guarantor: Tristen Boateng Account Type Relation to Patient Date of Phone Billing Address Personal/Family Self [address] [place] [address] * Guarantor: Tristen Boateng Account Type Relation to Patient Date of Phone Billing Address Personal/Family Self [address] [place] [address] Care Teams Sash Installer Relationship Specialty Start Date End Date [facility] [address] [place] [phone] PCP - General Family Medicine 12/13/21
[2024-07-02 19:28] LABS: Lactic Acid 2.2 mmol/L (0.5-2.0)
[2024-07-02] MEDS: cefTRIAXone sodium 2 GM VIAL IVPUSH (20:41)
[2024-07-02 20:52] LABS: Venous Blood Gas Refer to POC result
[2024-07-02 20:53] LABS: VBG Base Excess 5.5 mmol/L; VBG HCO3 28 mmol/L (22-26); VBG pCO2 37 mmHg; VBG pH 7.49 (7.32-7.43); VBG pO2 80 mmHg
[2024-07-02 21:02] LABS: Reflex Lactate? Lactic Acid Added
[2024-07-02 21:03] LABS: Alanine Aminotransferase 22 U/L (0-40); Albumin Level 3.6 g/dL (3.5-5.0); Alkaline Phosphatase 76 U/L (39-117); Anion Gap 18 (12-20); Aspartate Amino Transferase 17 U/L (5-37); Bilirubin Total 1.1 mg/dL (0.0-1.0); Blood Urea Nitrogen 40 mg/dL (9-16); Calcium 8.7 mg/dL (8.4-10.2); Carbon Dioxide 25 mmol/L (22-29); Chloride 98 mmol/L (96-108); Estimated Glomerular Filt Rate 36; Glucose Random 183 mg/dL (60-115); Potassium 4.1 mmol/L (3.3-5.1); Sodium 137 mmol/L (135-145); Total Protein 6.1 g/dL (6.5-8.0)
[2024-07-02 21:29] LABS: Influenza A PCR NEGATIVE (Negative); Influenza B PCR NEGATIVE (Negative); Resp Syncy Virus RNA Qual PCR NEGATIVE (Negative); SARS COV2 PCR INHOUSE NEGATIVE (Negative)
[2024-07-02 21:39] LABS: Appearance Urine Clear; Color Urine Yellow; Glucose Urine UA >=1000 mg/dL (Negative); Leukocyte Esterase Urine Negative (Negative); Nitrite Urine Negative (Negative); UMIC TRIGGER UACC YES; Urine Blood Moderate (2+) (Negative); Urine Ketones 15 mg/dL (Negative); Urine Protein 300 (3+) mg/dL (Neg-Trace)
[2024-07-02] MEDS: ondansetron HCL 4 MG/2 ML VIAL IVPUSH (21:44)
[2024-07-02 21:54] LABS: ~Lactic Acid-LAB USE ONLY 3.2 mmol/L (0.5-2.0)
[2024-07-02 21:55] LABS: Bacteria Urine None Seen (None Seen); Squamous Epithelial Cell Urine 0-2 /HPF (0-2); WBC Urine 0-5 /HPF (0-5)
[2024-07-02 23:33] LABS: Reflex Lactate? 2 Y
[2024-07-03] VITALS (11 sets, daily range): BP systolic 136–202; BP diastolic 58–96; PULSE 83–115; RESP 16–26; TEMP 36.6–37.4; O2SAT 96–98
--- NOTE | 2024-07-03 | P.HPHOSP_ITS ---
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 Patient was not able to take his pantoprazole due to the vomiting. Patient denies any chills, fevers, night sweats at home. Patient was not using marijuana for a couple of days and then used it last night and felt better for a short period of time. Diagnostic workup including an abdominal ultrasound indicated gallbladder sludge and hepatic steatosis. Common bile duct 4 mm in diameter. No evidence of Lima's sign. No ascites. Abdominal CT with borderline evidence of pyelonephritis. UA does not correlate for UTI. Patient had notable bladder distention. Lactic acid 2.2 then 3.4 with a leukocytosis. Patient was started on ceftriaxone in the emergency department. Patient continues to have abdominal pain which results in an upper body tremulous disposition but patient remains alert and orientated at all times. Patient has had emesis but denies seeing any blood. Patient denies history of seizure. Patient does not believe the pain is correlating to chest pain. EKG reassuring normal sinus rhythm with no ischemic changes. Patient does not require oxygen at this time. Patient states the esophageal [place] has worse over time. Patient reports he has multiple stressors at home including caring for an autistic child, and marital problems but patient currently denies any suicidal ideations. 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 Patient uses marijuana usually daily to help with his anxiety. Patient was seen by Nephrology back in March 2024, noting patient has again KARUNA, and found that patient was not always taking his antihypertensives on a daily basis and control of his diabetes has been off and on. Patient has been diagnosed with chronic kidney disease stage IIIA related to his diabetes. Review of Systems 2 Review of Systems: Patient reports intermittent increasing mid epigastric abdominal pain associated with burning in the esophagus. Patient denies chest pain, shortness of breath at rest or with exertion hoarding ongoing with episodes of emesis. Patient used marijuana last evening with resolve of his symptoms for a short time. 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 Yes all other systems are reviewed and are negative [facility] Medical History Cannabis hyperemesis syndrome concurrent with and due to cannabis dependence Cannabis use disorder Hypertension Anxiety Chest pain ADHD Generalized anxiety disorder Type 2 diabetes mellitus Hypertension Functional capacity: independent ambulation Family History Father HTN (hypertension) Mother Arthritis Sister Lupus (systemic lupus erythematosus) Surgical History [place] teeth extracted History of appendectomy History of eye surgery (~06/2022) Social History Household Members: Family Housing: Apartment Do you presently have visiting nurse or other home services: No Alcohol intake: former Patient Tobacco Use Status: Never used Tobacco Smoked in Last 30 Days: No e-Cigarette/Vaping Use: Never Used Second Hand Smoke Exposure: No (N/A) Use of substances other than those prescribed or required for medical reasons: Yes Substance Use Type: Marijuana Advance Directives: Yes Advance Directives on File: Yes Advance Directives Date on File: 11/01/23 Do you have a plan to hurt others: No Plan service: No Ebola Risk: Travel/Contact With Anyone From Affected Area/s: No Has Patient Experienced Ebola Symptoms: No Meds Allergies Allergy/AdvReac Type Severity Reaction Status Date / Time No Known Allergies Allergy Verified 07/02/24 11:08 [No Known Allergies*] Active Medications: Current Medications Acetaminophen (Acetaminophen 325 Mg Tablet) 650 mg PO Q6H PRN PRN Reason: Pain, Mild 1-3,fever,headache Calcium Carbonate (Calcium Carbonate 750 Mg Tab.Chew) 750 mg PO Q4H PRN PRN Reason: Heartburn Heparin Sodium (Porcine) (Heparin Sodium,Porcine 5,000 Unit/Ml Vial) 5,000 unit SUBCUT Q8H PRI[facility] Hydromorphone HCl (Hydromorphone Hcl 0.5 Mg/0.5 Ml Syringe) 0.5 mg IVPUSH Q4H PRN; Protocol PRN Reason: Pain, Severe (Pain Scale 7-10) Sodium Chloride (Ns) 1,000 mls @ 100 mls/hr IVCONT .Q10H [facility] Magnesium Hydroxide (Milk Of Magnesia 30 Ml Oral.Susp) 30 ml PO DAILY PRN PRN Reason: Constipation Melatonin (Melatonin 3 Mg Tablet) 6 mg PO BEDTIME PRN PRN Reason: Insomnia Ondansetron HCl (Ondansetron Hcl 4 Mg/2 Ml Vial) 4 mg IVPUSH Q8H PRN PRN Reason: Nausea and Vomiting Pantoprazole Sodium (Pantoprazole Sodium 40 Mg/10 Ml Vial) 40 mg IVPUSH BID@0630,1630 [facility] Polyethylene Glycol (Polyethylene Glycol 3350 17 Gm Powd.Pack) 17 gm PO DAILY PRN PRN Reason: Constipation Sodium Chloride (0.9 % Sodium Chloride Flush 3 Ml Syringe) 3 ml IVFLUSH QSHIFT [facility] Home Medications ?Medication ?Instructions ?Recorded ?Confirmed ?Last Taken ?Type empagliflozin 10 mg tablet 10 mg PO DAILY 10/29/23 03/31/24 03/12/24 History (Jardiance) carvedilol 25 mg tablet 25 mg PO BID 02/06/24 03/31/24 03/12/24 History amlodipine 10 mg tablet 10 mg PO DAILY 02/25/24 03/31/24 03/12/24 History escitalopram oxalate 10 mg tablet 10 mg PO DAILY 02/25/24 03/31/24 03/12/24 History pantoprazole 40 mg tablet,delayed 40 mg PO QAM 03/16/24 03/31/24 Unknown History release glucose 4 gram chewable tablet 16 g PO diabetes mellitus 04/02/24 Unknown History Physical Exam 2 Vital Signs and Narrative: Vital Signs: Last Vital Signs Temp 98.3 F 07/02/24 20:52 Pulse 87 07/02/24 21:05 Resp 17 07/02/24 21:05 BP 148/80 H 07/02/24 21:05 Pulse Ox 97 07/02/24 21:05 O2 Del Method Room Air 07/02/24 21:05 BMI result Body Mass Index 34.5 Alert and orientated X3, able to answer questions asked for HPI Neuro: CN II-X11 intact, no deficits, visual acuity intact in R eye only EYES: PERRLE R eye, conjunctiva pink ENT: hearing intact, uvula midline, lips moist, nares patent no epistaxis, dentition intact Cardiac: S1 S2 RRR, no murmur, no JVD, no edema in Lower ext Pulmonary: lungs diminshed B Abdominal: BS active in all 4 quadrants, tenderness mid epigastric area, no rebounding. Pt obeses, abd softly distended MSK: strength 4/5 upper and lower extremities : no CVA tenderness Extremities: no edema in lower extremities, PT and DP pulses palpable +2 Psych: mood anxious, judgement and insight good Skin: no open wounds noted Results Labs 07/02/24 11:38 07/02/24 20:34 Labs: Laboratory Results - last 24 hr 07/02/24 07/02/24 07/02/24 11:38 15:45 16:08 MCV 84.6 MCH 29.7 MCHC 35.1 RDW 12.0 Plt Count 248 MPV 10.0 Immature Gran % (Auto) 0.4 Neut % (Auto) 86.7 H Lymph % (Auto) 8.5 L [place] % (Auto) 4.2 Eos % (Auto) 0.0 Baso % (Auto) 0.2 Lymph # (Auto) 1.0 L [place] # (Auto) 0.5 Eos # (Auto) 0.0 Baso # (Auto) 0.0 Abs Immat Gran (auto) 0.05 H Absolute Neuts (auto) 10.1 H Absolute Nucleated RBC 0.000 Nucleated RBC % (auto) 0.0 VBG pH 7.54 H VBG pCO2 30 VBG pO2 107 VBG HCO3 26 VBG O2 Saturation 99.0 VBG Base Excess 5.0 Anion Gap 25 H Estim Creat Clear Calc 50.1 Estimated GFR 32 POC Glucose 282 H Random Glucose 301 H Lactic Acid Lactic Acid F/U @ 2Hr Calcium 9.8 D Total Bilirubin 1.4 H AST 23 ALT 29 Alkaline Phosphatase 99 Total Protein 7.6 Albumin 4.4 Triglycerides 320 H Lipase 53 Beta-Hydroxybutyrate 4.71 H Urine Color Urine Appearance Urine pH Ur Specific [place] Urine Protein Urine Glucose (UA) Urine Ketones Urine Blood Urine Nitrite Ur Leukocyte Esterase Urine RBC Urine WBC Ur Squamous Epith Cells Urine Bacteria Hyaline Casts Influenza Type A (PCR) Influenza Type B (PCR) RSV RNA Qual (PCR) SARS-CoV-2 RNA (RT-PCR) 07/02/24 07/02/24 07/02/24 17:58 18:53 20:34 MCV MCH MCHC RDW Plt Count MPV Immature Gran % (Auto) Neut % (Auto) Lymph % (Auto) [place] % (Auto) Eos % (Auto) Baso % (Auto) Lymph # (Auto) [place] # (Auto) Eos # (Auto) Baso # (Auto) Abs Immat Gran (auto) Absolute Neuts (auto) Absolute Nucleated RBC Nucleated RBC % (auto) VBG pH VBG pCO2 VBG pO2 VBG HCO3 VBG O2 Saturation VBG Base Excess Anion Gap 19 18 Estim Creat Clear Calc 53.0 56.0 Estimated GFR 34 36 POC Glucose Random Glucose 171 H 183 H Lactic Acid 2.2 H* Lactic Acid F/U @ 2Hr Calcium 9.1 D 8.7 Total Bilirubin 1.1 H 1.1 H AST 17 17 ALT 20 22 Alkaline Phosphatase 84 76 Total Protein 6.6 6.1 L Albumin 3.9 3.6 Triglycerides Lipase Beta-Hydroxybutyrate 1.68 H Urine Color Urine Appearance Urine pH Ur Specific [place] Urine Protein Urine Glucose (UA) Urine Ketones Urine Blood Urine Nitrite Ur Leukocyte Esterase Urine RBC Urine WBC Ur Squamous Epith Cells Urine Bacteria Hyaline Casts Influenza Type A (PCR) NEGATIVE Influenza Type B (PCR) NEGATIVE RSV RNA Qual (PCR) NEGATIVE SARS-CoV-2 RNA (RT-PCR) NEGATIVE 07/02/24 07/02/24 20:49 21:30 MCV MCH MCHC RDW Plt Count MPV Immature Gran % (Auto) Neut % (Auto) Lymph % (Auto) [place] % (Auto) Eos % (Auto) Baso % (Auto) Lymph # (Auto) [place] # (Auto) Eos # (Auto) Baso # (Auto) Abs Immat Gran (auto) Absolute Neuts (auto) Absolute Nucleated RBC Nucleated RBC % (auto) VBG pH 7.49 H VBG pCO2 37 VBG pO2 80 VBG HCO3 28 H VBG O2 Saturation 97.0 VBG Base Excess 5.5 Anion Gap Estim Creat Clear Calc Estimated GFR POC Glucose Random Glucose Lactic Acid Lactic Acid F/U @ 2Hr 3.2 H* Calcium Total Bilirubin AST ALT Alkaline Phosphatase Total Protein Albumin Triglycerides Lipase Beta-Hydroxybutyrate Urine Color Yellow Urine Appearance Clear Urine pH 5.0 Ur Specific [place] 1.020 Urine Protein 300 (3+) H Urine Glucose (UA) >=1000 H Urine Ketones 15 Urine Blood Moderate (2+) H Urine Nitrite Negative Ur Leukocyte Esterase Negative Urine RBC 3-5 H Urine WBC 0-5 Ur Squamous Epith Cells 0-2 Urine Bacteria None Seen Hyaline Casts 3-5 Influenza Type A (PCR) Influenza Type B (PCR) RSV RNA Qual (PCR) SARS-CoV-2 RNA (RT-PCR) ECG Attestation: I personally reviewed and interpreted this ECG as follows: (NSR no ischemic changes) Prior ECG tracings: available for review Imaging Radiologist's Impressions: CXR Findings: Portions of the exam are obscured by overlying material. The lungs are clear. Heart size is normal. No acute fracture. IMPRESSION: 1. No acute findings ABD US Findings: The visualized pancreas is normal. The aorta and inferior vena cava are normal caliber. The appearance of the liver suggests fatty infiltration without focal lesion. There is no intrahepatic bile duct dilatation. The common duct is 4.0 mm in diameter. There is trace amount of gallbladder sludge. The gallbladder is otherwise normal. There is no sonographic Lima sign. The main portal vein is antegrade. The right kidney is partially visualized. No ascites. IMPRESSION: 1. Minimal gallbladder sludge. 2. Hepatic steatosis. ABD CT IMPRESSION: 1. Moderate distention of the urinary bladder. 2. Borderline dilatation of the renal collecting systems. This may be on the basis of bladder distention. Correlate with urinalysis. 3. There is mild debris within the gallbladder. This may represent sludge or tiny gallstones. Consider further evaluation with ultrasound if indicated. 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 Intractable abdominal pain with gallbladder sludge/GERD./ cannabis hyperemesis syndrome -lactic acid 2.2-3.2 gallbladder sludge noted -HIDA scan ordered -GI consult ordered -Protonix 40 IV b.i.d., holding oral famotidine and pantoprazole -NPO -Zofran as needed -IV fluids continue -change morphine to Dilaudid for pain management -patient counseled on the adverse effects of using marijuana daily, ruling out a GI component for patient's symptoms KARUNA on chronic kidney disease stage IIIA -hydration provided, patient has intermittent compliance issues with his antihypertensives and diabetes management -nephrology consulted -avoid hypotension and nephrotoxic meds including NSAIDs -holding losartan, Jardiance Leukocytosis/elevated lactic acid -Pt does not meet criteria for sepsis at this time -question of pyelonephritis on CT scan of the abdomen, urinalysis does not correlate -patient started on ceftriaxone in the ED and this will continue -GI workup also in progress, no obvious abd source found -IV fluids continue -Tylenol as needed for fever, patient has remained afebrile -follow blood cultures Insulin-dependent diabetes type 2 -sliding scale insulin ordered -continue long-term insulin -hold Jardiance due to KARUNA Hypertension -Continue patient's amlodipine and Coreg once nausea resolves -hydralazine prn IV for systolic >170 -Low sodium diet -telemetry Depression/anxiety -continue escitalopram, QTC within normal limits -patient has been using marijuana to cope with his anxiety, counseled on the adverse effects of marijuana use long-term DVT prophylaxis: Heparin subQ PPI prophylaxis: Protonix IV b.i.d. Med rec pending Patient is a full code Quality Stroke Does the patient have a stroke diagnosis?: No Reason for No Anti-thrombotic by Day Two: N/A - Med Ordered VTE Prior VTE?: No VTE Risk Level:: Medical - moderate - high VTE Device Contraindication: Treatment Not Tolerated VTE Drug Contraindication: N/A - Med Ordered
[2024-07-03 00:11] LABS: ~Lactic Acid-LAB USE ONLY 1.2 mmol/L (0.5-2.0)
[2024-07-03 00:22] LABS: Bilirubin Direct 0.3 mg/dL (0.0-0.5)
[2024-07-03] MEDS: Ibuprofen 600 MG TABLET PO (00:39)
[2024-07-03] MEDS: HYDROmorphone HCl 0.5 MG/0.5 ML SYRINGE IVPUSH ×2 (00:39→10:56)
[2024-07-03] MEDS: Heparin Sodium,Porcine 5,000 UNIT/ML VIAL 5000 UNIT SUBCUT ×4 (00:39→23:38)
[2024-07-03] MEDS: 0.9 % Sodium Chloride 500 ML IV (00:40)
[2024-07-03] MEDS: 0.9 % Sodium Chloride 1,000 ML 100 ML IVCONT ×2 (00:40→11:06)
[2024-07-03 01:20] LABS: Glucose, Whole Blood 205 mg/dL (60-115)
[2024-07-03] MEDS: Insulin Lispro 100 UNIT/ML 3 ML VIAL SUBCUT ×2 (01:24→14:05)
[2024-07-03] MEDS: hydrOXYzine HCL 50 MG TABLET PO (03:27)
[2024-07-03] MEDS: ondansetron HCL 4 MG/2 ML VIAL IVPUSH ×2 (03:27→13:05)
[2024-07-03] MEDS: Metoclopramide HCl 10 MG/2 ML VIAL IVPUSH (04:42)
[2024-07-03] MEDS: Lidocaine HCl Viscous 2 % 15 ML SOLUTION MUCOUS MEM (04:42)
[2024-07-03] MEDS: Haloperidol Lactate 5 MG/ML VIAL IM (04:42)
--- NOTE | 2024-07-03 04:52 | PC.NURSE ---
pt reporting epigastric pain/burning/nausea. pt medicated per MAY. BP was elevated, when speaking to MD, upon return to room pt was calmer, BP was WNL, no labetalol given, MD held.
--- NOTE | 2024-07-03 05:58 | PC.NURSE ---
pt resting comfortably at this time
[2024-07-03] MEDS: Pantoprazole Sodium 40 MG/10 ML VIAL IVPUSH ×2 (06:15→17:00)
[2024-07-03 06:45] LABS: Basophils Percent Auto 0.1 % (0-2); Hematocrit 30.1 % (42.0-52.0); Hemoglobin 10.7 g/dl (14.0-18.0); Imm Gran Abs Auto 0.02 X10*3/uL (0.00-0.03); Imm Gran Pct Auto 0.2 % (0.0-0.4); Lymphocytes Absolute Auto 1.4 X10*3/uL (1.2-4.9); Lymphocytes Percent Auto 14.2 % (20-40); MANUAL DIFF FLAG NO; Mean Corpuscular HGB Conc 35.5 g/dl (31.0-36.0); Mean Corpuscular Volume 84.3 fL (80.0-98.0); Mean Platelet Volume 9.5 fL (9.4-12.4); Monocytes Absolute Auto 0.9 X10*3/uL (0.1-1.2); Monocytes Percent Auto 9.9 % (2-11); Neutrophils Absolute Auto 7.2 x10*3/uL (2.0-8.3); Neutrophils Percent Auto 75.6 % (45-73); Platelet Count 190 X10*3/uL (160-400); Red Blood Count 3.57 X10*6/uL (4.60-5.80); Red Cell Distribution Width 11.9 % (11.0-16.0); White Blood Count 9.5 X10*3/uL (4.8-10.8)
[2024-07-03 07:02] LABS: Lactic Acid 0.9 mmol/L (0.5-2.0)
[2024-07-03 07:12] LABS: Alanine Aminotransferase 18 U/L (0-40); Albumin Level 3.5 g/dL (3.5-5.0); Alkaline Phosphatase 71 U/L (39-117); Anion Gap 17 (12-20); Aspartate Amino Transferase 18 U/L (5-37); Bilirubin Total 0.8 mg/dL (0.0-1.0); Blood Urea Nitrogen 38 mg/dL (9-16); Calcium 8.5 mg/dL (8.4-10.2); Carbon Dioxide 24 mmol/L (22-29); Chloride 97 mmol/L (96-108); Creatinine Clr Calc Pharmacy 66.5; Estimated Glomerular Filt Rate 44; Glucose Random 161 mg/dL (60-115); Magnesium 2.3 mg/dL (1.6-2.6); Potassium 4.2 mmol/L (3.3-5.1); Sodium 134 mmol/L (135-145); Total Protein 5.9 g/dL (6.5-8.0)
[2024-07-03 08:08] LABS: Glucose, Whole Blood 158 mg/dL (60-115)
--- NOTE | 2024-07-03 08:30 | P.CONNP_ITS ---
History of Present Illness Reason for Consult Consult date: 07/03/24 Chief Complaint Chief complaint: abd pain History of Present Illness Narrative: Patient is a 29 y/o male with a medical history of CKD 3a, HTN, DMII, GERD, HLD, retinal detachment left eye blind, depression, anxiety, marijuana dependence with canabis hyperemesis syndrome, previous alcohol and tobacco use (quit 1 year ago). ED 07/02 evening for epigastric pain, nausea, vomiting. Nephrology consulted for KARUNA. abdominal US with gallbladder sludge and hepatic steatosis. CT with moderate distention of urinary bladder, boderline dilatation of renal collecting systems- recommended to correlate with UA, which did not suggest infection. creatinine 03/15 1.72; 06/05 2.02, 06/06 1, 06/25 1.80, 07/02 2.4, 07/03 1.81 blood pressures 160s/70s this a.m. - BP meds held as pt unable to take PO (nausea/vomiting) patient has received multiple fluid boluses of LR and NS at 100mL/hr he states he continues to feel very nauseous and epigastric pain persists denies flank pain denies difficulty or pain with urination- states voided this a.m. comfortably states he was taking his medications including losartan and jardiance up to his hospitalization- he states he was vomiting for two days prior to presenting to the ED anxiety remains poorly controlled. States he was just able to start with a therapist, only had one session so far. Denies other new symptoms, concerns. Review of Systems Constitutional: Reports fatigue and Reports malaise Cardiovascular: Denies chest pain, Reports epigastric discomfort, Denies leg edema, Denies lightheadedness and Denies dyspnea Respiratory: Denies dyspnea Gastrointestinal: Reports abdominal pain (epigastric), Denies constipation, Denies diarrhea, Reports nausea and Reports vomiting Genitourinary: Denies hematuria, Denies oliguria, Denies dysuria and Denies flank pain Musculoskeletal: Denies muscle cramps Skin/Breast: Denies rash Psychiatric: Reports anxiety Endocrine: Reports fatigue PMFSH Past Medical History Medical History Cannabis hyperemesis syndrome concurrent with and due to cannabis dependence Cannabis use disorder Hypertension Anxiety Chest pain ADHD Generalized anxiety disorder Type 2 diabetes mellitus Hypertension Family History Family History Father HTN (hypertension) Mother Arthritis Sister Lupus (systemic lupus erythematosus) Surgical History Surgical History [place] teeth extracted History of appendectomy History of eye surgery (~06/2022) Social History Social History Household Members: Family Housing: Apartment Do you presently have visiting nurse or other home services: No Alcohol intake: former Patient Tobacco Use Status: Never used Tobacco e-Cigarette/Vaping Use: Never Used Second Hand Smoke Exposure: No (N/A) Substance Use Type: Marijuana Advance Directives Date on File: 11/01/23 service: No Travel History Ebola Risk: Travel/Contact With Anyone From Affected Area/s: No Has Patient Experienced Ebola Symptoms: No Meds Allergies Allergy/AdvReac Type Severity Reaction Status Date / Time No Known Allergies Allergy Verified 07/02/24 11:08 [No Known Allergies*] Active Medications: Current Medications Acetaminophen (Acetaminophen 325 Mg Tablet) 650 mg PO Q6H PRN PRN Reason: Pain, Mild 1-3,fever,headache Calcium Carbonate (Calcium Carbonate 750 Mg Tab.Chew) 750 mg PO Q4H PRN PRN Reason: Heartburn Ceftriaxone Sodium (Ceftriaxone Sodium 1 Gm Vial) 1 gm IVPUSH Q24H [facility] Dextrose (Dextrose 50 % 25 Gm/50 Ml Syringe) 25 gm IVPUSH Q15M PRN; Protocol PRN Reason: per Hypoglycemia Standing Ord. Glucose (Glucose Gel 15 Gm Gel..Gram.) 15 gm PO Q15M PRN; Protocol PRN Reason: per Hypoglycemia Standing Ord. Heparin Sodium (Porcine) (Heparin Sodium,Porcine 5,000 Unit/Ml Vial) 5,000 unit SUBCUT Q8H PRIYANKA Last Admin: 07/03/24 00:39 Dose: 5,000 unit Hydralazine HCl (Hydralazine Hcl 20 Mg/Ml Vial) 10 mg IVPUSH Q6H PRN; Protocol PRN Reason: SBP > 160 Hydromorphone HCl (Hydromorphone Hcl 0.5 Mg/0.5 Ml Syringe) 0.5 mg IVPUSH Q4H PRN; Protocol PRN Reason: Pain, Severe (Pain Scale 7-10) Last Admin: 07/03/24 00:39 Dose: 0.5 mg Sodium Chloride (Ns) 1,000 mls @ 100 mls/hr IVCONT .Q10H [facility] Last Admin: 07/03/24 00:40 Dose: 100 mls/hr Insulin Human Lispro (Insulin Lispro 100 Unit/Ml 3 Ml Vial) 0 unit SUBCUT Q6H [facility]; Protocol Last Admin: 07/03/24 07:47 Dose: Not Given Magnesium Hydroxide (Milk Of Magnesia 30 Ml Oral.Susp) 30 ml PO DAILY PRN PRN Reason: Constipation Melatonin (Melatonin 3 Mg Tablet) 6 mg PO BEDTIME PRN PRN Reason: Insomnia Ondansetron HCl (Ondansetron Hcl 4 Mg/2 Ml Vial) 4 mg IVPUSH Q8H PRN PRN Reason: Nausea and Vomiting Last Admin: 07/03/24 03:27 Dose: 4 mg Pantoprazole Sodium (Pantoprazole Sodium 40 Mg/10 Ml Vial) 40 mg IVPUSH BID@0630,1630 [facility] Last Admin: 07/03/24 06:15 Dose: 40 mg Polyethylene Glycol (Polyethylene Glycol 3350 17 Gm Powd.Pack) 17 gm PO DAILY PRN PRN Reason: Constipation Sodium Chloride (0.9 % Sodium Chloride Flush 3 Ml Syringe) 3 ml IVFLUSH QSHIFT [facility] Last Admin: 07/03/24 07:46 Dose: Not Given Home Medications ?Medication ?Instructions ?Recorded ?Confirmed ?Last Taken ?Type empagliflozin 10 mg tablet 10 mg PO DAILY 10/29/23 07/03/24 06/29/24 History (Jardiance) carvedilol 25 mg tablet 25 mg PO BID 02/06/24 07/03/24 06/29/24 History escitalopram oxalate 10 mg tablet 10 mg PO DAILY 02/25/24 07/03/24 06/29/24 History pantoprazole 40 mg tablet,delayed 40 mg PO DAILY@0630 03/16/24 07/03/24 06/29/24 History release insulin glargine 100 unit/mL (3 10 unit subcut BEDTIME 07/03/24 07/03/24 Unknown History mL) subcutaneous pen (Lantus Solostar U-100 Insulin) ondansetron HCl 4 mg tablet 8 mg PO Q8H PRN nausea/vomiting 07/03/24 07/03/24 Unknown History Physical Exam Vital Signs: Last Vital Signs Temp 98.2 F 07/03/24 08:11 Pulse 89 07/03/24 08:11 Resp 20 07/03/24 08:11 BP 160/74 H 07/03/24 08:11 Pulse Ox 98 07/03/24 08:11 O2 Del Method Room Air 07/03/24 08:11 BMI result Body Mass Index 34.5 Const General: no acute distress, alert and lethargic Orientation/consciousness: lethargic Resp Effort & Inspection: normal respiratory effort Auscultation: clear to auscultation bilaterally Cardio Jugular venous distension: no JVD Rate: regular rate Rhythm: regular rhythm Heart sounds: S1 normal heart sound present and S2 normal heart sound present GI Palpation (GI): Soft to palpation and nontender General: Yes no CVA tenderness Back/Spine/Pelvis Back: no CVA tenderness Skin Rashes: no rashes Extrem General: No edema Results Lab Results 07/03/24 06:40 07/03/24 06:40 Lab results: Chemistry 07/02/24 07/02/24 07/02/24 11:38 17:58 20:34 Sodium 134 L 138 137 Potassium 4.6 4.4 4.1 Carbon Dioxide 23 26 25 BUN 44 H 44 H 40 H Creatinine 2.40 H 2.27 H 2.15 H Calcium 9.8 D 9.1 D 8.7 07/03/24 06:40 Sodium 134 L Potassium 4.2 Carbon Dioxide 24 BUN 38 H Creatinine 1.81 H Calcium 8.5 Hematology 07/02/24 07/03/24 11:38 06:40 WBC 11.7 H 9.5 Hgb 12.7 L 10.7 L Plt Count 248 190 Urinalysis 07/02/24 21:30 Urine Color Yellow Urine Appearance Clear Urine pH 5.0 Ur Specific [place] 1.020 Urine Protein 300 (3+) H Urine Glucose (UA) >=1000 H Urine Ketones 15 Urine Blood Moderate (2+) H Urine Nitrite Negative Ur Leukocyte Esterase Negative Urine RBC 3-5 H Urine WBC 0-5 Ur Squamous Epith Cells 0-2 Hyaline Casts 3-5 Assessment and Plan (1) Acute kidney injury: Status: Acute (2) Acute dehydration: Status: Acute (3) Chronic kidney disease: Qualifiers: Chronic kidney disease stage: stage 2 (GFR 60-89) Qualified Code(s): N 18.2 - Chronic kidney disease, stage 2 (mild) Status: Acute (4) Uncontrolled hypertension: Status: Acute Plan KARUNA on CKD secondary to volume depletion from nausea/vomiting with concurrent use of ARB and SGLT2 inhibitor. creatinine has significantly improved with fluids overnight blood pressure subotpimally controlled- recommend 10mg labeolol IVP PRN for blood pressure control once patient is able to take PO, lakshmi re-start home carvedilol dose of 25mg PO BID recommend to continue to hold home losartan until patient's creatinine returns to baseline recommend avoiding precipitous drops in blood pressure avoid NSAIDs and other nephrotoxins continue regular blood pressure monitoring Discussed with Dr Guillaume Melgar Date of Service Date of Service: 07/03/24
--- NOTE | 2024-07-03 10:24 | MHC.CM.PN ---
pt lives with family has a ride home when dcd had no previous services dc plan home no services
--- NOTE | 2024-07-03 12:05 | P.CNGI_ITS ---
History of Present Illness Data of Consult Service Date: 07/03/24 Requesting physician: Nina Roman Primary Care Provider: CARL Gibbons HPI Reason for consult: Abd pain, N,V This is a 29-year-old gentleman with medical history of type 2 diabetes,HLD, hypertension, obesity, mild LVH who presented to the hospital for severe abdominal pain with nausea and vomiting found to have hyperglycemia with ketosis in glycosuria as well as KARUNA. History was obtained from the patient at bedside who states that pain much worse since the HIDA scan done earlier today. Also very nauseous. Does not feel like eating. With this he also reports constipation which he attributes to poor PO intake and hydration. Has had similar symptoms in the past, was seen in the ER last month as well. Was seen by GI as outpatient but has not yet had UGIS. Review of Systems 2 Review of Systems: Yes all other systems are reviewed and are negative [facility] Past Medical History Medical History Cannabis hyperemesis syndrome concurrent with and due to cannabis dependence Cannabis use disorder Hypertension Anxiety Chest pain ADHD Generalized anxiety disorder Type 2 diabetes mellitus Hypertension Family History Family History Father HTN (hypertension) Mother Arthritis Sister Lupus (systemic lupus erythematosus) Surgical History Surgical History [place] teeth extracted History of appendectomy History of eye surgery (~06/2022) Social History Social History Household Members: Family Housing: Apartment Do you presently have visiting nurse or other home services: No Alcohol intake: former Patient Tobacco Use Status: Never used Tobacco e-Cigarette/Vaping Use: Never Used Second Hand Smoke Exposure: No (N/A) Substance Use Type: Marijuana Advance Directives Date on File: 11/01/23 service: No Travel History Ebola Risk: Travel/Contact With Anyone From Affected Area/s: No Has Patient Experienced Ebola Symptoms: No Meds Allergies Allergy/AdvReac Type Severity Reaction Status Date / Time No Known Allergies Allergy Verified 07/02/24 11:08 [No Known Allergies*] Active Medications: Current Medications Acetaminophen (Acetaminophen 325 Mg Tablet) 650 mg PO Q6H PRN PRN Reason: Pain, Mild 1-3,fever,headache Calcium Carbonate (Calcium Carbonate 750 Mg Tab.Chew) 750 mg PO Q4H PRN PRN Reason: Heartburn Ceftriaxone Sodium (Ceftriaxone Sodium 1 Gm Vial) 1 gm IVPUSH Q24H PRIYANKA Dextrose (Dextrose 50 % 25 Gm/50 Ml Syringe) 25 gm IVPUSH Q15M PRN; Protocol PRN Reason: per Hypoglycemia Standing Ord. Glucose (Glucose Gel 15 Gm Gel..Gram.) 15 gm PO Q15M PRN; Protocol PRN Reason: per Hypoglycemia Standing Ord. Heparin Sodium (Porcine) (Heparin Sodium,Porcine 5,000 Unit/Ml Vial) 5,000 unit SUBCUT Q8H [facility] Last Admin: 07/03/24 11:05 Dose: 5,000 unit Hydralazine HCl (Hydralazine Hcl 20 Mg/Ml Vial) 10 mg IVPUSH Q6H PRN; Protocol PRN Reason: SBP > 160 Hydromorphone HCl (Hydromorphone Hcl 0.5 Mg/0.5 Ml Syringe) 0.5 mg IVPUSH Q4H PRN; Protocol PRN Reason: Pain, Severe (Pain Scale 7-10) Last Admin: 07/03/24 10:56 Dose: 0.5 mg Sodium Chloride (Ns) 1,000 mls @ 100 mls/hr IVCONT .Q10H [facility] Last Admin: 07/03/24 11:06 Dose: 100 mls/hr Insulin Human Lispro (Insulin Lispro 100 Unit/Ml 3 Ml Vial) 0 unit SUBCUT Q6H [facility]; Protocol Last Admin: 07/03/24 07:47 Dose: Not Given Magnesium Hydroxide (Milk Of Magnesia 30 Ml Oral.Susp) 30 ml PO DAILY PRN PRN Reason: Constipation Melatonin (Melatonin 3 Mg Tablet) 6 mg PO BEDTIME PRN PRN Reason: Insomnia Ondansetron HCl (Ondansetron Hcl 4 Mg/2 Ml Vial) 4 mg IVPUSH Q8H PRN PRN Reason: Nausea and Vomiting Last Admin: 07/03/24 03:27 Dose: 4 mg Pantoprazole Sodium (Pantoprazole Sodium 40 Mg/10 Ml Vial) 40 mg IVPUSH BID@0630,1630 [facility] Last Admin: 07/03/24 06:15 Dose: 40 mg Polyethylene Glycol (Polyethylene Glycol 3350 17 Gm Powd.Pack) 17 gm PO DAILY PRN PRN Reason: Constipation Sodium Chloride (0.9 % Sodium Chloride Flush 3 Ml Syringe) 3 ml IVFLUSH QSHIFT [facility] Last Admin: 07/03/24 07:46 Dose: Not Given Home Medications ?Medication ?Instructions ?Recorded ?Confirmed ?Last Taken ?Type empagliflozin 10 mg tablet 10 mg PO DAILY 10/29/23 07/03/24 06/29/24 History (Jardiance) carvedilol 25 mg tablet 25 mg PO BID 02/06/24 07/03/24 06/29/24 History escitalopram oxalate 10 mg tablet 10 mg PO DAILY 02/25/24 07/03/24 06/29/24 History pantoprazole 40 mg tablet,delayed 40 mg PO DAILY@0630 03/16/24 07/03/24 06/29/24 History release insulin glargine 100 unit/mL (3 10 unit subcut BEDTIME 07/03/24 07/03/24 Unknown History mL) subcutaneous pen (Lantus Solostar U-100 Insulin) ondansetron HCl 4 mg tablet 8 mg PO Q8H PRN nausea/vomiting 07/03/24 07/03/24 Unknown History Physical Exam 2 Vital Signs: Vital Signs: Last Vital Signs Temp 98.5 F 07/03/24 11:42 Pulse 84 07/03/24 11:42 Resp 16 07/03/24 11:42 BP 178/81 H 07/03/24 11:42 Pulse Ox 98 07/03/24 11:42 O2 Del Method Room Air 07/03/24 08:11 BMI result Body Mass Index 34.5 initially tremulous, required 2 person assist to transfer from wheelchair to hospital bed, however later on during the encounter got up from the bed without assistance to look for his phone and to use the restroom. abd soft, tender diffusely with guarding no overt resp distress A/Ox3, no focal deficits Results Labs 07/03/24 06:40 07/03/24 06:40 Labs: Short CBC 07/03/24 Range/Units 06:40 WBC 9.5 (4.8-10.8) X10*3/uL Hgb 10.7 L (14.0-18.0) g/dl Hct 30.1 L (42.0-52.0) % Plt Count 190 (160-400) X10*3/uL BMP 07/02/24 07/02/24 07/02/24 11:38 17:58 20:34 Sodium 134 L 138 137 Potassium 4.6 4.4 4.1 Chloride 91 L 97 98 Carbon Dioxide 23 26 25 BUN 44 H 44 H 40 H Creatinine 2.40 H 2.27 H 2.15 H Calcium 9.8 D 9.1 D 8.7 07/03/24 06:40 Sodium 134 L Potassium 4.2 Chloride 97 Carbon Dioxide 24 BUN 38 H Creatinine 1.81 H Calcium 8.5 Liver Function 07/02/24 07/02/24 07/02/24 Range/Units 11:38 17:58 20:34 Total Bilirubin 1.4 H 1.1 H 1.1 H (0.0-1.0) mg/dL Direct Bilirubin 0.3 (0.0-0.5) mg/dL AST 23 17 17 (5-37) U/L ALT 29 20 22 (0-40) U/L Alkaline Phosphatase 99 84 76 (39-117) U/L Albumin 4.4 3.9 3.6 (3.5-5.0) g/dL 07/03/24 Range/Units 06:40 Total Bilirubin 0.8 (0.0-1.0) mg/dL Direct Bilirubin (0.0-0.5) mg/dL AST 18 (5-37) U/L ALT 18 (0-40) U/L Alkaline Phosphatase 71 (39-117) U/L Albumin 3.5 (3.5-5.0) g/dL Urine 07/02/24 Range/Units 21:30 Urine Color Yellow Urine Appearance Clear Urine pH 5.0 (5.0-9.0) Ur Specific [place] 1.020 (1.005-1.025) Urine Protein 300 (3+) H (Neg-Trace) mg/dL Urine Glucose (UA) >=1000 H (Negative) mg/dL Assessment and Plan (1) Retrosternal chest pain: Status: Acute (2) Acute kidney injury: Status: Acute (3) Acute pyelonephritis: Status: Acute (4) Acidosis, lactic: Status: Acute (5) Hyperglycemia: Status: Acute (6) Type 2 diabetes mellitus: Qualifiers: Diabetes mellitus complication status: with hyperglycemia Diabetes mellitus retirement insulin use: with retirement use Qualified Code(s): E11.65 - Type 2 diabetes mellitus with hyperglycemia; Z79.4 - jail (current) use of insulin Status: Acute (7) Intractable vomiting with nausea: Status: Acute Plan CC is retrosternal burning pain with N/V. No odynophagia ro dysphagia reported. KARUNA improving. DDx includes cyclical vomiting vs cannabis hyperemesis vs delayed emptying 2/2 hyperglycemia. Suspect N/V likely has led to esophagitis that is causing pyrosis and heartburn. Degree of pain is difficult to assess and fluctuates as outlined above in exam. Plan: - minimize dilaudid as that can worsen i) gastric emptying and ii) N/V - OK to utilize po tylenol staggered with oxycodone - cont IV PPI bid - add mylanta or carafate for symptomatic relief - await hida results - consider trial of erythromycin 250 cc IV TID x 2 days - pls confirm normal QTc before starting this - Diet as tolerated - If HIDA normal and pt continues with N/V despite above interventions may need EGD Thank you for allowing me to participate in his care. Please do not hesitate to reach out for any questions or concerns. Procedures Date of Service Date of Service: 07/03/24
--- NOTE | 2024-07-03 13:20 | PHA.MEDREC ---
Pharmacy Consult ? Medication Reconciliation Pharmacy has completed the medication reconciliation. Tried to talk to patient but he was very drowsy and wanted us to contact Melinda for med list. Called and spoke to Melinda (health care proxy) and she was able to read off the bottles in the patient's medicine bags but she could not confirm the dose of lantus. Went and talked to patient again and he was able to confirm that he uses 10 units of lantus at night.
[2024-07-03 13:51] LABS: Glucose, Whole Blood 158 mg/dL (60-115)
[2024-07-03] MEDS: oxyCODONE HCl Immed Release 5 MG TABLET PO ×2 (14:06→23:36)
[2024-07-03] MEDS: carvediloL 25 MG TABLET PO (14:06)
--- NOTE | 2024-07-03 14:22 | PC.NURSE ---
BP elevated 192/88 pulse 86 ,PA Yuly notified ,Coreg administered,patient medicated for pain,will monitor
[2024-07-03] MEDS: Lactated Ringers 1,000 ML 100 ML IVCONT ×2 (14:24→23:38)
[2024-07-03] MEDS: 0.9 % Sodium Chloride Flush 3 ML SYRINGE IVFLUSH ×2 (17:01→20:04)
--- NOTE | 2024-07-03 17:42 | P.PNIM_ITS ---
Subjective Subjective Date of Service: 07/03/24 Interval History: Seen and examined this morning Follow-up for intractable nausea and vomiting Patient still feeling this morning nausea Constitutional Constitutional: Denies chills and Denies fever(s) ENT Ears, Nose, Mouth, and Throat: Denies dizziness Neurologic Neurologic: Denies dizziness Physical Exam 2 Vital Signs: Vital Signs: Last Vital Signs Temp 99.3 F 07/03/24 15:48 Pulse 87 07/03/24 15:48 Resp 18 07/03/24 15:48 BP 194/90 H 07/03/24 15:48 Pulse Ox 98 07/03/24 15:48 O2 Del Method Room Air 07/03/24 15:48 BMI result Body Mass Index 34.5 Const: General: alert and awake Nutritional Appearance: overweight O rientation/consciousness: patient oriented x3 Resp: Effort & Inspection: normal respiratory effort, able to speak in complete sentences, no respiratory distress and no use of accessory muscles Cardio: Rate: regular rate GI: Inspection: No distended Palpation (GI): Soft to palpation Neuro: Other: Grossly nonfocal General: patient oriented x3, moves all extremities and CN's II-XI intact bilaterally Objective Data Active Medications Acetaminophen (Acetaminophen 325 Mg Tablet) 650 mg PO Q6H PRN PRN Reason: Pain, Mild 1-3,fever,headache Calcium Carbonate (Calcium Carbonate 750 Mg Tab.Chew) 750 mg PO Q4H PRN PRN Reason: Heartburn Carvedilol (Carvedilol 25 Mg Tablet) 25 mg PO BID [facility]; Protocol Last Admin: 07/03/24 14:06 Dose: 25 mg Documented By: VON Ceftriaxone Sodium (Ceftriaxone Sodium 1 Gm Vial) 1 gm IVPUSH Q24H [facility] Dextrose (Dextrose 50 % 25 Gm/50 Ml Syringe) 25 gm IVPUSH Q15M PRN; Protocol PRN Reason: per Hypoglycemia Standing Ord. Escitalopram Oxalate (Escitalopram Oxalate 10 Mg Tablet) 10 mg PO DAILY [facility] Glucose (Glucose Gel 15 Gm Gel..Gram.) 15 gm PO Q15M PRN; Protocol PRN Reason: per Hypoglycemia Standing Ord. Heparin Sodium (Porcine) (Heparin Sodium,Porcine 5,000 Unit/Ml Vial) 5,000 unit SUBCUT Q8H [facility] Last Admin: 07/03/24 17:00 Dose: 5,000 unit Documented By: DAMION Lactated Ringer's (Lr) 1,000 mls @ 100 mls/hr IVCONT .Q10H [facility] Last Admin: 07/03/24 14:24 Dose: 100 mls/hr Documented By: VON Insulin Human Lispro (Insulin Lispro 100 Unit/Ml 3 Ml Vial) 0 unit SUBCUT Q6H [facility]; Protocol Last Admin: 07/03/24 14:05 Dose: 2 unit Documented By: VON Magnesium Hydroxide (Milk Of Magnesia 30 Ml Oral.Susp) 30 ml PO DAILY PRN PRN Reason: Constipation Melatonin (Melatonin 3 Mg Tablet) 6 mg PO BEDTIME PRN PRN Reason: Insomnia Ondansetron HCl (Ondansetron Hcl 4 Mg/2 Ml Vial) 4 mg IVPUSH Q8H PRN PRN Reason: Nausea and Vomiting Last Admin: 07/03/24 13:05 Dose: 4 mg Documented By: VON Oxycodone HCl (Oxycodone Hcl Immed Release 5 Mg Tablet) 5 mg PO Q6H PRN PRN Reason: Pain, Severe (Pain Scale 7-10) Last Admin: 07/03/24 14:06 Dose: 5 mg Documented By: VON Pantoprazole Sodium (Pantoprazole Sodium 40 Mg/10 Ml Vial) 40 mg IVPUSH BID@0630,1630 [facility] Last Admin: 07/03/24 17:00 Dose: 40 mg Documented By: DAMION Polyethylene Glycol (Polyethylene Glycol 3350 17 Gm Powd.Pack) 17 gm PO DAILY PRN PRN Reason: Constipation Prochlorperazine Edisylate (Prochlorperazine Edisylate 10 Mg/2 Ml Vial) 5 mg IVPUSH Q6H PRN PRN Reason: nausea/vomiting, 2nd Sodium Chloride (0.9 % Sodium Chloride Flush 3 Ml Syringe) 3 ml IVFLUSH QSHIFT [facility] Last Admin: 07/03/24 17:01 Dose: 3 ml Documented By: DAMION Labs 07/03/24 06:40 07/03/24 06:40 Labs: Laboratory Results - last 24 hr 07/02/24 07/02/24 07/02/24 17:58 18:53 20:34 MCV MCH MCHC RDW Plt Count MPV Immature Gran % (Auto) Neut % (Auto) Lymph % (Auto) [place] % (Auto) Eos % (Auto) Baso % (Auto) Lymph # (Auto) [place] # (Auto) Eos # (Auto) Baso # (Auto) Abs Immat Gran (auto) Absolute Neuts (auto) Absolute Nucleated RBC Nucleated RBC % (auto) VBG pH VBG pCO2 VBG pO2 VBG HCO3 VBG O2 Saturation VBG Base Excess Anion Gap 19 18 Estim Creat Clear Calc 53.0 56.0 Estimated GFR 34 36 POC Glucose Random Glucose 171 H 183 H Lactic Acid 2.2 H* Lactic Acid F/U @ 2Hr Lactic Acid F/U @ 4Hr Calcium 9.1 D 8.7 Magnesium Total Bilirubin 1.1 H 1.1 H Direct Bilirubin 0.3 AST 17 17 ALT 20 22 Alkaline Phosphatase 84 76 Total Protein 6.6 6.1 L Albumin 3.9 3.6 Beta-Hydroxybutyrate 1.68 H Urine Color Urine Appearance Urine pH Ur Specific [place] Urine Protein Urine Glucose (UA) Urine Ketones Urine Blood Urine Nitrite Ur Leukocyte Esterase Urine RBC Urine WBC Ur Squamous Epith Cells Urine Bacteria Hyaline Casts Influenza Type A (PCR) NEGATIVE Influenza Type B (PCR) NEGATIVE RSV RNA Qual (PCR) NEGATIVE SARS-CoV-2 RNA (RT-PCR) NEGATIVE 07/02/24 07/02/24 07/02/24 20:49 21:30 23:51 MCV MCH MCHC RDW Plt Count MPV Immature Gran % (Auto) Neut % (Auto) Lymph % (Auto) [place] % (Auto) Eos % (Auto) Baso % (Auto) Lymph # (Auto) [place] # (Auto) Eos # (Auto) Baso # (Auto) Abs Immat Gran (auto) Absolute Neuts (auto) Absolute Nucleated RBC Nucleated RBC % (auto) VBG pH 7.49 H VBG pCO2 37 VBG pO2 80 VBG HCO3 28 H VBG O2 Saturation 97.0 VBG Base Excess 5.5 Anion Gap Estim Creat Clear Calc Estimated GFR POC Glucose Random Glucose Lactic Acid Lactic Acid F/U @ 2Hr 3.2 H* Lactic Acid F/U @ 4Hr 1.2 Calcium Magnesium Total Bilirubin Direct Bilirubin AST ALT Alkaline Phosphatase Total Protein Albumin Beta-Hydroxybutyrate Urine Color Yellow Urine Appearance Clear Urine pH 5.0 Ur Specific [place] 1.020 Urine Protein 300 (3+) H Urine Glucose (UA) >=1000 H Urine Ketones 15 Urine Blood Moderate (2+) H Urine Nitrite Negative Ur Leukocyte Esterase Negative Urine RBC 3-5 H Urine WBC 0-5 Ur Squamous Epith Cells 0-2 Urine Bacteria None Seen Hyaline Casts 3-5 Influenza Type A (PCR) Influenza Type B (PCR) RSV RNA Qual (PCR) SARS-CoV-2 RNA (RT-PCR) 07/03/24 07/03/24 07/03/24 01:15 06:40 08:01 MCV 84.3 MCH 30.0 MCHC 35.5 RDW 11.9 Plt Count 190 MPV 9.5 Immature Gran % (Auto) 0.2 Neut % (Auto) 75.6 H Lymph % (Auto) 14.2 L [place] % (Auto) 9.9 Eos % (Auto) 0.0 Baso % (Auto) 0.1 Lymph # (Auto) 1.4 [place] # (Auto) 0.9 Eos # (Auto) 0.0 Baso # (Auto) 0.0 Abs Immat Gran (auto) 0.02 Absolute Neuts (auto) 7.2 Absolute Nucleated RBC 0.000 Nucleated RBC % (auto) 0.0 VBG pH VBG pCO2 VBG pO2 VBG HCO3 VBG O2 Saturation VBG Base Excess Anion Gap 17 Estim Creat Clear Calc 66.5 Estimated GFR 44 POC Glucose 205 H 158 H Random Glucose 161 H Lactic Acid 0.9 Lactic Acid F/U @ 2Hr Lactic Acid F/U @ 4Hr Calcium 8.5 Magnesium 2.3 Total Bilirubin 0.8 Direct Bilirubin AST 18 ALT 18 Alkaline Phosphatase 71 Total Protein 5.9 L Albumin 3.5 Beta-Hydroxybutyrate Urine Color Urine Appearance Urine pH Ur Specific [place] Urine Protein Urine Glucose (UA) Urine Ketones Urine Blood Urine Nitrite Ur Leukocyte Esterase Urine RBC Urine WBC Ur Squamous Epith Cells Urine Bacteria Hyaline Casts Influenza Type A (PCR) Influenza Type B (PCR) RSV RNA Qual (PCR) SARS-CoV-2 RNA (RT-PCR) 07/03/24 13:46 MCV MCH MCHC RDW Plt Count MPV Immature Gran % (Auto) Neut % (Auto) Lymph % (Auto) [place] % (Auto) Eos % (Auto) Baso % (Auto) Lymph # (Auto) [place] # (Auto) Eos # (Auto) Baso # (Auto) Abs Immat Gran (auto) Absolute Neuts (auto) Absolute Nucleated RBC Nucleated RBC % (auto) VBG pH VBG pCO2 VBG pO2 VBG HCO3 VBG O2 Saturation VBG Base Excess Anion Gap Estim Creat Clear Calc Estimated GFR POC Glucose 158 H Random Glucose Lactic Acid Lactic Acid F/U @ 2Hr Lactic Acid F/U @ 4Hr Calcium Magnesium Total Bilirubin Direct Bilirubin AST ALT Alkaline Phosphatase Total Protein Albumin Beta-Hydroxybutyrate Urine Color Urine Appearance Urine pH Ur Specific [place] Urine Protein Urine Glucose (UA) Urine Ketones Urine Blood Urine Nitrite Ur Leukocyte Esterase Urine RBC Urine WBC Ur Squamous Epith Cells Urine Bacteria Hyaline Casts Influenza Type A (PCR) Influenza Type B (PCR) RSV RNA Qual (PCR) SARS-CoV-2 RNA (RT-PCR) Assessment and Plan (1) KARUNA (acute kidney injury): Status: Acute (2) Intractable vomiting with nausea: Status: Acute Plan Patient is a 29-year-old male with past medical history of hypertension, insulin-dependent diabetes type 2, GERD, hyperlipidemia, 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 Intractable abdominal pain with gallbladder sludge/GERD./ cannabis hyperemesis syndrome HIDA negative Continue IV PPI Continue antiemetics, IV fluid NPO Seen by GI-recommends avoiding Dilaudid as can make nausea worse, start carafate If symptoms continue may need endoscopy patient counseled on the adverse effects of using marijuana daily, ruling out a GI component for patient's symptoms consider erythromycin trial if no improvement in am KARUNA on chronic kidney disease stage IIIA Due to volume depletion from nausea/vomiting with concurrent use of ARB and SGLT2 inhibitor Continue IV fluid nephrology following avoid hypotension and nephrotoxic meds including NSAIDs holding losartan, Jardiance Leukocytosis/elevated lactic acid Pt does not meet criteria for sepsis at this time No urinary symptoms, urinalysis negative will stop IV ceftriaxone Insulin-dependent diabetes type 2 hold long acting insulin due to NPO status cover with sliding scale hold Jardiance Hypertension Resume home dose of Coreg Nephrology recommends against the use of hydralazine as this can cause precipitous drop in blood pressure P.r.n. IV labetalol Depression/anxiety continue escitalopram, QTC within normal limits DVT prophylaxis: Heparin subQ Requires ongoing inpatient stay due to persistent nausea/vomiting, inability to take p.o. Quality Stroke Does the patient have a stroke diagnosis?: No Reason for No Anti-thrombotic by Day Two: N/A - Med Ordered VTE Prior VTE?: No VTE Risk Level:: Medical - moderate - high VTE Device Contraindication: Treatment Not Tolerated VTE Drug Contraindication: N/A - Med Ordered
[2024-07-03 19:53] LABS: Glucose, Whole Blood 143 mg/dL (60-115)
[2024-07-03] MEDS: cefTRIAXone sodium 1 GM VIAL IVPUSH (20:01)
[2024-07-03] MEDS: Labetalol HCL 100 MG/20 ML VIAL 10 MG IVPUSH (20:08)
[2024-07-03 23:53] LABS: Glucose, Whole Blood 153 mg/dL (60-115)
[2024-07-04] VITALS (12 sets, daily range): BP systolic 176–222; BP diastolic 81–98; PULSE 68–92; RESP 14–20; TEMP 36.6–37.4; O2SAT 96–98
[2024-07-04] MEDS: Labetalol HCL 100 MG/20 ML VIAL 20 MG IVPUSH ×2 (03:46→23:51)
[2024-07-04] MEDS: Pantoprazole Sodium 40 MG/10 ML VIAL IVPUSH ×2 (06:10→15:47)
[2024-07-04 06:20] LABS: Glucose, Whole Blood 107 mg/dL (60-115)
[2024-07-04] MEDS: Heparin Sodium,Porcine 5,000 UNIT/ML VIAL 5000 UNIT SUBCUT ×3 (07:44→23:51)
[2024-07-04] MEDS: carvediloL 25 MG TABLET PO ×2 (07:44→20:55)
[2024-07-04] MEDS: Escitalopram Oxalate 10 MG TABLET PO (07:44)
[2024-07-04] MEDS: Sucralfate Oral Suspension 1 GM/10 ML ORAL.SUSP PO ×4 (07:44→20:55)
[2024-07-04] MEDS: 0.9 % Sodium Chloride Flush 3 ML SYRINGE IVFLUSH ×3 (07:45→20:59)
[2024-07-04] MEDS: LORazepam 0.5 MG TABLET PO ×2 (08:09→15:47)
[2024-07-04 08:27] LABS: Anion Gap 14 (12-20); Blood Urea Nitrogen 24 mg/dL (9-16); Calcium 8.5 mg/dL (8.4-10.2); Carbon Dioxide 27 mmol/L (22-29); Chloride 100 mmol/L (96-108); Creatinine Clr Calc Pharmacy 84.8; Estimated Glomerular Filt Rate 58; Glucose Random 115 mg/dL (60-115); Potassium 3.9 mmol/L (3.3-5.1); Sodium 137 mmol/L (135-145)
[2024-07-04 11:37] LABS: Glucose, Whole Blood 201 mg/dL (60-115)
[2024-07-04] MEDS: Insulin Lispro 100 UNIT/ML 3 ML VIAL SUBCUT ×3 (12:01→20:58)
--- NOTE | 2024-07-04 12:15 | PC.NURSE ---
Patients systolic blood pressure was elevated this am at 184. Was also complaining of anxiety and requesting anxiety meds. ANGEL Shearer was contacted for new orders for anxiety meds and to inform her of the elevated bp. Opal ordered a one time dose of lorazepam 0.5mg with good effec tanmaeve advised this RN to give scheduled meds for bp and hold the prn labetolol. Scheduled meds given. Will continue to monitor
[2024-07-04] MEDS: Labetalol HCL 100 MG/20 ML VIAL 10 MG IVPUSH (15:34)
[2024-07-04] MEDS: Losartan Potassium 50 MG TABLET PO (15:47)
--- NOTE | 2024-07-04 15:51 | HO.PM.IMPN ---
Subjective Subjective Date of Service: 07/04/24 Interval History: seen and examined this morning follow up for nausea/vomiting no further vomiting initially sleeping with head under sheet, when i told him his food was at bedside he sat up quickly and asked for his dann to be repositioned. he is eager to eat breakfast Physical Exam Vital Signs: Vital Signs: Last Vital Signs Temp 98.9 F 07/04/24 15:24 Pulse 74 07/04/24 15:34 Resp 14 07/04/24 15:24 BP 212/90 H 07/04/24 15:34 Pulse Ox 96 07/04/24 15:24 O2 Del Method Room Air 07/04/24 15:24 BMI result Body Mass Index 34.5 Const: General: alert and awake Nutritional Appearance: overweight Orientation/consciousness: patient oriented x3 Resp: Effort & Inspection: normal respiratory effort, able to speak in complete sentences, no respiratory distress and no use of accessory muscles Cardio: Rate: regular rate GI: Inspection: No distended Palpation (GI): Soft to palpation Neuro: Other: Grossly nonfocal General: patient oriented x3, moves all extremities and CN's II-XI intact bilaterally Objective Data Active Medications Acetaminophen (Acetaminophen 325 Mg Tablet) 650 mg PO Q6H PRN PRN Reason: Pain, Mild 1-3,fever,headache Calcium Carbonate (Calcium Carbonate 750 Mg Tab.Chew) 750 mg PO Q4H PRN PRN Reason: Heartburn Carvedilol (Carvedilol 25 Mg Tablet) 25 mg PO BID [facility]; Protocol Last Admin: 07/04/24 07:44 Dose: 25 mg Documented By: JORDI Dextrose (Dextrose 50 % 25 Gm/50 Ml Syringe) 25 gm IVPUSH Q15M PRN; Protocol PRN Reason: per Hypoglycemia Standing Ord. Escitalopram Oxalate (Escitalopram Oxalate 10 Mg Tablet) 10 mg PO DAILY [facility] Last Admin: 07/04/24 07:44 Dose: 10 mg Documented By: JORDI Famotidine (Famotidine 20 Mg Tablet) 20 mg PO BEDTIME [facility] Glucose (Glucose Gel 15 Gm Gel..Gram.) 15 gm PO Q15M PRN; Protocol PRN Reason: per Hypoglycemia Standing Ord. Heparin Sodium (Porcine) (Heparin Sodium,Porcine 5,000 Unit/Ml Vial) 5,000 unit SUBCUT Q8H [facility] Last Admin: 07/04/24 15:47 Dose: 5,000 unit Documented By: JORDI Insulin Human Lispro (Insulin Lispro 100 Unit/Ml 3 Ml Vial) 0 unit SUBCUT Q6H [facility]; Protocol Last Admin: 07/04/24 12:01 Dose: 4 unit Documented By: JORDI Labetalol HCl (Labetalol Hcl 100 Mg/20 Ml Vial) 10 mg IVPUSH Q8H PRN PRN Reason: SBP>180 Last Admin: 07/04/24 15:34 Dose: 10 mg Documented By: JORDI Lorazepam (Lorazepam 0.5 Mg Tablet) 0.5 mg PO Q6H PRN PRN Reason: Anxiety Last Admin: 07/04/24 15:47 Dose: 0.5 mg Documented By: JORDI Losartan Potassium (Losartan Potassium 50 Mg Tablet) 50 mg PO DAILY [facility]; Protocol Last Admin: 07/04/24 15:47 Dose: 50 mg Documented By: JORDI Magnesium Hydroxide (Milk Of Magnesia 30 Ml Oral.Susp) 30 ml PO DAILY PRN PRN Reason: Constipation Melatonin (Melatonin 3 Mg Tablet) 6 mg PO BEDTIME PRN PRN Reason: Insomnia Ondansetron HCl (Ondansetron Hcl 4 Mg/2 Ml Vial) 4 mg IVPUSH Q8H PRN PRN Reason: Nausea and Vomiting Last Admin: 07/03/24 13:05 Dose: 4 mg Documented By: VON Oxycodone HCl (Oxycodone Hcl Immed Release 5 Mg Tablet) 5 mg PO Q6H PRN PRN Reason: Pain, Severe (Pain Scale 7-10) Last Admin: 07/03/24 23:36 Dose: 5 mg Documented By: DAYANA Pantoprazole Sodium (Pantoprazole Sodium 40 Mg/10 Ml Vial) 40 mg IVPUSH BID@0630,1630 [facility] Last Admin: 07/04/24 15:47 Dose: 40 mg Documented By: JORDI Polyethylene Glycol (Polyethylene Glycol 3350 17 Gm Powd.Pack) 17 gm PO DAILY PRN PRN Reason: Constipation Prochlorperazine Edisylate (Prochlorperazine Edisylate 10 Mg/2 Ml Vial) 5 mg IVPUSH Q6H PRN PRN Reason: nausea/vomiting, 2nd Sodium Chloride (0.9 % Sodium Chloride Flush 3 Ml Syringe) 3 ml IVFLUSH QSHIFT [facility] Last Admin: 07/04/24 15:47 Dose: 3 ml Documented By: JORDI Sucralfate (Sucralfate Oral Suspension 1 Gm/10 Ml Oral.Susp) 1 gm PO QIDACHS [facility] Last Admin: 07/04/24 15:47 Dose: 1 gm Documented By: JORDI Labs 07/03/24 06:40 07/04/24 07:43 Labs: Laboratory Results - last 24 hr 07/03/24 07/03/24 07/04/24 19:28 23:48 06:16 Anion Gap Estim Creat Clear Calc Estimated GFR POC Glucose 143 H 153 H 107 Random Glucose Calcium 07/04/24 07/04/24 07:43 11:34 Anion Gap 14 Estim Creat Clear Calc 84.8 Estimated GFR 58 POC Glucose 201 H Random Glucose 115 Calcium 8.5 Microbiology Microbiology Results: Microbiology 07/02/24 18:58 Blood Culture - Preliminary Blood - Venous No growth after 24 hours. 07/02/24 18:53 Blood Culture - Preliminary Blood - Venous No growth after 24 hours. 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 Intractable abdominal pain h/o cannabis hyperemesis gallbladder sludge on imaging, but LFTs normal and Hida negative Continue IV PPI Stop IV fluid, advance diet Seen by GI-recommends avoiding Dilaudid as can make nausea worse, start carafate If symptoms continue may need endoscopy patient counseled on the adverse effects of using marijuana daily consider erythromycin trial if no improvement in am KARUNA on chronic kidney disease stage IIIA Due to volume depletion from nausea/vomiting with concurrent use of ARB and SGLT2 inhibitor improved with IVF avoid hypotension and nephrotoxic meds including NSAIDs hold Jardiance outpatient follow up with nephrology Leukocytosis/acute lactic acidosis Leukocytosis, lactic acidosis resolved No evidence of acute infection, likely due to dehydration/vomiting Insulin-dependent diabetes type 2 hold long acting insulin until tolerating full diet cover with sliding scale as needed hold Jardiance Hypertension Resume home dose of Coreg, resume losartan now that renal function has improved Nephrology recommends against the use of hydralazine as this can cause precipitous drop in blood pressure P.r.n. IV labetalol Depression/anxiety continue escitalopram, QTC within normal limits DVT prophylaxis: Heparin subQ Requires ongoing inpatient stay due to persistent nausea/vomiting, inability to take p.o. Quality Stroke Does the patient have a stroke diagnosis?: No Reason for No Anti-thrombotic by Day Two: N/A - Med Ordered VTE Prior VTE?: No VTE Risk Level:: Medical - moderate - high VTE Device Contraindication: Treatment Not Tolerated VTE Drug Contraindication: N/A - Med Ordered
[2024-07-04 16:07] LABS: Glucose, Whole Blood 156 mg/dL (60-115)
[2024-07-04] MEDS: amLODIPine Besylate 5 MG TABLET PO (17:02)
[2024-07-04] MEDS: oxyCODONE HCl Immed Release 5 MG TABLET PO (17:36)
--- NOTE | 2024-07-04 17:47 | ECG_ITS ---
Test Reason : chest pain Blood Pressure : */* mmHG Vent. Rate : 69 BPM Atrial Rate : 69 BPM P-R Int : 128 ms QRS Dur : 98 ms QT Int : 378 ms P-R-T Axes : 145 -6 136 degrees QTcB Int : 405 ms Normal sinus rhythm Low voltage QRS Lateral infarct , age undetermined Abnormal ECG When compared with ECG of 02-Jul-2024 11:32, Lateral infarct is now Present Nonspecific T wave abnormality now evident in Inferior leads Referred By: Yuly Shearer Electronically Signed By: JEANE LAMA
[2024-07-04] MEDS: Famotidine/PF 20 MG/2 ML VIAL IVPUSH (18:29)
[2024-07-04] MEDS: hydrOXYzine HCL 25 MG TABLET PO (18:29)
[2024-07-04 20:06] LABS: Glucose, Whole Blood 161 mg/dL (60-115)
[2024-07-04] MEDS: Famotidine 20 MG TABLET PO (20:55)
[2024-07-04] MEDS: Acetaminophen 325 MG TABLET 650 MG PO (21:03)
[2024-07-04] MEDS: Melatonin 3 MG TABLET 6 MG PO (21:03)
[2024-07-04] MEDS: Nitroglycerin 2 % Oint 1 GM Packet 1 INCH TRANSDERMA (23:51)
[2024-07-05 01:14] VITALS: BP 173/85; PULSE 62; RESP 18
--- NOTE | 2024-07-05 01:18 | PC.NURSE ---
2320- pATIENT TO CONTINUE WITH ELEVATED BLOOD PRESSURE, 97.9-77-20-204/98. MEDICATED AT 2100 WITH TYLENOL FOR HEADACHE AND MELATONIN FOR SLEEP AIDE. PATIENT OFFERING NO COMPLAINTS AT THIS TIME. HOSPITALIST ALERTED TO ONGOING BP READINGS. ORDERS RECEIVED, SEE SELINA, FOR NITRO PASTE AND IVP LABETALOL, NOTED LABETALOL HAS BEEN GIVEN PAST FEW DAYS WITH MINIMAL EFFECT AND MADE AWARE. HE ORDERED 20MG IVP WITH THE PASTE. NURSING DRILL RUNNER ALERTED TO ADMINISTER MEDICATION FOR THIS OCCUPATIONAL THERAPIST ASSISTANT AND SHE SENT A CARDIAC NURSE TO HELP AT 2351. IVP LITTLE DELAYED NEW IV SITE WAS NEEDED. #20 INSERTED AT LEFT WRIST BY CHARGE NURSE. BP READING WAS 180/82, THEN AT 0120 173/85-62. TELE-MONITOR IN USE WITH CARDIAC RHYTHM SHOWING NSR PER [facility]. PATIENT RESTING QUIETLY AND WILL CONTINUE TO MONITOR. NITRO PASTE NOTED TO LEFT CHEST.
[2024-07-05 02:07] VITALS: BP 176/82; PULSE 62; RESP 18
--- NOTE | 2024-07-05 02:13 | PC.NURSE ---
Addendum entered by Shannon Mills RN 07/05/24 05:47: 0310-NO NEW ORDERS RECEIVED FROM BELOW NOTE, BLOOD PRESSURE AT 0310, 169/78-68 Original Note: 0210-BLOOD PRESSURE CHECK AT THIS TIME, 176/88-62, REPORTED TO HOSPITALIST ON DUTY FOR UPDATE, PATIENT NAPPING QUIETLY, WILL CONTINUE TO MONITOR
[2024-07-05 03:08] VITALS: BP 169/78; PULSE 68; RESP 16; TEMP 36.8; O2SAT 98
[2024-07-05] MEDS: Pantoprazole Sodium 40 MG/10 ML VIAL IVPUSH (06:06)
[2024-07-05] MEDS: oxyCODONE HCl Immed Release 5 MG TABLET PO (06:10)
[2024-07-05 07:24] VITALS: BP 147/80; PULSE 86; RESP 15; TEMP 37.1; O2SAT 94
[2024-07-05] MEDS: Losartan Potassium 50 MG TABLET PO (07:38)
[2024-07-05 07:39] LABS: Glucose, Whole Blood 134 mg/dL (60-115)
[2024-07-05] MEDS: Escitalopram Oxalate 10 MG TABLET PO (07:39)
[2024-07-05] MEDS: hydrOXYzine HCL 25 MG TABLET PO (07:39)
[2024-07-05] MEDS: amLODIPine Besylate 5 MG TABLET PO (07:39)
[2024-07-05] MEDS: Acetaminophen 325 MG TABLET 650 MG PO (07:39)
[2024-07-05] MEDS: carvediloL 25 MG TABLET PO (07:39)
[2024-07-05] MEDS: Heparin Sodium,Porcine 5,000 UNIT/ML VIAL 5000 UNIT SUBCUT (07:39)
[2024-07-05] MEDS: 0.9 % Sodium Chloride Flush 3 ML SYRINGE IVFLUSH (07:40)
[2024-07-05] MEDS: Sucralfate Oral Suspension 1 GM/10 ML ORAL.SUSP PO ×2 (07:40→11:40)
[2024-07-05 07:54] VITALS: BP 147/80; PULSE 86; RESP 18; TEMP 36; O2SAT 95
[2024-07-05 11:21] LABS: Glucose, Whole Blood 149 mg/dL (60-115)
[2024-07-05] MEDS: Butalb/Acetamin/Caff 50/325/40 TABLET 1 TAB PO (11:40)
[2024-07-05 12:55] VITALS: BP 165/71
--- NOTE | 2024-07-05 12:59 | P.DS_ITS ---
DS: Providers Provider Date of Service: 07/05/24 Date of admission: 07/02/24 23:33 Date of discharge: 07/05/24 Primary care physician: CARL Gibbons Consults: 07/03/24 00:25 Consult to Gastroenterology Routine Consulting Provider: Juan Mensah Reason for consultation: intractable abd pain, gallbladdr sludge, severe GERD Has provider been notified: No 07/03/24 00:26 Consult to Nephrology Routine Consulting Provider: [facility] Reason for consultation: KARUNA ojn CKD 3a Has provider been notified: No Attending physician on discharge: At[facility] Discharging clinician: Yuly Shearer DS: Diagnosis Discharge Diagnosis (1) Intractable vomiting with nausea: Status: Acute (2) Acute kidney injury: Status: Acute (3) Acidosis, lactic: Status: Acute DS: Summary Hospital Course Hospital Course: From H&P on the day of admission Patient is a 29-year-old male with past medical history of hypertension, insulin-dependent diabetes type 2, GERD, hyperlipidemia, 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 Patient was not able to take his pantoprazole due to the vomiting. Patient denies any chills, fevers, night sweats at home. Patient was not using marijuana for a couple of days and then used it last night and felt better for a short period of time. Diagnostic workup including an abdominal ultrasound indicated gallbladder sludge and hepatic steatosis. Common bile duct 4 mm in diameter. No evidence of Lima's sign. No ascites. Abdominal CT with borderline evidence of pyelonephritis. UA does not correlate for UTI. Patient had notable bladder distention. Lactic acid 2.2 then 3.4 with a leukocytosis. Patient was started on ceftriaxone in the emergency department. Patient continues to have abdominal pain which results in an upper body tremulous disposition but patient remains alert and orientated at all times. Patient has had emesis but denies seeing any blood. Patient denies history of seizure. Patient does not believe the pain is correlating to chest pain. EKG reassuring normal sinus rhythm with no ischemic changes. Patient does not require oxygen at this time. Patient states the esophageal [place] has worse over time. Patient reports he has multiple stressors at home including caring for an autistic child, and marital problems but patient currently denies any suicidal ideations. Patient is a [id number] dad and his spouse works outside the home. Patient uses marijuana usually daily to help with his anxiety. Patient was seen by Nephrology back in March 2024, noting patient has again KARUNA, and found that patient was not always taking his antihypertensives on a daily basis and control of his diabetes has been off and on. Patient has been diagnosed with chronic kidney disease stage IIIA related to his diabetes uncontrolled Hypertension Continued on baseline dose of Coreg, initially home dose of losartan was placed on hold due to KARUNA. Patient's blood pressure remained uncontrolled and he got multiple doses of IV labetalol while inpatient. Patient was previously on Norvasc, 5 mg was added to his regimen with improvement in his blood pressure. Blood pressure has improved significantly although remains above goal. Per outpatient notes patient has frequently elevated blood pressures, compliance has been questioned. Recommend outpatient follow-up with Nephrology and compliance with medication was discussed. Patient is requesting to be discharged home. Intractable abdominal pain with nausea and vomiting possibly due to cannabis hyperemesis vs diabetic gastroparesis (has not been diagnosed) gallbladder sludge also seen on imaging, but LFTs normal and Hida negative Was treated with IV PPI, IV fluids. Abdominal pain resolved and diet was slowly advanced. Patient is tolerating a regular diet. Seen by GI and recommended trial of erythromycin if no improvement however patient improved prior to treatment with erythromycin. KARUNA on chronic kidney disease stage IIIA Due to volume depletion from nausea/vomiting with concurrent use of ARB and SGLT2 inhibitor improved with IVF. We will need outpatient follow-up with Nephrology Leukocytosis/acute lactic acidosis. Both have resolved. No evidence of acute infection, likely due to dehydration/vomiting Insulin-dependent diabetes type 2 Resume home meds upon discharge Time Attestation Discharge Coordination Time (in mins): 36 Quality: Safe Use of Opioids Does Pt have an Active Cancer Diagnosis on the Problem List?: No Quality: Stroke Does the patient have a stroke diagnosis?: No Physical Exam Vital Signs: Vital Signs: Last Vital Signs Temp 96.8 F 07/05/24 07:54 Pulse 86 07/05/24 07:54 Resp 18 07/05/24 07:54 BP 165/71 H 07/05/24 12:55 Pulse Ox 95 07/05/24 07:54 O2 Del Method Room Air 07/05/24 07:54 BMI result Body Mass Index 34.5 Const: General: cooperative, comfortable, alert and awake Nutritional Appearance: obese Orientation/consciousness: patient oriented x3 Neuro: Other: left eye remains close (history of blindness due to failed surgery) General: patient oriented x3, moves all extremities and CN's II-XI intact bilaterally DS: Data Data Completed and Pending Labs on day of discharge: Laboratory Results - last 24 hr 07/04/24 07/04/24 07/05/24 16:02 19:47 07:29 POC Glucose 156 H 161 H 134 H 07/05/24 11:18 POC Glucose 149 H Preliminary micro results at discharge 07/02/24 18:58 Blood Culture - Preliminary Blood - Venous No growth after 48 hours. 07/02/24 18:53 Blood Culture - Preliminary Blood - Venous No growth after 48 hours. Discharge Plan Discharge Anticipated Discharge Date/Time: 07/05/24 13:10 Patient Disposition: Home, Self-Care Discharge Diagnosis: Intractable nausea and vomiting Uncontrolled hypertension Referrals: Leanne Alcazar, CARL [Primary Care Provider] - 1 Week Discharge Medications: New amlodipine [Norvasc] 10 mg tablet 10 mg PO DAILY Qty: 90 0RF Continued famotidine 20 mg tablet 20 mg PO BEDTIME Qty: 30 3RF atorvastatin 40 mg tablet 40 mg PO BEDTIME Qty: 90 3RF carvedilol 25 mg tablet 25 mg PO BID Jardiance 10 mg tablet 10 mg PO DAILY escitalopram oxalate 10 mg tablet 10 mg PO DAILY ondansetron HCl 4 mg tablet 8 mg PO Q8H PRN (Reason: nausea/vomiting) insulin glargine [Lantus Solostar U-100 Insulin] 100 unit/mL (3 mL) insulin pen 10 unit subcut BEDTIME losartan 50 mg tablet 50 mg PO DAILY Qty: 30 5RF pantoprazole 40 mg tablet,delayed release (DR/EC) 40 mg PO DAILY@0630 Discharge Orders: Discharge Order (Routine); Ordered 07/05/24 Ordered By: Yuly Shearer Activity on Discharge: As tolerated Stand Alone Forms: Patient Portal Discharge page Print Language: [place] Care Plan Goals: See below Health Concerns: Intractable nausea and vomiting-resolved Uncontrolled hypertension Plan of Treatment: Take Coreg, losartan, Norvasc as prescribed Follow-up with Nephrology on Saturday as scheduled Follow diabetic, low-salt diet Assessment: See discharge summary
--- NOTE | 2024-07-05 13:48 | MHC.CM.PN ---
PT TO DC HOME TODAY WITH NO SERVICES VIA SELF ARRANGED TRANSPORT
== END 2024-07-05 13:48 | disposition home or self-care (01) | DRG 249 ==
LOC: HO.ED 18:37 → HO.EDOVER 23:38 → HO.S3 07-03 07:30
PROVIDERS: Nurse Practitioner Family; Physician Assistant; Physician Assistant Medical; Admitting Provider Student in an Organized Health Care Education/Training Program; Emergency Provider Emergency Medicine; PCP Registered Nurse; Visit Provider Physician Assistant Medical
DX: R11.2 Nausea with vomiting, unspecified (principal); N17.9 Acute kidney failure, unspecified; E11.22 Type 2 diabetes mellitus with diabetic chronic kidney disease; E11.43 Type 2 diabetes mellitus with diabetic autonomic (poly)neuropathy; K31.84 Gastroparesis; I12.9 Hypertensive chronic kidney disease with stage 1 through stage 4 chronic kidney disease, or unspecified chronic kidney disease; F12.90 Cannabis use, unspecified, uncomplicated; N18.31 Chronic kidney disease, stage 3a; Z20.822 Contact with and (suspected) exposure to COVID-19; Z87.891 Personal history of nicotine dependence; Z79.4 Long term (current) use of insulin; Z79.899 Other long term (current) drug therapy
CPT/HCPCS: 0241U; 36415; 71045; 74176; 76705; 78226; 80048; 80053; 81001; 82010; 82248; 82803; 82947; 83605; 83690; 83735; 84478; 84484; 85025; 87040; 93005; 99285; A9537; J0696; J1171; J1200; J1308; J1630; J1644; J1920; J2270; J2405; J2470; J2765; J7120

== ENCOUNTER → 2024-07-02 11:09 | Outpatient (BNV) | payer MEDICAID, SELFPAY | PROVIDERS: Emergency Provider Emergency Medicine; PCP Registered Nurse; Visit Provider Internal Medicine Cardiovascular Disease | DX: R10.13 Epigastric pain (principal) | CPT/HCPCS: 93010 ==

== ENCOUNTER → 2024-07-02 15:49 | Outpatient (BNV) | payer MEDICAID, SELFPAY | PROVIDERS: Emergency Provider Emergency Medicine; Visit Provider Radiology Diagnostic Radiology | DX: R10.13 Epigastric pain (principal); K76.0 Fatty (change of) liver, not elsewhere classified; R50.9 Fever, unspecified | CPT/HCPCS: 71045; 74176; 76705 ==

== ENCOUNTER 2024-07-02 23:33 | Outpatient (BNV) | payer MEDICAID, SELFPAY | END 2024-07-04 17:47 | PROVIDERS: Admitting Provider Student in an Organized Health Care Education/Training Program; Emergency Provider Emergency Medicine; PCP Registered Nurse; Visit Provider Internal Medicine | DX: R94.31 Abnormal electrocardiogram [ECG] [EKG] (principal); R07.9 Chest pain, unspecified | CPT/HCPCS: 93010 ==

== ENCOUNTER 2024-07-02 23:33 | Outpatient (BNV) | payer MEDICAID, SELFPAY | END 2024-07-03 11:25 | PROVIDERS: Admitting Provider Student in an Organized Health Care Education/Training Program; Emergency Provider Emergency Medicine; PCP Registered Nurse; Visit Provider Radiology Diagnostic Radiology | DX: R10.9 Unspecified abdominal pain (principal) | CPT/HCPCS: 78226 ==

== ENCOUNTER → 2024-07-02 23:33 | Outpatient (BNV) | payer MEDICAID, SELFPAY | PROVIDERS: Admitting Provider Student in an Organized Health Care Education/Training Program; Emergency Provider Emergency Medicine; PCP Registered Nurse; Visit Provider Nurse Practitioner Family | DX: R11.2 Nausea with vomiting, unspecified (principal); N17.9 Acute kidney failure, unspecified; E87.20 Acidosis, unspecified | CPT/HCPCS: 99223; 99232; 99239; 99499 ==

== ENCOUNTER → 2024-07-02 23:33 | Outpatient (BNV) | payer MEDICAID, SELFPAY | PROVIDERS: Admitting Provider Student in an Organized Health Care Education/Training Program; Emergency Provider Emergency Medicine; PCP Registered Nurse; Visit Provider Internal Medicine | DX: R07.2 Precordial pain (principal); N17.9 Acute kidney failure, unspecified; N10 Acute pyelonephritis; E87.20 Acidosis, unspecified; R73.9 Hyperglycemia, unspecified; E11.65 Type 2 diabetes mellitus with hyperglycemia; Z79.4 Long term (current) use of insulin; R11.2 Nausea with vomiting, unspecified | CPT/HCPCS: 99222 ==

== ENCOUNTER → 2024-07-02 23:33 | Outpatient (BNV) | payer MEDICAID, SELFPAY | PROVIDERS: Admitting Provider Student in an Organized Health Care Education/Training Program; Emergency Provider Emergency Medicine; PCP Registered Nurse; Visit Provider Nurse Practitioner Family | DX: N17.9 Acute kidney failure, unspecified (principal); E86.0 Dehydration; I12.9 Hypertensive chronic kidney disease with stage 1 through stage 4 chronic kidney disease, or unspecified chronic kidney disease; N18.2 Chronic kidney disease, stage 2 (mild) | CPT/HCPCS: 99222 ==

== ENCOUNTER 2024-07-29 14:27 | Outpatient (REF) | payer MEDICAID, SELFPAY ==
[2024-07-29 15:38] LABS: Hematocrit 31.9 % (42.0-52.0); Hemoglobin 11.4 g/dl (14.0-18.0); Mean Corpuscular HGB Conc 35.7 g/dl (31.0-36.0); Mean Corpuscular Volume 83.9 fL (80.0-98.0); Mean Platelet Volume 10.6 fL (9.4-12.4); Platelet Count 261 X10*3/uL (160-400); White Blood Count 8.2 X10*3/uL (4.8-10.8)
[2024-07-29 15:48] LABS: Estimated Average Glucose 206 mg/dL; Hemoglobin A1c % 8.8 % (<6.0)
[2024-07-29 16:00] LABS: Alanine Aminotransferase 13 U/L (0-40); Albumin Level 3.8 g/dL (3.5-5.0); Alkaline Phosphatase 88 U/L (39-117); Anion Gap 10 (12-20); Aspartate Amino Transferase 17 U/L (5-37); Bilirubin Total 0.8 mg/dL (0.0-1.0); Blood Urea Nitrogen 12 mg/dL (9-16); Calcium 9.1 mg/dL (8.4-10.2); Carbon Dioxide 28 mmol/L (22-29); Chloride 105 mmol/L (96-108); Estimated Glomerular Filt Rate 57; Glucose Random 215 mg/dL (60-115); Lipase 26 U/L (8-78); Potassium 4.3 mmol/L (3.3-5.1); Sodium 139 mmol/L (135-145); Total Protein 6.6 g/dL (6.5-8.0)
[2024-07-30 12:44] LABS: Complement C3 134 mg/dL (82-185)
[2024-07-31 17:48] LABS: Prot Elec - Albumin 3.8 g/dL (3.8-4.8); Prot Elec - Alpha1 0.2 g/dL (0.2-0.3); Prot Elec - Alpha2 0.8 g/dL (0.5-0.9); Prot Elec - Beta 1 0.4 g/dL (0.4-0.6); Prot Elec - Beta 2 0.4 g/dL (0.2-0.5); Prot Elec - Gamma 0.6 g/dL (0.8-1.7); Prot Elec - Total Protein 6.2 g/dL (6.1-8.1)
== END 2024-07-29 14:28 | disposition home or self-care (01) ==
LOC: HO.LAB 14:27
PROVIDERS: Internal Medicine Hypertension Specialist; PCP Registered Nurse; Visit Provider Nurse Practitioner Family
DX: K21.9 Gastro-esophageal reflux disease without esophagitis (principal); Z83.3 Family history of diabetes mellitus; I10 Essential (primary) hypertension; N18.9 Chronic kidney disease, unspecified; R10.13 Epigastric pain; R11.2 Nausea with vomiting, unspecified
CPT/HCPCS: 36415; 80053; 83036; 83690; 84165; 85027; 86160; 99212

== ENCOUNTER 2024-07-29 14:27 | Outpatient (AMB) | payer MEDICAID, SELFPAY ==
--- NOTE | 2024-07-29 14:30 | A.OFFVIS_ITS ---
Vital Signs 07/29/24 14:42 Height 5 ft 7 in Weight 187 lb 10 oz BMI 29.4 BP 176/92 H Blood Pressure Location Rt brachial Position Sitting Pulse 84 Pulse Source Pulse Oximeter Pulse Oximetry (%) 99 Oxygen Delivery Method Room Air Intake Visit Reasons: 30m. Gastritis GERD. S/P Admission Intake Note: ESTABLISHED PATIENT for chronic gastritis mgmt. Recent admission for Acidosis. Chief Complaint; C.O. persistent N+V, GERD despite current PPI tx, and HTN episodes related to GI sx per pt. Pt confirms he is still taking all of his medications as instructed. Pedigree Tracer Required: No Accompanied by: Self / Same As Patient Allergies No Known Allergies [No Known Allergies*] Allergy (Verified 07/29/24 14:35) HPI HPI 30m. Gastritis GERD. S/P Admission: Details: LAST VISIT GERD (gastroesophageal reflux disease) Postprandial epigastric pain Nausea & vomiting Plan Continue pantoprazole. Avoid dietary triggers and late night snacking. Staying upright for minimum 3 hours after meals discussed with patient. Patient will take famotidine at bedtime. Will check for H pylori, lipase, A1c, thyroid study, transglutaminase, vitamin-D, B12 and folate. Patient will be sent for upper GI series. He is not having to follow with endocrinology. Message sent to 1 of the providers and referral was made. Patient will follow-up in the office in 2 months. He will be sent for upper endoscopy, however he is seen cardiology now and is going for stress test as well as echocardiogram. Long discussion with patient about avoiding dietary triggers which will probably be the most importan t. Continue avoiding marijuana. Eat smaller meals and more often. Patient is agreeable to current plan of care and verbalizes understanding of instructions. He was given the opportunity to ask questions and all questions answered. ? Thank you for allowing me to participate in his care Orders Orders H pylori Ag Stool Today K21.9 Lipase Today R10.9 Hemoglobin A1c Today Z83.3 FL upper GI w Ba Swallow Today K21.9 TSH reflex Free T4 Today K59.00 Transglutaminase IgA Today R10.9 Vitamin B12 and Folate Today R19.7 Vitamin D 25-OH (D2 and D3) Today E55.9 Referrals Endocrinology Referral E11.9 Medications New famotidine (Pepcid) 20 mg PO BEDTIME 30 tabs 3RF K21.9 GI CONSULTATION FROM 07/03/2024 Plan CC is retrosternal burning pain with N/V. No odynophagia ro dysphagia reported. KARUNA improving. DDx includes cyclical vomiting vs cannabis hyperemesis vs delayed emptying 2/2 hyperglycemia. Suspect N/V likely has led to esophagitis that is causing pyrosis and heartburn. Degree of pain is difficult to assess and fluctuates as outlined above in exam. Plan: - minimize dilaudid as that can worsen i) gastric emptying and ii) N/V - OK to utilize po tylenol staggered with oxycodone - cont IV PPI bid - add mylanta or carafate for symptomatic relief - await hida results - consider trial of erythromycin 250 cc IV TID x 2 days - pls confirm normal QTc before starting this - Diet as tolerated - If HIDA normal and pt continues with N/V despite above interventions may need EGD TODAY'S VISIT Patient is here today for follow-up and for visit previously admitted for KARUNA. Patient had abdominal pain, nausea and vomiting admitted in the beginning of this month. Patient still reports that he has epigastric pain occasionally. Currently he is taking pantoprazole in the morning and famotidine at bedtime. He still has epigastric pain and occasional nausea. Patient has been feeling weak as he does not have appetite to eat food. Patient last few lb in the past couple months. Patient reports that he can not keep anything down. HIDA scan was normal. Patient had CT scan and ultrasound done in the ED. No acute processes found to explain patient's pain. Mild sludge was found in the gallbladder without cholecystitis. Patient reports occasional dyspepsia without dysphagia or odynophagia. Reports abdominal bloating. Moving his bowels without any issues. Denies melena, hematochezia. [facility] Medical History Chronic kidney disease Cannabis hyperemesis syndrome concurrent with and due to cannabis dependence Cannabis use disorder Hypertension Anxiety Chest pain ADHD Generalized anxiety disorder Type 2 diabetes mellitus Hypertension Surgical History [place] teeth extracted History of appendectomy History of eye surgery (~06/2022) Family History Father HTN (hypertension) Mother Arthritis Sister Lupus (systemic lupus erythematosus) Social History Household Members: Family Housing: Apartment Do you presently have visiting nurse or other home services: No Alcohol intake: former Patient Tobacco Use Status: Never used Tobacco e-Cigarette/Vaping Use: Never Used Second Hand Smoke Exposure: No (N/A) Substance Use Type: Marijuana Advance Directives Date on File: 11/01/23 service: No Review of Systems Const Denies weight gain and Denies weight loss ENT Reports no additional complaints, Denies dysphagia and Denies odynophagia Card Reports no additional complaints Resp Reports no additional complaints GI Reports abdominal pain (Epigastric), Denies belching, Denies melena, Reports bloating, Denies change in bowel habits, Denies dysphagia, Denies excessive flatus, Reports dyspepsia, Reports heartburn, Denies diarrhea, Reports loose stools (Occasionally), Denies nausea, Denies odynophagia and Denies vomiting Reports no additional complaints Musc Reports no additional complaints Neuro Reports no additional complaints Psych Reports no additional complaints Endo Reports no additional complaints Physical Exam Vital Signs: Last Vital Signs Pulse 84 07/29/24 14:42 BP 176/92 H 07/29/24 14:42 Pulse Ox 99 07/29/24 14:42 Oxygen Delivery Method Room Air 07/29/24 14:42 BMI result Body Mass Index 29.4 Const General: healthy appearing and no acute distress Nutritional Appearance: obese Orientation/consciousness: patient oriented x3 Resp Effort & Inspection: normal respiratory effort, able to speak in complete sentences, no tracheal deviation and symmetric chest movement Auscultation: clear to auscultation bilaterally Cardio Rate: regular rate GI Inspection: Yes normal to inspection and No distended Palpation (GI): Soft to palpation, not firm, nontender and No hepatosplenomegaly present Auscultation: normal bowel sounds General: Yes no CVA tenderness Back/Spine/Pelvis Back: no CVA tenderness Skin General skin exam: elasticity normal, turgor normal and dry skin Neuro General: patient oriented x3 Psych Appearance: grossly normal Mental Status: mental status grossly normal Results Reviewed Results Reviewed: HIDA SCAN 07/03/2024 FINDINGS: There is normal hepatic uptake with no focal defects seen. There is prompt visualization of gallbladder by 22 minutes. CBD is visualized by 26 minutes. Small bowel is visualized by 20 minutes. NM/NM hepatobiliary wo pharm IMPRESSION: Normal hepatic uptake. Patent cystic duct. Patent CBD. Assessment & Plan Assessment & Plan (1) GERD (gastroesophageal reflux disease): Code(s): K21.9 - Gastro-esophageal reflux disease without esophagitis Qualifiers: Esophagitis presence: esophagitis presence not specified Qualified Code(s): K21.9 - Gastro-esophageal reflux disease without esophagitis (2) Postprandial epigastric pain: Code(s): R10.13 - Epigastric pain (3) Nausea & vomiting: Code(s): R11.2 - Nausea with vomiting, unspecified Qualifiers: Vomiting type: unspecified Qualified Code(s): R11.2 - Nausea with vomiting, unspecified Plan Patient will start taking sucralfate twice a day and hold famotidine. Continue taking PPI in the morning. Will repeat A1c, CBC, CMP and lipase. Patient will be scheduled to go for upper endoscopy. Message sent to surgical appliances salesperson stool bulk procedure her patient. I will see him after the procedure. Patient is going for stress test. History of cardiomyopathy. Currently on multiple hypertensive medications and his blood pressure still being high. Patient is agreeable to current plan of care and verbalizes understanding of instructions. He was given the opportunity to ask questions and all questions answered. Thank you for allowing me to participate in his care Orders: Orders Hemoglobin A1c Today Z83.3 - Family history of diabetes mellitus Complete Blood Count no Diff Today K21.9 - Gastro-esophageal reflux disease without esophagitis Comprehensive Met. Panel Today K21.9 - Gastro-esophageal reflux disease without esophagitis Lipase Today R10.9 - Unspecified abdominal pain Medications: New sucralfate 1 g PO BID 60 tabs 3RF Coding Level of Care Code Est Pt Level 4 (65438) Complex EM visit Add On G2211 Diagnoses Gastroesophageal reflux disease, unspecified whether esophagitis present K21.9 Esophagitis presence: esophagitis presence not specified Postprandial epigastric pain R10.13 Nausea and vomiting, unspecified vomiting type R11.2 Vomiting type: unspecified Time Spent (min) 40 Comment 25 minutes spent with patient and additional 15 minutes spent reviewing his records
[2024-07-29 14:42] VITALS: BP 176/92; PULSE 84; O2SAT 99; BMI 29.4
--- OUTSIDE RECORDS SUMMARY | 2024-07-29 15:20 | XMS_ITS | Encounter Summary ---
Author Organization [facility] Address [address] [place] [address] Phone Care Team Providers Care Bowling Alley Mechanic Name Role Phone Tete Sutherland MD Primary Care Provider Encounter Details Date Type Department Care Team (Late st Contact Info) Description 10/18/2016 Conversion Encounter [facility] [place] [address] [place] [address] Social History Tobacco Use Types Packs/Day Years [...] on filedocumented in this encounter Care Teams Bowling Alley Mechanic Relationship Specialty Start Date End Date Tete Sutherland MD [address] [place] [address] PCP - General 10/12/16 08/27/22 documented as of this encounter
== END 2024-07-29 14:59 | disposition home or self-care (01) ==
LOC: HO.HGI 14:27
PROVIDERS: PCP Registered Nurse; Visit Provider Nurse Practitioner Family
DX: K21.9 Gastro-esophageal reflux disease without esophagitis (principal); R10.13 Epigastric pain; R11.2 Nausea with vomiting, unspecified
CPT/HCPCS: 99214

== ENCOUNTER 2024-08-13 15:35 | Outpatient (AMB) | payer MEDICAID, SELFPAY ==
[2024-08-13 15:46] VITALS: BP 170/100; PULSE 70; O2SAT 98; BMI 32.3
--- NOTE | 2024-08-13 15:46 | HO.NEPHOV_ITS ---
Vital Signs 08/13/24 15:46 Height 5 ft 7 in Weight 206 lb BMI 32.3 BP 170/100 H Blood Pressure Location Rt brachial Position Sitting Pulse 70 Pulse Source Pulse Oximeter Pulse Oximetry (%) 98 Oxygen Delivery Method Room Air Intake Visit Reasons: RSCng missed appt Automobile Rental Representative Required: No Accompanied by: Self / Same As Patient Allergies No Known Allergies [No Known Allergies*] Allergy (Verified 08/13/24 15:48) Medication List - Last Reconciled 08/13/24 by Royce Perry MD amlodipine (Norvasc) 10 mg PO DAILY atorvastatin 40 mg PO BEDTIME carvedilol 25 mg PO BID empagliflozin (Jardiance) 10 mg PO DAILY escitalopram oxalate 10 mg PO DAILY famotidine 20 mg PO BEDTIME flash glucose sensor (FreeStyle Ave 2 Sensor kit) As directed insulin glargine (Lantus Solostar U-100 Insulin) 10 units subcut BEDTIME losartan 50 mg PO DAILY ondansetron HCl 8 mg PO Q8H PRN pantoprazole 40 mg PO DAILY@0630 pen needle, diabetic As directed sucralfate 1 g PO BID HPI Comments Details: 28 y/o male here for new patient visit referred by PCP for KARUNA medical history of primary HTN, DMII (diagnosed as a teenager, uncontrolled until last year or two per pt), obesity, anxiety. former daily cigar smoker, quit 1 year ago. Quit drinking alcohol 1 year ago (~1-2 beers daily prior to that). Daily marijuana smoker. 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 He is not sure about diabetic retinopathy but does see an eye doctor. Creatinine: 10/2022 0.85 08/14/23 1.40 10/29/23 1.60 10/30/23 1.37 10/31/[address] abd/pelvis- unremarkable renal findings. *of note, pt also had protein and blood in urine on UA from May 2022 pt was hospitalized on 10/31/23 at [facility] with uncontrolled HTN and chest pain, ACS eval was negative. KARUNA, olmesartan was held. currently prescribed amlodipine 10mg daily and carvedilol 6.25mg BID high blood pressure had been improving per pt, was in 180s for some time- notes panic attacks can often worsen his blood pressures lost 100lbs over about 5 years, gained a lot of it back in last year or so. family history: sister passed from lupus 2 years ago. Other siblings are healthy he thinks. father has diabetes and high blood pressure. mother has prediabetes. pt's son kowasaki disease when he was born NSAIDs are rare but he does take them on occasion take for headaches. does note constant pressure on his chest, reports this has improved since hospital visit but mild version is persisting no dyspnea no abdominal pain no pain with urination swelling in his legs- compression socks are helpful - pt reports since starting amlodipine 03/17/2024. Tristen claims he is anxious. His blood pressure has always stayed elevated. He states that the only time it comes down is when he smokes marijuana. 03/31/2024. He forgot to take his medications today. Underwent 24 hour ambulatory blood pressure more 08/13/2024. From renal standpoint is doing very well. No specific complaints. No nausea or vomiting. Seems compliant with his medications [facility] Medical History Chronic kidney disease Cannabis hyperemesis syndrome concurrent with and due to cannabis dependence Cannabis use disorder Hypertension Anxiety Chest pain ADHD Generalized anxiety disorder Type 2 diabetes mellitus Hypertension Surgical History [place] teeth extracted History of appendectomy History of eye surgery (~06/2022) Family History Father HTN (hypertension) Mother Arthritis Sister Lupus (systemic lupus erythematosus) Social History Household Members: Family Housing: Apartment Do you presently have visiting nurse or other home services: No Alcohol intake: former Patient Tobacco Use Status: Never used Tobacco e-Cigarette/Vaping Use: Never Used Second Hand Smoke Exposure: No (N/A) Substance Use Type: Marijuana Advance Directives Date on File: 11/01/23 service: No Physical Exam Vital Signs: Last Vital Signs Pulse 70 08/13/24 15:46 BP 170/100 H 08/13/24 15:46 Pulse Ox 98 08/13/24 15:46 Oxygen Delivery Method Room Air 08/13/24 15:46 BMI result Body Mass Index 32.3 Comfortable Neck supple no JVD. Lungs entry equal no rales. Heart S1-S2 heard no gallop or rub. Abdomen soft nontender. Neuro alert awake oriented. No asterixis. Extremities no edema. Results Reviewed Nephrology Results: Hgb 11.4 g/dl (14.0-18.0) L 07/29/24 WBC 8.2 X10*3/uL (4.8-10.8) 07/29/24 Plt Count 261 X10*3/uL (160-400) 07/29/24 Sodium 139 mmol/L (135-145) 07/29/24 Potassium 4.3 mmol/L (3.3-5.1) 07/29/24 Chloride 105 mmol/L (96-108) 07/29/24 Carbon Dioxide 28 mmol/L (22-29) 07/29/24 BUN 12 mg/dL (9-16) 07/29/24 Creatinine 1.45 mg/dL (0.5-1.4) H 07/29/24 Calcium 9.1 mg/dL (8.4-10.2) 07/29/24 Urine Protein 300 (3+) mg/dL (Neg-Trace) H 07/02/24 Assessment & Plan Assessment & Plan (1) Chronic kidney disease, stage 2 (mild): Code(s): N18.2 - Chronic kidney disease, stage 2 (mild) Category: Medical (2) Uncontrolled hypertension: Code(s): I10 - Essential (primary) hypertension Category: Medical (3) KARUNA (acute kidney injury): Code(s): N17.9 - Acute kidney failure, unspecified Category: Medical (4) Chronic kidney disease: Code(s): N18.9 - Chronic kidney disease, unspecified Category: Medical Qualifiers: Chronic kidney disease stage: stage 2 (GFR 60-89) Qualified Code(s): N18.2 - Chronic kidney disease, stage 2 (mild) Plan Pt with CKD stage 3a in setting of longstanding DMII, with recent increase in creatinine may have been related to olmesartan, though also question glomerulonephritis given hx of blood and protein in urine Renal ultrasonogram was unremarkable no evidence of obstruction. Once again he did not undergo the serological workup. I reordered again today.- check SPEP, C3/C4 to rule out other non-diabetic etiologies of CKD Anxiety is clearly playing a role in the resistant hypertension. avoid NSAIDs work on healthy diet and weight loss as well as regular exercise Low salt diet . 24 hour ambulatory blood pressure monitoring revealed ABP M stage I hypertension without nocturnal dipping. No white coat effect. There were several readings that were in the normal range. His blood pressure is suboptimal today because he did not did not take amlodipine and losartan Discussed importance of compliance. 08/13/2024. Renal function stable at baseline. He has stage III CKD. Baseline creatinine is around 1.45 mg/dL with a EGFR of 57 mL/minutes. Blood pressure is suboptimal. Given nephrotic range proteinuria I will maximize LATISHA inhibition. Increased losartan from 50 mg up to 100 mg a day. Encouraged him to stay on low-sodium diet. Goal is to maintain blood pressure less than 130/80 continue to avoid nephrotoxic agents including NSAIDs. Recheck renal panel prior to next visit Orders: Orders Basic Metabolic Panel 2 Months N18.2 - Chronic kidney disease, stage 2 (mild) Medications: Changed From losartan 50 mg PO DAILY 30 tabs 5RF To losartan 100 mg PO DAILY 90 tabs 5RF Coding Level of Care Code Est Pt Level 4 (05556) Diagnoses Chronic kidney disease, stage 2 (mild) N18.2 Uncontrolled hypertension I10 KARUNA (acute kidney injury) N17.9 Stage 2 chronic kidney disease N18.2 Chronic kidney disease stage: stage 2 (GFR 60-89)
--- OUTSIDE RECORDS SUMMARY | 2024-08-13 18:02 | XMS_ITS | Encounter Summary ---
Author Organization [facility] Address [address] [place] [address] Phone Care Team Providers Care Parts Inspector Name Role Phone Tete Sutherland MD Primary Care Provider Encounter Details Date Type Department Care Team (Late st Contact Info) Description 10/18/2016 Conversion Encounter [facility] [place] [address] [place] [address] Social History Tobacco Use Types Packs/Day Years [...] on filedocumented in this encounter Care Teams Parts Inspector Relationship Specialty Start Date End Date Tete Sutherland MD [address] [place] [address] PCP - General 10/12/16 08/27/22 documented as of this encounter
== END 2024-08-13 16:02 | disposition home or self-care (01) ==
LOC: HO.HKA 15:36
PROVIDERS: PCP Registered Nurse; Visit Provider Internal Medicine Hypertension Specialist
DX: I12.9 Hypertensive chronic kidney disease with stage 1 through stage 4 chronic kidney disease, or unspecified chronic kidney disease (principal); N18.2 Chronic kidney disease, stage 2 (mild); N17.9 Acute kidney failure, unspecified
CPT/HCPCS: 99214

== ENCOUNTER → 2024-08-13 15:35 | Outpatient (BNVA) | payer MEDICAID, SELFPAY | PROVIDERS: PCP Registered Nurse; Visit Provider Internal Medicine Hypertension Specialist | DX: N18.2 Chronic kidney disease, stage 2 (mild) (principal); I10 Essential (primary) hypertension; N17.9 Acute kidney failure, unspecified | CPT/HCPCS: 99212 ==

== ENCOUNTER 2024-09-23 03:38 | Inpatient (IN) | payer MEDICAID, SELFPAY ==
[2024-09-23] VITALS (12 sets, daily range): BP systolic 145–199; BP diastolic 67–97; PULSE 84–138; RESP 14–25; TEMP 36.8–37.4; O2SAT 98–100; BMI 29.3
--- NOTE | 2024-09-23 | ECG_ITS ---
Test Reason : chest pain Blood Pressure : */* mmHG Vent. Rate : 0 BPM Atrial Rate : 0 BPM P-R Int : * ms QRS Dur : 0 ms QT Int : 0 ms P-R-T Axes : 0 0 0 degrees QTcB Int : 0 ms No QRS complexes found, no ECG analysis possible When compared with ECG of 04-Jul-2024 17:45, MANUAL COMPARISON REQUIRED CURRENT ECG IS INCOMPATIBLE Referred By: Generic ED Physician Electronically Signed By:
[2024-09-23 04:05] LABS: Hematocrit 30.8 % (42.0-52.0); Hemoglobin 11.3 g/dl (14.0-18.0); Imm Gran Abs Auto 0.02 X10*3/uL (0.00-0.03); Imm Gran Pct Auto 0.2 % (0.0-0.4); Lymphocytes Absolute Auto 1.0 X10*3/uL (1.2-4.9); MANUAL DIFF FLAG NO; Mean Corpuscular HGB Conc 36.7 g/dl (31.0-36.0); Mean Corpuscular Hemoglobin 30.6 pg (27.0-33.0); Mean Corpuscular Volume 83.5 fL (80.0-98.0); NRBC Abs Auto 0.000 X10*3/uL (0.0-0.012); NRBC Pct Auto 0.0 /100WBC (0.0-0.2); Platelet Count 221 X10*3/uL (160-400); Red Blood Count 3.69 X10*6/uL (4.60-5.80); White Blood Count 8.2 X10*3/uL (4.8-10.8)
--- NOTE | 2024-09-23 04:21 | ECG_ITS ---
Test Reason : chest pain Blood Pressure : */* mmHG Vent. Rate : 81 BPM Atrial Rate : 81 BPM P-R Int : 132 ms QRS Dur : 98 ms QT Int : 380 ms P-R-T Axes : 49 34 53 degrees QTcB Int : 441 ms Normal sinus rhythm Normal ECG When compared to the previous EKG of No significant changes seen Referred By: Generic ED Physician Electronically Signed By: Marcus Valdes
[2024-09-23 04:31] LABS: Troponin-I High Sensitivity 4.6 ng/L (<3.5-35.0)
[2024-09-23 04:57] LABS: Anion Gap 15 (12-20)
[2024-09-23 05:02] LABS: Alanine Aminotransferase 11 U/L (0-40); Albumin Level 3.7 g/dL (3.5-5.0); Alkaline Phosphatase 72 U/L (39-117); Aspartate Amino Transferase 20 U/L (5-37); Blood Urea Nitrogen 36 mg/dL (9-16); Calcium 8.7 mg/dL (8.4-10.2); Carbon Dioxide 21 mmol/L (22-29); Chloride 105 mmol/L (96-108); Creatinine Clr Calc Pharmacy 61.8; Estimated Glomerular Filt Rate 44; Lipase 17 U/L (8-78); Potassium 3.5 mmol/L (3.3-5.1); Sodium 137 mmol/L (135-145); Total Protein 6.3 g/dL (6.5-8.0)
--- NOTE | 2024-09-23 06:43 | PC.NURSE ---
Per MD, RN gave pt po hydration to see if pt could tolerate- RN stayed at bedsides- pt able to swallow the water but was gagging after.
--- NOTE | 2024-09-23 06:53 | ED.NAVMDI ---
HPI - Nausea/Vomiting/Diarrhea General Chief complaint: Nausea/Vomiting/Diarrhea Stated complaint: n/v x 2days, HTN & Tachy, Weakness Time Seen by Provider: 09/23/24 05:43 Source: patient and EMS Mode of arrival: EMS Limitations: no limitations History of Present Illness ED Provider: Dr. Aziza Flaherty HPI Narrative: Patient comes to the emergency room complaining of vomiting. Patient denies diarrhea, denies fever chills. Complaining of mild abdominal discomfort due to vomiting so much. Patient admits that he has been using marijuana and has history of hyperemesis. Related Data Home Medications ?Medication ?Instructions ?Recorded ?Confirmed empagliflozin 10 mg tablet 10 mg PO DAILY 10/29/23 08/13/24 (Jardiance) carvedilol 25 mg tablet 25 mg PO BID 02/06/24 08/13/24 escitalopram oxalate 10 mg tablet 10 mg PO DAILY 02/25/24 08/13/24 pantoprazole 40 mg tablet,delayed 40 mg PO DAILY@0630 03/16/24 08/13/24 release insulin glargine 100 unit/mL (3 10 unit subcut BEDTIME 07/03/24 08/13/24 mL) subcutaneous pen (Lantus Solostar U-100 Insulin) ondansetron HCl 4 mg tablet 8 mg PO Q8H PRN nausea/vomiting 07/03/24 08/13/24 flash glucose sensor (FreeStyle #1 ea 07/29/24 08/13/24 Ave 2 Sensor kit) pen needle, diabetic 31 gauge x #1,200 ea 07/29/24 08/13/24/ Previous Rx's ?Medication ?Instructions ?Recorded famotidine 20 mg tablet 20 mg PO BEDTIME #30 tabs 06/08/24 atorvastatin 40 mg tablet 40 mg PO BEDTIME #90 tabs 06/09/24 amlodipine 10 mg tablet (Norvasc) 10 mg PO DAILY #90 tabs 07/05/24 sucralfate 1 gram tablet 1 g PO BID #60 tabs 07/29/24 losartan 100 mg tablet 100 mg PO DAILY #90 tabs 08/13/24 Allergies Allergy/AdvReac Type Severity Reaction Status Date / Time No Known Allergies (No Known Allergy Verified 09/23/24 03:48 Allergies*) Review of Systems Review of Systems: Constitutional : No Weight loss, No Fever, No Chills, No Night Sweats, No Fatigue, No Malaise ENT/Mouth : No Hearing loss, No Ear Pain, No Nasal Congestion, No Sinus Pain, No Hoarseness, No sore throat, No Rhinorrhea, No Swallowing Difficulty Eyes: No Eye Pain, No Swelling, No Redness, No Foreign Body, No Discharge, No Vision Changes Cardiovascular : No Chest Pain, No SOB, No Dyspnea on Exertion, No Orthopnea, No Edema, No Palpitations Respiratory : No Cough, No Sputum, No Wheezing, No Smoke Exposure, No Dyspnea Gastrointestinal : Complaining of nausea and vomiting, No Diarrhea, No Constipation, No abdominal Pain, No Hematochezia, No Melena Genitourinary : no irregular bleeding, No Dysuria, No Urinary Frequency, No Hematuria, No Urinary Incontinence, No Urgency, No Flank Pain, No Urinary Flow Changes, No Hesitancy Musculoskeletal : No joint pain, No Myalgias, No Joint Swelling Skin : No Skin Lesions, No rash Neuro : No Weakness, No Numbness, No Paresthesias, No Loss of Consciousness, No Dizziness, No Headache Psych : No Anxiety/Panic, No Depression, No SI/HI/AH/VH, admits to THC abuse Heme/Lymph: No Bruising, No Bleeding,No Lymphadenopathy Endocrine : No Polyuria, No Polydipsia, No Temperature Intolerance PMFSH Past Medical History Medical History Chronic kidney disease Cannabis hyperemesis syndrome concurrent with and due to cannabis dependence Cannabis use disorder Hypertension Anxiety Chest pain ADHD Generalized anxiety disorder Type 2 diabetes mellitus Hypertension Surgical History [place] teeth extracted History of appendectomy History of eye surgery (~06/2022) Family History Family History Father HTN (hypertension) Mother Arthritis Sister Lupus (systemic lupus erythematosus) Social History Social History Household Members: Family Housing: Apartment Do you presently have visiting nurse or other home services: No Alcohol intake: former Patient Tobacco Use Status: Never used Tobacco Smoked in Last 30 Days: No e-Cigarette/Vaping Use: Never Used Second Hand Smoke Exposure: No (N/A) Substance Use Type: Marijuana Advance Directives: Yes Advance Directives on File: Yes Advance Directives Date on File: 11/01/23 service: No Physical Exam Exam: Exam: Appearance: Alert. Oriented X3. Very nauseous, actively vomiting Eyes: Pupils equal, round and reactive to light. ENT: Pharynx normal. Neck: Normal inspection. Neck supple. No lymph nodes noted. No crepitus CVS: Normal heart rate and rhythm. Pulses normal. Normal S1 and S2 Respiratory: No respiratory distress. Breath sounds normal. No Wheezing. No rales Abdomen: Soft and nontender. No rigidity. No distention. Skin: Skin warm and dry. Normal skin color. Normal skin turgor. Extremities: No lower extremity edema. No Lacerations. No Rash Neuro: Oriented X 3. No motor deficit. No sensory deficit. Moving all extremities. No slurred speech. CN 2 through 12 grossly intact Psych: calm, cooperative, normal affect Vital Signs: Vital Signs: Last Vital Signs Temp 98.3 F 09/23/24 05:51 Pulse 101 H 09/23/24 05:51 Resp 16 09/23/24 05:51 BP 175/97 H 09/23/24 05:51 Pulse Ox 100 09/23/24 05:51 O2 Del Method Room Air 09/23/24 05:51 BMI result Body Mass Index 29.3 Course Course Course Narrative: Patient complaining of 2 days of nausea vomiting. Admits to using THC. Denies fever chills, denies diarrhea, denies UTI symptoms. Patient receiving IV fluids, Zofran. Medications Administered Generic Name Dose Route Start Last Admin Trade Name Freq PRN Reason Stop Dose Admin Sodium Chloride 1,000 mls @ 999 mls/hr 09/23/24 06:56 09/23/24 07:08 Ns IVCONT 09/23/24 07:56 999 mls/hr .Q1H1M ONE Administration Discontinued Medications Generic Name Dose Route Start Last Admin Trade Name Freq PRN Reason Stop Dose Admin Diphenhydramine HCl 50 mg 09/23/24 06:43 09/23/24 06:49 Diphenhydramine Hcl 50 Mg/Ml Vial IVPUSH 09/23/24 06:44 50 mg ONCE ONE Administration Famotidine 20 mg 09/23/24 06:43 09/23/24 06:49 Famotidine/Pf 20 Mg/2 Ml Vial IVPUSH 09/23/24 06:44 20 mg ONCE ONE Administration Sodium Chloride 1,000 mls @ 999 mls/hr 09/23/24 05:45 09/23/24 07:08 Ns IV 09/23/24 06:45 Infused .Q1H1M PRIYANKA Infusion Ondansetron HCl 4 mg 09/23/24 05:39 09/23/24 05:45 Ondansetron Hcl 4 Mg/2 Ml Vial IVPUSH 09/23/24 05:40 4 mg ONCE ONE Administration Prochlorperazine Edisylate 10 mg 09/23/24 06:43 09/23/24 06:49 Prochlorperazine Edisylate 10 Mg/2 Ml Vial IVPUSH 09/23/24 06:44 10 mg ONCE ONE Administration Medical Decision Making Medical Decision Making [facility] Narrative: My interpretation of labs: Hematology at baseline, white blood cell count 8.2. Chemistry shows a creatinine of 1.8 which is above patient's baseline. Glucose 230, anion gap closed at 15. LFTs at baseline Patient was p.o. challenged, patient started vomiting again. Patient receiving more IV fluids, diphenhydramine, famotidine, Compazine I discussed the patient with Dr. Pritchard, patient being admitted Differential Diagnosis Differential Diagnoses: The differential diagnosis associated with the presentation includes (Gastritis, gastroenteritis, hyperemesis, DKA) Admission/Observation Consideration of admission/observation: Escalation of care including admission/observation considered Consult Healthcare Provider Management of the patient was discussed with: Hospitalist Lab Data [facility] Lab Attestation statement: I reviewed the patient's lab results. 09/23/24 03:59 09/23/24 04:38 Labs: Lab Results 09/23/24 09/23/24 Range/Units 03:59 04:38 WBC 8.2 (4.8-10.8) X10*3/uL RBC 3.69 L (4.60-5.80) X10*6/uL Hgb 11.3 L (14.0-18.0) g/dl Hct 30.8 L (42.0-52.0) % MCV 83.5 (80.0-98.0) fL MCH 30.6 (27.0-33.0) pg MCHC 36.7 H (31.0-36.0) g/dl RDW 12.4 (11.0-16.0) % Plt Count 221 (160-400) X10*3/uL MPV 9.5 (9.4-12.4) fL Immature Gran % (Auto) 0.2 (0.0-0.4) % Neut % (Auto) 80.2 H (45-73) % Lymph % (Auto) 11.6 L (20-40) % [place] % (Auto) 7.8 (2-11) % Eos % (Auto) 0.0 (0-4) % Baso % (Auto) 0.2 (0-2) % Lymph # (Auto) 1.0 L (1.2-4.9) X10*3/uL [place] # (Auto) 0.6 (0.1-1.2) X10*3/uL Eos # (Auto) 0.0 (0.0-0.4) X10*3/uL Baso # (Auto) 0.0 (0.0-0.2) X10*3/uL Abs Immat Gran (auto) 0.02 (0.00-0.03) X10*3/uL Absolute Neuts (auto) 6.6 (2.0-8.3) x10*3/uL Absolute Nucleated RBC 0.000 (0.0-0.012) X10*3/uL Nucleated RBC % (auto) 0.0 (0.0-0.2) /100WBC Sodium 137 (135-145) mmol/L Potassium 3.5 (3.3-5.1) mmol/L Chloride 105 (96-108) mmol/L Carbon Dioxide 21 L (22-29) mmol/L Anion Gap 15 (12-20) BUN 36 H (9-16) mg/dL Creatinine 1.80 H (0.5-1.4) mg/dL Estim Creat Clear Calc 61.8 Estimated GFR 44 Random Glucose 230 H (60-115) mg/dL Calcium 8.7 (8.4-10.2) mg/dL Total Bilirubin 1.1 H (0.0-1.0) mg/dL AST 20 (5-37) U/L ALT 11 (0-40) U/L Alkaline Phosphatase 72 (39-117) U/L Troponin I High Sens 4.6 D (<3.5-35.0) ng/L Total Protein 6.3 L (6.5-8.0) g/dL Albumin 3.7 (3.5-5.0) g/dL Lipase 17 (8-78) U/L Critical Care Time Critical Care Time Critical Care Time: Yes Total Critical Care Time: 60 Attestation: I have personally provided critical care time. Time includes review of lab data, radiology results, discussion with consultants, and monitoring for potential decompensation. Intervention performed as documented. Discharge Plan Discharge Clinical Impression: Acute kidney injury superimposed on CKD, Cyclical vomiting Patient Disposition: Admitted As Inpatient Print Language: Slovenian
--- NOTE | 2024-09-23 07:16 | PC.NURSE ---
assumed care of patient at 0700, patient is awake and alert when RN walks in room. second IV NS bolus running at this time. patient appears comfortable at this time, resp even and unlabored.
[2024-09-23] MEDS: Lactated Ringers 1,000 ML 125 ML IVCONT ×2 (08:49→16:20)
--- NOTE | 2024-09-23 09:08 | PM.IMHP ---
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 Patient reports associated epigastric sharp/stabbing pain. He denies any hematemesis. He denies any diarrhea. Patient reports that due to ongoing symptoms and an inability to tolerate even liquids, he presented to the emergency room. Patient's workup in the ED revealed signs of dehydration and acute kidney injury with a BUN and creatinine of 36/1.8. Glucose 230. T bili 1.1. Bicarb 21. CBC appears to be at baseline. In the emergency room the patient was treated with multiple liters of IV fluids and IV antiemetics. He was given IV H2 blockers. Subsequent to this, the patient was given a p.o. challenge which he failed with resultant vomiting. Hence, the patient will be admitted for further care. Review of Systems Review of Systems: Negative except HPI/interval history. [facility] Medical History Chronic kidney disease Cannabis hyperemesis syndrome concurrent with and due to cannabis dependence Cannabis use disorder Hypertension Anxiety Chest pain ADHD Generalized anxiety disorder Type 2 diabetes mellitus Hypertension Family History Father HTN (hypertension) Mother Arthritis Sister Lupus (systemic lupus erythematosus) Surgical History [place] teeth extracted History of appendectomy History of eye surgery (~06/2022) Social History Household Members: Family Housing: Apartment Do you presently have visiting nurse or other home services: No Alcohol intake: former Patient Tobacco Use Status: Never used Tobacco Smoked in Last 30 Days: No e-Cigarette/Vaping Use: Never Used Second Hand Smoke Exposure: No (N/A) Substance Use Type: Marijuana Advance Directives: Yes Advance Directives on File: Yes Advance Directives Date on File: 11/01/23 service: No Meds Allergies Allergy/AdvReac Type Severity Reaction Status Date / Time No Known Allergies (No Known Allergy Verified 09/23/24 03:48 Allergies*) Active Medications: Current Medications Acetaminophen (Acetaminophen 325 Mg Tablet) 650 mg PO Q6H PRN PRN Reason: Pain, Mild 1-3,fever,headache Calcium Carbonate (Calcium Carbonate 750 Mg Tab.Chew) 750 mg PO Q4H PRN PRN Reason: Heartburn Famotidine (Famotidine/Pf 20 Mg/2 Ml Vial) 20 mg IVPUSH Q12H [facility] Lactated Ringer's (Lr) 1,000 mls @ 125 mls/hr IVCONT .Q8H [facility] Last Admin: 09/23/24 08:49 Dose: 125 mls/hr Magnesium Hydroxide (Milk Of Magnesia 30 Ml Oral.Susp) 30 ml PO DAILY PRN PRN Reason: Constipation Melatonin (Melatonin 3 Mg Tablet) 6 mg PO BEDTIME PRN PRN Reason: Insomnia Ondansetron HCl (Ondansetron Hcl 4 Mg/2 Ml Vial) 4 mg IVPUSH Q8H PRN PRN Reason: Nausea and Vomiting Sodium Chloride (0.9 % Sodium Chloride Flush 3 Ml Syringe) 3 ml IVFLUSH QSHIFT [facility] Home Medications ?Medication ?Instructions ?Recorded ?Confirmed ?Last Taken ?Type empagliflozin 10 mg tablet 10 mg PO DAILY 10/29/23 09/23/24 09/21/24 History (Jardiance) carvedilol 25 mg tablet 25 mg PO BID 02/06/24 09/23/24 09/21/24 History escitalopram oxalate 10 mg tablet 10 mg PO DAILY 02/25/24 09/23/24 09/21/24 History pantoprazole 40 mg tablet,delayed 40 mg PO DAILY@0630 03/16/24 09/23/24 09/21/24 History release insulin glargine 100 unit/mL (3 10 unit subcut BEDTIME 07/03/24 09/23/24 09/21/24 History mL) subcutaneous pen (Lantus Solostar U-100 Insulin) flash glucose sensor (FreeStyle #1 ea 07/29/24 08/13/[address] 2 Sensor kit) pen needle, diabetic 31 gauge x #1,200 ea 07/29/24 08/13/24 Unknown History 05/17 Physical Exam Vital Signs and Narrative: Vital Signs: Last Vital Signs Temp 98.3 F 09/23/24 05:51 Pulse 88 09/23/24 07:58 Resp 14 09/23/24 07:58 BP 145/72 H 09/23/24 07:58 Pulse Ox 98 09/23/24 07:58 O2 Del Method Room Air 09/23/24 07:58 BMI result Body Mass Index 29.3 Const: Other: Constitutional - Awake and Alert, No apparent distress Cardiovascular - S1S2, RRR, No edema Respiratory - Normal lung expansion, Normal respiratory effort, No respiratory distress, CTA bilaterally Gastrointestinal - +epigastric TTP without rebound; no RUQ TTP - No CVA tenderness Extremities - no calf tenderness bilaterally, no swelling Musculoskeletal - Normal inspection, normal ROM Skin - Warm/Dry Neurological - Alert & oriented x3, No focal deficit Psychological - Appropriate affect Results Labs 09/23/24 03:59 09/23/24 04:38 Labs: Laboratory Results - last 24 hr 09/23/24 09/23/24 03:59 04:38 MCV 83.5 MCH 30.6 MCHC 36.7 H RDW 12.4 Plt Count 221 MPV 9.5 Immature Gran % (Auto) 0.2 Neut % (Auto) 80.2 H Lymph % (Auto) 11.6 L [place] % (Auto) 7.8 Eos % (Auto) 0.0 Baso % (Auto) 0.2 Lymph # (Auto) 1.0 L [place] # (Auto) 0.6 Eos # (Auto) 0.0 Baso # (Auto) 0.0 Abs Immat Gran (auto) 0.02 Absolute Neuts (auto) 6.6 Absolute Nucleated RBC 0.000 Nucleated RBC % (auto) 0.0 Anion Gap 15 Estim Creat Clear Calc 61.8 Estimated GFR 44 Random Glucose 230 H Calcium 8.7 Total Bilirubin 1.1 H AST 20 ALT 11 Alkaline Phosphatase 72 Total Protein 6.3 L Albumin 3.7 Lipase 17 Assessment and Plan (1) Uncontrolled hypertension: Status: Acute Plan 29-year-old male with multiple medical problems including uncontrolled hypertension, diabetes, CKD stage 2 and known cannabis associated hyperemesis syndrome who presents with a several day history of intractable nausea and vomiting with associated epigastric pain. Patient has failed p.o. challenge in the emergency room despite treatment. He is also noted to have KARUNA. 1. Intractable nausea and vomiting 1a. Gastritis Likely due to known hyperemesis syndrome IVF, IVF pepcic, IV zofran, IV analgesics clear liquids when he can tolerate consider GI consult if not improving 2. KARUNA on CKD2 Baseline SCr around 1.4-1.6; now 1.8 IVF follow BMP tomorrow 3. Uncontrolled HTN continue baseline meds, minimize IV 4. DM POC, sliding scale hold long acting until oral intake improved Full Code DVT pptx - lovenox Med rec pending, will continue baseline meds as appropriate once completed. Quality Stroke Does the patient have a stroke diagnosis?: No VTE Prior VTE?: No VTE Risk Level:: Medical - moderate - high VTE Device Contraindication: N/A - Device Ordered VTE Drug Contraindication: N/A - Med Ordered
--- NOTE | 2024-09-23 12:22 | PHA.MEDREC ---
Pharmacy Consult ? Medication Reconciliation Pharmacy has completed the medication reconciliation. Spoke to patient and girlfriend, he was very drowsy and only able to confirm a few medications. He confirmed Sucralfate, Pantoprazole, Lantus, Jardiance, and Amlodipine. His girlfriend was able to tell me the rest from memory. Matches claims mostly. He doesn't seem to be taking Atorvastatin 40mg yet.
--- NOTE | 2024-09-23 12:37 | MHC.CM.PN ---
Pt. lives with his girlfriend, PCP is [facility], HCP is on file and confirmed: Melinda and Yolie. For DME, pt. has diabetic supplies. He does not use home health services. His girlfriend can transport home at [place]. DCP: home, self care, CM to follow for DC needs.
[2024-09-23 13:03] LABS: Glucose, Whole Blood 165 mg/dL (60-115)
--- NOTE | 2024-09-23 16:25 | PC.NURSE ---
Pt medicated per MAR for pain. Reassessed at appropriate time- pt up oob c/o 12/11 pain with no relief from pain medications. Pt up oob ambulating around room, leaning over side of bed/leaning into sink with water flowing. MD Chopra made aware. Per MD- pt Morphine to be increased from 2mg to 4mg.
[2024-09-23 16:34] LABS: Glucose, Whole Blood 245 mg/dL (60-115)
[2024-09-23 21:43] LABS: Glucose, Whole Blood 114 mg/dL (60-115)
--- NOTE | 2024-09-23 22:16 | PC.NURSE ---
Pt c/o chest pain he reports as the same as the pain he has been having this visit and previous visits during my episodes and given PRN morphine with pt stating immediate effect. He reported nausea happens when he moves but is ok in between. Pt fell asleep and was resting in NAD. His blood pressure was 196/92. Pt refused his PO meds and MD made aware. BP rechecked after pain meds and down to 170's as noted in vitals section. Pt slept for approx an hour then woke up and was dry heaving in the sink. Pt unable to stand straight and was not demonstrating good safety awareness. He was assisted back to bed and bed alarm on. he vomited x1 approx 300cc. Pt arms/body almost rigid with hands clenched and body tremulous. He was able to stop completely when asked to do so. HR elevated to 137 He was noted to be clammy at this time.He was able to take his PO meds including carvedolol. MD made aware and EKG taken. Pt given alcohol preps to sniff and stated good relief from nausea. He has settled into bed and is now resting quietly, with face/body relaxed. no further vomiting/dry heaving. He is visible from the nursing station.....
[2024-09-24] VITALS (10 sets, daily range): BP systolic 150–201; BP diastolic 70–89; PULSE 83–121; RESP 14–24; TEMP 36.6–37.6; O2SAT 99–100; BMI 29.3
[2024-09-24] MEDS: Magnesium Hydrox/Alum Hydrox 30 ML ORAL.SUSP PO (03:19)
[2024-09-24 04:35] LABS: Glucose, Whole Blood 174 mg/dL (60-115)
[2024-09-24 04:49] LABS: Hematocrit 27.8 % (42.0-52.0); Hemoglobin 9.9 g/dl (14.0-18.0); Mean Corpuscular HGB Conc 35.6 g/dl (31.0-36.0); Mean Corpuscular Hemoglobin 29.6 pg (27.0-33.0); Mean Corpuscular Volume 83.2 fL (80.0-98.0); NRBC Abs Auto 0.000 X10*3/uL (0.0-0.012); NRBC Pct Auto 0.0 /100WBC (0.0-0.2); Platelet Count 185 X10*3/uL (160-400); Red Blood Count 3.34 X10*6/uL (4.60-5.80); White Blood Count 7.4 X10*3/uL (4.8-10.8)
[2024-09-24 05:06] LABS: Alanine Aminotransferase 11 U/L (0-40); Albumin Level 3.3 g/dL (3.5-5.0); Alkaline Phosphatase 65 U/L (39-117); Anion Gap 16 (12-20); Aspartate Amino Transferase 19 U/L (5-37); Blood Urea Nitrogen 27 mg/dL (9-16); Calcium 8.5 mg/dL (8.4-10.2); Carbon Dioxide 21 mmol/L (22-29); Chloride 104 mmol/L (96-108); Creatinine Clr Calc Pharmacy 70.9; Estimated Glomerular Filt Rate 52; Potassium 3.6 mmol/L (3.3-5.1); Sodium 137 mmol/L (135-145); Total Protein 5.6 g/dL (6.5-8.0)
[2024-09-24 07:59] LABS: Glucose, Whole Blood 192 mg/dL (60-115)
--- NOTE | 2024-09-24 08:31 | P.CDIM_ITS ---
PROVIDER RESPONSE TEXT: To clarify, the appropriate diagnosis supported by the clinical indicators: Gastritis: Acute QUERY TEXT: PHYSICIAN'S DOCUMENTATION REQUEST Date of Query: 09/24/2024 05:57 AM EDT Patient Name: CATHRYN TREADWELL Admit Date: 09/23/2024 Dear Fabián Chopra MD, A review of the medical record indicates additional documentation may be needed. Please review below and update the documentation accordingly. Clinical Indicators: H&P dated 09/23/24 - Plan: Intractable nausea and vomiting. Gastritis Likely due to known hyperemesis syndrome. IVF, IVF pepcic, IV zofran, IV analgesics Clear liquids when he can tolerate. Consider GI consult if not improving. Please clarify any further specifics to the documented Gastritis if known: Possible options might include: Gastritis acute, chronic, spastic, viral, superficial, due to diet deficiency, hypertrophic etc. Other specifics to the Gastritis Other (explain) Clinically unable to determine (explain) Thank you, Marylin Mak, CCS, CDIS Use of terms such as suspected, likely, concern for, or probable (associated with a specific diagnosis that is being evaluated, monitored, or treated as if it exists) are acceptable and can be coded in the inpatient setting, when documented at the time of discharge. Please use your independent medical judgment in providing your response. THIS QUERY IS PART OF THE PERMANENT MEDICAL RECORD
--- NOTE | 2024-09-24 08:57 | PC.NURSE ---
Pt cont to vomit with smallest PO intake; fluids removed from pt's room at this time and pt NPO pending provider instructions
--- NOTE | 2024-09-24 09:31 | PC.NURSE ---
Provider at bedside to eval pt for continued vomiting and bp 201/89; will treat per orders
[2024-09-24] MEDS: diazePAM 10 MG/2 ML CARTRIDGE 2.5 MG IVPUSH ×3 (09:47→20:23)
[2024-09-24] MEDS: 0.9 % Sodium Chloride Flush 3 ML SYRINGE IVFLUSH ×3 (09:50→20:23)
--- NOTE | 2024-09-24 10:51 | PC.NURSE ---
Pt reports relief of N/V and anxiety with IV meds gv
[2024-09-24 11:47] LABS: Glucose, Whole Blood 141 mg/dL (60-115)
[2024-09-24 16:13] LABS: Glucose, Whole Blood 202 mg/dL (60-115)
--- NOTE | 2024-09-24 16:46 | P.PNIM_ITS ---
Subjective Subjective Date of Service: 09/24/24 Interval History: seen and examined this morning follow up for nausea/vomiting persistent n/v; reporting anxiety Review of Systems Review of Systems: Yes all other systems are reviewed and are negative Constitutional Constitutional: Denies chills and Denies fever(s) Gastrointestinal Gastrointestinal: Reports nausea and Reports vomiting Physical Exam 2 Vital Signs: Vital Signs: Last Vital Signs Temp 98.2 F 09/24/24 15:06 Pulse 97 09/24/24 15:06 Resp 16 09/24/24 15:06 BP 156/75 H 09/24/24 15:06 Pulse Ox 100 09/24/24 15:06 O2 Del Method Room Air 09/24/24 15:06 BMI result Body Mass Index 29.3 Const: Other: appears uncomfortable General: alert and awake Nutritional Appearance: average body habitus Orientation/consciousness: patient oriented x3 Resp: Effort & Inspection: normal respiratory effort and able to speak in complete sentences GI: Inspection: No distended Neuro: General: patient oriented x3, moves all extremities and CN's II-XI intact bilaterally Objective Data Active Medications Acetaminophen (Acetaminophen 325 Mg Tablet) 650 mg PO Q6H PRN PRN Reason: Pain, Mild 1-3,fever,headache Amlodipine Besylate (Amlodipine Besylate 10 Mg Tablet) 10 mg PO DAILY [facility]; Protocol Last Admin: 09/24/24 08:33 Dose: 10 mg Documented By: KATIE Calcium Carbonate (Calcium Carbonate 750 Mg Tab.Chew) 750 mg PO Q4H PRN PRN Reason: Heartburn Last Admin: 09/24/24 06:37 Dose: 750 mg Documented By: DAMION Carvedilol (Carvedilol 25 Mg Tablet) 25 mg PO BID [facility]; Protocol Last Admin: 09/24/24 09:13 Dose: Not Given Documented By: KATIE Non-Admin Reason: Nausea Diazepam (Diazepam 10 Mg/2 Ml Cartridge) 2.5 mg IVPUSH Q8H PRN PRN Reason: anxiety Last Admin: 09/24/24 12:30 Dose: 2.5 mg Documented By: LONNY Escitalopram Oxalate (Escitalopram Oxalate 10 Mg Tablet) 10 mg PO DAILY [facility] Last Admin: 09/24/24 08:33 Dose: 10 mg Documented By: KATIE Famotidine (Famotidine/Pf 20 Mg/2 Ml Vial) 20 mg IVPUSH Q12H [facility] Last Admin: 09/24/24 06:13 Dose: 20 mg Documented By: DAMION Hydralazine HCl (Hydralazine Hcl 20 Mg/Ml Vial) 5 mg IVPUSH Q6H PRN; Protocol PRN Reason: SBP >180 Last Admin: 09/24/24 09:44 Dose: 5 mg Documented By: KATIE Insulin Human Lispro (Insulin Lispro 100 Unit/Ml 3 Ml Vial) 0 unit SUBCUT QIDACHS [facility]; Protocol Last Admin: 09/24/24 11:51 Dose: Not Given Documented By: LONNY Non-Admin Reason: No Insulin Coverage Magnesium Hydroxide (Milk Of Magnesia 30 Ml Oral.Susp) 30 ml PO DAILY PRN PRN Reason: Constipation Melatonin (Melatonin 3 Mg Tablet) 6 mg PO BEDTIME PRN PRN Reason: Insomnia Last Admin: 09/23/24 22:09 Dose: 6 mg Documented By: DAMION Metoclopramide HCl (Metoclopramide Hcl 10 Mg/2 Ml Vial) 5 mg IVPUSH Q6H PRN PRN Reason: Nausea and Vomiting Last Admin: 09/24/24 09:50 Dose: 5 mg Documented By: KATIE Morphine Sulfate (Morphine Sulfate 2 Mg/Ml Cartridge) 4 mg IVPUSH Q4H PRN; Protocol PRN Reason: Pain, Severe (Pain Scale 7-10) Last Admin: 09/24/24 10:55 Dose: 4 mg Documented By: KATIE Omeprazole (Omeprazole 20 Mg Capsule.) 20 mg PO DAILY@0630 [facility] Last Admin: 09/24/24 06:16 Dose: 20 mg Documented By: DAMION Ondansetron HCl (Ondansetron Hcl 4 Mg/2 Ml Vial) 4 mg IVPUSH Q8H PRN PRN Reason: Nausea and Vomiting Last Admin: 09/24/24 12:30 Dose: 4 mg Documented By: LONNY Sodium Chloride (0.9 % Sodium Chloride Flush 3 Ml Syringe) [facility] Last Admin: 09/24/24 09:50 Dose: 3 ml Documented By: KATIE Sucralfate (Sucralfate 1 Gm Tablet) 1 gm PO BID [facility] Last Admin: 09/24/24 09:13 Dose: Not Given Documented By: KATIE Non-Admin Reason: Nausea Labs 09/24/24 04:31 09/24/24 04:31 Labs: Laboratory Results - last 24 hr 09/23/24 09/24/24 09/24/24 21:39 02:28 04:31 MCV 83.2 MCH 29.6 MCHC 35.6 RDW 11.9 Plt Count 185 MPV 9.5 Absolute Nucleated RBC 0.000 Nucleated RBC % (auto) 0.0 Anion Gap 16 Estim Creat Clear Calc 70.9 Estimated GFR 52 POC Glucose 114 174 H Random Glucose 232 H Calcium 8.5 Total Bilirubin 1.2 H AST 19 ALT 11 Alkaline Phosphatase 65 Total Protein 5.6 L Albumin 3.3 L 09/24/24 09/24/24 09/24/24 07:54 11:43 16:03 MCV MCH MCHC RDW Plt Count MPV Absolute Nucleated RBC Nucleated RBC % (auto) Anion Gap Estim Creat Clear Calc Estimated GFR POC Glucose 192 H 141 H 202 H Random Glucose Calcium Total Bilirubin AST ALT Alkaline Phosphatase Total Protein Albumin Assessment and Plan (1) Cyclical vomiting: Status: Acute Plan 29-year-old male with multiple medical problems including uncontrolled hypertension, diabetes, CKD stage 2 and known cannabis associated hyperemesis syndrome who presents with a several day history of intractable nausea and vomiting with associated epigastric pain. Patient has failed p.o. challenge in the emergency room despite treatment. He is also noted to have KARUNA. 1. Intractable nausea and vomiting Likely due to known hyperemesis syndrome IVF, IVF pepcid, IV zofran, IV analgesics; carafate clear liquids when he can tolerate consider GI consult if not improving- seen by GI on last admission and outpatient - planned outpatient endoscopy 2. KARUNA on CKD2 Baseline SCr around 1.4-1.6; initially 1.8, back down to baseline IVF 3. Uncontrolled HTN continue baseline meds prn IV hydralazine as needed, minimize IV if able 4. DM POC, sliding scale hold long acting until oral intake improved Full Code DVT pptx - lovenox Quality Stroke Does the patient have a stroke diagnosis?: No VTE Prior VTE?: No VTE Risk Level:: Medical - moderate - high VTE Device Contraindication: N/A - Device Ordered VTE Drug Contraindication: N/A - Med Ordered
[2024-09-24 20:13] LABS: Cannabinoid Screen Urine POSITIVE (Not Detect)
[2024-09-24 20:54] LABS: Glucose, Whole Blood 121 mg/dL (60-115)
[2024-09-25 00:15] LABS: Glucose, Whole Blood 136 mg/dL (60-115)
[2024-09-25 03:37] VITALS: BP 164/77; PULSE 84; RESP 18; TEMP 36.6; O2SAT 98
[2024-09-25] MEDS: diazePAM 10 MG/2 ML CARTRIDGE 2.5 MG IVPUSH ×3 (05:25→21:09)
[2024-09-25 06:15] LABS: Hematocrit 29.3 % (42.0-52.0); Hemoglobin 10.3 g/dl (14.0-18.0); Mean Corpuscular HGB Conc 35.2 g/dl (31.0-36.0); Mean Corpuscular Hemoglobin 29.3 pg (27.0-33.0); Mean Corpuscular Volume 83.2 fL (80.0-98.0); NRBC Abs Auto 0.000 X10*3/uL (0.0-0.012); NRBC Pct Auto 0.0 /100WBC (0.0-0.2); Platelet Count 212 X10*3/uL (160-400); Red Blood Count 3.52 X10*6/uL (4.60-5.80); White Blood Count 8.1 X10*3/uL (4.8-10.8)
[2024-09-25 07:31] LABS: Glucose, Whole Blood 174 mg/dL (60-115)
[2024-09-25 07:51] VITALS: BP 188/82; PULSE 84; RESP 18; TEMP 37; O2SAT 98
[2024-09-25] MEDS: 0.9 % Sodium Chloride Flush 3 ML SYRINGE IVFLUSH ×3 (08:06→21:07)
[2024-09-25 11:13] LABS: Glucose, Whole Blood 128 mg/dL (60-115)
--- NOTE | 2024-09-25 11:28 | MHC.CM.PN ---
Patient not medically cleared for dc. Anticipate home self care. CM will continue to follow.
[2024-09-25 14:03] VITALS: BP 165/86; PULSE 100; RESP 18; O2SAT 100
--- NOTE | 2024-09-25 15:41 | HO.PM.IMPN ---
Subjective Subjective Date of Service: 09/25/24 Interval History: Seen and examined this morning Follow-up for cyclical vomiting, uncontrolled hypertension Patient reporting anxiety Denies abdominal pain Review of Systems Review of Systems: Yes all other systems are reviewed and are negative Constitutional Constitutional: Denies chills and Denies fever(s) Physical Exam Vital Signs: Vital Signs: Last Vital Signs Temp 98.6 F 09/25/24 07:51 Pulse 100 09/25/24 14:03 Resp 18 09/25/24 14:03 BP 165/86 H 09/25/24 14:03 Pulse Ox 100 09/25/24 14:03 O2 Del Method Room Air 09/25/24 14:03 BMI result Body Mass Index 29.3 Const: General: alert and awake Nutritional Appearance: average body habitus Orientation/consciousness: patient oriented x3 Resp: Effort & Inspection: normal respiratory effort and able to speak in complete sentences GI: Inspection: No distended Neuro: General: patient oriented x3, moves all extremities and CN's II-XI intact bilaterally Objective Data Active Medications Acetaminophen (Acetaminophen 325 Mg Tablet) 650 mg PO Q6H PRN PRN Reason: Pain, Mild 1-3,fever,headache Amlodipine Besylate (Amlodipine Besylate 10 Mg Tablet) 10 mg PO DAILY [facility]; Protocol Last Admin: 09/25/24 07:56 Dose: 10 mg Documented By: CANELO Calcium Carbonate (Calcium Carbonate 750 Mg Tab.Chew) 750 mg PO Q4H PRN PRN Reason: Heartburn Last Admin: 09/25/24 00:18 Dose: 750 mg Documented By: CASTHECTOR Carvedilol (Carvedilol 25 Mg Tablet) 25 mg PO BID [facility]; Protocol Last Admin: 09/25/24 07:55 Dose: 25 mg Documented By: CANELO Diazepam (Diazepam 10 Mg/2 Ml Cartridge) 2.5 mg IVPUSH Q8H PRN PRN Reason: anxiety Last Admin: 09/25/24 14:02 Dose: 2.5 mg Documented By: CANELO Escitalopram Oxalate (Escitalopram Oxalate 10 Mg Tablet) 10 mg PO DAILY [facility] Last Admin: 09/25/24 07:58 Dose: 10 mg Documented By: CANELO Famotidine (Famotidine/Pf 20 Mg/2 Ml Vial) 20 mg IVPUSH Q12H [facility] Last Admin: 09/25/24 05:25 Dose: 20 mg Documented By: SUMMER Hydralazine HCl (Hydralazine Hcl 20 Mg/Ml Vial) 5 mg IVPUSH Q6H PRN; Protocol PRN Reason: SBP >180 Last Admin: 09/24/24 09:44 Dose: 5 mg Documented By: KATIE Insulin Human Lispro (Insulin Lispro 100 Unit/Ml 3 Ml Vial) 0 unit SUBCUT QIDACHS [facility]; Protocol Last Admin: 09/25/24 11:24 Dose: Not Given Documented By: CANELO Non-Admin Reason: No Insulin Coverage Magnesium Hydroxide (Milk Of Magnesia 30 Ml Oral.Susp) 30 ml PO DAILY PRN PRN Reason: Constipation Melatonin (Melatonin 3 Mg Tablet) 6 mg PO BEDTIME PRN PRN Reason: Insomnia Last Admin: 09/24/24 20:24 Dose: 6 mg Documented By: SUMMER Metoclopramide HCl (Metoclopramide Hcl 10 Mg/2 Ml Vial) 5 mg IVPUSH Q6H PRN PRN Reason: Nausea and Vomiting Last Admin: 09/25/24 06:09 Dose: 5 mg Documented By: SUMMER Morphine Sulfate (Morphine Sulfate 2 Mg/Ml Cartridge) 4 mg IVPUSH Q4H PRN; Protocol PRN Reason: Pain, Severe (Pain Scale 7-10) Last Admin: 09/25/24 06:10 Dose: 4 mg Documented By: SUMMER Omeprazole (Omeprazole 20 Mg Capsule.Dr) 20 mg PO DAILY@0630 [facility] Last Admin: 09/25/24 05:25 Dose: 20 mg Documented By: SUMMER Ondansetron HCl (Ondansetron Hcl 4 Mg/2 Ml Vial) 4 mg IVPUSH Q8H PRN PRN Reason: Nausea and Vomiting Last Admin: 09/25/24 10:33 Dose: 4 mg Documented By: CANELO Sodium Chloride (0.9 % Sodium Chloride Flush 3 Ml Syringe) 3 ml IVFLUSH QSHIFT [facility] Last Admin: 09/25/24 08:06 Dose: 3 ml Documented By: CANELO Sucralfate (Sucralfate 1 Gm Tablet) 1 gm PO BID [facility] Last Admin: 09/25/24 08:06 Dose: Not Given Documented By: CANELO Non-Admin Reason: Nausea Labs 09/25/24 05:45 09/24/24 04:31 Labs: Laboratory Results - last 24 hr 09/24/24 09/24/24 09/24/24 16:03 19:55 20:24 MCV MCH MCHC RDW Plt Count MPV Absolute Nucleated RBC Nucleated RBC % (auto) POC Glucose 202 H 121 H Urine Opiates Screen POSITIVE H Ur Buprenorphine Scrn Not Detected Ur Oxycodone Screen Not Detected Urine Methadone Screen Not Detected Urine Fentanyl Screen Not Detected Ur Barbiturates Screen Not Detected Ur Phencyclidine Scrn Not Detected Ur Amphetamines Screen Not Detected U Benzodiazepines Scrn Not Detected Urine Cocaine Screen Not Detected U Marijuana (THC) Screen POSITIVE H 09/25/24 09/25/24 09/25/24 00:12 05:45 07:27 MCV 83.2 MCH 29.3 MCHC 35.2 RDW 11.9 Plt Count 212 MPV 9.4 Absolute Nucleated RBC 0.000 Nucleated RBC % (auto) 0.0 POC Glucose 136 H 174 H Urine Opiates Screen Ur Buprenorphine Scrn Ur Oxycodone Screen Urine Methadone Screen Urine Fentanyl Screen Ur Barbiturates Screen Ur Phencyclidine Scrn Ur Amphetamines Screen U Benzodiazepines Scrn Urine Cocaine Screen U Marijuana (THC) Screen 09/25/24 11:08 MCV MCH MCHC RDW Plt Count MPV Absolute Nucleated RBC Nucleated RBC % (auto) POC Glucose 128 H Urine Opiates Screen Ur Buprenorphine Scrn Ur Oxycodone Screen Urine Methadone Screen Urine Fentanyl Screen Ur Barbiturates Screen Ur Phencyclidine Scrn Ur Amphetamines Screen U Benzodiazepines Scrn Urine Cocaine Screen U Marijuana (THC) Screen Assessment and Plan (1) Cyclical vomiting: Status: Acute Plan 29-year-old male with multiple medical problems including uncontrolled hypertension, diabetes, CKD stage 2 and known cannabis associated hyperemesis syndrome who presents with a several day history of intractable nausea and vomiting with associated epigastric pain. Patient has failed p.o. challenge in the emergency room despite treatment. He is also noted to have KARUNA. 1. Intractable nausea and vomiting Likely due to known hyperemesis syndrome IVF, IVF pepcid, IV zofran, IV analgesics; carafate Nausea but no vomiting today, we will advanced to full liquids consider GI consult if not improving- seen by GI on last admission and outpatient - planned outpatient endoscopy 2. KARUNA on CKD2 Baseline SCr around 1.4-1.6; initially 1.8, back down to baseline IVF 3. Uncontrolled HTN continue baseline meds prn IV hydralazine as needed, minimize IV if able 4. DM POC, sliding scale hold long acting until oral intake improved Full Code DVT pptx - lovenox Quality Stroke Does the patient have a stroke diagnosis?: No VTE Prior VTE?: No VTE Risk Level:: Medical - moderate - high VTE Device Contraindication: N/A - Device Ordered VTE Drug Contraindication: N/A - Med Ordered
[2024-09-25 15:42] VITALS: BP 166/79; PULSE 88; RESP 16; TEMP 37; O2SAT 99
[2024-09-25 16:36] LABS: Glucose, Whole Blood 163 mg/dL (60-115)
[2024-09-25 19:34] VITALS: BP 172/87; PULSE 85; RESP 12; TEMP 37.3; O2SAT 100
[2024-09-25 21:00] LABS: Glucose, Whole Blood 174 mg/dL (60-115)
[2024-09-25 21:06] VITALS: BP 172/85; PULSE 85
[2024-09-26] VITALS (9 sets, daily range): BP systolic 136–186; BP diastolic 69–93; PULSE 70–99; RESP 16–20; TEMP 36.7–37.4; O2SAT 97–100
[2024-09-26 07:49] LABS: Glucose, Whole Blood 158 mg/dL (60-115)
[2024-09-26] MEDS: 0.9 % Sodium Chloride Flush 3 ML SYRINGE IVFLUSH ×3 (08:12→21:18)
[2024-09-26 11:11] LABS: Glucose, Whole Blood 170 mg/dL (60-115)
[2024-09-26] MEDS: diazePAM 10 MG/2 ML CARTRIDGE 2.5 MG IVPUSH ×2 (11:59→21:18)
--- NOTE | 2024-09-26 15:19 | HO.PM.IMPN ---
Subjective Subjective Date of Service: 09/26/24 Interval History: Seen and examined this morning Follow-up for nausea/vomiting Beginning to improve, no active vomiting Constitutional Constitutional: Denies chills and Denies fever(s) Physical Exam Vital Signs: Vital Signs: Last Vital Signs Temp 98.3 F 09/26/24 08:00 Pulse 81 09/26/24 10:41 Resp 18 09/26/24 08:02 BP 140/78 H 09/26/24 10:41 Pulse Ox 99 09/26/24 08:00 O2 Del Method Room Air 09/26/24 08:00 BMI result Body Mass Index 29.3 Const: General: alert and awake Nutritional Appearance: average body habitus Orientation/consciousness: patient oriented x3 Resp: Effort & Inspection: normal respiratory effort and able to speak in complete sentences GI: Inspection: No distended Neuro: General: patient oriented x3, moves all extremities and CN's II-XI intact bilaterally Objective Data Active Medications Acetaminophen (Acetaminophen 325 Mg Tablet) 650 mg PO Q6H PRN PRN Reason: Pain, Mild 1-3,fever,headache Last Admin: 09/26/24 11:59 Dose: 650 mg Documented By: AMANDA Amlodipine Besylate (Amlodipine Besylate 10 Mg Tablet) 10 mg PO DAILY [facility]; Protocol Last Admin: 09/26/24 08:04 Dose: 10 mg Documented By: AMANDA Calcium Carbonate (Calcium Carbonate 750 Mg Tab.Chew) 750 mg PO Q4H PRN PRN Reason: Heartburn Last Admin: 09/25/24 00:18 Dose: 750 mg Documented By: CASTHECTOR Carvedilol (Carvedilol 25 Mg Tablet) 25 mg PO BID [facility]; Protocol Last Admin: 09/26/24 08:03 Dose: 25 mg Documented By: AMANDA Diazepam (Diazepam 10 Mg/2 Ml Cartridge) 2.5 mg IVPUSH Q8H PRN PRN Reason: anxiety Last Admin: 09/26/24 11:59 Dose: 2.5 mg Documented By: AMANDA Escitalopram Oxalate (Escitalopram Oxalate 10 Mg Tablet) 10 mg PO DAILY [facility] Last Admin: 09/26/24 08:04 Dose: 10 mg Documented By: AMANDA Famotidine (Famotidine/Pf 20 Mg/2 Ml Vial) 20 mg IVPUSH Q12H [facility] Last Admin: 09/26/24 06:02 Dose: 20 mg Documented By: SUMMER Hydralazine HCl (Hydralazine Hcl 20 Mg/Ml Vial) 5 mg IVPUSH Q6H PRN; Protocol PRN Reason: SBP >180 Last Admin: 09/24/24 09:44 Dose: 5 mg Documented By: KATIE Insulin Human Lispro (Insulin Lispro 100 Unit/Ml 3 Ml Vial) [facility]; Protocol Last Admin: 09/26/24 11:59 Dose: 2 unit Documented By: AMANDA Magnesium Hydroxide (Milk Of Magnesia 30 Ml Oral.Susp) 30 ml PO DAILY PRN PRN Reason: Constipation Melatonin (Melatonin 3 Mg Tablet) 6 mg PO BEDTIME PRN PRN Reason: Insomnia Last Admin: 09/25/24 21:07 Dose: 6 mg Documented By: SUMMER Metoclopramide HCl (Metoclopramide Hcl 10 Mg/2 Ml Vial) 5 mg IVPUSH Q6H PRN PRN Reason: Nausea and Vomiting Last Admin: 09/26/24 08:09 Dose: 5 mg Documented By: AMANDA Morphine Sulfate (Morphine Sulfate 2 Mg/Ml Cartridge) 4 mg IVPUSH Q4H PRN; Protocol PRN Reason: Pain, Severe (Pain Scale 7-10) Last Admin: 09/26/24 08:02 Dose: 4 mg Documented By: AMANDA Omeprazole (Omeprazole 20 Mg Capsule.Dr) 20 mg PO DAILY@0630 [facility] Last Admin: 09/26/24 06:02 Dose: 20 mg Documented By: SUMMER Ondansetron HCl (Ondansetron Hcl 4 Mg/2 Ml Vial) 4 mg IVPUSH Q8H PRN PRN Reason: Nausea and Vomiting Last Admin: 09/26/24 03:41 Dose: 4 mg Documented By: SUMMER Sodium Chloride (0.9 % Sodium Chloride Flush 3 Ml Syringe) [facility] Last Admin: 09/26/24 08:12 Dose: 3 ml Documented By: AMANDA Sucralfate (Sucralfate 1 Gm Tablet) 1 gm PO BID [facility] Last Admin: 09/26/24 08:03 Dose: 1 gm Documented By: AMANDA Labs 09/25/24 05:45 09/24/24 04:31 Labs: Laboratory Results - last 24 hr 09/25/24 09/25/24 09/26/24 16:30 20:56 07:45 POC Glucose 163 H 174 H 158 H 09/26/24 11:08 POC Glucose 170 H Assessment and Plan (1) Cyclical vomiting: Status: Acute Plan 29-year-old male with multiple medical problems including uncontrolled hypertension, diabetes, CKD stage 2 and known cannabis associated hyperemesis syndrome who presents with a several day history of intractable nausea and vomiting with associated epigastric pain. Patient has failed p.o. challenge in the emergency room despite treatment. He is also noted to have KARUNA. 1. Intractable nausea and vomiting Likely due to known hyperemesis syndrome IVF, IVF pepcid, IV zofran, IV analgesics; carafate will trial diet advancement seen by GI on last admission and outpatient - planned outpatient endoscopy 2. KARUNA on CKD2 Baseline SCr around 1.4-1.6; initially 1.8, back down to baseline IVF 3. Uncontrolled HTN continue baseline meds bp improving as pt tolerating po meds prn IV hydralazine as needed, minimize IV if able 4. DM POC, sliding scale hold long acting until oral intake improved Full Code DVT pptx - lovenox Quality Stroke Does the patient have a stroke diagnosis?: No VTE Prior VTE?: No VTE Risk Level:: Medical - moderate - high VTE Device Contraindication: N/A - Device Ordered VTE Drug Contraindication: N/A - Med Ordered
[2024-09-26 16:12] LABS: Glucose, Whole Blood 149 mg/dL (60-115)
[2024-09-26 21:10] LABS: Glucose, Whole Blood 172 mg/dL (60-115)
[2024-09-27 03:19] VITALS: BP 180/85; PULSE 66; RESP 18; TEMP 36.5; O2SAT 100
[2024-09-27 05:00] VITALS: BP 172/86; PULSE 69
[2024-09-27 07:53] LABS: Glucose, Whole Blood 156 mg/dL (60-115)
[2024-09-27 08:00] VITALS: BP 165/88; PULSE 83; RESP 14; TEMP 37; O2SAT 99
[2024-09-27 08:06] VITALS: BP 165/88
[2024-09-27 08:08] VITALS: BP 165/88; PULSE 83
[2024-09-27] MEDS: 0.9 % Sodium Chloride Flush 3 ML SYRINGE IVFLUSH (08:16)
[2024-09-27] MEDS: diazePAM 10 MG/2 ML CARTRIDGE 2.5 MG IVPUSH (08:17)
--- NOTE | 2024-09-27 10:05 | P.DS_ITS ---
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 Patient reports associated epigastric sharp/stabbing pain. He denies any hematemesis. He denies any diarrhea. Patient reports that due to ongoing symptoms and an inability to tolerate even liquids, he presented to the emergency room. Patient's workup in the ED revealed signs of dehydration and acute kidney injury with a BUN and creatinine of 36/1.8. Glucose 230. T bili 1.1. Bicarb 21. CBC appears to be at baseline. In the emergency room the patient was treated with multiple liters of IV fluids and IV antiemetics. He was given IV H2 blockers. Subsequent to this, the patient was given a p.o. challenge which he failed with resultant vomiting. Hence, the patient will be admitted for further care. Intractable nausea and vomiting Likely due to known hyperemesis syndrome. Treated with IVF, IVF pepcid, IV zofran and IV analgesics as well as baseline carafate and symptoms gradually improved. Patient tolerated diet advancement and is stable to return home. He was seen by GI on last admission and followed as outpatient basis outpatient currently scheduled to have outpatient endoscopy. Anxiety seems to be playing a role, he reports having a follow-up appointment with his psychiatric provider this upcoming week. KARUNA on CKD 2 improved to baseline with IV fluid. Uncontrolled hypertension. Improved with resuming baseline medications. Time Attestation Discharge Coordination Time (in mins): 32 Quality: Safe Use of Opioids Does Pt have an Active Cancer Diagnosis on the Problem List?: No Quality: Stroke Does the patient have a stroke diagnosis?: No Physical Exam Vital Signs: Vital Signs: Last Vital Signs Temp 98.6 F 09/27/24 08:00 Pulse 83 09/27/24 08:08 Resp 14 09/27/24 08:00 BP 165/88 H 09/27/24 08:08 Pulse Ox 99 09/27/24 08:00 O2 Del Method Room Air 09/27/24 08:00 BMI result Body Mass Index 29.3 Const: General: alert and awake Nutritional Appearance: average body habitus Orientation/consciousness: patient oriented x3 Resp: Effort & Inspection: normal respiratory effort and able to speak in complete sentences GI: Inspection: No distended Palpation (GI): Soft to palpation Neuro: General: patient oriented x3, moves all extremities and CN's II-XI intact bilaterally DS: Data Data Completed and Pending Labs on day of discharge: Laboratory Results - last 24 hr 09/26/24 09/26/24 09/26/24 11:08 16:08 21:07 POC Glucose 170 H 149 H 172 H 09/27/24 07:49 POC Glucose 156 H Discharge Plan Discharge Anticipated Discharge Date/Time: 09/27/24 10:18 Patient Disposition: Home, Self-Care Discharge Diagnosis: Recurrent nausea and vomiting Uncontrolled hypertension KARUNA-resolved Referrals: Leanne Alcazar, [employer] [Primary Care Provider, Medical] - 1 Week Discharge Medications: Continued famotidine 20 mg tablet 20 mg PO BEDTIME Qty: 30 3RF carvedilol 25 mg tablet 25 mg PO BID Jardiance 10 mg tablet 10 mg PO DAILY escitalopram oxalate 10 mg tablet 10 mg PO DAILY insulin glargine [Lantus Solostar U-100 Insulin] 100 unit/mL (3 mL) insulin pen 10 unit subcut BEDTIME amlodipine [Norvasc] 10 mg tablet 10 mg PO DAILY Qty: 90 0RF pantoprazole 40 mg tablet,delayed release (DR/EC) 40 mg PO DAILY@0630 (DME) pen needle, diabetic 31 gauge x 3/16 needle See Rx Instructions .ROUTE DAILY Qty: 1200 Rx Instructions: As directed (DME) FreeStyle Ave 2 Sensor Kit See Rx Instructions .ROUTE Q2W Qty: 1 Rx Instructions: As directed sucralfate 1 gram tablet 1 g PO BID Qty: 60 3RF losartan 100 mg tablet 100 mg PO DAILY Qty: 90 5RF Discharge Orders: Discharge Order (Routine); Ordered 09/27/24 Ordered By: Yuly Shearer Activity on Discharge: As tolerated Stand Alone Forms: Patient Portal Discharge page, Work/School Release Print Language: Nauruan Care Plan Goals: see below Health Concerns: nausea and vomiting uncontrolled HTN anxiety Plan of Treatment: take all medications as prescribed Follow-up with GI Follow-up with provider for anxiety to discuss possible medication adjustment Assessment: see discharge summary Discharge Date/Time: 09/27/24 12:54
--- NOTE | 2024-09-27 10:51 | MHC.CM.PN ---
PT CLEARED TO DC HOME TODAY WITH NO SERVICES VIA SELF ARRANGED TRANSPORT
[2024-09-27 11:25] LABS: Glucose, Whole Blood 156 mg/dL (60-115)
== END 2024-09-27 12:54 | disposition home or self-care (01) | DRG 422 ==
LOC: HO.ED 07:14 → HO.EDOVER 07:29 → HO.S3 09-24 10:44
PROVIDERS: Family Medicine; Admitting Provider Student in an Organized Health Care Education/Training Program; Emergency Provider Emergency Medicine; PCP Registered Nurse; Visit Provider Physician Assistant Medical
DX: E86.0 Dehydration (principal); N17.9 Acute kidney failure, unspecified; R11.2 Nausea with vomiting, unspecified; E11.22 Type 2 diabetes mellitus with diabetic chronic kidney disease; N18.2 Chronic kidney disease, stage 2 (mild); I12.9 Hypertensive chronic kidney disease with stage 1 through stage 4 chronic kidney disease, or unspecified chronic kidney disease; K29.00 Acute gastritis without bleeding; F12.90 Cannabis use, unspecified, uncomplicated; Z79.4 Long term (current) use of insulin; Z79.899 Other long term (current) drug therapy
CPT/HCPCS: 36415; 80053; 80307; 82947; 83690; 84484; 85025; 85027; 93005; 99285; J0360; J0737; J1200; J1308; J2270; J2405; J2765; J3360; J7120

== ENCOUNTER → 2024-09-23 04:21 | Outpatient (BNV) | payer MEDICAID, SELFPAY | PROVIDERS: Admitting Provider Student in an Organized Health Care Education/Training Program; Emergency Provider Emergency Medicine; Visit Provider Internal Medicine Cardiovascular Disease | DX: R07.9 Chest pain, unspecified (principal) | CPT/HCPCS: 93010 ==

== ENCOUNTER → 2024-09-23 06:53 | Outpatient (BNV) | payer MEDICAID, SELFPAY | PROVIDERS: Admitting Provider Student in an Organized Health Care Education/Training Program; Emergency Provider Emergency Medicine; Visit Provider Family Medicine | DX: R11.15 Cyclical vomiting syndrome unrelated to migraine (principal) | CPT/HCPCS: 99223; 99232 ==

== ENCOUNTER 2024-10-27 15:57 | Outpatient (AMB) | payer MEDICAID, SELFPAY ==
--- NOTE | 2024-10-27 15:59 | A.OFFVIS_ITS ---
Vital Signs 10/27/24 16:00 Height 5 ft 7 in Weight 212 lb BMI 33.2 BP 156/80 H Blood Pressure Location Lt brachial Position Sitting Pulse 86 Pulse Source Pulse Oximeter Pulse Oximetry (%) 99 Oxygen Delivery Method Room Air Intake Visit Reasons: 3 month follow up GERD Intake Note: ESTABLISHED PATIENT for chronic gastritis + GERD mgmt. CC; C.O. N+V, GERD persistence despite current tx. Pt states that his sx are mitigated from last visit but not resolved. Glassware Finisher Required: No Accompanied by: Self / Same As Patient Allergies No Known Allergies (No Known Allergies*) Allergy (Verified 10/27/24 15:59) HPI HPI 3 month follow up GERD: Details: LAST VISIT: GERD (gastroesophageal reflux disease) Postprandial epigastric pain Nausea & vomiting Plan Patient will start taking sucralfate twice a day and hold famotidine. Continue taking PPI in the morning. Will repeat A1c, CBC, CMP and lipase. Patient will be scheduled to go for upper endoscopy. Message sent to director surgical stool book procedure for patient. I will see him after the procedure. Patient is going for stress test. History of cardiomyopathy. Currently on multiple hypertensive medications and his blood pressure still being high. Patient is agreeable to current plan of care and verbalizes understanding of instructions. He was given the opportunity to ask questions and all questions answered. ? Thank you for allowing me to participate in his care Orders Hemoglobin A1c Today Z83.3 Complete Blood Count no Diff Today K21.9 Comprehensive Met. Panel Today K21.9 Lipase Today R10.9 New sucralfate 1 g PO BID 60 tabs 3RF TODAY'S VISIT Patient is here today for follow-up. He continues to have epigastric pain despite taking PPI and sucralfate twice a day. His blood sugars are not well optimized as well as his blood pressure. He has not followed with endocrinology yet. Will send a message to endocrinology provider to see if patient can be seen. Patient reports not much change in his diet. Patient gained 25 lb since July. Admitted again in September for acute kidney injury. Patient reports that he is not exercising currently. Reports that he is moving his bowels well without any issues. Reports occasional dyspepsia without dysphagia or odynophagia. [facility] Medical History (Updated 11/05/24 @ 13:21 by Josselin Valladares [facility]) GERD (gastroesophageal reflux disease) Chronic kidney disease Cannabis hyperemesis syndrome concurrent with and due to cannabis dependence Cannabis use disorder Hypertension Anxiety Chest pain ADHD Generalized anxiety disorder Type 2 diabetes mellitus Hypertension Surgical History [place] teeth extracted History of appendectomy History of eye surgery (~06/2022) Family History Father HTN (hypertension) Mother Arthritis Sister Lupus (systemic lupus erythematosus) Social History Household Members: Spouse and Children Housing: Apartment Do you presently have visiting nurse or other home services: No Alcohol intake: former Patient Tobacco Use Status: Never used Tobacco e-Cigarette/Vaping Use: Never Used Second Hand Smoke Exposure: No (N/A) Substance Use Type: Marijuana Advance Directives Date on File: 11/01/23 service: No Review of Systems Const Denies weight gain and Denies weight loss ENT Reports no additional complaints, Denies dysphagia and Denies odynophagia Card Reports no additional complaints Resp Reports no additional complaints GI Reports abdominal pain (Epigastric), Denies belching, Denies melena, Reports bloating, Denies change in bowel habits, Denies dysphagia, Denies excessive flatus, Reports dyspepsia, Reports heartburn, Denies diarrhea, Reports loose stools (Occasionally), Denies nausea, Denies odynophagia and Denies vomiting Reports no additional complaints Musc Reports no additional complaints Neuro Reports no additional complaints Psych Reports no additional complaints Endo Reports no additional complaints Physical Exam Vital Signs: Last Vital Signs Pulse 86 10/27/24 16:00 BP 156/80 H 10/27/24 16:00 Pulse Ox 99 10/27/24 16:00 Oxygen Delivery Method Room Air 10/27/24 16:00 BMI result Body Mass Index 33.2 Const General: healthy appearing and no acute distress Nutritional Appearance: obese Orientation/consciousness: patient oriented x3 Resp Effort & Inspection: normal respiratory effort, able to speak in complete sentences, no tracheal deviation and symmetric chest movement Auscultation: clear to auscultation bilaterally Cardio Rate: regular rate GI Inspection: Yes normal to inspection and No distended Palpation (GI): Soft to palpation, not firm, nontender and No hepatosplenomegaly present Auscultation: normal bowel sounds General: Yes no CVA tenderness Back/Spine/Pelvis Back: no CVA tenderness Skin General skin exam: elasticity normal, turgor normal and dry skin Neuro General: patient oriented x3 Psych Appearance: grossly normal Mental Status: mental status grossly normal Assessment & Plan Assessment & Plan (1) Cyclical vomiting: Code(s): R11.15 - Cyclical vomiting syndrome unrelated to migraine Category: Medical (2) GERD (gastroesophageal reflux disease): Code(s): K21.9 - Gastro-esophageal reflux disease without esophagitis Category: Medical Qualifiers: Esophagitis presence: esophagitis presence not specified Qualified Code(s): K21.9 - Gastro-esophageal reflux disease without esophagitis (3) Postprandial epigastric pain: Code(s): R10.13 - Epigastric pain Plan Long discussion and education about diet. Avoiding carbs and eating more protein. Following up with endocrinology. Message sent to provider for appointment. Patient was encouraged to lose weight and exercise. He will take sucralfate at bedtime and Nexium twice a day. Encouraged patient to avoid dietary triggers and late night snacking. Staying upright for minimum 3 hours after meals discussed with patient. Patient will follow-up in 6 weeks, sooner on as needed basis. He is agreeable to this plan and verbalizes understanding of instructions. He was given the opportunity to ask questions and all questions answered. Thank you for allowing me to participate in his care Medications: New esomeprazole magnesium (Nexium) 20 mg PO BID 60 caps 4RF Changed From sucralfate 1 g PO BID 60 tabs 3RF To sucralfate 1 g PO BEDTIME 30 tabs 3RF Coding Level of Care Code Est Pt Level 4 (02060) Complex EM visit Add On G2211 Diagnoses Cyclical vomiting R11.15 Gastroesophageal reflux disease, unspecified whether esophagitis present K21.9 Esophagitis presence: esophagitis presence not specified Postprandial epigastric pain R10.13 Time Spent (min) 40 Comment 25 minutes spent with patient and additional 15 minutes spent reviewing his records
[2024-10-27 16:00] VITALS: BP 156/80; PULSE 86; O2SAT 99; BMI 33.2
--- OUTSIDE RECORDS SUMMARY | 2024-10-27 16:40 | XMS_ITS | Encounter Summary ---
Author Organization [employer] Address [address] [facility] 7t [place] [address] Care Team Providers Care On Site Nurse Name Role Phone [facility] Primary Care Provider [phone] Amari David RN Unavailable [phone] Rafaela Tovar Unavailable Reason for Visit * Reason Onset Date Comments HDF 05/21/2022 Encounter Details Date Type Department Care Team (Late st Contact Info) Description 05/21/2022 Telephone [facility] MEDICINE [address] [place] [address] [facility], [facility] [address] [place] [address] [facility] Social History Tobacco Use Types Packs/Day Years [...] HDF F/U (no symptoms) Patient hospitalized at [facility]. Patient was admitted on 05/20/2022 and discharged on 05/21/2022. The patient was diagnosed with Virus. Patient advised will forward to [facility] Clinical Coordinators for follow up and appointment scheduling. Please contact Pt at [phone] documented in this encounter Plan of Treatment Not on file documented as of this encounter Visit Diagnoses Not on filedocumented in this encounter Care Teams On Site Nurse Relationship Specialty Start Date End Date Leanne Alcazar FNP [address] [place] [address] PCP - General Family Medicine 12/13/21 Amari David, MITCH [address] [place] [address] Registered Nurse Family Medicine 10/07/24 Rafaela Tovar 10/07/24 documented as of this encounter
--- OUTSIDE RECORDS SUMMARY | 2024-10-27 16:40 | XMS_ITS | Encounter Summary ---
Author Organization [employer] Address [address] [facility] [address] [place] [address] Care Team Providers Care Middleware Developer Name Role Phone [place] [facility] Primary Care Provider [phone] Amari David RN Unavailable [phone] Rafaela Tovar Unavailable Reason for Visit * Reason Comments [facility] Encounter Details Date Type Department Care Team (Latest Contact Info) Description 10/22/2024 Patient Outreach [facility] MEDICINE [address] [place] [address] [place], [facility] [address] [place] [address] Care Coordination (C3 -ANTONIO Tovar telephone call outreach) Social History Tobacco Use Types Packs/Day Years [...] AM EDT documented as of this encounter Progress Notes * Rafaela Tovar - 10/22/2024 8:21 AM EDT CHW Rafaela Tovar, placed outbound call to patient in regards to offer services. CHW introducing herself from [facility] CM Department with CHW's name, department and direct contact number requesting call back. Will re-attempt to contact within 5 days. and address not confirmed. documented in this encounter Plan of Treatment Not on file documented as of this encounter Visit Diagnoses Not on filedocumented in this encounter Additional Health Concerns Assessment Noted Time PHQ-9 Depression Total Score: 0 01/27/20 24 3:31 PM EST documented as of this encounter Care Teams Middleware Developer Relationship Specialty Start Date End Date Leanne Alcazar FNP [address] [place] [address] PCP - General Family Medicine 12/13/21 Amari David RN [address] [place] [address] [place] [id number] Registered Nurse Family Medicine 10/07/24 Rafaela Tovar 10/07/24 documented as of this encounter
--- OUTSIDE RECORDS SUMMARY | 2024-10-27 16:40 | XMS_ITS | Encounter Summary ---
Author Organization [facility] Address [address] [place] [address] Phone Care Team Providers Care Peoplesoft Hcm Developer Name Role Phone Tete Sutherland MD Primary Care Provider Encounter Details Date Type Department Care Team (Late st Contact Info) Description 10/22/2012 Documentation [facility] [place] [address] [place] [address] Family Medicine, Physician [address] [place], [place] [phone] Social History Tobacco Use Types Packs/Day Years [...] on filedocumented in this encounter Care Teams Peoplesoft Hcm Developer Relationship Specialty Start Date End Date Tete Sutherland MD [address] [place] [address] [place] [address] PCP - General 10/12/16 08/27/22 documented as of this encounter
--- OUTSIDE RECORDS SUMMARY | 2024-10-27 16:40 | XMS_ITS | Encounter Summary ---
Author Organization [facility] Address [address] [place] [address] Phone Care Team Providers Care Postulant Name Role Phone Tete Sutherland MD Primary Care Provider Encounter Details Date Type Department Care Team (Late st Contact Info) Description 08/05/2009 Documentation [facility] [place] Family Medicine [address] [place] [address] Family Medicine, Physician [address] [place], [place] [phone] Social History Tobacco Use Types Packs/Day Years [...] on filedocumented in this encounter Care Teams Postulant Relationship Specialty Start Date End Date Tete Sutherland MD [address] [place] [address] [place] Narayan [address] PCP - General 10/12/16 08/27/22 documented as of this encounter
--- OUTSIDE RECORDS SUMMARY | 2024-10-27 16:40 | XMS_ITS | Encounter Summary ---
Author Organization [facility] Address [address] [place] [address] Phone Care Team Providers Care Manager Clinic Name Role Phone Tete Sutherland MD Primary Care Provider Encounter Details Date Type Department Care Team (Late st Contact Info) Description 11/13/2012 Documentation [facility] [place] Family Medicine [address] [place] [address] Family Medicine, Physician [address] [place], [place] [phone] Social History Tobacco Use Types Packs/Day Years [...] filedocumented in this encounter Care Teams Manager Clinic Relationship Specialty Start Date End Date Tete Sutherland MD [address] [place] [address] [place] [address] PCP - General 10/12/16 08/27/22 documented as of this encounter
--- OUTSIDE RECORDS SUMMARY | 2024-10-27 16:40 | XMS_ITS | Encounter Summary ---
Author Organization [facility] Address [address] [place] [address] Phone Care Team Providers Care Software Deployment Engineer Name Role Phone Tete Sutherland MD Primary Care Provider Encounter Details Date Type Department Care Team (Late st Contact Info) Description 10/18/2016 Conversion Encounter [facility] [address] [place] [address] Social History Tobacco Use Types Packs/Day Years [...] on filedocumented in this encounter Care Teams Software Deployment Engineer Relationship Specialty Start Date End Date Tete Sutherland MD [address] [place] [address] PCP - General 10/12/16 08/27/22 documented as of this encounter
--- OUTSIDE RECORDS SUMMARY | 2024-10-27 16:40 | XMS_ITS | Clinical Summary ---
Author Organization [facility] Address [address] [place] [address] Phone Care Team Providers Care Absorber Operator Name Role Phone Unavailable Primary Care Provider [...] 96 02/17/2010 12:00 AM EST Temperature 36.9 C (98.4 F) 06/18/2012 12:00 AM EDT Respiratory Rate - - Oxygen Saturation - [...] 12/25/2015 12/24/2005, 10/26/1998, 01/21/1995, Additional history exists COVID-19 Vaccine (2023-) 11/03/2023 Influenza Vaccines (#1) 2024 12/05/19 14, 11/28/2012, 04/15/2012, Additional history exists HIB Vaccines Completed 07/31/1994, 02/02, 1993 IPV [...]
--- OUTSIDE RECORDS SUMMARY | 2024-10-27 16:40 | XMS_ITS | Encounter Summary ---
Author Organization [facility] Address [address] [place] [address] Phone Care Team Providers Care Wrapper Layer And Examiner Soft Work Name Role Phone Tete Sutherland MD Primary Care Provider Encounter Details Date Type Department Care Team (Late st Contact Info) Description 02/04/2014 Documentation [facility] [place] [address] [place] [address] Family Medicine, Physician [address] [place], [place] [phone] Social History Tobacco Use Types Packs/Day Years [...] on filedocumented in this encounter Care Teams Wrapper Layer And Examiner Soft Work Relationship Specialty Start Date End Date Tete Sutherland MD [address] [place] [address] [place] [address] PCP - General 10/12/16 08/27/22 documented as of this encounter
--- OUTSIDE RECORDS SUMMARY | 2024-10-27 16:40 | XMS_ITS | Encounter Summary ---
Author Organization [facility] Address [address] [place] [address] Phone Care Team Providers Care Cardiology Technologist Name Role Phone Tete Sutherland MD Primary Care Provider Encounter Details Date Type Department Care Team (Late st Contact Info) Description 10/21/2012 Documentation [facility] [place] Family Medicine [address] [place] [address] Family Medicine, Physician [address] [place], [place] [phone] Social History Tobacco Use Types Packs/Day Years [...] on filedocumented in this encounter Care Teams Cardiology Technologist Relationship Specialty Start Date End Date Tete Sutherland MD [address] [place] [address] [place] [address] PCP - General 10/12/16 08/27/22 documented as of this encounter
--- OUTSIDE RECORDS SUMMARY | 2024-10-27 16:40 | XMS_ITS | Encounter Summary ---
Author Organization [employer] Address [address] [facility] 7t [place] [address] Care Team Providers Care Commercial Agent Name Role Phone [facility] Primary Care Provider [phone] Amari David RN Unavailable [phone] Rafaela Tovar Unavailable Reason for Visit * Reason Onset Date Comments Nurse Triage 08/15/2023 Encounter Details Date Type Department Care Team (Late st Contact Info) Description 08/15/2023 Telephone [facility] MEDICINE [address] [place], [place] [phone] [facility] [address] [place] [address] Nurse Triage Social History Tobacco Use Types [...] accepted this outcome Please contact pt at [phone] documented in this encounter Plan of Treatment Not on file documented as of this encounter Visit Diagnoses Not on filedocumented in this encounter Additional Health Concerns Assessment Noted Time PHQ-9 Depression Total Score: 24 023 10:42 AM EST documented as of this encounter Care Teams Commercial Agent Relationship Specialty Start Date End Date Leanne Alcazar FNP [address] [place] [address] PCP - General Family Medicine 12/13/21 Amari David, RN [address] [place] [address] Registered Nurse Family Medicine 10/07/24 Rafaela Tovar 10/07/24 documented as of this encounter
--- OUTSIDE RECORDS SUMMARY | 2024-10-27 16:40 | XMS_ITS ---
Author Organization [employer] Address [address] [place] [address] 7[address] [place] [address] Care Team Providers Care Pipe Fitter Apprentice Name Role Phone Leanne Alcazar LAND INSPECTOR Primary Care Provider [phone] Amari David RN Unavailable [phone] Rafaela Tovar Unavailable CHW Complex Status:Outreach In Progress (Enrolling) Start date:10/07/2024 Enrollment reason:ADT Feed Overview ED- [place] [facility] [place]. Case Team Name Relationship Phone Rafaela Tovar(Responsible Staff) Continued Care and Services Coordination
--- OUTSIDE RECORDS SUMMARY | 2024-10-27 16:40 | XMS_ITS ---
Author Organization [employer] Address [address] [facility] 7t [place] [address] Care Team Providers Care Graphic Design Intern Name Role Phone Leanne Alcazar [facility] Primary Care Provider [phone] Amari David RN Unavailable [phone] Rafaela Tovar Unavailable CM Complex Status:Outreach In Progress (Enrolling) Start date:10/07/2024 Enrollment reason:ADT Feed Overview ED- Pt went to [facility] ED on 10/06/24. Case Team Name Relationship Phone Amari David RN(Responsible Staff) Registered N aditi [phone] Continued Care and Services Coordination
--- OUTSIDE RECORDS SUMMARY | 2024-10-27 16:40 | XMS_ITS | Clinical Summary ---
Author Organization [employer] Address [address] [facility] [address] [place] [address] Care Team Providers Care Lumber Straightener Name Role Phone Leanne Alcazar BAR HOST/HOSTESS Primary Care Provider [phone] Amari David RN Unavailable [phone] Rafaela Tovar Unavailable Allergies No known active allergies Medications * [...] 2 Active Blood Glucose Monitoring Suppl (FreeStyle [place] Lite) w/Device kit TEST BLOOD SUGAR ONE OR TWO TIMES DAILY DIRECTED 2 Active TRUEplus Lancets 33G miscIndications:T ype 2 diabetes mellitus with hyperglycemia, without long-term current use of insulin ([facility]) TEST BLOOD SUGAR 4 times daily 120 each 1 3 Active glucose blood test stripIndications: Type 2 diabetes mellitus with hyperglycemia, without long-term current use of insulin ([facility]) Use as directed to check blood sugar four times daily 100 each 12 3 Active Continuous Glucose Cartridge Belt Puncher (FreeStyle Ave [address] [place]) deviceIndications :Type 2 diabetes mellitus with hyperglycemia, without long-term current use of insulin ([facility]) Scan sensor every 8 hours 1 each 4 Active glucose 4 g chewable tabletIndications :Type 2 diabetes mellitus with hypoglycemia without coma, without long-term current use of insulin ([facility]) Chew 4 tablets (16 g) if needed [...] by mouth 2 times daily. 4 Active ondansetron (Zofran) 4 MG tabletIndications :Nausea TAKE 2 TABLETS BY MOUTH EVERY 8 HOURS NEEDED FOR NAUSEA AND VOMITING 30 tablet 5 Active insulin pen needle (Sure Comfort Pen Rulo) 31G x 5 mm miscIndications:T ype 2 diabetes mellitus with hyperglycemia, without long-term current use of insulin ([facility]) USE DAILY DIRECTED 100 each 11 5 Active amLODIPine (Norvasc) 10 MG tablet Take 1 tablet (10 mg) by mouth Once per day. 90 tablet 5 Active escitalopram (Lexapro) 10 MG tabletIndications :Generalized anxiety disorder TAKE 1 TABLET BY MOUTH EVERY DAY 30 tablet 2 5 Active carvedilol (Coreg) 25 MG tablet TAKE 1 TABLET BY MOUTH TWICE A DAY 180 tablet 5 Active pantoprazole (ProtoNix) 40 MG EC tabletIndications :Epigastric pain TAKE 1 TABLET BY MOUTH EVERY MORNING BEFORE BREAKFAST DO NOT BREAK, CRUSH, DISSOLVE OR CHEW 90 tablet 5 Active Continuous Glucose Sensor (FreeStyle Ave 2 Sensor) miscIndications:T ype 2 diabetes mellitus with hyperglycemia, without long-term current use of insulin ([facility]) USE DIRECTED, CHANGE EVERY 14 DAYS 2 each 3 5 Active Jardiance 10 MG TAKE 1 TABLET BY MOUTH EVERY DAY 30 tablet 11 5 Active Active Problems Problem Noted Date Diagnosed Date Nausea 03/02/2024 Epigastric pain 03/02/2024 Assessment & Plan (03/02/2024 2:18 PM EST): I went up on his pantoprazole to 40mg daily Zofrna PRN Patient has upcoming GI appointment on 03/16/23 I printed letter and advise not to miss his appointment Acute kidney injury superimposed on CKD ([facility] ) 03/02/2024 Assessment & Plan (03/02/2024 2:17 PM EST): Drink plenty of water Avoid nephrotoxic medication Work on glucose and blood pressure control 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 with hotel administrative assistant 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 2 diabetes mellitus ([facility]) 12/02/2023 Assessment & Plan (03/02/2024 2:16 PM EST): C/w current medications, diabetic diet was advised, f/u with PCP Assessment & Plan (01/27/2024 4:34 PM EST): Plan to f/u with nephrology Will obtain BMP today to monitor renal function Encouraged adequate hydration and avoidance of NSAIDs Primary hypertension 06/11/2022 Overview (02/05/2023): Olmesartan 5mg daily - Aerobic exercise to [...] Assessment & Plan (02/05/2023 9:25 PM EST): BP with mild elevation in office. Reports home readings well controlled Inconsistently taking olmesartan 5mg Will continue to monitor Assessment & Plan (06/11/2022 1:11 PM EDT): BP elevated in office. Patient states he did not take medication today. Reports home BP well controlled. Will continue to monitor ADHD 03/12/2022 Healthcare maintenance 03/12/2022 Overview (03/12/2022): C-Scope: Routine age 43 PSA: Routine age 43 HCV Screen: Negative 12/2021 HIV Screen: Negative 12/2021 STI Screening: RPR negative 12/2021 Vision Exam: 12/2021, [place] [facility]: Discuss at follow up Immunizations: Needs PCV20, covid booster at follow [...] 08/2022 Risk 0 Eye Exam: Referred to [facility]; followed by outside retinal specialist [...] Component Value Date HGBA1C 12.4 (A) 01/28/2023 Pt not taking medications STOP Trulicity (side effects) START lantus-starting 10 units at bedtime with instructions to increase by 2 units every 3 days until morning FBG < 130 Referral to [facility] DM educator Assessment & Plan (11/18/2022 12:46 PM EDT): Lab Results Component Value Date HGBA1C 9.6 (A) 10/24/2022 RESTART trulicity at lower dose 3mg which patient previously tolerated well Pt will contact HC if difficulty tolerating dose Assessment & Plan (08/05/2022 11:29 AM EDT): Lab Results Component Value Date HGBA1C 7.9 (H) 07/26/2022 Significant improvement in A1c INCREASE trulicity to 4.5mg subcutaneous weekly Assessment & Plan (06/11/2022 1:07 PM EDT): Lab Results Component Value Date HGBA1C 9.6 (A) 03/06/2022 A1c improving from >14% Continue current regimen Pt may self-increase metformin to 1000mg b.i.d as tolerated with GI sx Assessment & Plan (03/12/2022 6:07 AM EST): - Increase trulicity to 3mg subcutaneous weekly - Start metformin XR 500mg once daily BMP: 12/2021 WNL, order repeat at f/u Microalbumin: 12/2021, elevated. Order repeat at f/u Foot Exam: Complete at follow up Eye Exam: 12/2021, completed in [place] Lipid panel: 12/2021 WNL, order repeat at [...] <180 Generalized anxiety disorder 12/15/2021 Overview (02/05/2023): Hx of anxiety/depression. Previous therapy was not helpful Assessment & Plan (02/05/2023 9:24 PM EST): Pt declines maintenance pharmacotherapy or referral to [facility] trial PRN hydroxyzine for acute anxiety. Reviewed administration, risks, side effects Contact HC if sx worsen or experiencing thoughts of SI or self harm. Pt has [facility] crisis contact information Assessment & Plan (11/18/2022 12:46 PM EDT): STOP sertraline due to s/e Declines N referral Contact HC if sx worsen or experiencing thoughts of SI or self harm. Pt has [facility] crisis contact information Assessment & Plan (08/05/2022 11:31 AM EDT): INCREASE sertraline to 50mg daily Declines N referral Denies SI or thoughts of self harm Assessment & Plan (06/11/2022 1:08 PM EDT): START sertraline 25mg once daily. Reviewed administration, risks, side effects Declines N referral at this time Contact HC if sx worsen or experiencing thoughts of suicide or self harm Resolved Problems Problem Noted Date Diagnosed Date Resolved Date KARUNA (acute kidney injury) 11/15/2023 Encounters Date Type Department Care Team Description 10/22/2024 Patient Outreach [address] [address] ArdenLeanne [facility] Care Coordination ([facility] Rafaela Tovar telephone call outreach) 10/15/2024 Patient Outreach [address] [address] ArdenLeanne [facility] Care Coordination ([facility] -[facility] Rafaela Tovar telephone call outreach) 10/07/2024 Patient Outreach [address] [address] Leanne Alcazar FNP Care Coordination ([facility]3 [facility] Rafaela Tovar telephone call outreach) 10/07/2024 Patient Outreach [facility] [place] [address] Leanne Alcazar FNP Care Coordination ([facility] Rafaela Tovar chart review) 10/07/2024 Patient Outreach [facility] [place] [address] Leanne Alcazar FNP Care Coordination ([facility]- chart review) 10/07/2024 Patient Outreach [facility] [place] [address] Leanne Alcazar FNP 09/15/2024 Refill [facility] [address] [place] [address] Yamel Monroy FNP 09/03/[address] [address] Leanne Alcazar FNP Type 2 diabetes mellitus with hyperglycemia, without long-term current use of insulin ([facility]) 08/25/2024 Refill [facility] [address] [place] [address] Leanne Alcazar FNP Epigastric pain 08/25/[address] [address] Leanne Alcazar FNP CGM PA sensors 08/05/[address] [address] Leanne Alcazar FNP No Show 08/04/[address] [address] Leanne Alcazar FNP chart prep 07/29/2024 Orders Only GENERIC EXTERNAL DATA DEPARTMENT Provider, Generic External Data 07/28/[address] [address] Leanne Alcazar FNP from Last 3 Months Immunizations Immunization Administration Dates Next Due DTP [...] MMR 11/10/2013,10/26/1998,07/31/1994 Meningococcal MCV4P [id number] 01/15/2007 Novel [id number], all formulations 01/17/2009 Pfizer Covid-19 Vaccine 12+ [...] 80 03/02/2024 1:27 PM EST Temperature 36.4 C (97.5 F) 03/02/2024 1:27 PM EST Respiratory Rate 20 03/02/2024 1:27 PM EST Oxygen Saturation 99% 01/27/2024 3:29 PM EST Inhaled Oxygen Concentration - - Weight 92.5 kg (204 lb) 03/02/2024 1:27 PM EST Height 170.2 cm (5' 7 ) 03/02/2024 1:27 PM EST Body Mass Index 31.95 03/02/2024 1:27 PM EST Plan of Treatment Health Maintenance Due Date Last Done Comments Disability Screening 1993 Alcohol/Substance Use Screening 2005 Family Planning (PISQ) 2008 Pneumococcal Vaccine: Pediatrics (0 to 5 Years) and At-Risk Patients (6 to 49) Years (2 of 2 - PCV) 01/17/2010 01/17/2009 COVID-19 Vaccine ( season) 2023 01/28/2023, 02/08/2021, 07/08/2020, Additional history exists Eye Exam 12/03/2023 12/02/2021 Diabetes: Foot Exam 09/05/2024 09/06/2023, 09/06/2023, 07/26/2022, Additional history exists Diabetes: Hemoglobin A1C 10/29/2024 025, 03/16/2024, 09/06/2023, Additional history exists Influenza Vaccine (#1) 2024 , 01/28/2023, 12/13/2021, Additional history exists SDOH Screening 12/01/2024 12/02/2023 [...] Completed 12/19/2021, 03/15/2014, 12/10/2013, Additional history exists Hepatitis A Vaccines Aged Out No long er eligible based on patient's age to complete this topic Meningococcal B Vaccine Aged Out No l onger eligible based on patient's age to complete this topic RSV under 20 months Aged Out No longe r eligible based on patient's age to complete this topic Rotavirus Vaccines Aged Out No longer eligible based on patient's age to complete this topic Procedures Procedure Name Priority Date/Time Associated Diagnosis Comments PROTEIN, TOTAL AND PROTEIN ELECTROPHORESIS Routine 07/29/2024 3:12 PM EDT CBC Routine 07/29/2024 3:12 PM EDT HEMOGLOBIN A1C Routine 07/29/2024 3:12 PM EDT LIPID PANEL, STANDARD Routine 06/25/2024 2:45 PM EDT ZZZ HISTORICAL HEPATITIS C AB W/REFL TO HCV RNA, QN, PCR Routine 12/13/2021 11:51 AM EDT HIV 1/2 ANTIGEN/ANTIBODY, FOURTH GENERATION W/RFL Routine 12/13/2021 11:51 AM EDT from Last 3 Months or Most Recently Relevant to Health Maintenance Results * (ABNORMAL) CBC (07/29/2024 3:12 PM EDT) White Blood Count 8.2 4.8 - 10.8 X10*3/uL [facility] Red Blood Count 3.80(L) 4.60 - 5.80 X10*6/uL [facility] Hemoglobin 11.4(L) 14.0 - 18.0 g/dl [facility] Hematocrit 31.9(L) 42.0 - 52.0 % [facility] Mean Corpuscular Volume 83.9 80.0 - 98.0 fL [facility] Mean Corpuscular Hemoglobin 30.0 27.0 - 33.0 pg [facility] Mean Corpuscular HGB Conc 35.7 31.0 - 36.0 g/dl [facility] Red Cell Distribution Width 12.0 11.0 - 16.0 % [facility] Platelet Count 261 160 - 400 X10*3/uL [facility] Mean Platelet Volume 10.6 9.4 - 12.4 fL [facility] NRBC Pct Auto 0.0 0.0 - 0.2 /100WBC [facility] NRBC Abs Auto 0.000 0.0 - 0.012 X10*3/uL [facility] 07/29/2024 3:12 PM EDT 07/29/2024 3:12 PM EDT us Generic External Data Provider LAB BLOOD ORDERAB LES Final Result [facility] [address] [place] [phone] [phone] * (ABNORMAL) Protein, Total and Protein??Electrophoresis (07/29/2024 3:12 PM EDT) Prot Elec - Total Protein 6.2 6.1 - 8.1 g/dL [facility] Prot Elec - Albumin 3.8 3.8 - 4.8 g/dL [facility] Prot Elec - Alpha1 0.2 0.2 - 0.3 g/dL [facility] Prot Elec - Alpha2 0.8 0.5 - 0.9 g/dL [facility] Prot Elec - Beta 1 0.4 0.4 - 0.6 g/dL [facility] Prot Elec - Beta 2 0.4 0.2 - 0.5 g/dL [facility] Prot Elec - Gamma 0.6(A) 0.8 - 1.7 g/dL [facility] PES - Abn Protein Band 1 TNP [facility] PES-Abn Protein Band [facility] P[facility]-Ab[facility] Protein Band 3 [facility] Prot Elec - Interpretation SEE NOTE [facility] Comment:Consistent with hypo gammaglobulinemia. Serum free lightchains or urine immunofixation should be considered ifplasma cell dyscrasias are a possible clinicaldiagnosis.THIS TEST WAS PERFORMED AT:[id number] [place] [id number] BAEZ MD 07/29/2024 3:12 PM EDT 07/29/2024 3:12 PM EDT us Generic External Data Provider LAB BLOOD ORDERAB LES Final Result Performing Organization Address [facility] Co de Phone Number [facility] [address] [place] [phone] * (ABNORMAL) Hemoglobin A1c (07/29/2024 3:12 PM EDT) Hemoglobin A1c 8.8(H) <6.0 % [facility] Comment:Hemoglobin A1C Refer ence Range Adults: 4.8 - 6.0 % Non diabetic: < 6.0 % Goal: < 7.0 %Additional Action Suggested: > 8.0 %Note: Hemoglobin A1c results are invalid for patients with abnormal amounts of HbF. Blood transfusions may impact the HbA1c concentration in the patient sample. Estimated Average Glucose 206 mg/dL [facility] Comment:eAG = Estimated ave rage glucose which is %A1C expressed asaverage glucose, using the formula of the H2B-JwtogymFnocjse Glucose study (ADAG), Diabetes Care, Vol.31,#8,Oct. 2007 07/29/2024 3:12 PM EDT 07/29/2024 3:12 PM EDT us Generic External Data Provider LAB BLOOD ORDERAB LES Final Result Performing Organization Address [place]/[facility] Co de Phone Number [facility] [address] [place] [phone] * (ABNORMAL) Lipid Panel, Standard (06/25/2024 2:45 PM EDT) Triglycerides 167(H) <150 mg/dL [facility] Comment:Desirable Triglyceri de: less than 150 mg/dLBorderline High Triglyceride 150-199 mg/dLHigh Triglyceride: 200-499 mg/dLVery High Triglyceride: greater than or equal to 5OO mg/dL Cholesterol 139 <200 mg/dL [facility] Comment:Desirable Cholestero l: less than 200 mg/dLBorderline High Cholesterol: 200-239 mg/dLHigh Cholesterol: greater than 239 mg/dL LDL Cholesterol Calculated 64 <100 mg/dL [facility] Comment:Desirable LDL: less than 100 mg/dLNear Optimal/Above Optimal LDL: 110- 129 mg/dLBorderline High LDL: 130-159 mg/dLHigh LDL: 160-189 mg/dLVery High LDL: greater than or equal to 190 mg/dL HDL Cholesterol 42 >40 mg/dL [facility] Comment:Desirable HDL: great er than 40 mg/dL Note: This HDL assay may give artificially low results in patients with liver disease. 06/25/2024 2:45 PM EDT 06/25/2024 2:45 PM EDT Generic External Data Provider LAB BLOOD ORDERAB LES Final Result Performing Organization Address [facility] Co de Phone Number [facility] [address] [place] [phone] * HEPATITIS C AB W/REFL TO HCV RNA, QN, PCR (12/13/2021 11:51 AM EDT) HEPATITIS C ANTIBODY NON-REACTI VE NON-REACT EULOGIO [facility] INDEX 0.04 <1.00 [facility] Comment: HCV antibody was non-reactive. There is no laboratory evidence of HCV infection. In most cases, no further action is required. However, if recent HCV exposure is suspected, a test for HCV RNA (test code 27688) is suggested. For additional information please refer to http://education.[employer].Sleepy's/faq/VCM22y7 (This link is being provided for informational/ educational purposes only.) 12/13/2021 11:5 1 AM EDT [facility] BAR HOST/HOSTESS HISTORICAL/NON ORDERABLE LABS Final Result Performing Organization Address City/[facility] Co de Phone Number [facility] * HIV 1/2 ANTIGEN/ANTIBODY,FOURTH GENERATION W/RFL (12/13/2021 11:51 AM EDT) HIV-1/2 ANTIGEN AND ANTIBODIES, 4TH GENERATION W/ REFLEX NON-REACT EULOGIO NON-REACT EULOGIO [facility] Comment: HIV-1 antigen and HIV-1/HIV-2 antibodies were not detected. There is no laboratory evidence of HIV infection. PLEASE NOTE: This information has been disclosed to you from records whose confidentiality may be protected by state law. If your state requires such protection, then the state law prohibits you from making any further disclosure of the information without the specific written consent of the person to whom it pertains, or as otherwise permitted by law. A general authorization for the release of medical or other information is NOT sufficient for this purpose. For additional information please refer to http://education.[employer]/faq/PPH354 (This link is being provided for informational/ educational purposes only.) The performance of this assay has not been clinically validated in patients less than 2 years old. 12/13/2021 11:5 1 AM EDT [facility] BAR HOST/HOSTESS LAB BLOOD ORDERABLES Final Re sult [facility] from Last 3 Months or Most Recently Relevant to Health Maintenance Insurance * Guarantor: Tristen Boatneg Account Type Relation to Patient Date of Phone Billing Address Personal/Family Self [address] [place] [address] [facility] * Guarantor: Tristen Boateng Account Type Relation to Patient Date of Phone Billing Address Personal/Family Self [address] [place] [address] * Guarantor: Tristen Boateng Account Type Relation to Patient Date of Phone Billing Address Personal/Family Self [address] [place] [address] * Guarantor: Tristen Boateng Account Type Relation to Patient Date of Phone Billing Address Personal/Family Self [address] [facility] [address] [place] [address] Care Teams Lumber Straightener Relationship Specialty Start Date End Date Leanne Alcazar BAR HOST/HOSTESS [address] [place] [address] PCP - General Family Medicine 12/13/21 Amari David, RN [address] [place] [address] Registered Nurse Family Medicine 10/07/24 Rafaela Tovar 10/07/24
--- OUTSIDE RECORDS SUMMARY | 2024-10-27 16:40 | XMS_ITS | Encounter Summary ---
Author Organization [facility] Address [address] [place] [address] Phone Care Team Providers Care Awning Assembler Name Role Phone Tete Sutherland MD Primary Care Provider [phone] Encounter Details Date Type Department Care Team (Late st Contact Info) Description 04/08/2014 Documentation [facility] [place] [facility] Family Medicine [address] [place] [address] Family Medicine, Physician [address] [place], [place] [phone] Social History Tobacco Use Types Packs/Day Years [...] on filedocumented in this encounter Care Teams Awning Assembler Relationship Specialty Start Date End Date Tete Sutherland MD [address] [place] [address] [place] [address] PCP - General 10/12/16 08/27/22 documented as of this encounter
--- OUTSIDE RECORDS SUMMARY | 2024-10-27 16:40 | XMS_ITS | Encounter Summary ---
Author Organization [facility] Address [address] [place] [phone] Phone Care Team Providers Care Managing Principal Name Role Phone Tete Sutherland MD Primary Care Provider Encounter Details Date Type Department Care Team (Late st Contact Info) Description 01/29/2012 Documentation [facility] Family Medicine [address] [place] [address] Family Medicine, Physician [address] [place], [place] [phone] Social History Tobacco Use Types Packs/Day Years [...] on filedocumented in this encounter Care Teams Managing Principal Relationship Specialty Start Date End Date Tete Sutherland MD [address] [place] [address] [place] Narayan [address] PCP - General 10/12/16 08/27/22 documented as of this encounter
--- OUTSIDE RECORDS SUMMARY | 2024-10-27 16:40 | XMS_ITS | Encounter Summary ---
Author Organization [facility] Address [address] [place] [address] Phone Care Team Providers Care Semiconductor Packages Leak Tester Name Role Phone Tete Sutherland MD Primary Care Provider [phone] Encounter Details Date Type Department Care Team (Late st Contact Info) Description 07/21/2012 [place]ation [facility] [place] [address] [place] [address] Family Medicine, Physician [address] [place], [place] [phone] Social History Tobacco Use Types Packs/Day Years [...] on filedocumented in this encounter Care Teams Semiconductor Packages Leak Tester Relationship Specialty Start Date End Date Tete Sutherland MD [address] [place] [address] [place] [address] PCP - General 10/12/16 08/27/22 documented as of this encounter
--- OUTSIDE RECORDS SUMMARY | 2024-10-27 16:40 | XMS_ITS | Encounter Summary ---
Author Organization [facility] Address [address] [place] [address] Phone Care Team Providers Care Flame Channeler Name Role Phone Tete Sutherland MD Primary Care Provider Encounter Details Date Type Department Care Team (Late st Contact Info) Description 05/26/2014 Documentation [facility] [place] [address] [place] [address] Family Medicine, Physician [address] [place], [place] [phone] Social History Tobacco Use Types Packs/Day Years [...] on filedocumented in this encounter Care Teams Flame Channeler Relationship Specialty Start Date End Date Tete Sutherland MD [address] [place] [address] [place] [address] PCP - General 10/12/16 08/27/22 documented as of this encounter
== END 2024-10-27 16:32 | disposition home or self-care (01) ==
LOC: HO.HGI 15:58
PROVIDERS: PCP Registered Nurse; Visit Provider Nurse Practitioner Family
DX: R11.15 Cyclical vomiting syndrome unrelated to migraine (principal); K21.9 Gastro-esophageal reflux disease without esophagitis; R10.13 Epigastric pain
CPT/HCPCS: 99214

== ENCOUNTER → 2024-10-27 15:57 | Outpatient (BNVA) | payer MEDICAID, SELFPAY | PROVIDERS: PCP Registered Nurse; Visit Provider Nurse Practitioner Family | DX: R11.15 Cyclical vomiting syndrome unrelated to migraine (principal); K21.9 Gastro-esophageal reflux disease without esophagitis; R10.13 Epigastric pain | CPT/HCPCS: 99212 ==

== ENCOUNTER 2024-11-12 16:08 | Outpatient (AMB) | payer MEDICAID, SELFPAY ==
[2024-11-12 16:12] VITALS: BP 150/70; PULSE 78; O2SAT 99; BMI 35.7
--- NOTE | 2024-11-12 16:12 | HO.NEPHOV ---
Vital Signs 11/12/24 16:12 Height 5 ft 7 in Weight 228 lb BMI 35.7 BP 150/70 H Blood Pressure Location Lt brachial Position Sitting Pulse 78 Pulse Source Pulse Oximeter Pulse Oximetry (%) 99 Oxygen Delivery Method Room Air Intake Visit Reasons: FU-Conf Director Of Vocational Guidance Required: No Accompanied by: Self / Same As Patient Allergies No Known Allergies (No Known Allergies*) Allergy (Verified 11/12/24 16:13) Medication List - Last Reconciled 11/12/24 by Royce Perry MD amlodipine (Norvasc) 10 mg PO DAILY carvedilol 25 mg PO BID empagliflozin (Jardiance) 10 mg PO DAILY escitalopram oxalate 10 mg PO DAILY esomeprazole magnesium (Nexium) 20 mg PO BID famotidine 20 mg PO BEDTIME flash glucose sensor (FreeStyle Ave 2 Sensor kit) As directed insulin glargine (Lantus Solostar U-100 Insulin) 10 units subcut BEDTIME lorazepam 0.5 mg PO BID PRN losartan 100 mg PO DAILY pen needle, diabetic As directed sucralfate 1 g PO BEDTIME HPI Comments Details: 28 y/o male here for new patient visit referred by PCP for KARUNA medical history of primary HTN, DMII (diagnosed as a teenager, uncontrolled until last year or two per pt), obesity, anxiety. former daily cigar smoker, quit 1 year ago. Quit drinking alcohol 1 year ago (~1-2 beers daily prior to that). Daily marijuana smoker. 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 He is not sure about diabetic retinopathy but does see an eye doctor. Creatinine: 10/2022 0.85 08/14/23 1.40 10/29/23 1.60 10/30/23 1.37 10/31/[address] abd/pelvis- unremarkable renal findings. *of note, pt also had protein and blood in urine on UA from May 2022 pt was hospitalized on 10/31/23 at [facility] with uncontrolled HTN and chest pain, ACS eval was negative. KARUNA, olmesartan was held. currently prescribed amlodipine 10mg daily and carvedilol 6.25mg BID high blood pressure had been improving per pt, was in 180s for some time- notes panic attacks can often worsen his blood pressures lost 100lbs over about 5 years, gained a lot of it back in last year or so. family history: sister passed from lupus 2 years ago. Other siblings are healthy he thinks. father has diabetes and high blood pressure. mother has prediabetes. pt's son kowasaki disease when he was born NSAIDs are rare but he does take them on occasion take for headaches. does note constant pressure on his chest, reports this has improved since hospital visit but mild version is persisting no dyspnea no abdominal pain no pain with urination swelling in his legs- compression socks are helpful - pt reports since starting amlodipine 03/17/2024. Tristen claims he is anxious. His blood pressure has always stayed elevated. He states that the only time it comes down is when he smokes marijuana. 03/31/2024. He forgot to take his medications today. Underwent 24 hour ambulatory blood pressure more 08/13/2024. From renal standpoint is doing very well. No specific complaints. No nausea or vomiting. Seems compliant with his medications 11/13/24 The patient is a 29-year-old male here for follow up for CKD and HTN He had abdominal pain and admitted to [facility] Pain was probably an adverse reaction to Jardiance and after stopping the medication, pain resolved Hypertension is managed with home monitoring, with recent readings showing improvement from previous high levels. Peripheral edema occurs after prolonged standing, potentially linked to amlodipine, and leg elevation is used for relief. Medications: - Insulin for diabetes management - Amlodipine for hypertension Social History: - Works on feet for 8 hours a day, contributing to peripheral edema [facility] Medical History (Updated 11/05/24 @ 13:21 by Josselin Valladares [facility]) GERD (gastroesophageal reflux disease) Chronic kidney disease Cannabis hyperemesis syndrome concurrent with and due to cannabis dependence Cannabis use disorder Hypertension Anxiety Chest pain ADHD Generalized anxiety disorder Type 2 diabetes mellitus Hypertension Surgical History [place] teeth extracted History of appendectomy History of eye surgery (~06/2022) Family History Father HTN (hypertension) Mother Arthritis Sister Lupus (systemic lupus erythematosus) Social History Household Members: Spouse and Children Housing: Apartment Do you presently have visiting nurse or other home services: No Alcohol intake: former Patient Tobacco Use Status: Never used Tobacco e-Cigarette/Vaping Use: Never Used Second Hand Smoke Exposure: No (N/A) Substance Use Type: Marijuana Advance Directives Date on File: 11/01/23 service: No Physical Exam Vital Signs: Last Vital Signs Pulse 78 11/12/24 16:12 BP 150/70 H 11/12/24 16:12 Pulse Ox 99 11/12/24 16:12 Oxygen Delivery Method Room Air 11/12/24 16:12 BMI result Body Mass Index 35.7 Comfortable Neck supple no JVD. Lungs entry equal no rales. Heart S1-S2 heard no gallop or rub. Abdomen soft nontender. Neuro alert awake oriented. No asterixis. Extremities no edema. Results Reviewed Nephrology Results: Hgb, (14.0-18.0) 10.3 g/dl L 09/25/24 WBC, (4.8-10.8) 8.1 X10*3/uL 09/25/24 Plt Count, (160-400) 212 X10*3/uL 09/25/24 Sodium, (135-145) 137 mmol/L 09/24/24 Potassium, (3.3-5.1) 3.6 mmol/L 09/24/24 Chloride, (96-108) 104 mmol/L 09/24/24 Carbon Dioxide, (22-29) 21 mmol/L L 09/24/24 BUN, (9-16) 27 mg/dL H 09/24/24 Creatinine, (0.5-1.4) 1.57 mg/dL H 09/24/24 Calcium, (8.4-10.2) 8.5 mg/dL 09/24/24 Renal US 03/11/24 Assessment & Plan Assessment & Plan (1) Chronic kidney disease, stage 2 (mild): Code(s): N18.2 - Chronic kidney disease, stage 2 (mild) Category: Medical (2) Uncontrolled hypertension: Code(s): I10 - Essential (primary) hypertension Category: Medical (3) KARUNA (acute kidney injury): Code(s): N17.9 - Acute kidney failure, unspecified Category: Medical (4) Chronic kidney disease: Code(s): N18.9 - Chronic kidney disease, unspecified Category: Medical Qualifiers: Chronic kidney disease stage: stage 2 (GFR 60-89) Qualified Code(s): N18.2 - Chronic kidney disease, stage 2 (mild) Plan Pt with CKD stage 3a in setting of longstanding DMII, with recent increase in creatinine may have been related to olmesartan, though also question glomerulonephritis given hx of blood and protein in urine Renal ultrasonogram was unremarkable no evidence of obstruction. Once again he did not undergo the serological workup. I reordered again today.- check SPEP, C3/C4 to rule out other non-diabetic etiologies of CKD Anxiety is clearly playing a role in the resistant hypertension. avoid NSAIDs work on healthy diet and weight loss as well as regular exercise Low salt diet . 24 hour ambulatory blood pressure monitoring revealed ABP M stage I hypertension without nocturnal dipping. No white coat effect. There were several readings that were in the normal range. His blood pressure is suboptimal today because he did not did not take amlodipine and losartan Discussed importance of compliance. 08/13/2024. Renal function stable at baseline. He has stage III CKD. Baseline creatinine is around 1.45 mg/dL with a EGFR of 57 mL/minutes. Blood pressure is suboptimal. Given nephrotic range proteinuria I will maximize LATISHA inhibition. Increased losartan from 50 mg up to 100 mg a day. Encouraged him to stay on low-sodium diet. Goal is to maintain blood pressure less than 130/80 continue to avoid nephrotoxic agents including NSAIDs. Recheck renal panel prior to next visit 11/13/24 BP sub optimal Due to edema, i added LAsex 20 mg PO QD The edma may be due to Amlodipine 10 mg Renal function is close to baseline All serologies are negative Most likely has diabetic nephropathy Unable to to tolerate Jardiance Orders: Orders Basic Metabolic Panel 1 Day I10 - Essential (primary) hypertension Medications: New furosemide (Lasix) 20 mg PO DAILY 90 tabs 0RF Coding Level of Care Code Est Pt Level 4 (02089) Diagnoses Chronic kidney disease, stage 2 (mild) N18.2 Uncontrolled hypertension I10 KARUNA (acute kidney injury) N17.9 Stage 2 chronic kidney disease N18.2 Chronic kidney disease stage: stage 2 (GFR 60-89)
--- OUTSIDE RECORDS SUMMARY | 2024-11-12 18:54 | XMS_ITS | Encounter Summary ---
Author Organization [employer] Address [address] [facility] [address] [place] [address] Care Team Providers Care Quality Analyst/Technical Writer Name Role Phone [facility] Primary Care Provider [phone] Amari David RN Unavailable [phone] Rafaela Tovar Unavailable Reason for Visit * Reason Onset Date Comments HDF 05/21/2022 Encounter Details Date Type Department Care Team (Late st Contact Info) Description 05/21/[address] [facility]ICINE [address] [place] [address] [facility] [address] [place] [address] [facility] Social History Tobacco Use Types [...] HDF F/U (no symptoms) Patient hospitalized at [facility]. Patient was admitted on 05/20/2022 and discharged on 05/21/2022. The patient was diagnosed with Virus. Patient advised will forward to [facility] Clinical Coordinators for follow up and appointment scheduling. Please contact Pt at [phone] documented in this encounter Plan of Treatment Not on file documented as of this encounter Visit Diagnoses Not on filedocumented in this encounter Care Teams Quality Analyst/Technical Writer Relationship Specialty Start Date End Date Leanne Alcazar FNP [address] [place] [id number] PCP - General Family Medicine 12/13/21 Amari David, MITCH [address] [place] [address] Registered Nurse Family Medicine 10/07/24 Rafaela Tovar 10/07/24 documented as of this encounter
--- OUTSIDE RECORDS SUMMARY | 2024-11-12 18:54 | XMS_ITS | Encounter Summary ---
Author Organization [facility] Address [address] [place] [address] Phone Care Team Providers Care It Senior Software Engineer Java Name Role Phone Tete Sutherland MD Primary Care Provider Encounter Details Date Type Department Care Team (Late st Contact Info) Description 05/26/2014 Documentation [facility] [place] Family Medicine [address] [place] [address] Family Medicine, Physician [address] [place], [place] [id number] Social History Tobacco Use Types Packs/Day Years [...] filedocumented in this encounter Care Teams It Senior Software Engineer Java Relationship Specialty Start Date End Date Tete Sutherland MD [address] [place] [address] [place] [address] PCP - General 10/12/16 08/27/22 documented as of this encounter
--- OUTSIDE RECORDS SUMMARY | 2024-11-12 18:54 | XMS_ITS | Encounter Summary ---
Author Organization [facility] Address [address] [place] [address] Phone Care Team Providers Care Will Call Order Clerk Name Role Phone Tete Sutherland MD Primary Care Provider [phone] Encounter Details Date Type Department Care Team (Late st Contact Info) Description 07/21/2012 Documentation [facility] Family Medicine [address] [place] [address] Family Medicine, Physician [address] [place], [place] [phone] Social History Tobacco Use Types Packs/Day Years [...] on filedocumented in this encounter Care Teams Will Call Order Clerk Relationship Specialty Start Date End Date Tete Sutherland MD [address] [place] [address] [place] [id number] PCP - General 10/12/16 08/27/22 documented as of this encounter
--- OUTSIDE RECORDS SUMMARY | 2024-11-12 18:54 | XMS_ITS ---
Author Organization [employer] Address [address] [place] [address] [address] [place] [address] Care Team Providers Care Copper Etcher Name Role Phone Leanne Alcazar SIGNALS OFFICER Primary Care Provider [phone] Amari David RN Unavailable [phone] Rafaela Tovar Unavailable [facility] Complex Status:Outreach In Progress (Enrolling) Start date:10/07/2024 Enrollment reason:ADT Feed Overview ED- Pt went to [facility] ED on 10/06/24. Case Team Name Relationship Phone Rafaela Tovar(Responsible Staff) Continued Care and Services Coordination
--- OUTSIDE RECORDS SUMMARY | 2024-11-12 18:54 | XMS_ITS ---
Author Organization [employer] Address [address] [facility] [address] [place] [address] Care Team Providers Care Principal Librarian Name Role Phone Leanne Alcazar TOWER DIRECTOR Primary Care Provider [phone] Amari David RN Unavailable [phone] Rafaela Tovar Unavailable CM Complex Status:Outreach In Progress (Enrolling) Start date:10/07/2024 Enrollment reason:ADT Feed Overview ED- Pt went to [facility] ED on 10/06/24. Case Team Name Relationship Phone Amari David RN(Responsible Staff) Registered N aditi [phone] Continued Care and Services Coordination
--- OUTSIDE RECORDS SUMMARY | 2024-11-12 18:54 | XMS_ITS | Encounter Summary ---
Author Organization [facility] Address [address] [place] [address] Phone Care Team Providers Care Belt Sewer Name Role Phone Tete Sutherland MD Primary Care Provider [phone] Encounter Details Date Type Department Care Team (Late st Contact Info) Description 10/18/2016 Conversion Encounter [facility] [address] [place] [address] Social History Tobacco Use Types Packs/Day Years [...] on filedocumented in this encounter Care Teams Belt Sewer Relationship Specialty Start Date End Date Tete Sutherland MD [address] [place] [address] PCP - General 10/12/16 08/27/22 documented as of this encounter
--- OUTSIDE RECORDS SUMMARY | 2024-11-12 18:54 | XMS_ITS | Encounter Summary ---
Author Organization [facility] Address [address] [place] [address] Phone Care Team Providers Care Premium Note Interest Calculator Clerk Name Role Phone Tete Sutherland MD Primary Care Provider Encounter Details Date Type Department Care Team (Late st Contact Info) Description 02/04/2014 Documentation [facility] [place] Medicine [address] [place] [address] Family Medicine, Physician [address] [place], [place] [phone] Social History Tobacco Use Types Packs/Day Years [...] on filedocumented in this encounter Care Teams Premium Note Interest Calculator Clerk Relationship Specialty Start Date End Date Tete Sutherland MD [address] [place] [address] [place] [address] PCP - General 10/12/16 08/27/22 documented as of this encounter
--- OUTSIDE RECORDS SUMMARY | 2024-11-12 18:54 | XMS_ITS | Encounter Summary ---
Author Organization [facility] Address [address] [place] [address] Phone Care Team Providers Care Director Of Property Management Name Role Phone Tete Sutherland MD Primary Care Provider [phone] Encounter Details Date Type Department Care Team (Late st Contact Info) Description 11/13/2012 Documentation [facility] [place] Medicine [address] [place] [address] Family Medicine, Physician [address] [place], [place] [phone] Social History Tobacco Use Types Packs/Day Years [...] on filedocumented in this encounter Care Teams Director Of Property Management Relationship Specialty Start Date End Date Tete Sutherland MD [address] [place] [address] [place] [address] PCP - General 10/12/16 08/27/22 documented as of this encounter
--- OUTSIDE RECORDS SUMMARY | 2024-11-12 18:54 | XMS_ITS | Encounter Summary ---
Author Organization [facility] Address [address] [place] [address] Phone Care Team Providers Care Plating Department Helper Name Role Phone Tete Sutherland MD Primary Care Provider [phone] Encounter Details Date Type Department Care Team (Late st Contact Info) Description 01/29/2012 Documentation [facility] [place] [address] [place] [address] Family Medicine, Physician [address] [place], [place] [phone] Social History Tobacco Use Types Packs/Day Years [...] on filedocumented in this encounter Care Teams Plating Department Helper Relationship Specialty Start Date End Date Tete Sutherland MD [address] [place] [address] SUL[place] Narayan [id number] PCP - General 10/12/16 08/27/22 documented as of this encounter
--- OUTSIDE RECORDS SUMMARY | 2024-11-12 18:54 | XMS_ITS | Clinical Summary ---
Author Organization [employer] Address [address] [facility] 7[address] [place] [address] Care Team Providers Care Automatic Screwmaker Name Role Phone Leanne Alcazar WOOD CAULKER Primary Care Provider [phone] Amari David RN Unavailable [phone] Rafaela Tovar Unavailable Allergies No known [...] 2 Active Blood Glucose Monitoring Suppl (FreeStyle [place] Lite) w/Device kit TEST BLOOD SUGAR ONE OR TWO TIMES DAILY DIRECTED 2 Active TRUEplus Lancets 33G miscIndications:T ype 2 diabetes mellitus with hyperglycemia, without long-term current use of insulin ([facility]) TEST BLOOD SUGAR 4 times daily 120 each 1 3 Active glucose blood test stripIndications: Type 2 diabetes mellitus with hyperglycemia, without long-term current use of insulin ([facility]) Use as directed to check blood sugar four times daily 100 each 12 3 Active Continuous Glucose Compacting Machine Operator/Tender (FreeStyle [address] [place]) deviceIndications :Type 2 diabetes mellitus with hyperglycemia, without long-term current use of insulin ([facility]) Scan sensor every 8 hours 1 each 4 Active glucose 4 g chewable tabletIndications :Type 2 diabetes mellitus with hypoglycemia without coma, without long-term current use of insulin ([facility]) Chew 4 tablets (16 g) [...] Active insulin pen needle (Sure Comfort Pen [place]) 31G x 5 mm miscIndications:T ype 2 diabetes mellitus with hyperglycemia, without long-term current use of insulin ([facility]) USE DAILY DIRECTED 100 each 11 5 [...] hyperglycemia, without long-term current use of insulin ([facility]) USE DIRECTED, CHANGE EVERY 14 DAYS 2 [...] appointment Acute kidney injury superimposed on CKD ([facility] ) 03/02/2024 Assessment & Plan (03/02/2024 2:17 PM EST): Drink plenty of water Avoid nephrotoxic medication Work on glucose and blood pressure control 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 2 diabetes mellitus ([facility]) 12/02/2023 Assessment & Plan (03/02/2024 [...] Screening: RPR negative 12/2021 Vision Exam: 12/2021, [facility]: Discuss at follow up Immunizations: [...] 08/2022 Risk 0 Eye Exam: Referred to [facility] Eye Care; followed by outside retinal [...] until morning FBG < 130 Referral to [facility] DM educator Assessment & Plan (11/18/2022 [...] follow up Eye Exam: 12/2021, completed in [place] Lipid panel: 12/2021 WNL, order repeat at [...] Pt declines maintenance pharmacotherapy or referral [facility] trial PRN hydroxyzine for acute anxiety. Reviewed administration, risks, side effects Contact HC if sx worsen or experiencing thoughts of SI or self harm. Pt has [facility] crisis contact information Assessment & Plan (11/18/2022 12:46 PM EDT): STOP sertraline due to s/e Declines N referral Contact HC if sx worsen or experiencing thoughts of SI or self harm. Pt has [facility] crisis contact information Assessment & Plan [...] Encounters Date Type Department Care Team Description 11/10/2024 Patient Outreach [address] [address] Leanne Alcazar [facility] Care Coordination (C3 -[facility] Rafaela Tovar telephone call outreach) 10/29/2024 Patient Outreach [address] [address] [place] [facility] Care Coordination (C3 -[facility] Rafaela Tovar telephone call outreach) 10/22/2024 Patient Outreach [address] [address] Leanne Alcazar [facility] Care Coordination (C3 [facility] Rafaela Tovar telephone call outreach) 10/15/2024 Patient Outreach [address] [address] [place] [facility] Care Coordination (C3 [facility] Rafaela Tovar telephone call outreach) 10/07/2024 Patient Outreach [address] [address] Leanne Alcazar [facility] Care Coordination (C3 [facility] Rafaela Tovar telephone call outreach) 10/07/2024 Patient Outreach [address] [address] [place] [facility] Care Coordination (C3 [facility] Rafaela Tovar chart review) 10/07/2024 Patient Outreach [address] [address] [place] [facility] Care Coordination (C3- chart review) 10/07/2024 Patient Outreach [facility] MEDICINE [address] [place] [address] Leanne Alcazar [facility] 09/15/2024 Refill [facility] [address] [place] [address] Yamel Monroy WOOD CAULKER 09/03/[address] [address] [place] [facility] Type 2 diabetes mellitus with hyperglycemia, without long-term current use of insulin ([facility]) 08/25/2024 Refill [facility] MED[facility]INE [address] [place] [address] Leanne Alcazar [facility] Epigastric pain 08/25/[address] [address] [place]anne lee [facility] CGM PA sensors from Last 3 Months Immunizations Immunization Administration [...] MMR 11/10/2013,10/26/1998,07/31/1994 Meningococcal MCV4P ACYW-135 01/15/2007 Novel [id number], all formulations 01/17/2009 Pfizer Covid-19 Vaccine 12+ [...] the past 12 months, has t he [employer], gas, oil or water company threatened to [...] (2 of 2 - PCV) 01/17/2010 01/17/2009 Eye Exam 12/03/2023 12/02/2021 Diabetes: Foot Exam 09/05/2024 09/06/2023, 09/06/2023, 07/26/2022, Additional history exists Diabetes: Hemoglobin A1C 10/29/2024 025, 03/16/2024, 09/06/2023, Additional history exists COVID-19 Vaccine ( season) 2024 01/28/2023, 02/08/2021, 07/08/2020, Additional history exists Influenza Vaccine (#1) 2024 [...] Procedure Name Priority Date/Time Associated Diagnosis Comments HEMOGLOBIN A1C Routine 07/29/2024 3:12 PM EDT LIPID PANEL, STANDARD Routine 06/25/2024 2:45 PM EDT ZZZ HISTORICAL HEPATITIS C AB W/REFL TO HCV RNA, QN, PCR Routine 12/13/2021 11:51 AM EDT HIV 1/2 ANTIGEN/ANTIBODY, FOURTH GENERATION W/RFL Routine 12/13/2021 11:51 AM EDT from Last 3 Months or Most Recently Relevant to Health Maintenance Results * (ABNORMAL) Hemoglobin A1c (07/29/2024 3:12 PM EDT) Hemoglobin A1c 8.8(H) <6.0 % [facility] Comment:Hemoglobin A1C Refer ence Range Adults: 4.8 - 6.0 % Non diabetic: < 6.0 % Goal: < 7.0 %Additional Action Suggested: > 8.0 %Note: Hemoglobin A1c results are invalid for patients with abnormal amounts of HbF. Blood transfusions may impact the HbA1c concentration in the patient sample. Estimated Average Glucose 206 mg/dL [facility] Comment:eAG = Estimated ave rage glucose which is %A1C expressed asaverage glucose, using the formula of the Y3G-LbyoiglRcbzcdo Glucose study (ADAG), Diabetes Care, Vol.31,#8,Oct. 2007 07/29/2024 3:12 PM EDT 07/29/2024 3:12 PM EDT us Generic External Data Provider LAB BLOOD ORDERAB LES Final Result [facility] [address] [place] [phone] * (ABNORMAL) Lipid Panel, Standard (06/25/2024 2:45 PM EDT) Triglycerides 167(H) <150 mg/dL [facility] Comment:Desirable Triglyceri de: less than 150 mg/dLBorderline High Triglyceride 150-199 mg/dLHigh Triglyceride: 200-499 mg/dLVery High Triglyceride: greater than or equal to 5OO mg/dL Cholesterol 139 <200 mg/dL [facility] Comment:Desirable Cholestero l: less than 200 mg/dLBorderline High Cholesterol: 200-239 mg/dLHigh Cholesterol: greater than 239 mg/dL LDL Cholesterol Calculated 64 <100 mg/dL [facility] Comment:Desirable LDL: less than 100 mg/dLNear Optimal/Above Optimal LDL: 110- 129 mg/dLBorderline High LDL: 130-159 mg/dLHigh LDL: 160-189 mg/dLVery High LDL: greater than or equal to 190 mg/dL HDL Cholesterol 42 >40 mg/dL [facility] Comment:Desirable HDL: great er than 40 mg/dL Note: This HDL assay may give artificially low results in patients with liver disease. 06/25/2024 2:45 PM EDT 06/25/2024 2:45 PM EDT us Generic External Data Provider LAB BLOOD ORDERAB LES Final Result [facility] [address] [place] [phone] * HEPATITIS C AB W/REFL TO [...] a test for HCV RNA (test code 75581) is suggested. For additional information please refer to http://education.DataGravity/faq/WBM14i7 (This link is being provided for informational/ educational purposes only.) 12/13/2021 11:5 1 AM EDT [facility] WOOD CAULKER HISTORICAL/NON ORDERABLE LABS Final Result Performing Organization Address City/[facility]/ZIP Co de Phone Number CONVERTED LEGACY [...] purpose. For additional information please refer to http://education.[employer].PackLink/faq/UDH243 (This link is being provided for informational/ educational purposes only.) The performance of this assay has not been clinically validated in patients less than 2 years old. 12/13/2021 11:5 1 AM EDT [facility] WOOD CAULKER LAB BLOOD ORDERABLES Final Re sult Performing Organization Address [facility] Co de Phone Number CONVERTED LEGACY LABS from Last 3 Months or Most Recently Relevant to Health Maintenance Insurance [facility] C3 * Guarantor: Tristen Boateng Account Type Relation to Patient Date of Phone Billing Address Personal/Family Self [address] [place] [address] * Guarantor: Tristen Boateng Account Type Relation to Patient Date of Phone Billing Address Personal/Family Self [address] [place] [address] * Guarantor: Tristen Boateng Account Type Relation to Patient Date of Phone Billing Address Personal/Family Self [address] [place] [address] Care Teams Automatic Screwmaker Relationship Specialty Start Date End Date Leanne Alcazar FNP [address] [place] [address] PCP - General Family Medicine 12/13/21 Amari David, MITCH [address] [place] [address] Registered Nurse Family Medicine 10/07/24 Rafaela Tovar 10/07/24
--- OUTSIDE RECORDS SUMMARY | 2024-11-12 18:54 | XMS_ITS | Encounter Summary ---
Author Organization [facility] Address [address] [place] [address] Phone Care Team Providers Care Office Clerk Routine Name Role Phone Tete Sutherland MD Primary Care Provider Encounter Details Date Type Department Care Team (Late st Contact Info) Description 10/21/2012 Documentation [facility] Family Medicine [address] [place] [address] Family Medicine, Physician [address] [place], [place] [phone] Social History Tobacco Use Types Packs/Day Years [...] on filedocumented in this encounter Care Teams Office Clerk Routine Relationship Specialty Start Date End Date Tete Sutherland MD [address] [place] [address] [place] [address] PCP - General 10/12/16 08/27/22 documented as of this encounter
--- OUTSIDE RECORDS SUMMARY | 2024-11-12 18:54 | XMS_ITS | Encounter Summary ---
Author Organization [facility] Address [address] [place] [address] Phone Care Team Providers Care Atomizer Assembler Name Role Phone Tete Sutherland MD Primary Care Provider Encounter Details Date Type Department Care Team (Late st Contact Info) Description 04/08/2014 Documentation [facility] Family Medicine [address] [place] [address] Family Medicine, Physician [address] [place], [place] [phone] Social History Tobacco Use Types Packs/Day Years [...] on filedocumented in this encounter Care Teams Atomizer Assembler Relationship Specialty Start Date End Date Tete Sutherland MD [address] [place] [address] [place] [address] PCP - General 10/12/16 08/27/22 documented as of this encounter
--- OUTSIDE RECORDS SUMMARY | 2024-11-12 18:54 | XMS_ITS | Encounter Summary ---
Author Organization [facility] Address [address] [place] [address] Phone Care Team Providers Care Motion Picture Narrator Name Role Phone Tete Sutherland MD Primary Care Provider Encounter Details Date Type Department Care Team (Late st Contact Info) Description 10/22/2012 Documentation [facility] Family Medicine [address] [place] [address] Family Medicine, Physician [address] [place], [place] [phone] Social History Tobacco Use Types Packs/Day Years [...] on filedocumented in this encounter Care Teams Motion Picture Narrator Relationship Specialty Start Date End Date Tete Sutherland MD [address] [place] [address] [place] [address] PCP - General 10/12/16 08/27/22 documented as of this encounter
--- OUTSIDE RECORDS SUMMARY | 2024-11-12 18:54 | XMS_ITS | Encounter Summary ---
Author Organization [employer] Address [address] [facility] [address] [place] [address] Care Team Providers Care Quill Buncher And Sorter Name Role Phone [facility] Primary Care Provider [phone] Amari David RN Unavailable [phone] Rafaela Tovar Unavailable Reason for Visit * Reason Comments [facility]ination [facility] call outreach Encounter Details Date Type Department Care Team (Latest Contact Info) Description 11/10/2024 Patient Outreach [facility] MEDICINE [address] [place] [address] Ennis Kyburz, [facility] [address] [place] [address] Care Coordination (C3 -ANTONIO Tovar telephone call [...] encounter Progress Notes * Rafaela Tovar - 11/10/2024 2:48 PM EDT CHW Rafaela Tovar , placed outbound call to patient in regards to offer services. CHW introducing herself from [facility] CM Department with CHW's name, department and [...] documented as of this encounter Care Teams Quill Buncher And Sorter Relationship Specialty Start Date End Date Leanne Alcazar FNP [address] [place] [address] PCP - General Family Medicine 12/13/21 Amari David RN [address] [place] [address] [place] [address] Registered Nurse Family Medicine 10/07/24 Rafaela Tovar 10/07/24 documented as of this encounter
--- OUTSIDE RECORDS SUMMARY | 2024-11-12 18:54 | XMS_ITS | Clinical Summary ---
Author Organization [facility] Address [address] [place] [address] Phone Care Team Providers Care Door To Door Sales Representative Name Role Phone Unavailable Primary Care Provider [...] 01/21/1995, Additional history exists Influenza Vaccines (#1) 2024 12/05/19 14, 11/28/2012, 04/15/2012, Additional history exists COVID-19 Vaccine ( season) 2024 HIB Vaccines Completed 07/31/1994, 02/02, 1993 IPV [...]
--- OUTSIDE RECORDS SUMMARY | 2024-11-12 18:54 | XMS_ITS | Encounter Summary ---
Author Organization [facility] Address [address] [place] [address] Phone Care Team Providers Care Engine Wiper Name Role Phone Tete Sutherland MD Primary Care Provider Encounter Details Date Type Department Care Team (Late st Contact Info) Description 08/05/2009 Documentation [facility] Family Medicine [address] [place] [address] Family Medicine, Physician [address] [place], [place] [phone] Social History Tobacco Use Types Packs/Day Years [...] on filedocumented in this encounter Care Teams Engine Wiper Relationship Specialty Start Date End Date Tete Sutherland MD [address] [place] [address] [place] [address] PCP - General 10/12/16 08/27/22 documented as of this encounter
--- OUTSIDE RECORDS SUMMARY | 2024-11-12 18:54 | XMS_ITS | Encounter Summary ---
Author Organization [employer] Address [address] [facility] 7t [place] [address] Care Team Providers Care Electrician Aircraft Name Role Phone [facility] Primary Care Provider [phone] Amari David RN Unavailable [phone] Rafaela Tovar Unavailable Reason for Visit * Reason Onset Date Comments Nurse Triage 08/15/2023 Encounter Details Date Type Department Care Team (Late st Contact Info) Description 08/15/2023 Telephone [facility] MEDICINE [address] [place], [place] [phone] [facility] [address] [place] [address] Nurse Triage Social History Tobacco Use Types [...] blood sugars were WNL. Pt went to [facility] ED 08/14/23 in [...] past 3 days, pt was seen at [facility] on 08/14 for nausea/vomiting. Pt has not eaten in 28 hours. The caller accepted this outcome Please contact pt at [phone] documented in this encounter Plan of Treatment Not on file documented as of this encounter Visit Diagnoses Not on filedocumented in this encounter Additional Health Concerns Assessment Noted Time PHQ-9 Depression Total Score: 24 023 10:42 AM EST documented as of this encounter Care Teams Electrician Aircraft Relationship Specialty Start Date End Date Leanne Alcazar FNP [address] [place] [address] PCP - General Family Medicine 12/13/21 Amari David, RN [address] [place] [address] Registered Nurse Family Medicine 10/07/24 Rafaela Tovar 10/07/24 documented as of this encounter
== END 2024-11-12 16:27 | disposition home or self-care (01) ==
LOC: HO.HKA 16:09
PROVIDERS: PCP Registered Nurse; Visit Provider Internal Medicine Hypertension Specialist
DX: I12.9 Hypertensive chronic kidney disease with stage 1 through stage 4 chronic kidney disease, or unspecified chronic kidney disease (principal); N18.2 Chronic kidney disease, stage 2 (mild); N17.9 Acute kidney failure, unspecified
CPT/HCPCS: 99214

== ENCOUNTER → 2024-11-12 16:08 | Outpatient (BNVA) | payer MEDICAID, SELFPAY | PROVIDERS: PCP Registered Nurse; Visit Provider Internal Medicine Hypertension Specialist | DX: N18.2 Chronic kidney disease, stage 2 (mild) (principal); I10 Essential (primary) hypertension; N17.9 Acute kidney failure, unspecified | CPT/HCPCS: 99212 ==

== ENCOUNTER 2024-11-24 13:47 | Outpatient (REF) | payer MEDICAID, SELFPAY ==
--- OUTSIDE RECORDS SUMMARY | 2024-11-19 15:40 | XMS_ITS | Encounter Summary ---
Author Organization [employer] Address [address] [facility] [address] [place] [address] Care Team Providers Care Vessel Builder Name Role Phone Leanne Alcazar TALENT ACQUISITION ADMINISTRATOR Primary Care Provider [phone] Reason for Referral * Imaging (Routine) - Authorized Specialty Diagnoses / Procedures Referred By Keith cast Referred To Contact Radiology Diagnoses Cyclical vomiting Procedures NM Gastric Emptying Solid Vivian Ham DO [address] [place] [address] Phone: tel: fax: [facility] [address] [place] [address] Phone: tel: fax: Referral ID Status Reason Start Date Expiration Date V isits Requested Visits Authorized [id number] Authorized 11/19/2024 11/19/2025 3 1 Reason for Visit * Reason Comments Chills Shaking Vomiting Abdominal Pain Encounter Details Date Type Department Care Team (Late st Contact Info) Description 11/19/2024 3:40 PM EDT Office Visit [facility] [address], [place] [phone] Vivian Ham DO [address], [place] [phone] Cyclical vomiting (Primary Dx); Essential hypertension; Nausea; Viral URI Social History Tobacco Use Types Packs/Day Years [...] Sign Reading Time Taken Comments Blood Pressure 164/94 11/19/2024 3:46 PM EDT Pulse 78 11/19/2024 3:17 PM EDT Temperature 37.2 C (99 F) 11/19/2024 3:17 PM EDT Respiratory Rate 18 11/19/2024 3:17 PM EDT Oxygen Saturation 99% 11/19/2024 3:17 PM EDT Inhaled Oxygen Concentration - - Weight 102 kg (224 lb) 11/19/2024 3:17 PM EDT Height - - Body Mass Index 35.08 03/02/2024 1:27 PM EST documented in this encounter Progress Notes * Vivian Jitendra, DO - 11/19/2024 3:40 PM EDT SUBJECTIVE: Tristen Boateng is a 29 y.o. year old male who presents for sick visit. HPI He comes to [place] c/o stomach pain and episodes of vomiting. He says that his work wants a note stating that he can return to work. He called yesterday morning c/o multiple episodes of vomiting and abd pain and was advised to go [facility] ED. He says that he woke up ~ 4am and was continuously vomiting all morning and the vomiting finally subsided ~3pm in the afternoon. He started trialing sips of water which he was able to tolerate and decided not to go to the ED. He tried chicken soup last night which he tolerated. He has been a ble to tolerate PO today with no further vomiting; he still feels some nausea. He says that every time he gets these episodes, he gets significant abdominal discomfort and chills. He says that that last episode he had was at the end September/beginning of October. He doesn't know what to do. He says he's been to the ED multiple times and he's been admitted to the hospital but nothing has helped. He says that he used to be an extremely heavy THC user, smoking multiple times a day. He says that he has cut down significantly and usually smokes once per day when he comes home from work. He has alot of stresses; new baby, new job, kid with autism. He was dx'd with DM when he was a pre-teen. He has not had a GES. He follows with GI and had visit at the end of October and his PPI was changed to nexium BID and hissucralfate was decreased to nightly. He was referred for EGD which has not yet been done or scheduled. He did not take his BP meds last night or this morning. History provided by: Patient barn hand used: No Abdominal Pain This is a recurrent problem. The current episode started yesterday. The onset quality is sudden. The problem occurs intermittently. The problem has been resolved. The pain is located in the generalized abdominal region. The quality of the pain is colicky and cramping. The abdominal pain does not radiate. Associated symptoms include nausea and vomiting. Pertinent negatives include no constipation,diarrhea, fever or headaches. The pain is aggravated by eating. He has tried proton pump inhibitorsfor the symptoms. The treatment provided no relief. His past medical history is significant for GERD. Review of Systems Constitutional: Negative for chills, fatigue and fever. HENT: Negative for congestion. Eyes: Negative for visual disturbance. Respiratory: Negative for cough and shortness of breath. Cardiovascular: Negative for chest pain, palpitations and leg swelling. Gastrointestinal: Positive for abdominal pain, nausea and vomiting. Negative for constipation and diarrhea. Skin: Negative for rash. Neurological: Negative for dizziness and headaches. Patient Active Problem List Diagnosis Type 2 diabetes mellitus (CMS/HCC) Generalized anxiety disorder ADHD Healthcare maintenance Primary hypertension 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 2 diabetes mellitus (CMS/HCC) (CMS/HCC) Nausea Epigastric pain Acute kidney injury superimposed on CKD (CMS/HCC) (CMS/HCC) Cyclical vomiting No Known Allergies OBJECTIVE Vitals: 11/19/24 1517 11/19/24 1546 BP: (!) 180/88 (!) 164/94 BP Location: Left arm Right arm Patient Position: Sitting Sitting BP Cuff Size: Adult Large adult Pulse: 78 Resp: 18 Temp: 99 ??F (37.2 ??C) TempSrc: Oral SpO2: 99% Weight: 224 lb (102 kg) Physical Exam Constitutional: General: He is not in acute distress. Appearance: Normal appearance. HENT: Mouth/Throat: Pharynx: No oropharyngeal exudate or posterior oropharyngeal erythema. Eyes: Extraocular Movements: Extraocular movements intact. Conjunctiva/sclera: Conjunctivae normal. Pupils: Pupils are equal, round, and reactive to light. Cardiovascular: Rate and Rhythm: Normal rate and regular rhythm. Heart sounds: Normal heart sounds. No murmur heard. Pulmonary: Effort: Pulmonary effort is normal. Breath sounds: Normal breath sounds. No wheezing or rhonchi. Abdominal: General: Bowel sounds are normal. Palpations: Abdomen is soft. There is no mass. Tenderness: There is no abdominal tenderness. There is no guarding or rebound. Musculoskeletal: Cervical back: Neck supple. No tenderness. Lymphadenopathy: Cervical: No cervical adenopathy. Neurological: General: No focal deficit present. Mental Status: He is alert and oriented to person, place, and time. Cranial Nerves: No cranial nerve deficit. Motor: No weakness. Gait: Gait normal. Psychiatric: Mood and Affect: Mood normal. Office Visit on 11/19/2024 Component Date Value Ref Range Status Rapid COVID Ag 11/19/2024 Negative Final Rapid Strep A Screen 11/19/2024 Negative Negative, None Detected Final Influenza A 11/19/2024 Negative Negative, Indeterminate Final Influenza B 11/19/2024 Negative Negative, Indeterminate Final ASSESSMENT/PLAN Diagnoses and all orders for this visit: Cyclical vomiting Intermittent episodes of severe vomiting with diffuse abd pain and shaking chills, likely cyclical vomiting syndrome vs cannabinoid hyperemesis syndrome, ddx includes gastroparesis -provided reassurance -check basic labs -referred for GES -abd US with echogenic liver with no focal lesion and trace amt GB sludge July 2024 -advised contact GI re: EGD -strongly advised pt to stop THC use -he agrees to trial amitriptyline nightly, titrate prn -trial zofran and benadryl prn recurrent vomiting sx -f/u with GI as scheduled -advised rtc or go to ED if sx change or worsen, he agrees with plans - CBC auto differential; Future - Basic Metabolic Panel; Future - Hepatic Function Panel; Future - Amylase; Future - Lipase; Future - NM Gastric Emptying Solid; Future - ondansetron (Zofran) 4 MG tablet; Take 1 tablet (4 mg) by mouth every 8 (eight) hours if needed for nausea or vomiting. - POCT Rapid COVID Ag - POCT rapid strep A manually resulted - Influenza A (ID NOW Rapid Molecular) - Influenza B (ID NOW Rapid Molecular) - amitriptyline (Elavil) 10 MG tablet; Take 1 tablet (10 mg) by mouth at bedtime. - diphenhydrAMINE (BENADryl) 25 MG tablet; Take 1 tablet (25 mg) by mouth every 6 (six) hours if needed for nausea or vomiting. Essential hypertension BP elevated, currently asymptomatic -d/w pt importance of med compliance -cont coreg BID -cont amlodipine daily -f/u with renal as scheduled -advised go to ED if severe TOLENTINO, CP or vision changes, he agrees with plans F/U with PCP in 1 mos or sooner prn Current Outpatient Medications: Alcohol Swabs (Alcohol Prep) 70 % pads, USE TO CLEAN SKIN BEFORE testing blood SUGAR OR INJECTION, Disp: 100 each, Rfl: 5 amitriptyline (Elavil) 10 MG tablet, Take 1 tablet (10 mg) by mouth at bedtime., Disp: 30 tablet, Rfl: 2 amLODIPine (Norvasc) 10 MG tablet, Take 1 tablet (10 mg) by mouth Once per day., Disp: 90 tablet, Rfl: 0 Blood Glucose Monitoring Suppl (FreeStyle [place] Lite) w/Device kit, TEST BLOOD SUGAR ONE OR TWO TIMES DAILY DIRECTED, Disp: , Rfl: Blood Pressure Monitoring (Omron 3 Series BP Monitor) device, USE TO CHECK BLOOD PRESSURE ONE OR TWO TIMES DAILY, Disp: , Rfl: carvedilol (Coreg) 25 MG tablet, TAKE 1 TABLET BY MOUTH TWICE A DAY, Disp: 180 tablet, Rfl: 0 Continuous Glucose Email Campaign Specialist (FreeStyle Ave [address] [place]) device, Scan sensor every 8 hours, Disp: 1 each, Rfl: 0 Continuous Glucose Sensor (FreeStyle Ave 2 Sensor) misc, USE DIRECTED, CHANGE EVERY 14 DAYS, Disp: 2 each, Rfl: 3 diphenhydrAMINE (BENADryl) 25 MG tablet, Take 1 tablet (25 mg) by mouth every 6 (six) hours if needed for nausea or vomiting., Disp: 30 tablet, Rfl: 1 escitalopram (Lexapro) 10 MG tablet, TAKE 1 TABLET BY MOUTH EVERY DAY, Disp: 30 tablet, Rfl: 2 FREESTYLE LITE test strip, USE DIRECTED TO TEST BLOOD SUGAR ONE OR TWO TIMES DAILY, Disp: , Rfl: glucose 4 g chewable tablet, Chew 4 tablets (16 g) if needed for low blood sugar., Disp: 50 tablet,Rfl: 12 glucose blood (FREESTYLE LITE) test strip, USE 1 Each by DIRECTED route every day, Disp: , Rfl: glucose blood test strip, Use as directed to check blood sugar four times daily, Disp: 100 each, Rfl: 12 insulin pen needle (Sure Comfort Pen [place]) 31G x 5 mm misc, USE DAILY DIRECTED, Disp: 100 each, Rfl: 11 Jardiance 10 MG, TAKE 1 TABLET BY MOUTH EVERY DAY, Disp: 30 tablet, Rfl: 11 Lantus SoloStar 100 UNIT/ML pen, Inject 10 Units under the skin Once per day., Disp: , Rfl: LORazepam (Ativan) 1 MG tablet, Take 1 tablet by mouth 2 times daily., Disp: , Rfl: ondansetron (Zofran) 4 MG tablet, Take 1 tablet (4 mg) by mouth every 8 (eight) hours if needed fornausea or vomiting., Disp: 20 tablet, Rfl: 1 pantoprazole (ProtoNix) 40 MG EC tablet, TAKE 1 TABLET BY MOUTH EVERY MORNING BEFORE BREAKFAST DO NOT BREAK, CRUSH, DISSOLVE OR CHEW, Disp: 90 tablet, Rfl: 0 TRUEplus Lancets 33G misc, TEST BLOOD SUGAR 4 times daily, Disp: 120 each, Rfl: 1 documented in this encounter Plan of Treatment Upcoming Encounters Date Type Department Care Team (Late st Contact Info) Description 12/02/2024 11:00 AM EDT Office Visit [facility] [address], [place] [phone] [facility] [address] [place] [address] Scheduled Orders Name Type Priority Associated Diagnoses Orde r Schedule Basic Metabolic Panel Lab Routine Cyclical vomiting Expected: 11/19/2024 (Approximate), Expires: 11/19/2025 Amylase Lab Routine Cyclical vomiting Expected: 11/19/2024 (Approximate), Expires: 11/19/2025 NM Gastric Emptying Solid Imaging Routine Cyclical vomiting Expected: 11/19/2024, Expires: 11/19/2025 documented as of this encounter Procedures Procedure Name Priority Date/Time Associated Diagnosis Comments CBC WITH AUTO DIFFERENTIAL Routine 11/24/2024 2:03 PM EDT Cyclical vomiting LIPASE Routine 11/24/2024 2:03 PM EDT Cyclical vomiting HEPATIC FUNCTION PANEL Routine 11/24/2024 2:03 PM EDT Cyclical vomiting POCT INFLUENZA B (ID NOW RAPID MOLECULAR) Routine 11/19/2024 3:29 PM EDT Viral URI POCT INFLUENZA A (ID NOW RAPID MOLECULAR) Routine 11/19/2024 3:29 PM EDT Viral URI POCT RAPID COVID ANTIGEN Routine 11/19/2024 3:29 PM EDT Viral URI POCT RAPID STREP A Routine 11/19/2024 3: 29 PM EDT Viral URI documented in this encounter Results * Lipase (11/24/2024 2:03 PM EDT) Pathologist [facility] Lipase 48 8 - 78 U/L [facility] Blood Venous blood specimen / Unknown 11/24/2024 2:03 PM EDT 11/24/2024 4:09 PM EDT Vivian Ham DO LAB BLOOD ORDERABLES Final R esult [facility] [address] [place] [phone] * (ABNORMAL) Hepatic Function Panel (11/24/2024 2:03 PM EDT) [facility] Bilirubin, Total 1.3(H) 0.0 - 1.0 mg/dL [facility] Bilirubin, Direct 0.3 0.0 - 0.5 mg/dL [facility] Aspartate Amino Transferase 21 5 - 37 U/L [facility] Alanine Aminotransferase 15 0 - 40 U/L [facility] Total Protein 6.4(L) 6.5 - 8.0 g/dL [facility] Albumin Level 3.7 3.5 - 5.0 g/dL [facility] Alkaline Phosphatase 83 39 - 117 U/L [facility] Blood Venous blood specimen / Unknown 11/24/2024 2:03 PM EDT 11/24/2024 4:09 PM EDT Vivian Ham DO LAB BLOOD ORDERABLES Final R esult [facility] [address], [place] [phone] * (ABNORMAL) CBC auto differential (11/24/2024 2:03 PM EDT) White Blood Count 7.7 4.8 - 10.8 X10*3/uL [facility] Red Blood Count 3.73(L) 4.60 - 5.80 X10*6/uL [facility] Hemoglobin 10.6(L) 14.0 - 18.0 g/dl [facility] Hematocrit 31.0(L) 42.0 - 52.0 % [facility] Mean Corpuscular Volume 83.1 80.0 - 98.0 fL [facility] Mean Corpuscular Hemoglobin 28.4 27.0 - 33.0 pg [facility] Mean Corpuscular HGB Conc 34.2 31.0 - 36.0 g/dl [facility] Red Cell Distribution Width 12.4 11.0 - 16.0 % [facility] Platelet Count 234 160 - 400 X10*3/uL [facility] Mean Platelet Volume 9.8 9.4 - 12.4 fL [facility] Neutrophils Percent Auto 71.5 45 - 73 % [facility] Imm Gran Pct Auto 0.3 0.0 - 0.4 % [facility] Lymphocytes Percent Auto 19.4(L) 20 - 40 % [facility] Monocytes Percent Auto 7.8 2 - 11 % [facility] Eosinophils Percent Auto 0.6 0 - 4 % [facility] Basophils Percent Auto 0.4 0 - 2 % [facility] NRBC Pct Auto 0.0 0.0 - 0.2 /100WBC [facility] Neutrophils Absolute Auto 5.5 2.0 - 8.3 x10*3/uL [facility] Imm Gran Abs Auto 0.02 0.00 - 0.03 X10*3/uL [facility] Lymphocytes Absolute Auto 1.5 1.2 - 4.9 X10*3/uL [facility] Monocytes Absolute Auto 0.6 0.1 - 1.2 X10*3/uL [facility] Eosinophils Absolute Auto 0.1 0.0 - 0.4 X10*3/uL [facility] Basophils Absolute Auto 0.0 0.0 - 0.2 X10*3/uL [facility] NRBC Abs Auto 0.000 0.0 - 0.012 X10*3/uL [facility] Blood Venous blood specimen / Unknown 11/24/2024 2:03 PM EDT 11/24/2024 4:09 PM EDT Vivian Ham DO LAB BLOOD ORDERABLES Final R esult Performing Organization Address [facility]/ZIP Co de Phone Number [facility] [address] [place] [phone] * Influenza B (ID NOW Rapid Molecular) (11/19/2024 3:29 PM EDT) Influenza B Negative Negative, Indeterminate [facility] Swab 11/19/2024 3:29 PM EDT Vivian Ham DO POINT OF CARE TEST ENTER/CHAPINCITO T ORDERABLES Final Result Performing Organization Address [facility]/ZIP Co de Phone Number [facility] [address] [place] [phone] * Influenza A (ID NOW Rapid Molecular) (11/19/2024 3:29 PM EDT) Influenza A Negative Negative, Indeterminate [facility] Swab 11/19/2024 3:29 PM EDT us Vivian Ham DO POINT OF CARE TEST ENTER/CHAPINCITO T ORDERABLES Final Result Performing Organization Address [facility]/ZIP Co de Phone Number [facility] [address] [place] [phone] * POCT rapid strep A manually resulted (11/19/2024 3:29 PM EDT) Rapid Strep A Screen Negative Negative, None Detected [facility] Swab 11/19/2024 3:29 PM EDT Vivian Ham DO POINT OF CARE TEST ENTER/CHAPINCITO T ORDERABLES Final Result Performing Organization Address City/[facility]/ZIP Co de Phone Number [facility] [address] [place] [phone] * POCT Rapid COVID Ag (11/19/2024 3:29 PM EDT) Rapid COVID Ag Negative [facility] Swab 11/19/2024 3:29 PM EDT Vivian Ham DO POINT OF CARE TEST ENTER/CHAPINCITO T ORDERABLES Final Result Performing Organization Address [facility] Co de Phone Number [facility] [address] [place] [phone] documented in this encounter Visit Diagnoses Diagnosis Cyclical vomiting- Primary Persistent vomiting Essential hypertension Unspecified essential hypertension Nausea Nausea alone Viral URI Acute upper respiratory infections of unspecified site documented in this encounter Additional Health Concerns Assessment Noted Time PHQ-9 Depression Total Score: 0 01/27/20 24 3:31 PM EST documented as of this encounter Care Teams Vessel Builder Relationship Specialty Start Date End Date Leanne Alcazar FNP [address] [place] [phone] PCP - General Family Medicine 12/13/21 documented as of this encounter
--- OUTSIDE RECORDS SUMMARY | 2024-11-24 15:00 | XMS_ITS | Encounter Summary ---
Author Organization [employer] Address [address] [facility] [address] [place] [address] Care Team Providers Care Cutter Brake Lining Name Role Phone Ottoniel Leanne LOGGING TRUCK DRIVER Primary Care Provider [phone] Reason for Referral * Imaging (Routine) - Pending Review Specialty Diagnoses / Procedures Referred By Keith cast Referred To Contact Radiology Diagnoses Asymptomatic microscopic hematuria Procedures CT Abdomen Pelvis w/o Contrast Devin Valiente MD [address] [place] [address] Phone: tel: fax: Referral ID Status Reason Start Date Expiration Date V isits Requested Visits Authorized [id number] Pending Review 11/24/2024 11/24/2025 1 1 * Consultation (Routine) - Authorized Specialty Diagnoses / Procedures Referred By Keith cast Referred To Contact Urology Diagnoses Asymptomatic microscopic hematuria Devin Valiente MD [address] [place] [address] Phone: tel: fax: [facility] Referral ID Status Reason Start Date Expiration Date Visits Requested Visits Authorized [id number] Authorized Specialty Services Required 11/24/2024 11/24/2025 6 6 Encounter Details Date Type Department Care Team (Late st Contact Info) Description 11/24/2024 3:00 PM EDT Office Visit [facility] MED[facility] [address] [place], [place] [phone] Devin Valiente MD [address] [place] [address] Hypertensive urgency (Primary Dx); Primary hypertension; Asymptomatic microscopic hematuria; 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 2 diabetes mellitus (CMS/HCC) (CMS/HCC); Generalized anxiety disorder; Type 2 diabetes mellitus with hyperglycemia, without long-term current use of insulin (CMS/HCC); Anemia in other chronic diseases classified elsewhere Social History Tobacco Use Types Packs/Day Years [...] t he electric, gas, oil or water [employer] threatened to shut off services in your [...] Sign Reading Time Taken Comments Blood Pressure 200/98 11/24/2024 4:17 PM EDT Pulse 85 11/24/2024 3:02 PM EDT Temperature 36.7 C (98 F) 11/24/2024 3:03 PM EDT Respiratory Rate 20 11/24/2024 3:02 PM EDT Oxygen Saturation 98% 11/24/2024 3:02 PM EDT Inhaled Oxygen Concentration - - Weight 95.2 kg (209 lb 12.8 oz) 11/24/2024 3:02 PM EDT Height 170.2 cm (5' 7 ) 11/24/2024 3:02 PM EDT Body Mass Index 32.86 11/24/2024 3:02 PM EDT documented in this encounter Progress Notes * Devin Rodriguez MD - 11/24/2024 3:00 PM EDT SUBJECTIVE Tristen Boateng is a 29 y.o. male who presents for No chief complaint on file.. Pt of [facility], initially scheduled with me after patient requesting work clearance. I was asked by RN to come into the room after patient's blood pressure found to be elevated and patient c/o epigastric discomfort Review of Systems Constitutional: Negative for fever. HENT: Negative for sore throat. Respiratory: Negative for cough and shortness of breath. Cardiovascular: Positive for chest pain. Gastrointestinal: Positive for nausea and vomiting. Negative for abdominal pain. Neurological: Negative for headaches. Allergies[1] OBJECTIVE Vitals: 11/24/24 1502 11/24/24 1503 11/24/24 1617 BP: (!) 180/90 (!) 192/90 (!) 200/98 BP Location: Left arm Left arm Left arm Patient Position: Sitting Sitting Sitting BP Cuff Size: Adult Adult Pulse: 85 Resp: 20 Temp: 97.1 ??F (36.2 ??C) 98 ??F (36.7 ??C) TempSrc: Temporal Oral SpO2: 98% Weight: 209 lb 12.8 oz (95.2 kg) Height: 5' 7 (1.702 m) Physical Exam Vitals reviewed. Constitutional: Appearance: He is obese. HENT: Head: Normocephalic and atraumatic. Right Ear: External ear normal. Left Ear: External ear normal. Nose: Nose normal. Mouth/Throat: Mouth: Mucous membranes are moist. Eyes: Conjunctiva/sclera: Conjunctivae normal. Cardiovascular: Rate and Rhythm: Normal rate and regular rhythm. Pulmonary: Effort: Pulmonary effort is normal. Breath sounds: Normal breath sounds. Skin: General: Skin is warm. Neurological: General: No focal deficit present. Mental Status: He is alert. Mental status is at baseline. Psychiatric: Mood and Affect: Mood is anxious. Behavior: Behavior is cooperative. Comments: anxious Assessment/Plan Problem List Items Addressed This Visit Hypertensive urgency - Primary Patient with difficult to control hypertension On a regimen of: Losartan 100 mg po daily (Nephrology), Amlodipine 10 mg po daily, Coreg 25 mg po BID and Furosemide 20 mg po daily Did not take his medications today due to inability to keep things down despite daily use of Ondansetron On exam pt with severe hypertension, EKG unremarkable Pt unable to take POs due to nausea and vomiting that did not respond to Ondansetron Plan: Pt will need to to be evaluated in the ER to bring his BP down control his Nausea and Vomiting so he can tolerate POs Relevant Medications losartan (Cozaar) 100 MG tablet Primary hypertension Elevated Hypertensive urgency , unable to take POs due to N/V did not take his meds this morning despite Zofran. Pt c/o chest discomfort (EKG Normal) Plan: ER evaluation Once tolerating POs will need Pt is supposed to be on Losartan 100 mg po daily , Coreg 25 mg po BID, Amlodipine 10 mg po daily and Furosemide 20 mg po daily Pt recently seen by Dr Orlando Crane Relevant Medications losartan (Cozaar) 100 MG tablet Other Relevant Orders ECG 12 lead (Completed) Metanephrines, Fractionated, Free, LC/MS/MS, Plasma Metanephrines, Fractionated, LC/MS/MS, 24-Hour Urine Hematuria Pt has had 3 consecutive UA with Large Blood, probably some of it due to Proteinuria, nevertheless he might benefit from further work up Etiology? Plan: Send Urine for citology CT abdominal/Pelvis rule out Nephrolithiasis Urology consult Relevant Orders POCT Urinalysis (Completed) Urinalysis Complete Referral to Urology CT Abdomen Pelvis w/o Contrast POCT LEONOR-14 Urine Drug Screen (Completed) Cytology, urine 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 2 diabetes mellitus ([facility]/HCC) ([facility]) Pt is under the care of Nephrology dr Perry, case discussed with him over the phone Last BMP Lab Results Component Value Date NA 137 07/02/2024 NA 136 06/25/2024 K 4.1 07/02/2024 K 4.6 06/25/2024 CL 98 07/02/2024 CL 105 06/25/2024 BUN 40 (H) 07/02/2024 BUN 31 (H) 06/25/2024 CREATININE 2.15 (H) 07/02/2024 CREATININE 1.81 (H) 06/25/2024 Dr. Perry already ordered repeat Relevant Medications losartan (Cozaar) 100 MG tablet Generalized anxiety disorder Pt tells me he has a psychotherapist but not a psychiatric prescriber. He uses Hydroxyzine prn for anxiety. Once discharged from Hospital might need referral to Psychiatric prescriber. Pt reports intermittent episodes of severe anxiety, associated with elevated blood pressure and intermittent palpitations Case discussed with his Cyanide Furnace Operator , I will order Plasma Metanephrines and a 24 urine collection first , pending that further evaluation Since patient is on a beta catarino and this cannot be safely held due to severe hypertension. Interpretation of initial test results will need to be done with that in mind. Pt to come back and see PCP in 1 week Type 2 diabetes mellitus ([facility]) Relevant Medications losartan (Cozaar) 100 MG tablet Other Relevant Orders POCT Glucose (Completed) POCT Hgb A1c (Completed) Other specified anemias Pt has anemia Lab Results Component Value Date WBC 7.7 11/24/2024 HGB 10.6 (L) 11/24/2024 HCT 31.0 (L) 11/24/2024 MCV 83.1 11/24/2024 PLT 234 11/24/2024 Etiology? Pt with CKD stage 2, might be a contributing factor Plan: Obtain Iron studies, B12 and Folate to begin with F/u with PCP after initial testing Relevant Orders Iron And Total Iron Binding Capacity Ferritin Vitamin B12/Folate, Serum Panel Future Appointments Date Time Provider Department Center 12/02/2024 11:00 AM [facility] [1] No Known Allergies documented in this encounter Miscellaneous Notes * Assessment & Plan Note - Devin Rodriguez MD - 11/24/2024 4:34 PM EDT Associated Problem(s): Other specified anemias Pt has anemia Lab Results Component Value Date WBC 7.7 11/24/2024 HGB 10.6 (L) 11/24/2024 HCT 31.0 (L) 11/24/2024 MCV 83.1 11/24/2024 PLT 234 11/24/2024 Etiology? Pt with CKD stage 2, might be a contributing factor Plan: Obtain Iron studies, B12 and Folate to begin with F/u with PCP after initial testing * Assessment & Plan Note - Devin Rodriguez MD - 11/24/2024 4:29 PM EDT Associated Problem(s): Generalized anxiety disorder Pt tells me he has a psychotherapist but not a psychiatric prescriber. He uses Hydroxyzine prn for anxiety. Once discharged from Hospital might need referral to Psychiatric prescriber. Pt reports intermittent episodes of severe anxiety, associated with elevated blood pressure and intermittent palpitations Case discussed with his Cyanide Furnace Operator , I will order Plasma Metanephrines and a 24 urine collection first , pending that further evaluation Since patient is on a beta catarino and this cannot be safely held due to severe hypertension. Interpretation of initial test results will need to be done with that in mind. Pt to come back and see PCP in 1 week * Assessment & Plan Note - Devin Rodriguez MD - 11/24/2024 4:20 PM EDT Associated Problem(s): Hypertensive urgency Patient with difficult to control hypertension On a regimen of: Losartan 100 mg po daily (Nephrology), Amlodipine 10 mg po daily, Coreg 25 mg po BID and Furosemide 20 mg po daily Did not take his medications today due to inability to keep things down despite daily use of Ondansetron On exam pt with severe hypertension, EKG unremarkable Pt unable to take POs due to nausea and vomiting that did not respond to Ondansetron Plan: Pt will need to to be evaluated in the ER to bring his BP down control his Nausea and Vomiting so he can tolerate POs * Assessment & Plan Note - Devin Rodriguez MD - 11/24/2024 3:44 PM EDT Associated Problem(s): 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 2 diabetes mellitus ([facility]) ([facility]) Pt is under the care of Nephrology dr Perry, case discussed with him over the phone Last BMP Lab Results Component Value Date NA 137 07/02/2024 NA 136 06/25/2024 K 4.1 07/02/2024 K 4.6 06/25/2024 CL 98 07/02/2024 CL 105 06/25/2024 BUN 40 (H) 07/02/2024 BUN 31 (H) 06/25/2024 CREATININE 2.15 (H) 07/02/2024 CREATININE 1.81 (H) 06/25/2024 Dr. Perry already ordered repeat * Assessment & Plan Note - Devin Rodriguez MD - 11/24/2024 3:43 PM EDT Associated Problem(s): Primary hypertension Elevated Hypertensive urgency , unable to take POs due to N/V did not take his meds this morning despite Zofran. Pt c/o chest discomfort (EKG Normal) Plan: ER evaluation Once tolerating POs will need Pt is supposed to be on Losartan 100 mg po daily , Coreg 25 mg po BID, Amlodipine 10 mg po daily and Furosemide 20 mg po daily Pt recently seen by Dr Orlando Crane * Assessment & Plan Note - Devin Rodriguez MD - 11/24/2024 3:41 PM EDT Associated Problem(s): Hematuria Pt has had 3 consecutive UA with Large Blood, probably some of it due to Proteinuria, nevertheless he might benefit from further work up Etiology? Plan: Send Urine for citology CT abdominal/Pelvis rule out Nephrolithiasis Urology consult documented in this encounter Plan of Treatment Upcoming Encounters Date Type Department Care Team (Late st Contact Info) Description 12/02/2024 11:00 AM EDT Office Visit [facility] MEDICINE [address] [place] [address] [facility] [address] [place] [address] Scheduled Orders Name Type Priority Associated Diagnoses Orde r Schedule Urinalysis Complete Lab Routine Asymptomatic microscopic hematuria Expected: 11/24/2024, Expires: 11/24/2025 CT Abdomen Pelvis w/o Contrast Imaging Routine Asymptomatic microscopic hematuria Ordered: 11/24/2024 Metanephrines, Fractionated, Free, LC/MS/MS, Plasma Lab Routine Primary hypertension Expected: 11/24/2024 (Approximate), Expires: 11/24/2025 Metanephrines, Fractionated, LC/MS/MS, 24-Hour Urine Lab Routine Primary hypertension Expected: 11/24/2024 (Approximate), Expires: 11/24/2025 Cytology, urine Pathology and Cytology Routine Asymptomatic microscopic hematuria Expected: 11/24/2024 (Approximate), Expires: 11/24/2025 Iron And Total Iron Binding Capacity Lab Routine Anemia in other chronic diseases classified elsewhere Expected: 11/24/2024, Expires: 11/24/2025 Ferritin Lab Routine Anemia in other chronic diseases classified elsewhere Expected: 11/24/2024, Expires: 11/24/2025 Vitamin B12/Folate, Serum Panel Lab Routine Anemia in other chronic diseases classified elsewhere Expected: 11/24/2024, Expires: 11/24/2025 Scheduled Referrals Name Type Priority Associated Diagnoses Orde r Schedule Referral to Urology Outpatient Referral Routine Asymptomatic microscopic hematuria Expected: 11/24/2024 (Approximate), Expires: 11/24/2025 documented as of this encounter Procedures Procedure Name Priority Date/Time Associated Diagnosis Comments POCT URINALYSIS DIPSTICK Routine 11/24/2024 3:51 PM EDT Asymptomatic microscopic hematuria POCT LEONOR-14 URINE DRUG SCREEN Routine 11/24/2024 3:47 PM EDT Asymptomatic microscopic hematuria ECG 12-LEAD Routine 11/24/2024 3:45 PM EDT Primary hypertension POCT GLYCATED HEMOGLOBIN, TOTAL Routine 11/24/2024 3:17 PM EDT Type 2 diabetes mellitus with hyperglycemia, without long-term current use of insulin ([facility]) POCT GLUCOSE Routine 11/24/2024 3:15 PM EDT Type 2 diabetes mellitus with hyperglycemia, without long-term current use of insulin ([facility]) documented in this encounter Results * (ABNORMAL) POCT Urinalysis (11/24/2024 3:51 PM EDT) Color, UA Yellow Clarity, UA Clear Glucose, UA 1+ 70+ Comment:100mg Bilirubin, UA Trace Comment:small Ketones, UA Positive Comment:trace Spec Grav, UA 1.025 Blood, UA Positive(A) Negative, None Detected Comment:Large pH, UA 6.0 Protein, UA 2+ 125++ Comment:>=300 mg Urobilinogen, UA 1.0 Leukocytes, UA Negative Negative, Rare, Trace Nitrite, UA Negative Negative, None Detected Urine 11/24/2024 3:51 PM EDT Result [facility] Devin Rodriguez MD POINT OF CARE TEST EN TER/EDIT ORDERABLES Final Result * (ABNORMAL) POCT LEONOR-14 Urine Drug Screen (11/24/2024 3:47 PM EDT) THC Positive(A) Negative Cocaine Screen, Urine Negative Negative Opiate Screen, Urine Negative Negative Methamphetamine Screen Urine Negative Negative Amphetamine Screen, Urine Negative Negative Benzodiazepines Screen, Urine Negative Negative Barbiturate Screen, Urine Negative Negative Methadone Screen, Urine Negative Negative Buprenophine Screen, Urine Negative Negative TCA, Urine Positive(A) Negative MDMA Urine Negative Negative ng/mL Oxycodone Screen, Urine Negative Negative Phencyclidine (PCP), Urine Negative Negative Propoxyphene, Urine Negative Negative Fentanyl, Urine Negative Negative QC Media Lot # [id number] U Lot# Expiration Date Urine Urine specimen obtained by clean catch procedure / Unknown 11/24/2024 3:47 PM EDT Result [facility] Devin Rodriguez MD POINT OF CARE TEST EN TER/EDIT ORDERABLES Final Result * ECG 12 lead (11/24/2024 3:45 PM EDT) Narrative Devin Valiente MD - 11/24/2024 3:45 PM EDT NSR, HR 72 bpm, no acute st t changes Result [facility] Devin Rodriguez MD ECG ORDERABLES Final Result * (ABNORMAL) POCT Hgb A1c (11/24/2024 3:17 PM EDT) Pathologist [facility] Hemoglobin A1C 7.0(A) 4.0 - 5.7 % QC Media Lot # [id number] Lot# Expiration Date 961,027 Blood 11/24/2024 3:17 PM EDT Result [facility] Devin Rodriguez MD POINT OF CARE TEST EN TER/EDIT ORDERABLES Final Result * POCT Glucose (11/24/2024 3:15 PM EDT) Glucose Blood, POC 120 60 - 200 mg/dL QC Media Lot # [id number] Lot# Expiration Date ,[id number] Blood Capillary blood specimen / Unknown 11/24/2024 3:15 PM EDT Devin Rodriguez MD POINT OF CARE TEST EN TER/EDIT ORDERABLES Final Result documented in this encounter Visit Diagnoses Diagnosis Hypertensive urgency- Primary Primary hypertension Unspecified essential hypertension Asymptomatic microscopic hematuria 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 2 diabetes mellitus (CMS/HCC) (CMS/HCC) Generalized anxiety disorder Type 2 diabetes mellitus with hyperglycemia, without long-term current use of insulin (CMS/HCC) Anemia in other chronic diseases classified elsewhere documented in this encounter Additional Health Concerns Assessment Noted Time PHQ-9 Depression Total Score: 0 01/27/20 24 3:31 PM EST documented as of this encounter Care Teams Cutter Brake Lining Relationship Specialty Start Date End Date Leanne Alcazar FNP [address] [place] [id number] PCP - General Family Medicine 12/13/21 documented as of this encounter
[2024-11-24 16:20] LABS: MANUAL DIFF FLAG NO
[2024-11-24 16:25] LABS: Hematocrit 31.0 % (42.0-52.0); Hemoglobin 10.6 g/dl (14.0-18.0); Imm Gran Abs Auto 0.02 X10*3/uL (0.00-0.03); Imm Gran Pct Auto 0.3 % (0.0-0.4); Lymphocytes Absolute Auto 1.5 X10*3/uL (1.2-4.9); Mean Corpuscular HGB Conc 34.2 g/dl (31.0-36.0); Mean Corpuscular Hemoglobin 28.4 pg (27.0-33.0); Mean Corpuscular Volume 83.1 fL (80.0-98.0); NRBC Abs Auto 0.000 X10*3/uL (0.0-0.012); NRBC Pct Auto 0.0 /100WBC (0.0-0.2); Platelet Count 234 X10*3/uL (160-400); Red Blood Count 3.73 X10*6/uL (4.60-5.80); White Blood Count 7.7 X10*3/uL (4.8-10.8)
[2024-11-24 16:41] LABS: Alanine Aminotransferase 15 U/L (0-40); Albumin Level 3.7 g/dL (3.5-5.0); Alkaline Phosphatase 83 U/L (39-117); Anion Gap 12 (12-20); Anion Gap 13 (12-20); Aspartate Amino Transferase 21 U/L (5-37); Blood Urea Nitrogen 22 mg/dL (9-16); Calcium 9.0 mg/dL (8.4-10.2); Carbon Dioxide 26 mmol/L (22-29); Carbon Dioxide 27 mmol/L (22-29); Chloride 104 mmol/L (96-108); Estimated Glomerular Filt Rate 40; Lipase 48 U/L (8-78); Potassium 3.7 mmol/L (3.3-5.1); Sodium 139 mmol/L (135-145); Total Protein 6.4 g/dL (6.5-8.0)
[2024-11-24 16:59] LABS: Anion Gap 12 (12-20); Blood Urea Nitrogen 22 mg/dL (9-16); Calcium 8.9 mg/dL (8.4-10.2); Carbon Dioxide 27 mmol/L (22-29); Chloride 104 mmol/L (96-108); Estimated Glomerular Filt Rate 40; Potassium 3.7 mmol/L (3.3-5.1); Sodium 139 mmol/L (135-145)
--- OUTSIDE RECORDS SUMMARY | 2024-11-24 17:00 | XMS_ITS | Encounter Summary ---
Author Organization [employer] Address [address] [facility] 7[address] [place] [address] Care Team Providers Care Ball Warper Tender Name Role Phone Ottoniel [facility] Primary Care Provider [phone] Encounter Details Date Type Department Care Team (Late st Contact Info) Description 11/24/2024 Orders Only [facility] MEDICINE [address] [place], [place] [phone] [facility] [address] [place], [place] [phone] Social History Tobacco Use Types Packs/Day Years [...] Upcoming Encounters Date Type Department Care Team ([facility] st Contact Info) Description 12/02/2024 11:00 AM EDT Office Visit [facility] MEDICINE [address] [place], [place] [phone] [facility] [address], [place] [phone] Pending Results Name Type Priority Associated Diagnoses Date /Time Basic Metabolic Panel Lab Routine 2:03 PM EDT documented as of this encounter Procedures Procedure Name Priority Date/Time Associated Diagnosis Comments BASIC METABOLIC PANEL Routine 11/24/2024 2:03 PM EDT BASIC METABOLIC PANEL Routine 11/24/2024 2:03 PM EDT BASIC METABOLIC PANEL Routine 11/24/2024 2:03 PM EDT documented in this encounter Results * (ABNORMAL) Basic Metabolic Panel (11/24/2024 2:03 PM EDT) Sodium 139 135 - 145 mmol/L [facility] Potassium 3.7 3.3 - 5.1 mmol/L [facility] Chloride 104 96 - 108 mmol/L [facility] Carbon Dioxide 26 22 - 29 mmol/L [facility] Anion Gap 13 12 - 20 [facility] Urea Nitrogen (BUN) 22(H) 9 - 16 mg/dL [facility] Creatinine, Serum 1.97(H) 0.5 - 1.4 mg/dL [facility] Estimated Glomerular Filt Rate 40 [facility] Comment:Chronic Kidney Disea se: Estimated GFR < 60 mL/min/[id number] Kidney Disease: Estimated GFR < 15 mL/min/1.73m2 Glucose 123(H) 60 - 115 mg/dL [facility] Calcium 9.0 8.4 - 10.2 mg/dL [facility] 11/24/2024 2:03 PM EDT 11/24/2024 4:09 PM EDT Generic External Data Provider LAB BLOOD ORDERAB LES Final Result [facility] [address] [place] [address] [phone] * (ABNORMAL) Basic Metabolic Panel (11/24/2024 2:03 PM EDT) Sodium 139 135 - 145 mmol/L [facility] Potassium 3.7 3.3 - 5.1 mmol/L [facility] Chloride 104 96 - 108 mmol/L [facility] Carbon Dioxide 27 22 - 29 mmol/L [facility] Anion Gap 12 12 - 20 [facility] Urea Nitrogen (BUN) 22(H) 9 - 16 mg/dL [facility] Creatinine, Serum 1.97(H) 0.5 - 1.4 mg/dL [facility] Estimated Glomerular Filt Rate 40 [facility] Comment:Chronic Kidney Disea se: Estimated GFR < 60 mL/min/[id number] Kidney Disease: Estimated GFR < 15 mL/min/1.73m2 Glucose 123(H) 60 - 115 mg/dL [facility] Calcium 9.0 8.4 - 10.2 mg/dL [facility] 11/24/2024 2:03 PM EDT 11/24/2024 4:09 PM EDT [facility] LAB BLOOD ORDERABLES Final Re sult [facility] [address] [place] [address] [phone] documented in this encounter Visit Diagnoses Not on filedocumented in this encounter Additional Health Concerns Assessment Noted Time PHQ-9 Depression Total Score: 0 01/27/20 24 3:31 PM EST documented as of this encounter Care Teams Ball Warper Tender Relationship Specialty Start Date End Date VincennesLeanne FNP [address] [place] [phone] PCP - General Family Medicine 12/13/21 documented as of this encounter
--- OUTSIDE RECORDS SUMMARY | 2024-11-24 17:00 | XMS_ITS | Encounter Summary ---
Author Organization [facility] Address [address] [place] [phone] Phone Care Team Providers Care Service Car Operator Name Role Phone Tete Sutherland MD Primary Care Provider [phone] Encounter Details Date Type Department Care Team (Late st Contact Info) Description 05/26/2014 Documentation [facility] Family Medicine [address] [place] [address] Family Medicine, Physician [address] [place], [place] [phone] Social History Tobacco Use Types Packs/Day Years [...] filedocumented in this encounter Care Teams Service Car Operator Relationship Specialty Start Date End Date Tete Sutherland MD [address] [place] [address] [place] [address] PCP - General 10/12/16 08/27/22 documented as of this encounter
--- OUTSIDE RECORDS SUMMARY | 2024-11-24 17:00 | XMS_ITS | Encounter Summary ---
Author Organization [employer] Address [address] [facility] [address] [place] [address] Care Team Providers Care Supervisor Asphalt Paving Name Role Phone Ottoniel [facility] Primary Care Provider [phone] Reason for Visit * Reason Onset Date Comments ER Follow-up 11/24/2024 Encounter Details Date Type Department Care Team ([facility] st Contact Info) Description 11/24/2024 Telephone [facility] MEDICINE [address] [place], [place] [phone] [facility] [address] [place], [place] [phone] ER Follow-up Social History Tobacco Use Types Packs/Day Years [...] is your housing situation today? I have feltonhaydee montano 01/28/[address] you [...] encounter Miscellaneous Notes * Telephone Encounter - Cydney Kay RN - 11/24/2024 4:29 PM EDT Pt presented for sick on site 11/24/24 and found to be in hypertensive emergency, went by ambulance to [facility] ED. Please call for status check. documented in this encounter Plan of Treatment Upcoming Encounters Date Type Department Care Team (Late st Contact Info) Description 12/02/2024 11:00 AM EDT Office Visit [facility] MEDICINE [address] [place] [address] Leanne Alcazar FNP [address] [place] [address] documented as of this encounter Visit Diagnoses Not on filedocumented in this encounter Additional Health Concerns Assessment Noted Time PHQ-9 Depression Total Score: 0 01/27/20 24 3:31 PM EST documented as of this encounter Care Teams Supervisor Asphalt Paving Relationship Specialty Start Date End Date Leanne Alcazar FNP [address] [place] [address] PCP - General Family Medicine 12/13/21 documented as of this encounter
--- OUTSIDE RECORDS SUMMARY | 2024-11-24 17:00 | XMS_ITS | Encounter Summary ---
Author Organization [employer] Address [address] [facility] 7t [place] [address] Care Team Providers Care Senior Cyber Security Analyst Name Role Phone Leanne Alcazar SENIOR INTERACTION DESIGNER Primary Care Provider [phone] Encounter Details Date Type Department Care Team (Latest Contact Info) Description 11/19/2024 Travel Social History Tobacco Use Types Packs/Day [...] Description 12/02/2024 11:00 AM EDT Office Visit [facility] [address] [place] [address] Leanne Alcazar FNP [address] [place] [address] documented as of this encounter Visit Diagnoses Not on filedocumented in this encounter Additional Health Concerns Assessment Noted Time PHQ-9 Depression Total Score: 0 01/27/20 24 3:31 PM EST documented as of this encounter Care Teams Senior Cyber Security Analyst Relationship Specialty Start Date End Date Leanne Alcazar FNP [address] [place] [address] PCP - General Family Medicine 12/13/21 documented as of this encounter
--- OUTSIDE RECORDS SUMMARY | 2024-11-24 17:00 | XMS_ITS | Encounter Summary ---
Author Organization [facility] Address [address] [place] [address] Phone Care Team Providers Care Puppet Engineer Name Role Phone Tete Sutherland MD Primary Care Provider [phone] Encounter Details Date Type Department Care Team (Late st Contact Info) Description 10/18/2016 Conversion Encounter [facility] [place] [address] [place] [address] Social History Tobacco Use Types Packs/Day Years [...] on filedocumented in this encounter Care Teams Puppet Engineer Relationship Specialty Start Date End Date Tete Sutherland MD [address] [place] [address] PCP - General 10/12/16 08/27/22 documented as of this encounter
--- OUTSIDE RECORDS SUMMARY | 2024-11-24 17:00 | XMS_ITS | Encounter Summary ---
Author Organization [employer] Address [address] [facility] 7t [place] [address] Care Team Providers Care Wax Blender Name Role Phone Leanne Alcazar FOAM MOLDER Primary Care Provider Encounter Details Date Type Department Care Team (Latest Contact Info) Description 11/24/2024 Travel Social History Tobacco Use Types Packs/Day [...] Description 12/02/2024 11:00 AM EDT Office Visit [facility] [address] [place] [address] Leanne Alcazar FNP [address] [place] [address] documented as of this encounter Visit Diagnoses Not on filedocumented in this encounter Additional Health Concerns Assessment Noted Time PHQ-9 Depression Total Score: 0 01/27/20 24 3:31 PM EST documented as of this encounter Care Teams Wax Blender Relationship Specialty Start Date End Date Leanne Alcazar FNP [address] [place] [address] PCP - General Family Medicine 12/13/21 documented as of this encounter
--- OUTSIDE RECORDS SUMMARY | 2024-11-24 17:00 | XMS_ITS | Encounter Summary ---
Author Organization [employer] Address [address] [facility] 7t [place] [address] Care Team Providers Care Manager Solution Name Role Phone Leanne Alcazar AD OPERATIONS INTERN Primary Care Provider [phone] Reason for Visit * Reason Onset Date Comments clearance letter 11/23/2024 Encounter Details Date Type Department Care Team ([facility] Contact Info) Description 11/23/2024 Telephone [facility] [address] [place], [place] [phone] Brielle Zamora RN [address] [place] [address] clearance letter Social History Tobacco Use Types Packs/Day Years [...] encounter Miscellaneous Notes * Telephone Encounter - Brielle Zamora RN - 11/23/2024 1:01 PM EDT Pt. Walked in requesting appointment for clearance to return back to work, as he submitted the excuse letter given to him at walk in appointment 11/19/24 and pt. Now states job is requiring a new letter to be cleared to return. Pt. Reports he is feeling well enough to return to work. Pt. Agrees to appointment tomorrow 11/24/[address] Lyman documented in this encounter Plan of Treatment Upcoming Encounters Date Type Department Care Team (Late st Contact Info) Description 12/02/2024 11:00 AM EDT Office Visit [facility] [address] [place] [address] Leanne Alcazar FNP [address] [place] [address] documented as of this encounter Visit Diagnoses Not on filedocumented in this encounter Additional Health Concerns Assessment Noted Time PHQ-9 Depression Total Score: 0 01/27/20 24 3:31 PM EST documented as of this encounter Care Teams Manager Solution Relationship Specialty Start Date End Date Leanne Alcazar FNP [address] [place] [address] PCP - General Family Medicine 12/13/21 documented as of this encounter
--- OUTSIDE RECORDS SUMMARY | 2024-11-24 17:00 | XMS_ITS | Clinical Summary ---
Author Organization [facility] Address [address] [place] [address] Phone Care Team Providers Care Motor Equipment Sergeant Name Role Phone Unavailable Primary Care Provider [...]
--- OUTSIDE RECORDS SUMMARY | 2024-11-24 17:01 | XMS_ITS | Encounter Summary ---
Author Organization [facility] Address [address] [place] [address] Phone Care Team Providers Care Satellite Instruction Facilitator Name Role Phone Tete Sutherland MD Primary Care Provider Encounter Details Date Type Department Care Team (Late st Contact Info) Description 07/21/2012 Documentation [facility] [place] Family Medicine [address] [place] [address] Family Medicine, Physician [address] [place], [place] [phone] Social History Tobacco Use Types Packs/Day Years [...] on filedocumented in this encounter Care Teams Satellite Instruction Facilitator Relationship Specialty Start Date End Date Tete Sutherland MD [address] [place] [address] [place] [address] PCP - General 10/12/16 08/27/22 documented as of this encounter
--- OUTSIDE RECORDS SUMMARY | 2024-11-24 17:01 | XMS_ITS | Encounter Summary ---
Author Organization [employer] Address [address] [facility] 7t [place] [address] Care Team Providers Care Transportation Attendant Name Role Phone [facility] Primary Care Provider [phone] Amari David RN Unavailable [phone] Rafaela Tovar Unavailable Reason for Visit * Reason Onset Date Comments HDF 05/21/2022 Encounter Details Date Type Department Care Team (Late st Contact Info) Description 05/21/2022 Telephone [facility] MEDICINE [address] [place] [address] [facility], [facility] [address] [place] [address] [facility] Social History Tobacco Use Types Packs/Day Years [...] symptoms) Patient hospitalized at [facility]. Patient was admitted on 05/20/2022 and discharged on 05/21/2022. The patient was diagnosed with Virus. Patient advised will forward to [facility] Clinical Coordinators for follow up and appointment scheduling. Please contact Pt at [phone] documented in this encounter Plan of Treatment Upcoming Encounters Date Type Department Care Team (Late st Contact Info) Description 12/02/2024 11:00 AM EDT Office Visit [facility] [address] [place] [address] Leanne Alcazar FNP [address] [place] [address] documented as of this encounter Visit Diagnoses Not on filedocumented in this encounter Care Teams Transportation Attendant Relationship Specialty Start Date End Date Leanne Alcazar FNP [address] [place] [address] PCP - General Family Medicine 12/13/21 Amari David, MITCH [address] [place] [address] Registered Nurse Family Medicine 10/07/24 11/17/24 Rafaela Tovar 10/07/24 11/17/24 documented as of this encounter
--- OUTSIDE RECORDS SUMMARY | 2024-11-24 17:01 | XMS_ITS | Encounter Summary ---
Author Organization [facility] Address [address] [place] [address] Phone Care Team Providers Care Mortgage Professional Name Role Phone Tete Sutherland MD Primary Care Provider Encounter Details Date Type Department Care Team (Late st Contact Info) Description 10/21/2012 Documentation [facility] [place] [address] [place] [address] Family Medicine, Physician [address] [place], [place] [phone] Social History Tobacco Use Types Packs/Day Years [...] on filedocumented in this encounter Care Teams Mortgage Professional Relationship Specialty Start Date End Date Tete Sutherland MD [address] [place] [address] [place] [address] PCP - General 10/12/16 08/27/22 documented as of this encounter
--- OUTSIDE RECORDS SUMMARY | 2024-11-24 17:01 | XMS_ITS | Encounter Summary ---
Author Organization [facility] Address [address] [place] [address] Phone Care Team Providers Care Music Professionals Name Role Phone Tete Sutherland MD Primary Care Provider Encounter Details Date Type Department Care Team (Late st Contact Info) Description 11/13/2012 Documentation [facility] [place] Family Medicine [address] [place] [address] Family Medicine, Physician [address] [place], [place] [phone] Social History Tobacco Use Types Packs/Day Years [...] on filedocumented in this encounter Care Teams Music Professionals Relationship Specialty Start Date End Date Tete Sutherland MD [address] [place] [address] [place] [address] PCP - General 10/12/16 08/27/22 documented as of this encounter
--- OUTSIDE RECORDS SUMMARY | 2024-11-24 17:01 | XMS_ITS | Encounter Summary ---
Author Organization [employer] Address [address] [facility] 7t [place] [address] Care Team Providers Care Laundry Sorter Name Role Phone [facility] Primary Care Provider [phone] Amari David RN Unavailable [phone] Rafaela Tovar Unavailable Reason for Visit * Reason Onset Date Comments Nurse Triage 08/15/2023 Encounter Details Date Type Department Care Team (Late st Contact Info) Description 08/15/2023 Telephone [facility] [address] [place], [place] [phone] [facility] [address] [place] [address] Nurse Triage Social History Tobacco Use Types [...] blood sugars were WNL. Pt went to [facility] ED 08/14/23 in the evening [...] past 3 days, pt was seen at [facility] on 08/14 for nausea/vomiting. Pt has not eaten in 28 hours. The caller accepted this outcome Please contact pt at [phone] documented in this encounter Plan of Treatment Upcoming Encounters Date Type Department Care Team ([facility] st Contact Info) Description 12/02/2024 11:00 AM EDT Office Visit [facility] MEDICINE [address] [place] [address] Leanne Alcazar FNP [address] [place] [address] documented as of this encounter Visit Diagnoses Not on filedocumented in this encounter Additional Health Concerns Assessment Noted Time PHQ-9 Depression Total Score: 24 023 10:42 AM EST documented as of this encounter Care Teams Laundry Sorter Relationship Specialty Start Date End Date Leanne Alcazar FNP [address] [place] [address] PCP - General Family Medicine 12/13/21 Amari David, MITCH [address] [place] [address] Registered Nurse Family Medicine 10/07/24 11/17/24 Rafaela Tovar 10/07/24 11/17/24 documented as of this encounter
--- OUTSIDE RECORDS SUMMARY | 2024-11-24 17:01 | XMS_ITS | Encounter Summary ---
Author Organization [facility] Address [address] [place] [address] Phone Care Team Providers Care Hardboard Press Operator Name Role Phone Tete Sutherland MD Primary Care Provider Encounter Details Date Type Department Care Team (Late st Contact Info) Description 04/08/2014 Documentation [facility] [place] Family Medicine [address] [place] [address] Family Medicine, Physician [address] [place], [place] [phone] Social History Tobacco Use Types Packs/Day Years [...] on filedocumented in this encounter Care Teams Hardboard Press Operator Relationship Specialty Start Date End Date Tete Sutherland MD [address] [place] [address] [place] [address] PCP - General 10/12/16 08/27/22 documented as of this encounter
--- OUTSIDE RECORDS SUMMARY | 2024-11-24 17:01 | XMS_ITS | Encounter Summary ---
Author Organization [facility] Address [address] [place] [address] Phone Care Team Providers Care Fruit Grading Supervisor Name Role Phone Tete Sutherland MD Primary Care Provider [phone] Encounter Details Date Type Department Care Team (Late st Contact Info) Description 10/22/2012 Documentation [facility] [place] [address] [place] [address] Family Medicine, Physician [address] [place], [place] [phone] Social History Tobacco Use Types Packs/Day Years [...] on filedocumented in this encounter Care Teams Fruit Grading Supervisor Relationship Specialty Start Date End Date Tete Sutherland MD [address] [place] [address] [place] [address] PCP - General 10/12/16 08/27/22 documented as of this encounter
--- OUTSIDE RECORDS SUMMARY | 2024-11-24 17:01 | XMS_ITS | Clinical Summary ---
Author Organization [employer] Address [address] [place] [address] Care Team Providers Care Guinea Pig Breeder Name Role Phone Leanne Alcazar TREE THINNER Primary Care Provider [phone] Allergies No known active allergies Medications * [...] 22 Active Blood Glucose Monitoring Suppl (FreeStyle [place] Lite) w/Device kit TEST BLOOD SUGAR ONE OR TWO TIMES DAILY DIRECTED 12/14/19 22 Active TRUEplus Lancets 33G miscIndications :Type 2 diabetes mellitus with hyperglycemia, without long-term current use of insulin ([facility]) TEST BLOOD SUGAR 4 times daily 120 each 1 01/29/20 23 Active glucose blood test stripIndication s:Type 2 diabetes mellitus with hyperglycemia, without long-term current use of insulin ([facility]) Use as directed to check blood sugar four times daily 100 each 12 01/29/20 23 Active Continuous Glucose Dance Historian (FreeStyle Ave 2 Hilliards) deviceIndicatio ns:Type 2 diabetes mellitus with hyperglycemia, without long-term current use of insulin (CMS/[facility]) Scan sensor every 8 hours 1 each 06/20/19 24 Active glucose 4 g chewable tabletIndicatio ns:Type 2 diabetes mellitus with hypoglycemia without coma, without long-term current use of insulin (CMS/[facility]) Chew 4 tablets (16 g) if needed for low blood sugar. 50 tablet 12 12/02/19 24 025 Active Alcohol Swabs (Alcohol Prep) 70 % pads USE TO CLEAN SKIN BEFORE testing blood SUGAR OR INJECTION 100 each 5 12/06/19 24 Active Lantus SoloStar 100 UNIT/ML pen Inject 10 Units under the skin Once per day. 12/02/19 24 Active LORazepam (Ativan) 1 MG tablet Take 1 tablet by mouth 2 times daily. 12/21/19 24 Active insulin pen needle (Sure Comfort Pen [place]) 31G x 5 mm miscIndications :Type 2 diabetes mellitus with hyperglycemia, without long-term current use of insulin ([facility]) USE DAILY DIRECTED 100 each 11 04/10/19 25 Active amLODIPine (Norvasc) 10 MG tablet Take 1 tablet (10 mg) by mouth Once per day. 90 tablet 07/09/19 25 Active carvedilol (Coreg) 25 MG tablet TAKE 1 TABLET BY MOUTH TWICE A DAY 180 tablet 07/30/19 25 Active Continuous Glucose Sensor (FreeStyle Ave 2 Sensor) miscIndications :Type 2 diabetes mellitus with hyperglycemia, without long-term current use of insulin (CMS/[facility]) USE DIRECTED, CHANGE EVERY 14 DAYS 2 each 3 09/08/19 25 Active Jardiance 10 MG TAKE 1 TABLET BY MOUTH EVERY DAY 30 tablet 11 09/17/19 25 Active escitalopram (Lexapro) 10 MG tabletIndicatio ns:Generalized anxiety disorder TAKE 1 TABLET BY MOUTH EVERY DAY 30 tablet 2 11/17/19 25 Active amitriptyline (Elavil) 10 MG tablet Take 1 tablet (10 mg) by mouth at bedtime. 30 tablet 2 11/20/19 25 026 Active diphenhydrAMINE (BENADryl) 25 MG tablet Take 1 tablet (25 mg) by mouth every 6 (six) hours if needed for nausea or vomiting. 30 tablet 1 11/20/19 25 025 Active ondansetron (Zofran) 4 MG tabletIndicatio ns:Nausea Take 1 tablet (4 mg) by mouth every 8 (eight) hours if needed for nausea or vomiting. 20 tablet 1 11/20/19 25 Active esomeprazole (NexIUM) [address] capsule Take 1 capsule by mouth 2 times daily. 11/20/19 25 Active losartan (Cozaar) 100 MG tablet Take 100 mg by mouth Once per day. 08/14/19 Active ondansetron (Zofran) 4 MG tabletIndicatio ns:Nausea TAKE 2 TABLETS BY MOUTH EVERY 8 HOURS NEEDED FOR NAUSEA AND VOMITING 30 tablet 03/31/19 025 Discontinued(Re order (will not trigger notification to Pharmacy)) escitalopram (Lexapro) 10 MG tabletIndicatio ns:Generalized anxiety disorder TAKE 1 TABLET BY MOUTH EVERY DAY 30 tablet 2 07/19/19 25 025 Discontinued pantoprazole (ProtoNix) 40 MG EC tabletIndicatio ns:Epigastric pain TAKE 1 TABLET BY MOUTH EVERY MORNING BEFORE BREAKFAST DO NOT BREAK, CRUSH, DISSOLVE OR CHEW 90 tablet 08/27/19 025 Discontinued(Th erapy completed) Active Problems Problem Noted Date Diagnosed Date Hematuria 11/24/2024 Assessment & Plan (11/24/2024 4:23 PM EDT): Pt has had 3 consecutive UA with Large Blood, probably some of it due to Proteinuria, nevertheless he might benefit from further work up Etiology? Plan: Send Urine for citology CT abdominal/Pelvis rule out Nephrolithiasis Urology consult Hypertensive urgency 11/24/2024 Assessment & Plan (11/24/2024 4:20 PM EDT): Patient with difficult to control hypertension On [...] and Vomiting so he can tolerate POs Other specified anemias 11/24/2024 Assessment & Plan (11/24/2024 4:34 PM EDT): Pt has anemia Lab Results Component Value Date WBC 7.7 11/24/2024 HGB 10.6 (L) 11/24/2024 HCT 31.0 (L) 11/24/2024 MCV 83.1 11/24/2024 PLT 234 11/24/2024 Etiology? Pt with CKD stage 2, might be a contributing factor Plan: Obtain Iron studies, B12 and Folate to begin with F/u with PCP after initial testing Cyclical vomiting 11/19/2024 Nausea 03/02/2024 Epigastric pain 03/02/2024 Assessment & Plan (03/02/2024 2:18 PM EST): I went up on his pantoprazole to 40mg daily Zofrna PRN Patient has upcoming GI appointment on 03/16/23 I printed letter and advise not to miss his appointment Acute kidney injury superimposed on CKD ([facility] ) 03/02/2024 Assessment & Plan (03/02/2024 2:17 PM EST): Drink plenty of water Avoid nephrotoxic medication Work on glucose and blood pressure control 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 with election judge 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 2 diabetes mellitus ([facility] /[facility]) 12/02/2023 Assessment & Plan (11/24/2024 4:30 PM EDT): Pt is under the care of Nephrology dr Perry, case discussed with him over the phone Last BMP Lab Results Component Value Date NA 137 07/02/2024 NA 136 06/25/2024 K 4.1 07/02/2024 K 4.6 06/25/2024 CL 98 07/02/2024 CL 105 06/25/2024 BUN 40 (H) 07/02/2024 BUN 31 (H) 06/25/2024 CREATININE 2.15 (H) 07/02/2024 CREATININE 1.81 (H) 06/25/2024 Dr. Perry already ordered repeat Assessment & Plan (03/02/2024 2:16 PM EST): [...] consulting health care provider Assessment & Plan (11/24/2024 4:22 PM EDT): Elevated Hypertensive urgency , unable to take [...] Pt recently seen by Dr Orlando Crane Assessment & Plan (03/02/2024 2:19 PM EST): [...] Screening: RPR negative 12/2021 Vision Exam: 12/2021, [place] Dental Care: Discuss at follow up Immunizations: [...] 08/2022 Risk 0 Eye Exam: Referred to [facility] Eye Care; followed by outside [...] until morning FBG < 130 [address]erral [address] [facility] DM educator Assessment & Plan [...] follow up Eye Exam: 12/2021, completed in [place] Lipid panel: 12/2021 WNL, order repeat at [...] therapy was not helpful Assessment & Plan (11/24/2024 4:29 PM EDT): Pt tells me he has a psychotherapist but not a psychiatric prescriber. He uses Hydroxyzine prn for anxiety. Once discharged from Hospital might need referral to Psychiatric prescriber. Pt reports intermittent episodes of severe anxiety, associated with elevated blood pressure and intermittent palpitations Case discussed with his Grinder Gear , I will order Plasma Metanephrines and a 24 urine collection first , pending that further evaluation Since patient is on a beta catarino and this cannot be safely held due to severe hypertension. Interpretation of initial test results will need to be done with that in mind. Pt to come back and see PCP in 1 week Assessment & Plan (02/05/2023 9:24 PM EST): Pt declines maintenance pharmacotherapy or referral to Will trial PRN hydroxyzine for acute anxiety. Reviewed administration, risks, side effects Contact HC if sx worsen or experiencing thoughts of SI or self harm. Pt has [facility] crisis contact information Assessment & Plan (11/18/2022 12:46 PM EDT): STOP sertraline due to s/e Declines N referral Contact HC if sx worsen or experiencing thoughts of SI or self harm. Pt has [facility] crisis contact information Assessment & [...] Encounters Date Type Department Care Team Description 11/24/2024 3:00 PM EDT Office Visit [facility] MEDICINE [address] [place] [phone] Devin Valiente MD Hypertensive urgency (Primary Dx); Primary hypertension; Asymptomatic microscopic hematuria; 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 2 diabetes mellitus ([facility]/H[facility]) ([facility]); Generalized anxiety disorder; Type 2 diabetes mellitus with hyperglycemia, without long-term current use of insulin ([facility]); Anemia in other chronic diseases classified elsewhere 11/24/2024 Orders Only [facility] MEDICINE [address] [place] [phone] Leanne Alcazar [facility] 11/24/[address] [address] [place] [facility] ER Follow-up 11/24/2024 Travel 11/23/[address] [address] Brielle Zamora RN clearance letter 11/19/2024 3:40 PM EDT Office Visit [facility] WALK-IN CENTER [address] [place] [phone] Vivian Ham DO Cyclical vomiting (Primary Dx); Essential hypertension; Nausea; Viral URI 11/19/2024 Travel 11/18/[address] [address] [place] [facility] ER Follow-up 11/17/2024 Patient Outreach [address] [address] [place] [facility] Care Coordination (C3 CM-W Rafaela Tovar telephone call outreach) 11/15/[address] [address] [place] [facility] Generalized anxiety disorder 11/10/2024 Patient Outreach [address] [phone] [place] Leanne [facility] Care Coordination (C3 CM-CHW Rafaela Tovar telephone call outreach) 10/29/2024 Patient Outreach [address] [address] [place] [facility] Care Coordination (C3 CM-W Rafaela Tovar telephone call outreach) 10/22/2024 Patient Outreach [address] [address] Leanne Alcazar [facility] Care Coordination (C3 CM-[facility] Rafaela Tovar telephone call outreach) 10/15/2024 Patient Outreach [facility] [address] [place] [address] Leanne Alcazar [facility] Care Coordination (C3 CM-[facility] Rafaela Tovar telephone call outreach) 10/07/2024 Patient Outreach [facility] [address] [place] [address] Leanne Alcazar [facility] Care Coordination (C3 CM-[facility] Tovar telephone call outreach) 10/07/2024 Patient Outreach [facility] [address] [place] [address] [place] [facility] Care Coordination (C3 CM-[facility] Rafaela Tovar chart review) 10/07/2024 Patient Outreach [address] [address] [place] [facility] Care Coordination (C3CM- chart review) 10/07/2024 Patient Outreach [facility] [address] [place] [address] Leanne Alcazar [facility] 09/15/[address] [facility] MEDICINE [address] [place] [phone] Yamel Monroy FNP 09/03/[address] [facility] MEDICINE [address] [place] [phone] [place] [facility] Type 2 diabetes mellitus with hyperglycemia, without long-term current use of insulin ([facility]) 08/25/[address] [facility] MEDICINE [address] [place] [phone] Leanne Alcazar [facility] Epigastric pain 08/25/[address] [facility] MEDICINE [address] [place] [phone] [place] [facility] CGM PA sensors from Last [...] MMR 11/10/2013,10/26/1998,07/31/1994 Meningococcal MCV4P ACYW-135 01/15/2007 Novel [id number]-[id number], all formulations 01/17/2009 Pfizer Covid-19 Vaccine 12+ [...] Mass Index 32.86 11/24/2024 3:02 PM EDT Plan of Treatment Upcoming Encounters Date Type Department Care Team (Late st Contact Info) Description 12/02/2024 11:00 AM EDT Office Visit [facility] MEDICINE [address] [place] [address] [place] [address] [place] [address] Health Maintenance Due Date Last Done Comments Disability Screening 1993 Alcohol/Substance Use Screening 2005 Family Planning (PISQ) 2008 Pneumococcal Vaccine: Pediatrics (0 to 5 Years) and At-Risk Patients (6 to 49) Years (2 of 2 - PCV) 01/17/2010 01/17/2009 Eye Exam 12/03/2023 12/02/2021 Diabetes: Foot Exam 09/05/2024 09/06/2023, 09/06/2023, 07/26/2022, Additional history exists COVID-19 Vaccine (2024- season) 2024 01/28/2023, 02/08/2021, 07/08/2020, Additional history exists Influenza Vaccine (#1) 2024 , 01/28/2023, 12/13/2021, Additional history exists SDOH Screening 12/01/2024 12/02/2023 Depression Screening 01/26/2025 01/27/2024, 01/27/20 24 Diabetes: Hemoglobin A1C 02/23/2025 025, 07/29/2024, 03/16/2024, Additional history exists Lipid Panel 06/25/2025 06/25/2024, 07/03, 12/13/2021 Tobacco Screening 11/19/2025 11/19/2024 DTaP/Tdap/Td Vaccines (9 - Td or Tdap) [...] hyperglycemia, without long-term current use of insulin ([facility]) POCT GLUCOSE Routine 11/24/2024 3:15 PM EDT Type 2 diabetes mellitus with hyperglycemia, without long-term current use of insulin ([facility]) BASIC METABOLIC PANEL Routine 11/24/2024 2:03 PM EDT BASIC METABOLIC PANEL Routine 11/24/2024 2:03 PM EDT BASIC METABOLIC PANEL Routine 11/24/2024 2:03 PM EDT LIPASE Routine 11/24/2024 2:03 PM EDT Cyclical vomiting HEPATIC FUNCTION PANEL Routine 11/24/2024 2:03 PM EDT Cyclical vomiting CBC WITH AUTO DIFFERENTIAL Routine 11/24/2024 2:03 PM EDT Cyclical vomiting POCT INFLUENZA B (ID NOW RAPID MOLECULAR) Routine 11/19/2024 3:29 PM EDT Viral URI POCT INFLUENZA A (ID NOW RAPID MOLECULAR) Routine 11/19/2024 3:29 PM EDT Viral URI POCT RAPID STREP A Routine 11/19/2024 3: 29 PM EDT Viral URI POCT RAPID COVID ANTIGEN Routine 11/19/2024 3:29 PM EDT Viral URI LIPID PANEL, STANDARD Routine 06/25/2024 2:45 PM EDT ZZZ HISTORICAL HEPATITIS C AB W/REFL TO HCV RNA, QN, PCR Routine 12/13/2021 11:51 AM EDT HIV 1/2 ANTIGEN/ANTIBODY, FOURTH GENERATION W/RFL Routine 12/13/2021 11:51 AM EDT from Last 3 Months or Most Recently Relevant to Health Maintenance Results * (ABNORMAL) POCT Urinalysis (11/24/2024 3:51 [...] None Detected Urine 11/24/2024 3:51 PM EDT Devin Rodriguez MD POINT OF [...] Urine Negative Negative QC Media Lot # [id number] U Lot# Expiration Date Urine Urine specimen obtained by clean catch procedure / Unknown 11/24/2024 3:47 PM EDT Result [facility] Devin Rodriguez MD POINT OF CARE TEST EN TER/EDIT ORDERABLES Final Result * ECG 12 lead (11/24/2024 3:45 PM EDT) Narrative Devin Valiente MD - 11/24/2024 3:45 PM EDT NSR, HR 72 bpm, no acute st t changes Result [facility] Devin Rodriguez MD ECG ORDERABLES Final Result * (ABNORMAL) POCT Hgb A1c (11/24/2024 3:17 PM EDT) Hemoglobin A1C 7.0(A) 4.0 - 5.7 % QC Media Lot # [id number] Lot# Expiration Date 608, Blood 11/24/2024 3:17 PM EDT Devin Rodriguez MD POINT OF CARE TEST EN TER/EDIT ORDERABLES Final Result * POCT Glucose (11/24/2024 3:15 PM EDT) Glucose Blood, POC 120 60 - 200 mg/dL QC Media Lot # [id number] Lot# Expiration Date Blood Capillary blood specimen / Unknown 11/24/2024 3:15 PM EDT us Devin Rodriguez MD POINT OF CARE TEST EN TER/EDIT ORDERABLES Final Result * (ABNORMAL) CBC auto differential (11/24/2024 2:03 PM EDT) White Blood Count 7.7 4.8 - 10.8 X10*3/uL [facility] Red Blood Count 3.73(L) 4.60 - 5.80 X10*6/uL [facility] Hemoglobin 10.6(L) 14.0 - 18.0 g/dl [facility] Hematocrit 31.0(L) 42.0 - 52.0 % [facility] Mean Corpuscular Volume 83.1 80.0 - 98.0 fL [facility] Mean Corpuscular Hemoglobin 28.4 27.0 - 33.0 pg [facility] Mean Corpuscular HGB Conc 34.2 31.0 - 36.0 g/dl [facility] Red Cell Distribution Width 12.4 11.0 - 16.0 % [facility] Platelet Count 234 160 - 400 X10*3/uL [facility] Mean Platelet Volume 9.8 9.4 - 12.4 fL [facility] Neutrophils Percent Auto 71.5 45 - 73 % [facility] Imm Gran Pct Auto 0.3 0.0 - 0.4 % [facility] Lymphocytes Percent Auto 19.4(L) 20 - 40 % [facility] Monocytes Percent Auto 7.8 2 - 11 % [facility] Eosinophils Percent Auto 0.6 0 - 4 % [facility] Basophils Percent Auto 0.4 0 - 2 % [facility] NRBC Pct Auto 0.0 0.0 - 0.2 /100WBC [facility] Neutrophils Absolute Auto 5.5 2.0 - 8.3 x10*3/uL [facility] Imm Gran Abs Auto 0.02 0.00 - 0.03 X10*3/uL [facility] Lymphocytes Absolute Auto 1.5 1.2 - 4.9 X10*3/uL [facility] Monocytes Absolute Auto 0.6 0.1 - 1.2 X10*3/uL [facility] Eosinophils Absolute Auto 0.1 0.0 - 0.4 X10*3/uL [facility] Basophils Absolute Auto 0.0 0.0 - 0.2 X10*3/uL [facility] NRBC Abs Auto 0.000 0.0 - 0.012 X10*3/uL [facility] Blood Venous blood specimen / Unknown 11/24/2024 2:03 PM EDT 11/24/2024 4:09 PM EDT Vivian Jitendra LAB BLOOD ORDERABLES Final R esult Performing Organization Address City/[facility]/ZIP Co de Phone Number [facility] [address] [place] [phone] * Lipase (11/24/2024 2:03 PM EDT) Lipase 48 8 - 78 U/L [facility] Blood Venous blood specimen / Unknown 11/24/2024 2:03 PM EDT 11/24/2024 4:09 PM EDT Vivian Ham LAB BLOOD ORDERABLES Final R esult Performing Organization Address City/[facility]/ZIP Co de Phone Number [facility] [address] [place] [phone] * (ABNORMAL) Hepatic Function Panel (11/24/2024 2:03 PM EDT) Bilirubin, Total 1.3(H) 0.0 - 1.0 mg/dL [facility] Bilirubin, Direct 0.3 0.0 - 0.5 mg/dL [facility] Aspartate Amino Transferase 21 5 - 37 U/L [facility] Alanine Aminotransferase 15 0 - 40 U/L [facility] Total Protein 6.4(L) 6.5 - 8.0 g/dL [facility] Albumin Level 3.7 3.5 - 5.0 g/dL [facility] Alkaline Phosphatase 83 39 - 117 U/L [facility] Blood Venous blood specimen / Unknown 11/24/2024 2:03 PM EDT 11/24/2024 4:09 PM EDT us Vivian Ham DO LAB BLOOD ORDERABLES Final R esult Performing Organization Address City/[facility]/ZIP Co de Phone Number [facility] [address] [place] [phone] * (ABNORMAL) Basic Metabolic Panel (11/24/2024 2:03 PM EDT) Only the most recent of2 resultswithin the time period is included. Sodium 139 135 - 145 mmol/L [facility] Potassium 3.7 3.3 - 5.1 mmol/L [facility] Chloride 104 96 - 108 mmol/L [facility] Carbon Dioxide 26 22 - 29 mmol/L [facility] Anion Gap 13 12 - 20 [facility] Urea Nitrogen (BUN) 22(H) 9 - 16 mg/dL [facility] Creatinine, Serum 1.97(H) 0.5 - 1.4 mg/dL [facility] Estimated Glomerular Filt Rate 40 [facility] Comment:Chronic Kidney Disea se: Estimated GFR < 60 mL/min/1.26s6Asmcys Kidney Disease: Estimated GFR < 15 mL/min/1.73m2 Glucose 123(H) 60 - 115 mg/dL [facility] Calcium 9.0 8.4 - 10.2 mg/dL [facility] 11/24/2024 2:03 PM EDT 11/24/2024 4:09 PM EDT us Generic External Data Provider LAB BLOOD ORDERAB LES Final Result Performing Organization Address [facility]/ZIP Co de Phone Number [facility] [address] [place] [phone] * Influenza B (ID NOW Rapid Molecular) (11/19/2024 3:29 PM EDT) [facility] Influenza B Negative Negative, Indeterminate [facility] Swab 11/19/2024 3:29 PM EDT us Vivian Ham DO POINT OF CARE TEST ENTER/CHAPINCITO T ORDERABLES Final Result Performing Organization Address [facility] Co de Phone Number [facility] [address] [place] [phone] * Influenza A (ID NOW Rapid Molecular) (11/19/2024 3:29 PM EDT) [facility] Influenza A Negative Negative, Indeterminate [facility] Swab 11/19/2024 3:29 PM EDT us Vivian Ham DO POINT OF CARE TEST ENTER/CHAPINCITO T ORDERABLES Final Result Performing Organization Address [facility] Co de Phone Number [facility] [address] [place] [phone] * POCT Rapid COVID Ag (11/19/2024 3:29 PM EDT) [facility] Rapid COVID Ag Negative [facility] Swab 11/19/2024 3:29 PM EDT us Vivian Ham DO POINT OF CARE TEST ENTER/CHAPINCITO T ORDERABLES Final Result Performing Organization Address [facility] de Phone Number [facility] [address] [place] [phone] * POCT rapid strep A manually resulted (11/19/2024 3:29 PM EDT) [facility] Rapid Strep A Screen Negative Negative, None Detected [facility] Swab 11/19/2024 3:29 PM EDT us Vivian Ham DO POINT OF CARE TEST ENTER/CHAPINCITO T ORDERABLES Final Result Performing Organization Address [facility] Co de Phone Number [facility] [address] [place] [phone] * (ABNORMAL) Lipid Panel, Standard (06/25/2024 2:45 PM EDT) Triglycerides 167(H) <150 mg/dL [facility] Comment:Desirable Triglyceri de: less than 150 mg/dLBorderline High Triglyceride 150-199 mg/dLHigh Triglyceride: 200-499 mg/dLVery High Triglyceride: greater than or equal to 5OO mg/dL Cholesterol 139 <200 mg/dL [facility] Comment:Desirable Cholestero l: less than 200 mg/dLBorderline High Cholesterol: 200-239 mg/dLHigh Cholesterol: greater than 239 mg/dL LDL Cholesterol Calculated 64 <100 mg/dL [facility] Comment:Desirable LDL: less than 100 mg/dLNear Optimal/Above Optimal LDL: 110- 129 mg/dLBorderline High LDL: 130-159 mg/dLHigh LDL: 160-189 mg/dLVery High LDL: greater than or equal to 190 mg/dL HDL Cholesterol 42 >40 mg/dL [facility] Comment:Desirable HDL: great er than 40 mg/dL Note: This HDL assay may give artificially low results in patients with liver disease. 06/25/2024 2:45 PM EDT 06/25/2024 2:45 PM EDT Generic External Data Provider LAB BLOOD ORDERAB LES Final Result Performing Organization Address [facility] Co de Phone Number [facility] [address] [place] [phone] [phone] * HEPATITIS C AB W/REFL TO [...] a test for HCV RNA (test code 44055) is suggested. For additional information please refer to [email or web address]/[email or web address] (This link is being provided for informational/ educational purposes only.) 12/13/2021 11:5 1 AM EDT [facility] HISTORICAL/NON ORDERABLE LABS Final Result Performing Organization Address [facility] Co de Phone Number [employer] LABS * HIV 1/2 ANTIGEN/ANTIBODY,FOURTH GENERATION W/RFL (12/13/2021 11:51 AM EDT) Pathologist [facility] [place] HIV-1/2 ANTIGEN AND ANTIBODIES, 4TH GENERATION W/ [...] purpose. For additional information please refer to http://[employer]/faq/RYN524 (This link is being provided for informational/ educational purposes only.) The performance of this assay has not been clinically validated in patients less than 2 years old. 12/13/2021 11:5 1 AM EDT [facility] LAB BLOOD ORDERABLES Final Re sult Performing Organization Address [facility] Co de Phone Number CONVERTED LEGACY LABS from Last 3 Months or Most Recently Relevant to Health Maintenance Insurance [facility] C3 Care Teams Guinea Pig Breeder Relationship Specialty Start Date End Date Leanne Alcazar FNP [address] [place] [id number] PCP - General Family Medicine 12/13/21
--- OUTSIDE RECORDS SUMMARY | 2024-11-24 17:01 | XMS_ITS | Encounter Summary ---
Author Organization [facility] Address [address] [place] [phone] Phone Care Team Providers Care Security Sergeant Name Role Phone Tete Sutherland MD Primary Care Provider Encounter Details Date Type Department Care Team (Late st Contact Info) Description 01/29/2012 Documentation [facility] [place] Family Medicine [address] [place] [address] Family Medicine, Physician [address] [place], [place] [phone] Social History Tobacco Use Types Packs/Day Years [...] on filedocumented in this encounter Care Teams Security Sergeant Relationship Specialty Start Date End Date Tete Sutherland MD [address] [place] [address] SULMA Narayan [id number] PCP - General 10/12/16 08/27/22 documented as of this encounter
--- OUTSIDE RECORDS SUMMARY | 2024-11-24 17:01 | XMS_ITS | Encounter Summary ---
Author Organization [facility] Address [address] [place] [id number] Phone Care Team Providers Care Tombstone Carver Name Role Phone Tete Sutherland MD Primary Care Provider [phone] Encounter Details Date Type Department Care Team (Late st Contact Info) Description 02/04/2014 Documentation [facility] Family Medicine [address] [place] [address] Family Medicine, Physician [address] [place], [place] [phone] Social History Tobacco Use Types Packs/Day Years [...] on filedocumented in this encounter Care Teams Tombstone Carver Relationship Specialty Start Date End Date Tete Sutherland MD [address] [place] [address] [place] [address] PCP - General 10/12/16 08/27/22 documented as of this encounter
--- OUTSIDE RECORDS SUMMARY | 2024-11-24 17:01 | XMS_ITS | Encounter Summary ---
Author Organization [facility] Address [address] [place] [address] Phone Care Team Providers Care Certified Coding Specialist Name Role Phone Tete Sutherland MD Primary Care Provider Encounter Details Date Type Department Care Team (Late st Contact Info) Description 08/05/2009 Documentation [facility] [address] [place] [address] Family Medicine, Physician [address] [place], [place] [phone] Social History Tobacco Use Types Packs/Day Years [...] on filedocumented in this encounter Care Teams Certified Coding Specialist Relationship Specialty Start Date End Date Tete Sutherland MD [address] [place] [address] SULMA Narayan [id number] PCP - General 10/12/16 08/27/22 documented as of this encounter
[2024-11-24 17:17] LABS: Amylase 57 U/L (28-100)
[2024-11-24 18:57] LABS: Appearance Urine Clear; Glucose Urine UA 250 mg/dL (Negative); PH 6.0 (5.0-9.0); Specific Gravity - Urine 1.020 (1.005-1.025); UMIC TRIGGER UA YES
== END 2024-11-24 13:48 | disposition home or self-care (01) ==
LOC: HO.HHCL 13:47
PROVIDERS: Internal Medicine; PCP Registered Nurse; Referring Provider Family Medicine; Visit Provider Internal Medicine Hypertension Specialist
DX: E11.22 Type 2 diabetes mellitus with diabetic chronic kidney disease (principal); I12.9 Hypertensive chronic kidney disease with stage 1 through stage 4 chronic kidney disease, or unspecified chronic kidney disease; N18.30 Chronic kidney disease, stage 3 unspecified; R11.15 Cyclical vomiting syndrome unrelated to migraine; N17.9 Acute kidney failure, unspecified; R31.21 Asymptomatic microscopic hematuria
CPT/HCPCS: 36415; 80048; 80076; 81001; 82150; 83690; 85025

== ENCOUNTER 2024-11-24 16:40 | Emergency (ER) | payer MEDICAID, SELFPAY ==
--- NOTE | ~2024-11-24 | CT_ITS ---
CLINICAL HISTORY: elevated bUN and Cr flank pain wekaness CT abdomen and pelvis without contrast Comparison: CT/SR - CT ABDOMEN PELVIS WO IV CON - 07/02/24 16:42 EDT Findings: LIMITED CHEST: Lung bases are clear. LIVER: No focal liver lesion. BILIARY: No gallbladder wall thickening, radiopaque stone, or ductal dilatation. PANCREAS: No mass or ductal dilatation. SPLEEN: No splenomegaly. KIDNEYS: No hydronephrosis or radiopaque stone. ADRENALS: No nodule. VASCULAR: No aneurysm. RETROPERITONEUM: No lymphadenopathy or mass. BOWEL/MESENTERY: No mass or wall thickening. No evidence of obstruction. No free fluid or air. Appendectomy. ABDOMINAL WALL: No mass or significant abnormality. URINARY BLADDER: Circumferential thickening of the bladder. PELVIC NODES: No pelvic lymphadenopathy. PELVIC ORGANS: Normal for age. BONES: No acute fracture. OTHER: Negative. IMPRESSION: Circumferential thickening of the bladder, correlate with urinalysis for cystitis. No nephrolithiasis or hydronephrosis. This document has been electronically signed by: Maria Luisa Chappell MD on 11/24/2024 22:03:59
[2024-11-24 16:50] VITALS: BP 188/82; PULSE 74; RESP 18; TEMP 36.7; O2SAT 99; BMI 33.7
--- NOTE | 2024-11-24 16:50 | ECG_ITS ---
Test Reason : CP Blood Pressure : */* mmHG Vent. Rate : 81 BPM Atrial Rate : 81 BPM P-R Int : 110 ms QRS Dur : 96 ms QT Int : 368 ms P-R-T Axes : 40 34 62 degrees QTcB Int : 427 ms Sinus rhythm with short FL Otherwise normal ECG When compared with ECG of 23-Sep-2024 22:09, Vent. rate has decreased by 56 bpm Referred By: Generic ED Physician Electronically Signed By: Marcus Valdes
[2024-11-24 16:57] LABS: Glucose, Whole Blood 119 mg/dL (60-115)
[2024-11-24 17:06] LABS: MANUAL DIFF FLAG NO
[2024-11-24 17:08] LABS: Hematocrit 30.3 % (42.0-52.0); Hemoglobin 10.7 g/dl (14.0-18.0); Imm Gran Abs Auto 0.01 X10*3/uL (0.00-0.03); Imm Gran Pct Auto 0.1 % (0.0-0.4); Lymphocytes Absolute Auto 1.8 X10*3/uL (1.2-4.9); Mean Corpuscular HGB Conc 35.3 g/dl (31.0-36.0); Mean Corpuscular Hemoglobin 29.0 pg (27.0-33.0); Mean Corpuscular Volume 82.1 fL (80.0-98.0); NRBC Abs Auto 0.000 X10*3/uL (0.0-0.012); NRBC Pct Auto 0.0 /100WBC (0.0-0.2); Platelet Count 189 X10*3/uL (160-400); Red Blood Count 3.69 X10*6/uL (4.60-5.80); White Blood Count 7.6 X10*3/uL (4.8-10.8)
--- NOTE | 2024-11-24 17:17 | PC.NURSE ---
Pt BIBA after being seen at walk in clinic and noted to have HTN with BP in 200's/100's. Pt noted to be tearful on arrival and reports an increase in anxiety/stress levels. EKG obtained, pt placed on bedside monitor.
[2024-11-24 17:24] LABS: Alanine Aminotransferase 15 U/L (0-40); Albumin Level 3.6 g/dL (3.5-5.0); Alkaline Phosphatase 79 U/L (39-117); Anion Gap 12 (12-20); Aspartate Amino Transferase 21 U/L (5-37); Blood Urea Nitrogen 23 mg/dL (9-16); Calcium 9.0 mg/dL (8.4-10.2); Carbon Dioxide 27 mmol/L (22-29); Chloride 105 mmol/L (96-108); Creatinine Clr Calc Pharmacy 56.4; Estimated Glomerular Filt Rate 37; Potassium 4.0 mmol/L (3.3-5.1); Sodium 140 mmol/L (135-145); Total Protein 6.3 g/dL (6.5-8.0)
--- NOTE | 2024-11-24 17:26 | ED_ITS ---
HPI - Chest Pain General Chief Complaint: Chest Pain Stated Complaint: htn, blood in urine Time Seen by Provider: 11/24/24 17:22 Source: patient and EMS Mode of arrival: EMS Limitations: no limitations History of Present Illness ED Provider: ANGEL Crook HPI narrative: This is a 29-year-old male past medical history significant for hypertension, CKD, diabetic neuropathy, cardiomyopathy, cannabis induced hyperemesis syndrome, GERD who presents to the emergency department with complaints of hypertension noted at walk-in clinic he was noted to be 200/100, he reports nausea and heartburn. He also reported intermittent substernal chest pain nonradiating. He describes it as a fluttering/heaviness in the chest that goes away with on its own. Unable to tell me what precipitates this. No associated shortness breath. Denies recent illness. Denies fevers, chills, shortness of breath, nausea, vomiting, abdominal pain, headache, vision changes, dizziness and weakness. Patient last smoked two days ago and doesnt take his BP meds. Related Data Home Medications ?Medication ?Instructions ?Recorded ?Confirmed carvedilol 25 mg tablet 25 mg PO BID 02/06/24 escitalopram oxalate 10 mg tablet 10 mg PO DAILY 02/2411/12/24 insulin glargine 100 unit/mL (3 10 unit subcut BEDTIME 07/03/24 11/12/24 mL) subcutaneous pen (Lantus Solostar U-100 Insulin) flash glucose sensor (FreeStyle #1 ea 07/29/[address] 2 Sensor kit) pen needle, diabetic 31 gauge x #1,200 ea 07/29/2401/26 lorazepam 0.5 mg tablet 0.5 mg PO BID PRN nausea/vom iting 10/27/24 11/12/24 Previous Rx's ?Medication ?Instructions ?Recorded famotidine 20 mg tablet 20 mg PO BEDTIME #30 tabs amlodipine 10 mg tablet (Norvasc) 10 mg PO DAILY #90 t abs 07/05/24 losartan 100 mg tablet 100 mg PO DAILY #90 tabs 02/25 sucralfate 1 gram tablet 1 g PO BEDTIME #30 tabs 10/03 08/26 esomeprazole magnesium 20 mg 20 mg PO BID #60 caps capsule,delayed release (Nexium) furosemide 20 mg tablet (Lasix) 20 mg PO DAILY #90 tab s 11/12/24 famotidine 20 mg tablet (Pepcid) 20 mg PO BID #28 tabs 11/24/24 ondansetron 4 mg disintegrating 4 mg PO Q8H PRN nausea and 11/24/24 tablet vomiting #14 tabs Allergies Allergy/AdvReac Type Severity Reaction Status Date / Time No Known Allergies (No Known Allergy Verified 11/24/24 16:52 Allergies*) Review of Systems 2 Review of Systems: Yes all other systems are reviewed and are negative [facility] Past Medical History Attestation statement: The following information was validated with the patient. Source: old records reviewed and nursing notes reviewed Medical History GERD (gastroesophageal reflux disease) Chronic kidney disease Cannabis hyperemesis syndrome concurrent with and due to cannabis dependence Cannabis use disorder Hypertension Anxiety Chest pain ADHD Generalized anxiety disorder Type 2 diabetes mellitus Hypertension Surgical History [place] teeth extracted History of appendectomy History of eye surgery (~06/2022) Family History Family History Father HTN (hypertension) Mother Arthritis Sister Lupus (systemic lupus erythematosus) Social History Social History Household Members: Spouse and Children Housing: Apartment Do you presently have visiting nurse or other home services: No Alcohol intake: former Patient Tobacco Use Status: Never used Tobacco Smoked in Last 30 Days: No e-Cigarette/Vaping Use: Never Used Second Hand Smoke Exposure: No (N/A) Use of substances other than those prescribed or required for medical reasons: Yes Substance Use Type: Marijuana Advance Directives: Yes Advance Directives on File: Yes Advance Directives Date on File: 11/01/23 service: No Physical Exam 2 Exam: Exam: see below Vital Signs: Vital Signs: Last Vital Signs Temp 98.4 F 11/24/24 22:20 Pulse 79 11/24/24 22:20 Resp 15 11/24/24 22:20 BP 155/71 H 11/24/24 22:20 Pulse Ox 98 11/24/24 22:20 O2 Del Method Room Air 11/24/24 22:20 BMI result Body Mass Index 33.7 vss Appearance: Alert.? Oriented X3.? No acute distress.? Head: Normocephalic, atraumatic, no step-offs or deformities Eyes: Pupils equal, round and reactive to light.? Neck: Normal inspection.? Neck supple.? CVS: Normal heart rate and rhythm.? Pulses normal.? Respiratory: No respiratory distress.? Breath sounds normal.? Abdomen: Soft and nontender.? Skin: Skin warm and dry.? Normal skin color.? Normal skin turgor.? Extremities: No lower extremity edema.? No calf ttp. 5/5 strength to bilateral upper and lower extremities Back: No midline tenderness, no C-spine tenderness, full range of motion, no CVA tenderness bilaterally Neuro: Oriented X 3.? No motor deficit.? No sensory deficit. CN 2-12 intact Course Reevaluation(s) Reevaluation #1: I did review cardiology notes from 03/03/2024 which state Chest pain syndrome in this young man most of the episodes in relation to elevated blood pressure. Chest pain syndrome has improved but still present intermittently and not always with exertion. Atypical symptoms although given his longstanding history of insulin-requiring diabetes for more than a decade as well as hypertension family history ischemic heart disease needs to be ruled out despite his age. I would suggest him to undergo exercise myocardial perfusion imaging for further evaluation for myocardial ischemia. Further treatment based on the findings. Other possibility includes subendocardial ischemia related to cardiomyopathy and elevated blood pressure in absence of epicardial coronary disease. This was discussed with him. Continue aggressive blood pressure control and risk factor modification. Given his longstanding diabetes and hypertension should be on statin therapy, high-intensity to target goal LDL less than 70 mg/dL. Dr. Lauren Time: 17:33 Reevaluation #2: Patient tells me he is feeling very ?weak . CBC with normocytic anemia. Chemistry with elevation in BUN and creatinine. Negative CPK. Negative troponin. UA without infection moderate amounts of blood I will obtain a CT abdomen. Time: 20:44 Reevaluation #3: Sign out to Amarjit ORTIZ Pending repeat CMP which i ordered and CT abd as well as revaluation Additional Reevaluation(s): 11:26 PM 11/24/2024 (Sultana ORTIZ): Patient is signed out to this provider at shift change, in summary the patient is a 29-year-old male with a history of cyclic vomiting, CKD stage 2, hypertension, and GERD, presenting to the ED for evaluation cyclic vomiting, intermittent chest pain, and hypertension. The patient was determined to be noncompliant with his antihypertensive medications, patient underwent cardiac workup and was treated for cyclic vomiting with GI cocktail and IV fluid hydration. Hypertension was treated with the patient's home dosing of losartan and carvedilol. Patient's blood pressure improved, cardiac workup was benign, and patient was signed out pending repeat BMP and results of a CT abdomen and pelvis ordered to evaluate for alternative cause of vomiting. At this time the patient's BMP has resulted and renal function is at baseline, CT abdomen and pelvis shows question cystitis, recommendation for correlation with symptoms, no other acute findings. The patient has no urinary symptoms. Patient will be discharged to follow up with PCP. Patient educated to remain compliant with his hypertension medications. Medications Administered Discontinued Medications Generic Name Dose Route Start Last Admin Trade Name Freq PRN Reason Stop Dose Admin Al Hydroxide/Mg Hydroxide 15 ml 11/24/24 18:20 11/24/24 18:45 Magnesium Hydrox/Alum Hydrox 30 Ml Oral.Susp PO 11/24/24 18:21 15 ml ONCE ONE Administration Belladonna Alkaloids/Phenobarbital 10 ml 11/24/24 18:20 11/24/24 18:45 Phenobarb/Hyoscy/Atropine/Scop 10 Ml Elixir PO 11/24/24 18:21 10 ml ONCE ONE Administration Carvedilol 25 mg 11/24/24 18:05 11/24/24 18:15 Carvedilol 25 Mg Tablet PO 11/24/24 18:06 25 mg ONCE ONE Administration Protocol Sodium Chloride 1,000 mls @ 999 mls/hr 11/24/24 20:45 11/24/24 20:47 Ns IV 11/24/24 21:45 999 mls/hr .Q1H1M PRIYANKA Administration Sodium Chloride 1,000 mls @ 999 mls/hr 11/24/24 20:45 11/24/24 20:48 Ns IV 11/24/24 21:45 999 mls/hr .Q1H1M PRIYANKA Administration Losartan Potassium 100 mg 11/24/24 18:05 11/24/24 18:14 Losartan Potassium 50 Mg Tablet PO 11/24/24 18:06 100 mg ONCE ONE Administration Protocol Ondansetron HCl 4 mg 11/24/24 18:05 11/24/24 18:15 Ondansetron Odt 4 Mg Tab.James CASTANEDAU 11/24/24 18:06 4 mg ONCE ONE Administration Medical Decision Making Medical Decision Making [facility] Narrative: 1729 29-year-old male presents with hypertension and chest discomfort ongoing for the past few days. Was told to come in from a walk-in clinic Physical exam benign. No murmurs appreciated no rubs or gallops. Vital signs with noted hypertension. History and physical exam concerning for poorly controlled hypertension will rule out ACS. Unlikely pulmonary embolism Plan labs, imaging. Differential Diagnosis Differential Diagnoses: The differential diagnosis associated with the presentation includes (History and physical exam concerning for poorly controlled hypertension will rule out ACS. Unlikely pulmonary embolism) Admission/Observation Consideration of admission/observation: Escalation of care including admission/observation considered (possible ) Consult Healthcare Provider Management of the patient was discussed with: Hospitalist Lab Data [facility] Lab Attestation statement: I reviewed the patient's lab results. 11/24/24 17:02 11/24/24 21:13 Labs: Lab Results 11/24/24 11/24/24 11/24/24 Range/Units 16:48 17:02 20:48 WBC 7.6 (4.8-10.8) X10*3/uL RBC 3.69 L (4.60-5.80) X10*6/uL Hgb 10.7 L (14.0-18.0) g/dl Hct 30.3 L (42.0-52.0) % MCV 82.1 (80.0-98.0) fL MCH 29.0 (27.0-33.0) pg MCHC 35.3 (31.0-36.0) g/dl RDW 12.4 (11.0-16.0) % Plt Count 189 (160-400) X10*3/uL MPV 8.8 L (9.4-12.4) fL Immature Gran % (Auto) 0.1 (0.0-0.4) % Neut % (Auto) 64.7 (45-73) % Lymph % (Auto) 24.2 (20-40) % [place] % (Auto) 9.9 (2-11) % Eos % (Auto) 0.8 (0-4) % Baso % (Auto) 0.3 (0-2) % Lymph # (Auto) 1.8 (1.2-4.9) X10*3/uL [place] # (Auto) 0.8 (0.1-1.2) X10*3/uL Eos # (Auto) 0.1 (0.0-0.4) X10*3/uL Baso # (Auto) 0.0 (0.0-0.2) X10*3/uL Abs Immat Gran (auto) 0.01 (0.00-0.03) X10*3/uL Absolute Neuts (auto) 4.9 (2.0-8.3) x10*3/uL Absolute Nucleated RBC 0.000 (0.0-0.012) X10*3/uL Nucleated RBC % (auto) 0.0 (0.0-0.2) /100WBC Sodium 140 (135-145) mmol/L Potassium 4.0 (3.3-5.1) mmol/L Chloride 105 (96-108) mmol/L Carbon Dioxide 27 (22-29) mmol/L Anion Gap 12 (12-20) BUN 23 H (9-16) mg/dL Creatinine 2.11 H (0.5-1.4) mg/dL Estim Creat Clear Calc 56.4 Estimated GFR 37 POC Glucose 119 H (60-115) mg/dL Random Glucose 115 (60-115) mg/dL Calcium 9.0 (8.4-10.2) mg/dL Total Bilirubin 1.2 H (0.0-1.0) mg/dL AST 21 (5-37) U/L ALT 15 (0-40) U/L Alkaline Phosphatase 79 (39-117) U/L Total Creatine Kinase 135 (38-174) U/L Troponin I High Sens < 2.7 3.3 (<3.5-35.0) ng/L Total Protein 6.3 L (6.5-8.0) g/dL Albumin 3.6 (3.5-5.0) g/dL 11/24/24 Range/Units 21:13 WBC (4.8-10.8) X10*3/uL RBC (4.60-5.80) X10*6/uL Hgb (14.0-18.0) g/dl Hct (42.0-52.0) % MCV (80.0-98.0) fL MCH (27.0-33.0) pg MCHC (31.0-36.0) g/dl RDW (11.0-16.0) % Plt Count (160-400) X10*3/uL MPV (9.4-12.4) fL Immature Gran % (Auto) (0.0-0.4) % Neut % (Auto) (45-73) % Lymph % (Auto) (20-40) % [place] % (Auto) (2-11) % Eos % (Auto) (0-4) % Baso % (Auto) (0-2) % Lymph # (Auto) (1.2-4.9) X10*3/uL [place] # (Auto) (0.1-1.2) X10*3/uL Eos # (Auto) (0.0-0.4) X10*3/uL Baso # (Auto) (0.0-0.2) X10*3/uL Abs Immat Gran (auto) (0.00-0.03) X10*3/uL Absolute Neuts (auto) (2.0-8.3) x10*3/uL Absolute Nucleated RBC (0.0-0.012) X10*3/uL Nucleated RBC % (auto) (0.0-0.2) /100WBC Sodium 142 (135-145) mmol/L Potassium 3.5 (3.3-5.1) mmol/L Chloride 107 (96-108) mmol/L Carbon Dioxide 25 (22-29) mmol/L Anion Gap 14 (12-20) BUN 22 H (9-16) mg/dL Creatinine 2.01 H (0.5-1.4) mg/dL Estim Creat Clear Calc 59.2 Estimated GFR 39 POC Glucose (60-115) mg/dL Random Glucose 104 (60-115) mg/dL Calcium 8.4 D (8.4-10.2) mg/dL Total Bilirubin 1.0 (0.0-1.0) mg/dL AST 19 (5-37) U/L ALT 12 (0-40) U/L Alkaline Phosphatase 70 (39-117) U/L Total Creatine Kinase (38-174) U/L Troponin I High Sens (<3.5-35.0) ng/L Total Protein 5.6 L (6.5-8.0) g/dL Albumin 3.2 L (3.5-5.0) g/dL Independent Interpretation I performed an independent interpretation of an: CT Scan (pending ) Radiology Impression Discussion of test interpretation with radiology: I have reviewed the radiologist's reading. Radiologist Impression: CLINICAL HISTORY: elevated bUN and Cr flank pain wekaness CT abdomen and pelvis without contrast Comparison: CT/SR - CT ABDOMEN PELVIS WO IV CON - 07/02/24 16:42 EDT Findings: LIMITED CHEST: Lung bases are clear. LIVER: No focal liver lesion. BILIARY: No gallbladder wall thickening, radiopaque stone, or ductal dilatation. PANCREAS: No mass or ductal dilatation. SPLEEN: No splenomegaly. KIDNEYS: No hydronephrosis or radiopaque stone. ADRENALS: No nodule. VASCULAR: No aneurysm. RETROPERITONEUM: No lymphadenopathy or mass. BOWEL/MESENTERY: No mass or wall thickening. No evidence of obstruction. No free fluid or air. Appendectomy. ABDOMINAL WALL: No mass or significant abnormality. URINARY BLADDER: Circumferential thickening of the bladder. PELVIC NODES: No pelvic lymphadenopathy. PELVIC ORGANS: Normal for age. BONES: No acute fracture. OTHER: Negative. IMPRESSION: Circumferential thickening of the bladder, correlate with urinalysis for cystitis. No nephrolithiasis or hydronephrosis. This document has been electronically signed by: Maria Luisa Chappell MD on 11/24/2024 22:03:59 Chronic Conditions Patient?s care impacted by: Hypertension and Other (see hpi ) Critical Care Time Critical Care Time Critical Care Time: Yes Total Critical Care Time: 35 Attestation: I attest to this time spent taking care of the patient, obtaining history, physical, reviewing labs, imaging, speaking to my attending and or speaking to specialist. Or preforming a procedure Discharge Plan Discharge Clinical Impression: Uncontrolled hypertension, Acute kidney injury superimposed on CKD, Chest pain, Cannabis hyperemesis syndrome concurrent with and due to cannabis dependence GERD (gastroesophageal reflux disease) Qualifiers: Esophagitis presence: esophagitis presence not specified Qualified Code(s): K 21.9 - Gastro-esophageal reflux disease without esophagitis Patient Disposition: Home, Self-Care Instructions: Chronic Kidney Disease (ED), GERD (Gastroesophageal Reflux Disease) (ED), Cannabis Use Disorder (ED), Hypertension (ED) Additional Instructions: Thank you for choosing [facility]'s Emergency Department for your care today. Your laboratory evaluation, EKG, CT abdomen and pelvis, and exam today are reassuring. At this time there is no indication for admission to the hospital or continued ED observation, and it is safe to discharge you home. Your blood pressure improved with taking your home blood pressure medication, and your other symptoms improved following IV fluid hydration and treatment for gastritis. Please take Zofran as needed for any additional nausea or vomiting, please take Pepcid as directed for the next 2 weeks to reduce gastritis/GERD symptoms. You may take alternating (staggered) doses of ibuprofen 600mg and Tylenol 1000mg every 4 hours as needed for any additional pain. Please stay well hydrated and get plenty of rest. Please follow up with your primary care physician for re-evaluation, additional management of your symptoms, and continued preventative care. If you do not have a primary care physician, please call the [facility] at [phone] to establish a new primary care physician. While waiting to establish your new primary care physician, you can call our Walk-in Care Clinic at [phone] for non-emergency needs. Please return to the emergency department if you develop a severe or sudden change in your symptoms, a fever over 100.4 that does not improve with Tylenol or Ibuprofen, recurrent vomiting, or any other new or worsening symptoms or concerns. Prescriptions: New famotidine [Pepcid] 20 mg tablet 20 mg PO BID Qty: 28 0RF ondansetron 4 mg tablet,disintegrating 4 mg PO Q8H PRN (Reason: nausea and vomiting) Qty: 14 0RF No Action famotidine 20 mg tablet 20 mg PO BEDTIME Qty: 30 3RF esomeprazole magnesium [Nexium] 20 mg capsule,delayed release(DR/EC) 20 mg PO BID Qty: 60 4RF carvedilol 25 mg tablet 25 mg PO BID escitalopram oxalate 10 mg tablet 10 mg PO DAILY insulin glargine [Lantus Solostar U-100 Insulin] 100 unit/mL (3 mL) insulin pen 10 unit subcut BEDTIME amlodipine [Norvasc] 10 mg tablet 10 mg PO DAILY Qty: 90 0RF (DME) pen needle, diabetic 31 gauge x 3/16 needle See Rx Instructions .ROUTE DAILY Qty: 1200 Rx Instructions: As directed (DME) FreeStyle Ave 2 Sensor Kit See Rx Instructions .ROUTE Q2W Qty: 1 Rx Instructions: As directed losartan 100 mg tablet 100 mg PO DAILY Qty: 90 5RF furosemide [Lasix] 20 mg tablet 20 mg PO DAILY Qty: 90 0RF lorazepam 0.5 mg tablet 0.5 mg PO BID PRN (Reason: nausea/vomiting) sucralfate 1 gram tablet 1 g PO BEDTIME Qty: 30 3RF Referrals: Leanne Alcazar, [employer] [Primary Care Provider, Medical] Clinical Impression: Uncontrolled hypertension; GERD (gastroesophageal reflux disease) Print Language: Mongolian
[2024-11-24 17:33] LABS: Troponin-I High Sensitivity < 2.7 ng/L (<3.5-35.0)
[2024-11-24 18:00] VITALS: BP 170/75; PULSE 94
[2024-11-24 18:14] VITALS: BP 170/75
[2024-11-24 18:15] VITALS: BP 170/74; PULSE 94
[2024-11-24] MEDS: PHENobarb/Hyoscy/Atropine/Scop 10 ML ELIXIR PO (18:45)
[2024-11-24] MEDS: Magnesium Hydrox/Alum Hydrox 30 ML ORAL.SUSP 15 ML PO (18:45)
[2024-11-24 21:12] LABS: Troponin-I High Sensitivity 3.3 ng/L (<3.5-35.0)
[2024-11-24 21:36] LABS: Alanine Aminotransferase 12 U/L (0-40); Albumin Level 3.2 g/dL (3.5-5.0); Alkaline Phosphatase 70 U/L (39-117); Anion Gap 14 (12-20); Aspartate Amino Transferase 19 U/L (5-37); Blood Urea Nitrogen 22 mg/dL (9-16); Calcium 8.4 mg/dL (8.4-10.2); Carbon Dioxide 25 mmol/L (22-29); Chloride 107 mmol/L (96-108); Creatinine Clr Calc Pharmacy 59.2; Estimated Glomerular Filt Rate 39; Potassium 3.5 mmol/L (3.3-5.1); Sodium 142 mmol/L (135-145); Total Protein 5.6 g/dL (6.5-8.0)
[2024-11-24 22:20] VITALS: BP 155/71; PULSE 79; RESP 15; TEMP 36.9; O2SAT 98
--- NOTE | 2024-11-25 00:11 | PC.NURSE ---
pt was sleeping upon entering room. upon awakening pt reports pain remains 7/10. Amarjit ORTIZ made aware and per PA pt is ready for discharge and home care instructions include to take tylenol/ibuprofen as needed for pain. pt verbalizes understanding and states he can take these meds at home. pt is axox4. vitals as documented. verbalizes understanding d/c instructions. states called his to pick him up. nad. iv removed. pt discharged home.
[2024-11-25 00:13] VITALS: BP 160/81; PULSE 74; RESP 15; TEMP 36.9; O2SAT 98
== END 2024-11-25 00:14 | disposition home or self-care (01) ==
PROVIDERS: Physician Assistant; Emergency Provider Emergency Medicine; PCP Registered Nurse
DX: K21.9 Gastro-esophageal reflux disease without esophagitis (principal); R07.89 Other chest pain; I10 Essential (primary) hypertension; R31.9 Hematuria, unspecified; I48.92 Unspecified atrial flutter; E11.9 Type 2 diabetes mellitus without complications; R11.0 Nausea; Z79.4 Long term (current) use of insulin; Z79.899 Other long term (current) drug therapy
CPT/HCPCS: 36415; 74176; 80053; 82550; 82947; 84484; 85025; 93005; 96360; 99285

== ENCOUNTER → 2024-11-24 16:50 | Outpatient (BNV) | payer MEDICAID, SELFPAY | PROVIDERS: Emergency Provider Emergency Medicine; PCP Registered Nurse; Visit Provider Internal Medicine Cardiovascular Disease | DX: R07.2 Precordial pain (principal) | CPT/HCPCS: 93010 ==

== ENCOUNTER → 2024-11-24 20:45 | Outpatient (BNV) | payer MEDICAID, SELFPAY | PROVIDERS: Emergency Provider Emergency Medicine; PCP Registered Nurse; Visit Provider Student in an Organized Health Care Education/Training Program | DX: N32.89 Other specified disorders of bladder (principal) | CPT/HCPCS: 74176 ==